=== PATIENT | female | born 1935 | race Caucasian/White ===

== ENCOUNTER → 2018-03-19 | Outpatient (CLI) | payer MEDICARE, OTHER ==
[~2018-03-19] MED LIST: AC325T PO; ACET-77 PO; ACHD5005 PO; ACID1TAB PO; ASPI-586 PO; ASPI81TA16 PO; BYSTOLIC; CA C1TAB26 PO; CEPH500C PO; CHOL100011 PO; CHOL4PAC PO; CITA20TA4 PO; CITA20TA9 PO; CITALOPRAM; CTLP20T PO; DOCU100C37 PO; Ibuprofen PO; LACT1TAB10 PO; LISI-552 PO; LISI10TA PO; LISI40TA PO; LISINOPRIL; LNZ600T PO; MGX400T PO; NEBI5TAB8 PO; NFNEB10T PO; NIAC1TBM5 PO; OMEG1CAP51 PO; OMG1KC PO; ONDN4T PO; PANT40TA3 PO; POLY17PO23 PO; SENN1TAB76 PO; SIMCOR; SIMV20TA PO; SIMV20TA3 PO; SUCR1TAB PO; TRAM50TA2 PO; [UNRECOGNIZED DRUG - CODE]; [UNRECOGNIZED DRUG - CODE]
== END ==
LOC: WOUNDCARE 08:09
PROVIDERS: ATTEND Nurse Practitioner
DX: L97.512 Non-pressure chronic ulcer of other part of right foot with fat layer exposed (principal); L03.115 Cellulitis of right lower limb
CPT/HCPCS: 11042; 87070; 87075; 87101; 87205; 99213

== ENCOUNTER → 2018-03-19 | Outpatient (CLI) | payer MEDICARE, OTHER ==
--- NOTE | 2018-03-19 15:30 | Diagnostic Imaging Report ---
EXAMINATION: Right foot, three views. COMPARISON: None. HISTORY: 82-year-old female, evaluation for osteomyelitis of the fourth toe. History of ulcer. FINDINGS: The bones are demineralized. There is uncovering of the lateral sesamoid with hallux valgus deformity. The first proximal phalanx is laterally subluxed at the first metatarsophalangeal joint. Lateral view evaluation is limited given overlap of multiple bones. There is absence of portions of the proximal aspect of the fourth middle phalanx without definite acute appearing aggressive bone destruction radiographically. There is no definite periosteal reaction. There is no identified radiopaque foreign body. There is a dorsal soft tissue marker at the level of the fourth proximal interphalangeal joint. There is a calcaneal heel spur. There is no ankle joint effusion. IMPRESSION: 1. Absence of portions of the proximal aspect of the fourth middle phalanx of uncertain exact chronicity. There is no overtly obvious aggressive bone destruction radiographically. This is a change since comparison foot radiographs of February 2015. Dedicated MRI right foot would be recommended for further evaluation of potential osteomyelitis. 2. Bone demineralization. 3. Hallux valgus deformity. 4. No identified radiopaque foreign body. Dictated by: Dictated on workstation # [id number]
== END ==
LOC: RAD 10:13
PROVIDERS: ATTEND Nurse Practitioner
DX: M81.0 Age-related osteoporosis without current pathological fracture (principal); M20.11 Hallux valgus (acquired), right foot; L97.512 Non-pressure chronic ulcer of other part of right foot with fat layer exposed
CPT/HCPCS: 73630

== ENCOUNTER → 2018-03-25 | Outpatient (CLI) | payer MEDICARE, OTHER ==
--- NOTE | 2018-03-25 13:50 | Diagnostic Imaging Report ---
PROCEDURE: MRI right lower extremity without contrast. TECHNIQUE: Multiplanar, multisequence non contrast-enhanced MRI of the right lower extremity was accomplished. INDICATION: Fourth toe redness and swelling. COMPARISON: Radiographs of 03/19/2018. FINDINGS: There is abnormal circumferential soft tissue thickening of the proximal and mid aspect of the fourth toe. This has heterogeneous increased T2 signal within the thickened soft tissues and T1 isointensity to muscle. There are erosive changes of the fourth proximal phalanx head and near-complete erosion of the fourth middle phalanx. The distal phalanx has a normal appearance. In the first metatarsal head, there are chronic periarticular erosions present along the medial aspect which can be seen with gout. The remainder of the visualized osseous structures in the forefoot are unremarkable. Hallux valgus deformity is present with crossover deformity of the great toe with the second toe. Mild fatty atrophy of the intrinsic musculature of the foot. IMPRESSION: 1. Abnormal circumferential soft tissue thickening of the fourth toe with underlying erosive changes of the middle and proximal phalanges. Imaging features are most suggestive of ooyijekp-mi-rdqedom inflammatory process such as gout. Correlation with serum uric acid levels and physical examination is advised. If the patient has a skin wound present, osteomyelitis could be present but this would be an atypical appearance for "routine" osteomyelitis. Lastly, giant cell tumor of the tendon sheath could potentially have this appearance. Dictated by: Dictated on workstation # [id number]
== END ==
LOC: RAD 11:41
PROVIDERS: ATTEND Nurse Practitioner
DX: L97.512 Non-pressure chronic ulcer of other part of right foot with fat layer exposed (principal); L03.115 Cellulitis of right lower limb

== ENCOUNTER → 2018-03-26 | Outpatient (CLI) | payer MEDICARE, OTHER | LOC: LAB 09:11 | PROVIDERS: ATTEND Nurse Practitioner | DX: L97.512 Non-pressure chronic ulcer of other part of right foot with fat layer exposed (principal); M1A.0711 Idiopathic chronic gout, right ankle and foot, with tophus (tophi); L03.115 Cellulitis of right lower limb | CPT/HCPCS: 36415; 84550 ==

== ENCOUNTER → 2018-03-26 | Outpatient (CLI) | payer MEDICARE, OTHER | LOC: WOUNDCARE 08:25 | PROVIDERS: ATTEND Nurse Practitioner | DX: M1A.0711 Idiopathic chronic gout, right ankle and foot, with tophus (tophi) (principal); L03.115 Cellulitis of right lower limb; L97.512 Non-pressure chronic ulcer of other part of right foot with fat layer exposed | CPT/HCPCS: 99212 ==

== ENCOUNTER 2018-04-02 09:35 | Emergency (ER) | payer MEDICARE, OTHER ==
[~2018-04-02] VITALS: Ht 162.6 cm; Wt 51.7 kg
--- NOTE | 2018-04-02 10:41 | ED General ---
General Chief Complaint: General Problems/Pain Stated Complaint: ELEVATED BP Nursing Triage Note: TO ROOM FROM WOUND CARE. WOUND CARE CONCERN BECAUSE B/P ELEVATED. PATIENT REPORTS THAT HAS BEEN TAKEN OFF B/P MEDS. PATIENT HAS NO C/O PAIN OR ANY PROBLEMS Nursing Sepsis Screen: No Definite Risk Source of Information: Patient Exam Limitations: No Limitations History of Present Illness Date Seen by Provider: Apr 02, 2018 Time Seen by Provider: 10:20 Initial Comments This 82-year-old woman presents to the emergency room as referred by wound care. She was found to have an unacceptably high blood pressure in the wound care clinic and was sent here by Anirudh Braswell APRN. On our assessment her blood pressure is 162/87. Patient denies any symptoms related to hypertension such as headache, blurry vision, chest pain, etc. She reports changes to her blood pressure management and recent cessation of antihypertensive medications. Allergies and Home Medications Allergies Coded Allergies: No Known Drug Allergies (Verified , 07/28/16) Home Medications Acetaminophen 500 Mg Tablet, 1,000 MG PO TID Prescribed by: ROB JIMENEZ on 08/01/162045 Aspirin 81 Mg Tablet.dr, 81 MG PO DAILY, (Reported) Aspirin 81 Mg Tablet.dr, 81 MG PO DAILY, (Reported) Ca Cmb No.1/Vit D3/B-6/Fa/B12 1 Each Tablet, 1,000 UNITS PO DAILY, (Reported) Citalopram Hydrobromide 20 Mg Tablet, 20 MG PO HS, (Reported) Docosahexanoic Acid/Epa 1 Cap Capsule, 1,000 MG PO BID, (Reported) Docusate Sodium 100 Mg Capsule, 100 MG PO BID Prescribed by: ROB JIMENEZ on 08/01/162045 Lisinopril 20 Mg Tablet, 20 MG PO DAILY@0900 Prescribed by: ROB JIMENEZ on 08/01/162045 Nebivolol HCl 5 Mg Tablet, 5 MG PO DAILY, (Reported) [place] 3 Polyunsat Fatty Acids 1,000 Mg Cap, 1,000 MG PO DAILY, (Reported) Pantoprazole Sodium 40 Mg Tablet.dr, 40 MG PO DAILY@0700 Prescribed by: ROB JIMENEZ on 08/01/162045 Simvastatin 20 Mg Tablet, 20 MG PO HS, (Reported) Sucralfate 1 Gm Tablet, 1 GM PO ACHS Prescribed by: ROB JIMENEZ on 08/01/162045 Tramadol HCl 50 Mg Tablet, 50 MG PO TID PRN for PAIN Prescribed by: JUSTINE TOMAS on 07/07/16 1226 Patient Home Medication List Home Medication List Reviewed: Yes Review of Systems Constitutional: no symptoms reported EENTM: no symptoms reported Respiratory: no symptoms reported Cardiovascular: see HPI Gastrointestinal: no symptoms reported Genitourinary: no symptoms reported Musculoskeletal: no symptoms reported Skin: no symptoms reported Psychiatric/Neurological: No Symptoms Reported Hematologic/Lymphatic: No Symptoms Reported Past Bogptlj-Hbwaaz-Whmdxr Hx Past Med/Social Hx: Reviewed and Corrections made Patient Social History Alcohol Use: Denies Use Recreational Drug Use: No Smoking Status: Never a Smoker Recent Foreign Travel: No Contact w/Someone Who Travel: No Recent Infectious Disease Expo: No Recent Hopitalizations: No Immunizations Up To Date Tetanus Booster (TDap): Unknown PED Vaccines UTD: No Date of Pneumonia Vaccine: Jul 22, 2017 Date of Influenza Vaccine: Jul 22, 2017 Seasonal Allergies Seasonal Allergies: No Past Medical History Surgeries: No Respiratory: No Cardiac: Yes (SEES DR. MOTTA UNSURE WHY) Hypertension Neurological: Yes Dementia Reproductive Disorders: No Female Reproductive Disorders: Denies Sexually Transmitted Disease: No HIV/AIDS: No Genitourinary: Yes UTI-Chronic Gastrointestinal: No Musculoskeletal: Yes Fractures, Gout Endocrine: Yes Hyperthyroidism HEENT: Yes Cataract Loss of Vision: Denies Hearing Impairment: Hard of Hearing Cancer: No Psychosocial: No Integumentary: No Recent Skin Changes Blood Disorders: No Adverse Reaction/Blood Tranf: No Family Medical History Dementia G8 SISTER Diabetes mellitus 19 FATHER No Pertinent Family Hx, Diabetes, Psychiatric Problems Physical Exam Vital Signs Vital Signs - First Documented 04/02/18 10:47 Pulse 68 Resp 18 B/P (MAP) 162/87 Pulse Ox 93 O2 Delivery Room Air Capillary Refill : Less Than 3 Seconds General Appearance: No Apparent Distress, WD/WN HEENT: PERRL/EOMI, Normal ENT Inspection Neck: Normal Inspection Respiratory: Lungs Clear, Normal Breath Sounds, No Accessory Muscle Use, No Respiratory Distress Cardiovascular: Regular Rate, Rhythm, No Edema, No Murmur Neurologic/Psychiatric: Alert, Oriented x3, No Motor/Sensory Deficits, Normal Mood/Affect, laboratory inspector II-XII Norm as Tested Skin: Normal Color, Warm/Dry Progress/Results/Core Measures Suspected Sepsis Recent Fever Within 48 Hours: No Infection Criteria Present: None New/Unexplained Altered Menta: No Sepsis Screen: No Definite Risk SIRS Temperature: Pulse: Respiratory Rate: Blood Pressure / Mean: Results/Orders Vital Signs/I&O Capillary Refill : Less Than 3 Seconds Progress Note : Progress Note Patient has asymptomatic non-critical hypertension and was referred back to her primary care provider for repeat blood pressure check and medication management. Departure Impression Primary Impression: Hypertension Qualified Codes: I10 - Essential (primary) hypertension Disposition: HOME, SELF-CARE Condition: Improved Departure-Patient Inst. Decision time for Depature: 10:30 Referrals: HERNESTO CATALAN MD (PCP/Family) Primary Care Physician Add. Discharge Instructions: Follow-up with your primary care provider soon as possible for a repeat blood pressure check. Please call today for an appointment. Return to emergency room if you are developing symptoms such as headache, changes in vision, chest pain, etc. that may be related to high blood pressure. If you're not able to secure an appointment within the next few days, please stop in the clinic for a blood pressure check. All discharge instructions reviewed with patient and/or family. Voiced understanding. Copy Copies To 1: EVAN YEBOAH JOSHUA T MD Apr 02, 2018 10:41
[2018-04-02 10:47] VITALS: BP 162/87
== END 2018-04-02 10:46 | disposition home or self-care (01) ==
LOC: EDUNIT# 09:35 → ER 09:38
DX: I10 Essential (primary) hypertension (principal); F03.90 Unspecified dementia, unspecified severity, without behavioral disturbance, psychotic disturbance, mood disturbance, and anxiety; M06.9 Rheumatoid arthritis, unspecified; E05.90 Thyrotoxicosis, unspecified without thyrotoxic crisis or storm; Z87.81 Personal history of (healed) traumatic fracture; Z79.82 Long term (current) use of aspirin
CPT/HCPCS: 99281

== ENCOUNTER → 2018-04-02 | Outpatient (CLI) | payer MEDICARE, OTHER | LOC: WOUNDCARE 08:19 | PROVIDERS: ATTEND Nurse Practitioner | DX: L97.512 Non-pressure chronic ulcer of other part of right foot with fat layer exposed (principal); M1A.0711 Idiopathic chronic gout, right ankle and foot, with tophus (tophi) | CPT/HCPCS: 99212 ==

== ENCOUNTER 2018-04-18 07:16 | Emergency (ER) | payer MEDICARE, OTHER ==
[~2018-04-18] VITALS: Ht 160 cm; Wt 54.4 kg
[2018-04-18] MEDS ORDERED: TETANUS,DIPTH,PERTUSS P/F (BOOSTRIX) 0.5 ML VIAL IM STA (07:30)
--- NOTE | 2018-04-18 07:38 | ED Fall/Injury ---
General Chief Complaint: Trauma-Non Activation Stated Complaint: FELL,HEAD INJ Source: patient Exam Limitations: no limitations History of Present Illness Date Seen by Provider: Apr 18, 2018 Time Seen by Provider: 07:19 Initial Comments Here with report of fall and head injury this morning. Apparently was walking with her walker when she lost her balance and went forward. She is able to get herself righted and then fell backwards against the door frame. She hit her head on the door frame and has a bump on the back of her head on the left side as well as abrasion. No loss of consciousness. She did not go all the way to the floor. States that she is not sick currently does not feel weaker than normal but she was 82. She reports that is the reason for her imbalance. Denies nausea or vomiting. Denies vision problems. Occurred: this morning Severity: mild Injuries/Pain Location: head Context: lost balance Loss of Consciousness: no loss of consciousness Modifying Factors: Improves With Rest Associated Symptoms (Fall): No Abdominal Pain, No Chest Pain, No Confusion, No Headache, No Muscle Spasms, No Nausea/Vomiting, No Vision Changes Allergies and Home Medications Allergies Coded Allergies: No Known Drug Allergies (Verified , 07/28/16) Home Medications Acetaminophen 500 Mg Tablet, 1,000 MG PO TID Prescribed by: ROB JIMENEZ on 08/01/162045 Aspirin 81 Mg Tablet.dr, 81 MG PO DAILY, (Reported) Aspirin 81 Mg Tablet.dr, 81 MG PO DAILY, (Reported) Ca Cmb No.1/Vit D3/B-6/Fa/B12 1 Each Tablet, 1,000 UNITS PO DAILY, (Reported) Citalopram Hydrobromide 20 Mg Tablet, 20 MG PO HS, (Reported) Docosahexanoic Acid/Epa 1 Cap Capsule, 1,000 MG PO BID, (Reported) Docusate Sodium 100 Mg Capsule, 100 MG PO BID Prescribed by: ROB JIMENEZ on 08/01/162045 Lisinopril 20 Mg Tablet, 20 MG PO DAILY@0900 Prescribed by: ROB JIMENEZ on 08/01/162045 Nebivolol HCl 5 Mg Tablet, 5 MG PO DAILY, (Reported) [place] 3 Polyunsat Fatty Acids 1,000 Mg Cap, 1,000 MG PO DAILY, (Reported) Pantoprazole Sodium 40 Mg Tablet.dr, 40 MG PO DAILY@0700 Prescribed by: ROB JIMENEZ on 08/01/162045 Simvastatin 20 Mg Tablet, 20 MG PO HS, (Reported) Sucralfate 1 Gm Tablet, 1 GM PO ACHS Prescribed by: ROB JIMENEZ on 08/01/162045 Tramadol HCl 50 Mg Tablet, 50 MG PO TID PRN for PAIN Prescribed by: JUSTINE TOMAS on 07/07/16 1226 Patient Home Medication List Home Medication List Reviewed: Yes Review of Systems Constitutional: see HPI; No chills, No fever Eyes: No Symptoms Reported Ears, Nose, Mouth, Throat: no symptoms reported Respiratory: no symptoms reported Cardiovascular: No chest pain, No syncope Gastrointestinal: No nausea, No vomiting Genitourinary: no symptoms reported Musculoskeletal: No back pain, No joint pain, No neck pain Skin: see HPI, change in color, lesions Psychiatric/Neurological: No Symptoms Reported Past Ldynhnd-Qinmxw-Wxtuqa Hx Past Med/Social Hx: Reviewed and Corrections made Patient Social History Alcohol Use: Denies Use Recreational Drug Use: No Smoking Status: Never a Smoker Recent Foreign Travel: No Contact w/Someone Who Travel: No Recent Hopitalizations: No Immunizations Up To Date Tetanus Booster (TDap): Unknown PED Vaccines UTD: No Date of Pneumonia Vaccine: Jul 22, 2017 Date of Influenza Vaccine: Jul 22, 2017 Seasonal Allergies Seasonal Allergies: No Past Medical History Surgeries: No Respiratory: No Cardiac: Yes (SEES DR. MOTTA UNSURE WHY) Hypertension Neurological: Yes Dementia Reproductive Disorders: No Female Reproductive Disorders: Denies Sexually Transmitted Disease: No HIV/AIDS: No Genitourinary: Yes UTI-Chronic Gastrointestinal: No Musculoskeletal: Yes Fractures, Gout Endocrine: Yes Hyperthyroidism HEENT: Yes Cataract Loss of Vision: Denies Hearing Impairment: Hard of Hearing Cancer: No Psychosocial: No Integumentary: No Recent Skin Changes Blood Disorders: No Adverse Reaction/Blood Tranf: No Family Medical History Reviewed Nursing Family Hx Dementia G8 SISTER Diabetes mellitus 19 FATHER No Pertinent Family Hx, Diabetes, Psychiatric Problems Physical Exam Vital Signs Vital Signs - First Documented 04/18/18 07:16 Temp 97.4 Pulse 77 Resp 16 B/P (MAP) 160/67 (98) Pulse Ox 97 O2 Delivery Room Air Capillary Refill : General Appearance: WD/WN, no apparent distress HEENT: PERRL/EOMI, pharynx normal Neck: full range of motion, supple Cardiovascular: regular rate, rhythm, no murmur Respiratory: lungs clear, normal breath sounds Peripheral Pulses: 2+ Dorsalis Pedis (R), 2+ Left Dors-Pedis (L), 2+ Radial Pulses (R), 2+ Radial Pulses (L) Gastrointestinal: non tender, soft Back: normal inspection, no CVA tenderness, no vertebral tenderness Extremities: non-tender, normal inspection Neurologic/Psychiatric: alert, oriented x 3 Skin: warm/dry, other (abrasion overlying 3 x 3 cm scalp hematoma left posterior scalp. No significant laceration.) Elda Coma Score Best Eye Response: (4) Open Spontaneously Best Verbal Response: (5) Oriented Best Motor Response: (6) Obeys Commands Progress/Results/Core Measures Results/Orders My Orders Orders - KRISS SAGASTUME MD Ct Head/Cervical Spine Wo (04/18/18 07:30) Dipht,Pertuss(Acell),Tet Adult (Boostrix (04/18/18 07:30) Vital Signs/I&O 04/18/18 07:16 Temp 97.4 Pulse 77 Resp 16 B/P (MAP) 160/67 (98) Pulse Ox 97 O2 Delivery Room Air Progress Progress Note : Progress Note Seen and evaluated. CT head and neck ordered. Wound cleaned and covered with antibiotic per nursing. Monitor patient. Tetanus updated. 0820: No acute findings. Discharged home with return precautions. Patient verbalize understanding instructions and agreement with plan. Diagnostic Imaging Diagonstic Imaging: CT Plain Films/CT/US/NM/MRI: c-spine, head Comments NAME: SUDARSHAN BARBOSA [facility] REC#: [id number] PT STATUS: REG ER : 1935 PHYSICIAN: KRISS SAGASTUME MD ADMIT DATE: 04/18/18/ER Draft Date of Exam:04/18/18 CT HEAD/CERVICAL SPINE WO PROCEDURE: CT head and CT cervical spine without contrast. TECHNIQUE: Multiple contiguous axial images were obtained through the brain and cervical spine without the use of intravenous contrast. Sagittal and coronal reformations through the cervical spine were then performed. INDICATION: Fall striking the head. Study correlated with brain MRI performed in [address] 06/13/2012. No prior cervical imaging CT head: There is focal soft tissue irregularities posterior left laterally with the underlying calvarium appearing normal. No fracture deformity. No hemo-sinus. There is cerebral cortical atrophy and periventricular white matter small vessel sequelae but no evidence for edema or hemorrhage. No mass or mass effect. Aside from the soft tissue swelling, no other acute abnormality identified. CT cervical spine: There is grade 1 anterolisthesis C3 on C4, C4 on C5 and retrolisthesis C6 on C7; these are all about 2-3 mm and are accompanied by degenerative changes to the discs, endplates, uncovertebral joints and facets. Cervical statures are within normal limits and there was no acute or suspicious endplate irregularity or fracture. There is vascular calcifications of the carotids. There is no paravertebral mass, hemorrhage or fluid collection. IMPRESSION: CT head: Soft tissue swelling in the left scalp posteriorly but no underlying fracture or intracranial hemorrhage. There are chronic senescent intracranial changes of atrophy and white matter disease but no hemorrhage or other abnormality. CT cervical spine: Degenerative changes throughout the cervical spine are believed to account for slight grade 1 multilevel degenerative listhesis. No fracture or dislocation. Dictated on workstation # [id number] Dict: 04/18/18 0802 Trans: 04/18/18 0816 SRINIVASAN [id number] Interpreted by: COLT GUILLORY Electronically signed by: Departure Impression Primary Impression: Head injury, acute, without loss of consciousness Qualified Codes: S09.90XA - Unspecified injury of head, initial encounter Additional Impression: Abrasion Disposition: 01 HOME, SELF-CARE Condition: Stable Departure-Patient Inst. Decision time for Depature: 08:25 Referrals: HERNESTO CATALAN MD (PCP/Family) Primary Care Physician Patient Instructions: Minor Head Injury (DC), Skin Abrasions (DC) Add. Discharge Instructions: All discharge instructions reviewed with patient and/or family. Voiced understanding. Follow-up with your doctor this week for recheck. Return for worsening, fever, vomiting, weakness, breathing problems or other concerns as needed. You may use antibiotic ointment over area of abrasion on the back of the head once or twice daily for the next several days and then as needed. KRISS SAGASTUME MD Apr 18, 2018 07:38
--- NOTE | 2018-04-18 08:16 | Diagnostic Imaging Report ---
PROCEDURE: CT head and CT cervical spine without contrast. TECHNIQUE: Multiple contiguous axial images were obtained through the brain and cervical spine without the use of intravenous contrast. Sagittal and coronal reformations through the cervical spine were then performed. INDICATION: Fall striking the head. Study correlated with brain MRI performed in [address] 06/13/2012. No prior cervical imaging CT head: There is focal soft tissue irregularities posterior left laterally with the underlying calvarium appearing normal. No fracture deformity. No hemo-sinus. There is cerebral cortical atrophy and periventricular white matter small vessel sequelae but no evidence for edema or hemorrhage. No mass or mass effect. Aside from the soft tissue swelling, no other acute abnormality identified. CT cervical spine: There is grade 1 anterolisthesis C3 on C4, C4 on C5 and retrolisthesis C6 on C7; these are all about 2-3 mm and are accompanied by degenerative changes to the discs, endplates, uncovertebral joints and facets. Cervical statures are within normal limits and there was no acute or suspicious endplate irregularity or fracture. There is vascular calcifications of the carotids. There is no paravertebral mass, hemorrhage or fluid collection. IMPRESSION: CT head: Soft tissue swelling in the left scalp posteriorly but no underlying fracture or intracranial hemorrhage. There are chronic senescent intracranial changes of atrophy and white matter disease but no hemorrhage or other abnormality. CT cervical spine: Degenerative changes throughout the cervical spine are believed to account for slight grade 1 multilevel degenerative listhesis. No fracture or dislocation. Dictated by: Dictated on workstation # [id number]
[2018-04-18 08:40] VITALS: BP 190/86
== END 2018-04-18 08:40 | disposition home or self-care (01) ==
LOC: EDUNIT# 07:16 → ER 07:18
DX: S09.90XA Unspecified injury of head, initial encounter (principal); S00.01XA Abrasion of scalp, initial encounter; I10 Essential (primary) hypertension; F03.90 Unspecified dementia, unspecified severity, without behavioral disturbance, psychotic disturbance, mood disturbance, and anxiety; M10.9 Gout, unspecified; E05.90 Thyrotoxicosis, unspecified without thyrotoxic crisis or storm; R40.2142 Coma scale, eyes open, spontaneous, at arrival to emergency department; R40.2252 Coma scale, best verbal response, oriented, at arrival to emergency department; R40.2362 Coma scale, best motor response, obeys commands, at arrival to emergency department; Z23 Encounter for immunization; Z79.82 Long term (current) use of aspirin; Z99.89 Dependence on other enabling machines and devices; W01.198A Fall on same level from slipping, tripping and stumbling with subsequent striking against other object, initial encounter
CPT/HCPCS: 70450; 72125; 90471; 90715; 99284

== ENCOUNTER 2018-05-30 18:14 | Emergency (ER) | payer MEDICARE, OTHER ==
[~2018-05-30] VITALS: Ht 160 cm; Wt 54.4 kg
--- OUTSIDE RECORDS SUMMARY | 2018-05-30 18:48 | XMS REPORT | Clinical Summary ---
Author Author [facility] Organization [facility] Address Unknown Phone Unavailable Care Team Providers Care Orchestra Director Name Role Phone Jose M Miranda MD Unavailable Unavailable Source Comments Some departments are not documenting in the electronic medical record. If you do not see the information that you expected, contact Release of Information in the Health Information Management department at [phone] for further assistance in locating additional records.[facility] Allergies No Known Allergies Current Medications Prescription Sig. Disp. Refills Start End Date Status Date acetaminophen (TYLENOL) Take 325 mg by mouth Active 325 mg tablet twice daily. IBUPROFEN PO Take by mouth daily. Active aspirin EC 81 mg tablet Take 81 mg by mouth Active daily. Coenzyme Q10 (CO Q-10) 10 Take by mouth daily. Active mg cap magnesium oxide 400 mg Take by mouth daily. Active cap nebivolol (BYSTOLIC) 5 mg Take 5 mg by mouth daily. Active tablet lisinopril (PRINIVIL, Take 40 mg by mouth Active ZESTRIL) 40 mg tablet daily. citalopram (CELEXA) 20 mg Take 20 mg by mouth Active tablet daily. simvastatin (ZOCOR) 20 mg Take 20 mg by mouth at Active tablet bedtime daily. 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 Family History Medical History Relation Name Comments Diabetes Father Hypertension Father Hypertension Mother Relation Name Status Comments Father Mother Social History Tobacco Use Types Packs/Day Years Used Date Never Smoker Smokeless Tobacco: Never Used Alcohol Use Drinks/Week oz/Week Comments No 0 Standard 0.0 drinks or equivalent Sex Assigned at Date Recorded Not on file Last Filed Vital Signs Vital Sign Reading Time Taken Blood Pressure 125/68 03/30/2016 2:13 PM CDT Pulse 61 03/30/2016 2:13 PM CDT Temperature - - Respiratory Rate - - Oxygen Saturation - - Inhaled Oxygen - - Concentration Weight 57.2 kg (126 lb) 03/30/2016 2:13 PM CDT Height 162.6 cm (5' 4") 03/30/2016 2:13 PM CDT Body Mass Index 21.63 03/30/2016 2:13 PM CDT Plan of Treatment Health Maintenance Due Date Last Done Comments PHYSICAL (COMPREHENSIVE) 1941 EXAM PERTUSSIS VACCINE 1945 TETANUS VACCINE 1951 SHINGLES RECOMBINANT 1984 VACCINE (1 of 2) OSTEOPOROSIS SCREENING 1999 PNEUMONIA (PCV13/PPSV23) 1999 VACCINES (1 of 2 - PCV13) INFLUENZA VACCINE 07/22/2018 Results Not on filefrom Last 3 Months
--- OUTSIDE RECORDS SUMMARY | 2018-05-30 18:48 | XMS REPORT ---
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 38395138 Problem Psychosis, unspecified psychosis type F29 Active 57998282 Problem 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 Active 79368962 Problem Unspecified dementia without behavioral disturbance F03.90 Active 63018536 Problem Hallucinations R44.3 Active 7901022 ALLERGIES No Known Allergies ENCOUNTERS Encounter Location Date Diagnosis [place] [id number] [place] [address] 50403- 6707 Jun, [place] [address] 49700- 4233 May, Hallucinations R44.3 ; Hypertension I10 and Toe pain, right M79.674 [place] [id number] [place] [address] 73620- 8413 Apr, Hallucinations R44.3 ; 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 and Toe pain, right M79.674 [place] [address] 01389- 7259 Mar, [place] [address] 54561- 7722 Mar, Hallucinations R44.3 [facility] [place] [address] [address] 14 Mar, 2018 [facility] [place] [id number] [place] [address] 51272- 0793 13 Mar, 2018 Delusional disorder F22 and Psychosis, unspecified psychosis type F29 [facility] [place] [id number] [place] [address] 41962- 4334 Mar, [facility] [place] [id number] [place] [address] 93732- 1144 Mar, [facility] [place] [id number] [place] [address] 11944- 4979 February, Local infection of the skin and subcutaneous tissue, unspecified L08.9 and Other injury of unspecified body region, initial encounter T14.8XXA [facility] [place] [id number] [place] [address] 62500- 2087 February, [facility] [place] [id number] [place] [address] 83272- 1131 February, [facility] [place] [id number] [place] [address] 18096- 0361 Jan, Hallucinations R44.3 [facility] [place] [id number] [place] [address] 14680- 4292 19 Dec, 2017 Psychosis, unspecified psychosis type F29 [facility] [place] [address] [address] 9794 15 Dec, 2017 [facility] [place] [id number] [place] [address] 06272- 4493 Dec, [facility] [place] [id number] [place] [address] 47242- 0599 Nov, Unspecified dementia without behavioral disturbance F03.90 and 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 [facility] [place] [id number] [place] [address] 78755- 3444 Oct, [facility] [place] [id number] [place] [address] 95494- 5572 Oct, [place] [id number] [place] [address] 97868- 4748 Oct, [place] [id number] [place] [address] 86453- 2016 Oct, Dementia, unspecified, without behavioral disturbance F03.90 [place] [id number] [place] [address] 76342- 2214 Sep, Medicare annual wellness visit, initial Z00.00 and Encounter for immunization Z23 [place] [address] 45887- 9492 Aug, 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 and Hallucinations R44.3 [place] [address] 63456- 6656 Aug, [place] [id number] [place] [address] 81944- 3717 Jul, Encounter for immunization Z23 [place] [id number] [place] [address] 95809- 4650 Jun, Hallucinations R44.3 [place] [id number] [place] [address] 01739- 0653 Jun, Hallucinations R44.3 [place] [id number] [place] [address] 10209- 0483 May, Arthralgia of left knee M25.562 ; Age-related nuclear cataract of both eyes H25.13 and Hallucinations R44.3 [place] [id number] [place] [address] 05951- 2364 May, [place] [id number] [place] [address] 12257- 5474 May, [place] [id number] [place] [address] 17320- 7368 Mar, Hyperlipidemia E78.5 and Hypertension I10 [facility] [place] [id number] [place] [address] 40247- 6760 16 Mar, 2017 Hyperlipidemia E78.5 and Hypertension I10 [facility] [place] [id number] [place] [address] 66215- 3742 Mar, [facility] [place] [id number] [place] [address] 46169- 7528 Nov, Hypertension I10 ; 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 ; 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 and 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 [facility] [place] [address] 18604- 0561 14 Aug, 2016 [facility] [place] [id number] [place] [address] 74604- 8978 Aug, [facility] [place] [address] 40550- 5740 Aug, Hypertension I10 and 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 [facility] [place] [id number] [place] [address] 73987- 7562 Jul, [facility] [place] [id number] [place] [address] 42647- 9837 26 Jun, 2016 [facility] [place] [id number] [place] [address] 42482- 3430 23 Jun, 2016 [facility] [place] [id number] [place] [address] 18411- 1612 23 Jun, 2016 [facility] [place] [id number] [place] [address] 60919- 4017 20 Jun, 2016 [facility] [place] [id number] [place] [address] 46230- 8972 16 Jun, 2016 [facility] [id number] [place] [address] 88244 -6338 13 May, 2016 Urinary frequency R35.0 and Acute cystitis without hematuria N30.00 [place] [id number] [place] [address] 42366- 1734 Jan, [place] [id number] [place] [address] 24455- 6501 Jan, [facility] [place] [id number] [place] [address] 97681- 9814 Dec, Hyperlipidemia E78.5 [place] [address] 58795- 1026 Dec, 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 ; Hyperlipidemia E78.5 and Hypertension I10 [place] [id number] [place] [address] 81496- 2796 Nov, [place] [id number] [place] [address] 44267- 4837 Aug, 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 ; Senile cataracts of both eyes H25.9 and Constipation, unspecified constipation type K59.00 [place] [id number] [place] [address] 92180- 3987 Jun, Unspecified psychosis 298.9 and 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 [place] [id number] [place] [address] 87432- 0194 Jun, 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 [place] [id number] [place] [address] 84543- 3585 May, Dementia 294.20 [place] [id number] [place] [address] 53443- 8553 May, Establishing care with new doctor, encounter for V65.8 ; Ataxia 781.3 ; Horizontal nystagmus 379.56 ; Hypertension 401.9 ; Hyperlipidemia 272.4 and History of TIA (transient ischemic attack) V12.54 [place] [id number] [place] [address] 42041- 7514 May, [place] [address] 28153- 7132 May, IMMUNIZATIONS No Known Immunizations SOCIAL HISTORY Never Assessed REASON FOR VISIT [facility]----[facility] PLAN OF CARE Activity Details Follow Up 3 Months Reason:hallucinations VITAL SIGNS Height 64 in 2018-02-18 Weight 114 lbs 2018-02-18 Temperature 98.1 degrees Fahrenheit 2018-02-18 Heart Rate 70 bpm 2018-02-18 Respiratory Rate 20 2018-02-18 BMI 19.57 kg/m2 2018-02-18 Blood pressure systolic 124 mmHg 2018-02-18 Blood pressure diastolic 62 mmHg 2018-02-18 MEDICATIONS Medication Instructions Dosage Frequency Start Date End Date Duration Status Fish Oil 1000 MG Orally Twice a day 1 capsule 12h Active Aspirin Low Dose 81 MG Orally Once a day 1 tablet 24h Active Lexapro 10 mg Orally Once a day 1/2 tablet 24h Dec, Active Vitamin D 1000 UNIT Orally Once a day 1 tablet 24h Active RESULTS No Results PROCEDURES Procedure Date Ordered Result Body Site [facility] VISIT ESTABLISHED PATIENT February 18, 2018 INSTRUCTIONS MEDICATIONS ADMINISTERED No Known Medications MEDICAL (GENERAL) HISTORY Type Description Date Medical History coronary artery disease Medical History Carotid stenosis Medical History hypertension Medical History hyperlipidemia Medical History mitral valve regurgitation Medical History vitamin D deficiency Medical History nystagmus Medical History chest pain syndrome/palpitations Medical History ataxia/unsteady gait Medical History TIAs Medical History stress test 02/2012 EF 81%; 05/2014 EF 78% Medical History echo 02/2012 EF 60% mild MR,TR, AV stenosis; 05/2014 EF 60% aortic regurgitatio, MR, TR Medical History carotid duplex 01/2012 <40% Bilat; 05/2014 <40% bilat Medical History cataracts Surgical History left cataract surgery 11/2017 Hospitalization History falls Hospitalization History left hip pain, age-indeterminate pubic rami fracture-- [facility] 07/07/16
--- OUTSIDE RECORDS SUMMARY | 2018-05-30 18:48 | XMS REPORT ---
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 90898246 Problem Psychosis, unspecified psychosis type F29 Active 20409592 Problem 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 Active 87768956 Problem Unspecified dementia without behavioral disturbance F03.90 Active 20909501 Problem Hallucinations R44.3 Active 1713906 ALLERGIES No Information ENCOUNTERS Encounter Location Date Diagnosis [place] [id number] [place] [address] 67798- 8953 May, [place] [id number] [place] [address] 07824- 3200 Apr, Hallucinations R44.3 ; 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 and Toe pain, right M79.674 [facility] [id number] [place] [address] 67841- 5396 Mar, [facility] [address] 51899- 2055 Mar, Hallucinations R44.3 [facility] [id number] [place] [address] 45974- 1293 Mar, [facility] [address] 84603- 7634 Mar, Delusional disorder F22 and Psychosis, unspecified psychosis type F29 [facility] [id number] [place] [address] 97258- 5192 Mar, [facility] [id number] [place] [address] 08802- 5970 Mar, [facility] [id number] [place] [address] 92381- 3955 February, Local infection of the skin and subcutaneous tissue, unspecified L08.9 and Other injury of unspecified body region, initial encounter T14.8XXA [facility] [id number] [place] [address] 68287- 8359 February, [facility] [id number] [place] [address] 52532- 6885 February, [facility] [id number] [place] [address] 40193- 4598 Jan, Hallucinations R44.3 [facility] [id number] [place] [address] 39051- 3453 Dec, Psychosis, unspecified psychosis type F29 [facility] [id number] [place] [address] 24096- 5734 Dec, [facility] [id number] [place] [address] 09508- 4042 Dec, [facility] [id number] [place] [address] 03287- 7696 Nov, Unspecified dementia without behavioral disturbance F03.90 and 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 [facility] [id number] [place] [address] 13971- 4805 Oct, [facility] [id number] [place] [address] 63987- 2893 Oct, [facility] [id number] [place] [address] 71418- 3922 Oct, [facility] [address] [place] [address] 18996- 1936 Oct, Dementia, unspecified, without behavioral disturbance F03.90 [place] [id number] [place] [address] 15932- 0151 Sep, Medicare annual wellness visit, initial Z00.00 and Encounter for immunization Z23 [place] [id number] [place] [address] 06096- 0470 Aug, 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 and Hallucinations R44.3 [place] [id number] [place] [address] 83293- 4942 Aug, [place] [id number] [place] [address] 74666- 1799 Jul, Encounter for immunization Z23 [place] [id number] [place] [address] 68913- 0795 Jun, Hallucinations R44.3 [place] [id number] [place] [address] 35354- 4464 Jun, Hallucinations R44.3 [place] [id number] [place] [address] 65638- 3130 May, Arthralgia of left knee M25.562 ; Age-related nuclear cataract of both eyes H25.13 and Hallucinations R44.3 [place] [id number] [place] [address] 06937- 7078 May, [place] [id number] [place] [address] 36734- 7771 May, [place] [id number] [place] [address] 01862- 6477 Mar, Hyperlipidemia E78.5 and Hypertension I10 [place] [id number] [place] [address] 53755- 2805 Mar, Hyperlipidemia E78.5 and Hypertension I10 [facility] [id number] [place] [address] 31953- 7184 Mar, [facility] [id number] [place] [address] 39759- 1877 15 Nov, 2016 Hypertension I10 ; 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 ; 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 and 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 [facility] [id number] [place] [address] 68888- 8527 14 Aug, 2016 [facility] [id number] [place] [address] 76392- 4564 Aug, [facility] [id number] [place] [address] 71749- 8565 Aug, Hypertension I10 and 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 [facility] [id number] [place] [address] 90966- 5182 14 Jul, 2016 [facility] [id number] [place] [address] 60674- 9799 26 Jun, 2016 [facility] [id number] [place] [address] 91105- 0782 23 Jun, 2016 [facility] [id number] [place] [address] 95526- 8067 23 Jun, 2016 [facility] [id number] [place] [address] 96732- 0024 20 Jun, 2016 [facility] [id number] [place] [address] 57424- 2428 16 Jun, 2016 [facility] [id number] [place] [address] 11264 -6690 13 May, 2016 Urinary frequency R35.0 and Acute cystitis without hematuria N30.00 [facility] [id number] [place] [address] 62773- 2357 Jan, [facility] [id number] [place] [address] 97651- 6483 Jan, [place] [id number] [place] [address] 88757- 7582 Dec, Hyperlipidemia E78.[address] 06734- 0768 Dec, 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 ; Hyperlipidemia E78.5 and Hypertension I10 [address] 64962- 6139 Nov, [place] [id number] [place] [address] 47058- 7040 Aug, 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 ; Senile cataracts of both eyes H25.9 and Constipation, unspecified constipation type K59.[address] 17099- 4888 Jun, Unspecified psychosis 298.9 and 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 19829- 2457 Jun, 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 80409- 6546 May, Dementia 294.20 [place] [id number] [place] [address] 41693- 8954 May, Establishing care with new doctor, encounter for V65.8 ; Ataxia 781.3 ; Horizontal nystagmus 379.56 ; Hypertension 401.9 ; Hyperlipidemia 272.4 and History of TIA (transient ischemic attack) V12.54 [place] [id number] [place] [address] 45752- 1445 May, [address] 21362- 7891 May, IMMUNIZATIONS No Known Immunizations SOCIAL HISTORY Never Assessed REASON FOR VISIT Medication side effects PLAN OF CARE VITAL SIGNS MEDICATIONS Unknown Medications RESULTS No Results PROCEDURES No Known procedures INSTRUCTIONS MEDICATIONS ADMINISTERED No Known Medications MEDICAL [...] left hip pain, age-indeterminate pubic rami fracture-- [facility] 07/07/16
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
--- OUTSIDE RECORDS SUMMARY | 2018-05-30 18:49 | XMS REPORT ---
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
--- OUTSIDE RECORDS SUMMARY | 2018-05-30 18:49 | XMS REPORT ---
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
--- OUTSIDE RECORDS SUMMARY | 2018-05-30 18:49 | XMS REPORT ---
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 79074324 Problem Psychosis, unspecified psychosis type F29 Active 37466640 Problem 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 Active 99318086 Problem Unspecified dementia without behavioral disturbance F03.90 Active 87629070 Problem Hallucinations R44.3 Active 1968370 ALLERGIES No Information ENCOUNTERS Encounter Location Date Diagnosis [place] [id number] [place] [address] 00161- 6079 May, [place] [id number] [place] [address] 99237- 4785 Apr, Hallucinations R44.3 ; 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 and Toe pain, right M79.674 [facility] [id number] [place] [address] 42978- 5718 Mar, [facility] [address] 71413- 5602 Mar, Hallucinations R44.3 [facility] [id number] [place] [address] 95471- 6145 Mar, [facility] [address] 45237- 5389 Mar, Delusional disorder F22 and Psychosis, unspecified psychosis type F29 [facility] [id number] [place] [address] 44443- 5465 Mar, [facility] [id number] [place] [address] 12665- 5525 Mar, [facility] [id number] [place] [address] 41989- 7073 February, Local infection of the skin and subcutaneous tissue, unspecified L08.9 and Other injury of unspecified body region, initial encounter T14.8XXA [facility] [id number] [place] [address] 38760- 9633 February, [facility] [id number] [place] [address] 40016- 7537 February, [facility] [id number] [place] [address] 26644- 0975 Jan, Hallucinations R44.3 [facility] [id number] [place] [address] 46236- 6225 Dec, Psychosis, unspecified psychosis type F29 [facility] [id number] [place] [address] 86549- 7421 Dec, [facility] [id number] [place] [address] 21987- 1584 Dec, 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 [id number] [place] [address] 72354- 9245 Oct, [facility] [id number] [place] [address] 78331- 9408 Oct, [facility] [id number] [place] [address] 42536- 8818 Oct, [facility] [address] [place] [address] 26396- 2041 Oct, Dementia, unspecified, without behavioral disturbance F03.90 [place] [id number] [place] [address] 69031- 5776 Sep, Medicare annual wellness visit, initial Z00.00 and Encounter for immunization Z23 [place] [id number] [place] [address] 35699- 0359 Aug, 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 and Hallucinations R44.3 [place] [id number] [place] [address] 85431- 8775 Aug, [place] [id number] [place] [address] 82577- 6334 Jul, Encounter for immunization Z23 [place] [id number] [place] [address] 01658- 1563 Jun, Hallucinations R44.3 [place] [id number] [place] [address] 79292- 8353 Jun, Hallucinations R44.3 [place] [id number] [place] [address] 05268- 5969 May, Arthralgia of left knee M25.562 ; Age-related nuclear cataract of both eyes H25.13 and Hallucinations R44.3 [place] [id number] [place] [address] 61023- 3011 May, [place] [id number] [place] [address] 50076- 4649 May, [place] [id number] [place] [address] 45151- 0283 Mar, Hyperlipidemia E78.5 and Hypertension I10 [place] [id number] [place] [address] 42133- 9874 Mar, Hyperlipidemia E78.5 and Hypertension I10 [facility] [id number] [place] [address] 29329- 0571 Mar, [facility] [id number] [place] [address] 43176- 8825 15 Nov, 2016 Hypertension I10 ; 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 ; 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 and 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 [facility] [id number] [place] [address] 54942- 9024 14 Aug, 2016 [facility] [id number] [place] [address] 31713- 2194 Aug, [facility] [id number] [place] [address] 39316- 5903 Aug, Hypertension I10 and 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 [facility] [id number] [place] [address] 60372- 6662 14 Jul, 2016 [facility] [id number] [place] [address] 74866- 9862 26 Jun, 2016 [facility] [id number] [place] [address] 32374- 4665 23 Jun, 2016 [facility] [id number] [place] [address] 73333- 3288 23 Jun, 2016 [facility] [id number] [place] [address] 47309- 4863 20 Jun, 2016 [facility] [id number] [place] [address] 58930- 9615 16 Jun, 2016 [facility] [id number] [place] [address] 61931 -6878 13 May, 2016 Urinary frequency R35.0 and Acute cystitis without hematuria N30.00 [facility] [id number] [place] [address] 85509- 2611 Jan, [facility] [id number] [place] [address] 45257- 5086 Jan, [place] [id number] [place] [address] 83316- 3370 Dec, Hyperlipidemia E78.[address] 09287- 6268 Dec, 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 ; Hyperlipidemia E78.5 and Hypertension I10 [address] 66403- 7169 Nov, [place] [id number] [place] [address] 37601- 0338 Aug, 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 ; Senile cataracts of both eyes H25.9 and Constipation, unspecified constipation type K59.[address] 68747- 8547 Jun, Unspecified psychosis 298.9 and 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 17326- 1065 Jun, 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 89329- 0493 May, Dementia 294.20 [place] [id number] [place] [address] 90947- 7859 May, Establishing care with new doctor, encounter for V65.8 ; Ataxia 781.3 ; Horizontal nystagmus 379.56 ; Hypertension 401.9 ; Hyperlipidemia 272.4 and History of TIA (transient ischemic attack) V12.54 [place] [id number] [place] [address] 43671- 4072 May, [address] 61309- 4084 May, IMMUNIZATIONS No Known Immunizations SOCIAL HISTORY Never Assessed REASON FOR VISIT PLAN OF CARE VITAL SIGNS MEDICATIONS Medication Instructions Dosage Frequency Start Date End Date Duration Status Lexapro 10 mg Orally Once a day 1/2 tablet 24h Dec, Active RESULTS No Results PROCEDURES No Known procedures [...] left hip pain, age-indeterminate pubic rami fracture-- [facility] 07/07/16
--- OUTSIDE RECORDS SUMMARY | 2018-05-30 18:49 | XMS REPORT ---
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 41267609 Problem Psychosis, unspecified psychosis type F29 Active 82861833 Problem 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 Active 53842309 Problem Unspecified dementia without behavioral disturbance F03.90 Active 41949978 Problem Hallucinations R44.3 Active 8151165 ALLERGIES No Information ENCOUNTERS Encounter Location Date Diagnosis [place] [id number] [place] [address] 29006- 3079 May, [place] [address] 92051- 6848 Apr, Hallucinations R44.3 ; 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 and Toe pain, right M79.674 [facility] [id number] [place] [address] 42491- 1428 Mar, [facility] [address] 17841- 3169 Mar, Hallucinations R44.3 [place] [id number] [place] [address] 15177- 6824 Mar, [facility] [address] 98249- 9243 Mar, Delusional disorder F22 and Psychosis, unspecified psychosis type F29 [facility] [id number] [place] [address] 89283- 9478 Mar, [facility] [id number] [place] [address] 40877- 1134 Mar, [facility] [id number] [place] [address] 71429- 9497 February, Local infection of the skin and subcutaneous tissue, unspecified L08.9 and Other injury of unspecified body region, initial encounter T14.8XXA [facility] [id number] [place] [address] 50954- 8544 February, [facility] [id number] [place] [address] 51970- 4718 February, [facility] [id number] [place] [address] 61756- 1541 Jan, Hallucinations R44.3 [facility] [id number] [place] [address] 76319- 4349 Dec, Psychosis, unspecified psychosis type F29 [facility] [id number] [place] [address] 21110- 9069 Dec, [facility] [id number] [place] [address] 19879- 9171 Dec, [facility] [id number] [place] [address] 47010- 0902 Nov, Unspecified dementia without behavioral disturbance F03.90 and 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 [facility] [id number] [place] [address] 15564- 0137 Oct, [facility] [id number] [place] [address] 24932- 8708 Oct, [facility] [id number] [place] [address] 99386- 3679 Oct, [facility] [id number] [place] [address] 54448- 2509 Oct, Dementia, unspecified, without behavioral disturbance F03.90 [place] [id number] [place] [address] 63826- 5380 Sep, Medicare annual wellness visit, initial Z00.00 and Encounter for immunization Z23 [place] [id number] [place] [address] 74776- 6091 Aug, 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 and Hallucinations R44.3 [place] [id number] [place] [address] 57733- 0635 Aug, [place] [id number] [place] [address] 46327- 6014 Jul, Encounter for immunization Z23 [place] [id number] [place] [address] 85402- 1050 Jun, Hallucinations R44.3 [place] [id number] [place] [address] 21181- 3945 Jun, Hallucinations R44.3 [place] [id number] [place] [address] 27373- 3521 May, Arthralgia of left knee M25.562 ; Age-related nuclear cataract of both eyes H25.13 and Hallucinations R44.3 [place] [id number] [place] [address] 31985- 4520 May, [place] [id number] [place] [address] 82098- 0920 May, [place] [id number] [place] [address] 79303- 5333 Mar, Hyperlipidemia E78.5 and Hypertension I10 [place] [id number] [place] [address] 76680- 1030 Mar, Hyperlipidemia E78.5 and Hypertension I10 [facility] [id number] [place] [address] 78746- 9668 Mar, [facility] [id number] [place] [address] 86437- 8706 15 Nov, 2016 Hypertension I10 ; 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 ; 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 and 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 [facility] [id number] [place] [address] 88583- 2296 14 Aug, 2016 [facility] [id number] [place] [address] 41872- 3306 Aug, [facility] [id number] [place] [address] 52200- 0553 Aug, Hypertension I10 and 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 [facility] [id number] [place] [address] 41187- 5443 14 Jul, 2016 [facility] [id number] [place] [address] 04000- 6624 26 Jun, 2016 [facility] [id number] [place] [address] 33728- 1456 23 Jun, 2016 [facility] [id number] [place] [address] 17078- 6666 23 Jun, 2016 [facility] [id number] [place] [address] 26526- 0454 20 Jun, 2016 [facility] [id number] [place] [address] 18909- 6246 16 Jun, 2016 [facility] [id number] [place] [address] 38038 -4354 13 May, 2016 Urinary frequency R35.0 and Acute cystitis without hematuria N30.00 [facility] [id number] [place] [address] 29802- 8624 Jan, [facility] [id number] [place] [address] 37196- 4578 Jan, [place] [id number] [place] [address] 58272- 9238 Dec, Hyperlipidemia E78.[address] 92043- 5601 Dec, 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 ; Hyperlipidemia E78.5 and Hypertension I10 [address] 66591- 3625 Nov, [place] [id number] [place] [address] 08541- 6675 Aug, 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 ; Senile cataracts of both eyes H25.9 and Constipation, unspecified constipation type K59.[address] 50817- 3260 Jun, Unspecified psychosis 298.9 and 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 96506- 8476 Jun, 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 24767- 9130 May, Dementia 294.20 [place] [id number] [place] [address] 26906- 3143 May, Establishing care with new doctor, encounter for V65.8 ; Ataxia 781.3 ; Horizontal nystagmus 379.56 ; Hypertension 401.9 ; Hyperlipidemia 272.4 and History of TIA (transient ischemic attack) V12.54 [place] [id number] [place] [address] 26553- 2196 May, [address] 78906- 1320 May, IMMUNIZATIONS No Known Immunizations SOCIAL HISTORY Never Assessed REASON FOR VISIT Neuro Psyche results PLAN OF CARE VITAL SIGNS MEDICATIONS Medication Instructions Dosage Frequency Start Date End Date Duration Status Lexapro 10 mg Orally Once a day 1 tablet 24h Dec, 30 day(s) Active RESULTS No Results PROCEDURES No Known [...] hip pain, age-indeterminate pubic rami fracture-- [facility] 07/07/16
--- OUTSIDE RECORDS SUMMARY | 2018-05-30 18:49 | XMS REPORT ---
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 95462817 Problem Hypertension 401.9 Active 01446868 Problem Hypertension I10 Active 02028550 Problem Unspecified psychosis 298.9 Active 09878445 ALLERGIES Unknown Allergies SOCIAL HISTORY No smoking Hx information available PLAN OF CARE VITAL SIGNS MEDICATIONS Medication Instructions Dosage Frequency Start Date End Date Duration Status Aspirin Low Dose 81 MG Orally Once a day 1 tablet 24h Active Fish Oil 1000 MG Orally Twice a day 1 capsule 12h Active Tramadol HCl 50 mg Orally 3 times a day 1 tablet as needed 8h Active Simvastatin 20 mg Orally (Home Delivery) Once a day 1 tablet in the evening 24h 90 days Active Bystolic 5 MG Orally (Home Delivery) Once a day 1 tablet 24h 90 days Active Celexa 20 mg Orally (Home Delivery) Once a day 1 tablet 24h 90 days Active Lisinopril 40 MG Orally Once a day 1 tablet 24h 90 Active RESULTS No Results PROCEDURES No Known procedures IMMUNIZATIONS No Known Immunizations
--- OUTSIDE RECORDS SUMMARY | 2018-05-30 18:49 | XMS REPORT ---
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 97284200 Problem Psychosis, unspecified psychosis type F29 Active 37172876 Problem 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 Active 17324078 Problem Unspecified dementia without behavioral disturbance F03.90 Active 88468334 Problem Hallucinations R44.3 Active 4246730 ALLERGIES No Information ENCOUNTERS Encounter Location Date Diagnosis [place] [id number] [place] [address] 96180- 3210 May, [facility] [id number] [place] [address] 36807- 5888 Apr, Hallucinations R44.3 ; 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 and Toe pain, right M79.674 [facility] [id number] [place] [address] 22600- 9295 Mar, [facility] [address] 84878- 8599 Mar, Hallucinations R44.3 [facility] [id number] [place] [address] 17959- 3753 Mar, [facility] [address] 77571- 9512 Mar, Delusional disorder F22 and Psychosis, unspecified psychosis type F29 [facility] [address] [address]- 8573 Mar, [facility] [id number] [place] [address] 40872- 8573 Mar, [facility] [id number] [place] [address] 18604- 2925 February, Local infection of the skin and subcutaneous tissue, unspecified L08.9 and Other injury of unspecified body region, initial encounter T14.8XXA [facility] [id number] [place] [address] 73119- 2208 February, [facility] [id number] [place] [address] 93687- 6466 February, [facility] [id number] [place] [address] 22548- 1057 Jan, Hallucinations R44.3 [facility] [id number] [place] [address] 11591- 5239 Dec, Psychosis, unspecified psychosis type F29 [facility] [id number] [place] [address] 18586- 0859 Dec, [facility] [id number] [place] [address] 70754- 8664 Dec, [facility] [id number] [place] [address] 92432- 3914 Nov, Unspecified dementia without behavioral disturbance F03.90 and 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 [facility] [id number] [place] [address] 37505- 9230 Oct, [facility] [address] [address]- 7654 Oct, [facility] [id number] [place] [address] 20386- 5351 Oct, [facility] [address] [place] [address] 47540- 0065 Oct, Dementia, unspecified, without behavioral disturbance F03.90 [place] [id number] [place] [address] 63937- 7980 Sep, Medicare annual wellness visit, initial Z00.00 and Encounter for immunization Z23 [place] [id number] [place] [address] 70513- 3561 Aug, 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 and Hallucinations R44.3 [place] [id number] [place] [address] 96681- 2436 Aug, [place] [id number] [place] [address] 03777- 2864 Jul, Encounter for immunization Z23 [place] [id number] [place] [address] 33738- 2146 Jun, Hallucinations R44.3 [place] [id number] [place] [address] 65822- 9251 Jun, Hallucinations R44.3 [place] [id number] [place] [address] 04032- 6219 May, Arthralgia of left knee M25.562 ; Age-related nuclear cataract of both eyes H25.13 and Hallucinations R44.3 [place] [id number] [place] [address] 43996- 6593 May, [place] [id number] [place] [address] 17227- 7977 May, [place] [id number] [place] [address] 69657- 3726 Mar, Hyperlipidemia E78.5 and Hypertension I10 [place] [id number] [place] [address] 95172- 9146 Mar, Hyperlipidemia E78.5 and Hypertension I10 [place] [id number] [place] [address] 08585- 9166 Mar, [facility] [id number] [place] [address] 74328- 2049 Nov, Hypertension I10 ; 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 ; 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 and 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 [facility] [id number] [place] [address] 52421- 0428 14 Aug, 2016 [facility] [id number] [place] [address] 05385- 4400 Aug, [facility] [id number] [place] [address] 53377- 9918 Aug, Hypertension I10 and 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 [facility] [id number] [place] [address] 77280- 7886 Jul, [facility] [id number] [place] [address] 82177- 1872 26 Jun, 2016 [facility] [id number] [place] [address] 45534- 2864 23 Jun, 2016 [facility] [id number] [place] [address] 77926- 7213 23 Jun, 2016 [facility] [id number] [place] [address] 27549- 8148 20 Jun, 2016 [facility] [id number] [place] [address] 91164- 4234 16 Jun, 2016 [facility] [id number] [place] [address] 56780 -5462 13 May, 2016 Urinary frequency R35.0 and Acute cystitis without hematuria N30.00 [facility] [id number] [place] [address] 32492- 8820 Jan, [facility] [id number] [place] [address] 06328- 3856 Jan, [place] [id number] [place] [address] 79776- 6339 Dec, Hyperlipidemia E78.[address] 43109- 9932 Dec, 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 ; Hyperlipidemia E78.5 and Hypertension I10 [address] 62901- 8388 Nov, [address] 02660- 8613 Aug, 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 ; Senile cataracts of both eyes H25.9 and Constipation, unspecified constipation type K59.[address] 45657- 9770 Jun, Unspecified psychosis 298.9 and 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 60763- 1620 Jun, 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 [place] [id number] [place] [address] 50218- 5774 May, Dementia 294.20 [place] [id number] [place] [address] 34308- 7617 May, Establishing care with new doctor, encounter for V65.8 ; Ataxia 781.3 ; Horizontal nystagmus 379.56 ; Hypertension 401.9 ; Hyperlipidemia 272.4 and History of TIA (transient ischemic attack) V12.54 [place] [id number] [place] [address] 04114- 5205 May, [address] 92113- 0546 May, IMMUNIZATIONS No Known Immunizations SOCIAL HISTORY Never Assessed REASON FOR VISIT Requests return call PLAN OF CARE VITAL SIGNS MEDICATIONS Unknown [...] left hip pain, age-indeterminate pubic rami fracture-- [facility] 07/07/16
--- OUTSIDE RECORDS SUMMARY | 2018-05-30 18:50 | XMS REPORT ---
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
--- OUTSIDE RECORDS SUMMARY | 2018-05-30 18:50 | XMS REPORT ---
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
--- OUTSIDE RECORDS SUMMARY | 2018-05-30 18:50 | XMS REPORT ---
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 68824422 Problem Psychosis, unspecified psychosis type F29 Active 53675936 Problem 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 Active 15095950 Problem Unspecified dementia without behavioral disturbance F03.90 Active 68962913 Problem Hallucinations R44.3 Active 6527910 ALLERGIES No Information ENCOUNTERS Encounter Location Date Diagnosis [facility] [id number] [place] [address] 04372- 5699 Apr, [facility] [id number] [place] [address] 25862- 7755 Mar, Hallucinations R44.3 [facility] [id number] [place] [address] 95978- 6032 14 Mar, 2018 [facility] [id number] [place] [address] 96623- 3988 Mar, Delusional disorder F22 and Psychosis, unspecified psychosis type F29 [facility] [id number] [place] [address] 93706- 7100 Mar, [facility] [address] 60613- 4928 Mar, [facility] [address], [place] [address] February, Local infection of the skin and subcutaneous tissue, unspecified L08.9 and Other injury of unspecified body region, initial encounter T14.8XXA [facility] [address], [place] [address] February, [facility] [id number] [place] [address] 48036- 5301 February, [facility] [address], [place] [address] 96[address] Jan, Hallucinations R44.3 [facility] [id number] [place] [address] 28154- 0636 Dec, Psychosis, unspecified psychosis type F29 [facility] [address], [place] [address] 7608 Dec, [facility] [address], [place] [address] 9[address] Dec, [facility] [id number] [address] Nov, Unspecified dementia without behavioral disturbance F03.90 and 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 [facility] [address], [place] [address] 38[address] Oct, [facility] [address] [place] [address] 08[address] Oct, [facility] [address], [place] [address] 7930 Oct, [facility] [address], [place] [address] 5839 Oct, Dementia, unspecified, without behavioral disturbance F03.90 [facility] [address], [place] [address] Sep, Medicare annual wellness visit, initial Z00.00 and Encounter for immunization Z23 [facility] [id number] [place] [address] 06463- 2075 Aug, 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 and Hallucinations R44.3 [facility] [id number] [place] [address] 63269- 5609 Aug, [facility] [address] 93994- 6529 Jul, Encounter for immunization Z23 [facility] [id number] [place] [address] 87446- 6288 Jun, Hallucinations R44.3 [facility] [id number] [place] [address] 93849- 7317 05 Jun, 2017 Hallucinations R44.3 [facility] [id number] [place] [address] 31703- 3496 May, Arthralgia of left knee M25.562 ; Age-related nuclear cataract of both eyes H25.13 and Hallucinations R44.3 [facility] [id number] [place] [address] 01430- 3623 May, [facility] [id number] [place] [address] 64669- 7026 May, [facility] [id number] [place] [address] 41900- 8060 Mar, Hyperlipidemia E78.5 and Hypertension I10 [facility] [id number] [place] [address] 00182- 9384 Mar, Hyperlipidemia E78.5 and Hypertension I10 [facility] [id number] [place] [address] 25334- 5132 Mar, [facility] [id number] [place] [address] 11249- 2522 15 Nov, 2016 Hypertension I10 ; 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 ; 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 and 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 [facility] [id number] [place] [address] 22222- 6339 14 Aug, 2016 [facility] [id number] [place] [address] 70811- 8209 08 Aug, 2016 [facility] [id number] [place] [address] 96838- 6722 07 Aug, 2016 Hypertension I10 and 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 [facility] [id number] [place] [address] 97042- 6441 14 Jul, 2016 [facility] [id number] [place] [address] 45326- 9282 26 Jun, 2016 [facility] [id number] [place] [address] 29099- 7922 23 Jun, 2016 [facility] [id number] [place] [address] 65589- 5443 23 Jun, 2016 [facility] [id number] [place] [address] 42057- 8128 20 Jun, 2016 [facility] [id number] [place] [address] 52341- 8001 16 Jun, 2016 [facility]ALK [facility] [id number] [place] [address] 70418 -9256 13 May, 2016 Urinary frequency R35.0 and Acute cystitis without hematuria N30.00 [facility] [id number] [place] [address] 46161- 0344 Jan, [facility] [id number] [place] [address] 97852- 4161 Jan, [facility] [id number] [place] [address] 49644- 0229 Dec, Hyperlipidemia E78.5 [facility] [id number] [place] [address] 90505- 6754 Dec, 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 ; Hyperlipidemia E78.5 and Hypertension I10 [id number] [place] [address] 02236- 6785 Nov, [address] 31816- 4368 Aug, 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 ; Senile cataracts of both eyes H25.9 and Constipation, unspecified constipation type K59.[address] 39644- 3944 Jun, Unspecified psychosis 298.9 and 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 30549- 3762 Jun, 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 38865- 4180 May, Dementia 294.[address] 86058- 3421 May, Establishing care with new doctor, encounter for V65.8 ; Ataxia 781.3 ; Horizontal nystagmus 379.56 ; Hypertension 401.9 ; Hyperlipidemia 272.4 and History of TIA (transient ischemic attack) V12.54 [id number] [place] [address] 18107- 8571 May, [id number] [place] [address] 36195- 0227 May, IMMUNIZATIONS No Known Immunizations SOCIAL HISTORY Never Assessed REASON FOR VISIT medication PLAN OF CARE VITAL SIGNS MEDICATIONS Unknown [...] left hip pain, age-indeterminate pubic rami fracture-- [facility] 07/07/16
--- OUTSIDE RECORDS SUMMARY | 2018-05-30 18:50 | XMS REPORT ---
Author Author TRISHA SERRANO Organization [employer] Address Unknown Phone Unavailable Care Team Providers Care Field Artillery Operations Specialist Name Role Phone TRISHA SERRANO CP Unavailable Allergies, Adverse Reactions, Alerts Substance Reaction Event Type N.K.D.A. 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 Medications Medication Code System Code Instructions Start Date End Date Status Dosage Colace [facility] [address]-69 100 MG Orally (Home Delivery) Once a day may repeat if needed 1 capsule as needed for constipation Fish Oil [facility] [address]-25 1000 MG Orally Twice a day 1 capsule Celexa [facility] [address]-91 20 mg Orally (Home Delivery) Once a day 1 tablet Carafate [facility] [address]-75 1 GM Orally before meals and bedtime Aug 04, 2016 1 tablet on an empty stomach Aspirin Low Dose [facility] [address]-91 81 MG Orally Once a day 1 tablet Bystolic [facility] [address]-18 5 MG Orally (Home Delivery) Once a day 1 tablet Simvastatin [facility] [address]-31 20 mg Orally (Home Delivery) Once a day 1 tablet in the evening Protonix [facility] [address]-73 40 mg Orally Once a day Aug 04, 2016 1 tablet Procedures Procedure Coding System Code Date Office Visit, Est Pt., Level 3 CPT-4 76799 Aug 28, 2016 [facility] VISIT ESTABLISHED PATIENT CPT-4 G0467 Aug 28, 2016 Vital Signs Date/Time: Aug 28, 2016 Cardiac Monitoring Heart Rate 56 bpm Weight 117.5 lbs Height 64 in BMI 20.17 Index Blood Pressure Diastolic 68 mmHg Blood Pressure Systolic 129 mmHg Results No Known Results Summary Purpose [employer] Submission
--- OUTSIDE RECORDS SUMMARY | 2018-05-30 18:50 | XMS REPORT ---
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 84607694 Problem 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 Active 46912640 Problem 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 Active 133741213 Problem Hallucinations R44.3 Active 2131569 Problem Psychosis, unspecified psychosis type F29 Active 11063510 ALLERGIES No Known Allergies ENCOUNTERS Encounter Location Date Diagnosis [id number] [place] [address] 54859- 6047 Jan, Hallucinations R44.3 [facility] [id number] [place] [address] 68635- 0020 Dec, Psychosis, unspecified psychosis type F29 [facility] [id number] [place] [address] 39072- 9050 15 Dec, 2017 [facility] [id number] [place] [address] 28585- 0483 Dec, [facility] [id number] [place] [address] 28999- 4367 Nov, Unspecified dementia without behavioral disturbance F03.90 and 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 [facility] [id number] [place] [address] 74898- 0387 Oct, [facility] [id number] [place] [address] 41729- 2786 Oct, [id number] [place] [address] 87741- 3812 Oct, [id number] [place] [address] 83186- 5883 Oct, Dementia, unspecified, without behavioral disturbance F03.90 [address] [facility] [id number] [place] [address] 77867- 0307 Sep, Medicare annual wellness visit, initial Z00.00 and Encounter for immunization Z23 [address] [address] 43989- 4366 Aug, 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 and Hallucinations R44.3 [address] 42083- 0711 Aug, [address] [place] [id number] [place] [address] 95839- 4765 Jul, Encounter for immunization Z23 [address] 67977- 8419 Jun, Hallucinations R44.3 [address] 71732- 3851 Jun, Hallucinations R44.3 [address] [facility] [id number] [place] [address] 27013- 2484 May, Arthralgia of left knee M25.562 ; Age-related nuclear cataract of both eyes H25.13 and Hallucinations R44.3 [id number] [place] [address] 71043- 1457 May, [id number] [place] [address] 28131- 6752 May, [address] 52542- 1936 Mar, Hyperlipidemia E78.5 and Hypertension I10 [facility] [id number] [place] [address] 30734- 4709 Mar, Hyperlipidemia E78.5 and Hypertension I10 [facility] [id number] [place] [address] 94433- 3788 Mar, [facility] [address] 88348- 6463 Nov, Hypertension I10 ; 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 ; 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 and 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 [facility] [address] 20910- 6200 14 Aug, 2016 [facility] [id number] [place] [address] 75307- 1399 Aug, [facility] [address] 63494- 9287 Aug, Hypertension I10 and 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 [facility] [id number] [place] [address] 32101- 7446 Jul, [facility] [id number] [place] [address] 88010- 3590 26 Jun, 2016 [facility] [id number] [place] [address] 92914- 1341 23 Jun, 2016 [facility] [id number] [place] [address] 11535- 7749 23 Jun, 2016 [facility] [id number] [place] [address] 27772- 8941 20 Jun, 2016 [facility] [id number] [place] [address] 33356- 9375 16 Jun, 2016 [facility] [id number] [place] [address] 28071 -9611 13 May, 2016 Urinary frequency R35.0 and Acute cystitis without hematuria N30.00 [address] [id number] [place] [address] 05828- 7955 Jan, [address] [id number] [place] [address] 67736- 3874 Jan, [address] [id number] [place] [address] 74360- 8698 Dec, Hyperlipidemia E78.5 [address] [address] 26544- 2558 Dec, 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 ; Hyperlipidemia E78.5 and Hypertension I10 [address] [address] 05901- 3286 Nov, [place] [id number] [place] [address] 13833- 2045 Aug, 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 ; Senile cataracts of both eyes H25.9 and Constipation, unspecified constipation type K59.00 [place] [id number] [place] [address] 65911- 8650 Jun, Unspecified psychosis 298.9 and 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 [place] [id number] [place] [address] 54900- 1599 Jun, 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 [place] [id number] [place] [address] 41313- 9362 May, Dementia 294.20 [place] [id number] [place] [address] 39052- 8001 May, Establishing care with new doctor, encounter for V65.8 ; Ataxia 781.3 ; Horizontal nystagmus 379.56 ; Hypertension 401.9 ; Hyperlipidemia 272.4 and History of TIA (transient ischemic attack) V12.54 [place] [id number] [place] [address] 70688- 2900 May, [place] [address] 60839- 3219 May, IMMUNIZATIONS No Known Immunizations SOCIAL HISTORY Never Assessed REASON FOR VISIT general check-up, PT has no concerns- Jovana DYE, pt is being rude and hateful to her daughter, states it has to do with her "ghost issue". Daughter does not want her mother to know that she is has told you this as she is already mad at her. Butch PLAN OF CARE Activity Details Follow Up prn Reason: VITAL SIGNS Height 64 in 2017-07-02 Weight 115.6 lbs 2017-07-02 Temperature 98.1 degrees Fahrenheit 2017-07-02 Heart Rate 84 bpm 2017-07-02 Respiratory Rate 18 2017-07-02 BMI 19.84 kg/m2 2017-07-02 Blood pressure systolic 124 mmHg 2017-07-02 Blood pressure diastolic 72 mmHg 2017-07-02 MEDICATIONS Medication Instructions Dosage Frequency Start Date End Date Duration Status Aspirin Low Dose 81 MG Orally Once a day 1 tablet 24h Active Fish Oil 1000 MG Orally Twice a day 1 capsule 12h Active RESULTS No Results PROCEDURES Procedure Date Ordered Result Body Site [facility] VISIT ESTABLISHED PATIENT Jul 02, 2017 INSTRUCTIONS MEDICATIONS ADMINISTERED No Known Medications [...] left hip pain, age-indeterminate pubic rami fracture-- [facility] 07/07/16
--- OUTSIDE RECORDS SUMMARY | 2018-05-30 18:50 | XMS REPORT ---
Author Author ZAKI BELLAMY [facility] [employer] Address Unknown Phone Unavailable Care Team Providers Care Abstract Checker Name Role Phone ZAKI BELLAMY CP Unavailable Allergies No Known Allergies Problems Problem Type Condition ICD-9 Code Onset Dates Condition Status Problem Hyperlipidemia 272.4 Active Problem Hypertension 401.9 Active Medications No Known Medications Results No Known Results Summary Purpose [employer]ClinicalWorks Submission
--- OUTSIDE RECORDS SUMMARY | 2018-05-30 18:50 | XMS REPORT ---
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 47331131 Problem 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 Active 93984070 Problem 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 Active 282450133 Problem Hallucinations R44.3 Active 5252089 Problem Psychosis, unspecified psychosis type F29 Active 85586350 ALLERGIES No Known Allergies ENCOUNTERS Encounter Location Date Diagnosis [place] [id number] [place] [address] 64761- 9336 Apr, [place] [id number] [place] [address] 14279- 6531 February, Local infection of the skin and subcutaneous tissue, unspecified L08.9 and Other injury of unspecified body region, initial encounter T14.8XXA [facility] [address] [place] [address] 72411- 0250 February, [facility] [id number] [place] [address] 00252- 1640 February, [facility] [id number] [place] [address] 50570- 3317 Jan, Hallucinations R44.3 [facility] [id number] [place] [address] 73533- 0334 Dec, Psychosis, unspecified psychosis type F29 [facility] [address] [address] 3036 15 Dec, 2017 [facility] [id number] [place] [address] 28389- 3507 Dec, [facility] [id number] [place] [address] 54509- 8700 Nov, Unspecified dementia without behavioral disturbance F03.90 and 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 [facility] [id number] [place] [address] 15453- 1060 Oct, [facility] [id number] [place] [address] 68579- 5163 Oct, [facility] [id number] [place] [address] 89377- 5904 Oct, [facility] [id number] [place] [address] 70912- 9610 Oct, Dementia, unspecified, without behavioral disturbance F03.90 [place] [id number] [place] [address] 98551- 1293 Sep, Medicare annual wellness visit, initial Z00.00 and Encounter for immunization Z23 [place] [id number] [place] [address] 14302- 7363 Aug, 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 and Hallucinations R44.3 [facility] [address] [address]- 0741 Aug, [facility] [id number] [place] [address] 04115- 7195 Jul, Encounter for immunization Z23 [facility] [id number] [place] [address] 32270- 4839 Jun, Hallucinations R44.3 [facility] [id number] [place] [address] 56466- 3835 Jun, Hallucinations R44.3 [facility] [id number] [place] [address] 75810- 2312 May, Arthralgia of left knee M25.562 ; Age-related nuclear cataract of both eyes H25.13 and Hallucinations R44.3 [facility] [id number] [place] [address] 44434- 3321 May, [facility] [address] 62230- 4895 May, [facility] [id number] [place] [address] 04976- 7019 Mar, Hyperlipidemia E78.5 and Hypertension I10 [place] [id number] [place] [address] 96090- 4458 Mar, Hyperlipidemia E78.5 and Hypertension I10 [place] [address] 77488- 6974 Mar, [facility] [id number] [place] [address] 49665- 8907 Nov, Hypertension I10 ; 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 ; 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 and 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 [place] [id number] [place] [address] 40763- 7017 14 Aug, 2016 [facility] [id number] [place] [address] 12724- 8447 Aug, [facility] [id number] [place] [address] 89022- 4727 Aug, Hypertension I10 and 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 [place] [address] 68737- 2843 Jul, [facility] [id number] [place] [address] 45038- 7886 Jun, [facility] [address] [place] [address]- 6876 Jun, [facility] [id number] [place] [address] 60096- 2540 Jun, [facility] [id number] [place] [address] 85051- 9439 20 Jun, 2016 [facility] [id number] [place] [address] 36312- 3138 16 Jun, 2016 [facility] WALK IN [facility] [id number] [place] [address] 12346 -0323 May, Urinary frequency R35.0 and Acute cystitis without hematuria N30.00 [facility] [id number] [place] [address] 55489- 6452 Jan, [facility] [id number] [place] [address] 87750- 0070 Jan, [facility] [id number] [place] [address] 67365- 8736 Dec, Hyperlipidemia E78.5 [facility] [id number] [place] [address] 39047- 0556 Dec, 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 ; Hyperlipidemia E78.5 and Hypertension I10 [facility] [id number] [place] [address] 66665- 4036 Nov, [facility] [id number] [place] [address] 49261- 1166 Aug, 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 ; Senile cataracts of both eyes H25.9 and Constipation, unspecified constipation type K59.00 [facility] [id number] [place] [address] 56766- 0193 Jun, Unspecified psychosis 298.9 and 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 [facility] [id number] [place] [address] 17386- 6851 Jun, 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 [facility] [id number] [address]- 5278 May, Dementia 294.20 [place] [address] [facility] [id number] [address]- 7515 May, Establishing care with new doctor, encounter for V65.8 ; Ataxia 781.3 ; Horizontal nystagmus 379.56 ; Hypertension 401.9 ; Hyperlipidemia 272.4 and History of TIA (transient ischemic attack) V12.54 [place] [address] [facility] [id number] [address]- 1501 May, [place] [address] [facility] [id number] [address]- 8358 May, IMMUNIZATIONS Vaccine Route Administration Date Status PCV 13 IM Intramuscular Sep 26, 2017 Administered SOCIAL HISTORY Never Assessed REASON FOR VISIT medicare physical, PT [facility] Activity Details Follow Up annually for preventive care, sooner for chronic health maintenance , prn Reason: VITAL SIGNS Height 64 in 2017-09-26 Weight 114.6 lbs 2017-09-26 Temperature 98.0 degrees Fahrenheit 2017-09-26 Heart Rate 76 bpm 2017-09-26 Respiratory Rate 18 2017-09-26 BMI 19.67 kg/m2 2017-09-26 Blood pressure systolic 120 mmHg 2017-09-26 Blood pressure diastolic 76 mmHg 2017-09-26 MEDICATIONS Medication Instructions Dosage Frequency Start Date End Date Duration Status Fish Oil 1000 MG Orally Twice a day 1 capsule 12h Active Aspirin Low Dose 81 MG Orally Once a day 1 tablet 24h Active Celexa 20 MG Orally Once a day 1 tablet 24h 90 days Not-Taking RESULTS No Results PROCEDURES Procedure Date Ordered Result Body Site ANNUAL KASSIENES VST; PERSNL PPS INIT Sep 26, 2017 FALL RISK ASSESSMENT DOCD Sep 26, 2017 PCV 13 Sep 26, 2017 PT TOBACCO SCREEN RCVD TLK Sep 26, 2017 SINGLE IMMUNIZATION ADMIN Sep 26, 2017 INSTRUCTIONS MEDICATIONS ADMINISTERED No Known Medications [...] left hip pain, age-indeterminate pubic rami fracture-- [facility] 07/07/16
--- OUTSIDE RECORDS SUMMARY | 2018-05-30 18:50 | XMS REPORT ---
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 80126692 Problem 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 Active 86691079 Problem 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 Active 283165949 Problem Hallucinations R44.3 Active 9512187 Problem Psychosis, unspecified psychosis type F29 Active 71025280 ALLERGIES No Known Allergies ENCOUNTERS Encounter Location Date Diagnosis [place] [id number] [place] [address] 88041- 6193 Apr, [place] [id number] [place] [address] 48027- 6298 February, Local infection of the skin and subcutaneous tissue, unspecified L08.9 and Other injury of unspecified body region, initial encounter T14.8XXA [facility] [address] [place] [address] 63466- 5156 February, [facility] [id number] [place] [address] 10755- 4133 February, [facility] [id number] [place] [address] 24867- 0466 Jan, Hallucinations R44.3 [facility] [id number] [place] [address] 97672- 7099 Dec, Psychosis, unspecified psychosis type F29 [facility] [address], [place] [address]- 1632 15 Dec, 2017 [facility] [id number] [place] [address] 49531- 5504 Dec, [facility] [id number] [place] [address] 26407- 7899 Nov, Unspecified dementia without behavioral disturbance F03.90 and 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 [facility] [id number] [place] [address] 87800- 1801 Oct, [facility] [id number] [place] [address] 34005- 1941 Oct, [facility] [id number] [place] [address] 18694- 1864 Oct, [facility] [id number] [place] [address] 02293- 7447 Oct, Dementia, unspecified, without behavioral disturbance F03.90 [place] [id number] [place] [address] 43214- 5832 Sep, Medicare annual wellness visit, initial Z00.00 and Encounter for immunization Z23 [place] [id number] [place] [address] 71945- 5396 Aug, 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 and Hallucinations R44.3 [facility] [address], [place] [address]- 2443 Aug, [facility] [id number] [place] [address] 02184- 6316 Jul, Encounter for immunization Z23 [facility] [id number] [place] [address] 88735- 1387 Jun, Hallucinations R44.3 [facility] [id number] [place] [address] 52969- 7515 Jun, Hallucinations R44.3 [facility] [id number] [place] [address] 29576- 1615 May, Arthralgia of left knee M25.562 ; Age-related nuclear cataract of both eyes H25.13 and Hallucinations R44.3 [facility] [id number] [place] [address] 47310- 3287 May, [facility] [address] 37487- 2005 May, [facility] [id number] [place] [address] 14563- 1000 Mar, Hyperlipidemia E78.5 and Hypertension I10 [place] [id number] [place] [address] 16601- 0888 Mar, Hyperlipidemia E78.5 and Hypertension I10 [place] [address] 41743- 6881 Mar, [facility] [id number] [place] [address] 69058- 9552 Nov, Hypertension I10 ; 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 ; 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 and 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 [place] [id number] [place] [address] 17273- 8786 14 Aug, 2016 [facility] [id number] [place] [address] 28162- 9731 Aug, [facility] [id number] [place] [address] 64184- 6035 Aug, Hypertension I10 and 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 [place] [address] 71326- 3975 Jul, [facility] [id number] [place] [address] 18028- 4902 Jun, [facility] [address] [place] [address]- 2340 Jun, [facility] [id number] [place] [address] 36170- 9349 Jun, [facility] [id number] [place] [address] 93791- 0290 20 Jun, 2016 [facility] [id number] [place] [address] 91003- 7868 16 Jun, 2016 [facility] WALK IN [facility] [id number] [place] [address] 97839 -1361 May, Urinary frequency R35.0 and Acute cystitis without hematuria N30.00 [facility] [id number] [place] [address] 68823- 5782 Jan, [facility] [id number] [place] [address] 26581- 5638 Jan, [facility] [id number] [place] [address] 74973- 7091 Dec, Hyperlipidemia E78.5 [facility] [id number] [place] [address] 98083- 4723 Dec, 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 ; Hyperlipidemia E78.5 and Hypertension I10 [facility] [id number] [place] [address] 37366- 7489 Nov, [facility] [id number] [place] [address] 53338- 7481 Aug, 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 ; Senile cataracts of both eyes H25.9 and Constipation, unspecified constipation type K59.00 [facility] [id number] [place] [address] 86044- 7988 Jun, Unspecified psychosis 298.9 and 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 [facility] [id number] [place] [address] 12169- 5728 Jun, 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 [facility] [id number] [address]- 9527 May, Dementia 294.20 [place] [address] [facility] [id number] [address]- 5803 May, Establishing care with new doctor, encounter for V65.8 ; Ataxia 781.3 ; Horizontal nystagmus 379.56 ; Hypertension 401.9 ; Hyperlipidemia 272.4 and History of TIA (transient ischemic attack) V12.54 [place] [address] [place] [id number] [address]- 7064 May, [place] [address] [facility] [id number], [place] [address]- 2007 May, IMMUNIZATIONS No Known Immunizations SOCIAL HISTORY Never Assessed REASON FOR VISIT Hallucination f/u--H Jaden [facility] PLAN OF CARE Activity Details Follow Up 6 Months Reason:hallucinations VITAL SIGNS Height 64 in 2017-09-17 Weight 115.3 lbs 2017-09-17 Temperature 97.7 degrees Fahrenheit 2017-09-17 Heart Rate 66 bpm 2017-09-17 Respiratory Rate 18 2017-09-17 BMI 19.79 kg/m2 2017-09-17 Blood pressure systolic 132 mmHg 2017-09-17 Blood pressure diastolic 86 mmHg 2017-09-17 MEDICATIONS Medication Instructions Dosage Frequency Start Date End Date Duration Status Fish Oil 1000 MG Orally Twice a day 1 capsule 12h Active Celexa 20 MG Orally Once a day 1 tablet 24h 90 days Not-Taking Aspirin Low Dose 81 MG Orally Once a day 1 tablet 24h Active RESULTS No Results PROCEDURES Procedure Date Ordered Result Body Site [facility] VISIT ESTABLISHED PATIENT Sep 17, 2017 INSTRUCTIONS MEDICATIONS ADMINISTERED No Known Medications [...]
--- OUTSIDE RECORDS SUMMARY | 2018-05-30 18:50 | XMS REPORT ---
Author Author TRISHA SERRANO [facility] e[employer] Address Unknown Phone Unavailable Care Team Providers Care Plant Operator Helper Name Role Phone TRISHA SERRANO CP Unavailable Allergies, Adverse Reactions, Alerts Substance Reaction Event Type N.K.D.A. 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 Medications Medication Code System Code Instructions Start Date End Date Status Dosage Simvastatin [facility] [address]-37 20 MG Orally Once a day 1 tablet in the evening Bystolic [facility] [address]-34 5 MG Orally Once a day 1 tablet Coenzyme Q10 [facility] [address]-62 10 MG Orally Once a day 1 capsule with a meal Magnesium Oxide [facility] [address]-68 400 MG Orally Once a day not defined Celexa [facility] [address]-22 20 MG Orally Once a day 1 tablet Fish Oil [facility] [address]-16 1000 MG Orally Twice a day 1 capsule Tylenol [facility] [address]-07 325 MG Orally 2 times a day 1 tablet as needed Lisinopril [facility] [address]-56 40 MG Orally Once a day 1 tablet Ibuprofen [facility] [address]-71 200 MG Orally Once a day 1 tablet as needed Advil [facility] [address]-41 200 MG Orally every 6 hrs 1 tablet as needed Aspirin Low Dose [facility] [address]-77 81 MG Orally Once a day 1 tablet Procedures Procedure Coding System Code Date ETIENNE LAURA* CPT-4 96997 Jun 23, 2015 Vital Signs Date/Time: Jun 23, 2015 Temperature 97.8 F Weight 117 lbs Height 64 in BMI 20.08 Index Blood Pressure Diastolic 74 mmHg Blood Pressure Systolic 130 mmHg Cardiac Monitoring Heart Rate 64 bpm Results No Known Results Summary Purpose eClinicalWorks Submission
--- OUTSIDE RECORDS SUMMARY | 2018-05-30 18:51 | XMS REPORT ---
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
--- OUTSIDE RECORDS SUMMARY | 2018-05-30 18:51 | XMS REPORT ---
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 12863886 Problem 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 Active 67266018 Problem 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 Active 809668090 Problem Hallucinations R44.3 Active 6501130 Problem Psychosis, unspecified psychosis type F29 Active 36053626 ALLERGIES No Information ENCOUNTERS Encounter Location Date Diagnosis [facility] [address] [address] Apr, [facility] [id number] [place] [address] 06833- 6211 Mar, [facility] [id number] [place] [address] 94336- 4481 Mar, [facility] [id number] [place] [address] 05986- 1789 Mar, [facility] [address] [address]- [address] February, Local infection of the skin and subcutaneous tissue, unspecified L08.9 and Other injury of unspecified body region, initial encounter T14.8XXA [facility] [address] 40[address]- 2331 February, [facility] [id number] [place] [address] 28934- 2568 February, [facility] [id number] [place] [address] 40258- 1599 Jan, Hallucinations R44.3 [facility] [id number] [place] [address] 40070- 7739 Dec, Psychosis, unspecified psychosis type F29 [facility] [id number] [place] [address] 72283- 2194 Dec, [facility] [id number] [place] [address] 00873- 6573 Dec, [facility] [id number] [place] [address] 16111- 4304 Nov, Unspecified dementia without behavioral disturbance F03.90 and 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 [facility] [id number] [place] [address] 84182- 5344 Oct, [facility] [id number] [place] [address] 05302- 4307 Oct, [facility] [id number] [place] [address] 46880- 4411 Oct, [facility] [id number] [place] [address] 45771- 1440 Oct, Dementia, unspecified, without behavioral disturbance F03.90 [facility] [id number] [place] [address] 20403- 9577 Sep, Medicare annual wellness visit, initial Z00.00 and Encounter for immunization Z23 [facility] [id number] [place] [address] 02860- 4003 Aug, 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 and Hallucinations R44.3 [facility] [id number] [place] [address] 59626- 3837 Aug, [place] [address] 28[address]- 6020 12 Jul, 2017 Encounter for immunization Z23 [place] [address] 49766- 8795 11 Jun, 2017 Hallucinations R44.3 [place] [address] 41511- 9943 05 Jun, 2017 Hallucinations R44.3 [place] [address] 92932- 0571 30 May, 2017 Arthralgia of left knee M25.562 ; Age-related nuclear cataract of both eyes H25.13 and Hallucinations R44.3 [place] [address] 72558- 5088 24 May, [address] 36550- 4918 May, [address] 74925- 0346 Mar, Hyperlipidemia E78.5 and Hypertension I10 [address] 59992- 2277 Mar, Hyperlipidemia E78.5 and Hypertension I10 [place] [address] 67639- 7955 Mar, [address] 50039- 5383 15 Nov, 2016 Hypertension I10 ; 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 ; 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 and 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 42423- 8617 Aug, [place] [address] 92226- 1571 08 Aug, 2016 [place] [address] 63817- 9072 07 Aug, 2016 Hypertension I10 and 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 [facility] [id number] [place] [address] 93902- 4874 14 Jul, 2016 [facility] [id number] [place] [address] 73387- 2325 26 Jun, 2016 [facility] [id number] [place] [address] 41800- 5324 23 Jun, 2016 [facility] [address] 55832- 7143 23 Jun, 2016 [facility] [id number] [place] [address] 59383- 6446 20 Jun, 2016 [facility] [id number] [place] [address] 86956- 3768 16 Jun, 2016 [facility] [address] 83100 -8535 13 May, 2016 Urinary frequency R35.0 and Acute cystitis without hematuria N30.00 [facility] [id number] [place] [address] 18075- 9755 Jan, [facility] [id number] [place] [address] 49254- 1671 Jan, [facility] [id number] [place] [address] 66212- 4822 Dec, Hyperlipidemia E78.5 [facility] [id number] [place] [address] 16926- 2644 Dec, 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 ; Hyperlipidemia E78.5 and Hypertension I10 [facility] [address] 52765- 0008 Nov, [facility] [id number] [place] [address] 49108- 7673 Aug, 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 ; Senile cataracts of both eyes H25.9 and Constipation, unspecified constipation type K59.00 [place] [address] [id number] [address] Jun, Unspecified psychosis 298.9 and 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 [place] [address] [place] [address] 29788- 1483 Jun, 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 [place] [address] [place] [address] 68343- 1440 May, Dementia 294.20 [place] [id number] [place] [address] 61022- 0311 May, Establishing care with new doctor, encounter for V65.8 ; Ataxia 781.3 ; Horizontal nystagmus 379.56 ; Hypertension 401.9 ; Hyperlipidemia 272.4 and History of TIA (transient ischemic attack) V12.54 [address] [place] [address] 74287- 8139 May, [place] [address] [place] [address] 19754- 8761 May, IMMUNIZATIONS No Known Immunizations SOCIAL HISTORY Never Assessed REASON FOR VISIT Referral PLAN OF CARE VITAL SIGNS MEDICATIONS Unknown [...] left hip pain, age-indeterminate pubic rami fracture-- [facility] 07/07/16
--- OUTSIDE RECORDS SUMMARY | 2018-05-30 18:51 | XMS REPORT ---
Author Author ADALI Thayer 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 20467387 Problem Psychosis, unspecified psychosis type F29 Active 86782879 Problem 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 Active 14749148 Problem Unspecified dementia without behavioral disturbance F03.90 Active 71531547 Problem Hallucinations R44.3 Active 9099547 ALLERGIES No Information ENCOUNTERS Encounter Location Date Diagnosis [facility] [address] [place] [address] Apr, [facility] [address] [place] [address] 0358 Mar, [facility] [id number] [place] [address] 78087- 6001 13 Mar, 2018 Delusional disorder F22 and Psychosis, unspecified psychosis type F29 [facility] [address] [place] [address] 42210- 0933 Mar, [facility] [id number] [place] [address] 34572- 7713 Mar, [facility] [address] [place] [address] 26973- 4462 February, Local infection of the skin and subcutaneous tissue, unspecified L08.9 and Other injury of unspecified body region, initial encounter T14.8XXA [place] [id number] [place] [address] 04744- 2602 February, [facility] [id number] [place] [address] 00485- 2429 February, [place] [id number] [place] [address] 62888- 5697 Jan, Hallucinations R44.3 [place] [id number] [place] [address] 25464- 1905 Dec, Psychosis, unspecified psychosis type F29 [place] [id number] [place] [address] 15139- 0983 Dec, [place] [id number] [place] [address] 59648- 1737 Dec, [place] [id number] [place] [address] 92090- 1564 Nov, Unspecified dementia without behavioral disturbance F03.90 and 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 [place] [id number] [place] [address] 73953- 8965 Oct, [place] [id number] [place] [address] 40750- 0972 Oct, [place] [id number] [place] [address] 97451- 4404 Oct, [place] [id number] [place] [address] 76143- 9200 Oct, Dementia, unspecified, without behavioral disturbance F03.90 [place] [id number] [place] [address] 65782- 4178 06 Sep, 2017 Medicare annual wellness visit, initial Z00.00 and Encounter for immunization Z23 [place] [id number] [place] [address] 81466- 5395 Aug, 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 and Hallucinations R44.3 [place] [id number] [place] [address] 85857- 8310 Aug, [facility] [address] 27183- 4800 Jul, Encounter for immunization Z23 [place] [address] 32998- 7040 11 Jun, 2017 Hallucinations R44.3 [place] [address] 88374- 0068 05 Jun, 2017 Hallucinations R44.3 [place] [address] 57471- 7237 May, Arthralgia of left knee M25.562 ; Age-related nuclear cataract of both eyes H25.13 and Hallucinations R44.3 [place] [address] 79270- 7112 May, [place] [address] 24341- 9328 May, [place] [address] 15455- 7567 Mar, Hyperlipidemia E78.5 and Hypertension I10 [place] [id number] [place] [address] 06965- 6066 Mar, Hyperlipidemia E78.5 and Hypertension I10 [place] [id number] [place] [address] 98838- 7141 Mar, [place] [address] 13543- 7591 Nov, Hypertension I10 ; 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 ; 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 and 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 [place] [address] 88328- 8430 Aug, [facility] [id number] [place] [address] 58270- 5075 08 Aug, 2016 [facility] [id number] [place] [address] 93124- 1218 07 Aug, 2016 Hypertension I10 and 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 [facility] [id number] [place] [address] 50961- 4775 14 Jul, 2016 [facility] [id number] [place] [address] 64826- 2186 26 Jun, 2016 [facility] [id number] [place] [address] 13719- 4063 23 Jun, 2016 [facility] [id number] [place] [address] 43609- 6242 23 Jun, 2016 [facility] [id number] [place] [address] 00438- 7896 20 Jun, 2016 [facility] [id number] [place] [address] 02357- 0899 16 Jun, 2016 [facility] [id number] [place] [address] 36593 -1600 May, Urinary frequency R35.0 and Acute cystitis without hematuria N30.00 [facility] [id number] [place] [address] 38192- 3615 Jan, [facility] [id number] [place] [address] 85359- 3855 Jan, [facility] [id number] [place] [address] 42275- 0694 Dec, Hyperlipidemia E78.5 [facility] [id number] [place] [address] 98671- 5227 Dec, 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 ; Hyperlipidemia E78.5 and Hypertension I10 [facility] [id number] [place] [address] 13038- 8434 Nov, [address] [place] [address] 75372- 7698 Aug, 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 ; Senile cataracts of both eyes H25.9 and Constipation, unspecified constipation type K59.00 [place] [id number] [place] [address] 04545- 7140 Jun, Unspecified psychosis 298.9 and 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 06179- 5466 Jun, 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 64218- 6868 May, Dementia 294.20 [place] [id number] [place] [address] 30774- 3420 May, Establishing care with new doctor, encounter for V65.8 ; Ataxia 781.3 ; Horizontal nystagmus 379.56 ; Hypertension 401.9 ; Hyperlipidemia 272.4 and History of TIA (transient ischemic attack) V12.54 [place] [id number] [place] [address] 42981- 4079 May, [place] [id number] [place] [address] 94467- 8263 May, IMMUNIZATIONS No Known Immunizations SOCIAL HISTORY Never Assessed REASON FOR VISIT Neuropsych Testing PLAN OF CARE Activity Details Follow Up Next available Reason: VITAL SIGNS MEDICATIONS Medication Instructions Dosage Frequency Start Date End Date Duration Status Celexa 20 MG Orally Once a day 1 tablet 24h 90 days Unknown Fish Oil 1000 MG Orally Twice a day 1 capsule 12h Unknown Aspirin Low Dose 81 MG Orally Once a day 1 tablet 24h Unknown RESULTS No Results PROCEDURES Procedure Date Ordered Result Body Site [facility] VISIT ESTABLISHED PATIENT Nov 01, 2017 NEUROPSYCH TST BY PSYCH/PHYS Nov 01, 2017 INSTRUCTIONS MEDICATIONS ADMINISTERED No Known Medications [...] left hip pain, age-indeterminate pubic rami fracture-- [facility] 07/07/16
--- OUTSIDE RECORDS SUMMARY | 2018-05-30 18:51 | XMS REPORT ---
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
--- OUTSIDE RECORDS SUMMARY | 2018-05-30 18:51 | XMS REPORT ---
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
--- OUTSIDE RECORDS SUMMARY | 2018-05-30 18:51 | XMS REPORT ---
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
--- OUTSIDE RECORDS SUMMARY | 2018-05-30 18:51 | XMS REPORT ---
Author Author TRISHA SERRANO Organization [employer] Address Unknown Phone Unavailable Care Team Providers Care Crop [place] Hand Name Role Phone TRISHA SERRANO CP Unavailable Allergies No Known Allergies Problems Problem Type Condition Code Onset Dates Condition Status Problem Hyperlipidemia 272.4 Active Assessment Dementia 294.20 Active Problem Hypertension 401.9 Active Medications No Known Medications Results No Known Results Summary Purpose [employer] Submission
--- OUTSIDE RECORDS SUMMARY | 2018-05-30 18:51 | XMS REPORT ---
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 76169219 Problem 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 Active 85287933 Problem 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 Active 233517554 Problem Hallucinations R44.3 Active 1669051 Problem Psychosis, unspecified psychosis type F29 Active 86878032 ALLERGIES No Information ENCOUNTERS Encounter Location Date Diagnosis [place] [id number] [address] Jan, [facility] [address] [place] [id number] [place] [address] 15258- 0346 Dec, Psychosis, unspecified psychosis type F29 [facility] [id number] [place] [address] 11384- 1714 Dec, [facility] [id number] [place] [address] 34663- 1330 13 Dec, 2017 [facility] [address] [address]- [address] Nov, Unspecified dementia without behavioral disturbance F03.90 and 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 [facility] [address] [address] Oct, [facility] [address] [id number] [place] [address] 17994- 8871 Oct, [facility] [address] [address] Oct, [facility] [address] 7[address]- 1670 Oct, Dementia, unspecified, without behavioral disturbance F03.90 [place] [address] [address]- 7468 Sep, Medicare annual wellness visit, initial Z00.00 and Encounter for immunization Z23 [place] [address] 20[address]- 3205 Aug, 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 and Hallucinations R44.3 [place] [address] [address]- 44[address] Aug, [place] [address] 34[address]- 3648 Jul, Encounter for immunization Z23 [place] [address] 96[address]- 2406 Jun, Hallucinations R44.3 [place] [address] 52931- 6179 Jun, Hallucinations R44.3 [place] [address] 7[address]- 6600 May, Arthralgia of left knee M25.562 ; Age-related nuclear cataract of both eyes H25.13 and Hallucinations R44.3 [place] [address] [address]- 64[address] May, [place] [address] [address]- 6859 May, [place] [address] [address]16- 4504 Mar, Hyperlipidemia E78.5 and Hypertension I10 [facility] [address] [id number] [place] [address] 73108- 0237 Mar, Hyperlipidemia E78.5 and Hypertension I10 [facility] [id number] [place] [address] 77980- 8081 Mar, [facility] [id number] [place] [address] 44743- 7110 15 Nov, 2016 Hypertension I10 ; 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 ; 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 and 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 [facility] [id number] [place] [address] 89689- 7951 14 Aug, 2016 [facility] [id number] [place] [address] 18723- 4819 08 Aug, 2016 [facility] [id number] [place] [address] 91358- 4003 Aug, Hypertension I10 and 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 [facility] [id number] [place] [address] 23999- 1903 14 Jul, 2016 [facility] [id number] [place] [address] 86533- 4983 26 Jun, 2016 [facility] [id number] [place] [address] 39007- 8118 23 Jun, 2016 [facility] [id number] [place] [address] 31876- 0089 23 Jun, 2016 [facility] [id number] [place] [address] 09623- 5870 20 Jun, 2016 [facility] [id number] [place] [address] 91983- 9892 16 Jun, 2016 [facility] [address] [place] [address] 77900 -9135 13 May, 2016 Urinary frequency R35.0 and Acute cystitis without hematuria N30.00 [place] [address] [address] Jan, [place] [address] [place] [place] [id number] [place] [address] 61861- 5296 Jan, [place] [address] [place] [id number] [place] [address] 98498- 2829 Dec, Hyperlipidemia E78.5 [place] [address] [id number] [place] [address] 32155- 5829 Dec, 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 ; Hyperlipidemia E78.5 and Hypertension I10 [place] [id number] [place] [address] 10187- 5514 Nov, [place] [address] [place] [id number] [place] [address] 23689- 1045 Aug, 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 ; Senile cataracts of both eyes H25.9 and Constipation, unspecified constipation type K59.00 [place] [address] [id number] [place] [address] 50597- 6656 Jun, Unspecified psychosis 298.9 and 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 [place] [id number] [place] [address] 26203- 6321 Jun, 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 [place] [address] [place] [id number] [place] [address] 92840- 0826 May, Dementia 294.20 [place] [address] [id number] [place] [address] 32084- 4626 May, Establishing care with new doctor, encounter for V65.8 ; Ataxia 781.3 ; Horizontal nystagmus 379.56 ; Hypertension 401.9 ; Hyperlipidemia 272.4 and History of TIA (transient ischemic attack) V12.54 [place] [address] [place] [id number] [place] [address] 64782- 4461 May, [place] [address] [place] [id number] [place] [address] 43464- 5505 May, IMMUNIZATIONS No Known Immunizations SOCIAL HISTORY [...] left hip pain, age-indeterminate pubic rami fracture-- [facility] 07/07/16
--- OUTSIDE RECORDS SUMMARY | 2018-05-30 18:51 | XMS REPORT ---
Author Author MONIQUE FERNANDEZ [facility] eClinicalWorks Address Unknown Phone Unavailable Care Team Providers Care Econometrician Name Role Phone MONIQUE FERNANDEZ CP Unavailable Allergies, Adverse Reactions, Alerts Substance Reaction Event Type N.K.D.A. 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 Medications Medication Code System Code Instructions Start Date End Date Status Dosage Colace [facility] [address]-01 100 MG Orally (Home Delivery) Once a day may repeat if needed 1 capsule as needed for constipation Lisinopril [facility] [address]-98 40 MG Orally Once a day 1 tablet Aspirin Low Dose [facility] [address]-26 81 MG Orally Once a day 1 tablet Tylenol [facility] [address]-88 325 MG Orally 2 times a day 1 tablet as needed Bystolic [facility] [address]-77 5 MG Orally (Home Delivery) Once a day 1 tablet Celexa [facility] [address]-00 20 mg Orally (Home Delivery) Once a day 1 tablet Fish Oil [facility] [address]-47 1000 MG Orally Twice a day 1 capsule Advil [facility] [address]-70 200 MG Orally every 6 hrs 1 tablet as needed Bactrim DS [facility] [address]-42 800-160 MG Orally Twice a day Jun 03, 2016 Jun 08, 2016 1 tablet Simvastatin [facility] [address]-18 20 mg Orally (Home Delivery) Once a day 1 tablet in the evening Procedures Procedure Coding System Code Date LAB [facility] CPT-4 NOBLL Jun 03, 2016 [facility] VISIT ESTABLISHED PATIENT CPT-4 G0467 Jun 03, 2016 URINALYSIS, AUTO, W/O SCOPE CPT-4 57247 Jun 03, 2016 Office Visit, Est Pt., Level 3 CPT-4 44535 Jun 03, 2016 Vital Signs Date/Time: Jun 03, 2016 Cardiac Monitoring Heart Rate 58 bpm Weight 122.0 lbs Height 64 in BMI 20.94 Index Blood Pressure Diastolic 70 mmHg Blood Pressure Systolic 104 mmHg Results No Known Results Summary Purpose eClinicalWorks Submission
--- OUTSIDE RECORDS SUMMARY | 2018-05-30 18:51 | XMS REPORT ---
Author Author TRISHA SERRANO [facility] eClinicalWorks Address Unknown Phone Unavailable Care Team Providers Care Farm Laborer Name Role Phone TRISHA SERRANO CP Unavailable Allergies, Adverse Reactions, Alerts Substance Reaction Event Type N.K.D.A. Info Not Available Non Drug Allergy Problems Problem Type Condition ICD-9 Code Onset Dates Condition Status Assessment History of TIA (transient ischemic attack) V12.54 Active Problem Hyperlipidemia 272.4 Active Assessment Establishing care with new doctor, encounter for V65.8 Active Problem Hypertension 401.9 Active Assessment Hypertension 401.9 Active Assessment Hyperlipidemia 272.4 Active Assessment Ataxia 781.3 Active Assessment Horizontal nystagmus 379.56 Active Medications Medication Code System Code Instructions Start Date End Date Status Dosage Fish Oil [facility] [address]-86 1000 MG Orally Twice a day 1 capsule Bystolic [facility] [address]-72 5 MG Orally Once a day 1 tablet Coenzyme Q10 [facility] [address]-95 10 MG Orally Once a day 1 capsule with a meal Tylenol [facility] [address]-00 325 MG Orally 2 times a day 1 tablet as needed Celexa [facility] [address]-84 20 MG Orally Once a day 1 tablet Simvastatin [facility] [address]-63 20 MG Orally Once a day 1 tablet in the evening Aspirin Low Dose [facility] [address]-77 81 MG Orally Once a day 1 tablet Lisinopril [facility] [address]-55 40 MG Orally Once a day 1 tablet Ibuprofen [facility] [address]-52 200 MG Orally Once a day 1 tablet as needed Magnesium Oxide [facility] [address]-38 400 MG Orally Once a day not defined Advil [facility] [address]-82 200 MG Orally every 6 hrs 1 tablet as needed Procedures Procedure Coding System Code Date Office Visit, New Pt., Level 3 CPT-4 01159 Jun 03, 2015 [facility] VISIT NEW PATIENT CPT-4 G0466 Jun 03, 2015 Vital Signs Date/Time: Jun 03, 2015 Temperature 98.1 F Weight 115.5 lbs Height 64 in BMI 19.82 Index Blood Pressure Diastolic 74 mmHg Blood Pressure Systolic 132 mmHg Cardiac Monitoring Heart Rate 68 bpm Results No Known Results Summary Purpose eClinicalWorks Submission
--- OUTSIDE RECORDS SUMMARY | 2018-05-30 18:51 | XMS REPORT ---
Author Author TRISHA SERRANO Organization eClinicalWorks Address Unknown Phone Unavailable Care Team Providers Care Road Sign Installer Name Role Phone TRISHA SERRANO CP Unavailable [...]
--- OUTSIDE RECORDS SUMMARY | 2018-05-30 18:52 | XMS REPORT ---
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 37376586 Problem Hallucinations R44.3 Active 6380907 Problem Psychosis, unspecified psychosis type F29 Active 18156729 Problem Hypertension I10 Active 15408772 Problem Hyperlipidemia E78.5 Active 96292628 Problem 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 Active 91458819 Problem 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 Active 160215226 ALLERGIES No Known Allergies SOCIAL HISTORY Never Assessed PLAN OF CARE Activity Details Follow Up 3 Months Reason:BP VITAL SIGNS Height 64 in 2016-12-06 Weight 122.5 lbs 2016-12-06 Temperature 97.7 degrees Fahrenheit 2016-12-06 Heart Rate 58 bpm 2016-12-06 Respiratory Rate 18 2016-12-06 BMI 21.02 kg/m2 2016-12-06 Blood pressure systolic 100 mmHg 2016-12-06 Blood pressure diastolic 68 mmHg 2016-12-06 MEDICATIONS Medication Instructions Dosage Frequency Start Date End Date Duration Status Protonix 40 mg Orally Once a day 1 tablet 24h 30 Active Aspirin Low Dose 81 MG Orally Once a day 1 tablet 24h Active Fish Oil 1000 MG Orally Twice a day 1 capsule 12h Active Celexa 20 mg Orally (Home Delivery) Once a day 1 tablet 24h 90 Active Simvastatin 20 mg Orally (Home Delivery) Once a day 1 tablet in the evening 24h 90 Active RESULTS No Results PROCEDURES Procedure Date Ordered Result Body Site [facility] VISIT ESTABLISHED PATIENT Dec 06, 2016 IMMUNIZATIONS No Known Immunizations MEDICAL (GENERAL) HISTORY Type Description Date Medical [...] Bilat; 05/2014 <40% bilat Medical History cataracts Hospitalization History falls Hospitalization History left hip pain, age-indeterminate pubic rami fracture-- [facility] 07/07/16
--- OUTSIDE RECORDS SUMMARY | 2018-05-30 18:52 | XMS REPORT ---
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 96704138 Problem 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 Active 52766547 Problem 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 Active 744322262 Problem Hallucinations R44.3 Active 6198572 Problem Psychosis, unspecified psychosis type F29 Active 84991147 ALLERGIES No Information ENCOUNTERS Encounter Location Date Diagnosis [place] [address] [address] Jan, [facility] [address] [place] [place] [id number] [place] [address] 93564- 6235 Dec, Psychosis, unspecified psychosis type F29 [facility] [address] [id number] [place] [address] 63629- 2637 15 Dec, 2017 [facility] [address] [place] [id number] [place] [address] 30333- 9290 13 Dec, 2017 [facility] [address] 35[address]- 9370 Nov, Unspecified dementia without behavioral disturbance F03.90 and 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 [facility] [address] 80291- 8563 Oct, [facility] [address] [place] [id number] [place] [address] 47076- 4201 Oct, [place] [address] 60[address]- 4898 Oct, [facility] [address] [address]- 4807 Oct, Dementia, unspecified, without behavioral disturbance F03.90 [place] [address] [address]26- 5611 Sep, Encounter for immunization Z23 and Medicare annual wellness visit, initial Z00.00 [place] [address] 54[address]- 5384 Aug, 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 and Hallucinations R44.3 [place] [address] 53355- 4031 Aug, [place] [address] 78688- 1480 Jul, Encounter for immunization Z23 [place] [address] 15207- 7794 Jun, Hallucinations R44.3 [place] [address] 47917- 6791 Jun, Hallucinations R44.3 [place] [address] 867[address]- 0023 May, Arthralgia of left knee M25.562 ; Age-related nuclear cataract of both eyes H25.13 and Hallucinations R44.3 [place] [address] 099[address]- 2331 May, [place] [address] 92563- 3843 May, [place] [address] 43660- 2598 Mar, Hyperlipidemia E78.5 and Hypertension I10 [facility] [address] [place] [id number] [place] [address] 18117- 6609 Mar, Hyperlipidemia E78.5 and Hypertension I10 [facility] [address] [place] [place] [id number] [place] [address] 90426- 5260 Mar, [facility] [address] [place] [id number] [place] [address] 14031- 5149 15 Nov, 2016 Hypertension I10 ; 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 ; 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 and 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 [facility] [address] [place] [place] [id number] [place] [address] 66353- 9124 14 Aug, 2016 [facility] [address] [place] [id number] [place] [address] 30831- 3855 08 Aug, 2016 [facility] [address] [place] [id number] [place] [address] 31614- 4964 Aug, Hypertension I10 and 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 [facility] [address] [place] [place] [id number] [place] [address] 12508- 8177 14 Jul, 2016 [facility] [address] [id number] [place] [address] 55867- 1631 26 Jun, 2016 [facility] [address] [id number] [place] [address] 63509- 1814 23 Jun, 2016 [facility] [address] [id number] [place] [address] 38711- 6936 23 Jun, 2016 [facility] [id number] [place] [address] 37221- 8067 20 Jun, 2016 [facility] [id number] [place] [address] 53921- 9551 16 Jun, 2016 [facility] [address] [place] [address] 86290 -4113 13 May, 2016 Urinary frequency R35.0 and Acute cystitis without hematuria N30.00 [place] [address] [address] 7[address] Jan, [place] [address] [place] [id number] [place] [address] 91142- 0160 Jan, [place] [address] [place] [id number] [place] [address] 48667- 3704 Dec, Hyperlipidemia E78.5 [place] [address] [place] [place] [id number] [place] [address] 89061- 2569 Dec, 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 ; Hyperlipidemia E78.5 and Hypertension I10 [place] [id number] [place] [address] 26237- 7279 Nov, [place] [address] [place] [id number] [place] [address] 33255- 7785 Aug, 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 ; Senile cataracts of both eyes H25.9 and Constipation, unspecified constipation type K59.00 [place] [address] [place] [id number] [place] [address] 29512- 5945 Jun, Unspecified psychosis 298.9 and 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 [place] [id number] [place] [address] 13396- 3874 Jun, 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 [place] [address] [place] [id number] [place] [address] 89034- 6531 May, Dementia 294.20 [place] [address] [place] [id number] [place] [address] 83143- 9131 May, Establishing care with new doctor, encounter for V65.8 ; Ataxia 781.3 ; Horizontal nystagmus 379.56 ; Hypertension 401.9 ; Hyperlipidemia 272.4 and History of TIA (transient ischemic attack) V12.54 [place] [address] [place] [id number] [place] [address] 73352- 9905 May, [place] [address] [place] [id number] [place] [address] 09287- 8329 May, IMMUNIZATIONS No Known Immunizations SOCIAL HISTORY [...] left hip pain, age-indeterminate pubic rami fracture-- [facility] 07/07/16
--- OUTSIDE RECORDS SUMMARY | 2018-05-30 18:52 | XMS REPORT ---
Author Author TRISHA SERRANO [facility] eClinicalWorks Address Unknown Phone Unavailable Care Team Providers Care Music Therapy Specialist Name Role Phone TRISHA SERRANO CP Unavailable Allergies, Adverse Reactions, Alerts Substance Reaction Event Type N.K.D.A. 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 Problem Hypertension 401.9 Active Problem Unspecified psychosis 298.9 Active Assessment Senile cataracts of both eyes H25.9 Active Assessment Constipation, unspecified constipation type K59.00 Active Problem Hyperlipidemia 272.4 Active Assessment 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 Active Medications Medication Code System Code Instructions Start Date End Date Status Dosage Aspirin Low Dose [facility] [address]-52 81 MG Orally Once a day 1 tablet Fish Oil [facility] [address]-25 1000 MG Orally Twice a day 1 capsule Coenzyme Q10 [facility] [address]-63 10 MG Orally Once a day 1 capsule with a meal Magnesium Oxide [facility] [address]-66 400 MG Orally Once a day not defined Colace [facility] [address]-84 100 MG Orally Once a day may repeat if needed Sep 01, 2015 1 capsule as needed Simvastatin [facility] [address]-32 20 MG Orally Once a day 1 tablet in the evening Celexa [facility] [address]-24 20 MG Orally Once a day 1 tablet Lisinopril [facility] [address]-50 40 MG Orally Once a day 1 tablet Tylenol [facility] [address]-29 325 MG Orally 2 times a day 1 tablet as needed Advil [facility] [address]-77 200 MG Orally every 6 hrs 1 tablet as needed Bystolic [facility] [address]-50 5 MG Orally Once a day 1 tablet Procedures Procedure Coding System Code Date Office Visit, Est Pt., Level 3 CPT-4 16372 Sep 01, 2015 [facility] VISIT ESTABLISHED PATIENT CPT-4 G0467 Sep 01, 2015 Vital Signs Date/Time: Sep 01, 2015 Temperature 98.0 F Weight 118 lbs Height 64 in BMI 20.25 Index Blood Pressure Diastolic 70 mmHg Blood Pressure Systolic 128 mmHg Cardiac Monitoring Heart Rate 68 bpm Results No Known Results Summary Purpose eClinicalWorks Submission
--- OUTSIDE RECORDS SUMMARY | 2018-05-30 18:52 | XMS REPORT ---
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 Medications Medication Code System Code Instructions Start Date End Date Status Dosage Colace [facility] [address]-67 100 MG Orally (Home Delivery) Once a day may repeat if needed 1 capsule as needed for constipation Simvastatin [facility] [address]-18 20 mg Orally (Home Delivery) Once a day 1 tablet in the evening Celexa [facility] [address]-56 20 mg Orally (Home Delivery) Once a day 1 tablet Bystolic [facility] [address]-56 5 MG Orally (Home Delivery) Once a day 1 tablet Results No Known Results Summary Purpose eClinicalWorks Submission
[2018-05-30] MEDS ORDERED: FLUT9.9S NSEACH (19:26)
--- NOTE | 2018-05-30 19:27 | ED General ---
General Chief Complaint: General Problems/Pain Stated Complaint: HEAD, NECK, NOSE, AND L SHOULDER PAIN Nursing Triage Note: TO ROOM PER W/C ACCOMPIED BY DAUGHTER IN LAW. PATIENT REPORTS THAT SHE WOKE UP THIS AM WITH HER NOSE HURTING. SPREADING ACROSS FACE Nursing Sepsis Screen: No Definite Risk Source of Information: Patient, Family Exam Limitations: No Limitations History of Present Illness Date Seen by Provider: May 30, 2018 Time Seen by Provider: 18:38 Initial Comments This 82-year-old woman presents to the emergency room accompanied by her apvkwjrf-cd-tbd with complaints of nasal pain spreading across her cheeks and forehead and around the left eye. She states earlier in the day it radiated down her left neck and into her left elbow. Symptoms have been improving. They started after she woke around 10:00. She also has had some sneezing and nasal irritation. She states emesis 2 today. She took some Tylenol at home and has been improving since then. I have seen this patient multiple times in the ER and on each occasion she claims that there are ghosts living in her home and the ghosts follow her wherever she goes. She blames the ghosts for her symptoms and states they shot "sneezing powder" up her nose that caused the symptoms. Patient's family is fairly accepting of these claims and does not attempt to argue with the patient when she talks about the ghosts. She has been seeing and living with ghosts for years. Patient denies any injury to the face. Allergies and Home Medications Allergies Coded Allergies: No Known Drug Allergies (Verified , 07/28/16) Home Medications Acetaminophen 500 Mg Tablet, 1,000 MG PO TID Prescribed by: ROB JIMENEZ on 08/01/162045 Aspirin 81 Mg Tablet.dr, 81 MG PO DAILY, (Reported) Aspirin 81 Mg Tablet.dr, 81 MG PO DAILY, (Reported) Ca Cmb No.1/Vit D3/B-6/Fa/B12 1 Each Tablet, 1,000 UNITS PO DAILY, (Reported) Citalopram Hydrobromide 20 Mg Tablet, 20 MG PO HS, (Reported) Docosahexanoic Acid/Epa 1 Cap Capsule, 1,000 MG PO BID, (Reported) Docusate Sodium 100 Mg Capsule, 100 MG PO BID Prescribed by: ROB JIMENEZ on 08/01/162045 Fluticasone Propionate 9.9 Ml [place].susp, 2 SPRAY NSEACH DAILY 2 SPRAYS PER NOSTRIL DAILY X 2 DAYS THEN 1 SPRAY DAILY Prescribed by: HARMAN BENEDICT on 05/30/181925 Lisinopril 20 Mg Tablet, 20 MG PO DAILY@0900 Prescribed by: ROB JIMENEZ on 08/01/162045 Nebivolol HCl 5 Mg Tablet, 5 MG PO DAILY, (Reported) [place] 3 Polyunsat Fatty Acids 1,000 Mg Cap, 1,000 MG PO DAILY, (Reported) Pantoprazole Sodium 40 Mg Tablet.dr, 40 MG PO DAILY@0700 Prescribed by: ROB JIMENEZ on 08/01/162045 Simvastatin 20 Mg Tablet, 20 MG PO HS, (Reported) Sucralfate 1 Gm Tablet, 1 GM PO ACHS Prescribed by: ROB JIMENEZ on 08/01/162045 Tramadol HCl 50 Mg Tablet, 50 MG PO TID PRN for PAIN Prescribed by: JUSTINE TOMAS on 07/07/16 1226 Patient Home Medication List Home Medication List Reviewed: Yes Review of Systems Constitutional: no symptoms reported EENTM: see HPI Respiratory: no symptoms reported Cardiovascular: no symptoms reported Gastrointestinal: see HPI Genitourinary: no symptoms reported : No Musculoskeletal: no symptoms reported Skin: no symptoms reported Psychiatric/Neurological: See HPI Hematologic/Lymphatic: No Symptoms Reported Immunological/Allergic: no symptoms reported Past Fhrduxp-Ppbokz-Bnkohk Hx Past Med/Social Hx: Reviewed Nursing Past Med/Soc Hx Patient Social History Alcohol Use: Denies Use Recreational Drug Use: No Smoking Status: Never a Smoker Recent Foreign Travel: No Contact w/Someone Who Travel: No Recent Infectious Disease Expo: No Recent Hopitalizations: No Immunizations Up To Date Tetanus Booster (TDap): Unknown PED Vaccines UTD: No Date of Pneumonia Vaccine: Jul 22, 2017 Date of Influenza Vaccine: Jul 22, 2017 Seasonal Allergies Seasonal Allergies: No Past Medical History Surgeries: No Respiratory: No Cardiac: Yes (SEES DR. MOTTA UNSURE WHY) Hypertension Neurological: Yes Dementia : No Reproductive Disorders: No Female Reproductive Disorders: Denies Sexually Transmitted Disease: No HIV/AIDS: No Genitourinary: Yes UTI-Chronic Gastrointestinal: No Musculoskeletal: Yes Fractures, Gout Endocrine: Yes Hyperthyroidism HEENT: Yes Cataract Loss of Vision: Denies Hearing Impairment: Hard of Hearing Cancer: No Psychosocial: No Integumentary: No Recent Skin Changes Blood Disorders: No Adverse Reaction/Blood Tranf: No Family Medical History Reviewed Nursing Family Hx Dementia G8 SISTER Diabetes mellitus 19 FATHER No Pertinent Family Hx, Diabetes, Psychiatric Problems Physical Exam Vital Signs Vital Signs - First Documented 05/30/18 18:17 Temp 96.8 Pulse 76 Resp 18 B/P (MAP) 186/68 (107) Pulse Ox 98 O2 Delivery Room Air Capillary Refill : Less Than 3 Seconds Height, Weight, BMI Height: 5'3.00" Weight: 120lbs. 0.0oz. [id number]; 20.1 BMI Method:Stated General Appearance: No Apparent Distress, WD/WN HEENT: PERRL/EOMI, TMs Normal (left TM obscured by cerumen), Normal ENT Inspection, Other (. Oropharynx somewhat dry. Mild tenderness around the maxilla bilaterally and left orbit. 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 Norm as Tested, Other (hallucinations of ghosts) Skin: Normal Color, Warm/Dry Progress/Results/Core Measures Suspected Sepsis Recent Fever Within 48 Hours: No Infection Criteria Present: None New/Unexplained Altered Menta: No Sepsis Screen: No Definite Risk SIRS Temperature:96.8 Pulse: 76 Respiratory Rate: 18 Blood Pressure 186 /68 Mean: 107 Results/Orders Vital Signs/I&O 05/30/18 05/30/18 18:17 19:33 Temp 96.8 96.8 Pulse 76 76 Resp 18 18 B/P (MAP) 186/68 (107) 186/68 (107) Pulse Ox 98 98 O2 Delivery Room Air Room Air Capillary Refill : Less Than 3 Seconds Blood Pressure Mean: 107 Progress Note : Progress Note There are no significant exam findings except for some mild intranasal irritation. Patient drank a full glass of water without any nausea or vomiting. We will trial some nasal steroid spray. She is to follow-up with her doctor next week if this does not improve her symptoms. Departure Impression Primary Impression: Facial pain Additional Impressions: Sneezing Nausea and vomiting Qualified Codes: R11.2 - Nausea with vomiting, unspecified Disposition: 01 HOME, SELF-CARE Condition: Stable Departure-Patient Inst. Decision time for Depature: 19:23 Referrals: HERNESTO CATALAN MD (PCP/Family) Primary Care Physician Patient Instructions: Seasonal Allergies in Adults, Sinusitis in Adults Add. Discharge Instructions: Drink plenty of clear liquids. Use Flonase as prescribed. Follow-up with your primary care provider on Sunday if not improving. Return to the ER if symptoms are worsening especially if you develop fevers over 100. You may take Tylenol (acetaminophen) up to 650 mg every 6 hours as needed for pain. All discharge instructions reviewed with patient and/or family. Voiced understanding. Scripts Fluticasone Propionate (Flonase Allergy Relief) 9.9 Ml [place].susp 2 SPRAY NSEACH DAILY, #1 EACH 2 SPRAYS PER NOSTRIL DAILY X 2 DAYS THEN 1 SPRAY DAILY Prov: HARMAN LUCAS MD 05/30/18 Copy Copies To 1: HERNESTO CATALAN MD, JOSHUA T MD May 30, 2018 19:27
[2018-05-30 19:33] VITALS: BP 186/68
== END 2018-05-30 19:31 | disposition home or self-care (01) ==
LOC: EDUNIT# 18:14 → ER 18:15
DX: R51 Headache (principal); R06.7 Sneezing; R11.2 Nausea with vomiting, unspecified; I10 Essential (primary) hypertension; F03.90 Unspecified dementia, unspecified severity, without behavioral disturbance, psychotic disturbance, mood disturbance, and anxiety; M10.9 Gout, unspecified; E05.90 Thyrotoxicosis, unspecified without thyrotoxic crisis or storm; Z87.440 Personal history of urinary (tract) infections; Z79.82 Long term (current) use of aspirin; Z79.51 Long term (current) use of inhaled steroids
CPT/HCPCS: 99281

== ENCOUNTER 2018-10-02 08:06 | Observation (INO) | payer MEDICARE, OTHER ==
[~2018-10-02] VITALS: Ht 162.6 cm; Wt 51.0 kg
[~2018-10-02 08:06] MED LIST changes: +FLUT9.9S NSEACH
[2018-10-02 08:42] LABS: BASOPHILS % (AUTO) 0 % (0-10); EOSINOPHILS # (AUTO) 0.1 10^3/uL (0.0-0.3); EOSINOPHILS % (AUTO) 1 % (0-10); HEMATOCRIT 33 % (35-52); HEMOGLOBIN 10.9 G/DL (11.5-16.0); LYMPHOCYTES # (AUTO) 1.7 X 10^3 (1.0-4.0); LYMPHOCYTES % (AUTO) 19 % (12-44); MEAN CORPUSCULAR HEMOGLOBIN 30 PG (25-34); MEAN CORPUSCULAR HGB CONC 33 G/DL (32-36); MEAN CORPUSCULAR VOLUME 90 FL (80-99); MEAN PLATELET VOLUME 9.3 FL (7.4-10.4); MONOCYTES # (AUTO) 0.8 X 10^3 (0.0-1.0); MONOCYTES % (AUTO) 9 % (0-12); NEUTROPHILS # (AUTO) 6.3 X 10^3 (1.8-7.8); NEUTROPHILS % (AUTO) 71 % (42-75); PLATELET COUNT 180 10^3/uL (130-400); RED BLOOD COUNT 3.67 10^6/uL (4.35-5.85); RED CELL DISTRIBUTION WIDTH 15.2 % (10.0-14.5); WHITE BLOOD COUNT 8.9 10^3/uL (4.3-11.0)
--- NOTE | 2018-10-02 08:55 | ED Fall/Injury ---
General Chief Complaint: Trauma-Non Activation Stated Complaint: FALL Source: patient Exam Limitations: no limitations History of Present Illness Date Seen by Provider: Oct 02, 2018 Time Seen by Provider: 08:25 Initial Comments Here with fall this morning. Apparently tripped related to her left foot pain which she has a bunion that seems to be somewhat inflamed. Landed on her right side and hit her head and complains of right rib pain lower margin and right upper quadrant abdominal pain. Denies loss of consciousness. No bleeding or lacerations. Denies other injury. Complains of right-sided head pain but denies neck pain. Occurred: this morning (approximately one hour ago) Severity: mild, moderate Injuries/Pain Location: head, chest, abdomen Context: tripped Loss of Consciousness: no loss of consciousness Modifying Factors: Worse With Movement; Improves With Rest Associated Symptoms (Fall): Abdominal Pain, Chest Pain; No Confusion; Headache ; No Muscle Spasms, No Nausea/Vomiting, No Neck Pain, No Shortness of Air Allergies and Home Medications Allergies Coded Allergies: No Known Drug Allergies (Verified , 07/28/16) Home Medications Acetaminophen 500 Mg Tablet, 1,000 MG PO TID Prescribed by: ROB JIMENEZ on 08/01/162045 Aspirin 81 Mg Tablet.dr, 81 MG PO DAILY, (Reported) Aspirin 81 Mg Tablet.dr, 81 MG PO DAILY, (Reported) Ca Cmb No.1/Vit D3/B-6/Fa/B12 1 Each Tablet, 1,000 UNITS PO DAILY, (Reported) Citalopram Hydrobromide 20 Mg Tablet, 20 MG PO HS, (Reported) Docosahexanoic Acid/Epa 1 Cap Capsule, 1,000 MG PO BID, (Reported) Docusate Sodium 100 Mg Capsule, 100 MG PO BID Prescribed by: ROB JIMENEZ on 08/01/162045 Fluticasone Propionate 9.9 Ml [place].susp, 2 SPRAY NSEACH DAILY 2 SPRAYS PER NOSTRIL DAILY X 2 DAYS THEN 1 SPRAY DAILY Prescribed by: HARMAN BENEDICT on 05/30/181925 Lisinopril 20 Mg Tablet, 20 MG PO DAILY@0900 Prescribed by: ROB JIMENEZ on 08/01/162045 Nebivolol HCl 5 Mg Tablet, 5 MG PO DAILY, (Reported) [place] 3 Polyunsat Fatty Acids 1,000 Mg Cap, 1,000 MG PO DAILY, (Reported) Pantoprazole Sodium 40 Mg Tablet.dr, 40 MG PO DAILY@0700 Prescribed by: ROB JIMENEZ on 08/01/162045 Simvastatin 20 Mg Tablet, 20 MG PO HS, (Reported) Sucralfate 1 Gm Tablet, 1 GM PO ACHS Prescribed by: ROB JIMENEZ on 08/01/162045 Tramadol HCl 50 Mg Tablet, 50 MG PO TID PRN for PAIN Prescribed by: JUSTINE TOMAS on 07/07/16 1226 Patient Home Medication List Home Medication List Reviewed: Yes Review of Systems Review of Systems Constitutional: see HPI; No chills, No fever Ears, Nose, Mouth, Throat: no symptoms reported Respiratory: no symptoms reported Cardiovascular: see HPI, chest pain (right low ribs); No edema Gastrointestinal: abdominal pain (RUQ); No nausea, No vomiting Genitourinary: no symptoms reported Musculoskeletal: joint pain (left foot great toe at the MTP), joint swelling ( left foot great toe at the MTP) Skin: change in color (redness of the left foot); No lesions Psychiatric/Neurological: No Symptoms Reported All Other Systems Reviewed Negative Unless Noted: Yes Past Eqthhaq-Lrqgjj-Hzchvh Hx Past Med/Social Hx: Reviewed Nursing Past Med/Soc Hx Patient Social History Alcohol Use: Denies Use Recreational Drug Use: No Smoking Status: Never a Smoker Recent Hopitalizations: No Immunizations Up To Date Tetanus Booster (TDap): Unknown PED Vaccines UTD: No Date of Pneumonia Vaccine: Jul 22, 2017 Date of Influenza Vaccine: Jul 22, 2017 Seasonal Allergies Seasonal Allergies: No Past Medical History Surgeries: No Respiratory: No Cardiac: Yes (SEES DR. MOTTA UNSURE WHY) Hypertension Neurological: Yes Dementia Reproductive Disorders: No Female Reproductive Disorders: Denies Sexually Transmitted Disease: No HIV/AIDS: No Genitourinary: Yes UTI-Chronic Gastrointestinal: No Musculoskeletal: Yes Fractures, Gout Endocrine: Yes Hyperthyroidism HEENT: Yes Cataract Loss of Vision: Denies Hearing Impairment: Hard of Hearing Cancer: No Psychosocial: No Integumentary: No Recent Skin Changes Blood Disorders: No Adverse Reaction/Blood Tranf: No Family Medical History Reviewed Nursing Family Hx Dementia G8 SISTER Diabetes mellitus 19 FATHER No Pertinent Family Hx, Diabetes, Psychiatric Problems Physical Exam Vital Signs Vital Signs - First Documented 10/02/18 08:23 Temp 97.9 Pulse 78 Resp 18 B/P (MAP) 171/83 (112) Pulse Ox 99 Capillary Refill : Height, Weight, BMI Height: 5'3.00" Weight: 120lbs. 0.0oz. 54.052443nr; 20.1 BMI Method:Stated General Appearance: WD/WN, no apparent distress HEENT: PERRL/EOMI, pharynx normal Neck: full range of motion, supple Cardiovascular: regular rate, rhythm, no murmur Respiratory: lungs clear, normal breath sounds, other (chest pain to right low lateral rib margin without bruising or deformity) Gastrointestinal: soft; No guarding, No rebound; tenderness (right upper quadrant and lateral aspect) Back: normal inspection, no CVA tenderness, no vertebral tenderness Extremities: normal range of motion, other (tenderness and swelling to the left foot at the MTP on the great toe where bunion is noted. Mild redness noted at that area.) Neurologic/Psychiatric: alert, normal mood/affect Skin: warm/dry, other (erythema noted to the foot as described above) Golden Coma Score Best Eye Response: (4) Open Spontaneously Best Verbal Response: (5) Oriented Best Motor Response: (6) Obeys Commands Progress/Results/Core Measures Results/Orders Lab Results Laboratory Tests Test 10/02/18 08:38 Range/Units White Blood Count 8.9 4.3-11.0 10^3/uL Red Blood Count 3.67 L 4.35-5.85 10^6/uL Hemoglobin 10.9 L 11.5-16.0 G/DL Hematocrit 33 L 35-52 % Mean Corpuscular Volume 90 80-99 FL Mean Corpuscular Hemoglobin 30 25-34 PG Mean Corpuscular Hemoglobin Concent 33 32-36 G/DL Red Cell Distribution Width 15.2 H 10.0-14.5 % Platelet Count 180 130-400 10^3/uL Mean Platelet Volume 9.3 7.4-10.4 FL Neutrophils (%) (Auto) 71 42-75 % Lymphocytes (%) (Auto) 19 12-44 % Monocytes (%) (Auto) 9 0-12 % Eosinophils (%) (Auto) 1 0-10 % Basophils (%) (Auto) 0 0-10 % Neutrophils # (Auto) 6.3 1.8-7.8 X 10^3 Lymphocytes # (Auto) 1.7 1.0-4.0 X 10^3 Monocytes # (Auto) 0.8 0.0-1.0 X 10^3 Eosinophils # (Auto) 0.1 0.0-0.3 10^3/uL Basophils # (Auto) 0.0 0.0-0.1 10^3/uL Sodium Level 139 135-145 MMOL/L Potassium Level 4.0 3.6-5.0 MMOL/L Chloride Level 103 98-107 MMOL/L Carbon Dioxide Level 25 21-32 MMOL/L Anion Gap 11 5-14 MMOL/L Blood Urea Nitrogen 25 H 7-18 MG/DL Creatinine 1.07 0.60-1.30 MG/DL Estimat Glomerular Filtration Rate 49 BUN/Creatinine Ratio 23 Glucose Level 107 H 70-105 MG/DL Calcium Level 9.2 8.5-10.1 MG/DL Corrected Calcium 9.6 8.5-10.1 MG/DL Total Bilirubin 0.8 0.1-1.0 MG/DL Aspartate Amino Transf (AST/SGOT) 26 5-34 U/L Alanine Aminotransferase (ALT/SGPT) 26 0-55 U/L Alkaline Phosphatase 58 40-136 U/L Total Protein 6.6 6.4-8.2 GM/DL Albumin 3.5 3.2-4.5 GM/DL My Orders Orders - KRISS SAGASTUME MD Cbc With Automated Diff (10/02/18 08:21) Comprehensive Metabolic Panel (10/02/18 08:21) Foot, Left, 3 Views (10/02/18 08:21) Saline Lock/Iv-Start (10/02/18 08:21) Ct Head/Cervical Spine Wo (10/02/18 08:21) Ct Chest/Abdomen/Pelvis W (10/02/18 09:13) Iohexol Injection (Omnipaque 350 Mg/Ml 1 (10/02/18 09:30) Contrast Received (Contrast Received) (10/02/18 09:30) Ns (Ivpb) (Sodium Chloride 0.9% Ivpb Bag (10/02/18 09:30) Medications Given in ED Current Medications Medications Dose Ordered Sig/Kayla Route Start Time Stop Time Status Last Admin Dose Admin Iohexol 75 ml ONCE ONCE IV 10/02/18 09:30 10/02/18 09:31 DC 10/02/18 09:17 75 ML Sodium Chloride 100 ml ONCE ONCE IV 10/02/18 09:30 10/02/18 09:31 DC 10/02/18 09:17 80 ML Vital Signs/I&O 10/02/18 08:23 Temp 97.9 Pulse 78 Resp 18 B/P (MAP) 171/83 (112) Pulse Ox 99 Progress Progress Note : Progress Note Seen and evaluated. IV, labs, CT head and neck ordered. X-ray left foot ordered. Anticipate CT chest and abdomen but pending creatinine studies. 1103 : I discussed the case with Dr. Rodriguez after findings of third through seventh rib fractures noted. Patient comfortable but given her age and multiple rib fractures, observation admission is indicated. Dr. Rodriguez agrees and accepts patient for admission. Requests consult with medicine service. I did discuss the case with Dr. Anne at 1106 who accepts patient for consult. Patient and family agree with plan. 1120: I discussed the case with the patient, patient's son and daughter who all agree for admission. Diagnostic Imaging Diagonstic Imaging: Xray Plain Films/CT/US/NM/MRI: other Comments NAME: SUDARSHAN BARBOSA [facility] REC#: [id number] PT STATUS: REG ER : 1935 PHYSICIAN: KRISS SAGASTUME MD ADMIT DATE: 10/02/18/ER Signed Date of Exam: 10/02/18 FOOT, LEFT, 3 VIEWS INDICATION: Status post fall with left foot pain AP, oblique, and lateral views of the left foot are obtained at 1018 AM. There is osteopenia. There is an acute oblique fracture of the distal aspect of fifth metatarsal with mild displacement. There is no other acute finding. There is advanced degenerative change of the first MTP joint with prominent hallux valgus deformity. IMPRESSION: Acute fracture of fifth metatarsal as described above. Degenerative change of first MTP joint with prominent hallux valgus deformity. Underlying osteopenia. Dictated by: Dictated on workstation # [id number] Dict: 10/02/18 1037 Trans: 10/02/18 1041 Interpreted by: ZAKI ZULETA MD Electronically signed by: ZAKI ZULETA MD 10/02/18 1041 Diagonstic Imaging: CT Plain Films/CT/US/NM/MRI: chest, abdomen, pelvis Comments [facility]. [place], [place] NAME: SUDARSHAN BARBOSA [facility] REC#: [id number] PT STATUS: REG ER : 1935 PHYSICIAN: KRISS SAGASTUME MD ADMIT DATE: 10/02/18/ER Draft Date of Exam:10/02/18 CT CHEST/ABDOMEN/PELVIS W PROCEDURE: CT chest, abdomen, and pelvis with contrast. TECHNIQUE: Multiple contiguous axial images were obtained through the chest, abdomen, and pelvis after the administration of intravenous contrast. INDICATION: Fall. Left lower chest pain. Right upper quadrant abdominal pain. COMPARISON: 02/21/2012. FINDINGS: CT chest: The heart is normal in size. There is no pericardial effusion. No mediastinal adenopathy is seen. There is mild calcific atherosclerosis. A moderate-sized hiatal hernia is present, which has a fluid level. There is dependent atelectasis in the lungs bilaterally. There is no pleural effusion or pneumothorax. There are nodular groundglass opacities in the left upper lobe, with an irregular 8 mm nodular opacity. There are nondisplaced fractures of the right lateral third through seventh ribs. CT abdomen/pelvis: The liver demonstrates mild fatty infiltration along the falciform ligament but is otherwise unremarkable. The spleen demonstrates small hypodensities which are thought to be due to perfusion artifact, as well as a calcified granuloma. The pancreas is normal. The adrenal glands are normal. The kidneys demonstrate mild cortical thinning but are otherwise unremarkable with no laceration or hydronephrosis seen. The ureters appear normal. There is calcific atherosclerosis of the aorta without aneurysm or dissection. The bowel loops are nondistended, without obstruction seen. Calcific stones are seen dependently in the gallbladder. There is fatty infiltration of the sigmoid colon wall, which is nonspecific. No free fluid or free air is seen in the abdomen. There is diffuse osteopenia. There is deformity of the bilateral pubis and sacrum from remote trauma. No acute fracture is seen. IMPRESSION: 1. Nondisplaced fractures of the right lateral third through seventh ribs, which appear acute. Please correlate with point tenderness. 2. Nodular opacities in the left upper lobe, may represent atypical infection or aspiration. Recommend followup in 6-8 weeks to demonstrate improvement. 3. No acute abdominopelvic abnormality is seen. 4. Cholelithiasis. Dictated on workstation # [id number] Dict: 10/02/18 0936 Trans: 10/02/18 0954 [facility] [phone] Interpreted by: ARTUR VILLANUEVA MD Electronically signed by: Diagonstic Imaging: CT Plain Films/CT/US/NM/MRI: c-spine, head Comments [facility]. [place], [place] NAME: SUDARSHAN BARBOSA [facility] REC#: [id number] PT STATUS: REG ER : 1935 PHYSICIAN: KRISS SAGASTUME MD ADMIT DATE: 10/02/18/ER Draft Date of Exam:10/02/18 CT HEAD/CERVICAL SPINE WO PROCEDURE: CT head and CT cervical spine without contrast. TECHNIQUE: Multiple contiguous axial images were obtained through the brain and cervical spine without the use of intravenous contrast. Sagittal and coronal reformations through the cervical spine were then performed. INDICATION: Fall, injury to left side of the head. COMPARISON: 04/18/2018. FINDINGS: CT head: The ventricles and cortical sulci are mildly prominent, consistent with generalized parenchymal volume loss. There are focal areas of hypoattenuation in the periventricular and subcortical white matter, consistent with chronic microvascular disease. No acute intracranial hemorrhage is seen. There is no CT evidence of acute territorial ischemia. There is no midline shift or mass effect. The calvarium is intact. CT cervical spine: There is grade 1 anterolisthesis at C3-C4, C4-C5. There is mild reversal of the cervical lordosis at C5. Moderate degenerative changes are seen at C5-C6 and C6-C7. There is facet arthropathy bilaterally, left greater than right. Findings appear similar to March 2018. Vertebral body heights are preserved. No acute fracture is seen. There is calcific atherosclerosis. Prevertebral soft tissues are unremarkable. IMPRESSION: 1. No acute intracranial hemorrhage or CT evidence of acute territorial ischemia. No calvarium fracture seen. 2. Degenerative changes in the cervical spine appear similar to March 2018. No acute fracture is seen. Dictated on workstation # [id number] Dict: 10/02/18929 Trans: 10/02/18941 [facility] [phone] Interpreted by: ARTUR VILLANUEVA MD Electronically signed by: Departure Communication (Admissions) Time/Spoke to Admitting Phy: 11:03 Time/Spoke to Consulting Phy: 11:06 Impression Primary Impression: Multiple fractures of ribs, right side, initial encounter for closed fracture Additional Impressions: Minor head injury with loss of consciousness Qualified Codes: S06.9X9A - Unspecified intracranial injury with loss of consciousness of unspecified duration, initial encounter Nondisplaced fracture of fifth left metatarsal bone Qualified Codes: S92.355A - Nondisplaced fracture of fifth metatarsal bone, left foot, initial encounter for closed fracture Disposition: ADMITTED INPATIENT Condition: Stable Admissions Decision to Admit Reason: Admit from ER (Trauma) Decision to Admit/Date: Oct 02, 2018 Time/Decision to Admit Time: 11:03 Departure-Patient Inst. Referrals: HERNESTO CATALAN MD (PCP/Family) Primary Care Physician KRISS SAGASTUME MD Oct 02, 2018 08:55
[2018-10-02 09:02] LABS: ALBUMIN 3.5 GM/DL (3.2-4.5); BILIRUBIN,TOTAL 0.8 MG/DL (0.1-1.0); CALCIUM 9.2 MG/DL (8.5-10.1); CREATININE SERUM 1.07 MG/DL (0.60-1.30); TOTAL PROTEIN 6.6 GM/DL (6.4-8.2)
[2018-10-02] MEDS ORDERED: IOHEXOL 350 MG/ML 100 ML (OMNIPAQUE 350) VIAL IV ONE (09:30)
[2018-10-02] MEDS ORDERED: NS 100 ML (IVPB) BAG IV ONE (09:30)
[2018-10-02] MEDS ORDERED: RECEIVED CONTRAST (Hold Metformin) IV SCH (09:30)
--- NOTE | 2018-10-02 09:43 | Diagnostic Imaging Report ---
PROCEDURE: CT head and CT cervical spine without contrast. TECHNIQUE: Multiple contiguous axial images were obtained through the brain and cervical spine without the use of intravenous contrast. Sagittal and coronal reformations through the cervical spine were then performed. INDICATION: Fall, injury to left side of the head. COMPARISON: 04/18/2018. FINDINGS: CT head: The ventricles and cortical sulci are mildly prominent, consistent with generalized parenchymal volume loss. There are focal areas of hypoattenuation in the periventricular and subcortical white matter, consistent with chronic microvascular disease. No acute intracranial hemorrhage is seen. There is no CT evidence of acute territorial ischemia. There is no midline shift or mass effect. The calvarium is intact. CT cervical spine: There is grade 1 anterolisthesis at C3-C4, C4-C5. There is mild reversal of the cervical lordosis at C5. Moderate degenerative changes are seen at C5-C6 and C6-C7. There is facet arthropathy bilaterally, left greater than right. Findings appear similar to March 2018. Vertebral body heights are preserved. No acute fracture is seen. There is calcific atherosclerosis. Prevertebral soft tissues are unremarkable. IMPRESSION: 1. No acute intracranial hemorrhage or CT evidence of acute territorial ischemia. No calvarium fracture seen. 2. Degenerative changes in the cervical spine appear similar to March 2018. No acute fracture is seen. Dictated by: Dictated on workstation # [id number]
--- NOTE | 2018-10-02 09:55 | Diagnostic Imaging Report ---
PROCEDURE: CT chest, abdomen, and pelvis with contrast. TECHNIQUE: Multiple contiguous axial images were obtained through the chest, abdomen, and pelvis after the administration of intravenous contrast. INDICATION: Fall. Left lower chest pain. Right upper quadrant abdominal pain. COMPARISON: 02/21/2012. FINDINGS: CT chest: The heart is normal in size. There is no pericardial effusion. No mediastinal adenopathy is seen. There is mild calcific atherosclerosis. A moderate-sized hiatal hernia is present, which has a fluid level. There is dependent atelectasis in the lungs bilaterally. There is no pleural effusion or pneumothorax. There are nodular groundglass opacities in the left upper lobe, with an irregular 8 mm nodular opacity. There are nondisplaced fractures of the right lateral third through seventh ribs. CT abdomen/pelvis: The liver demonstrates mild fatty infiltration along the falciform ligament but is otherwise unremarkable. The spleen demonstrates small hypodensities which are thought to be due to perfusion artifact, as well as a calcified granuloma. The pancreas is normal. The adrenal glands are normal. The kidneys demonstrate mild cortical thinning but are otherwise unremarkable with no laceration or hydronephrosis seen. The ureters appear normal. There is calcific atherosclerosis of the aorta without aneurysm or dissection. The bowel loops are nondistended, without obstruction seen. Calcific stones are seen dependently in the gallbladder. There is fatty infiltration of the sigmoid colon wall, which is nonspecific. No free fluid or free air is seen in the abdomen. There is diffuse osteopenia. There is deformity of the bilateral pubis and sacrum from remote trauma. No acute fracture is seen. IMPRESSION: 1. Nondisplaced fractures of the right lateral third through seventh ribs, which appear acute. Please correlate with point tenderness. 2. Nodular opacities in the left upper lobe, may represent atypical infection or aspiration. Recommend followup in 6-8 weeks to demonstrate improvement. 3. No acute abdominopelvic abnormality is seen. 4. Cholelithiasis. Dictated by: Dictated on workstation # [id number]
--- NOTE | 2018-10-02 10:40 | Diagnostic Imaging Report ---
INDICATION: Status post fall with left foot pain AP, oblique, and lateral views of the left foot are obtained at 1018 AM. There is osteopenia. There is an acute oblique fracture of the distal aspect of fifth metatarsal with mild displacement. There is no other acute finding. There is advanced degenerative change of the first MTP joint with prominent hallux valgus deformity. IMPRESSION: Acute fracture of fifth metatarsal as described above. Degenerative change of first MTP joint with prominent hallux valgus deformity. Underlying osteopenia. Dictated by: Dictated on workstation # [id number]
[2018-10-02 11:55] LABS: BILIRUBIN,URINE NEGATIVE (NEGATIVE); CLARITY,URINE CLEAR; COLOR,URINE YELLOW; GLUCOSE, URINE (UA) NEGATIVE (NEGATIVE); KETONES,URINE NEGATIVE (NEGATIVE); LEUKOCYTE ESTERASE ,URINE NEGATIVE (NEGATIVE); NITRITE,URINE NEGATIVE (NEGATIVE); PH,URINE 8 (5-9); PROTEIN,URINE 1+ (NEGATIVE); UROBILINOGEN,URINE NORMAL (NORMAL)
[2018-10-02 12:04] VITALS: BP 177/75
[2018-10-02 12:10] LABS: BACTERIA,URINE NEGATIVE /HPF; RBC,URINE RARE /HPF; SQUAMOUS EPITHELIAL CELL,UR RARE /HPF; WBC,URINE RARE /HPF
[2018-10-02] MEDS ORDERED: FLU QUADRIvalent (5+ YOA) 2018-2019 (AFLURIA) 0.5 ML IM ONE (13:00)
[2018-10-02 13:36] VITALS: BP 171/83
[2018-10-02] MEDS ORDERED: QUET50TA49 PO (13:43)
[2018-10-02] MEDS ORDERED: ESCI10TA PO (13:43)
[2018-10-02] MEDS ORDERED: OMG1KC PO (13:43)
[2018-10-02] MEDS ORDERED: RT-ALBUTEROL/IPRATROPIUM 3 ML (DUONEB) VIAL INH PRN (14:00)
--- NOTE | 2018-10-02 15:56 | HISTORY AND PHYSICAL ---
DATE OF SERVICE: 10/02/2018 ATTENDING PRIMARY CARE PHYSICIAN: [facility]. HISTORY: The patient is an 82-year-old female, who lives at home with her son and [id number]. She states that she does ambulate with a walker at home and does majority of home activities independently. She reports that she has had some issues with loss of balance and falling. Today, she did fall on her right side on to some form of concrete slab. Afterwards that she did have pain in the right lateral and anterior rib cage as well as mild shortness of breath secondary to the pain. She denies any loss of consciousness. There are no open wounds or any lacerations. She does not report any neck pain, loss of consciousness as well as no headache or visual changes. Her [place] coma scale is 15. An x-ray of the left foot was performed due to foot pain, which did show a fracture of the fifth metatarsal bone, mildly displaced. CT scan of the chest, abdomen and pelvis showed nondisplaced fractures of right lateral third through seventh ribs. No other abnormalities detected. There was cholelithiasis found as an incidental finding. Upon examination today, she appears well and her [place] coma scale is 15. She does have pain in the right lateral and anterior rib; however, this is tolerable with pain medication. She does not have any distracting injuries. PAST MEDICAL HISTORY: Hypercholesterolemia, hypertension, chronic urinary tract infection, hyperthryroid, gastroesophageal reflux disease. PAST SURGICAL HISTORY: None. ALLERGIES: No known drug allergies. MEDICATIONS: 1. Aspirin 81 mg daily. 2. Citalopram 20 mg daily. 3. Lisinopril 20 mg daily. 4. Nebivolol 5 mg daily. 5. Protonix 40 mg daily. 6. Carafate 1 gram q.i.d. 7. Simvastatin 20 mg daily. 8. Tramadol 50 mg t.i.d. p.r.n. SOCIAL HISTORY: Negative smoke, negative alcohol. FAMILY HISTORY: Noncontributory. REVIEW OF SYSTEMS: This is a well-nourished female in no acute distress. She is not experiencing any shortness of breath or difficulty breathing. No chest pain, palpitations, or diaphoresis. No nausea or vomiting. No diarrhea or constipation. No red blood per rectum. No dark tarry stools. No fever or chills. No recent inadvertent weight loss. All other review of systems are negative. PHYSICAL EXAMINATION: VITAL SIGNS: Temperature 99.5, blood pressure 177/75, pulse 78, respirations 20, pulse ox 99% on room air. CHEST: A few scattered rales and rhonchi bilaterally. There is right rib pain upon gentle palpation. No flail segment or subcutaneous air. There is no crepitance as well. HEART: Regular. No murmurs. EXTREMITIES: No lower extremity edema. Negative Homans sign. HEENT: No scleral icterus. NECK: No cervical lymphadenopathy. ABDOMEN: Soft, nontender and nondistended. NEUROLOGIC: Alert and oriented x3. No focal deficits. LABORATORY DATA: WBC 8.9, hemoglobin 10.9, hematocrit 33, platelets 180. BUN 25 and creatinine 1.07. ASSESSMENT AND PLAN: An 82-year-old female involved in a fall with nondisplaced right rib fractures three through seven. We will admit her for observation. We will proceed with atelectasis and pneumonia prophylaxis with early ambulation, sitting upright, deep breathing exercises as well as incentive spirometer as much as possible. She also needs adequate pain control when necessary. Once ambulating well and has adequate pain control and no respiratory issues, we will discharge her home. Job ID: [id number] DocumentID: [id number] Dictated Date: 10/02/2018 15:19:08 Lay Up Operator Date: 10/02/2018 15:55:20 Dictated By: LARA BARRIOS MD [facility]
[2018-10-02] MEDS: ACETAMINOPHEN 325 MG TABLET PO PRN (16:31)
[2018-10-02] MEDS: NS IV 1000 ML 1,000 ML IV SCH (16:40)
[2018-10-02 16:50] VITALS: BP 165/70
[2018-10-02 20:00] VITALS: BP 136/63
[2018-10-02] MEDS: RT-ALBUTEROL/IPRATROPIUM 3 ML (DUONEB) VIAL INH SCH (20:03)
[2018-10-03] VITALS: BP 131/71
[2018-10-03 04:00] VITALS: BP 138/76
[2018-10-03 04:53] LABS: BASOPHILS % (AUTO) 0 % (0-10); EOSINOPHILS % (AUTO) 0 % (0-10); HEMATOCRIT 32 % (35-52); HEMOGLOBIN 10.8 G/DL (11.5-16.0); LYMPHOCYTES # (AUTO) 1.4 X 10^3 (1.0-4.0); LYMPHOCYTES % (AUTO) 16 % (12-44); MEAN CORPUSCULAR HEMOGLOBIN 30 PG (25-34); MEAN CORPUSCULAR HGB CONC 34 G/DL (32-36); MEAN CORPUSCULAR VOLUME 89 FL (80-99); MEAN PLATELET VOLUME 9.4 FL (7.4-10.4); MONOCYTES # (AUTO) 0.9 X 10^3 (0.0-1.0); MONOCYTES % (AUTO) 11 % (0-12); NEUTROPHILS # (AUTO) 6.1 X 10^3 (1.8-7.8); NEUTROPHILS % (AUTO) 73 % (42-75); PLATELET COUNT 184 10^3/uL (130-400); RED BLOOD COUNT 3.56 10^6/uL (4.35-5.85); WHITE BLOOD COUNT 8.4 10^3/uL (4.3-11.0)
[2018-10-03 05:20] LABS: ALBUMIN 3.4 GM/DL (3.2-4.5); BILIRUBIN,TOTAL 0.9 MG/DL (0.1-1.0); CREATININE SERUM 0.97 MG/DL (0.60-1.30); POTASSIUM 3.9 MMOL/L (3.6-5.0); TOTAL PROTEIN 6.4 GM/DL (6.4-8.2)
[2018-10-03] MEDS: RT-ALBUTEROL/IPRATROPIUM 3 ML (DUONEB) VIAL INH SCH ×2 (07:00→21:40)
--- NOTE | 2018-10-03 07:31 | Diagnostic Imaging Report ---
INDICATION: Rib fracture followup. FINDINGS: There are nondisplaced fractures of the right fifth, sixth and seventh ribs. There is no effusion or pneumothorax. Heart size and pulmonary vascularity are normal. IMPRESSION: Nondisplaced right rib fractures. No acute abnormality seen. Dictated by: Dictated on workstation # [id number]
[2018-10-03 08:00] VITALS: BP 169/82
[2018-10-03] MEDS: ACETAMINOPHEN 325 MG TABLET PO PRN ×2 (09:27→20:17)
[2018-10-03] MEDS: NS IV 1000 ML 1,000 ML IV SCH (09:27)
[2018-10-03 12:00] VITALS: BP 132/62
--- NOTE | 2018-10-03 13:48 | Physical Therapy Evaluation ---
PT Evaluation-General Medical Diagnosis Admission Date Oct 02, 2018 at 11:35 Medical Diagnosis: right 3-7 rib fracture/left 5th metatarsal fracture Onset Date: Oct 02, 2018 Therapy Diagnosis Therapy Diagnosis: debility Height/Weight Height (Feet): 5 Height (Inches): 4.00 Weight (Pounds): 112 Weight (Ounces): 6.0 Precautions Precautions/Isolations: Fall Prevention, Standard Precautions Weight Bear Status Right Lower Extremity: Right Weight Bearing/Tolerated Left Lower Extremity: Left Weight Bearing/Tolerated Referral Physician: Omid Reason for Referral: Evaluation/Treatment Medical History Pertinent Medical History: Arthritis, Dementia, HTN Additional Medical History lives with son/patient report she sees ghosts at home and here and they are all male and want to do things to her. Nursing airport ramp supervisor notified. Current History ED secondary to tripping and falling at home landing on right side Reviewed History: Yes Social History Home: Single Level Current Living Status: Children Prior/Core FIM Prior Level of Function Therapy Code Descriptions/Definitions Functional [place] Measure: 0=Not Assessed/NA 4=Minimal Assistance 1=Total Assistance 5=Supervision or Setup 2=Maximal Assistance 6=Modified [place] 3=Moderate Assistance 7=Complete [place] Therapy Quality Codes: 6 Independent with activity with or without an assistive device 5 Patient requires set up or clean up by helper. Patient completes activity by themselves 4 Supervision or touching assist (CGA). [place] provide cues , steadying assist 3 The helper provides less than half the effort to complete the activity 2 The helper provides more than half the effort to complete the activity 1 Dependent. The helper does all the effort to complete an activity 7 Patient refused to complete or attempt activity 9 The patient did not perform the activity before the current illness or injury 88 Not attempted due to Medical conditions or safety concerns Functional Abilities and Goals: Independent: Patient completed the activities by him/herself, with or without an assistive device, with no assistance from a helper. Needed Some Help: Patient needed partial assistance from another person to complete activities. Dependent: A helper completed the activities for the patient. Unknown: Not Applicable: Bed Mobility: 5 Transfers (B,C,W/C) (FIM): 5 Gait: 5 Indoor Mobility (Ambulation): Needed Some Help Stairs: Needed Some Help Prior Devices Use: Walker Prior Device Use: FWW PT Evaluation-Current Subjective Patient agrees to PT. Patient informs this PT about the ghosts in her room. Nursing airport ramp supervisor notified. Pain Numeric Pain Scale: 0-No Pain Location: No Pain Reported Objective Patient Orientation: Confused Problem Solving: Poor Attachments: IV ROM/Strength ROM Lower Extremities bilateral LE WFL Strength Lower Extremities 3+/5 grossly bilaterally Integumentary/Posture Integumentary refer to nursing notes Bowel Incontinence: No Bladder Incontinence: No Posture WFL Neuromuscular (Tone, Coordination, Reflexes) diminished coordination due to age and dementia Sensory Vision: Functional Hearing: Functional Sensation Right Lower Extremit: Impaired Sensation Left Lower Extremity: Impaired Transfers Therapy Code Descriptions/Definitions Functional [place] Measure: 0=Not Assessed/NA 4=Minimal Assistance 1=Total Assistance 5=Supervision or Setup 2=Maximal Assistance 6=Modified [place] 3=Moderate Assistance 7=Complete [place] Transfers (B, C, W/C) (FIM): 5 Scootin Rollin Supine to/from Sit: 5 Sit to/from Stand: 5 Gait Mode of Locomotion: Walk Anticipated Mode of Locomotion: Walk Gait (FIM): 5 Distance (FIM): 3=150 ft Distance: 250' Gait Level of Assist: 5 Gait Assistive Device: FWW Comments/Gait Description extended UE's with FWW use requiring skilled verbal instruction for body placement in FWW/steady gait sequence with minimal to no toe off bilaterally and WBOS Balance Sitting Static: Normal Sitting Dynamic: Normal Standing Static: Normal Standing Dynamic: Normal Assessment/Needs 82 y.o. female, will be seen short term by skilled PT to address functional strength and mobility to ensure safe return to home or care facility at maximum LOF. Rehab Potential: Fair PT Contract Attorney Goals Penitentiary Goals PT Contract Attorney Goals Time Frame: Oct 12, 2018 Transfers (B,C,W/C) (FIM): 6 Gait (FIM): 5 Gait distance (FIM): 3=150 ft Distance: 250' Gait Level of Assist: 5 Gait Assistive Device: FWW PT Plan Problem List Problem List: Safety Treatment/Plan Treatment Plan: Continue Plan of Care Treatment Plan: Education, Functional Activity Rom[place], Functional Strength, Gait , Safety, Therapeutic Exercise, Transfers Treatment Duration: Oct 12, 2018 Frequency: 6 times per week Estimated Hrs Per Day: .25 hour per day Patient and/or Family Agrees t: Yes Safety Risks/Education Patient Education: Issued Written HEP, Safety Issues Teaching Methods: Demonstration Response to Teaching: Verbalize Understanding, Return Demonstration, Reinforcement Needed Discharge Recommendations Therapy D/C Recommendations: Prison Placement Time/GCodes Time In: 1301 Time Out: 1316 Total Billed Treatment Time: 15 Total Billed Treatment 1 visit EVModC 15 min G Codes Necessary: Yes PT/OT Therapy GCodes Therapy Functional Limitation: Physical Therapy Test(s)/Tool used to determine: Level of Assistance Scale Functional Limitation-Current Charge Code: MOBCUR Modifier: CJ Functional Limitation-Goal Charge Code: MOBGOAL Modifier: DEVIN OLIVER PT Oct 03, 2018 13:47
--- NOTE | 2018-10-03 14:23 | Progress Note (SOAP) ---
Subjective Date Seen by a Provider: Oct 03, 2018 Time Seen by a Provider: 14:00 Subjective/Events-last exam Patient seen with Dr. Rodriguez. Family at bedside. Patient reports doing ok but still has right side rib pain. Ambulating with PT. Tolerating diet. No SOB or difficulty breathing. RN reports patient is confused at times. Objective Exam Vital Signs Date Time Temp Pulse Resp B/P (MAP) Pulse Ox O2 Delivery O2 Flow Rate FiO2 10/03/18 12:00 99.3 75 18 132/62 (85) 98 Room Air 10/03/18 08:00 97.5 68 20 169/82 (111) 99 Room Air 10/03/18 08:00 94 Room Air 10/03/18 07:00 95 Room Air 10/03/18 04:00 97.4 74 20 138/76 (96) 97 Room Air 10/03/18 00:00 97.2 69 18 131/71 (91) 96 Room Air 10/02/18 20:04 94 Room Air 10/02/18 20:00 98.1 87 18 136/63 (87) 94 Room Air 10/02/18 20:00 94 Room Air 10/02/18 16:50 99.1 72 18 165/70 (101) 94 Room Air I & O 10/03/18 07:00 Intake Total 260 ml Output Total 401 ml Balance -141 ml Capillary Refill : Less Than 3 Seconds General Appearance: No Apparent Distress, WD/WN Neck: Full Range of Motion, Normal Inspection, Non Tender, Supple Respiratory: Lungs Clear, Normal Breath Sounds, No Accessory Muscle Use, No Respiratory Distress, Other (Pain with palpation over right ribs.) Cardiovascular: Regular Rate, Rhythm, No Edema Gastrointestinal: normal bowel sounds, non tender, soft Extremity: Normal Capillary Refill, Normal Inspection, Normal Range of Motion Neurologic/Psychiatric: Alert, Normal Mood/Affect Skin: Normal Color, Warm/Dry Results Lab Laboratory Tests 10/03/18 04:22: White Blood Count 8.4, Red Blood Count 3.56L, Hemoglobin 10.8L, Hematocrit 32L, Mean Corpuscular Volume 89, Mean Corpuscular Hemoglobin 30, Mean Corpuscular Hemoglobin Concent 34, Red Cell Distribution Width 15.0H, Platelet Count 184, Mean Platelet Volume 9.4, Neutrophils (%) (Auto) 73, Lymphocytes (%) (Auto) 16, Monocytes (%) (Auto) 11, Eosinophils (%) (Auto) 0, Basophils (%) (Auto) 0, Neutrophils # (Auto) 6.1, Lymphocytes # (Auto) 1.4, Monocytes # (Auto) 0.9, Eosinophils # (Auto) 0.0, Basophils # (Auto) 0.0, Sodium Level 139, Potassium Level 3.9, Chloride Level 104, Carbon Dioxide Level 23, Anion Gap 12, Blood Urea Nitrogen 23H, Creatinine 0.97, Estimat Glomerular Filtration Rate 55, BUN/ Creatinine Ratio 24, Glucose Level 110H, Calcium Level 9.0, Corrected Calcium 9.5, Total Bilirubin 0.9, Aspartate Amino Transf (AST/SGOT) 22, Alanine Aminotransferase (ALT/SGPT) 23, Alkaline Phosphatase 61, Total Protein 6.4, Albumin 3.4 Assessment/Plan Assessment/Plan Assess & Plan/Chief Complaint An 82-year-old female involved in a fall with nondisplaced right rib fractures three through seven. Continue with pain meds as needed. Ambulating and deep breathing exercises as well as IS. Atelectasis and pneumonia prophylaxis. Regular diet. 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
[2018-10-03 16:00] VITALS: BP 153/67
--- NOTE | 2018-10-03 19:57 | Consultation (CHS) ---
HPI History of Present Illness: 82 yo admitted after fall in which she suffered rib fractures. Patient laying in bed this AM. States that her pain is well controlled. Denies any shortness of breath, fevers or chills. Source: patient Exam Limitations: no limitations Date seen by provider: Oct 03, 2018 Time Seen by Provider: 10:05 Attending Physician Juan Rodriguez MD PCP Hugo Marie MD Consult Date of Admission Oct 02, 2018 at 11:35 Home Medications Home Medications Reviewed patient Home Medication Reconciliation performed by pharmacy medication reconciliations hospital technician and/or nursing. Patients Allergies have been reviewed. Allergies Coded Allergies: No Known Drug Allergies (Verified , 07/28/16) [id number] Hx Patient Social History Living Status: Lives with son and daughter in law Alcohol Use: Denies Use Recreational Drug Use: No Smoking Status: Never a Smoker Recent Foreign Travel: No Contact w/other who traveled: No Recent Hopitalizations: No Recent Infectious Disease Expo: No Physical Abuse Screen: No Sexual Abuse: No Immunizations Up To Date Tetanus Booster (TDap): Unknown Date of Pneumonia Vaccine: Jul 22, 2017 Date of Influenza Vaccine: Jul 22, 2017 Past Medical History PMHx: HTN HLD PSurgHx: none Family Medical History Significant Family History: No Pertinent Family Hx, Diabetes, Psychiatric Problems Family History: Dementia G8 SISTER Diabetes mellitus 19 FATHER Review of Systems (CHC) Constitutional: no symptoms reported; No chills, No fever EENTM: no symptoms reported Respiratory: no symptoms reported; No cough, No dyspnea on exertion, No short of breath; other (chest pain) Cardiovascular: no symptoms reported; No chest pain, No edema, No palpitations Gastrointestinal: no symptoms reported; No abdominal pain, No nausea, No vomiting Genitourinary: no symptoms reported; No dysuria, No frequency, No hematuria Musculoskeletal: other (chest wall pain) Skin: no symptoms reported Psychiatric/Neurological: Weakness Reviewed Test Results Reviewed Test Results Lab Laboratory Tests Test 10/03/18 04:22 Range/Units White Blood Count 8.4 4.3-11.0 10^3/uL Red Blood Count 3.56 L 4.35-5.85 10^6/uL Hemoglobin 10.8 L 11.5-16.0 G/DL Hematocrit 32 L 35-52 % Mean Corpuscular Volume 89 80-99 FL Mean Corpuscular Hemoglobin 30 25-34 PG Mean Corpuscular Hemoglobin Concent 34 32-36 G/DL Red Cell Distribution Width 15.0 H 10.0-14.5 % Platelet Count 184 130-400 10^3/uL Mean Platelet Volume 9.4 7.4-10.4 FL Neutrophils (%) (Auto) 73 42-75 % Lymphocytes (%) (Auto) 16 12-44 % Monocytes (%) (Auto) 11 0-12 % Eosinophils (%) (Auto) 0 0-10 % Basophils (%) (Auto) 0 0-10 % Neutrophils # (Auto) 6.1 1.8-7.8 X 10^3 Lymphocytes # (Auto) 1.4 1.0-4.0 X 10^3 Monocytes # (Auto) 0.9 0.0-1.0 X 10^3 Eosinophils # (Auto) 0.0 0.0-0.3 10^3/uL Basophils # (Auto) 0.0 0.0-0.1 10^3/uL Sodium Level 139 135-145 MMOL/L Potassium Level 3.9 3.6-5.0 MMOL/L Chloride Level 104 98-107 MMOL/L Carbon Dioxide Level 23 21-32 MMOL/L Anion Gap 12 5-14 MMOL/L Blood Urea Nitrogen 23 H 7-18 MG/DL Creatinine 0.97 0.60-1.30 MG/DL Estimat Glomerular Filtration Rate 55 BUN/Creatinine Ratio 24 Glucose Level 110 H 70-105 MG/DL Calcium Level 9.0 8.5-10.1 MG/DL Corrected Calcium 9.5 8.5-10.1 MG/DL Total Bilirubin 0.9 0.1-1.0 MG/DL Aspartate Amino Transf (AST/SGOT) 22 5-34 U/L Alanine Aminotransferase (ALT/SGPT) 23 0-55 U/L Alkaline Phosphatase 61 40-136 U/L Total Protein 6.4 6.4-8.2 GM/DL Albumin 3.4 3.2-4.5 GM/DL Physical Exam-(CHC) Physical Exam Vital Signs VS - Last 72 Hours, by Label 10/02/18 10/02/18 10/02/18 10/02/18 08:23 11:55 12:04 13:36 Temp 97.9 99.5 Pulse 78 73 69 78 Resp 18 20 20 B/P (MAP) 171/83 (112) 189/81 (117) 177/75 (109) Pulse Ox 99 97 97 99 O2 Delivery Room Air 10/02/18 10/02/18 10/02/18 10/02/18 14:08 16:50 20:00 20:00 Temp 99.1 98.1 Pulse 72 87 Resp 18 18 B/P (MAP) 165/70 (101) 136/63 (87) Pulse Ox 94 94 94 O2 Delivery Room Air Room Air Room Air Room Air 10/02/18 10/03/18 10/03/18 10/03/18 20:04 00:00 04:00 07:00 Temp 97.2 97.4 Pulse 69 74 Resp 18 20 B/P (MAP) 131/71 (91) 138/76 (96) Pulse Ox 94 96 97 95 O2 Delivery Room Air Room Air Room Air Room Air 10/03/18 10/03/18 10/03/18 10/03/18 08:00 08:00 12:00 16:00 Temp 97.5 99.3 98.9 Pulse 68 75 72 Resp 20 18 17 B/P (MAP) 169/82 (111) 132/62 (85) 153/67 (95) Pulse Ox 94 99 98 99 O2 Delivery Room Air Room Air Room Air Room Air Capillary Refill : Less Than 3 Seconds General Appearance: WD/WN, no apparent distress, thin HEENT: PERRL/EOMI Neck: non-tender, full range of motion, supple Respiratory: chest non-tender, lungs clear, normal breath sounds Cardiovascular: normal peripheral pulses, regular rate, rhythm, no murmur Gastrointestinal: normal bowel sounds, non tender, soft Extremities: normal range of motion, non-tender, no pedal edema, no calf tenderness, normal capillary refill Neurologic/Psychiatric: node js developer II-XII nml as tested, no motor/sensory deficits, alert, normal mood/affect, oriented x 3 Skin: normal color, warm/dry Lymphatic: no adenopathy Assessment/Plan Assessment/Plan Admission Status: Observation (1) Multiple fractures of ribs, right side, initial encounter forclosed fracture Status: Acute Assessment & Plan: -10/03- Started PO pain medication, OOB and ambulation, Checking Vit D, Needs DEXA scan as outpatient (2) Nondisplaced fracture of fifth left metatarsal bone Status: Acute Qualifiers: Qualified Codes: S92.355A - Nondisplaced fracture of fifth metatarsal bone, left foot, initial encounter for closed fracture (3) Debility Status: Acute Assessment & Plan: - PT/OT ordered (4) Advanced age Status: Acute Clinical Quality Measures DVT/VTE Risk/Contraindication: Risk Factor Score Per Nursin RFS Level Per Nursing on Admit: 4+=Very High Copy Copies To 1: ABISAI CHANEL MD Oct 03, 2018 19:57
[2018-10-03 20:10] VITALS: BP 150/70
[2018-10-04] VITALS: BP 140/67
[2018-10-04] MEDS: ACETAMINOPHEN 325 MG TABLET PO PRN (04:14)
[2018-10-04] MEDS: NS IV 1000 ML 1,000 ML IV SCH (05:29)
[2018-10-04 06:13] VITALS: BP 140/66
[2018-10-04] MEDS: RT-ALBUTEROL/IPRATROPIUM 3 ML (DUONEB) VIAL INH SCH (07:08)
[2018-10-04 07:26] LABS: BASOPHILS % (AUTO) 0 % (0-10); EOSINOPHILS % (AUTO) 0 % (0-10); HEMATOCRIT 31 % (35-52); HEMOGLOBIN 10.3 G/DL (11.5-16.0); LYMPHOCYTES # (AUTO) 1.4 X 10^3 (1.0-4.0); LYMPHOCYTES % (AUTO) 17 % (12-44); MEAN CORPUSCULAR HEMOGLOBIN 30 PG (25-34); MEAN CORPUSCULAR HGB CONC 33 G/DL (32-36); MEAN CORPUSCULAR VOLUME 89 FL (80-99); MEAN PLATELET VOLUME 9.4 FL (7.4-10.4); MONOCYTES # (AUTO) 0.9 X 10^3 (0.0-1.0); MONOCYTES % (AUTO) 11 % (0-12); NEUTROPHILS # (AUTO) 5.8 X 10^3 (1.8-7.8); NEUTROPHILS % (AUTO) 72 % (42-75); PLATELET COUNT 178 10^3/uL (130-400); RED BLOOD COUNT 3.48 10^6/uL (4.35-5.85); RED CELL DISTRIBUTION WIDTH 15.1 % (10.0-14.5); WHITE BLOOD COUNT 8.1 10^3/uL (4.3-11.0)
[2018-10-04 07:52] LABS: CALCIUM 8.4 MG/DL (8.5-10.1); CREATININE SERUM 0.93 MG/DL (0.60-1.30); POTASSIUM 3.5 MMOL/L (3.6-5.0)
[2018-10-04 08:36] VITALS: BP 169/70
--- NOTE | 2018-10-04 10:53 | Progress Note (SOAP) ---
Subjective Date Seen by a Provider: Oct 04, 2018 Time Seen by a Provider: 10:00 Subjective/Events-last exam doing well. ambulating well. pain controlled with PO pain meds. still having mild difficulty with deep inspiration and IS. tolerating reg diet. Objective Exam Vital Signs Date Time Temp Pulse Resp B/P (MAP) Pulse Ox O2 Delivery O2 Flow Rate FiO2 10/04/18 08:36 97.8 79 18 169/70 (103) 98 Room Air 10/04/18 08:00 Room Air 10/04/18 07:08 95 Room Air 10/04/18 06:13 140/66 (90) 10/04/18 04:00 98.9 73 16 97 Room Air 10/04/18 00:00 98.4 81 18 140/67 (91) 94 Room Air 10/03/18 21:40 96 Room Air 10/03/18 20:10 98.9 78 18 150/70 (96) 97 Room Air 10/03/18 20:00 Room Air 10/03/18 16:00 98.9 72 17 153/67 (95) 99 Room Air 10/03/18 12:00 99.3 75 18 132/62 (85) 98 Room Air I & O 10/04/18 06:59 Intake Total 2110 ml Balance 2110 ml Capillary Refill : Less Than 3 SecondsLess Than 3 Seconds General Appearance: No Apparent Distress HEENT: PERRL/EOMI Neck: Full Range of Motion Respiratory: Decreased Breath Sounds Cardiovascular: Regular Rate, Rhythm Gastrointestinal: normal bowel sounds, non tender, soft Extremity: Normal Capillary Refill Neurologic/Psychiatric: Alert, Oriented x3 Skin: Normal Color Lymphatic: No Adenopathy Results Lab Laboratory Tests 10/04/18 06:34: White Blood Count 8.1, Red Blood Count 3.48L, Hemoglobin 10.3L, Hematocrit 31L, Mean Corpuscular Volume 89, Mean Corpuscular Hemoglobin 30, Mean Corpuscular Hemoglobin Concent 33, Red Cell Distribution Width 15.1H, Platelet Count 178, Mean Platelet Volume 9.4, Neutrophils (%) (Auto) 72, Lymphocytes (%) (Auto) 17, Monocytes (%) (Auto) 11, Eosinophils (%) (Auto) 0, Basophils (%) (Auto) 0, Neutrophils # (Auto) 5.8, Lymphocytes # (Auto) 1.4, Monocytes # (Auto) 0.9, Eosinophils # (Auto) 0.0, Basophils # (Auto) 0.0, Sodium Level 139, Potassium Level 3.5L, Chloride Level 107, Carbon Dioxide Level 22, Anion Gap 10, Blood Urea Nitrogen 16, Creatinine 0.93, Estimat Glomerular Filtration Rate 58, BUN/ Creatinine Ratio 17, Glucose Level 100, Calcium Level 8.4L Assessment/Plan Assessment/Plan Assess & Plan/Chief Complaint same level fall with right non-displaced rib fx 3-7. increase ambulation and IS. home when logistically able. Clinical Quality Measures DVT/VTE Risk/Contraindication: Risk Factor Score Per Nursin RFS Level Per Nursing on Admit: 4+=Very High LARA BARRIOS MD Oct 04, 2018 10:53
--- NOTE | 2018-10-04 10:55 | Physical Therapy Daily Note ---
PT Daily Note-Current Subjective Patient agrees to PT. No c/o. Pain Numeric Pain Scale: 0-No Pain Location: No Pain Reported Mental Status Patient Orientation: Confused Attachments: IV Transfers Therapy Code Descriptions/Definitions Functional Floyd Measure: 0=Not Assessed/NA 4=Minimal Assistance 1=Total Assistance 5=Supervision or Setup 2=Maximal Assistance 6=Modified Floyd 3=Moderate Assistance 7=Complete Floyd Therapy Quality Codes: 6 Independent with activity with or without an assistive device 5 Patient requires set up or clean up by helper. Patient completes activity by themselves 4 Supervision or touching assist (CGA). [place] provide cues , steadying assist 3 The helper provides less than half the effort to complete the activity 2 The helper provides more than half the effort to complete the activity 1 Dependent. The helper does all the effort to complete an activity 7 Patient refused to complete or attempt activity 9 The patient did not perform the activity before the current illness or injury 88 Not attempted due to Medical conditions or safety concerns Transfers (B, C, W/C) (FIM): 5 Scootin Rollin Supine to/from Sit: 5 Sit to/from Stand: 5 Bed to/from Chair: 5 Weight Bearing Right Lower Extremity: Right Weight Bearing/Tolerated Left Lower Extremity: Left Weight Bearing/Tolerated Gait Training Gait (FIM): 5 Distance (FIM): 3=150 ft Distance: 250' Gait Level of Assist: 5 Gait Assistive Device: FWW instruction for body placement in FWW/noted extended UE's with use Assessment Patient tolerated treatment well and is up in recliner with chair alarm activated. 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 Time Frame: Oct 12, 2018 Transfers (B,C,W/C) (FIM): 6 Gait (FIM): 5 Gait distance (FIM): 3=150 ft Distance: 250' Gait Level of Assist: 5 Gait Assistive Device: FWW PT Plan Treatment/Plan Treatment Plan: Continue Plan of Care Treatment Plan: Education, Functional Activity Romario, Functional Strength, Gait , Safety, Therapeutic Exercise, Transfers Treatment Duration: Oct 12, 2018 Frequency: 6 times per week Estimated Hrs Per Day: .25 hour per day Patient and/or Family Agrees t: Yes Time/GCodes Time In: 1005 Time Out: 1015 Total Billed Treatment Time: 10 Total Billed Treatment 1 visit GT 10 min PT/OT Therapy GCodes Therapy Functional Limitation: Physical Therapy Test(s)/Tool used to determine: Level of Assistance Scale Functional Limitation-Current Charge Code: MOBCUR Modifier: VIRIDIANA Functional Limitation-Goal Charge Code: MOBGOPHOEBE Modifier: CI Functional Limitation-D/C Charge Codes: MOBDC Modifier: DEVIN CUBA PT Oct 04, 2018 10:55
[2018-10-04 12:00] VITALS: BP 150/75
[2018-10-04] MEDS ORDERED: ACET-1783 PO (14:43)
--- NOTE | 2018-10-04 14:45 | Discharge Inst-Surgical ---
D/C Lap Instructions-DENIS Follow Up Appt in 2 weeks Activity as tolerated, ambulate as much as possible. Incentive Spirometry use every 2 hours while awake Regular Diet Symptoms to Report: Fever over 101 degree F, Nausea/Vomiting Infection Signs and Symptoms to report: Increased redness, Foul odor of wound, Increased drainage Bathing instructions: May shower Operative Area Clean/Dry; Keep incision clean/dry If any problems/questions: Contact your physician or go to Emergency Room LARA BARRIOS MD Oct 04, 2018 14:45
[2018-10-04 16:00] VITALS: BP 145/68
--- NOTE | 2018-10-04 16:03 | Progress Note (SOAP) ---
Subjective Subjective/Events-last exam Patient sitting up in chair. States that pain is well controlled. Walking with PT well. Patient stable to d/c when ok with primary Review of Systems Date Seen by Provider: Oct 04, 2018 Time Seen by Provider: 10:15 Pulmonary: No Dyspnea, No Cough Cardiovascular: Other (chest wall pain) Gastrointestinal: No: Nausea, Vomiting Musculoskeletal: No: neck pain, back pain Neurological: Weakness Objective Exam Last Set of Vital Signs Vital Signs Date Time Temp Pulse Resp B/P (MAP) Pulse Ox O2 Delivery O2 Flow Rate FiO2 10/04/18 12:00 99.1 76 20 150/75 (100) 98 Room Air Capillary Refill : Less Than 3 SecondsLess Than 3 Seconds I&O Intake and Output 10/04/18 00:00 Intake Total 960 ml Output Total 1 ml Balance 959 ml Intake Oral 960 ml Output Urine Total 1 ml # Voids 8 General: Alert, Cooperative Lungs: Clear to Auscultation, Normal Air Movement Heart: Regular Rate, No Murmurs, Other (chest wall pain) Abdomen: Normal Bowel Sounds, Soft, No Tenderness, No Masses Extremities: No Edema, No Tenderness/Swelling Results/Procedures Lab Laboratory Tests 10/04/18 06:34: White Blood Count 8.1, Red Blood Count 3.48L, Hemoglobin 10.3L, Hematocrit 31L, Mean Corpuscular Volume 89, Mean Corpuscular Hemoglobin 30, Mean Corpuscular Hemoglobin Concent 33, Red Cell Distribution Width 15.1H, Platelet Count 178, Mean Platelet Volume 9.4, Neutrophils (%) (Auto) 72, Lymphocytes (%) (Auto) 17, Monocytes (%) (Auto) 11, Eosinophils (%) (Auto) 0, Basophils (%) (Auto) 0, Neutrophils # (Auto) 5.8, Lymphocytes # (Auto) 1.4, Monocytes # (Auto) 0.9, Eosinophils # (Auto) 0.0, Basophils # (Auto) 0.0, Sodium Level 139, Potassium Level 3.5L, Chloride Level 107, Carbon Dioxide Level 22, Anion Gap 10, Blood Urea Nitrogen 16, Creatinine 0.93, Estimat Glomerular Filtration Rate 58, BUN/ Creatinine Ratio 17, Glucose Level 100, Calcium Level 8.4L Assessment/Plan Assessment/Plan (1) Multiple fractures of ribs, right side, initial encounter forclosed fracture Status: Acute Assessment & Plan: -10/03- Started PO pain medication, OOB and ambulation, Checking Vit D, Needs DEXA scan as outpatient 10/04- Ok to discharge when ok with primary (2) Nondisplaced fracture of fifth left metatarsal bone Status: Acute Qualifiers: Qualified Codes: S92.355A - Nondisplaced fracture of fifth metatarsal bone, left foot, initial encounter for closed fracture (3) Debility Status: Acute Assessment & Plan: - PT/OT ordered (4) Advanced age Status: Acute Clinical Quality Measures DVT/VTE Risk/Contraindication: Risk Factor Score Per Nursin RFS Level Per Nursing on Admit: 4+=Very High ABISAI WHARTON MD Oct 04, 2018 16:03
[2018-10-04 17:00] VITALS: BP 145/68
[2018-10-04] MEDS ORDERED: QUEtiapine 25 MG (SEROquel) TAB IMMEDIATE RELEASE PO SCH (21:00)
[2018-10-04] MEDS ORDERED: QUETIAPINE FUMARATE 50 MG PO SCH (21:00)
[2018-10-05] MEDS ORDERED: NON-FORMULARY MEDICATION 1 EA EA (Escitalopram Oxalate (Lexapro) 10 MG) PO SCH (09:00)
== END 2018-10-04 14:45 | disposition home or self-care (01) ==
LOC: ER 08:06 → EDUNIT# 08:06 → UNDOADMOB 11:35 → 4TH 11:35
PROVIDERS: ADMIT Surgery; ATTEND Surgery
DX: S22.41XA Multiple fractures of ribs, right side, initial encounter for closed fracture (principal); S06.9X9A Unspecified intracranial injury with loss of consciousness of unspecified duration, initial encounter; S92.355A Nondisplaced fracture of fifth metatarsal bone, left foot, initial encounter for closed fracture; I10 Essential (primary) hypertension; E78.5 Hyperlipidemia, unspecified; M21.612 Bunion of left foot; E03.9 Hypothyroidism, unspecified; R54 Age-related physical debility; W18.09XA Striking against other object with subsequent fall, initial encounter; Y92.019 Unspecified place in single-family (private) house as the place of occurrence of the external cause; Z79.82 Long term (current) use of aspirin; Z79.899 Other long term (current) drug therapy
CPT/HCPCS: 36415; 70450; 71045; 71260; 72125; 73630; 74177; 80048; 80053; 81000; 82652; 85025; 94640; 94664; 94760

== ENCOUNTER 2018-10-21 07:07 | Inpatient (IN) | payer MEDICARE, OTHER, MEDICAID ==
[~2018-10-21] VITALS: Ht 162.6 cm; Wt 51.5 kg
[~2018-10-21 07:07] MED LIST changes: +ACET-1783 PO; +ESCI10TA PO; +QUET50TA49 PO
--- OUTSIDE RECORDS SUMMARY | 2018-10-21 07:12 | XMS REPORT | Clinical Summary ---
Author Author [facility] Organization [facility] Address Unknown Phone Unavailable Care Team Providers Care Hand Compositor Name Role Phone Jose M Miranda MD Unavailable Unavailable Source Comments Some departments are not documenting in the electronic medical record. If you do not see the information that you expected, contact Release of Information in the Health Information Management department at [phone] for further assistance in locating additional records.[facility] Allergies No Known Allergies Medications End Date Status Medication Sig Dispensed Refills Start Date Active acetaminophen (TYLENOL) Take 325 mg 0 325 mg tablet by mouth twice daily. Active IBUPROFEN PO Take by 0 mouth daily. Active aspirin EC 81 mg tablet Take 81 mg by 0 mouth daily. Active Coenzyme Q10 (CO Q-10) 10 Take by 0 mg cap mouth daily. Active magnesium oxide 400 mg Take by 0 cap mouth daily. Active nebivolol (BYSTOLIC) 5 mg Take 5 mg by 0 tablet mouth daily. Active lisinopril (PRINIVIL, Take 40 mg by 0 ZESTRIL) 40 mg tablet mouth daily. Active citalopram (CELEXA) 20 mg Take 20 mg by 0 tablet mouth daily. Active simvastatin (ZOCOR) 20 mg Take 20 mg by 0 tablet mouth at bedtime daily. 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 Last Filed Vital Signs Time Taken Vital Sign Reading 03/30/2016 2:13 PM CDT Blood Pressure 125/68 03/30/2016 2:13 PM CDT Pulse 61 - Temperature - - Respiratory Rate - - Oxygen Saturation - - Inhaled Oxygen - Concentration 03/30/2016 2:13 PM CDT Weight 57.2 kg (126 lb) 03/30/2016 2:13 PM CDT Height 162.6 cm (5' 4") 03/30/2016 2:13 PM CDT Body Mass Index 21.63 Plan of Treatment Health Maintenance Due Date Last Done Comments PHYSICAL (COMPREHENSIVE) 1941 EXAM DTAP/TDAP VACCINES (1 - 1952 Tdap) SHINGLES RECOMBINANT 1984 VACCINE (1 of 2) OSTEOPOROSIS 1999 SCREENING/MONITORING PNEUMONIA (PCV13/PPSV23) 1999 VACCINES (1 of 2 - PCV13) INFLUENZA VACCINE 05/22/2018 Results Not on filefrom Last 3 Months Insurance Payer Benefit Subscriber ID Type Phone Address Plan / Group MEDICARE MEDICARE xxxxxxxxxx Medicare PART A AND B Advance Directives Patient has advance care planning documents on file. For more information, please contact: [facility] [address] [place] [address]
--- OUTSIDE RECORDS SUMMARY | 2018-10-21 07:13 | XMS REPORT ---
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 90959940 Problem Psychosis, unspecified psychosis type F29 Active 04590052 Problem 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 Active 98755519 Problem Unspecified dementia without behavioral disturbance F03.90 Active 03080555 Problem Hallucinations R44.3 Active 7724613 ALLERGIES No Known Allergies ENCOUNTERS Encounter Location Date Diagnosis [facility] [address] [address] Jun, [facility] [id number] [place] [address] Jun, Unspecified injury of left ankle, initial encounter S99.912A and Unspecified injury of left foot, initial encounter S99.922A [facility] [id number] [place] [address] Jun, Hallucinations R44.3 [facility] [address] [address] May, [facility] [address] [address] May, Hallucinations R44.3 ; Hypertension I10 and Toe pain, right M79.674 [facility] [id number] [place] [address] Apr, Hallucinations R44.3 ; 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 and Toe pain, right M79.674 [facility] [id number] [place] [address]274- [address]206 Mar, [facility] [id number] [place] [address]86- 130[address] Mar, Hallucinations R44.3 [facility] [id number] [place] [address] Mar, [facility] [id number] [place] [address] Mar, Delusional disorder F22 and Psychosis, unspecified psychosis type F29 [facility] [id number] [place] [address] 6[address]07- 235[address] Mar, [facility] [id number] [place] [address] 8[address]26- [address] Mar, [facility] [id number] [place] [address] February, Local infection of the skin and subcutaneous tissue, unspecified L08.9 and Other injury of unspecified body region, initial encounter T14.8XXA [facility] [id number] [place] [address] February, [facility] [id number] [place] [address] 60647- [address] February, [facility] [id number] [place] [address] Jan, Hallucinations R44.3 [facility] [id number] [place] [address] 11542- [address] Dec, Psychosis, unspecified psychosis type F29 [facility] [id number] [place] [address]60- [address] 15 Dec, 2017 [facility] [address] [address] Dec, [facility] [id number] [place] [address]10[address] Nov, Unspecified dementia without behavioral disturbance F03.90 and 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 [facility] [id number] [place] [address] 6[address]87- [address]7 Oct, [facility] [id number] [place] [address] 7[address]- [address] Oct, [facility] [id number] [place] [address] 22842- 8923 Oct, [facility] [id number] [place] [address] 16427- 8127 Oct, Dementia, unspecified, without behavioral disturbance F03.90 [facility] [address], [place] [address] Sep, Medicare annual wellness visit, initial Z00.00 and Encounter for immunization Z23 [place] [id number] [place] [address] Aug, 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 and Hallucinations R44.3 [place] [id number] [place] [address] 8[address]- [address] Aug, [facility] [id number] [place] [address] 64[address]- 29[address] Jul, Encounter for immunization Z23 [facility] [id number] [place] [address]- [address] Jun, Hallucinations R44.3 [facility] [id number] [place] [address] 38124- 7303 Jun, Hallucinations R44.3 [facility] [id number] [place] [address] 4[address]- 8[address] May, Arthralgia of left knee M25.562 ; Age-related nuclear cataract of both eyes H25.13 and Hallucinations R44.3 [facility] [address] [address] May, [facility] [address] [address] May, [facility] [address] [address] Mar, Hyperlipidemia E78.5 and Hypertension I10 [place] [address] [address] Mar, Hyperlipidemia E78.5 and Hypertension I10 [place] [address] [address] Mar, [facility] [address] [address] Nov, Hypertension I10 ; 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 ; 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 and 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 [place] [address] [address] Aug, [place] [address] [address] Aug, [facility] [address] [address] Aug, Hypertension I10 and 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 [facility] [id number] [place] [address] 77547- 76[address] Jul, [facility] [address] [address] Jun, [facility] [address] [address] Jun, [facility] [address] [address]- [address] Jun, [facility] [id number] [place] [address] 9[address]- 29[address] Jun, [facility] [id number] [place] [address] 36551- 6[address] 16 Jun, 2016 [facility] [id number] [place] [address] May, Urinary frequency R35.0 and Acute cystitis without hematuria N30.00 [facility] [id number] [place] [address] 16131- [address] Jan, [facility] [id number] [place] [address] 34582- 9317 Jan, [facility] [id number] [place] [address] 39582- 1565 Dec, Hyperlipidemia E78.5 [place] [id number] [place] [address]- [address] Dec, 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 ; Hyperlipidemia E78.5 and Hypertension I10 [facility] [id number] [place] [address] 08140- [address] Nov, [facility] [id number] [place] [address] 8[address]96- [address] Aug, 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 ; Senile cataracts of both eyes H25.9 and Constipation, unspecified constipation type K59.00 [facility] [id number] [place] [address] 8[address]15- [address] Jun, Unspecified psychosis 298.9 and 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 [facility] [id number] [place] [address] 6[address]10- [address]341 Jun, 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 [facility] [id number] [place] [address] 17230- 8850 May, Dementia 294.20 [facility] [address] [place] [address] May, 2015 Establishing care with new doctor, encounter for V65.8 ; Ataxia 781.3 ; Horizontal nystagmus 379.56 ; Hypertension 401.9 ; Hyperlipidemia 272.4 and History of TIA (transient ischemic attack) V12.54 [facility] [address] [facility] [id number] [address] May, [facility] [address] [facility] [id number] [address] May, IMMUNIZATIONS No Known Immunizations SOCIAL HISTORY Never Assessed REASON FOR VISIT left foot pain since sunday am. was using her walker et fell inside the house. desire PLAN OF CARE Activity Details Follow Up pending xray results Reason:left ankle injury VITAL SIGNS Height 64 in 2018-07-02 Weight 116.2 lbs 2018-07-02 Temperature 98.7 degrees Fahrenheit 2018-07-02 Heart Rate 90 bpm 2018-07-02 Respiratory Rate 20 2018-07-02 BMI 19.94 kg/m2 2018-07-02 Blood pressure systolic 126 mmHg 2018-07-02 Blood pressure diastolic 78 mmHg 2018-07-02 MEDICATIONS Medication Instructions Dosage Frequency Start Date End Date Duration Status Baby Aspirin 81 MG Orally Once a day 24h Active Lexapro 10 mg Orally Once a day 1 tablet 24h Mar, 90 days Active Vitamin D 1000 UNIT Orally Once a day 1 tablet 24h Active Fish Oil 1000 MG Orally Twice a day 1 capsule 12h Active Seroquel XR 50 mg Orally Once a day 1 tablet at bedtime 24h May, 30 days Active RESULTS Name Result Date Reference Range Xray : Ankle, Left, 3 views (IN HOUSE) 2018-07-02 Xray : Foot, Left 3 views (IN HOUSE) 2018-07-02 PROCEDURES Procedure Date Ordered Result Body Site X-RAY EXAM OF ANKLE Jul 02, 2018 X-RAY EXAM OF FOOT Jul 02, 2018 [facility] VISIT ESTABLISHED PATIENT Jul 02, 2018 INSTRUCTIONS MEDICATIONS ADMINISTERED No Known Medications [...] left hip pain, age-indeterminate pubic rami fracture-- [facility] 07/07/16
--- OUTSIDE RECORDS SUMMARY | 2018-10-21 07:13 | XMS REPORT ---
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 [id number] [place] [address] 84529 -3698 Jun, Unspecified injury of left ankle, initial encounter S99.912A and Unspecified injury of left foot, initial encounter S99.922A [facility] [address] 39729- 8777 Jun, Hallucinations R44.3 [facility] [id number] [place] [address] 68105- 2396 May, [facility] [address] 05915- 7510 May, Hallucinations R44.3 ; Hypertension I10 and Toe pain, right M79.674 [facility] [address] 50813- 8274 Apr, Hallucinations R44.3 ; 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 and Toe pain, right M79.674 [facility] [address] 52171- 7347 Mar, [facility] [id number] [place] [address] 80807- 7325 Mar, Hallucinations R44.3 [place] [address] 82516- 4473 Mar, [place] [id number] [place] [address] 96959- 7073 Mar, Delusional disorder F22 and Psychosis, unspecified psychosis type F29 [facility] [id number] [place] [address] 76572- 7225 Mar, [facility] [id number] [place] [address] 42108- 5879 Mar, [facility] [id number] [place] [address] 98707- 6698 February, Local infection of the skin and subcutaneous tissue, unspecified L08.9 and Other injury of unspecified body region, initial encounter T14.8XXA [facility] [id number] [place] [address] 49536- 7701 February, [facility] [id number] [place] [address] 41249- 6414 February, [facility] [id number] [place] [address] 94663- 1392 Jan, Hallucinations R44.3 [facility] [id number] [place] [address] 56333- 4687 Dec, Psychosis, unspecified psychosis type F29 [facility] [address] [address] 3320 15 Dec, 2017 [facility] [id number] [place] [address] 82328- 9580 Dec, [facility] [id number] [place] [address] 83931- 7132 Nov, Unspecified dementia without behavioral disturbance F03.90 and 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 [facility] [id number] [place] [address] 36104- 7787 Oct, [facility] [id number] [place] [address] 29752- 5899 Oct, [facility] [id number] [place] [address] 25052- 7722 Oct, [facility] [id number] [place] [address] 69496- 9938 Oct, Dementia, unspecified, without behavioral disturbance F03.90 [facility] [id number] [place] [address] 57497- 7683 Sep, Medicare annual wellness visit, initial Z00.00 and Encounter for immunization Z23 [facility] [id number] [place] [address] 98547- 2969 Aug, 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 and Hallucinations R44.3 [facility] [id number] [place] [address] 86475- 5728 Aug, [facility] [id number] [place] [address] 67987- 8414 Jul, Encounter for immunization Z23 [facility] [id number] [place] [address] 03749- 0322 Jun, Hallucinations R44.3 [facility] [id number] [place] [address] 98340- 4087 05 Jun, 2017 Hallucinations R44.3 [facility] [id number] [place] [address] 97553- 1014 May, Arthralgia of left knee M25.562 ; Age-related nuclear cataract of both eyes H25.13 and Hallucinations R44.3 [facility] [id number] [place] [address] 55921- 0075 May, [facility] [address] 16431- 9115 May, [facility] [id number] [place] [address] 04826- 9631 Mar, Hyperlipidemia E78.5 and Hypertension I10 [place] [id number] [place] [address] 25198- 9274 Mar, Hyperlipidemia E78.5 and Hypertension I10 [place] [address] 90249- 4010 Mar, [facility] [id number] [place] [address] 58934- 2953 Nov, Hypertension I10 ; 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 ; 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 and 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 [place] [id number] [place] [address] 33092- 1477 14 Aug, 2016 [facility] [id number] [place] [address] 17288- 6184 Aug, [facility] [id number] [place] [address] 65087- 0008 Aug, Hypertension I10 and 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 [place] [address] 14354- 3046 Jul, [place] [id number] [place] [address] 65634- 0974 Jun, [facility] [address] 65499- 9924 Jun, [facility] [address] [place] [address] 29053- 0846 Jun, [facility] [id number] [place] [address] 61612- 5948 Jun, [facility] [id number] [place] [address] 59401- 7152 16 Jun, [address] [facility] [id number] [place] [address] 94017 -8461 May, Urinary frequency R35.0 and Acute cystitis without hematuria N30.00 [facility] [id number] [place] [address] 47206- 7408 Jan, [facility] [id number] [place] [address] 49659- 1675 Jan, [facility] [id number] [place] [address] 17605- 0845 Dec, Hyperlipidemia E78.5 [facility] [id number] [place] [address] 10609- 9771 Dec, 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 ; Hyperlipidemia E78.5 and Hypertension I10 [facility] [id number] [place] [address] 29284- 4671 Nov, [facility] [id number] [place] [address] 51396- 2246 Aug, 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 ; Senile cataracts of both eyes H25.9 and Constipation, unspecified constipation type K59.00 [facility] [id number] [place] [address] 41678- 5303 Jun, Unspecified psychosis 298.9 and 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 [facility] [id number] [place] [address] 54990- 3608 02 Jun, 2015 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 [facility] [id number] [address]- 6545 May, Dementia 294.20 [facility] [id number] [address]- 2249 May, Establishing care with new doctor, encounter for V65.8 ; Ataxia 781.3 ; Horizontal nystagmus 379.56 ; Hypertension 401.9 ; Hyperlipidemia 272.4 and History of TIA (transient ischemic attack) V12.54 [place] [id number] [address]- 7180 May, [place] [address] [facility] [id number] [address]- 0135 May, IMMUNIZATIONS No Known Immunizations SOCIAL HISTORY Never Assessed REASON FOR VISIT Requests Provider to return call PLAN OF CARE VITAL SIGNS [...] left hip pain, age-indeterminate pubic rami fracture-- [facility] 07/07/16
--- OUTSIDE RECORDS SUMMARY | 2018-10-21 07:13 | XMS REPORT ---
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 57905523 Problem Psychosis, unspecified psychosis type F29 Active 46250691 Problem 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 Active 72583190 Problem Unspecified dementia without behavioral disturbance F03.90 Active 51634120 Problem Hallucinations R44.3 Active 4423294 ALLERGIES No Known Allergies ENCOUNTERS Encounter Location Date Diagnosis [facility] [id number] [place] [address] 31098- 7924 Jun, [facility] [id number] [place] [address] 49364 -0670 Jun, Unspecified injury of left ankle, initial encounter S99.912A and Unspecified injury of left foot, initial encounter S99.922A [facility] [address], [place] [address]- 8323 Jun, Hallucinations R44.3 [facility] [id number] [place] [address] 48141- 1068 May, [facility] [id number] [place] [address] 15423- 1380 May, Hallucinations R44.3 ; Hypertension I10 and Toe pain, right M79.674 [facility] [id number] [place] [address] 93054- 1320 Apr, Hallucinations R44.3 ; 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 and Toe pain, right M79.674 [facility] [id number] [place] [address] 06934- 3863 Mar, [facility] [address] 16701- 5589 Mar, Hallucinations R44.3 [facility] [id number] [place] [address] 28056- 5326 Mar, [facility] [id number] [place] [address] 22292- 6514 Mar, Delusional disorder F22 and Psychosis, unspecified psychosis type F29 [facility] [id number] [place] [address] 12894- 4441 Mar, [facility] [id number] [place] [address] 75447- 6887 Mar, [facility] [id number] [place] [address] 25151- 1747 February, Local infection of the skin and subcutaneous tissue, unspecified L08.9 and Other injury of unspecified body region, initial encounter T14.8XXA [facility] [id number] [place] [address] 16630- 7351 February, [facility] [id number] [place] [address] 32857- 4954 February, [facility] [id number] [place] [address] 24748- 1394 Jan, Hallucinations R44.3 [facility] [id number] [place] [address] 64987- 7148 Dec, Psychosis, unspecified psychosis type F29 [facility] [id number] [place] [address] 94731- 3420 15 Dec, 2017 [facility] [address], [place] [address]- 3835 Dec, [facility] [address] 2406 Nov, Unspecified dementia without behavioral disturbance F03.90 and 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 [facility] [id number] [place] [address] 32870- 2520 Oct, [facility] [address], [place] [address]- 3583 Oct, [facility] [address] [place] [address] 71217- 6764 Oct, [facility] [id number] [place] [address] 53050- 5012 Oct, Dementia, unspecified, without behavioral disturbance F03.90 [facility] [address], [place] [address]- 9813 Sep, Medicare annual wellness visit, initial Z00.00 and Encounter for immunization Z23 [place] [address] [place] [address] 85530- 7500 Aug, 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 and Hallucinations R44.3 [place] [address], [place] [address]- 2319 Aug, [facility] [id number] [place] [address] 70643- 2328 Jul, Encounter for immunization Z23 [facility] [address] [place] [address] 52508- 1408 Jun, Hallucinations R44.3 [facility] [id number] [place] [address] 11247- 2148 Jun, Hallucinations R44.3 [facility] [id number] [place] [address] 49264- 9187 May, Arthralgia of left knee M25.562 ; Age-related nuclear cataract of both eyes H25.13 and Hallucinations R44.3 [facility] [address] 49501- 5493 May, [facility] [id number] [place] [address] 58861- 0080 May, [facility] [address] 54435- 9352 Mar, Hyperlipidemia E78.5 and Hypertension I10 [place] [address] 00148- 1421 Mar, Hyperlipidemia E78.5 and Hypertension I10 [place] [id number] [place] [address] 81320- 0378 Mar, [facility] [address] 51518- 9452 Nov, Hypertension I10 ; 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 ; 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 and 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 [facility] [id number] [place] [address] 81196- 5055 Aug, [facility] [id number] [place] [address] 84960- 7807 Aug, [facility] [address] 12243- 0853 Aug, Hypertension I10 and 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 [facility] [id number] [place] [address] 53855- 3469 Jul, [facility] [address] 41586- 7723 Jun, [facility] [id number] [place] [address] 10572- 8430 Jun, [facility] [address] 37995- 2006 Jun, [facility] [address] [place] [address] 76585- 1799 Jun, [facility] [id number] [place] [address] 54288- 5374 16 Jun, 2016 [facility] [id number] [place] [address] 33240 -6391 May, Urinary frequency R35.0 and Acute cystitis without hematuria N30.00 [facility] [id number] [place] [address] 79905- 9438 Jan, [facility] [id number] [place] [address] 80053- 9923 Jan, [facility] [id number] [place] [address] 13119- 2180 Dec, Hyperlipidemia E78.5 [place] [id number] [place] [address] 12798- 5497 Dec, 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 ; Hyperlipidemia E78.5 and Hypertension I10 [facility] [id number] [place] [address] 75523- 2451 Nov, [facility] [address] [place] [address] 89786- 1703 Aug, 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 ; Senile cataracts of both eyes H25.9 and Constipation, unspecified constipation type K59.00 [facility] [address] [place] [address] 96480- 9887 Jun, Unspecified psychosis 298.9 and 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 [place] [id number] [place] [address] 70058- 3240 Jun, 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 [facility] [id number] [place] [address] 50675- 6167 May, Dementia 294.20 [facility] [address] [address]- 9076 13 May, 2015 Establishing care with new doctor, encounter for V65.8 ; Ataxia 781.3 ; Horizontal nystagmus 379.56 ; Hypertension 401.9 ; Hyperlipidemia 272.4 and History of TIA (transient ischemic attack) V12.54 [facility] [address] [facility] [id number] [address]- [address] May, [place] [address] [facility] [id number] [address]- 9422 May, IMMUNIZATIONS No Known Immunizations SOCIAL HISTORY Never Assessed REASON FOR VISIT f/u after starting new medications--ABoYenny PLAN OF CARE Activity Details Follow Up 3 Months Reason:hallucinations VITAL SIGNS Height 64 in 2018-06-25 Weight 118.2 lbs 2018-06-25 Temperature 97.6 degrees Fahrenheit 2018-06-25 Heart Rate 100 bpm 2018-06-25 Respiratory Rate 18 2018-06-25 BMI 20.29 kg/m2 2018-06-25 Blood pressure systolic 140 mmHg 2018-06-25 Blood pressure diastolic 80 mmHg 2018-06-25 MEDICATIONS Medication Instructions Dosage Frequency Start Date End Date Duration Status Seroquel XR 50 mg Orally Once a day 1 tablet at bedtime 24h May, 30 days Active Lexapro 10 mg Orally Once a day 1 tablet 24h Mar, 90 days Active Vitamin D 1000 UNIT Orally Once a day 1 tablet 24h Active Baby Aspirin 81 MG Orally Once a day 24h Active Fish Oil 1000 MG Orally Twice a day 1 capsule 12h Active RESULTS No Results PROCEDURES Procedure Date Ordered Result Body Site [facility] VISIT ESTABLISHED PATIENT Jun 25, 2018 INSTRUCTIONS MEDICATIONS ADMINISTERED No Known Medications [...] left hip pain, age-indeterminate pubic rami fracture-- [facility] 07/07/16
--- OUTSIDE RECORDS SUMMARY | 2018-10-21 07:13 | XMS REPORT ---
Author Author TRISHA SERRANO Organization 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 [id number] [place] [address] 45553- 1596 Sep, [facility] [id number] [place] [address] 31498- 0871 Sep, [facility] [id number] [place] [address] 07216- 5605 Jun, [facility] [id number] [place] [address] 80490 -6044 Jun, Unspecified injury of left ankle, initial encounter S99.912A and Unspecified injury of left foot, initial encounter S99.922A [facility] [id number] [place] [address] 14021- 8665 04 Jun, [address] [facility] [address] 98154- 8134 May, [facility] [id number] [place] [address] 58007- 2128 May, Hallucinations R44.3 ; Hypertension I10 and Toe pain, right M79.674 [facility] [id number] [place] [address] 25617- 6860 Apr, Hallucinations R44.3 ; 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 and Toe pain, right M79.674 [facility] [id number] [place] [address] 98592- 9923 Mar, [facility] [id number] [place] [address] 84985- 7158 Mar, Hallucinations R44.3 [facility] [id number] [place] [address] 18516- 8724 Mar, [facility] [id number] [place] [address] 61590- 3729 Mar, Delusional disorder F22 and Psychosis, unspecified psychosis type F29 [facility] [id number] [place] [address] 12110- 2405 Mar, [facility] [id number] [place] [address] 91319- 1499 Mar, [facility] [id number] [place] [address] 16936- 4963 February, Local infection of the skin and subcutaneous tissue, unspecified L08.9 and Other injury of unspecified body region, initial encounter T14.8XXA [facility] [id number] [place] [address] 68180- 3148 February, [facility] [id number] [place] [address] 99362- 5169 February, [facility] [id number] [place] [address] 37198- 6027 Jan, Hallucinations R44.3 [facility] [address] [address]- 4992 Dec, Psychosis, unspecified psychosis type F29 [facility] [id number] [place] [address] 74438- 2936 15 Dec, 2017 [facility] [id number] [place] [address] 61456- 1947 Dec, 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 [id number] [place] [address] 48237- 1877 Oct, [facility] [id number] [place] [address] 27348- 4885 Oct, [facility] [id number] [place] [address] 51283- 6038 Oct, [facility] [id number] [place] [address] 94579- 2087 Oct, Dementia, unspecified, without behavioral disturbance F03.90 [facility] [address] [place] [address] 8534 Sep, Medicare annual wellness visit, initial Z00.00 and Encounter for immunization Z23 [facility] [id number] [place] [address] 47406- 1598 Aug, 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 [facility] [id number] [place] [address] 31975- 4754 Aug, [facility] [id number] [place] [address] 53283- 8743 Jul, Encounter for immunization Z23 [facility] [id number] [place] [address] 35881- 4109 Jun, Hallucinations R44.3 [place] [id number] [place] [address] 14352- 6674 05 Jun, [address] [facility] [id number] [place] [address] 63472- 5634 May, Arthralgia of left knee M25.562 ; Age-related nuclear cataract of both eyes H25.13 and Hallucinations R44.3 [place] [id number] [place] [address] 05592- 8795 May, [place] [id number] [place] [address] 94448- 5979 May, [place] [id number] [place] [address] 57931- 5210 Mar, Hyperlipidemia E78.5 and Hypertension I10 [id number] [place] [address] 74451- 4293 Mar, Hyperlipidemia E78.5 and Hypertension I10 [place] [id number] [place] [address] 18343- 1778 Mar, [place] [id number] [place] [address] 72862- 4653 Nov, Hypertension I10 ; 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 ; 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 and 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 [place] [id number] [place] [address] 77565- 2974 14 Aug, 2016 [place] [id number] [place] [address] 80516- 4454 Aug, [place] [id number] [place] [address] 80025- 4523 Aug, Hypertension I10 and 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 [place] [id number] [place] [address] 46813- 2967 Jul, [place] [id number] [place] [address] 47006- 3371 Jun, [facility] [id number] [place] [address] 01009- 4948 Jun, [facility] [id number] [place] [address] 81025- 2634 Jun, [facility] [id number] [place] [address] 63177- 1088 Jun, [facility] [id number] [place] [address] 11279- 5596 16 Jun, 2016 [facility] [id number] [place] [address] 42731 -4552 May, Urinary frequency R35.0 and Acute cystitis without hematuria N30.00 [facility] [id number] [place] [address] 66496- 3450 Jan, [facility] [id number] [place] [address] 89410- 2096 Jan, [facility] [id number] [place] [address] 64077- 9543 Dec, Hyperlipidemia E78.5 [place] [id number] [place] [address] 76891- 3791 Dec, 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 ; Hyperlipidemia E78.[address] [facility] [id number] [place] [address] 04373- 1723 Nov, [facility] [id number] [place] [address] 95748- 3939 Aug, 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 ; Senile cataracts of both eyes H25.9 and Constipation, unspecified constipation type K59.00 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 [address] [facility] [id number] [address]- 1237 May, [address] 294[address]20 [facility] [id number] [address]- 9989 May, Establishing care with new doctor, encounter for V65.8 ; Ataxia 781.3 ; Horizontal nystagmus 379.56 ; Hypertension 401.9 ; Hyperlipidemia 272.4 and History of TIA (transient ischemic attack) V12.54 [place] [address] [facility] [id number], [place] [address]- 6348 May, [place] [address] [facility] [id number], [place] [address]- 3482 May, IMMUNIZATIONS No Known Immunizations SOCIAL HISTORY Never Assessed REASON FOR VISIT Order Request PLAN OF CARE VITAL SIGNS MEDICATIONS Unknown [...] left hip pain, age-indeterminate pubic rami fracture-- [facility] 07/07/16
--- OUTSIDE RECORDS SUMMARY | 2018-10-21 07:14 | XMS REPORT ---
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 58820807 Problem Psychosis, unspecified psychosis type F29 Active 07521745 Problem 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 Active 69705941 Problem Unspecified dementia without behavioral disturbance F03.90 Active 48494866 Problem Hallucinations R44.3 Active 6556968 ALLERGIES No Information ENCOUNTERS Encounter Location Date Diagnosis [place] [address] 25480- 6926 Jun, [place] [address] 42376- 8669 May, [place] [address] 71917- 1925 May, Hallucinations R44.3 ; Hypertension I10 and Toe pain, right M79.674 [place] [address] 50287- 4811 Apr, Hallucinations R44.3 ; 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 and Toe pain, right M79.674 [place] [id number] [place] [address] 04059- 4231 Mar, [place] [address] [address]- 9364 19 Mar, 2018 Hallucinations R44.3 [facility] [place] [id number] [place] [address] 65272- 1173 14 Mar, 2018 [facility] [place] [id number] [place] [address] 01077- 3193 13 Mar, 2018 Delusional disorder F22 and Psychosis, unspecified psychosis type F29 [facility] [place] [id number] [place] [address] 47339- 2058 Mar, [facility] [place] [id number] [place] [address] 96419- 2917 Mar, [facility] [place] [id number] [place] [address] 66333- 5222 February, Local infection of the skin and subcutaneous tissue, unspecified L08.9 and Other injury of unspecified body region, initial encounter T14.8XXA [facility] [place] [id number] [address]- 1364 February, [facility] [place] [id number] [place] [address] 68041- 9399 February, [facility] [place] [id number] [place] [address] 28838- 8968 Jan, Hallucinations R44.3 [facility] [place] [id number] [place] [address] 39313- 3113 Dec, Psychosis, unspecified psychosis type F29 [facility] [place] [address] [address]- 2285 15 Dec, 2017 [facility] [place] [id number] [place] [address] 05513- 2860 Dec, [facility] [place] [address] [address]- 7657 Nov, Unspecified dementia without behavioral disturbance F03.90 and 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 [facility] [place] [id number] [place] [address] 87576- 2281 Oct, [facility] [place] [address] 29756- 8648 Oct, [facility] [place] [id number] [place] [address] 90465- 4373 Oct, [facility] [place] [address] 56592- 6186 Oct, Dementia, unspecified, without behavioral disturbance F03.90 [place] [id number] [place] [address] 55268- 7614 Sep, Encounter for immunization Z23 and Medicare annual wellness visit, initial Z00.00 [place] [id number] [place] [address] 59890- 2143 Aug, 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 and Hallucinations R44.3 [place] [id number] [place] [address] 53113- 8896 Aug, [place] [id number] [place] [address] 25316- 3301 Jul, Encounter for immunization Z23 [place] [id number] [place] [address] 46173- 4988 Jun, Hallucinations R44.3 [place] [id number] [place] [address] 67673- 0367 05 Jun, 2017 Hallucinations R44.3 [place] [id number] [place] [address] 78775- 3224 30 May, 2017 Arthralgia of left knee M25.562 ; Age-related nuclear cataract of both eyes H25.13 and Hallucinations R44.3 [facility] [place] [id number] [place] [address] 94809- 8692 May, [place] [id number] [place] [address] 27055- 1302 May, [facility] [place] [id number] [place] [address] 80713- 2540 Mar, Hyperlipidemia E78.5 and Hypertension I10 [facility] [place] [id number] [place] [address] 31727- 6824 Mar, Hyperlipidemia E78.5 and Hypertension I10 [facility] [place] [id number] [place] [address] 00051- 9461 Mar, [facility] [place] [id number] [place] [address] 25481- 1884 Nov, Hypertension I10 ; 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 ; 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 and 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 [facility] [place] [id number] [place] [address] 91537- 7719 Aug, [facility] [place] [id number] [place] [address] 71543- 7953 Aug, [facility] [place] [id number] [place] [address] 32127- 3420 Aug, Hypertension I10 and 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 [facility] [place] [id number] [place] [address] 00216- 1690 Jul, [facility] [place] [id number] [place] [address] 14293- 3270 26 Jun, 2016 [facility] [place] [id number] [place] [address] 37585- 6991 23 Jun, 2016 [facility] [place] [id number] [place] [address] 76079- 3110 23 Jun, 2016 [facility] [place] [id number] [place] [address] 46585- 9555 20 Jun, 2015 [facility] [place] [id number] [place] [address] 82702- 0616 16 Jun, 2016 [facility] [id number] [place] [address] 25094 -4589 May, Urinary frequency R35.0 and Acute cystitis without hematuria N30.00 [place] [address] 45175- 7558 Jan, [facility] [place] [address] 42773- 8006 Jan, [place] [address] 25099- 9929 Dec, Hyperlipidemia E78.5 [place] [address] 95041- 0870 Dec, 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 ; Hyperlipidemia E78.5 and Hypertension I10 [place] [address] 10614- 2592 Nov, [place] [address] 08582- 6225 Aug, 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 ; Senile cataracts of both eyes H25.9 and Constipation, unspecified constipation type K59.00 [place] [address] 48770- 0801 Jun, Unspecified psychosis 298.9 and 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 [place] [address] 91938- 5172 Jun, 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 [place] [address] 05530- 6087 May, Dementia 294.20 [place] [address] 82150- 0580 May, Establishing care with new doctor, encounter for V65.8 ; Ataxia 781.3 ; Horizontal nystagmus 379.56 ; Hypertension 401.9 ; Hyperlipidemia 272.4 and History of TIA (transient ischemic attack) V12.54 [place] [address] 29054- 3261 May, [facility] [place] [address] [facility] [id number] [place] [address]- 3307 May, IMMUNIZATIONS No Known Immunizations SOCIAL HISTORY Never Assessed REASON FOR VISIT Requests return call from Provider PLAN OF CARE VITAL SIGNS MEDICATIONS Unknown [...] hip pain, age-indeterminate pubic rami fracture-- [facility] 07/07/16
--- OUTSIDE RECORDS SUMMARY | 2018-10-21 07:14 | XMS REPORT ---
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 Active 21991544 Problem Psychosis, unspecified psychosis type F29 Active 55878867 Problem 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 Active 00612792 Problem Unspecified dementia without behavioral disturbance F03.90 Active 18976761 Problem Hallucinations R44.3 Active 6251036 ALLERGIES No Information ENCOUNTERS Encounter Location Date Diagnosis [facility] [id number] [place] [address] 66266- 6628 Jun, [facility] [id number] [place] [address] 47646 -7278 Jun, Unspecified injury of left ankle, initial encounter S99.912A and Unspecified injury of left foot, initial encounter S99.922A [facility] [id number] [place] [address] 55600- 6315 Jun, Hallucinations R44.3 [facility] [id number] [place] [address] 35917- 2890 May, [facility] [id number] [place] [address] 88598- 4606 May, Hallucinations R44.3 ; Hypertension I10 and Toe pain, right M79.674 [facility] [id number] [place] [address] 61837- 7065 Apr, Hallucinations R44.3 ; 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 and Toe pain, right M79.674 [facility] [id number] [place] [address] 69188- 9036 Mar, [facility] [id number] [place] [address] 44035- 5638 Mar, Hallucinations R44.3 [facility] [id number] [place] [address] 59543- 8874 Mar, [facility] [id number] [place] [address] 86426- 7273 Mar, Delusional disorder F22 and Psychosis, unspecified psychosis type F29 [facility] [id number] [place] [address] 66385- 8441 Mar, [facility] [id number] [place] [address] 88244- 1711 Mar, [facility] [id number] [place] [address] 73165- 2637 February, Local infection of the skin and subcutaneous tissue, unspecified L08.9 and Other injury of unspecified body region, initial encounter T14.8XXA [facility] [id number] [place] [address] 42566- 8503 February, [facility] [id number] [place] [address] 34466- 2476 February, [facility] [id number] [place] [address] 18788- 8169 Jan, Hallucinations R44.3 [facility] [id number] [place] [address] 93342- 1472 Dec, Psychosis, unspecified psychosis type F29 [facility] [id number] [place] [address] 45355- 8819 15 Dec, 2017 [facility] [address] [address] 9271 Dec, [facility] [id number] [place] [address] 40968- 1749 Nov, Unspecified dementia without behavioral disturbance F03.90 and 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 [facility] [id number] [place] [address] 00013- 9843 Oct, [facility] [id number] [place] [address] 29506- 1665 Oct, [facility] [id number] [place] [address] 54919- 7995 Oct, [facility] [id number] [place] [address] 12241- 7760 Oct, Dementia, unspecified, without behavioral disturbance F03.90 [facility] [address] [address] 2502 Sep, Medicare annual wellness visit, initial Z00.00 and Encounter for immunization Z23 [place] [id number] [place] [address] 06229- 9273 Aug, 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 and Hallucinations R44.3 [place] [facility] [id number] [place] [address] 53922- 0008 Aug, [facility] [id number] [place] [address] 91507- 0367 Jul, Encounter for immunization Z23 [facility] [id number] [place] [address] 15661- 7312 Jun, Hallucinations R44.3 [facility] [id number] [place] [address] 95598- 7673 Jun, Hallucinations R44.3 [facility] [id number] [place] [address] 31719- 3956 May, Arthralgia of left knee M25.562 ; Age-related nuclear cataract of both eyes H25.13 and Hallucinations R44.3 [facility] [address] 78116- 3147 May, [facility] [address] 72745- 6749 May, [facility] [address] 78193- 6897 Mar, Hyperlipidemia E78.5 and Hypertension I10 [place] [address] 25687- 6415 Mar, Hyperlipidemia E78.5 and Hypertension I10 [facility] [address] 06545- 1428 Mar, [facility] [address] 43062- 9221 Nov, Hypertension I10 ; 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 ; 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 and 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 [facility] [address] 57035- 1899 Aug, [facility] [id number] [place] [address] 26660- 9769 Aug, [facility] [address] 79557- 0678 Aug, Hypertension I10 and 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 [facility] [id number] [place] [address] 33782- 2866 Jul, [facility] [address] 98836- 8799 Jun, [facility] [address] 01519- 6822 Jun, [facility] [address] 49532- 0795 Jun, [facility] [address], [place] [address]- 4933 Jun, [facility] [id number] [place] [address] 74112- 0226 16 Jun, 2016 [facility] [id number] [place] [address] 49454 -7653 May, Urinary frequency R35.0 and Acute cystitis without hematuria N30.00 [facility] [id number] [place] [address] 97579- 2557 Jan, [facility] [id number] [place] [address] 26898- 7654 Jan, [facility] [id number] [place] [address] 07421- 0967 Dec, Hyperlipidemia E78.5 [place] [id number] [place] [address] 14254- 0784 Dec, 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 ; Hyperlipidemia E78.5 and Hypertension I10 [facility] [id number] [place] [address] 38533- 1499 Nov, [facility] [id number] [place] [address] 38826- 6952 Aug, 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 ; Senile cataracts of both eyes H25.9 and Constipation, unspecified constipation type K59.00 [facility] [id number] [place] [address] 41399- 3268 Jun, Unspecified psychosis 298.9 and 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 [facility] [id number] [place] [address] 51152- 9723 Jun, 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 [facility] [id number] [place] [address] 06754- 5109 May, Dementia 294.20 [facility] [address] [place] [address]- 7781 May, Establishing care with new doctor, encounter for V65.8 ; Ataxia 781.3 ; Horizontal nystagmus 379.56 ; Hypertension 401.9 ; Hyperlipidemia 272.4 and History of TIA (transient ischemic attack) V12.54 [facility] [address] [facility] [id number] [address] 5331 May, [facility] [address] [facility] [id number], [place] [address]- 6180 May, IMMUNIZATIONS No Known Immunizations SOCIAL HISTORY [...] pain, age-indeterminate pubic rami fracture-- [facility] 07/07/16
--- OUTSIDE RECORDS SUMMARY | 2018-10-21 07:14 | XMS REPORT ---
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 18196195 Problem Psychosis, unspecified psychosis type F29 Active 68833357 Problem 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 Active 93770905 Problem Unspecified dementia without behavioral disturbance F03.90 Active 18139264 Problem Hallucinations R44.3 Active 7285786 ALLERGIES No Known Allergies ENCOUNTERS Encounter Location Date Diagnosis [facility] [id number] [place] [address] 62524- 9968 Jun, [facility] [id number] [place] [address] 57680 -2230 Jun, Unspecified injury of left ankle, initial encounter S99.912A and Unspecified injury of left foot, initial encounter S99.922A [facility] [address], [place] [address]- 0937 Jun, Hallucinations R44.3 [facility] [id number] [place] [address] 10124- 2527 May, [facility] [id number] [place] [address] 32077- 7925 May, Hallucinations R44.3 ; Hypertension I10 and Toe pain, right M79.674 [facility] [id number] [place] [address] 15876- 7283 Apr, Hallucinations R44.3 ; 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 and Toe pain, right M79.674 [facility] [id number] [place] [address] 18105- 3592 Mar, [facility] [address] 50989- 8053 Mar, Hallucinations R44.3 [facility] [id number] [place] [address] 02458- 6522 Mar, [facility] [id number] [place] [address] 74214- 0692 Mar, Delusional disorder F22 and Psychosis, unspecified psychosis type F29 [facility] [id number] [place] [address] 69280- 6688 Mar, [facility] [id number] [place] [address] 39072- 8273 Mar, [facility] [id number] [place] [address] 03600- 0965 February, Local infection of the skin and subcutaneous tissue, unspecified L08.9 and Other injury of unspecified body region, initial encounter T14.8XXA [facility] [id number] [place] [address] 20936- 0551 February, [facility] [id number] [place] [address] 81291- 3834 February, [facility] [id number] [place] [address] 62562- 0067 Jan, Hallucinations R44.3 [facility] [id number] [place] [address] 34941- 1389 Dec, Psychosis, unspecified psychosis type F29 [facility] [id number] [place] [address] 74138- 1937 15 Dec, 2017 [facility] [address], [place] [address]- 2046 Dec, [facility] [address] 2866 Nov, Unspecified dementia without behavioral disturbance F03.90 and 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 [facility] [id number] [place] [address] 85178- 1358 Oct, [facility] [address], [place] [address]- 2324 Oct, [facility] [id number] [place] [address] 88655- 4048 Oct, [facility] [id number] [place] [address] 57562- 8638 Oct, Dementia, unspecified, without behavioral disturbance F03.90 [facility] [address], [place] [address]- 3692 Sep, Medicare annual wellness visit, initial Z00.00 and Encounter for immunization Z23 [place] [id number] [place] [address] 44626- 8001 Aug, 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 and Hallucinations R44.3 [place] [address], [place] [address]- 3335 Aug, [facility] [id number] [place] [address] 22871- 8097 Jul, Encounter for immunization Z23 [facility] [id number] [place] [address] 30169- 1319 Jun, Hallucinations R44.3 [facility] [id number] [place] [address] 46062- 4429 Jun, Hallucinations R44.3 [facility] [id number] [place] [address] 41718- 4184 May, Arthralgia of left knee M25.562 ; Age-related nuclear cataract of both eyes H25.13 and Hallucinations R44.3 [facility] [address] 84837- 3719 May, [facility] [id number] [place] [address] 95667- 7432 May, [facility] [address] 94413- 3631 Mar, Hyperlipidemia E78.5 and Hypertension I10 [place] [address] 61666- 6472 Mar, Hyperlipidemia E78.5 and Hypertension I10 [place] [id number] [place] [address] 24424- 1996 Mar, [facility] [address] 29101- 7479 Nov, Hypertension I10 ; 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 ; 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 and 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 [facility] [id number] [place] [address] 16333- 8317 Aug, [facility] [id number] [place] [address] 49165- 5160 Aug, [facility] [address] 19250- 3035 Aug, Hypertension I10 and 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 [facility] [id number] [place] [address] 00614- 3023 Jul, [facility] [address] 19025- 0675 Jun, [facility] [id number] [place] [address] 94093- 3887 Jun, [facility] [address] 76468- 1225 Jun, [facility] [id number] [place] [address] 24617- 9586 Jun, [facility] [id number] [place] [address] 54355- 3754 16 Jun, 2016 [facility] [id number] [place] [address] 66760 -8746 May, Urinary frequency R35.0 and Acute cystitis without hematuria N30.00 [facility] [id number] [place] [address] 70283- 1397 Jan, [facility] [id number] [place] [address] 06980- 4079 Jan, [facility] [id number] [place] [address] 08120- 1421 Dec, Hyperlipidemia E78.5 [place] [id number] [place] [address] 75422- 6835 Dec, 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 ; Hyperlipidemia E78.5 and Hypertension I10 [facility] [id number] [place] [address] 33032- 3529 Nov, [facility] [id number] [place] [address] 94368- 7253 Aug, 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 ; Senile cataracts of both eyes H25.9 and Constipation, unspecified constipation type K59.00 [facility] [id number] [place] [address] 85013- 9988 Jun, Unspecified psychosis 298.9 and 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 [place] [id number] [place] [address] 47331- 1304 Jun, 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 [facility] [id number] [place] [address] 66729- 9801 May, Dementia 294.20 [facility] [id number] [place] [address]- 7552 13 May, 2015 Establishing care with new doctor, encounter for V65.8 ; Ataxia 781.3 ; Horizontal nystagmus 379.56 ; Hypertension 401.9 ; Hyperlipidemia 272.4 and History of TIA (transient ischemic attack) V12.54 [facility] [address] [facility] [id number] [place] [address]- 8504 May, [facility] [address] [facility] [id number] [address]- 9630 May, IMMUNIZATIONS No Known Immunizations SOCIAL HISTORY Never Assessed REASON FOR VISIT Med f/u, PT reports no concerns today -French DYE PLAN OF CARE Activity Details Follow Up 4 Weeks Reason:hallucinations VITAL SIGNS Height 64 in 2018-05-29 Weight 116.2 lbs 2018-05-29 Temperature 97.9 degrees Fahrenheit 2018-05-29 Heart Rate 83 bpm 2018-05-29 Respiratory Rate 18 2018-05-29 Oximetry 97 % 2018-05-29 BMI 19.94 kg/m2 2018-05-29 Blood pressure systolic 120 mmHg 2018-05-29 Blood pressure diastolic 62 mmHg 2018-05-29 MEDICATIONS Medication Instructions Dosage Frequency Start Date End Date Duration Status Vitamin D 1000 UNIT Orally Once a day 1 tablet 24h Active Seroquel XR 50 mg Orally Once a day 1 tablet at bedtime 24h May, 30 days Active Baby Aspirin 81 MG Orally Once a day 24h Active Fish Oil 1000 MG Orally Twice a day 1 capsule 12h Active Lexapro 10 mg Orally Once a day 1 tablet 24h Mar, 90 days Active RESULTS No Results PROCEDURES Procedure Date Ordered Result Body Site [facility] VISIT ESTABLISHED PATIENT May 29, 2018 INSTRUCTIONS MEDICATIONS ADMINISTERED No Known Medications [...] left hip pain, age-indeterminate pubic rami fracture-- [facility] 07/07/16
--- OUTSIDE RECORDS SUMMARY | 2018-10-21 07:14 | XMS REPORT ---
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 79149180 Problem Psychosis, unspecified psychosis type F29 Active 22020747 Problem 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 Active 39831284 Problem Unspecified dementia without behavioral disturbance F03.90 Active 05763167 Problem Hallucinations R44.3 Active 5387674 ALLERGIES No Information ENCOUNTERS Encounter Location Date Diagnosis [facility] [id number] [place] [address] 89388- 3502 Jun, [facility] [id number] [place] [address] 74651 -6568 Jun, Unspecified injury of left ankle, initial encounter S99.912A and Unspecified injury of left foot, initial encounter S99.922A [facility] [id number] [place] [address] 03588- 3633 Jun, Hallucinations R44.3 [facility] [id number] [place] [address] 19876- 0789 May, [facility] [id number] [place] [address] 53417- 1003 May, Hallucinations R44.3 ; Hypertension I10 and Toe pain, right M79.674 [facility] [id number] [place] [address] 99351- 7549 Apr, Hallucinations R44.3 ; 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 and Toe pain, right M79.674 [facility] [id number] [place] [address] 11027- 4494 Mar, [facility] [id number] [place] [address] 12762- 8034 Mar, Hallucinations R44.3 [facility] [id number] [place] [address] 09820- 0334 Mar, [facility] [id number] [place] [address] 19661- 2442 Mar, Delusional disorder F22 and Psychosis, unspecified psychosis type F29 [facility] [id number] [place] [address] 02162- 9420 Mar, [facility] [id number] [place] [address] 62759- 2636 Mar, [facility] [id number] [place] [address] 90733- 8703 February, Local infection of the skin and subcutaneous tissue, unspecified L08.9 and Other injury of unspecified body region, initial encounter T14.8XXA [facility] [id number] [place] [address] 69298- 7576 February, [facility] [id number] [place] [address] 33794- 4629 February, [facility] [id number] [place] [address] 32698- 2148 Jan, Hallucinations R44.3 [facility] [id number] [place] [address] 34293- 9789 Dec, Psychosis, unspecified psychosis type F29 [facility] [id number] [place] [address] 34344- 7217 15 Dec, 2017 [facility] [address] [address] 9107 Dec, [facility] [id number] [place] [address] 81464- 5669 Nov, Unspecified dementia without behavioral disturbance F03.90 and 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 [facility] [id number] [place] [address] 89053- 8296 Oct, [facility] [id number] [place] [address] 07804- 6648 Oct, [facility] [id number] [place] [address] 37311- 3090 Oct, [facility] [id number] [place] [address] 78779- 9293 Oct, Dementia, unspecified, without behavioral disturbance F03.90 [facility] [address] [address] 3[address] Sep, Medicare annual wellness visit, initial Z00.00 and Encounter for immunization Z23 [facility] [id number] [place] [address] 25740- 3512 Aug, 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 and Hallucinations R44.3 [facility] [id number] [place] [address] 38076- 1614 Aug, [facility] [id number] [place] [address] 53826- 1710 Jul, Encounter for immunization Z23 [facility] [id number] [place] [address] 51222- 1517 Jun, Hallucinations R44.3 [facility] [id number] [place] [address] 09294- 2785 Jun, Hallucinations R44.3 [facility] [id number] [place] [address] 07081- 5905 May, Arthralgia of left knee M25.562 ; Age-related nuclear cataract of both eyes H25.13 and Hallucinations R44.3 [facility] [address] 73322- 0985 May, [facility] [address] 31697- 7580 May, [facility] [address] 49987- 0300 Mar, Hyperlipidemia E78.5 and Hypertension I10 [facility] [address] 41035- 0816 Mar, Hyperlipidemia E78.5 and Hypertension I10 [facility] [address] 69183- 7826 Mar, [facility] [address] 51633- 4052 Nov, Hypertension I10 ; 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 ; 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 and 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 [facility] [address] 65984- 7430 Aug, [facility] [id number] [place] [address] 90960- 1990 Aug, [facility] [address] 20149- 5126 Aug, Hypertension I10 and 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 [facility] [id number] [place] [address] 18399- 7706 Jul, [facility] [address] 87711- 7142 Jun, [facility] [address] 85166- 1901 Jun, [facility] [address] 54273- 6590 Jun, [facility] [address] [address]- 2997 Jun, [facility] [id number] [place] [address] 90518- 0274 16 Jun, 2016 [facility] [id number] [place] [address] 60363 -9903 May, Urinary frequency R35.0 and Acute cystitis without hematuria N30.00 [facility] [id number] [place] [address] 00801- 8974 Jan, [facility] [id number] [place] [address] 94334- 9319 Jan, [facility] [id number] [place] [address] 14265- 4689 Dec, Hyperlipidemia E78.5 [facility] [id number] [place] [address] 39097- 1436 Dec, 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 ; Hyperlipidemia E78.5 and Hypertension I10 [facility] [id number] [place] [address] 81560- 7105 Nov, [facility] [id number] [place] [address] 01830- 0518 Aug, 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 ; Senile cataracts of both eyes H25.9 and Constipation, unspecified constipation type K59.00 [facility] [address] [place] [address] 85617- 3704 Jun, Unspecified psychosis 298.9 and 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 [facility] [id number] [place] [address] 62352- 5329 Jun, 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 [facility] [id number] [place] [address] 24092- 0049 May, Dementia 294.20 [facility] [address] [place] [address]- 3179 May, Establishing care with new doctor, encounter for V65.8 ; Ataxia 781.3 ; Horizontal nystagmus 379.56 ; Hypertension 401.9 ; Hyperlipidemia 272.4 and History of TIA (transient ischemic attack) V12.54 [facility] [address] [facility] [place] [id number] [address]10 May, [facility] [address] [facility] [place] [id number] [address]- 3540 May, IMMUNIZATIONS No Known Immunizations SOCIAL HISTORY Never Assessed REASON FOR VISIT Urgent nurse call PLAN OF CARE VITAL SIGNS MEDICATIONS [...] left hip pain, age-indeterminate pubic rami fracture-- [facility] 07/07/16
--- OUTSIDE RECORDS SUMMARY | 2018-10-21 07:14 | XMS REPORT ---
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 Active 29657923 Problem Psychosis, unspecified psychosis type F29 Active 62342453 Problem 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 Active 92360371 Problem Unspecified dementia without behavioral disturbance F03.90 Active 82603665 Problem Hallucinations R44.3 Active 9508147 ALLERGIES No Known Allergies ENCOUNTERS Encounter Location Date Diagnosis [facility] [id number] [place] [address] 98791- 0924 Jun, Hallucinations R44.3 [facility] [facility] [id number] [place] [address] 15145- 9492 May, [place] [address] 62965- 7439 May, Hallucinations R44.3 ; Hypertension I10 and Toe pain, right M79.674 [place] [address] 42078- 3866 Apr, Hallucinations R44.3 ; 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 and Toe pain, right M79.674 [place] [id number] [place] [address] 12539- 2246 Mar, [facility] [address] [address]- 7690 Mar, Hallucinations R44.3 [facility] [id number] [address]- 0215 Mar, [facility] [address] [address]- 2221 Mar, Delusional disorder F22 and Psychosis, unspecified psychosis type F29 [facility] [address] [address]- 9660 Mar, [facility] [id number] [place] [address] 51656- 9513 Mar, [facility] [id number] [place] [address] 27995- 5642 February, Local infection of the skin and subcutaneous tissue, unspecified L08.9 and Other injury of unspecified body region, initial encounter T14.8XXA [facility] [address] [address]- 5899 February, [facility] [id number] [place] [address] 61524- 0336 February, [facility] [address] [address]- 5011 Jan, Hallucinations R44.3 [facility] [address] [address]- 3322 Dec, Psychosis, unspecified psychosis type F29 [facility] [address] [address]- 2525 Dec, [facility] [id number] [address]- 5274 Dec, [facility] [address] [address]- 3320 Nov, Unspecified dementia without behavioral disturbance F03.90 and 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 [facility] [address] [place] [address] 47965- 2882 Oct, [facility] [id number] [place] [address] 93168- 8107 Oct, [facility] [id number] [place] [address] 46784- 2463 Oct, [facility] [address] 55329- 6530 Oct, Dementia, unspecified, without behavioral disturbance F03.90 [place] [id number] [place] [address] 63212- 4694 06 Sep, 2017 Medicare annual wellness visit, initial Z00.00 and Encounter for immunization Z23 [place] [facility] [id number] [place] [address] 97371- 3086 Aug, 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 and Hallucinations R44.3 [place] [place] [id number] [place] [address] 22098- 2259 Aug, [place] [place] [id number] [place] [address] 97338- 0999 Jul, Encounter for immunization Z23 [facility] [id number] [place] [address] 77582- 5555 Jun, Hallucinations R44.3 [facility] [id number] [place] [address] 75480- 0009 Jun, Hallucinations R44.3 [place] [facility] [id number] [place] [address] 69545- 7201 May, Arthralgia of left knee M25.562 ; Age-related nuclear cataract of both eyes H25.13 and Hallucinations R44.3 [facility] [id number] [place] [address] 25661- 9589 May, [place] [id number] [place] [address] 83097- 4325 May, [facility] [id number] [place] [address] 68832- 0349 Mar, Hyperlipidemia E78.5 and Hypertension I10 [facility] [id number] [place] [address] 18693- 4539 16 Mar, 2017 Hyperlipidemia E78.5 and Hypertension I10 [facility] [id number] [place] [address] 13196- 7952 Mar, [facility] [id number] [place] [address] 26910- 9673 15 Nov, 2016 Hypertension I10 ; 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 ; 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 and 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 [facility] [id number] [place] [address] 00513- 5837 14 Aug, 2016 [facility] [id number] [place] [address] 94185- 3877 08 Aug, 2016 [facility] [id number] [place] [address] 95046- 5520 07 Aug, 2016 Hypertension I10 and 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 [facility] [id number] [place] [address] 60214- 7516 14 Jul, 2016 [facility] [id number] [place] [address] 07226- 1642 26 Jun, 2016 [facility] [id number] [place] [address] 20978- 2588 23 Jun, 2015 [facility] [id number] [place] [address] 41597- 0271 23 Jun, 2016 [facility] [id number] [place] [address] 32352- 2183 20 Jun, 2015 [facility] [id number] [place] [address] 36828- 0843 16 Jun, 2016 [facility] [address] [address] -7039 May, Urinary frequency R35.0 and Acute cystitis without hematuria N30.00 [place] [address] 85409- 3555 Jan, [place] [address] 84750- 7269 Jan, [place] [address] 00124- 5403 Dec, Hyperlipidemia E78.[address] 85074- 3198 Dec, 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 ; Hyperlipidemia E78.5 and Hypertension I10 [address] 08368- 6175 Nov, [address] 45558- 1089 Aug, 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 ; Senile cataracts of both eyes H25.9 and Constipation, unspecified constipation type K59.[address] 76784- 6261 Jun, Unspecified psychosis 298.9 and 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 64836- 2081 Jun, 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 [place] [address] 63239- 5456 May, Dementia 294.[address] 73299- 1469 May, Establishing care with new doctor, encounter for V65.8 ; Ataxia 781.3 ; Horizontal nystagmus 379.56 ; Hypertension 401.9 ; Hyperlipidemia 272.4 and History of TIA (transient ischemic attack) V12.[address] 68134- 6706 May, [facility] [address] [facility] [id number] [address]- 0604 May, IMMUNIZATIONS No Known Immunizations SOCIAL HISTORY Never Assessed REASON FOR VISIT foot pain Pt states here for f/u, when asked about feet states she has had one toe with gout, but that is getting better MARNIE Lay PLAN OF CARE Activity Details Follow Up 4 Weeks Reason:med check VITAL SIGNS Height 64 in 2018-04-22 Weight 115 lbs 2018-04-22 Temperature 98.3 degrees Fahrenheit 2018-04-22 Heart Rate 72 bpm 2018-04-22 Respiratory Rate 18 2018-04-22 BMI 19.74 kg/m2 2018-04-22 Blood pressure systolic 122 mmHg 2018-04-22 Blood pressure diastolic 64 mmHg 2018-04-22 MEDICATIONS Medication Instructions Dosage Frequency Start Date End Date Duration Status Fish Oil 1000 MG Orally Twice a day 1 capsule 12h Active Lexapro 10 mg Orally Once a day 1 tablet 24h Mar, 90 days Active Vitamin D 1000 UNIT Orally Once a day 1 tablet 24h Active Mupirocin 2 % Externally 2 times a day 1 application to affected area 12h Active RESULTS No Results PROCEDURES Procedure Date Ordered Result Body Site [facility] VISIT ESTABLISHED PATIENT April 22, 2018 INSTRUCTIONS MEDICATIONS ADMINISTERED No Known Medications [...] left hip pain, age-indeterminate pubic rami fracture-- [facility] 07/07/16
--- OUTSIDE RECORDS SUMMARY | 2018-10-21 07:15 | XMS REPORT ---
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 61517425 Problem Psychosis, unspecified psychosis type F29 Active 86689703 Problem 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 Active 10390584 Problem Unspecified dementia without behavioral disturbance F03.90 Active 13558621 Problem Hallucinations R44.3 Active 7272226 ALLERGIES No Information ENCOUNTERS Encounter Location Date Diagnosis [place] [address] [address]- 95[address] Jun, [place] [address] 01459- 4202 May, [place] [address] 18947- 4843 May, Hallucinations R44.3 ; Hypertension I10 and Toe pain, right M79.674 [place] [address] 29943- 7862 Apr, Hallucinations R44.3 ; 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 and Toe pain, right M79.674 [place] [address] [place] [id number] [place] [address] 65942- 2325 Mar, [place] [address], [place] [address] 19 Mar, 2018 Hallucinations R44.3 [facility] [address] [place] [id number] [place] [address] 48098- 8631 14 Mar, 2018 [facility] [address] [place] [address] [id number] [place] [address] 89886- 8311 13 Mar, 2018 Delusional disorder F22 and Psychosis, unspecified psychosis type F29 [facility] [address] [place] [id number] [place] [address] 54647- 5245 Mar, [facility] [address] [place] [id number] [place] [address] 07140- 7150 Mar, [facility] [address] [place] [id number] [place] [address] 85410- 7821 February, Local infection of the skin and subcutaneous tissue, unspecified L08.9 and Other injury of unspecified body region, initial encounter T14.8XXA [facility] [address] [place] [id number] [address] February, [facility] [address] [place] [id number] [place] [address] 00607- 4320 February, [facility] [address] [place] [address] [id number] [place] [address] 01614- 5915 Jan, Hallucinations R44.3 [facility] [address] [place] [address] 59011- 0237 Dec, Psychosis, unspecified psychosis type F29 [facility] [address], [place] [address] 5739 15 Dec, 2017 [facility] [address] [place] [id number] [place] [address] 94636- 9756 Dec, [facility] [address], [place] [address] 4668 Nov, Unspecified dementia without behavioral disturbance F03.90 and 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 [facility] [address] [place] [id number] [place] [address] 53246- 1622 Oct, [facility] [address] 56498- 6959 Oct, [facility] [address] [place] [id number] [place] [address] 14589- 4627 Oct, [facility] [address] 48245- 8212 Oct, Dementia, unspecified, without behavioral disturbance F03.90 [place] [address] [place] [id number] [place] [address] 80740- 1931 Sep, Encounter for immunization Z23 and Medicare annual wellness visit, initial Z00.00 [place] [address] [place] [id number] [place] [address] 70183- 3947 Aug, 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 and Hallucinations R44.3 [place] [address] [place] [id number] [place] [address] 34268- 5560 Aug, [place] [address] [place] [id number] [place] [address] 92559- 1141 Jul, Encounter for immunization Z23 [place] [address] [place] [id number] [place] [address] 97330- 0949 Jun, Hallucinations R44.3 [place] [address] [place] [id number] [place] [address] 78985- 0440 05 Jun, 2017 Hallucinations R44.3 [place] [address] [place] [id number] [place] [address] 43580- 5131 30 May, 2017 Arthralgia of left knee M25.562 ; Age-related nuclear cataract of both eyes H25.13 and Hallucinations R44.3 [facility] [address] [place] [id number] [place] [address] 68196- 6707 May, [place] [address] [place] [id number] [place] [address] 04732- 8171 May, [facility] [address] [place] [id number] [place] [address] 60659- 3777 Mar, Hyperlipidemia E78.5 and Hypertension I10 [facility] [address] [place] [id number] [place] [address] 46825- 0233 Mar, Hyperlipidemia E78.5 and Hypertension I10 [facility] [address] [place] [id number] [place] [address] 86043- 5043 Mar, [facility] [address] [place] [id number] [place] [address] 51716- 7518 Nov, Hypertension I10 ; 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 ; 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 and 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 [facility] [address] [place] [id number] [place] [address] 86445- 4787 Aug, [facility] [address] [place] [id number] [place] [address] 87364- 2188 Aug, [facility] [address] [place] [id number] [place] [address] 86259- 3161 Aug, Hypertension I10 and 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 [facility] [address] [place] [id number] [place] [address] 31009- 0934 Jul, [facility] [address] [place] [id number] [place] [address] 57182- 0322 26 Jun, 2016 [facility] [address] [place] [id number] [place] [address] 17037- 9231 23 Jun, 2016 [facility] [address] [place] [id number] [place] [address] 54671- 1667 23 Jun, 2016 [facility] [address] [place] [id number] [place] [address] 61856- 5694 20 Jun, 2015 [facility] [address] [place] [id number] [place] [address] 19456- 1447 16 Jun, 2016 [facility] [address] [place] [id number] [place] [address] 45899 -3762 May, Urinary frequency R35.0 and Acute cystitis without hematuria N30.00 [place] [address] 74812- 0517 Jan, [facility] [address] 15582- 6331 Jan, [place] [address] 01152- 4529 Dec, Hyperlipidemia E78.5 [place] [address] 71942- 1524 Dec, 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 ; Hyperlipidemia E78.5 and Hypertension I10 [place] [address] 37990- 3535 Nov, [place] [address] 99673- 0426 Aug, 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 ; Senile cataracts of both eyes H25.9 and Constipation, unspecified constipation type K59.00 [place] [address] 60977- 0738 Jun, Unspecified psychosis 298.9 and 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 [place] [address] 72038- 0710 Jun, 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 [place] [address] 00431- 6754 May, Dementia 294.20 [place] [address] 72674- 1739 May, Establishing care with new doctor, encounter for V65.8 ; Ataxia 781.3 ; Horizontal nystagmus 379.56 ; Hypertension 401.9 ; Hyperlipidemia 272.4 and History of TIA (transient ischemic attack) V12.54 [place] [address] 70647- 2617 May, [facility] [address] [facility] [id number] [place] [address]- 4564 May, IMMUNIZATIONS No Known Immunizations SOCIAL HISTORY [...] left hip pain, age-indeterminate pubic rami fracture-- [facility] 07/07/16
--- OUTSIDE RECORDS SUMMARY | 2018-10-21 07:15 | XMS REPORT ---
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 64290083 Problem Psychosis, unspecified psychosis type F29 Active 07441204 Problem 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 Active 12743555 Problem Unspecified dementia without behavioral disturbance F03.90 Active 42411566 Problem Hallucinations R44.3 Active 6087426 ALLERGIES No Known Allergies ENCOUNTERS Encounter Location Date Diagnosis [place] [address] [place] [id number] [place] [address] 39254- 3234 Jun, [place] [address] [place] [id number] [place] [address] 13952- 4755 May, [place] [address] 96119- 7874 May, Hallucinations R44.3 ; Hypertension I10 and Toe pain, right M79.674 [place] [address] 41864- 3717 Apr, Hallucinations R44.3 ; 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 and Toe pain, right M79.674 [place] [address] [place] [id number] [place] [address] 33536- 2003 Mar, [place] [address] [address]- 4905 19 Mar, 2018 Hallucinations R44.3 [facility] [address] [place] [id number] [place] [address] 28698- 9247 14 Mar, 2018 [facility] [address] [place] [id number] [place] [address] 47635- 3762 Mar, Delusional disorder F22 and Psychosis, unspecified psychosis type F29 [facility] [address] [place] [id number] [place] [address] 37253- 2836 Mar, [facility] [address] [place] [id number] [place] [address] 58078- 0752 Mar, [facility] [address] [place] [id number] [place] [address] 21130- 8571 February, Local infection of the skin and subcutaneous tissue, unspecified L08.9 and Other injury of unspecified body region, initial encounter T14.8XXA [facility] [address] [place] [id number] [address]- 2306 February, [facility] [address] [place] [id number] [place] [address] 83004- 9892 February, [facility] [address] [place] [address] 42401- 6140 Jan, Hallucinations R44.3 [facility] [address] [place] [address] 06127- 3151 Dec, Psychosis, unspecified psychosis type F29 [facility] [address] [address]- 0200 15 Dec, 2017 [facility] [address] [place] [id number] [place] [address] 51294- 3963 Dec, [facility] [address] [address]- 6508 Nov, Unspecified dementia without behavioral disturbance F03.90 and 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 [place] [address] [place] [id number] [place] [address] 60824- 3729 Oct, [facility] [address] 46732- 4981 Oct, [facility] [address] [place] [id number] [place] [address] 09503- 4110 Oct, [facility] [address] 14339- 8325 Oct, Dementia, unspecified, without behavioral disturbance F03.90 [place] [address] [place] [id number] [place] [address] 54438- 2964 Sep, Encounter for immunization Z23 and Medicare annual wellness visit, initial Z00.00 [place] [address] [place] [id number] [place] [address] 00785- 2645 Aug, 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 and Hallucinations R44.3 [place] [address] [place] [id number] [place] [address] 10448- 5485 Aug, [place] [address] [place] [id number] [place] [address] 19604- 8914 Jul, Encounter for immunization Z23 [place] [address] [place] [id number] [place] [address] 48621- 7787 Jun, Hallucinations R44.3 [place] [address] 68514- 3522 05 Jun, 2017 Hallucinations R44.3 [place] [address] [place] [id number] [place] [address] 83238- 2257 30 May, 2017 Arthralgia of left knee M25.562 ; Age-related nuclear cataract of both eyes H25.13 and Hallucinations R44.3 [place] [address] [place] [id number] [place] [address] 35493- 0418 May, [place] [address] [place] [id number] [place] [address] 05544- 5538 May, [facility] [address] [place] [id number] [place] [address] 12323- 8635 19 Mar, 2017 Hyperlipidemia E78.5 and Hypertension I10 [facility] [address] [place] [id number] [place] [address] 40040- 2090 Mar, Hyperlipidemia E78.5 and Hypertension I10 [facility] [address] [place] [id number] [place] [address] 74298- 6427 Mar, [facility] [address] [place] [id number] [place] [address] 88094- 7563 15 Nov, 2016 Hypertension I10 ; 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 ; 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 and 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 [facility] [address] [place] [id number] [place] [address] 16514- 4413 14 Aug, 2016 [facility] [address] 59675- 2258 08 Aug, 2016 [facility] [address] [place] [id number] [place] [address] 45642- 1692 07 Aug, 2016 Hypertension I10 and 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 [facility] [address] [place] [id number] [place] [address] 97550- 4275 14 Jul, 2016 [facility] [address] [place] [id number] [place] [address] 13188- 3268 26 Jun, 2016 [facility] [address] [place] [id number] [place] [address] 45454- 8014 23 Jun, 2016 [facility] [address] [place] [id number] [place] [address] 74293- 3193 23 Jun, 2016 [facility] [address] [place] [id number] [place] [address] 40536- 2929 20 Jun, 2015 [facility] [address] [place] [id number] [place] [address] 20660- 1556 16 Jun, 2016 [facility] [address] [place] [id number] [place] [address] 88024 -4870 May, Urinary frequency R35.0 and Acute cystitis without hematuria N30.00 [place] [address] [place] [id number] [place] [address] 62117- 8094 Jan, [facility] [address] [place] [id number] [place] [address] 42241- 3393 Jan, [place] [address] 58614- 2056 Dec, Hyperlipidemia E78.5 [place] [address] 56246- 2387 Dec, 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 ; Hyperlipidemia E78.5 and Hypertension I10 [place] [address] 15090- 4046 Nov, [place] [address] 51614- 1814 Aug, 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 ; Senile cataracts of both eyes H25.9 and Constipation, unspecified constipation type K59.00 [place] [address] 06684- 4889 Jun, Unspecified psychosis 298.9 and 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 [place] [address] [place] [id number] [place] [address] 43109- 0322 Jun, 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 [place] [address] [place] [id number] [place] [address] 48321- 8328 May, Dementia 294.20 [place] [address] [place] [id number] [place] [address] 66975- 4823 May, Establishing care with new doctor, encounter for V65.8 ; Ataxia 781.3 ; Horizontal nystagmus 379.56 ; Hypertension 401.9 ; Hyperlipidemia 272.4 and History of TIA (transient ischemic attack) V12.54 [place] [address] 24505- 4746 May, [facility] [address] [facility] [id number] [place] [address]- 2877 May, IMMUNIZATIONS No Known Immunizations SOCIAL HISTORY Never Assessed REASON FOR VISIT BP issues being too low-Jovana D[employer] PLAN OF CARE Activity Details Follow Up 4 Weeks Reason:psychosis VITAL SIGNS Height 64 in 2018-04-03 Weight 114.3 lbs 2018-04-03 Temperature 97.8 degrees Fahrenheit 2018-04-03 Heart Rate 68 bpm 2018-04-03 Respiratory Rate 18 2018-04-03 BMI 19.62 kg/m2 2018-04-03 Blood pressure systolic 128 mmHg 2018-04-03 Blood pressure diastolic 78 mmHg 2018-04-03 MEDICATIONS Medication Instructions Dosage Frequency Start Date End Date Duration Status Bactrim DS 800-160 MG Orally Twice a day 1 tablet 12h Active Aricept 10 mg Orally Once a day 1 tablet at bedtime 24h Mar, 30 day(s) Active Fish Oil 1000 MG Orally Twice a day 1 capsule 12h Active Mupirocin 2 % Externally 2 times a day 1 application to affected area 12h Active Vitamin D 1000 UNIT Orally Once a day 1 tablet 24h Active RESULTS No Results PROCEDURES Procedure Date Ordered Result Body Site [facility] VISIT ESTABLISHED PATIENT April 03, 2018 INSTRUCTIONS MEDICATIONS ADMINISTERED No Known Medications [...]
--- OUTSIDE RECORDS SUMMARY | 2018-10-21 07:15 | XMS REPORT ---
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 Active 13940408 Problem Psychosis, unspecified psychosis type F29 Active 47089739 Problem 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 Active 02646156 Problem Unspecified dementia without behavioral disturbance F03.90 Active 32356329 Problem Hallucinations R44.3 Active 2018436 ALLERGIES No Information ENCOUNTERS Encounter Location Date Diagnosis [place] [address] [address]- [address]97 Jun, [place] [address] 03461- 6064 May, [place] [address] 95546- 4033 May, Hallucinations R44.3 ; Hypertension I10 and Toe pain, right M79.674 [place] [address] 26147- 7306 Apr, Hallucinations R44.3 ; 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 and Toe pain, right M79.674 [place] [address] [place] [id number] [place] [address] 32505- 1649 Mar, [place] [address], [place] [address] 19 Mar, 2018 Hallucinations R44.3 [facility] [address] [place] [id number] [place] [address] 09516- 8845 14 Mar, 2018 [facility] [address] [place] [id number] [place] [address] 45015- 0968 13 Mar, 2018 Delusional disorder F22 and Psychosis, unspecified psychosis type F29 [facility] [address] [place] [id number] [place] [address] 73868- 4661 Mar, [facility] [address] [place] [id number] [place] [address] 12782- 3394 Mar, [facility] [address] [place] [id number] [place] [address] 85158- 7312 February, Local infection of the skin and subcutaneous tissue, unspecified L08.9 and Other injury of unspecified body region, initial encounter T14.8XXA [facility] [address] [place] [id number] [address] February, [facility] [address] [place] [id number] [place] [address] 69673- 7996 February, [facility] [address] [place] [id number] [place] [address] 73298- 8453 Jan, Hallucinations R44.3 [facility] [id number] [place] [address] 51366- 9278 Dec, Psychosis, unspecified psychosis type F29 [facility] [address], [place] [address] 0961 15 Dec, 2017 [facility] [address] [place] [id number] [place] [address] 53082- 6930 Dec, [facility] [address], [place] [address] 6145 Nov, Unspecified dementia without behavioral disturbance F03.90 and 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 [facility] [address] [place] [id number] [place] [address] 81484- 9321 Oct, [facility] [address] 60420- 2907 Oct, [facility] [address] [place] [id number] [place] [address] 62570- 7196 Oct, [facility] [address] 57473- 1776 Oct, Dementia, unspecified, without behavioral disturbance F03.90 [place] [address] [place] [id number] [place] [address] 94318- 6542 Sep, Encounter for immunization Z23 and Medicare annual wellness visit, initial Z00.00 [place] [address] [place] [id number] [place] [address] 37253- 5265 Aug, 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 and Hallucinations R44.3 [place] [address] [place] [id number] [place] [address] 94715- 4485 Aug, [place] [address] [place] [id number] [place] [address] 51311- 3906 Jul, Encounter for immunization Z23 [place] [address] [place] [id number] [place] [address] 00688- 3540 Jun, Hallucinations R44.3 [place] [address] [place] [id number] [place] [address] 39816- 2544 05 Jun, 2017 Hallucinations R44.3 [place] [address] [place] [id number] [place] [address] 44143- 2854 30 May, 2017 Arthralgia of left knee M25.562 ; Age-related nuclear cataract of both eyes H25.13 and Hallucinations R44.3 [facility] [address] [place] [id number] [place] [address] 73533- 4936 May, [place] [address] [place] [id number] [place] [address] 92498- 2870 May, [facility] [address] [place] [id number] [place] [address] 30130- 0508 Mar, Hyperlipidemia E78.5 and Hypertension I10 [facility] [address] [place] [id number] [place] [address] 12121- 5015 Mar, Hyperlipidemia E78.5 and Hypertension I10 [facility] [address] [place] [id number] [place] [address] 92748- 9947 Mar, [facility] [address] [place] [id number] [place] [address] 52281- 8633 Nov, Hypertension I10 ; 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 ; 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 and 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 [facility] [address] [place] [id number] [place] [address] 81715- 1414 Aug, [facility] [address] [place] [id number] [place] [address] 18712- 8731 Aug, [facility] [address] [place] [id number] [place] [address] 33979- 7717 Aug, Hypertension I10 and 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 [facility] [address] [place] [id number] [place] [address] 05504- 1250 Jul, [facility] [address] [place] [id number] [place] [address] 23567- 9016 26 Jun, 2016 [facility] [address] [place] [id number] [place] [address] 14959- 0417 23 Jun, 2016 [facility] [address] [place] [id number] [place] [address] 91313- 5031 23 Jun, 2016 [facility] [address] [place] [id number] [place] [address] 55106- 5989 20 Jun, 2015 [facility] [address] [place] [id number] [place] [address] 25506- 6847 16 Jun, 2016 [facility] [address] [place] [id number] [place] [address] 52411 -1671 May, Urinary frequency R35.0 and Acute cystitis without hematuria N30.00 [place] [address] 44054- 8323 Jan, [facility] [address] 41115- 5836 Jan, [place] [address] 52307- 9872 Dec, Hyperlipidemia E78.5 [place] [address] 46350- 9213 Dec, 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 ; Hyperlipidemia E78.5 and Hypertension I10 [place] [address] 77868- 5081 Nov, [place] [address] 40143- 1949 Aug, 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 ; Senile cataracts of both eyes H25.9 and Constipation, unspecified constipation type K59.00 [place] [address] 75279- 2952 Jun, Unspecified psychosis 298.9 and 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 [place] [address] 56256- 0895 Jun, 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 [place] [address] 99809- 3781 May, Dementia 294.20 [place] [address] 25631- 8079 May, Establishing care with new doctor, encounter for V65.8 ; Ataxia 781.3 ; Horizontal nystagmus 379.56 ; Hypertension 401.9 ; Hyperlipidemia 272.4 and History of TIA (transient ischemic attack) V12.54 [place] [address] 93986- 3853 May, [facility] [address] [facility] [id number] [place] [address]- 0949 May, IMMUNIZATIONS No Known Immunizations SOCIAL HISTORY [...] left hip pain, age-indeterminate pubic rami fracture-- [facility] 07/07/16
--- OUTSIDE RECORDS SUMMARY | 2018-10-21 07:15 | XMS REPORT ---
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 99624354 Problem Psychosis, unspecified psychosis type F29 Active 80384819 Problem 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 Active 02298675 Problem Unspecified dementia without behavioral disturbance F03.90 Active 79178559 Problem Hallucinations R44.3 Active 3595928 ALLERGIES No Information ENCOUNTERS Encounter Location Date Diagnosis [place] [address] 01443- 4222 Jun, [place] [address] 46634- 8826 May, [place] [address] 27949- 5101 May, Hallucinations R44.3 ; Hypertension I10 and Toe pain, right M79.674 [place] [address] 17305- 2121 Apr, Hallucinations R44.3 ; 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 and Toe pain, right M79.674 [place] [address] [place] [id number] [place] [address] 37112- 5868 Mar, [place] [address], [place] [address]- 9108 19 Mar, 2018 Hallucinations R44.3 [facility] [address] [place] [id number] [place] [address] 20629- 2163 14 Mar, 2018 [facility] [address] [place] [id number] [place] [address] 45196- 5159 13 Mar, 2018 Delusional disorder F22 and Psychosis, unspecified psychosis type F29 [facility] [address] [place] [id number] [place] [address] 78440- 7705 Mar, [facility] [address] [place] [id number] [place] [address] 63712- 0561 Mar, [facility] [address] [place] [id number] [place] [address] 91750- 9488 February, Local infection of the skin and subcutaneous tissue, unspecified L08.9 and Other injury of unspecified body region, initial encounter T14.8XXA [facility] [address] [place] [id number] [address]- 7750 February, [facility] [address] [place] [id number] [place] [address] 22462- 1152 February, [facility] [address] [place] [id number] [place] [address] 75184- 3848 Jan, Hallucinations R44.3 [facility] [id number] [place] [address] 60669- 7593 Dec, Psychosis, unspecified psychosis type F29 [facility] [address], [place] [address]- 1290 15 Dec, 2017 [facility] [address] [place] [id number] [place] [address] 71895- 2904 Dec, [facility] [address], [place] [address]- 2198 Nov, Unspecified dementia without behavioral disturbance F03.90 and 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 [facility] [address] [place] [id number] [place] [address] 37929- 8686 Oct, [facility] [address] 93892- 5776 Oct, [facility] [address] [place] [id number] [place] [address] 26449- 6822 Oct, [facility] [address] 77133- 4936 Oct, Dementia, unspecified, without behavioral disturbance F03.90 [place] [address] [place] [id number] [place] [address] 60659- 3040 Sep, Encounter for immunization Z23 and Medicare annual wellness visit, initial Z00.00 [place] [address] [place] [id number] [place] [address] 70428- 0189 Aug, 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 and Hallucinations R44.3 [place] [address] [place] [id number] [place] [address] 85114- 1930 Aug, [place] [address] [place] [id number] [place] [address] 36964- 7942 Jul, Encounter for immunization Z23 [place] [address] [place] [id number] [place] [address] 60424- 7853 Jun, Hallucinations R44.3 [place] [address] [place] [id number] [place] [address] 23866- 4802 05 Jun, 2017 Hallucinations R44.3 [place] [address] [place] [id number] [place] [address] 28894- 2558 30 May, 2017 Arthralgia of left knee M25.562 ; Age-related nuclear cataract of both eyes H25.13 and Hallucinations R44.3 [facility] [address] [place] [id number] [place] [address] 01688- 8277 May, [place] [address] [place] [id number] [place] [address] 57191- 7563 May, [facility] [address] [place] [id number] [place] [address] 13694- 2808 Mar, Hyperlipidemia E78.5 and Hypertension I10 [facility] [address] [place] [id number] [place] [address] 40268- 1413 Mar, Hyperlipidemia E78.5 and Hypertension I10 [facility] [address] [place] [id number] [place] [address] 23705- 3222 Mar, [facility] [address] [place] [id number] [place] [address] 31570- 7781 Nov, Hypertension I10 ; 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 ; 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 and 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 [facility] [address] [place] [id number] [place] [address] 64640- 7594 Aug, [facility] [address] [place] [id number] [place] [address] 30098- 3132 Aug, [facility] [address] [place] [id number] [place] [address] 45505- 2885 Aug, Hypertension I10 and 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 [facility] [address] [place] [id number] [place] [address] 86623- 8731 Jul, [facility] [address] [place] [id number] [place] [address] 27718- 2997 26 Jun, 2016 [facility] [address] [place] [id number] [place] [address] 81025- 4869 23 Jun, 2016 [facility] [address] [place] [id number] [place] [address] 67677- 1104 23 Jun, 2016 [facility] [address] [place] [id number] [place] [address] 83282- 1400 20 Jun, 2015 [facility] [address] [place] [id number] [place] [address] 17405- 8162 16 Jun, 2016 [facility] [address] [place] [id number] [place] [address] 47193 -9650 May, Urinary frequency R35.0 and Acute cystitis without hematuria N30.00 [place] [address] 22045- 6689 Jan, [facility] [address] 00259- 8893 Jan, [place] [address] 47807- 7983 Dec, Hyperlipidemia E78.5 [place] [address] 48957- 0122 Dec, 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 ; Hyperlipidemia E78.5 and Hypertension I10 [place] [address] 31542- 3168 Nov, [place] [address] 85187- 4327 Aug, 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 ; Senile cataracts of both eyes H25.9 and Constipation, unspecified constipation type K59.00 [place] [address] 21869- 4645 Jun, Unspecified psychosis 298.9 and 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 [id number] [place] [address]- 7740 May, IMMUNIZATIONS No Known Immunizations SOCIAL HISTORY Never Assessed REASON FOR VISIT Medication Side Effects PLAN OF CARE VITAL SIGNS MEDICATIONS Medication Instructions Dosage Frequency Start Date End Date Duration Status Lexapro 10 mg Orally Once a day 1 tablet 24h Mar, 90 days Active RESULTS No Results PROCEDURES No Known [...] left hip pain, age-indeterminate pubic rami fracture-- [facility] 07/07/16
--- OUTSIDE RECORDS SUMMARY | 2018-10-21 07:16 | XMS REPORT ---
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 79026484 Problem Psychosis, unspecified psychosis type F29 Active 63736642 Problem 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 Active 98806252 Problem Unspecified dementia without behavioral disturbance F03.90 Active 15062355 Problem Hallucinations R44.3 Active 7406385 ALLERGIES No Information ENCOUNTERS Encounter Location Date Diagnosis [place] [address] [address]- [address]69 Jun, [place] [address] 92910- 6478 May, [place] [address] 92457- 0478 May, Hallucinations R44.3 ; Hypertension I10 and Toe pain, right M79.674 [place] [address] 72681- 6375 Apr, Hallucinations R44.3 ; 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 and Toe pain, right M79.674 [place] [address] [place] [id number] [place] [address] 09970- 9976 Mar, [place] [address] [address] 7665 19 Mar, 2018 Hallucinations R44.3 [facility] [address] [place] [id number] [place] [address] 40449- 3754 14 Mar, 2018 [facility] [address] [place] [id number] [place] [address] 97285- 2445 13 Mar, 2018 Delusional disorder F22 and Psychosis, unspecified psychosis type F29 [facility] [address] [place] [id number] [place] [address] 49555- 8268 Mar, [facility] [address] [place] [id number] [place] [address] 38077- 4872 Mar, [facility] [address] [place] [id number] [place] [address] 48079- 4179 February, Local infection of the skin and subcutaneous tissue, unspecified L08.9 and Other injury of unspecified body region, initial encounter T14.8XXA [facility] [address] [place] [id number] [address] 74[address] February, [facility] [address] [place] [id number] [place] [address] 27467- 2106 February, [facility] [address] [place] [id number] [place] [address] 09692- 5140 Jan, Hallucinations R44.3 [facility] [id number] [place] [address] 42832- 2913 Dec, Psychosis, unspecified psychosis type F29 [facility] [address] [address] 4198 15 Dec, 2017 [facility] [address] [place] [id number] [place] [address] 20319- 2064 Dec, [facility] [address] [address] 7009 Nov, Unspecified dementia without behavioral disturbance F03.90 and 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 [place] [address] [place] [id number] [place] [address] 66460- 0273 Oct, [place] [address] 37366- 4228 Oct, [facility] [address] [place] [id number] [place] [address] 43101- 1191 Oct, [place] [address] 36875- 8833 Oct, Dementia, unspecified, without behavioral disturbance F03.90 [place] [address] [place] [id number] [place] [address] 99826- 1216 Sep, Medicare annual wellness visit, initial Z00.00 and Encounter for immunization Z23 [place] [address] [place] [id number] [place] [address] 33564- 0260 Aug, 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 and Hallucinations R44.3 [place] [address] [place] [id number] [place] [address] 07800- 5235 Aug, [place] [address] [place] [id number] [place] [address] 22841- 0446 Jul, Encounter for immunization Z23 [place] [address] [place] [id number] [place] [address] 73172- 4096 Jun, Hallucinations R44.3 [place] [address] [place] [id number] [place] [address] 99666- 3520 05 Jun, 2017 Hallucinations R44.3 [place] [address] [place] [id number] [place] [address] 77125- 2099 May, Arthralgia of left knee M25.562 ; Age-related nuclear cataract of both eyes H25.13 and Hallucinations R44.3 [place] [address] [place] [id number] [place] [address] 73245- 1781 May, [place] [address] [place] [id number] [place] [address] 39531- 4722 May, [facility] [address] [place] [id number] [place] [address] 78441- 2702 Mar, Hyperlipidemia E78.5 and Hypertension I10 [facility] [address] [place] [id number] [place] [address] 99714- 2486 Mar, Hyperlipidemia E78.5 and Hypertension I10 [facility] [address] [place] [id number] [place] [address] 33473- 4533 Mar, [facility] [address] [place] [id number] [place] [address] 48319- 0599 Nov, Hypertension I10 ; 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 ; 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 and 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 [facility] [address] [place] [id number] [place] [address] 78210- 9714 Aug, [facility] [address] [place] [id number] [place] [address] 85345- 3745 Aug, [facility] [address] [place] [id number] [place] [address] 35546- 4800 Aug, Hypertension I10 and 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 [facility] [address] [place] [id number] [place] [address] 37242- 4266 Jul, [facility] [address] [place] [id number] [place] [address] 95252- 9596 26 Jun, 2016 [facility] [address] [place] [id number] [place] [address] 22137- 1204 23 Jun, 2016 [facility] [address] [place] [id number] [place] [address] 37251- 9092 23 Jun, 2016 [facility] [address] [place] [id number] [place] [address] 02410- 2811 20 Jun, 2015 [facility] [address] [place] [id number] [place] [address] 34143- 1306 16 Jun, 2016 [facility] [address] [place] [id number] [place] [address] 25783 -8936 May, Urinary frequency R35.0 and Acute cystitis without hematuria N30.00 [place] [address] 97085- 7127 Jan, [facility] [address] 41378- 3950 Jan, [place] [address] 56870- 9689 Dec, Hyperlipidemia E78.5 [place] [address] 42648- 5333 Dec, 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 ; Hyperlipidemia E78.5 and Hypertension I10 [place] [address] 91477- 7952 Nov, [place] [address] 49317- 4500 Aug, 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 ; Senile cataracts of both eyes H25.9 and Constipation, unspecified constipation type K59.00 [place] [address] 73360- 9149 Jun, Unspecified psychosis 298.9 and 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 [place] [address] 27829- 3018 Jun, 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 [place] [address] 32182- 8533 May, Dementia 294.20 [place] [address] 85333- 9202 May, Establishing care with new doctor, encounter for V65.8 ; Ataxia 781.3 ; Horizontal nystagmus 379.56 ; Hypertension 401.9 ; Hyperlipidemia 272.4 and History of TIA (transient ischemic attack) V12.54 [place] [address] 31519- 9223 May, [facility] [address] [facility] [id number] [address]- 0584 May, IMMUNIZATIONS No Known Immunizations SOCIAL HISTORY Never Assessed REASON FOR VISIT Hospice question PLAN OF CARE VITAL SIGNS MEDICATIONS Unknown [...] left hip pain, age-indeterminate pubic rami fracture-- [facility] 07/07/16
--- OUTSIDE RECORDS SUMMARY | 2018-10-21 07:16 | XMS REPORT ---
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 Active 06142971 Problem Psychosis, unspecified psychosis type F29 Active 51594681 Problem 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 Active 18864083 Problem Unspecified dementia without behavioral disturbance F03.90 Active 57986917 Problem Hallucinations R44.3 Active 1428750 ALLERGIES No Information ENCOUNTERS Encounter Location Date Diagnosis [place] [address] [place] [id number] [place] [address] 09063- 7936 Jun, [place] [address] [place] [address] 87068- 5827 May, [facility] [address] [place] [id number] [place] [address] 65364- 1273 May, Hallucinations R44.3 ; Hypertension I10 and Toe pain, right M79.674 [facility] [address] [place] [id number] [place] [address] 90567- 1715 Apr, Hallucinations R44.3 ; 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 and Toe pain, right M79.674 [facility] [address] [place] [id number] [address]- 1648 Mar, [facility] [address] [place] [id number] [address]- 3099 19 Mar, 2018 Hallucinations R44.3 [facility] [address] [place] [id number] [place] [address] 28731- 2557 14 Mar, 2018 [facility] [address] [place] [id number] [place] [address] 31031- 4613 Mar, Delusional disorder F22 and Psychosis, unspecified psychosis type F29 [facility] [address] [place] [id number] [place] [address] 37187- 2926 Mar, [facility] [address] [place] [id number] [place] [address] 98089- 9268 Mar, [facility] [address] [place] [id number] [place] [address] 54889- 8818 February, Local infection of the skin and subcutaneous tissue, unspecified L08.9 and Other injury of unspecified body region, initial encounter T14.8XXA [facility] [address] [place] [address] 06989- 9161 February, [facility] [address] [place] [address] 53955- 3661 February, [facility] [address] [place] [id number] [place] [address] 16556- 8470 Jan, Hallucinations R44.3 [facility] [address] [place] [address] 73463- 3002 Dec, Psychosis, unspecified psychosis type F29 [facility] [address], [place] [address]- 9709 15 Dec, 2017 [facility] [address] [place] [id number] [place] [address] 10796- 5571 Dec, [facility] [address] [place] [address] 67056- 6171 Nov, Unspecified dementia without behavioral disturbance F03.90 and 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00 and Encounter for immunization Z23 [place] [address] [place] [id number] [place] [address] 18889- 5418 Aug, 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 and Hallucinations R44.3 [place] [address] 50165- 5760 Aug, [place] [address] [place] [id number] [place] [address] 82546- 0156 Jul, Encounter for immunization Z23 [place] [address] [place] [id number] [place] [address] 25592- 8170 Jun, Hallucinations R44.3 [place] [address] [place] [id number] [place] [address] 95247- 1216 Jun, Hallucinations R44.3 [place] [address] [place] [id number] [place] [address] 13035- 7963 May, Arthralgia of left knee M25.562 ; Age-related nuclear cataract of both eyes H25.13 and Hallucinations R44.3 [place] [address] [place] [id number] [place] [address] 08189- 3523 May, [place] [address] [place] [id number] [place] [address] 02250- 4473 May, [place] [address] [place] [id number] [place] [address] 24765- 4272 19 Mar, 2017 Hyperlipidemia E78.5 and Hypertension I10 [facility] [address] [place] [id number] [place] [address] 02006- 6656 16 Mar, 2017 Hyperlipidemia E78.5 and Hypertension I10 [facility] [address] [place] [id number] [place] [address] 70241- 3432 Mar, [facility] [address] [place] [id number] [place] [address] 76591- 9468 15 Nov, 2016 Hypertension I10 ; 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 ; 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 and 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 [facility] [address] [place] [id number] [place] [address] 77971- 8359 14 Aug, 2016 [facility] [address] [place] [id number] [place] [address] 03815- 5084 08 Aug, 2016 [facility] [address] [place] [id number] [place] [address] 00476- 6657 Aug, Hypertension I10 and 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 [facility] [address] [place] [id number] [place] [address] 83094- 6108 14 Jul, 2016 [facility] [address] [place] [id number] [place] [address] 40422- 9595 26 Jun, 2016 [facility] [address] [place] [id number] [place] [address] 67510- 4160 23 Jun, 2016 [facility] [address] [place] [id number] [place] [address] 19530- 8596 23 Jun, 2016 [facility] [address] [place] [id number] [place] [address] 33396- 6105 20 Jun, 2016 [facility] [address] [place] [address] 85372- 8206 16 Jun, 2016 [facility] [address] [place] [id number] [place] [address] 68998 -6164 May, Urinary frequency R35.0 and Acute cystitis without hematuria N30.00 [place] [address] [place] [id number] [place] [address] 30309- 3174 Jan, [facility] [address] [place] [id number] [place] [address] 20398- 2735 Jan, [place] [address] 84170- 8749 Dec, Hyperlipidemia E78.5 [place] [address] 46141- 7586 Dec, 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 ; Hyperlipidemia E78.5 and Hypertension I10 [place] [address] [place] [id number] [place] [address] 19452- 1743 Nov, [place] [address] [place] [id number] [place] [address] 04041- 4333 Aug, 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 ; Senile cataracts of both eyes H25.9 and Constipation, unspecified constipation type K59.00 [place] [address] [place] [id number] [place] [address] 40024- 1560 Jun, Unspecified psychosis 298.9 and 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 [place] [address] [place] [id number] [place] [address] 17371- 6029 Jun, 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 [place] [address] [place] [id number] [place] [address] 40921- 2354 May, Dementia 294.20 [place] [address] [place] [id number] [place] [address] 12343- 6391 May, Establishing care with new doctor, encounter for V65.8 ; Ataxia 781.3 ; Horizontal nystagmus 379.56 ; Hypertension 401.9 ; Hyperlipidemia 272.4 and History of TIA (transient ischemic attack) V12.54 [place] [address] [place] [id number] [place] [address] 73249- 1295 May, [facility] [address] [facility] [id number] [place] [address]- 0292 May, IMMUNIZATIONS No Known Immunizations SOCIAL HISTORY Never Assessed REASON FOR VISIT phone call PLAN OF CARE VITAL SIGNS MEDICATIONS [...] left hip pain, age-indeterminate pubic rami fracture-- [facility] 07/07/16
--- OUTSIDE RECORDS SUMMARY | 2018-10-21 07:16 | XMS REPORT ---
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 98559086 Problem Psychosis, unspecified psychosis type F29 Active 32176548 Problem 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 Active 27192386 Problem Unspecified dementia without behavioral disturbance F03.90 Active 58748478 Problem Hallucinations R44.3 Active 8605404 ALLERGIES No Known Allergies ENCOUNTERS Encounter Location Date Diagnosis [place] [id number] [place] [address] 76091- 0075 Jun, [place] [id number] [place] [address] 11033- 4287 May, [facility] [id number] [place] [address] 76347- 6547 May, Hallucinations R44.3 ; Hypertension I10 and Toe pain, right M79.674 [facility] [id number] [place] [address] 12987- 1969 Apr, Hallucinations R44.3 ; 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 and Toe pain, right M79.674 [facility] [id number] [address] 4740 Mar, [facility] [id number] [address] 4195 19 Mar, 2018 Hallucinations R44.3 [facility] [id number] [address]- 4734 14 Mar, 2018 [facility] [id number] [address] 7723 Mar, Delusional disorder F22 and Psychosis, unspecified psychosis type F29 [facility] [id number] [address] 3009 Mar, [facility] [id number] [address]- 6676 Mar, [facility] [id number] [place] [address] 72040- 1417 February, Local infection of the skin and subcutaneous tissue, unspecified L08.9 and Other injury of unspecified body region, initial encounter T14.8XXA [facility] [id number] [address] 8144 February, [facility] [id number] [address]- 2246 February, [facility] [id number] [address]- 1475 Jan, Hallucinations R44.3 [facility] [id number] [address]- 2264 Dec, Psychosis, unspecified psychosis type F29 [facility] [id number] [address]- 5785 15 Dec, 2017 [facility] [id number] [address]- 7305 Dec, [facility] [address] [address] 2232 Nov, Unspecified dementia without behavioral disturbance F03.90 and 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 [facility] [id number] [place] [address] 31045- 6601 Oct, [facility] [id number] [place] [address] 46039- 0432 Oct, [facility] [id number] [place] [address] 55477- 5308 Oct, [facility] [address] 35183- 2779 Oct, Dementia, unspecified, without behavioral disturbance F03.90 [facility] [id number] [place] [address] 49107- 2799 Sep, Encounter for immunization Z23 and Medicare annual wellness visit, initial Z00.00 [place] [id number] [place] [address] 32765- 2499 Aug, 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 and Hallucinations R44.3 [place] [address] 29875- 2995 Aug, [facility] [id number] [place] [address] 91964- 1154 Jul, Encounter for immunization Z23 [facility] [id number] [place] [address] 17461- 7937 Jun, Hallucinations R44.3 [place] [id number] [place] [address] 64918- 5989 Jun, Hallucinations R44.3 [facility] [id number] [place] [address] 56076- 6605 May, Arthralgia of left knee M25.562 ; Age-related nuclear cataract of both eyes H25.13 and Hallucinations R44.3 [facility] [id number] [place] [address] 71524- 6005 May, [facility] [id number] [place] [address] 53172- 9606 May, [place] [address] [address]- 9611 19 Mar, 2017 Hyperlipidemia E78.5 and Hypertension I10 [facility] [id number] [place] [address] 16709- 6551 16 Mar, 2017 Hyperlipidemia E78.5 and Hypertension I10 [facility] [id number] [place] [address] 75523- 3111 Mar, [facility] [id number] [place] [address] 52072- 7825 15 Nov, 2016 Hypertension I10 ; 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 ; 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 and 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 [facility] [id number] [place] [address] 79937- 7706 14 Aug, 2016 [facility] [id number] [place] [address] 44127- 7537 08 Aug, 2016 [facility] [id number] [place] [address] 57683- 9099 Aug, Hypertension I10 and 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 [facility] [id number] [place] [address] 85077- 9620 14 Jul, 2016 [facility] [id number] [place] [address] 30177- 4302 26 Jun, 2016 [facility] [id number] [place] [address] 42447- 6597 23 Jun, 2016 [facility] [id number] [place] [address] 52208- 9890 23 Jun, 2016 [facility] [id number] [place] [address] 11496- 5507 20 Jun, 2016 [facility] [address] [place] [address] 36845- 9463 16 Jun, 2016 [facility] [id number] [place] [address] 19524 -8431 May, Urinary frequency R35.0 and Acute cystitis without hematuria N30.00 [place] [id number] [place] [address] 26720- 4226 Jan, [facility] [id number] [place] [address] 66852- 6909 Jan, [place] [address] 03054- 6422 Dec, Hyperlipidemia E78.5 [place] [address] 63765- 6446 Dec, 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 ; Hyperlipidemia E78.5 and Hypertension I10 [place] [id number] [place] [address] 76794- 0678 Nov, [place] [id number] [place] [address] 57649- 1017 Aug, 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 ; Senile cataracts of both eyes H25.9 and Constipation, unspecified constipation type K59.00 [place] [id number] [place] [address] 13301- 7335 Jun, Unspecified psychosis 298.9 and 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 [place] [id number] [place] [address] 22889- 2733 Jun, 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 [place] [id number] [place] [address] 11547- 5434 May, Dementia 294.20 [place] [id number] [place] [address] 87145- 4277 May, Establishing care with new doctor, encounter for V65.8 ; Ataxia 781.3 ; Horizontal nystagmus 379.56 ; Hypertension 401.9 ; Hyperlipidemia 272.4 and History of TIA (transient ischemic attack) V12.54 [place] [id number] [place] [address] 03951- 7322 May, [facility] [address] [facility] [id number] [address]- 6991 May, IMMUNIZATIONS No Known Immunizations SOCIAL HISTORY Never Assessed REASON FOR VISIT foot infection, right 4th toe swollen and draining x 6 months----Kyle, 6 weeks ago she dropped walker on wound and has been increasingly painful, was seen at [facility] urgent care yesterday was given a pill and a cream and was told to f /u with PCP, filled meds at [facility] Activity Details Follow Up 1 Week Reason:w/ PCP VITAL SIGNS Height 64 in 2018-03-12 Weight 113 lbs 2018-03-12 Temperature 97.6 degrees Fahrenheit 2018-03-12 Heart Rate 80 bpm 2018-03-12 Respiratory Rate 20 2018-03-12 BMI 19.39 kg/m2 2018-03-12 Blood pressure systolic 128 mmHg 2018-03-12 Blood pressure diastolic 88 mmHg 2018-03-12 MEDICATIONS Medication Instructions Dosage Frequency Start Date End Date Duration Status Lexapro 10 mg Orally Once a day 1/2 tablet 24h Dec, Not- Taking Indomethacin 50 mg Orally Three times a day 1 capsule with food or milk 8h Active Bactrim DS 800-160 MG Orally Twice a day 1 tablet 12h Active Fish Oil 1000 MG Orally Twice a day 1 capsule 12h Active Vitamin D 1000 UNIT Orally Once a day 1 tablet 24h Active Mupirocin 2 % Externally 2 times a day 1 application to affected area 12h Active RESULTS Name Result Date Reference Range Xray : Foot, Right 3 views (IN HOUSE) 2018-03-12 PROCEDURES Procedure Date Ordered Result Body Site X-RAY EXAM OF FOOT March 12, 2018 [facility] VISIT ESTABLISHED PATIENT March 12, 2018 INSTRUCTIONS MEDICATIONS ADMINISTERED No Known Medications [...]
--- OUTSIDE RECORDS SUMMARY | 2018-10-21 07:16 | XMS REPORT ---
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 89457290 Problem Psychosis, unspecified psychosis type F29 Active 05311626 Problem 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 Active 10275398 Problem Unspecified dementia without behavioral disturbance F03.90 Active 51075685 Problem Hallucinations R44.3 Active 1277036 ALLERGIES No Information ENCOUNTERS Encounter Location Date Diagnosis [place] [address] 77730- 1150 Jun, [place] [address] 66655- 3445 May, [place] [address] 68489- 6748 May, Hallucinations R44.3 ; Hypertension I10 and Toe pain, right M79.674 [place] [address] 90281- 6801 Apr, Hallucinations R44.3 ; 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 and Toe pain, right M79.674 [place] [address] [place] [id number] [place] [address] 96909- 9884 Mar, [place] [address] [address]- 3723 19 Mar, 2018 Hallucinations R44.3 [facility] [id number] [place] [address] 24530- 3025 14 Mar, 2018 [facility] [id number] [place] [address] 83067- 5923 13 Mar, 2018 Delusional disorder F22 and Psychosis, unspecified psychosis type F29 [facility] [id number] [place] [address] 90322- 9017 Mar, [facility] [id number] [place] [address] 50656- 8709 Mar, [facility] [id number] [place] [address] 97776- 7022 February, Local infection of the skin and subcutaneous tissue, unspecified L08.9 and Other injury of unspecified body region, initial encounter T14.8XXA [facility] [id number] [address]- 7677 February, [facility] [id number] [place] [address] 22684- 8507 February, [facility] [id number] [place] [address] 64522- 5675 Jan, Hallucinations R44.3 [facility] [address] [place] [address] 43666- 2257 Dec, Psychosis, unspecified psychosis type F29 [facility] [address] [address]- 4589 15 Dec, 2017 [facility] [id number] [place] [address] 76996- 5626 Dec, [facility] [address] [address]- 3233 Nov, Unspecified dementia without behavioral disturbance F03.90 and 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 [facility] [address] [id number] [place] [address] 50807- 3701 Oct, [facility] [address] 78512- 4429 Oct, [facility] [address] [id number] [place] [address] 45626- 6534 Oct, [facility] [address] 70654- 3173 Oct, Dementia, unspecified, without behavioral disturbance F03.90 [place] [id number] [place] [address] 52175- 1086 Sep, Encounter for immunization Z23 and Medicare annual wellness visit, initial Z00.00 [place] [id number] [place] [address] 93825- 0439 Aug, 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 and Hallucinations R44.3 [place] [id number] [place] [address] 21508- 5908 Aug, [place] [id number] [place] [address] 56659- 3062 Jul, Encounter for immunization Z23 [place] [id number] [place] [address] 25836- 6047 Jun, Hallucinations R44.3 [place] [id number] [place] [address] 68115- 6952 05 Jun, 2017 Hallucinations R44.3 [place] [id number] [place] [address] 51564- 1857 30 May, 2017 Arthralgia of left knee M25.562 ; Age-related nuclear cataract of both eyes H25.13 and Hallucinations R44.3 [facility] [id number] [place] [address] 61254- 2818 May, [place] [id number] [place] [address] 09504- 2144 May, [facility] [id number] [place] [address] 50691- 1977 Mar, Hyperlipidemia E78.5 and Hypertension I10 [facility] [id number] [place] [address] 40754- 0122 Mar, Hyperlipidemia E78.5 and Hypertension I10 [facility] [id number] [place] [address] 51310- 4898 Mar, [facility] [id number] [place] [address] 66008- 1642 Nov, Hypertension I10 ; 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 ; 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 and 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 [facility] [address] [place] [id number] [place] [address] 06853- 2844 Aug, [facility] [id number] [place] [address] 64424- 9506 Aug, [facility] [address] [id number] [place] [address] 83553- 2754 Aug, Hypertension I10 and 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 [facility] [id number] [place] [address] 05154- 8783 Jul, [facility] [id number] [place] [address] 48846- 7752 26 Jun, 2016 [facility] [id number] [place] [address] 27911- 5510 23 Jun, 2016 [facility] [id number] [place] [address] 29111- 3739 23 Jun, 2016 [facility] [id number] [place] [address] 76985- 8044 20 Jun, 2015 [facility] [id number] [place] [address] 03426- 7568 16 Jun, 2016 [facility] [id number] [place] [address] 77778 -2223 May, Urinary frequency R35.0 and Acute cystitis without hematuria N30.00 [place] [address] 45936- 4829 Jan, [facility] [address] 44770- 1607 Jan, [place] [address] 18379- 2067 Dec, Hyperlipidemia E78.5 [place] [address] 45812- 8004 Dec, 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 ; Hyperlipidemia E78.5 and Hypertension I10 [place] [address] 53709- 8174 Nov, [place] [address] 30544- 2522 Aug, 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 ; Senile cataracts of both eyes H25.9 and Constipation, unspecified constipation type K59.00 [place] [address] 25587- 8918 Jun, Unspecified psychosis 298.9 and 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 [place] [address] 50432- 4168 Jun, 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 [place] [address] 72512- 9638 May, Dementia 294.20 [place] [address] 25891- 4478 May, Establishing care with new doctor, encounter for V65.8 ; Ataxia 781.3 ; Horizontal nystagmus 379.56 ; Hypertension 401.9 ; Hyperlipidemia 272.4 and History of TIA (transient ischemic attack) V12.54 [place] [address] 28366- 1022 May, [facility] [address] [facility] [id number] [place] [address]- 4155 May, IMMUNIZATIONS No Known Immunizations SOCIAL HISTORY Never Assessed REASON FOR VISIT Home Health Order Request PLAN OF CARE VITAL SIGNS [...] pain, age-indeterminate pubic rami fracture-- [facility] 07/07/16
[2018-10-21] MEDS ORDERED: NS IV 1000 ML 1,000 ML IV STA (07:20)
[2018-10-21] MEDS ORDERED: ONDANSETRON 4 MG/2 ML (SDV) Z0FRAN IVP ONE (07:30)
[2018-10-21 07:37] LABS: BILIRUBIN,URINE NEGATIVE (NEGATIVE); CLARITY,URINE CLEAR; COLOR,URINE YELLOW; GLUCOSE, URINE (UA) NEGATIVE (NEGATIVE); KETONES,URINE NEGATIVE (NEGATIVE); LEUKOCYTE ESTERASE ,URINE NEGATIVE (NEGATIVE); NITRITE,URINE NEGATIVE (NEGATIVE); PH,URINE 8 (5-9); PROTEIN,URINE 1+ (NEGATIVE); UROBILINOGEN,URINE NORMAL (NORMAL)
[2018-10-21 07:42] LABS: BASOPHILS % (AUTO) 0 % (0-10); EOSINOPHILS % (AUTO) 0 % (0-10); HEMATOCRIT 36 % (35-52); HEMOGLOBIN 11.8 G/DL (11.5-16.0); LYMPHOCYTES # (AUTO) 1.8 X 10^3 (1.0-4.0); LYMPHOCYTES % (AUTO) 14 % (12-44); MEAN CORPUSCULAR HEMOGLOBIN 30 PG (25-34); MEAN CORPUSCULAR HGB CONC 33 G/DL (32-36); MEAN CORPUSCULAR VOLUME 90 FL (80-99); MEAN PLATELET VOLUME 9.3 FL (7.4-10.4); MONOCYTES # (AUTO) 0.6 X 10^3 (0.0-1.0); MONOCYTES % (AUTO) 5 % (0-12); NEUTROPHILS # (AUTO) 10.5 X 10^3 (1.8-7.8); NEUTROPHILS % (AUTO) 81 % (42-75); PLATELET COUNT 226 10^3/uL (130-400); RED BLOOD COUNT 3.96 10^6/uL (4.35-5.85); RED CELL DISTRIBUTION WIDTH 15.1 % (10.0-14.5); WHITE BLOOD COUNT 12.9 10^3/uL (4.3-11.0)
[2018-10-21 07:44] LABS: BACTERIA,URINE NEGATIVE /HPF; RBC,URINE 0-2 /HPF
[2018-10-21 07:55] LABS: ALANINE AMINOTRANSFERASE 24 U/L (0-55); ALKALINE PHOSPHATASE 107 U/L (40-136); BILIRUBIN,TOTAL 0.8 MG/DL (0.1-1.0); BUN/CREATININE RATIO 28; CALCIUM 9.5 MG/DL (8.5-10.1); CARBON DIOXIDE 20 MMOL/L (21-32); CHLORIDE 101 MMOL/L (98-107); CREATININE SERUM 1.04 MG/DL (0.60-1.30); GFR ESTIMATED 51; GLUCOSE 158 MG/DL (70-105); POTASSIUM 3.2 MMOL/L (3.6-5.0); SODIUM 140 MMOL/L (135-145); TOTAL PROTEIN 7.3 GM/DL (6.4-8.2)
--- NOTE | 2018-10-21 07:57 | ED GI ---
General Chief Complaint: Abdominal/GI Problems Stated Complaint: V/D Source of Information: Patient, EMS Exam Limitations: Physical Impairments History of Present Illness Date Seen by Provider: Oct 21, 2018 Time Seen by Provider: 07:07 Initial Comments Here with report of nausea, vomiting and diarrhea. Onset sometime this morning. EMS was activated for the persistent vomiting. Patient is elderly and lives with her disabled son who has hearing impairment. She was seen in the hospital a couple weeks ago for multiple rib fractures. Patient reports vomiting. EMS did establish IV and gave Zofran 4 mg IV which helped a little bit but still nauseated currently. Denies significant pain at this point. Timing/Duration: 12 Hours Severity/Quality: Moderate, Cramping Location: Generalized Abdomen Radiation: No Radiation Activities at Onset: None Modifying Factors: Worsens With Eating; Improves With Vomiting Associated Symptoms: No Back Pain, No Chest Pain, No Fever/Chills; Nausea/ Vomiting; No Shortness of Air; Weakness Allergies and Home Medications Allergies Coded Allergies: No Known Drug Allergies (Verified , 07/28/16) Home Medications Acetaminophen 650 Mg Tablet.er, 650 MG PO Q8H Prescribed by: LARA BARRIOS on 10/04/18 1443 Aspirin 81 Mg Tablet.dr, 81 MG PO DAILY, (Reported) Escitalopram Oxalate 10 Mg Tablet, 10 MG PO DAILY, (Reported) [place] 3 Polyunsat Fatty Acids 1,000 Mg Cap, 1,000 MG PO DAILY, (Reported) Quetiapine Fumarate 50 Mg Tab.er.24h, 50 MG PO HS, (Reported) Patient Home Medication List Home Medication List Reviewed: Yes Review of Systems Review of Systems Constitutional: see HPI; No chills, No fever EENTM: No Symptoms Reported Respiratory: Denies Cough, Denies Shortness of Air Cardiovascular: No Symptoms Reported Gastrointestinal: See HPI, Abdominal Pain, Diarrhea, Nausea, Vomiting Genitourinary: No Symptoms Reported Musculoskeletal: No back pain; muscle weakness Skin: no symptoms reported Psychiatric/Neurological: Denies Headache; Weakness All Other Systems Reviewed Negative Unless Noted: Yes Past Sgaszhs-Itjiyv-Aqnypz Hx Past Med/Social Hx: Reviewed Nursing Past Med/Soc Hx Patient Social History Alcohol Use: Denies Use Recreational Drug Use: No Smoking Status: Never a Smoker Recent Hopitalizations: No Physical Abuse: No Sexual Abuse: No Mistreated: No Fear: No Immunizations Up To Date Tetanus Booster (TDap): Unknown PED Vaccines UTD: No Date of Pneumonia Vaccine: Jul 22, 2017 Date of Influenza Vaccine: Jul 22, 2017 Seasonal Allergies Seasonal Allergies: No Past Medical History Surgeries: No Respiratory: No Currently Using CPAP: No Currently Using BIPAP: No Cardiac: Yes (SEES DR. MOTTA UNSURE WHY) Hypertension Neurological: Yes Dementia Reproductive Disorders: No Female Reproductive Disorders: Denies Sexually Transmitted Disease: No HIV/AIDS: No Genitourinary: Yes UTI-Chronic Gastrointestinal: No Musculoskeletal: Yes Fractures, Gout Endocrine: Yes Hyperthyroidism HEENT: Yes Cataract Loss of Vision: Denies Hearing Impairment: Hard of Hearing Cancer: No Psychosocial: No Integumentary: No Recent Skin Changes Blood Disorders: No Adverse Reaction/Blood Tranf: No Family Medical History Reviewed Nursing Family Hx Dementia G8 SISTER Diabetes mellitus 19 FATHER No Pertinent Family Hx, Diabetes, Psychiatric Problems Physical Exam Vital Signs Vital Signs - First Documented 10/21/18 07:38 Temp 99.8 Pulse 89 Resp 16 B/P (MAP) 198/71 (113) Pulse Ox 100 Capillary Refill : Height/Weight/BMI Height: 5'4.00" Weight: 112lbs. 6.0oz. [id number]; 20.1 BMI Method:Stated General Appearance: WD/WN, no apparent distress Neck: full range of motion, supple Respiratory: lungs clear, normal breath sounds Cardiovascular: regular rate, rhythm, no murmur Gastrointestinal: normal bowel sounds, non tender, soft Extremities: non-tender, normal inspection Back: normal inspection, no CVA tenderness, no vertebral tenderness Neurologic/Psychiatric: alert, oriented x 3 Skin: normal color, warm/dry Focused Exam Lactate Level 10/21/18 12:48: Lactic Acid Level 2.62*H Lactic Acid Level Laboratory Tests Test 10/21/18 12:48 Lactic Acid Level 2.62 MMOL/L (0.50-2.00) *H Progress/Results/Core Measures Results/Orders Lab Results Laboratory Tests Test 10/21/18 07:28 10/21/18 12:48 Range/Units White Blood Count 12.9 H 4.3-11.0 10^3/uL Red Blood Count 3.96 L 4.35-5.85 10^6/uL Hemoglobin 11.8 11.5-16.0 G/DL Hematocrit 36 35-52 % Mean Corpuscular Volume 90 80-99 FL Mean Corpuscular Hemoglobin 30 25-34 PG Mean Corpuscular Hemoglobin Concent 33 32-36 G/DL Red Cell Distribution Width 15.1 H 10.0-14.5 % Platelet Count 226 130-400 10^3/uL Mean Platelet Volume 9.3 7.4-10.4 FL Neutrophils (%) (Auto) 81 H 42-75 % Lymphocytes (%) (Auto) 14 12-44 % Monocytes (%) (Auto) 5 0-12 % Eosinophils (%) (Auto) 0 0-10 % Basophils (%) (Auto) 0 0-10 % Neutrophils # (Auto) 10.5 H 1.8-7.8 X 10^3 Lymphocytes # (Auto) 1.8 1.0-4.0 X 10^3 Monocytes # (Auto) 0.6 0.0-1.0 X 10^3 Eosinophils # (Auto) 0.0 0.0-0.3 10^3/uL Basophils # (Auto) 0.0 0.0-0.1 10^3/uL Urine Color YELLOW Urine Clarity CLEAR Urine pH 8 5-9 Urine Specific [place] 1.015 L 1.016-1.022 Urine Protein 1+ H NEGATIVE Urine Glucose (UA) NEGATIVE NEGATIVE Urine Ketones NEGATIVE NEGATIVE Urine Nitrite NEGATIVE NEGATIVE Urine Bilirubin NEGATIVE NEGATIVE Urine Urobilinogen NORMAL NORMAL MG/DL Urine Leukocyte Esterase NEGATIVE NEGATIVE Urine RBC (Auto) NEGATIVE NEGATIVE Urine RBC 0-2 /HPF Urine WBC NONE /HPF Urine Crystals NONE /LPF Urine Bacteria NEGATIVE /HPF Urine Casts NONE /LPF Urine Mucus NEGATIVE /LPF Urine Culture Indicated NO Sodium Level 140 135-145 MMOL/L Potassium Level 3.2 L 3.6-5.0 MMOL/L Chloride Level 101 98-107 MMOL/L Carbon Dioxide Level 20 L 21-32 MMOL/L Anion Gap 19 H 5-14 MMOL/L Blood Urea Nitrogen 29 H 7-18 MG/DL Creatinine 1.04 0.60-1.30 MG/DL Estimat Glomerular Filtration Rate 51 BUN/Creatinine Ratio 28 Glucose Level 158 H 70-105 MG/DL Calcium Level 9.5 8.5-10.1 MG/DL Corrected Calcium 9.5 8.5-10.1 MG/DL Total Bilirubin 0.8 0.1-1.0 MG/DL Aspartate Amino Transf (AST/SGOT) 25 5-34 U/L Alanine Aminotransferase (ALT/SGPT) 24 0-55 U/L Alkaline Phosphatase 107 40-136 U/L Troponin I < 0.30 <0.30 NG/ML C-Reactive Protein High Sensitivity 0.35 0.00-0.50 MG/DL Total Protein 7.3 6.4-8.2 GM/DL Albumin 4.0 3.2-4.5 GM/DL Lactic Acid Level 2.62 *H 0.50-2.00 MMOL/L Micro Results Microbiology 10/21/18 Influenza Types A,B Antigen (SOSA) - Final, Complete My Orders Orders - KRISS SAGASTUME MD Cbc With Automated Diff (10/21/18 07:20) Comprehensive Metabolic Panel (10/21/18 07:20) Hs C Reactive Protein (10/21/18 07:20) Ua Culture If Indicated (10/21/18 07:20) Ondansetron Injection (Zofran Injectio (10/21/18 07:30) Ns Iv 1000 Ml (Sodium Chloride 0.9%) (10/21/18 07:20) Saline Lock/Iv-Start (10/21/18 07:20) Chest 1 View, Ap/Pa Only (10/21/18 07:20) Fecal Occult Bedside (10/21/18 07:20) Ekg Tracing (10/21/18 07:20) Troponin I (10/21/18 07:20) Ct Head Wo (10/21/18 09:22) Dysphagia Screening Tool (10/21/18 09:54) Lactic Acid Analyzer (10/21/18 12:42) Blood Culture (10/21/18 12:42) Influenza A And B Antigens (10/21/18 12:42) Acetaminophen Tablet (Tylenol Tablet) (10/21/18 13:45) Zosyn 4.5gm Iv X 1 (10/21/18 14:15) Medications Given in ED Current Medications Medications Dose Ordered Sig/Kayla Route Start Time Stop Time Status Last Admin Dose Admin Acetaminophen 1,000 mg ONCE ONCE PO 10/21/18 13:45 10/21/18 13:46 DC 10/21/18 13:49 1,000 MG Ondansetron HCl 4 mg ONCE ONCE IVP 10/21/18 07:30 10/21/18 07:33 DC 10/21/18 07:38 4 MG Vital Signs/I&O 10/21/18 07:38 Temp 99.8 Pulse 89 Resp 16 B/P (MAP) 198/71 (113) Pulse Ox 100 Progress Progress Note : Progress Note Seen and evaluated. IV by EMS. Repeat Zofran 4 mg IV, normal saline 1 L bolus , labs, UA and EKG ordered. Hemoccult stool ordered. This was faintly positive. Monitor patient. 0930: On nursing talking with patient's daughter. Daughter reports that the patient had increasing weakness overnight and we are not sure what that's about. We will get CT of the head due to patient's mental status declined. 0945: Son arrives and states that patient was doing okay yesterday. He noted a 3 a.m. that the patient wasn't acting right but she went back to sleep. At around 630 this morning, patient was definitely still not acting right son stated that she did not look right. Ultimately EMS was called and patient was transported to the emergency department. Due to additional story, we will get NIH and dysphagia screen. Patient is well outside of window for TPA as her last known well time was last night prior to 10 p.m. She is still having diarrhea currently. Labs, x-ray and EKG otherwise had no significant findings. She is not better with fluids. Monitor patient. 1355: Patient does have elevated lactic acid. Normal saline 1 L bolus is been initiated. I have spoke at length with the patient's family including her daughter who is in [place]. We have tried to come up with options for care for her. Lactic acid is noted to be elevated now and this changes or concern. Due to the altered mental status overnight that may have been from the Seroquel, we' re concerned about aspiration as a possible cause of the pneumonia as well as other intra-abdominal pathology. We will initiate her on Zosyn 4.5 g IV and admit her for further care including fluids and antibiotics. All this was discussed with the patient and family who agree. Social work has been consulted on her as she will likely need placement afterwards due to her decline in function and persistent and increasing weakness. Initial ECG Impression Date: Oct 21, 2018 Initial ECG Impression Time: 07:55 Initial ECG Rate: 83 Initial ECG Rhythm: Normal Sinus Comment Sinus rhythm with artifact. PVC noted. Normal axis. No evidence of ST elevation OK. T-wave abnormality in the lateral leads. Overall unchanged from 28 Feb 2015. Interpreted by me. Diagnostic Imaging Diagonstic Imaging: Xray Plain Films/CT/US/NM/MRI: chest Comments NAME: SUDARSHAN BARBOSA [facility] REC#: [id number] PT STATUS: REG ER : 1935 PHYSICIAN: KRISS SAGASTUME MD ADMIT DATE: 10/21/18/ER Draft Date of Exam:10/21/18 CHEST 1 VIEW, AP/PA ONLY INDICATION: Not provided COMPARISON: 10/03/2018 FINDINGS: Single frontal view of the chest demonstrates normal heart size and pulmonary vascularity. The lungs are well aerated and clear. No large pleural effusion or pneumothorax is seen. The visualized osseous structures show no acute abnormalities. Note is made of aortic atherosclerosis. IMPRESSION: 1. No acute cardiopulmonary process. Dictated on workstation # [id number] Dict: 10/21/18 0758 Trans: 10/21/18 0802 [facility] [id number] Interpreted by: HERLINDA LOPEZ MD Electronically signed by: Diagonstic Imaging: CT Plain Films/CT/US/NM/MRI: head Comments [facility]. [place], [place] NAME: SUDARSHAN BARBOSA [facility] REC#: [id number] PT STATUS: REG ER : 1935 PHYSICIAN: KRISS SAGASTUME MD ADMIT DATE: 10/21/18/ER Draft Date of Exam:10/21/18 CT HEAD WO PROCEDURE: CT head without contrast. TECHNIQUE: Multiple contiguous axial images were obtained through the brain without the use of intravenous contrast. DATE: October 21, 2018. COMPARISON: CT head and cervical spine October 02, 2018. MRI brain March 01, 2015. INDICATION: 82-year-old female, confusion and altered mental status. FINDINGS: There are motion limitations of the exam. The visualized portions of the paranasal sinuses, mastoid air cells and middle ears appear well aerated. There are areas of low attenuation in the periventricular and subcortical white matter which are nonspecific but most likely reflect mild/moderate changes of chronic small vessel ischemic disease. The ventricles and cerebral spinal fluid spaces are of normal size and configuration for the patient's age. There is no mass effect or midline shift. There is no acute intracranial hemorrhage. There is no abnormal extra-axial fluid collection. IMPRESSION: 1. No identified acute intracranial abnormality. 2. Mild to moderate changes of chronic small vessel ischemic disease. Dictated on workstation # [id number] Dict: 10/21/18 0946 Trans: 10/21/18 0951 [facility] [id number] Interpreted by: YAYA OLMSTEAD MD Electronically signed by: Departure Communication (Admissions) Time/Spoke to Admitting Phy: 13:55 Impression Primary Impression: Fever, unknown origin Additional Impressions: Dehydration Lactic acidosis Disposition: ADMITTED INPATIENT Condition: Stable Admissions Decision to Admit Reason: Admit from ER (General) Decision to Admit/Date: Oct 21, 2018 Time/Decision to Admit Time: 13:55 Departure-Patient Inst. Referrals: HERNESTO CATALAN MD (PCP/Family) Primary Care Physician KRISS SAGASTUME MD Oct 21, 2018 07:57
--- NOTE | 2018-10-21 08:03 | Diagnostic Imaging Report ---
INDICATION: Not provided COMPARISON: 10/03/2018 FINDINGS: Single frontal view of the chest demonstrates normal heart size and pulmonary vascularity. The lungs are well aerated and clear. No large pleural effusion or pneumothorax is seen. The visualized osseous structures show no acute abnormalities. Note is made of aortic atherosclerosis. IMPRESSION: 1. No acute cardiopulmonary process. Dictated by: Dictated on workstation # [id number]
--- NOTE | 2018-10-21 09:51 | Diagnostic Imaging Report ---
PROCEDURE: CT head without contrast. TECHNIQUE: Multiple contiguous axial images were obtained through the brain without the use of intravenous contrast. DATE: October 21, 2018. COMPARISON: CT head and cervical spine October 02, 2018. MRI brain March 01, 2015. INDICATION: 82-year-old female, confusion and altered mental status. FINDINGS: There are motion limitations of the exam. The visualized portions of the paranasal sinuses, mastoid air cells and middle ears appear well aerated. There are areas of low attenuation in the periventricular and subcortical white matter which are nonspecific but most likely reflect mild/moderate changes of chronic small vessel ischemic disease. The ventricles and cerebral spinal fluid spaces are of normal size and configuration for the patient's age. There is no mass effect or midline shift. There is no acute intracranial hemorrhage. There is no abnormal extra-axial fluid collection. IMPRESSION: 1. No identified acute intracranial abnormality. 2. Mild to moderate changes of chronic small vessel ischemic disease. Dictated by: Dictated on workstation # [id number]
--- NOTE | 2018-10-21 13:40 | NUR ---
Lennie from social work here talking to pt and family at this time.
[2018-10-21] MEDS ORDERED: ACETAMINOPHEN 500 MG TAB (TYLENOL) PO ONE (13:45)
[2018-10-21] MEDS ORDERED: PIPERACILLIN SODIUM/TAZOBACTAM 4.5 GM in NS (IVPB) 100 ML IV ONE (14:15)
[2018-10-21 15:30] VITALS: BP 135/63
--- NOTE | 2018-10-21 15:30 | NUR ---
SUDARSHAN BARBOSA admitted to room 409-1, with an admitting diagnosis of INFECTION AND FEVER OF UNKNOWN ORIGIN, LACTIC ACIDOSIS, on 10/21/18 from ED via , accompanied by STAFF. SUDARSHAN BARBOSA introduced to surroundings, call light, bed controls, phone, TV, temperature control, lights, meal times, smoking policy, visitor policy, side rail policy, bathrooms and showers. Patient Rights given to patient in the handbook. SUDARSHAN BARBOSA verbalizes understanding that [facility] is not responsible for the loss or damage to any personal effects or valuables that are kept in the patients posession during their hospitalization. SUDARSHAN BARBOSA verbalizes understanding of Interdisciplinary Patient Education. Patient and/or family were informed about the Rapid Response Team and its purpose.
[2018-10-21] MEDS ORDERED: ACET-2840 PO (15:52)
--- NOTE | 2018-10-21 16:27 | NUR ---
CM/SS. Responded to consult in ER and then patient was admitted. Familiar with patient and family from previous admissions. Patient was just here approx 2 weeks ago for fall with fractured ribs. She was OBS stay and did not meet criteria for IP. She has Medicare, a supplement, and Medicaid with a spend down of approx $5800 which prevented her from entering a community alf at that time. Spoke at length with patient's daughter/POA Emani Ramirez in [place]. Will monitor patient progress and see what is needed post acute care. Emani is aware to explore options including in-home assistance, assisted living, or alf for jail permanent placement. Patient resides at home with her son Asif Castillo and has for many years. He is deaf but functions within normal limits otherwise. Followup Sunday.
[2018-10-21] MEDS ORDERED: ACETAMINOPHEN 500 MG TAB (TYLENOL) PO PRN (16:30)
[2018-10-21] MEDS ORDERED: ONDANSETRON 4 MG/2 ML (SDV) Z0FRAN IVP PRN (16:30)
[2018-10-21] MEDS: NS IV 1000 ML 1,000 ML IV SCH (16:31)
[2018-10-21] MEDS ORDERED: FLU QUADRIvalent (5+ YOA) 2018-2019 (AFLURIA) 0.5 ML IM ONE (17:15)
--- NOTE | 2018-10-21 17:20 | NUR ---
Discussed pt case with daughter and DPTALHA Joaquin. She, and the pt, are unsure if the pt has had the flu shot this year, staff have been asked to hold until we know for sure. Emani also requested that we not tell the pt that she has dementia d/t hx of severe depression, stating "if she finds out she will give up". Will pass request along to staff and Dr. Parnell. Pt has been A&Ox4 since admission, forgetful at times. Uses call light appropriately. Will continue to monitor pt condition.
[2018-10-21 20:00] VITALS: BP 131/61
[2018-10-21] MEDS: PIPERACILLIN/TAZO 4.5 GM/NS 100 ML IV SCH ×2 (20:45)
[2018-10-22] VITALS: BP 118/64
[2018-10-22] MEDS: NS IV 1000 ML 1,000 ML IV SCH ×2 (01:21→09:36)
[2018-10-22] MEDS: PIPERACILLIN/TAZO 4.5 GM/NS 100 ML IV SCH ×6 (03:48→20:37)
[2018-10-22 04:00] VITALS: BP 139/69
[2018-10-22 05:24] LABS: BASOPHILS % (AUTO) 0 % (0-10); EOSINOPHILS % (AUTO) 1 % (0-10); HEMATOCRIT 29 % (35-52); HEMOGLOBIN 9.4 G/DL (11.5-16.0); LYMPHOCYTES % (AUTO) 28 % (12-44); MEAN CORPUSCULAR HEMOGLOBIN 30 PG (25-34); MEAN CORPUSCULAR HGB CONC 32 G/DL (32-36); MEAN CORPUSCULAR VOLUME 92 FL (80-99); MEAN PLATELET VOLUME 9.2 FL (7.4-10.4); MONOCYTES # (AUTO) 0.7 X 10^3 (0.0-1.0); MONOCYTES % (AUTO) 9 % (0-12); NEUTROPHILS # (AUTO) 4.5 X 10^3 (1.8-7.8); NEUTROPHILS % (AUTO) 62 % (42-75); PLATELET COUNT 134 10^3/uL (130-400); RED BLOOD COUNT 3.18 10^6/uL (4.35-5.85); RED CELL DISTRIBUTION WIDTH 15.3 % (10.0-14.5); WHITE BLOOD COUNT 7.2 10^3/uL (4.3-11.0)
[2018-10-22 05:49] LABS: ALBUMIN 2.9 GM/DL (3.2-4.5); BILIRUBIN,TOTAL 0.5 MG/DL (0.1-1.0); CALCIUM 7.8 MG/DL (8.5-10.1); CREATININE SERUM 1.24 MG/DL (0.60-1.30); POTASSIUM 3.4 MMOL/L (3.6-5.0); TOTAL PROTEIN 5.3 GM/DL (6.4-8.2)
[2018-10-22 08:45] VITALS: BP 153/70
[2018-10-22 11:35] VITALS: BP 157/70
--- NOTE | 2018-10-22 12:17 | History & Physical-Hospitalist ---
History of Present Illness HPI/Chief Complaint CC: Weakness with fever and elevated lactic acid HPI: This is an 83-year-old white female clinic patient of [facility] resides at home with her son who presented to the ER with altered mental status and fatigue and significant drowsiness likely due to just starting Seroquel the night before.. Patient was found to have elevated lactic acid with fever and leukocytosis she was placed on empiric antibiotics IV fluids and monitor closely for supportive care. Patient is very frail and likely needs intermediate placement. Patient at this current time feels much better she is eating and drinking and has no pain reported. I have restarted all of her home medication and will be replacing potassium with IV fluids. Checked meds and labs. Source: patient, RN/MD Exam Limitations: no limitations Date Seen 10/22/18 Time Seen by a Provider: 10:00 Attending Physician Fariha Parnell DO PCP Hugo Marie MD Referring Physician Date of Admission Oct 21, 2018 at 14:08 Home Medications & Allergies Home Medications Reviewed patient Home Medication Reconciliation performed by pharmacy medication reconciliations durability technician and/or nursing. Patients Allergies have been reviewed. Allergies Allergies Coded Allergies quetiapine (Verified Adverse Reaction, Unknown, 10/21/18) confusion Past Erdadsc-Awjacy-Uzvxym Hx Past Med/Social Hx: Reviewed Nursing Past Med/Soc Hx, Reviewed and Corrections made Patient Social History Marrital Status: single Employed/Student: retired Alcohol Use: Denies Use Number of Drinks Today: AA Recreational Drug Use: No Smoking Status: Never a Smoker Physical Abuse Screen: No Sexual Abuse: No Recent Foreign Travel: No Contact w/other who traveled: No Recent Hopitalizations: No Recent Infectious Disease Expo: No Immunizations Up To Date Tetanus Booster (TDap): Unknown Pediatric: No Date of Pneumonia Vaccine: Jul 22, 2017 Date of Influenza Vaccine: Jul 22, 2017 Seasonal Allergies Seasonal Allergies: No Past Medical History Currently Using CPAP: No Currently Using BIPAP: No Cardiac: Hypertension Neurological: Dementia Reproductive: No Sexually Transmitted Disease: No HIV/AIDS: No Female Reproductive Disorders: Denies Genitourinary: UTI-Chronic Musculoskeletal: Fractures, Gout Endocrine: Hyperthyroidism HEENT: Cataract Loss of Vision: Denies Hearing Impairment: Hard of Hearing Skin/Integumentary: Recent Skin Changes History of Blood Disorders: No Adverse Reaction to Blood [place]it[place]: No Family History Reviewed Nursing Family Hx Dementia G8 SISTER Diabetes mellitus 19 FATHER No Pertinent Family Hx, Diabetes, Psychiatric Problems Review of Systems Constitutional: see HPI, malaise, weakness, weight loss EENTM: no symptoms reported Respiratory: no symptoms reported Cardiovascular: no symptoms reported Gastrointestinal: no symptoms reported Genitourinary: no symptoms reported Musculoskeletal: no symptoms reported Skin: no symptoms reported Psychiatric/Neurological: No Symptoms Reported Physical Exam Physical Exam Vital Signs Vital Signs - First Documented 10/21/18 07:38 Temp 99.8 Pulse 89 Resp 16 B/P (MAP) 198/71 (113) Pulse Ox 100 Capillary Refill : Less Than 3 Seconds Height, Weight, BMI Height: 5'4.00" Weight: 113lbs. 8.0oz. 51.930386ae; 19.5 BMI Method:Stated General Appearance: No Apparent Distress, WD/WN, Chronically ill, Thin Eyes: Bilateral Eye Normal Inspection, Bilateral Eye PERRL HEENT: PERRL/EOMI, Normal ENT Inspection, Pharynx Normal Neck: Full Range of Motion, Normal Inspection, Non Tender, Supple, Carotid Bruit Respiratory: Chest Non Tender, Lungs Clear, Normal Breath Sounds, No Accessory Muscle Use, No Respiratory Distress Cardiovascular: Regular Rate, Rhythm, No Edema, No Gallop, No JVD, No Murmur, Normal Peripheral Pulses Gastrointestinal: Normal Bowel Sounds, No Organomegaly, No Pulsatile Mass, Non Tender, Soft Back: Normal Inspection, No CVA Tenderness, No Vertebral Tenderness Extremity: Normal Capillary Refill, Normal Inspection, Normal Range of Motion, Non Tender, No Calf Tenderness, No Pedal Edema Neurologic/Psychiatric: Alert, Oriented x3 (Subtle poor recall), No Motor/ Sensory Deficits, Normal Mood/Affect Skin: Normal Color, Warm/Dry Lymphatic: No Adenopathy Results Results/Procedures Labs Laboratory Tests 10/21/18 07:28 10/22/18 04:55 Patient resulted labs reviewed. Assessment/Plan Admission Diagnosis Assessment: Altered mental status likely due to Seroquel Fever with elevated lactic acid and leukocytosis Dementia Weight loss Frail status Advanced age Depression Plan: Restart all home meds except for cervical Maintain IV fluids Replace potassium and IV fluids Monitor closely May need intermediate placement Admission Status: Inpatient Order (span 2 midnights) Reason for Inpatient Admission: Patient will require IVF and close monitoring for source of infection and will require 3 days Diagnosis/Problems Diagnosis/Problems (1) Fever, unknown origin Status: Acute (2) Lactic acidosis Status: Acute (3) Dehydration Status: Acute (4) Advanced age Status: Acute (5) Debility Status: Acute (6) Hypertension Status: Chronic (7) Hyperlipidemia Status: Chronic (8) Anemia Status: Chronic Qualifiers: Anemia type: unspecified type Qualified Codes: D64.9 - Anemia, unspecified (9) Depression Status: Chronic Qualifiers: Depression Type: unspecified Qualified Codes: F32.9 - Major depressive disorder, single episode, unspecified (10) Hypokalemia Status: Acute (11) Leukocytosis Status: Acute Qualifiers: Leukocytosis type: leukemoid reaction Qualified Codes: D72.823 - Leukemoid reaction (12) Altered mental status Status: Acute Qualifiers: Altered mental status type: stupor Qualified Codes: R40.1 - Stupor (13) Side effect of medication Status: Acute Clinical Quality Measures DVT/VTE Risk/Contraindication: Risk Factor Score Per Nursin RFS Level Per Nursing on Admit: 3=High FARIHA PARNELL DO Oct 22, 2018 12:17
[2018-10-22] MEDS ORDERED: CALCIUM CARBONATE 500 MG (TUMS) TAB.CHEW PO PRN (13:45)
[2018-10-22] MEDS ORDERED: HYDROcodone/APAP 5 MG/325 MG (LORTAB) TAB PO PRN (13:45)
[2018-10-22] MEDS ORDERED: diphenhydrAMINE 25 MG TAB (BENADRYL) PO PRN (13:45)
[2018-10-22] MEDS ORDERED: DOCUSATE SODIUM 100 MG (COLACE) CAP PO PRN (13:45)
[2018-10-22] MEDS ORDERED: ALPRAZolam 0.25 MG (XANAX) TAB PO PRN (13:45)
[2018-10-22] MEDS ORDERED: FLU QUADRIvalent (5+ YOA) 2018-2019 (AFLURIA) 0.5 ML IM ONE (14:23)
[2018-10-22] MEDS: NS W/KCL 20 MEQ/L 1,000 ML IV SCH (14:28)
[2018-10-22 15:49] VITALS: BP 152/71
[2018-10-22 20:00] VITALS: BP 156/72
[2018-10-22] MEDS ORDERED: QUETIAPINE FUMARATE 50 MG PO SCH (21:00)
[2018-10-23] VITALS (7 sets, daily range): BP systolic 130–167; BP diastolic 60–76
[2018-10-23] MEDS: PIPERACILLIN/TAZO 4.5 GM/NS 100 ML IV SCH ×6 (03:56→20:33)
[2018-10-23] MEDS: NS W/KCL 20 MEQ/L 1,000 ML IV SCH (03:59)
[2018-10-23 05:53] LABS: BASOPHILS % (AUTO) 0 % (0-10); EOSINOPHILS # (AUTO) 0.1 10^3/uL (0.0-0.3); EOSINOPHILS % (AUTO) 2 % (0-10); HEMATOCRIT 29 % (35-52); HEMOGLOBIN 9.1 G/DL (11.5-16.0); LYMPHOCYTES # (AUTO) 2.2 X 10^3 (1.0-4.0); LYMPHOCYTES % (AUTO) 36 % (12-44); MEAN CORPUSCULAR HEMOGLOBIN 29 PG (25-34); MEAN CORPUSCULAR HGB CONC 32 G/DL (32-36); MEAN CORPUSCULAR VOLUME 93 FL (80-99); MONOCYTES # (AUTO) 0.7 X 10^3 (0.0-1.0); MONOCYTES % (AUTO) 11 % (0-12); NEUTROPHILS # (AUTO) 3.2 X 10^3 (1.8-7.8); NEUTROPHILS % (AUTO) 51 % (42-75); PLATELET COUNT 159 10^3/uL (130-400); RED BLOOD COUNT 3.09 10^6/uL (4.35-5.85); RED CELL DISTRIBUTION WIDTH 15.9 % (10.0-14.5); WHITE BLOOD COUNT 6.2 10^3/uL (4.3-11.0)
[2018-10-23 06:14] LABS: ALBUMIN 2.9 GM/DL (3.2-4.5); BILIRUBIN,TOTAL 0.4 MG/DL (0.1-1.0); CALCIUM 7.9 MG/DL (8.5-10.1); CREATININE SERUM 1.03 MG/DL (0.60-1.30); POTASSIUM 3.7 MMOL/L (3.6-5.0); TOTAL PROTEIN 5.1 GM/DL (6.4-8.2)
--- NOTE | 2018-10-23 09:03 | Progress Note-Hospitalist ---
Subjective HPI/CC On Admission Date Seen by Provider: Oct 23, 2018 Time Seen by Provider: 08:30 CC: Weakness with fever and elevated lactic acid HPI: This is an 83-year-old white female clinic patient [facility] resides at home with her son who presented to the ER with altered mental status and fatigue and significant drowsiness likely due to just starting Seroquel the night before.. Patient was found to have elevated lactic acid with fever and leukocytosis she was placed on empiric antibiotics IV fluids and monitor closely for supportive care. Patient is very frail and likely needs chcf placement. Patient at this current time feels much better she is eating and drinking and has no pain reported. I have restarted all of her home medication and will be replacing potassium with IV fluids. Checked meds and labs. Subjective/Events-last exam Patient doing much better Will order physical therapy and occupational therapy May need chcf or inpatient rehabilitation Low-grade fever noted Maintained on Zosyn We'll check chest x-ray since during altered mental status episode that could have had a small aspiration pneumonia the lungs are clear today Bowels are moving No other concerns Review of Systems General: Fatigue Focused Exam Lactate Level 10/21/18 12:48: Lactic Acid Level 2.62*H 10/21/18 14:55: Lactic Acid Level 1.87 Objective Exam Vital Signs Vital Signs Date Time Temp Pulse Resp B/P (MAP) Pulse Ox O2 Delivery O2 Flow Rate FiO2 10/23/18 08:33 99.5 71 20 141/66 (91) 97 Room Air Capillary Refill : Less Than 3 Seconds General Appearance: No Apparent Distress, WD/WN, Chronically ill, Thin Respiratory: Chest Non Tender, Lungs Clear, Normal Breath Sounds, No Accessory Muscle Use, No Respiratory Distress Cardiovascular: Regular Rate, Rhythm, No Edema, No Gallop, No JVD, No Murmur, Normal Peripheral Pulses Neurologic/Psychiatric: Alert, Oriented x3, No Motor/Sensory Deficits, Normal Mood/Affect Skin: Normal Color, Warm/Dry Results/Procedures Lab Laboratory Tests 10/23/18 05:19 Patient resulted labs reviewed. Assessment/Plan Assessment and Plan Assess & Plan/Chief Complaint Assessment: Altered mental status likely due to Seroquel Fever with elevated lactic acid and leukocytosis rechecking CXR today Dementia Weight loss Frail status Advanced age Depression Plan: NHP tomorrow Likely not IRF candidate Check CXR Frail status Diagnosis/Problems Diagnosis/Problems (1) Fever, unknown origin Status: Acute (2) Lactic acidosis Status: Resolved Resolution Date/Time: 10/23/18 @ 11:13 (3) Dehydration Status: Resolved Resolution Date/Time: 10/23/18 @ 11:13 (4) Advanced age Status: Acute (5) Debility Status: Acute (6) Hypertension Status: Chronic Qualifiers: Hypertension type: essential hypertension Qualified Codes: I10 - Essential (primary) hypertension (7) Hyperlipidemia Status: Chronic (8) Anemia Status: Chronic Qualifiers: Anemia type: unspecified type Qualified Codes: D64.9 - Anemia, unspecified (9) Depression Status: Chronic Qualifiers: Depression Type: unspecified Qualified Codes: F32.9 - Major depressive disorder, single episode, unspecified (10) Hypokalemia Status: Acute (11) Leukocytosis Status: Acute Qualifiers: Leukocytosis type: leukemoid reaction Qualified Codes: D72.823 - Leukemoid reaction (12) Altered mental status Status: Acute Qualifiers: Altered mental status type: stupor Qualified Codes: R40.1 - Stupor (13) Side effect of medication Status: Acute Clinical Quality Measures DVT/VTE Risk/Contraindication: Risk Factor Score Per Nursin RFS Level Per Nursing on Admit: 3=High SATINDER MARRUFO DO Oct 23, 2018 09:03
--- NOTE | 2018-10-23 09:33 | Diagnostic Imaging Report ---
Clinical indication: Patient with fever. Exam: Chest x-ray PA and lateral views. Comparisons: Chest x-ray dated 10/21/2018. Findings: Lungs/pleura: There is interval increased opacity in the right cardiophrenic angle region which obscures the right hemidiaphragm, concerning for atelectasis. There is no other concern for interval lung infiltrate. There is no pneumothorax. There is no pleural effusion. Mediastinum: Unremarkable. Pulmonary vasculature: Unremarkable. Heart: Unremarkable. Bones/extrathoracic soft tissue: There are small degenerative spurs involving the thoracic spine. Impression: There is interval right basilar consolidation suspected to represent atelectasis, but superimposed infiltrate cannot be completely excluded. Follow up chest x-ray in 2 - 4 weeks is suggested to evaluate for interval resolution of this finding. Dictated by: Dictated on workstation # [id number]
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
[2018-10-23] MEDS: ASPIRIN 81 MG CHEW (CHILDREN'S ASA) PO SCH (10:57)
--- NOTE | 2018-10-23 11:36 | Physical Therapy Evaluation ---
PT Evaluation-General Medical Diagnosis Admission Date Oct 21, 2018 at 14:08 Medical Diagnosis: weakness Onset Date: Oct 21, 2018 Therapy Diagnosis Therapy Diagnosis: impaired mobility, strength, endurance, balance Height/Weight Height (Feet): 5 Height (Inches): 4.00 Weight (Pounds): 113 Weight (Ounces): 8.0 Precautions Precautions/Isolations: Fall Prevention, Standard Precautions Referral Physician: Fariha Parnell DO Reason for Referral: Evaluation/Treatment Medical History Pertinent Medical History: Arthritis, Dementia, HTN Additional Medical History Past Medical History Currently Using CPAP: No Currently Using BIPAP: No Cardiac: Hypertension Neurological: Dementia Reproductive: No Sexually Transmitted Disease: No HIV/AIDS: No Female Reproductive Disorders: Denies Genitourinary: UTI-Chronic Musculoskeletal: Fractures, Gout Endocrine: Hyperthyroidism HEENT: Cataract Loss of Vision: Denies Hearing Impairment: Hard of Hearing Skin/Integumentary: Recent Skin Changes History of Blood Disorders: No Adverse Reaction to Blood Avitia: No Reviewed History: Yes Social History Home: Single Level Entry Into Home: Stairs Without Railing PT Steps Into Home: 1 Patient states her son lives with her. Prior/Core FIM Prior Level of Function Therapy Code Descriptions/Definitions Functional [place] Measure: 0=Not Assessed/NA 4=Minimal Assistance 1=Total Assistance 5=Supervision or Setup 2=Maximal Assistance 6=Modified [place] 3=Moderate Assistance 7=Complete [place] Therapy Quality Codes: 6 Independent with activity with or without an assistive device 5 Patient requires set up or clean up by helper. Patient completes activity by themselves 4 Supervision or touching assist (CGA). Mobile provide cues , steadying assist 3 The helper provides less than half the effort to complete the activity 2 The helper provides more than half the effort to complete the activity 1 Dependent. The helper does all the effort to complete an activity 7 Patient refused to complete or attempt activity 9 The patient did not perform the activity before the current illness or injury 88 Not attempted due to Medical conditions or safety concerns Functional Abilities and Goals: Independent: Patient completed the activities by him/herself, with or without an assistive device, with no assistance from a helper. Needed Some Help: Patient needed partial assistance from another person to complete activities. Dependent: A helper completed the activities for the patient. Unknown: Not Applicable: Bed Mobility: 6 Transfers (B,C,W/C) (FIM): 6 Gait: 6 Stairs: 6 Patient seems to be a poor historian but states that she was using a rolling walker previously. PT Evaluation-Current Subjective Patient in recliner pre tx, agrees to PT, has pain in right side (ribs) 03/31. Pt/Family Goals to be independent at home Objective Patient Orientation: Person, Confused Attachments: IV ROM/Strength ROM Lower Extremities WNL Strength Lower Extremities 4/5 gross bilateral lower extremities Sensory Vision: Functional Hearing: Functional Sensation Right Lower Extremit: Intact Sensation Left Lower Extremity: Intact Transfers Therapy Code Descriptions/Definitions Functional [place] Measure: 0=Not Assessed/NA 4=Minimal Assistance 1=Total Assistance 5=Supervision or Setup 2=Maximal Assistance 6=Modified [place] 3=Moderate Assistance 7=Complete [place] Transfers (B, C, W/C) (FIM): 4 Sit to/from Stand: 4 bed t/f WC(FIM only if WC use): 4 CGA for sit to stand, may need min assist with transfers to help guide the walker, cues for safety Gait Mode of Locomotion: Walk Anticipated Mode of Locomotion: Walk Gait (FIM): 4 Distance: 200' Gait Level of Assist: 4 Gait Persons Needed: 1 Gait Assistive Device: FWW Comments/Gait Description Patient ambulates with walker too far forward, needs not only cues for this but min assist to help steady walker, uncoordinated steps and impaired balance, pigeon toed Balance Sitting Static: Normal Sitting Dynamic: Normal Standing Static: Poor Standing Dynamic: Poor Treatment seated exercises x15 (AP, LAQ) Assessment/Needs Patient has impaired mobility, strength, endurance, balance. She seems to be confused and is a fall risk. Patient in recliner post tx, has nurse call, phone , tray, chair alarm on. Rehab Potential: Fair PT Short Term Goals Short Term Goals Time Frame: Oct 30, 2018 Transfers (B,C,W/C) (FIM): 5 Gait (FIM): 5 Gait Distance Comment: 250' Gait Level of Assist: 5 Gait Assistive Device: FWW PT Plan Problem List Problem List: Activity Tolerance, Functional Strength, Safety, Balance, Gait, Transfer, Bed Mobility Treatment/Plan Treatment Plan: Continue Plan of Care Treatment Plan: Bed Mobility, Education, Functional Activity Romario, Functional Strength, Gait, Safety, Therapeutic Exercise, Transfers Treatment Duration: Oct 30, 2018 Frequency: 6 times per week Estimated Hrs Per Day: .25 hour per day (15-30') Patient and/or Family Agrees t: Yes Safety Risks/Education Patient Education: Gait Training, Transfer Techniques, Correct Positioning, Safety Issues Teaching Recipient: Patient Teaching Methods: Demonstration, Discussion Response to Teaching: Reinforcement Needed Discharge Recommendations Plan Patient will perform bed mobility and transfer training, balance and endurance training, functional strengthening, stair training, gait training, and education , to improve functional mobility and independence at home. Therapy D/C Recommendations: Home w/ Family Support, [facility]pc (TCU/NH) Time/GCodes Time In: 1110 Time Out: 1124 Total Billed Treatment Time: 14 Total Billed Treatment 1 visit EVM 14' OLIVIA MATHIS PT Oct 23, 2018 11:36
--- NOTE | 2018-10-23 13:42 | NUR ---
Pt is Baptism. Label Operator provided prayer and Communion.
--- NOTE | 2018-10-23 14:02 | Occupational Therapy Eval ---
OT Evaluation-General/PLF Medical Diagnosis Admission Date Oct 21, 2018 at 14:08 Medical Diagnosis: weakness Onset Date: Oct 21, 2018 Therapy Diagnosis Therapy Diagnosis: decr self care, weakness, decr funct mob, decr act alice Height/Weight Height (Feet): 5 Height (Inches): 4.00 Weight (Pounds): 113 Weight (Ounces): 8.0 Precautions Precautions/Isolations: Fall Prevention, Standard Precautions Safety Interventions: Bed Exit Alarm, Reorient-Attempt Referral Physician: Fariha Parnell DO Referral Reason: Evaluation/Treatment Medical History Pertinent Medical History: Arthritis, Dementia, HTN Additional Medical History Hospitalized 10-02-18 with multiple rib fx. Chronic UTI. Gout. Hyperthyroidism. Hard of hearing. Recent skin changes Current History Admitted with nausea/vomiting/diarrhea. AMS, fatigue. Dehydration. Depression. Reviewed History: Yes Social History Home: Single Level Current Living Status: Children Entry Into Home: Stairs Without Railing Steps Into Home: 1 Lives with 62 year old son who works during the day ADL-Prior Level of Function Therapy Code Descriptions/Definitions Functional [place] Measure: 0=Not Assessed/NA 4=Minimal Assistance 1=Total Assistance 5=Supervision or Setup 2=Maximal Assistance 6=Modified [place] 3=Moderate Assistance 7=Complete [place] Therapy Quality Codes: 6 Independent with activity with or without an assistive device 5 Patient requires set up or clean up by helper. Patient completes activity by themselves 4 Supervision or touching assist (CGA). Hardesty provide cues , steadying assist 3 The helper provides less than half the effort to complete the activity 2 The helper provides more than half the effort to complete the activity 1 Dependent. The helper does all the effort to complete an activity 7 Patient refused to complete or attempt activity 9 The patient did not perform the activity before the current illness or injury 88 Not attempted due to Medical conditions or safety concerns Functional Abilities and Goals: Independent: Patient completed the activities by him/herself, with or without an assistive device, with no assistance from a helper. Needed Some Help: Patient needed partial assistance from another person to complete activities. Dependent: A helper completed the activities for the patient. Unknown: Not Applicable: ADL PLOF Comments Pt reported that she was able to manage all of her basic self care needs except that her son helped her with bathing. She hasn't driven for at least 10 years. 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 When she was discharged from hospital in September, she walked with SBA, FWW Self Care: Needed Some Help OT Current Status Subjective Pt seen in room, up in recliner, eating. Pain reported 0/10 Appearance Alert, cooperative. Reported date as 10-25-18. Believed that she was here because she fell and broke 5 ribs. Current Hearing Aids: No Hand Dominance: Right Upper Extremity ROM Grossly WFL bilat. Arthritic changes in hands Upper Extremity Strength Grossly 4/5 bilat ADL-Treatment ADL-Current Pt walked 200' with min assist, FWW with PT earlier. Nursing reported that she is able to do toilet transfer with SBA "She pops right up" and manages clothing and hygiene. Pt was feeding herself without help. Chair alarm for safety Therapy Code Descriptions/Definitions Functional [place] Measure: 0=Not Assessed/NA 4=Minimal Assistance 1=Total Assistance 5=Supervision or Setup 2=Maximal Assistance 6=Modified [place] 3=Moderate Assistance 7=Complete [place] Therapy Quality Codes: 6 Independent with activity with or without an assistive device 5 Patient requires set up or clean up by helper. Patient completes activity by themselves 4 Supervision or touching assist (CGA). Hardesty provide cues , steadying assist 3 The helper provides less than half the effort to complete the activity 2 The helper provides more than half the effort to complete the activity 1 Dependent. The helper does all the effort to complete an activity 7 Patient refused to complete or attempt activity 9 The patient did not perform the activity before the current illness or injury 88 Not attempted due to Medical conditions or safety concerns Education OT Patient Education: Purpose of tx/functional activities, Rehab process Teaching Recipient: Patient Teaching Methods: Discussion Response to Teaching: Verbalize Understanding OT Film Recordist Goals Group Home Goals Time Frame: Oct 30, 2018 Eating (FIM): 6 Grooming(FIM): 6 Bathing(FIM): 5 Upper Body Dressing(FIM): 5 Lower Body Dressing(FIM): 5 Toileting(FIM): 5 Toilet/Commode Transfer(FIM): 5 Shower Transfer(FIM): 5 Additional Goals: 1-Demonstrate ADL Tasks, 2-Verbalize Understanding, 3- ImproveStrength/Romario 1=Demonstrate adherence to instructed precautions during ADL tasks. 2=Patient will verbalize/demonstrate understanding of assistive devices/ modifications for ADL. 3=Patient will improve strength/tolerance for activity to enable patient to perform ADL's. OT Education/Plan Problem List/Assessment Assessment: Decreased Activ Tolerance, Decreased Safety Aware, Decreased UE Strength, Dependent Transfers, Impaired Self-Care Skills Pt would benefit from skilled OT to increase her independence in basic self care Discharge Recommendations Plan/Recommendations: Continue POC Treatment Plan/Plan of Care Treatment,Training & Education: Yes Patient would benefit from OT for education, treatment and training to promote independence in ADL's, mobility, safety and/or upper extremity function for ADL' s. Plan of Care: ADL Retraining, Functional Mobility, UE Funct Exercise/Act, UE Neuromus Re-Ed/Coord Treatment Duration: Oct 30, 2018 Frequency: 5 times per week Estimated Hrs Per Day: .25 hour per day Agreement: Yes Rehab Potential: Fair Time/GCodes Start Time: 13:38 Stop Time: 13:50 Total Time Billed (hr/min): 12 Billed Treatment Time visit, 12 minutes evaluation moderate intensity RUBY REDDING OT Oct 23, 2018 14:02
--- NOTE | 2018-10-23 14:12 | NUR ---
IRF Evaluation: Order received to evaluate patient for the ARU. According to chart, SW is actively working in conjunction with both patient and daughter to establish SNF placement; therefore, the patient will not be further evaluated for the ARU. Thank you for this referral.
[2018-10-24 00:41] VITALS: BP 158/80
[2018-10-24 04:43] VITALS: BP 162/74
[2018-10-24] MEDS: PIPERACILLIN/TAZO 4.5 GM/NS 100 ML IV SCH ×4 (05:03→12:21)
[2018-10-24 05:04] LABS: BASOPHILS % (AUTO) 0 % (0-10); EOSINOPHILS # (AUTO) 0.3 10^3/uL (0.0-0.3); EOSINOPHILS % (AUTO) 4 % (0-10); HEMATOCRIT 29 % (35-52); HEMOGLOBIN 9.4 G/DL (11.5-16.0); LYMPHOCYTES # (AUTO) 2.6 X 10^3 (1.0-4.0); LYMPHOCYTES % (AUTO) 38 % (12-44); MEAN CORPUSCULAR HEMOGLOBIN 29 PG (25-34); MEAN CORPUSCULAR HGB CONC 32 G/DL (32-36); MEAN CORPUSCULAR VOLUME 91 FL (80-99); MONOCYTES # (AUTO) 0.8 X 10^3 (0.0-1.0); MONOCYTES % (AUTO) 12 % (0-12); NEUTROPHILS # (AUTO) 3.3 X 10^3 (1.8-7.8); NEUTROPHILS % (AUTO) 47 % (42-75); PLATELET COUNT 160 10^3/uL (130-400); RED CELL DISTRIBUTION WIDTH 15.5 % (10.0-14.5); WHITE BLOOD COUNT 6.9 10^3/uL (4.3-11.0)
[2018-10-24 05:28] LABS: BILIRUBIN,TOTAL 0.5 MG/DL (0.1-1.0); CALCIUM 8.3 MG/DL (8.5-10.1); CREATININE SERUM 0.93 MG/DL (0.60-1.30); POTASSIUM 3.7 MMOL/L (3.6-5.0); TOTAL PROTEIN 5.4 GM/DL (6.4-8.2)
[2018-10-24 08:00] VITALS: BP 125/58
[2018-10-24] MEDS: ASPIRIN 81 MG CHEW (CHILDREN'S ASA) PO SCH (09:00)
[2018-10-24] MEDS ORDERED: AMOX-355 PO (09:42)
--- NOTE | 2018-10-24 09:45 | Discharge Inst-Skilled Nursing ---
Discharge Inst-Skilled NF Patient Instructions Patient Problems: Aspiration pneumonia Side effect from Seroquel Dementia Goal: Return to independent living Consult/Follow Up/Orders Follow Up Appt.: [facility] rounds Skilled NF Admit to: [facility] Certification (SNF) I certify that SNF services are required to be given on an inpatient basis because of the above named patient's need for nursing home care on a continuing basis for the conditions(s) for which he/she was receiving inpatient hospital services prior to his/her transfer to the SNF. Shelter Facility Order: Nursing Services, Habilitation Training Specialist-Evaluate & Treat, Physical Therapy-Evaluate & Treat, Speech Language-Evaluate & Treat Discharge Diet: No Restrictions Daily Activity as Tolerated: Yes New & Resume Previous Orders Fariha Parnell Oct 24, 2018 09:45 FARIHA PARNELL DO Oct 24, 2018 09:45
--- NOTE | 2018-10-24 09:47 | Discharge Summary-Hospitalist ---
Diagnosis/Chief Complaint Date of Admission Oct 21, 2018 at 14:08 Date of Discharge Discharge Date: Oct 24, 2018 Admission Diagnosis Assessment: Altered mental status likely due to Seroquel Fever with elevated lactic acid and leukocytosis Dementia Weight loss Frail status Advanced age Depression Plan: Restart all home meds except for cervical Maintain IV fluids Replace potassium and IV fluids Monitor closely May need mcfp placement Discharge Diagnosis (1) Aspiration pneumonia Status: Acute (2) Fever, unknown origin Status: Resolved (3) Lactic acidosis Status: Resolved (4) Dehydration Status: Resolved (5) Advanced age Status: Acute (6) Debility Status: Acute (7) Hypertension Status: Chronic (8) Hyperlipidemia Status: Chronic (9) Anemia Status: Chronic (10) Depression Status: Chronic (11) Hypokalemia Status: Acute (12) Leukocytosis Status: Acute (13) Altered mental status Status: Acute (14) Side effect of medication Status: Acute Discharge Summary Discharge Physical Exam Allergies: Coded Allergies: quetiapine (Verified Adverse Reaction, Unknown, 10/21/18) confusion Vitals & I&Os Vital Signs Date Time Temp Pulse Resp B/P (MAP) Pulse Ox O2 Delivery O2 Flow Rate FiO2 10/24/18 08:00 98.3 63 16 125/58 (80) 97 Room Air General Appearance: No Apparent Distress, WD/WN, Chronically ill Respiratory: Chest Non Tender, Lungs Clear, Normal Breath Sounds, No Accessory Muscle Use, No Respiratory Distress Cardiovascular: Regular Rate, Rhythm, No Edema, No Gallop, No JVD, No Murmur, Normal Peripheral Pulses Neurologic/Psychiatric: Alert, Oriented x3, No Motor/Sensory Deficits, Normal Mood/Affect, Disoriented (subtle) Hospital Course Hospital course: Patient had an uneventful hospital course she was admitted after and altered mental status episode likely due to Seroquel initiation the day before for the first time. Patient was found to have leukocytosis and elevated lactic acid so she was placed on aspiration pneumonia treatment and monitor closely and given IV fluids and supportive care. Repeat chest x-ray confirmed aspiration pneumonia and she will continue oral antibiotics for 4 more days and be placed in a mcfp likely permanent placement. Labs (last 24 hrs) Laboratory Tests 10/24/18 04:45: White Blood Count 6.9, Red Blood Count 3.20L, Hemoglobin 9.4L, Hematocrit 29L, Mean Corpuscular Volume 91, Mean Corpuscular Hemoglobin 29, Mean Corpuscular Hemoglobin Concent 32, Red Cell Distribution Width 15.5H, Platelet Count 160, Mean Platelet Volume 9.0, Neutrophils (%) (Auto) 47, Lymphocytes (%) (Auto) 38, Monocytes (%) (Auto) 12, Eosinophils (%) (Auto) 4, Basophils (%) (Auto) 0, Neutrophils # (Auto) 3.3, Lymphocytes # (Auto) 2.6, Monocytes # (Auto) 0.8, Eosinophils # (Auto) 0.3, Basophils # (Auto) 0.0, Sodium Level 141, Potassium Level 3.7, Chloride Level 109H, Carbon Dioxide Level 24, Anion Gap 8, Blood Urea Nitrogen 9, Creatinine 0.93, Estimat Glomerular Filtration Rate 57, BUN/ Creatinine Ratio 10, Glucose Level 85, Calcium Level 8.3L, Corrected Calcium 9.1 , Total Bilirubin 0.5, Aspartate Amino Transf (AST/SGOT) 18, Alanine Aminotransferase (ALT/SGPT) 18, Alkaline Phosphatase 67, Total Protein 5.4L, Albumin 3.0L Microbiology 10/21/18 Blood Culture - Preliminary, Resulted No growth 10/21/18 Influenza Types A,B Antigen (SOSA) - Final, Complete Patient resulted labs reviewed. Pending Labs Laboratory Tests 10/24/18 04:45: White Blood Count 6.9, Red Blood Count 3.20, Hemoglobin 9.4, Hematocrit 29, Mean Corpuscular Volume 91, Mean Corpuscular Hemoglobin 29, Mean Corpuscular Hemoglobin Concent 32, Red Cell Distribution Width 15.5, Platelet Count 160, Mean Platelet Volume 9.0, Neutrophils (%) (Auto) 47, Lymphocytes (%) (Auto) 38, Monocytes (%) (Auto) 12, Eosinophils (%) (Auto) 4, Basophils (%) (Auto) 0, Neutrophils # (Auto) 3.3, Lymphocytes # (Auto) 2.6, Monocytes # (Auto) 0.8, Eosinophils # (Auto) 0.3, Basophils # (Auto) 0.0, Sodium Level 141, Potassium Level 3.7, Chloride Level 109, Carbon Dioxide Level 24, Anion Gap 8, Blood Urea Nitrogen 9, Creatinine 0.93, Estimat Glomerular Filtration Rate 57, BUN/ Creatinine Ratio 10, Glucose Level 85, Calcium Level 8.3, Corrected Calcium 9.1 , Total Bilirubin 0.5, Aspartate Amino Transf (AST/SGOT) 18, Alanine Aminotransferase (ALT/SGPT) 18, Alkaline Phosphatase 67, Total Protein 5.4, Albumin 3.0 Discussion & Recommendations Discharge Planning: <30 minutes discharge planning Discharge Home Medications: Active Scripts Active Augmentin 500-125 Tablet (Amoxicillin/Potassium Clav) 1 Each Tablet 1 Each PO BID Reported Tylenol 8 Hour (Acetaminophen) 650 Mg Tablet.er 650 Mg PO BID Lexapro (Escitalopram Oxalate) 10 Mg Tablet 10 Mg PO DAILY Fish Oil 1,000 mg Capsule ([place] 3 Polyunsat Fatty Acids) 1,000 Mg Cap 1,000 Mg PO DAILY Aspir 81 (Aspirin) 81 Mg Tablet.dr 81 Mg PO DAILY Instructions to patient/family Please see electronic discharge instructions given to patient. Clinical Quality Measures DVT/VTE Risk/Contraindication: Risk Factor Score Per Nursin RFS Level Per Nursing on Admit: 3=High Problem Qualifiers (1) Aspiration pneumonia: Aspiration pneumonia type: unspecified Laterality: right Lung location: lower lobe of lung Qualified Codes: J69.0 - Pneumonitis due to inhalation of food and vomit (2) Hypertension: Hypertension type: essential hypertension Qualified Codes: I10 - Essential ( primary) hypertension (3) Anemia: Anemia type: unspecified type Qualified Codes: D64.9 - Anemia, unspecified (4) Depression: Depression Type: unspecified Qualified Codes: F32.9 - Major depressive disorder, single episode, unspecified (5) Leukocytosis: Leukocytosis type: leukemoid reaction Qualified Codes: D72.823 - Leukemoid reaction (6) Altered mental status: Altered mental status type: stupor Qualified Codes: R40.1 - [place] SATINDER MARRUFO DO Oct 24, 2018 09:47
--- NOTE | 2018-10-24 10:09 | Physical Therapy Daily Note ---
PT Daily Note-Current Subjective Patient agrees to PT. Pain Numeric Pain Scale: 0-No Pain Location: No Pain Reported Mental Status Patient Orientation: Person, Time Transfers Therapy Code Descriptions/Definitions Functional [place] Measure: 0=Not Assessed/NA 4=Minimal Assistance 1=Total Assistance 5=Supervision or Setup 2=Maximal Assistance 6=Modified [place] 3=Moderate Assistance 7=Complete [place] Therapy Quality Codes: 6 Independent with activity with or without an assistive device 5 Patient requires set up or clean up by helper. Patient completes activity by themselves 4 Supervision or touching assist (CGA). [place] provide cues , steadying assist 3 The helper provides less than half the effort to complete the activity 2 The helper provides more than half the effort to complete the activity 1 Dependent. The helper does all the effort to complete an activity 7 Patient refused to complete or attempt activity 9 The patient did not perform the activity before the current illness or injury 88 Not attempted due to Medical conditions or safety concerns Transfers (B, C, W/C) (FIM): 5 Scootin Sit to/from Stand: 5 Gait Training Gait (FIM): 5 Distance (FIM): 3=150 ft Distance: 800' Gait Level of Assist: 5 Gait Assistive Device: FWW WBOS, shuffle gait sequence with extended UE's with FWW use Assessment skilled cues for body placement in FWW due to extended UE's. Patient tolerated treatment well and remains up in recliner with chair alarm activated. PT Short Term Goals Short Term Goals Time Frame: Oct 30, 2018 Gait (FIM): 5 Gait Distance Comment: 250' Gait Level of Assist: 5 Gait Assistive Device: FWW PT Plan Treatment/Plan Treatment Plan: Continue Plan of Care Treatment Plan: Bed Mobility, Education, Functional Activity [place], Functional Strength, Gait, Safety, Therapeutic Exercise, Transfers Treatment Duration: Oct 30, 2018 Frequency: 6 times per week Estimated Hrs Per Day: .25 hour per day (15-30') Patient and/or Family Agrees t: Yes Time/GCodes Time In: 955 Time Out: 1005 Total Billed Treatment Time: 10 Total Billed Treatment 1 visit GT 10 min DEVIN FINCH PT Oct 24, 2018 10:09
--- NOTE | 2018-10-24 10:57 | NUR ---
CM/SS. Patient discharged to new Medicare skilled placement with [facility], transport scheduled for 1430. NH understands to bring wheelchair for patient, no O2 is needed. CARE Assessment completed with patient, processed with [facility]. Faxed orders and CARE to SNF, continuum of care packet prepared to accompany patient. Patient and her daughter/POA Emani both aware of all arrangements. Unit RN updated.
--- NOTE | 2018-10-24 12:06 | NUR ---
provided prayer and Communion.
[2018-10-24 12:40] VITALS: BP 161/70
[2018-10-24 14:32] VITALS: BP 125/58
--- NOTE | 2018-10-24 15:05 | NUR ---
Called Report to DAWSON Magdaleno at [facility].
== END 2018-10-24 14:30 | DRG 178 ==
LOC: EDUNIT# 07:07 → ER 07:08 → 4TH 14:08
PROVIDERS: ADMIT Internal Medicine; ATTEND Internal Medicine
DX: J69.0 Pneumonitis due to inhalation of food and vomit (principal); E87.2 Acidosis; E86.0 Dehydration; R54 Age-related physical debility; R63.4 Abnormal weight loss; R11.2 Nausea with vomiting, unspecified; R19.7 Diarrhea, unspecified; R40.1 Stupor; T43.595A Adverse effect of other antipsychotics and neuroleptics, initial encounter; I49.3 Ventricular premature depolarization; I10 Essential (primary) hypertension; F03.90 Unspecified dementia, unspecified severity, without behavioral disturbance, psychotic disturbance, mood disturbance, and anxiety; M10.9 Gout, unspecified; E05.90 Thyrotoxicosis, unspecified without thyrotoxic crisis or storm; E87.6 Hypokalemia; F32.9 Major depressive disorder, single episode, unspecified; D64.9 Anemia, unspecified
CPT/HCPCS: 36415; 70450; 71045; 71046; 80053; 81000; 83605; 84484; 85025; 86141; 87040; 87804; 90471; 90686; 93005; 96361; 96365; 96375

== ENCOUNTER 2018-12-02 16:14 | Emergency (ER) | payer MEDICARE, OTHER, MEDICAID ==
[~2018-12-02] VITALS: Ht 162.6 cm; Wt 53.1 kg
[~2018-12-02 16:14] MED LIST changes: +ACET-2840 PO; +AMOX-355 PO
[2018-12-02 17:11] LABS: BASOPHILS % (AUTO) 0 % (0-10); EOSINOPHILS % (AUTO) 0 % (0-10); HEMATOCRIT 35 % (35-52); HEMOGLOBIN 11.5 G/DL (11.5-16.0); LYMPHOCYTES % (AUTO) 19 % (12-44); MEAN CORPUSCULAR HEMOGLOBIN 30 PG (25-34); MEAN CORPUSCULAR HGB CONC 33 G/DL (32-36); MEAN CORPUSCULAR VOLUME 90 FL (80-99); MONOCYTES # (AUTO) 1.1 X 10^3 (0.0-1.0); MONOCYTES % (AUTO) 10 % (0-12); NEUTROPHILS # (AUTO) 7.5 X 10^3 (1.8-7.8); NEUTROPHILS % (AUTO) 70 % (42-75); PLATELET COUNT 208 10^3/uL (130-400); RED CELL DISTRIBUTION WIDTH 15.1 % (10.0-14.5); WHITE BLOOD COUNT 10.6 10^3/uL (4.3-11.0)
--- NOTE | 2018-12-02 17:12 | ED Back Pain ---
General Chief Complaint: Back Problems Stated Complaint: BACK PAIN,INJ IN SHOWER Nursing Triage Note: PT REPORTS FALLING BACKWARDS INTO THE TOWEL RACK. PT DENIES HITTING HEAD OR LOC. PT REPORTS LEFT HIP PAIN FROM HER SKIN BURNING. Nursing Sepsis Screen: No Definite Risk Source of Information: Patient Exam Limitations: No Limitations History of Present Illness Date Seen by Provider: Dec 02, 2018 Time Seen by Provider: 17:08 Initial Comments To ER with left thoracic back and left flank pain. This began while at [facility], she was in the bathroom when she fell backwards into the ground bar/stability handle in the bathroom. She has been able to walk but she complains of some left hip pain. She's had a cough but this has been present since even before the fall/injury. She did not hit her head and denies any neck pain. She denies any anticoagulant use. Denies any shortness of breath. He states that the last time she was here she had rib fractures on the right from a fall but does not have any right-sided pain today.. Location: Lumbar Spine, Paraspinous Muscles Timing/Duration: 1-3 Hours Severity: Moderate Pain/Injury Location: Back Method of Injury: Direct Blow, Fall Modifying Factors: Worse With Movement Allergies and Home Medications Allergies Coded Allergies: quetiapine (Verified Adverse Reaction, Unknown, 12/02/18) confusion Home Medications Acetaminophen 650 Mg Tablet.er, 650 MG PO BID, (Reported) Amoxicillin/Potassium Clav 1 Each Tablet, 1 EACH PO BID Prescribed by: SATINDER MARRUFO on 10/24/18 0942 Aspirin 81 Mg Tablet.dr, 81 MG PO DAILY, (Reported) Escitalopram Oxalate 10 Mg Tablet, 10 MG PO DAILY, (Reported) Hydrocodone/Acetaminophen 1 Each Tablet, 1 EACH PO Q6H PRN for PAIN-MODERATE Prescribed by: PEMA FARIAS on 12/02/18 7557 [place] 3 Polyunsat Fatty Acids 1,000 Mg Cap, 1,000 MG PO DAILY, (Reported) Patient Home Medication List Home Medication List Reviewed: Yes Review of Systems Constitutional: see HPI EENTM: see HPI Respiratory: no symptoms reported Cardiovascular: no symptoms reported Genitourinary: no symptoms reported Musculoskeletal: see HPI, back pain Skin: no symptoms reported Psychiatric/Neurological: No Symptoms Reported Past Sxvpyyn-Agfkms-Oanjvx Hx Patient Social History Alcohol Use: Denies Use Recreational Drug Use: No Smoking Status: Never a Smoker Recent Foreign Travel: No Contact w/Someone Who Travel: No Recent Infectious Disease Expo: No Recent Hopitalizations: No Immunizations Up To Date Tetanus Booster (TDap): Unknown PED Vaccines UTD: No Date of Pneumonia Vaccine: Jul 22, 2017 Date of Influenza Vaccine: Jul 22, 2017 Seasonal Allergies Seasonal Allergies: No Past Medical History Surgeries: No Respiratory: No Currently Using CPAP: No Currently Using BIPAP: No Cardiac: Yes (SEES DR. MOTTA UNSURE WHY) Hypertension Neurological: Yes Dementia Reproductive Disorders: No Female Reproductive Disorders: Denies Sexually Transmitted Disease: No HIV/AIDS: No Genitourinary: Yes UTI-Chronic Gastrointestinal: No Musculoskeletal: Yes Fractures, Gout Endocrine: Yes Hyperthyroidism HEENT: Yes Cataract Loss of Vision: Denies Hearing Impairment: Hard of Hearing Cancer: No Psychosocial: No Integumentary: No Recent Skin Changes Blood Disorders: No Adverse Reaction/Blood Tranf: No Family Medical History Dementia G8 SISTER Diabetes mellitus 19 FATHER No Pertinent Family Hx, Diabetes, Psychiatric Problems Physical Exam Vital Signs Vital Signs - First Documented 12/02/18 16:20 Temp 97.0 Pulse 80 Resp 16 B/P (MAP) 201/94 (129) Pulse Ox 95 Capillary Refill : Less Than 3 Seconds Height, Weight, BMI Height: 5'4.00" Weight: 117lbs. 8.0oz. 53.658966mc; 19.5 BMI Method:Stated General Appearance: No Apparent Distress, WD/WN, Other (alert and oriented GCS 15) Neck: Full Range of Motion, Normal Inspection Respiratory: No Accessory Muscle Use, No Respiratory Distress, Other (left posterior and lateral chest wall is tender to palpation. ) Gastrointestinal: Normal Bowel Sounds, Non Tender, Soft Back: Other (there is ecchymosis and tenderness to palpation over approximately T10 to L2 left paraspinous region.) Extremity: Normal Capillary Refill, Normal Inspection Neurologic/Psychiatric: Alert, Oriented x3, No Motor/Sensory Deficits Skin: Normal Color, Warm/Dry Progress/Results/Core Measures Results/Orders Lab Results Laboratory Tests Test 12/02/18 16:50 12/02/18 17:35 Range/Units White Blood Count 10.6 4.3-11.0 10^3/uL Red Blood Count 3.85 L 4.35-5.85 10^6/uL Hemoglobin 11.5 11.5-16.0 G/DL Hematocrit 35 35-52 % Mean Corpuscular Volume 90 80-99 FL Mean Corpuscular Hemoglobin 30 25-34 PG Mean Corpuscular Hemoglobin Concent 33 32-36 G/DL Red Cell Distribution Width 15.1 H 10.0-14.5 % Platelet Count 208 130-400 10^3/uL Mean Platelet Volume 9.0 7.4-10.4 FL Neutrophils (%) (Auto) 70 42-75 % Lymphocytes (%) (Auto) 19 12-44 % Monocytes (%) (Auto) 10 0-12 % Eosinophils (%) (Auto) 0 0-10 % Basophils (%) (Auto) 0 0-10 % Neutrophils # (Auto) 7.5 1.8-7.8 X 10^3 Lymphocytes # (Auto) 2.0 1.0-4.0 X 10^3 Monocytes # (Auto) 1.1 H 0.0-1.0 X 10^3 Eosinophils # (Auto) 0.0 0.0-0.3 10^3/uL Basophils # (Auto) 0.0 0.0-0.1 10^3/uL Sodium Level 138 135-145 MMOL/L Potassium Level 3.8 3.6-5.0 MMOL/L Chloride Level 101 98-107 MMOL/L Carbon Dioxide Level 23 21-32 MMOL/L Anion Gap 14 5-14 MMOL/L Blood Urea Nitrogen 18 7-18 MG/DL Creatinine 0.95 0.60-1.30 MG/DL Estimat Glomerular Filtration Rate 56 BUN/Creatinine Ratio 19 Glucose Level 121 H 70-105 MG/DL Calcium Level 9.4 8.5-10.1 MG/DL Urine Color YELLOW Urine Clarity SLIGHTLY CLOUDY Urine pH 6.5 5-9 Urine Specific [place] 1.015 L 1.016-1.022 Urine Protein 3+ H NEGATIVE Urine Glucose (UA) NEGATIVE NEGATIVE Urine Ketones NEGATIVE NEGATIVE Urine Nitrite NEGATIVE NEGATIVE Urine Bilirubin NEGATIVE NEGATIVE Urine Urobilinogen NORMAL NORMAL MG/DL Urine Leukocyte Esterase 1+ H NEGATIVE Urine RBC (Auto) 2+ H NEGATIVE Urine RBC 0-2 /HPF Urine WBC 2-5 /HPF Urine Squamous Epithelial Cells NONE /HPF Urine Crystals NONE /LPF Urine Bacteria NEGATIVE /HPF Urine Casts NONE /LPF Urine Mucus NEGATIVE /LPF Urine Culture Indicated NO My Orders Orders - PEMA FARIAS APRN Cbc With Automated Diff (12/02/18 16:54) Basic Metabolic Panel (12/02/18 16:54) Chest Pa/Lat (2 View) (12/02/18 16:54) Ct Abdomen/Pelvis Wo (12/02/18 16:54) Ct Thoracic/Lumbar Spine Wo (12/02/18 17:08) Hydrocodone/Apap 5/325 Tablet (Lortab 5 (12/02/18 17:15) Ua Culture If Indicated (12/02/18 17:12) Vital Signs/I&O 12/02/18 16:20 Temp 97.0 Pulse 80 Resp 16 B/P (MAP) 201/94 (129) Pulse Ox 95 Blood Pressure Mean: 129 Diagnostic Imaging Diagonstic Imaging: Xray Plain Films/CT/US/NM/MRI: chest Comments NAME: SUDARSHAN BARBOSA [facility] REC#: [id number] PT STATUS: REG ER : 1935 PHYSICIAN: PEMA FARIAS APRN ADMIT DATE: 12/02/18/ER Draft Date of Exam:12/02/18 CHEST PA/LAT (2 VIEW) EXAMINATION: CHEST (PA AND LATERAL) CLINICAL INDICATION: 83-year-old female, fall. Chest pain. COMPARISON: October 23, 2018. FINDINGS: Heart size and mediastinal contours are unremarkable. There is no identified pneumothorax. There is no pleural effusion. There is no identified focal airspace consolidation. There are right-sided rib deformities which appear unchanged since comparison exam. There is an area of calcific attenuation overlying the right lateral chest which was also seen previously. This is not specific. IMPRESSION: 1. No identified interval acute cardiopulmonary abnormality. 2. Redemonstrated right-sided rib fractures. Dictated on workstation # [id number] Dict: 12/02/181721 Trans: 12/02/181725 [facility] [id number] Interpreted by: YAYA OLMSTEAD MD Electronically signed by: Departure Communication (Admissions) [id number]-discussed the case with Dr. Jack, agrees with plan to discharge home with pain control, deep breathing instructions and follow-up. Impression Primary Impression: Left rib fracture Qualified Codes: S22.32XA - Fracture of one rib, left side, initial encounter for closed fracture Additional Impressions: L1/L2 Transverse process fracture Bronchitis Disposition: 01 HOME, SELF-CARE Condition: Stable Departure-Patient Inst. Decision time for Depature: 17:36 Referrals: HERNESTO CATALAN MD (PCP/Family) Primary Care Physician Patient Instructions: RIB FRACTURE Add. Discharge Instructions: 1. Return to ER for any concerns 2. Follow-up with your doctor next week 3. Pain medication as directed. However beware that the pain medication is constipating so increase her water intake and take a stool softener such as Colace if you did not already. You'll need to take a deep breath several times every hour to help reduce the likelihood of development of pneumonia. All discharge instructions reviewed with patient and/or family. Voiced understanding. Scripts Cefuroxime Axetil (Cefuroxime) 250 Mg Tablet 250 MG PO BID, #10 TAB Prov: PEMA FARIAS APRN 12/02/18 Hydrocodone/Acetaminophen (Clear 5-325 Tablet) 1 Each Tablet 1 EACH PO Q6H PRN for PAIN-MODERATE MDD 10, #20 TAB Prov: PEMA FARIAS APRN 12/02/18 Images Torso/Trunk 1 - Ecchymosis, Tenderness PEMA FARIAS APRN Dec 02, 2018 17:12
[2018-12-02] MEDS ORDERED: HYDROcodone/APAP 5 MG/325 MG (LORTAB) TAB PO ONE (17:15)
--- NOTE | 2018-12-02 17:27 | Diagnostic Imaging Report ---
EXAMINATION: CHEST (PA AND LATERAL) CLINICAL INDICATION: 83-year-old female, fall. Chest pain. COMPARISON: October 23, 2018. FINDINGS: Heart size and mediastinal contours are unremarkable. There is no identified pneumothorax. There is no pleural effusion. There is no identified focal airspace consolidation. There are right-sided rib deformities which appear unchanged since comparison exam. There is an area of calcific attenuation overlying the right lateral chest which was also seen previously. This is not specific. IMPRESSION: 1. No identified interval acute cardiopulmonary abnormality. 2. Redemonstrated right-sided rib fractures. Dictated by: Dictated on workstation # [id number]
[2018-12-02 17:29] LABS: CALCIUM 9.4 MG/DL (8.5-10.1); CREATININE SERUM 0.95 MG/DL (0.60-1.30); POTASSIUM 3.8 MMOL/L (3.6-5.0)
[2018-12-02] MEDS ORDERED: HYDR-4226 PO (17:37)
[2018-12-02 17:48] LABS: BILIRUBIN,URINE NEGATIVE (NEGATIVE); CLARITY,URINE SLIGHTLY CLOUDY; COLOR,URINE YELLOW; GLUCOSE, URINE (UA) NEGATIVE (NEGATIVE); KETONES,URINE NEGATIVE (NEGATIVE); LEUKOCYTE ESTERASE ,URINE 1+ (NEGATIVE); NITRITE,URINE NEGATIVE (NEGATIVE); PH,URINE 6.5 (5-9); PROTEIN,URINE 3+ (NEGATIVE); UROBILINOGEN,URINE NORMAL (NORMAL)
--- NOTE | 2018-12-02 17:48 | NUR ---
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
--- NOTE | 2018-12-02 17:59 | Diagnostic Imaging Report ---
PROCEDURE: CT abdomen and pelvis without contrast. TECHNIQUE: Multiple contiguous axial images were obtained through the abdomen and pelvis without the use of intravenous contrast. INDICATION: Status post fall in shower one day earlier. Now with left-sided abdominal pain. CORRELATION STUDY: 10/02/2018 FINDINGS: Evaluation limited given lack of contrast. LOWER THORAX: Heart size borderline with trace pericardial effusion. Small hiatal hernia. No significant basilar infiltrate or pneumothorax. Trace left pleural effusion. LIVER: Unremarkable on unenhanced imaging. GALLBLADDER: Multiple small gallstones. No bile duct dilatation. SPLEEN: Unremarkable. Calcified granuloma. No significant perisplenic fluid collection. PANCREAS: Unremarkable. ADRENAL GLANDS: Unremarkable. KIDNEYS: Slight asymmetric areas of thinning anteriorly of the right kidney. No hydronephrosis or obstruction. ABDOMINAL AORTA: Moderate aortic wall calcification, nonaneurysmal. GASTROINTESTINAL TRACT: Stomach relatively decompressed and does contain some fluid. Small bowel without obstruction. Colon with mild/moderate severity fecal retention. No obstruction or inflammation. No abdominal ascites or free air. URINARY BLADDER: Unremarkable. REPRODUCTIVE: Uterus and adnexa appearing unremarkable. OSSEOUS STRUCTURES: Nondisplaced left posterior lateral 11th rib fracture. Suspect for nondisplaced 10th rib fracture. Additionally, relatively nondisplaced but slightly comminuted fractures about the left L1, L2 transverse processes. Old healed bilateral pubic rami fractures are also present. OTHER: None. IMPRESSION: 1. Nondisplaced left posterior lateral 11th and perhaps 10th rib fractures. Trace left pleural effusion. 2. Comminuted but relatively nondisplaced left L1 and L2 transverse process fractures. Dictated by: Dictated on workstation # [id number]
[2018-12-02 18:02] LABS: BACTERIA,URINE NEGATIVE /HPF; RBC,URINE 0-2 /HPF
--- NOTE | 2018-12-02 18:15 | Diagnostic Imaging Report ---
EXAM: CT thoracic and lumbar spine without contrast. DATE: December 02, 2018. INDICATION: 83-year-old female, thoracic and lumbar spine pain. COMPARISON: CT chest, abdomen and pelvis October 02, 2018. TECHNIQUE: Axial CT images at the level of the thoracic and lumbar spine were obtained. Coronal and sagittal reformats were obtained and provided. FINDINGS: There are limitations of the exam as acquisitions were not separately obtained for both the thoracic and lumbar spine. The combined [id number] of imaging does limit spatial resolution, especially on coronal and sagittal reformats. There is a mild thoracolumbar levocurvature. The anterior to posterior alignment of the thoracic and lumbar spine is unremarkable. There is no identified pars interarticularis defect. There are multilevel mild to moderate disc degenerative changes of the thoracic and lumbar spine. CT is limited for assessment of disc pathology as well as additional non-bony causes of foraminal and spinal stenosis. There is chondrocalcinosis present. There is a very mildly displaced fracture of the left L1 transverse process best illustrated on axial image 134. There is also a very mildly displaced left L2 transverse process fracture. There is no identified fracture specifically at the level of the thoracic spine. There are bilateral sacroiliac degenerative changes. The visualized portions of the lungs are clear. There are atherosclerotic calcifications. IMPRESSION: 1. Very mildly displaced fractures of the left L1 and L2 transverse processes. 2. No identified acute fracture specifically at the level of the thoracic spine. 3. Multilevel mild to moderate disc degenerative changes of the thoracic and lumbar spine. CT is limited for assessment of disc pathology as well as additional non-bony causes of foraminal and spinal stenosis. Dictated by: Dictated on workstation # [id number]
[2018-12-02] MEDS ORDERED: CEFU250T80 PO (18:27)
--- NOTE | 2018-12-02 18:30 | NUR ---
Pt now requesting hydrocodone.
[2018-12-02 18:35] VITALS: BP 192/91
== END 2018-12-02 18:35 | disposition home or self-care (01) ==
LOC: EDUNIT# 16:14 → ER 16:16
DX: S22.32XA Fracture of one rib, left side, initial encounter for closed fracture (principal); S32.018A Other fracture of first lumbar vertebra, initial encounter for closed fracture; R07.9 Chest pain, unspecified; J40 Bronchitis, not specified as acute or chronic; I10 Essential (primary) hypertension; F03.90 Unspecified dementia, unspecified severity, without behavioral disturbance, psychotic disturbance, mood disturbance, and anxiety; M10.9 Gout, unspecified; E05.90 Thyrotoxicosis, unspecified without thyrotoxic crisis or storm; Z87.440 Personal history of urinary (tract) infections; Z88.8 Allergy status to other drugs, medicaments and biological substances; Z79.82 Long term (current) use of aspirin; W18.30XA Fall on same level, unspecified, initial encounter; Y92.002 Bathroom of unspecified non-institutional (private) residence as the place of occurrence of the external cause
CPT/HCPCS: 36415; 71046; 72128; 72131; 74176; 80048; 81000; 85025

== ENCOUNTER → 2019-06-24 | Outpatient (CLI) | payer MEDICARE, OTHER, MEDICAID ==
[~2019-06-24] MED LIST changes: +CEFU250T80 PO; +HYDR-4226 PO; +QUET50TA4 PO; -QUET50TA49 PO
--- NOTE | 2019-06-24 12:43 | Diagnostic Imaging Report ---
INDICATION: Back pain. COMPARISON: CT dated 12/02/2018. FINDINGS: Frontal and lateral views of the lumbar spine were obtained. Alignment and vertebral heights are maintained. There is no fracture or destructive process. Mild multilevel degenerative disease is noted in the lumbar spine. Limited views of the abdomen demonstrate nonobstructive bowel gas pattern. IMPRESSION: 1. No acute fracture or dislocation of the lumbar spine. 2. Mild multilevel degenerative changes. Dictated by: Dictated on workstation # [id number]
--- NOTE | 2019-06-24 13:34 | Diagnostic Imaging Report ---
INDICATION: Back pain. COMPARISON: CT dated 12/02/2018. FINDINGS: Frontal and lateral views of the thoracic spine were obtained. Visualization of the upper thoracic spine is limited on the lateral projection. Alignment and vertebral heights are maintained. There is no fracture or destructive process. There are no large paraspinal masses. Mild degenerative disease is noted in the thoracic spine. Limited views of the lungs are clear. IMPRESSION: 1. No acute fracture or dislocation of the thoracic spine. 2. Mild multilevel degenerative changes. Dictated by: Dictated on workstation # [id number]
== END ==
LOC: RAD 11:28
PROVIDERS: ATTEND Nurse Practitioner Family
DX: M47.816 Spondylosis without myelopathy or radiculopathy, lumbar region (principal); M47.814 Spondylosis without myelopathy or radiculopathy, thoracic region
CPT/HCPCS: 72072; 72100

== ENCOUNTER → 2019-09-23 | Outpatient (CLI) | payer MEDICARE, OTHER, MEDICAID ==
--- NOTE | 2019-09-23 15:58 | Diagnostic Imaging Report ---
INDICATION: 83-year-old postmenopausal female. COMPARISON: None FINDINGS: AP Spine L1-L4: [BMD (g/cm2): 0.832] [T-Score: -3.1] [Z-Score: -0.7] [BMD Previous: N/A] [BMD % Change: N/A] LT Hip Neck: [BMD (g/cm2): 0.770] [T-Score: -1.9] [Z-Score: 0.8] LT Hip Total: [BMD (g/cm2):0.821] [T-Score:-1.5] [Z-Score: 1.1] [BMD Previous: N/A] [BMD % Change: N/A] RT Hip Neck: [BMD (g/cm2):0.819] [T-Score:-1.6] [Z-Score:1.1] RT Hip Total: [BMD (g/cm2):0.786] [T-score:-1.8] [Z-Score:0.9] [BMD Previous:N/A] [BMD % Change:N/A] *Indicates significant change from prior examination based on 95% confidence level. World Health Organization criteria for BMD interpretation classify patients as Normal (T-score at or above -1.0), Osteopenic (T-score between -1.0 and -2.5) or Osteoporotic (T-score at or below -2.5). LIMITATIONS AND MODIFICATION: None. IMPRESSION: 1. Osteoporosis. 2. Baseline examination. 3. See below National Osteoporosis Foundation guidelines on when to potentially initiate pharmacologic therapy. Based on the National Osteoporosis Foundation Guidelines, pharmacologic treatment should be initiated in any of the following, unless clinical conditions suggest otherwise: * Any patient with prior fragility fracture of the hip or vertebrae. A spine fracture indicates 5X risk for subsequent spine fracture and 2X risk for subsequent hip fracture. * Osteoporosis (T-score <-2.5). * Postmenopausal women and men age 50 and older with low bone mass/osteopenia (T-score between -1.0 and -2.5) by DXA and 10-year major osteoporotic fracture greater than 20% or a 10-year probability of hip fracture greater than 3%. These fracture risks are supplied above in the FRAX score, if applicable. * Clinician judgement and/or patient preferences may indicate treatment for people with 10-year fracture probabilities above or below these levels. Dictated by: Dictated on workstation # [id number]
== END ==
LOC: RAD 13:19
PROVIDERS: ATTEND Internal Medicine
DX: M81.0 Age-related osteoporosis without current pathological fracture (principal)
CPT/HCPCS: 77080

== ENCOUNTER → 2019-10-30 | Outpatient (CLI) | payer MEDICARE, OTHER, MEDICAID ==
[~2019-10-30] MED LIST changes: +TRM50T PO
--- NOTE | 2019-10-30 13:22 | Diagnostic Imaging Report ---
INDICATION: Tremors and altered mental status. TECHNIQUE: Multiple contiguous axial images were obtained through the brain without the use of intravenous contrast. Auto Exposure Controls were utilized during the CT exam to meet ALARA standards for radiation dose reduction. COMPARISON: Comparison made with 10/21/2018. FINDINGS: Diffuse atrophic changes are again noted. There are patchy low-density changes in the deep white matter compatible with chronic ischemic change. 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 There is no definite acute appearing abnormality. Ventricles are normal in size and position. Calvarial windows appear unremarkable. Visualized portions of orbits and sinuses are normal. IMPRESSION: Chronic findings as above with no acute abnormality. Dictated by: Dictated on workstation # [id number]
== END ==
LOC: RAD 11:26
PROVIDERS: ATTEND Internal Medicine
DX: I63.81 Other cerebral infarction due to occlusion or stenosis of small artery (principal); G31.89 Other specified degenerative diseases of nervous system; F29 Unspecified psychosis not due to a substance or known physiological condition; M81.0 Age-related osteoporosis without current pathological fracture; R25.1 Tremor, unspecified; R41.82 Altered mental status, unspecified
CPT/HCPCS: 70450

== ENCOUNTER 2020-08-15 23:04 | Emergency (ER) | payer MEDICARE, OTHER, MEDICAID ==
[~2020-08-15] VITALS: Ht 160 cm; Wt 50.0 kg
[~2020-08-15 23:04] MED LIST changes: -ACET-77 PO; +ACET-78 PO; -PANT40TA3 PO; +PANT40TA52 PO; +SIMV20TA26 PO; -SIMV20TA3 PO
[2020-08-15] MEDS ORDERED: NS IV 500 ML 500 ML IV ONE (23:19)
[2020-08-15 23:26] LABS: BASOPHILS % (AUTO) 0 % (0-10); EOSINOPHILS # (AUTO) 0.2 10^3/uL (0.0-0.3); EOSINOPHILS % (AUTO) 2 % (0-10); HEMATOCRIT 37 % (35-52); HEMOGLOBIN 12.1 g/dL (11.5-16.0); LYMPHOCYTES # (AUTO) 4.2 10^3/uL (1.0-4.0); LYMPHOCYTES % (AUTO) 48 % (12-44); MEAN CORPUSCULAR HEMOGLOBIN 29 pg (25-34); MEAN CORPUSCULAR HGB CONC 32 g/dL (32-36); MEAN CORPUSCULAR VOLUME 90 fL (80-99); MEAN PLATELET VOLUME 8.8 fL (9.0-12.2); MONOCYTES % (AUTO) 11 % (0-12); NEUTROPHILS # (AUTO) 3.4 10^3/uL (1.8-7.8); NEUTROPHILS % (AUTO) 39 % (42-75); PLATELET COUNT 186 10^3/uL (130-400); WHITE BLOOD COUNT 8.8 10^3/uL (4.3-11.0)
[2020-08-15 23:29] LABS: BILIRUBIN,URINE NEGATIVE (NEGATIVE); CLARITY,URINE SL CLOUDY; COLOR,URINE YELLOW; GLUCOSE, URINE (UA) NEGATIVE (NEGATIVE); KETONES,URINE NEGATIVE (NEGATIVE); LEUKOCYTE ESTERASE ,URINE TRACE (NEGATIVE); NITRITE,URINE NEGATIVE (NEGATIVE); PROTEIN,URINE NEGATIVE (NEGATIVE)
--- NOTE | 2020-08-15 23:38 | NUR ---
PT IN CT AT THIS TIME.
[2020-08-15 23:39] LABS: FIBRIN DEGRADATION PRODUCTS 0.57 UG/ML (0.00-0.49); PROTHROMBIN TIME PATIENT 13.7 SEC (12.2-14.7)
[2020-08-15 23:41] LABS: ALBUMIN 3.5 GM/DL (3.2-4.5); CHLORIDE 105 MMOL/L (98-107); POTASSIUM 3.8 MMOL/L (3.6-5.0); SODIUM 139 MMOL/L (135-145)
[2020-08-15 23:43] LABS: CALCIUM 8.8 MG/DL (8.5-10.1)
[2020-08-15 23:44] LABS: GLUCOSE 102 MG/DL (70-105); TOTAL PROTEIN 6.5 GM/DL (6.4-8.2)
[2020-08-15 23:45] LABS: BILIRUBIN,TOTAL 0.5 MG/DL (0.1-1.0); CARBON DIOXIDE 23 MMOL/L (21-32)
[2020-08-15 23:47] LABS: ALKALINE PHOSPHATASE 49 U/L (40-136); CREATININE SERUM 1.11 MG/DL (0.60-1.30); GFR ESTIMATED 47
[2020-08-15 23:47] LABS: BACTERIA,URINE NEGATIVE /HPF; RBC,URINE 0-2 /HPF
[2020-08-15 23:48] LABS: BUN/CREATININE RATIO 25
--- NOTE | 2020-08-15 23:49 | ED Neurological Problem ---
General Chief Complaint: Neurological Problems Stated Complaint: UPPER BODY/FACIAL NUMBNESS Nursing Triage Note: PT TO ED W/ C/O UPPER LIP ET BILAT HAND NUMBNESS ONSET TODAY. 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 PT AWAKE, A/OX3 AT THIS TIME, ANSWERS ALL QUESTIONS APPROPRIATELY AT THIS TIME. NO OTHER C/O VOICED. Nursing Sepsis Screen: No Definite Risk Source: patient Exam Limitations: no limitations History of Present Illness Date Seen by Provider: Aug 15, 2020 Time Seen by Provider: 23:15 Initial Comments Here with caregiver reports that the patient had reported numbness to her face and left hand today but also has had some increased confusion over the past day or 2. Noted to have blood pressure elevation that is not typical for her. Blood pressure has been 150s to 170s. She is not on antihypertensive medicines and usually does not have high blood pressure. Patient lives at home with caregivers and ambulates via walker. She was able to ambulate to the room under her own power using the walker without steadiness difficulties. Patient denies chest pain, breathing problems, nausea, vomiting or diarrhea. Caregiver reports that she has not been eating well but that is not a new issue. Did have urine checked a week ago that was negative and she is currently being treated with doxycycline for an eye infection. Timing/Duration: 24 hours, waxing and waning Severity: mild Associated Symptoms: No fever/chills, No nausea/vomiting; paresthesia; No seizures, No trouble walking, No weakness Allergies and Home Medications Allergies Coded Allergies: quetiapine (Verified Adverse Reaction, Unknown, 12/02/18) confusion Home Medications Acetaminophen 650 Mg Tablet.er, 650 MG PO BID, (Reported) Amoxicillin/Potassium Clav 1 Each Tablet, 1 EACH PO BID Prescribed by: SATINDER MARRUFO on 10/24/18 0942 Aspirin 81 Mg Tablet.dr, 81 MG PO DAILY, (Reported) Cefuroxime Axetil 250 Mg Tablet, 250 MG PO BID Prescribed by: PEMA FARIAS on 12/02/18 182 Escitalopram Oxalate 10 Mg Tablet, 10 MG PO DAILY, (Reported) Hydrocodone/Acetaminophen 1 Each Tablet, 1 EACH PO Q6H PRN for PAIN-MODERATE Prescribed by: PEMA FARIAS on 12/02/18 1737 [place] 3 Polyunsat Fatty Acids 1,000 Mg Cap, 1,000 MG PO DAILY, (Reported) Patient Home Medication List Home Medication List Reviewed: Yes Review of Systems Review of Systems Constitutional: see HPI; No chills, No fever Eyes: See HPI, Decreased Acuity (chronic); Denies Pain Ears, Nose, Mouth, Throat: no symptoms reported Respiratory: no symptoms reported Cardiovascular: No chest pain, No edema Gastrointestinal: No abdominal pain, No nausea, No vomiting Genitourinary: no symptoms reported (seen 01 home it more theoretical that was) Skin: no symptoms reported Psychiatric/Neurological: See HPI, Numbness, Tingling All Other Systems Reviewed Negative Unless Noted: Yes Past Bgyqvmp-Qeuric-Slznds Hx Past Med/Social Hx: Reviewed Nursing Past Med/Soc Hx (doing well) Patient Social History Alcohol Use: Denies Use Recreational Drug Use: No Smoking Status: Never a Smoker Recent Foreign Travel: No Contact w/Someone Who Travel: No Recent Infectious Disease Expo: No Recent Hopitalizations: No Physical Abuse: No Sexual Abuse: No Mistreated: No Fear: No Immunizations Up To Date Tetanus Booster (TDap): Unknown PED Vaccines UTD: No Date of Pneumonia Vaccine: Jul 22, 2017 Date of Influenza Vaccine: Jul 22, 2017 Seasonal Allergies Seasonal Allergies: No Past Medical History Surgeries: No Respiratory: No Currently Using CPAP: No Currently Using BIPAP: No Cardiac: Yes (SEES DR. MOTTA UNSURE WHY) Hypertension Neurological: Yes Dementia Reproductive Disorders: No Female Reproductive Disorders: Denies Sexually Transmitted Disease: No HIV/AIDS: No Genitourinary: Yes UTI-Chronic Gastrointestinal: No Musculoskeletal: Yes Fractures, Gout Endocrine: Yes Hyperthyroidism HEENT: Yes Cataract Loss of Vision: Denies Hearing Impairment: Hard of Hearing Cancer: No Psychosocial: No Integumentary: No Recent Skin Changes Blood Disorders: No Adverse Reaction/Blood Tranf: No Family Medical History Reviewed Nursing Family Hx Dementia G8 SISTER Diabetes mellitus 19 FATHER No Pertinent Family Hx, Diabetes, Psychiatric Problems Physical Exam Vital Signs Vital Signs - First Documented 08/15/20 23:08 Temp 35.8 Pulse 83 Resp 16 B/P (MAP) 192/81 (118) Pulse Ox 98 O2 Delivery Room Air Capillary Refill : Less Than 3 Seconds Height, Weight, BMI Height: 5'4.00" Weight: 117lbs. 8.0oz. 53.024121he; 19.00 BMI Method:Stated General Appearance: WD/WN, no apparent distress, thin HEENT: PERRL/EOMI, pharynx normal Neck: full range of motion, supple Respiratory: lungs clear, normal breath sounds Cardiovascular: regular rate, rhythm, no murmur Gastrointestinal: non tender, soft Extremities: non-tender, normal inspection Neurologic/Psychiatric: alert, oriented x 3 Crainal Nerves: normal speech Coordination/Gait: normal finger to nose, normal gait Motor/Sensory: no motor deficit, other (tingling reported to the left hand and upper lip but otherwise sensation intact and equal throughout the rest of the body) Skin: normal color, warm/dry Progress/Results/Core Measures Results/Orders Lab Results Laboratory Tests Test 08/15/20 23:16 08/15/20 23:23 Range/Units White Blood Count 8.8 4.3-11.0 10^3/uL Red Blood Count 4.17 3.80-5.11 10^6/uL Hemoglobin 12.1 11.5-16.0 g/dL Hematocrit 37 35-52 % Mean Corpuscular Volume 90 80-99 fL Mean Corpuscular Hemoglobin 29 25-34 pg Mean Corpuscular Hemoglobin Concent 32 32-36 g/dL Red Cell Distribution Width 14.4 10.0-14.5 % Platelet Count 186 130-400 10^3/uL Mean Platelet Volume 8.8 L 9.0-12.2 fL Immature Granulocyte % (Auto) 0 % Neutrophils (%) (Auto) 39 L 42-75 % Lymphocytes (%) (Auto) 48 H 12-44 % Monocytes (%) (Auto) 11 0-12 % Eosinophils (%) (Auto) 2 0-10 % Basophils (%) (Auto) 0 0-10 % Neutrophils # (Auto) 3.4 1.8-7.8 10^3/uL Lymphocytes # (Auto) 4.2 H 1.0-4.0 10^3/uL Monocytes # (Auto) 1.0 0.0-1.0 10^3/uL Eosinophils # (Auto) 0.2 0.0-0.3 10^3/uL Basophils # (Auto) 0.0 0.0-0.1 10^3/uL Immature Granulocyte # (Auto) 0.0 0.0-0.1 10^3/uL Neutrophils % (Manual) 39 % Lymphocytes % (Manual) 41 % Monocytes % (Manual) 12 % Atypical Lymphocytes 8 % Blood Morphology Comment NORMAL Prothrombin Time 13.7 12.2-14.7 SEC INR Comment 1.0 0.8-1.4 Activated Partial Thromboplast Time 27 24-35 SEC D-Dimer 0.57 H 0.00-0.49 UG/ML Sodium Level 139 135-145 MMOL/L Potassium Level 3.8 3.6-5.0 MMOL/L Chloride Level 105 98-107 MMOL/L Carbon Dioxide Level 23 21-32 MMOL/L Anion Gap 11 5-14 MMOL/L Blood Urea Nitrogen 28 H 7-18 MG/DL Creatinine 1.11 0.60-1.30 MG/DL Estimat Glomerular Filtration Rate 47 BUN/Creatinine Ratio 25 Glucose Level 102 70-105 MG/DL Calcium Level 8.8 8.5-10.1 MG/DL Corrected Calcium 9.2 8.5-10.1 MG/DL Total Bilirubin 0.5 0.1-1.0 MG/DL Aspartate Amino Transf (AST/SGOT) 24 5-34 U/L Alanine Aminotransferase (ALT/SGPT) 31 0-55 U/L Alkaline Phosphatase 49 40-136 U/L Troponin I < 0.028 <0.028 NG/ML Total Protein 6.5 6.4-8.2 GM/DL Albumin 3.5 3.2-4.5 GM/DL Urine Color YELLOW Urine Clarity SL CLOUDY Urine pH 6.0 5-9 Urine Specific [place] 1.025 H 1.016-1.022 Urine Protein NEGATIVE NEGATIVE Urine Glucose (UA) NEGATIVE NEGATIVE Urine Ketones NEGATIVE NEGATIVE Urine Nitrite NEGATIVE NEGATIVE Urine Bilirubin NEGATIVE NEGATIVE Urine Urobilinogen 0.2 < = 1.0 MG/DL Urine Leukocyte Esterase TRACE H NEGATIVE Urine RBC (Auto) TRACE-I NEGATIVE Urine RBC 0-2 /HPF Urine WBC 2-5 /HPF Urine Squamous Epithelial Cells 2-5 /HPF Urine Crystals NONE /LPF Urine Bacteria NEGATIVE /HPF Urine Casts NONE /LPF Urine Mucus NEGATIVE /LPF Urine Culture Indicated NO My Orders Orders - KRISS SAGASTUME MD Cbc With Automated Diff (08/15/20 23:19) Protime With Inr (08/15/20 23:19) Partial Thromboplastin Time (08/15/20 23:19) Comprehensive Metabolic Panel (08/15/20 23:19) Fibrin Degradation Products (08/15/20 23:19) Troponin I (08/15/20 23:19) Ua Culture If Indicated (08/15/20 23:) Chest 1 View, Ap/Pa Only (08/15/20 23:19) Ekg Tracing (08/15/20 23:19) Nothing By Mouth (08/16/20 Breakfast) Accucheck Stat ONCE (08/15/20 23:19) Ed Iv/Invasive Line Start (08/15/20 23:19) Vital Signs Stroke Patient Q15M (08/15/20 23:19) Ct Head Wo-R/O Stroke (08/15/20 23:19) O2 (08/15/20 23:19) Intake & Output 06,14,22 (08/15/20 23:19) Monitor-Rhythm Ecg Trace Only (08/15/20 23:19) Dysphagia Screening Tool (08/15/20 23:) Lipid Panel (08/16/20 06:00) Ns Iv 500 Ml (Sodium Chloride 0.9%) (08/15/20 23:19) Straight Cath For Spec.-Adult (08/15/20 23:19) Manual Differential (08/15/20 23:16) Medications Given in ED Current Medications Medications Dose Ordered Sig/Kayla Route Start Time Stop Time Status Last Admin Dose Admin Sodium Chloride 500 ml @ 0 mls/hr Q0M ONCE IV 08/15/20 23:19 08/15/20 23:23 DC 08/15/20 23:27 0 MLS/HR Vital Signs/I&O 08/15/20 23:08 Temp 35.8 Pulse 83 Resp 16 B/P (MAP) 192/81 (118) Pulse Ox 98 O2 Delivery Room Air Blood Pressure Mean: 118 Progress Progress Note : Progress Note Seen and evaluated. IV, labs, EKG and chest x-ray ordered. CT head ordered. We did straight catheter UA to rule out urinary tract infection as cause. Normal saline 500 mL bolus. Monitor patient. Initial ECG Impression Date: Aug 15, 2020 Initial ECG Impression Time: 23:50 Initial ECG Rate: 74 Initial ECG Rhythm: Normal Sinus Initial ECG Comparisson: Unchanged Comment Sinus rhythm with leftward axis. No evidence of ST elevation MA. Interpreted by me. Diagnostic Imaging Diagonstic Imaging: CT Plain Films/CT/US/NM/MRI: head Comments No acute findings in the head/brain Reviewed: Reviewed [place] Study, Reviewed by Me Diagonstic Imaging: Xray Plain Films/CT/US/NM/MRI: chest Comments No acute findings Departure Impression Primary Impression: Confusion Disposition: 01 HOME, SELF-CARE Condition: Stable Departure-Patient Inst. Decision time for Depature: 00:54 Referrals: DEEPA BRYAN DO (PCP/Family) Primary Care Physician Patient Instructions: Paresthesia (DC), Delirium (Confusion) (DC) Add. Discharge Instructions: All discharge instructions reviewed with patient and/or family. Voiced understanding. Continue home medications as previously prescribed. Follow-up with your Dr. in a few days for recheck. Monitor and record blood pressure twice daily for the next several days and discuss this with the doctor. Call in the morning for appointment. Return for worse pain, weakness, vision or balance problems, fever or other concerns as needed. Copy Copies To 1: DEEPA BRYAN TIMOTHY D MD Aug 15, 2020 23:49
[2020-08-15 23:50] LABS: ALANINE AMINOTRANSFERASE 31 U/L (0-55)
--- NOTE | 2020-08-16 00:31 | NUR ---
PT RESTING QUIETLY, NO C/O OR CONCERNS VOICED. 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
[2020-08-16 00:52] LABS: ATYPICAL LYMPHOCYTES 8 %; LYMPHOCYTES % (MANUAL) 41 %; MONOCYTES % (MANUAL) 12 %; NEUTROPHILS % (MANUAL) 39 %; RBC MORPH NORMAL
[2020-08-16 01:04] VITALS: BP 177/88
--- NOTE | 2020-08-16 01:04 | NUR ---
PT DISCHARGED TO HOME W/ INSTR. PT TO F/U W/ PCP ET RETURN IF SYMPTOMS CHANGE OR GET WORSE. UNDERSTANDING VOICED.
--- NOTE | 2020-08-16 06:41 | Diagnostic Imaging Report ---
EXAMINATION: CT head without contrast. TECHNIQUE: Multiple contiguous axial images were obtained through the brain without the use of intravenous contrast. All CT scans use one or more of the following dose optimizing techniques: automated exposure control, MA and/or KvP adjustment based on a patient size and exam type, or iterative reconstruction. HISTORY: Neuro deficit COMPARISON: CT head 10/30/2019 FINDINGS: Mild diffuse cerebral volume loss with proportional enlargement of the ventricles and sulci. Moderate hypodensities throughout the supratentorial white matter posterior hemispheres. Chronic bilateral basal ganglia lacunar infarcts. No acute intracranial hemorrhage or abnormal extra-axial fluid collections are present. Calcification of the intracranial ICAs. No hyperdense vessel. The calvarium is intact. The mastoid air cells are clear. The visualized paranasal sinuses are clear. Surgical changes from bilateral cataract repair. IMPRESSION: 1. No acute intracranial abnormality. 2. Chronic senescent changes. 3. Agree with preliminary interpretation. Dictated by: Dictated on workstation # [id number]
--- NOTE | 2020-08-16 07:13 | Diagnostic Imaging Report ---
INDICATION: Altered mental status and confusion. Portable AP image of the chest is obtained. Since 12/02/2018, heart size and pulmonary vascularity remain within normal limits. There is no evidence of pneumothorax or consolidation. Multiple old right rib fractures are present. IMPRESSION: No acute abnormality is detected. Dictated by: Dictated on workstation # [id number]
== END 2020-08-16 01:04 | disposition home or self-care (01) ==
LOC: EDUNIT# 23:04 → ER 23:06
DX: R41.0 Disorientation, unspecified (principal); Z83.3 Family history of diabetes mellitus; Z88.8 Allergy status to other drugs, medicaments and biological substances; Z79.82 Long term (current) use of aspirin
CPT/HCPCS: 36415; 51701; 70450; 71045; 80053; 81000; 84484; 85007; 85027; 85379; 85610; 85730; 93005; 93041

== ENCOUNTER → 2021-01-05 | Outpatient (CLI) | payer MEDICARE, OTHER, MEDICAID ==
[~2021-01-05] MED LIST changes: -ACET-1783 PO; +ACET-2870 PO; -LISI-552 PO; +LISI20TA26 PO; +LISI40TA9 PO
--- NOTE | 2021-01-05 16:11 | Diagnostic Imaging Report ---
PROCEDURE: CT head without contrast. TECHNIQUE: Multiple contiguous axial images were obtained through the brain without the use of intravenous contrast. Auto Exposure Controls were utilized during the CT exam to meet ALARA standards for radiation dose reduction. INDICATION: Visual hallucinations. COMPARISON: 08/15/2020. FINDINGS: Some old ischemic changes in the left basal ganglia as well as chronic periventricular white matter small vessel disease, atherosclerotic calcifications and mild cerebral cortical atrophy, all identical in appearance to the prior. No focal or generalized cerebral edema. No hemorrhage and no evidence for an elevation due to the intracranial pressures. There is no mass or mass effect. Orbits, sinuses and calvarium appear nonacute. IMPRESSION: Stable chronic findings. Dictated by: Dictated on workstation # [id number]
== END ==
LOC: RAD 10:15
PROVIDERS: ATTEND Internal Medicine
DX: F29 Unspecified psychosis not due to a substance or known physiological condition (principal); G31.9 Degenerative disease of nervous system, unspecified; R90.82 White matter disease, unspecified
CPT/HCPCS: 70450

== ENCOUNTER 2021-01-26 10:52 | Emergency (ER) | payer MEDICARE, OTHER, MEDICAID ==
[~2021-01-26] VITALS: Ht 160 cm; Wt 52.0 kg
[2021-01-26] MEDS ORDERED: TETANUS,DIPTH,PERTUSS P/F (BOOSTRIX) 0.5 ML VIAL IM ONE (12:30)
[2021-01-26] MEDS ORDERED: ACETAMINOPHEN 325 MG TABLET PO ONE (12:30)
--- NOTE | 2021-01-26 12:50 | Diagnostic Imaging Report ---
EXAMINATION: CT head without contrast. TECHNIQUE: Multiple contiguous axial images were obtained through the brain without the use of intravenous contrast. All CT scans use one or more of the following dose optimizing techniques: automated exposure control, MA and/or KvP adjustment based on a patient size and exam type, or iterative reconstruction. HISTORY: Fall. COMPARISON: 01/05/2021. FINDINGS: The [place]-white matter differentiation is normal. No mass effect or midline shift. There is age related cerebral atrophy with ex vacuo dilation of the ventricles. Periventricular white matter hypoattenuation is in keeping with chronic small vessel ischemic changes. Basilar cisterns are patent. There are no intra- or extra-axial fluid collections. There is no intracranial hemorrhage. The orbits are normal. Paranasal sinuses are normal. Mastoid air cells are clear. No soft tissue abnormality is seen. No osseous lesions or fractures are seen. IMPRESSION: 1. No acute intracranial abnormality. Dictated by: Dictated on workstation # [id number]
--- NOTE | 2021-01-26 13:05 | ED Fall/Injury ---
General Chief Complaint: Trauma-Non Activation Stated Complaint: FELL Nursing Triage Note: SEE TRIAGE History of Present Illness Date Seen by Provider: Jan 26, 2021 Time Seen by Provider: 11:50 Initial Comments 85-year-old female reports she was stooping over to feed her dog when she lost her balance and fell backwards landing on her buttocks and incurring a laceration to her scalp. She was home with her son denies loss of consciousness, fall unwitnessed. Her home health arrived shortly after and brought her here. Mild soreness on tailbone. She was able to ambulate without difficulty. She denies any other areas of concern. Location Injury Occurred: HOME Occurred: just prior to arrival Severity: mild Injuries/Pain Location: head (Scalp laceration) Context: lost balance Loss of Consciousness: no loss of consciousness (Fall was not witnessed) Associated Symptoms (Fall): Denies Symptoms; No Abdominal Pain, No Chest Pain, No Headache, No Lightheadedness, No Muscle Spasms, No Nausea/Vomiting, No Neck Pain, No Shortness of Air, No Slurred Speech, No Trouble Walking, No Vision Changes Allergies and Home Medications Allergies Coded Allergies: quetiapine (Verified Adverse Reaction, Unknown, 12/02/18) confusion Patient Home Medication List Home Medication List Reviewed: Yes Review of Systems Review of Systems Constitutional: no symptoms reported, see HPI Eyes: No Symptoms Reported, See HPI Ears, Nose, Mouth, Throat: no symptoms reported, see HPI Respiratory: no symptoms reported, see HPI Cardiovascular: no symptoms reported, see HPI Gastrointestinal: no symptoms reported, see HPI Genitourinary: no symptoms reported, see HPI : No Musculoskeletal: no symptoms reported, see HPI Skin: see HPI, other (3 cm laceration to scalp, occipital) All Other Systems Reviewed Negative Unless Noted: Yes Past Gxlqyri-Irddby-Bcsfsv Hx Past Med/Social Hx: Reviewed Nursing Past Med/Soc Hx Patient Social History Alcohol Use: Denies Use Smoking Status: Never a Smoker Recent Infectious Disease Expo: No Recent Hopitalizations: No Immunizations Up To Date Tetanus Booster (TDap): Unknown PED Vaccines UTD: No Date of Pneumonia Vaccine: Jul 22, 2017 Date of Influenza Vaccine: Jul 22, 2017 Seasonal Allergies Seasonal Allergies: No Past Medical History Surgeries: No Respiratory: No Currently Using CPAP: No Currently Using BIPAP: No Cardiac: Yes (SEES DR. MOTTA UNSURE WHY) Hypertension Neurological: Yes Dementia Reproductive Disorders: No Female Reproductive Disorders: Denies Sexually Transmitted Disease: No HIV/AIDS: No Genitourinary: Yes UTI-Chronic Gastrointestinal: No Musculoskeletal: Yes Fractures, Gout Endocrine: Yes Hyperthyroidism HEENT: Yes Cataract Loss of Vision: Denies Hearing Impairment: Hard of Hearing Cancer: No Psychosocial: No Integumentary: No Recent Skin Changes Blood Disorders: No Adverse Reaction/Blood Tranf: No Family Medical History Dementia G8 SISTER Diabetes mellitus 19 FATHER No Pertinent Family Hx, Diabetes, Psychiatric Problems Physical Exam Vital Signs Vital Signs - First Documented 01/26/21 11:15 Temp 36.5 Pulse 70 Resp 18 B/P (MAP) 219/90 (133) Pulse Ox 97 Capillary Refill : Less Than 3 Seconds Height, Weight, BMI Height: 5'4.00" Weight: 117lbs. 8.0oz. 53.380467ie; 20.00 BMI Method:Stated General Appearance: WD/WN, no apparent distress HEENT: PERRL/EOMI, normal ENT inspection, TMs normal, pharynx normal Neck: non-tender, full range of motion, supple Cardiovascular: normal peripheral pulses, regular rate, rhythm, no edema Respiratory: chest non-tender, lungs clear, normal breath sounds Gastrointestinal: normal bowel sounds, non tender, soft Back: normal inspection, no CVA tenderness, no vertebral tenderness Extremities: normal range of motion, non-tender, normal inspection, no pedal edema, no calf tenderness, normal capillary refill, pelvis stable Neurologic/Psychiatric: no motor/sensory deficits, alert, normal mood/affect, oriented x 3 Skin: normal color, warm/dry No active bleeding from laceration to occipital region of scalp. 3 cm in length. [place] Coma Score Best Eye Response: (4) Open Spontaneously Best Verbal Response: (5) Oriented Best Motor Response: (6) Obeys Commands [place] Total: 15 Procedures/Interventions Wound Location: Scalp Wound Length (cm): 3 Wound's Depth, Shape: superficial Wound Explored: clean Irrigated w/ Saline (ccs): 500 Staple Repair: Stapler Skin Precise Number of Sutures: 5 Sterile Dressing Applied?: No Progress Wound well approximated, patient tolerated procedure well. Progress/Results/Core Measures Results/Orders My Orders Orders - DARRYL LOJA Ct Head Wo (01/26/21 12:22) Acetaminophen Tablet/Caplet (Tylenol T (01/26/21 12:30) Dipht,Pertuss(Acell),Tet Adult (Boostrix (01/26/21 12:30) Medications Given in ED Current Medications Medications Dose Ordered Sig/Kayla Route Start Time Stop Time Status Last Admin Dose Admin Acetaminophen 650 mg ONCE ONCE PO 01/26/21 12:30 01/26/21 12:31 DC 01/26/21 12:44 650 MG Vital Signs/I&O 01/26/21 11:15 Temp 36.5 Pulse 70 Resp 18 B/P (MAP) 219/90 (133) Pulse Ox 97 Blood Pressure Mean: 133 Diagnostic Imaging Diagonstic Imaging: CT Plain Films/CT/US/NM/MRI: head Comments NAME: SUD[facility]SHAN [facility] REC#: [id number] PT STATUS: REG ER : 1935 PHYSICIAN: DARRYL LOJA ADMIT DATE: 01/26/21/ER Draft Date of Exam:01/26/21 CT HEAD WO EXAMINATION: CT head without contrast. TECHNIQUE: Multiple contiguous axial images were obtained through the brain without the use of intravenous contrast. All CT scans use one or more of the following dose optimizing techniques: automated exposure control, MA and/or KvP adjustment based on a patient size and exam type, or iterative reconstruction. HISTORY: Fall. COMPARISON: 01/05/2021. FINDINGS: The mad[place]-white matter differentiation is normal. No mass effect or midline shift. There is age related cerebral atrophy with ex vacuo dilation of the ventricles. Periventricular white matter hypoattenuation is in keeping with chronic small vessel ischemic changes. Basilar cisterns are patent. There are no intra- or extra-axial fluid collections. There is no intracranial hemorrhage. The orbits are normal. Paranasal sinuses are normal. Mastoid air cells are clear. No soft tissue abnormality is seen. No osseous lesions or fractures are seen. IMPRESSION: 1. No acute intracranial abnormality. Dictated on workstation # [id number] Dict: 01/26/21 1245 Trans: 01/26/21 1249 [id number] Interpreted by: SERJIO DAVIS MD Electronically signed by: Reviewed: Reviewed by Me Departure Impression Primary Impression: Fall Qualified Codes: W19.XXXA - Unspecified fall, initial encounter Additional Impression: Laceration of scalp Qualified Codes: S01.01XA - Laceration without foreign body of scalp, initial encounter Disposition: 01 HOME, SELF-CARE Condition: Improved Departure-Patient Inst. Decision time for Depature: 13:05 Referrals: DEEPA BRYAN DO (PCP/Family) Primary Care Physician Patient Instructions: Laceration Repair With Aileen (DC), Preventing Falls Add. Discharge Instructions: Use assistance when needing to perform tasks that require bending over or stooping. You may alternate between Tylenol 650 mg and ibuprofen 600 mg every 4 hours for headache or pain. Progress activity as tolerated. You may shower as normal, clean the area where the aileen are with peroxide af ter bathing. Do not apply any ointments or other products to the staple area. Watch for signs of infection: Redness, swelling, discolored drainage, foul smell. Report these immediately to your primary care provider or return to the emergency department Return to the emergency department in 7 to 10 days or your primary care provider to have the aileen removed. Return to the emergency department for new, urgent healthcare needs. All discharge instructions reviewed with patient and/or family. Voiced unders tanding. DARRYL LOJA Jan 26, 2021 13:05
[2021-01-26] MEDS ORDERED: CITA10TA7 (13:09)
[2021-01-26] MEDS ORDERED: PLTR10OP (13:09)
[2021-01-26 13:22] VITALS: BP 168/88
== END 2021-01-26 13:22 | disposition home or self-care (01) ==
LOC: EDUNIT# 10:52 → ER 10:54
DX: S01.01XA Laceration without foreign body of scalp, initial encounter (principal); I10 Essential (primary) hypertension; R40.2410 Glasgow coma scale score 13-15, unspecified time; Z88.8 Allergy status to other drugs, medicaments and biological substances; Z83.3 Family history of diabetes mellitus; W01.0XXA Fall on same level from slipping, tripping and stumbling without subsequent striking against object, initial encounter
CPT/HCPCS: 12002; 70450

== ENCOUNTER 2021-01-30 12:15 | Emergency (ER) | payer MEDICARE, OTHER, MEDICAID ==
[~2021-01-30] VITALS: Ht 154 cm; Wt 76.2 kg
[~2021-01-30 12:15] MED LIST changes: +CITA10TA7; +PLTR10OP
--- NOTE | 2021-01-30 13:12 | ED General ---
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 pt had n/v starting today. pt reports she fell Sunday and hit her head. Pt reports she was seen in ED and has chris placed for the lac on the back of her head. Nursing Sepsis Screen: No Definite Risk Source of Information: Patient Exam Limitations: No Limitations History of Present Illness Date Seen by Provider: Jan 30, 2021 Time Seen by Provider: 12:42 Initial Comments Here with report of fall few days ago and hit her head. States that she fell on her couch. She was seen here that day and did have CT of her head. This morning she woke up with severe headache and high blood pressure. Does not normally have high blood pressure or at least is not treated for it. Had nausea and vomiting on the way here to the emergency department to be seen. Overall doing better now but does still complain of headache. Blood pressure noted to be 200 systolic which is not normal for her per her patient care nursing assistant and family. They state her blood pressures normally in the 130s systolic. Also complains of pain to low buttocks area after the fall. That has not been x-rayed. Timing/Duration: 4-5 Days Severity: Moderate Associated Systoms: No Chest Pain, No Cough, No Fever/Chills; Headaches, Nausea/Vomiting; No Shortness of Air, No Weakness Allergies and Home Medications Allergies Coded Allergies: quetiapine (Verified Adverse Reaction, Unknown, 12/02/18) confusion Home Medications Amlodipine Besylate 5 Mg Tablet, 5 MG PO DAILY Prescribed by: KRISS SAGASTUME on 01/30/21 1506 Patient Home Medication List Home Medication List Reviewed: Yes Review of Systems Review of Systems Constitutional: see HPI; No chills, No fever Respiratory: no symptoms reported Cardiovascular: No chest pain, No edema Gastrointestinal: No abdominal pain; nausea, vomiting Genitourinary: no symptoms reported Musculoskeletal: see HPI, back pain; No muscle weakness, No neck pain Skin: no symptoms reported Psychiatric/Neurological: Headache, Other (Does see a ghost but this is not new and appears unchanged) All Other Systems Reviewed Negative Unless Noted: Yes Past Oiousxn-Naggdc-Vsxkah Hx Past Med/Social Hx: Reviewed Nursing Past Med/Soc Hx Patient Social History Alcohol Use: Denies Use Smoking Status: Never a Smoker Recent Infectious Disease Expo: No Recent Hopitalizations: No Immunizations Up To Date Tetanus Booster (TDap): Unknown PED Vaccines UTD: No Date of Pneumonia Vaccine: Jul 22, 2017 Date of Influenza Vaccine: Jul 22, 2017 Seasonal Allergies Seasonal Allergies: No Past Medical History Surgeries: No Respiratory: No Currently Using CPAP: No Currently Using BIPAP: No Cardiac: Yes (SEES DR. MOTTA UNSURE WHY) Hypertension Neurological: Yes Dementia Reproductive Disorders: No Female Reproductive Disorders: Denies Sexually Transmitted Disease: No HIV/AIDS: No Genitourinary: Yes UTI-Chronic Gastrointestinal: No Musculoskeletal: Yes Fractures, Gout Endocrine: Yes Hyperthyroidism HEENT: Yes Cataract Loss of Vision: Denies Hearing Impairment: Hard of Hearing Cancer: No Psychosocial: No Integumentary: No Recent Skin Changes Blood Disorders: No Adverse Reaction/Blood Tranf: No Family Medical History Reviewed Nursing Family Hx Dementia G8 SISTER Diabetes mellitus 19 FATHER No Pertinent Family Hx, Diabetes, Psychiatric Problems Physical Exam Vital Signs Vital Signs - First Documented 01/30/21 12:45 Temp 36.6 Pulse 108 Resp 20 B/P (MAP) 149/77 (101) Pulse Ox 99 Capillary Refill : Less Than 3 Seconds Height, Weight, BMI Height: 5'4.00" Weight: 117lbs. 8.0oz. 53.222675oi; 32.00 BMI Method:Stated General Appearance: No Apparent Distress, WD/WN HEENT: PERRL/EOMI, TMs Normal, Pharynx Normal Neck: Full Range of Motion, Normal Inspection, Non Tender Respiratory: Lungs Clear, Normal Breath Sounds Cardiovascular: Regular Rate, Rhythm, No Murmur Gastrointestinal: Non Tender, Soft Back: Normal Inspection, No CVA Tenderness, No Vertebral Tenderness, Other (Tender sacrum coccyx area) Extremity: Normal Range of Motion, Non Tender Neurologic/Psychiatric: Alert, Normal Mood/Affect Skin: Normal Color, Warm/Dry Progress/Results/Core Measures Suspected Sepsis Recent Fever Within 48 Hours: No Infection Criteria Present: None New/Unexplained Altered Menta: No Sepsis Screen: No Definite Risk SIRS Temperature: Pulse: 108 Respiratory Rate: 20 Laboratory Tests 01/30/21 13:12: White Blood Count 8.4 Blood Pressure 149 /77 Mean: 101 Laboratory Tests 01/30/21 13:12: Creatinine 1.00, Platelet Count 157, Total Bilirubin 0.6 Results/Orders Lab Results Laboratory Tests Test 01/30/21 13:12 Range/Units White Blood Count 8.4 4.3-11.0 10^3/uL Red Blood Count 4.37 3.80-5.11 10^6/uL Hemoglobin 12.5 11.5-16.0 g/dL Hematocrit 40 35-52 % Mean Corpuscular Volume 92 80-99 fL Mean Corpuscular Hemoglobin 29 25-34 pg Mean Corpuscular Hemoglobin Concent 31 L 32-36 g/dL Red Cell Distribution Width 13.8 10.0-14.5 % Platelet Count 157 130-400 10^3/uL Mean Platelet Volume 8.7 L 9.0-12.2 fL Immature Granulocyte % (Auto) 0 % Neutrophils (%) (Auto) 74 42-75 % Lymphocytes (%) (Auto) 19 12-44 % Monocytes (%) (Auto) 6 0-12 % Eosinophils (%) (Auto) 1 0-10 % Basophils (%) (Auto) 0 0-10 % Neutrophils # (Auto) 6.2 1.8-7.8 10^3/uL Lymphocytes # (Auto) 1.6 1.0-4.0 10^3/uL Monocytes # (Auto) 0.5 0.0-1.0 10^3/uL Eosinophils # (Auto) 0.1 0.0-0.3 10^3/uL Basophils # (Auto) 0.0 0.0-0.1 10^3/uL Immature Granulocyte # (Auto) 0.0 0.0-0.1 10^3/uL Sodium Level 136 135-145 MMOL/L Potassium Level 4.2 3.6-5.0 MMOL/L Chloride Level 101 98-107 MMOL/L Carbon Dioxide Level 22 21-32 MMOL/L Anion Gap 13 5-14 MMOL/L Blood Urea Nitrogen 25 H 7-18 MG/DL Creatinine 1.00 0.60-1.30 MG/DL Estimat Glomerular Filtration Rate 53 BUN/Creatinine Ratio 25 Glucose Level 158 H 70-105 MG/DL Calcium Level 9.0 8.5-10.1 MG/DL Corrected Calcium 9.2 8.5-10.1 MG/DL Total Bilirubin 0.6 0.1-1.0 MG/DL Aspartate Amino Transf (AST/SGOT) 24 5-34 U/L Alanine Aminotransferase (ALT/SGPT) 27 0-55 U/L Alkaline Phosphatase 57 40-136 U/L Troponin I < 0.028 <0.028 NG/ML Total Protein 6.8 6.4-8.2 GM/DL Albumin 3.7 3.2-4.5 GM/DL My Orders Orders - KRISS SAGASTUME MD Cbc With Automated Diff (01/30/21 12:50) Comprehensive Metabolic Panel (01/30/21 12:50) Troponin I (01/30/21 12:50) Ct Head Wo (01/30/21 12:50) Ed Iv/Invasive Line Start (01/30/21 12:50) Ekg Tracing (01/30/21 12:57) Pelvis (01/30/21 13:35) Sacrum And Coccyx (01/30/21 13:35) Amlodipine Tablet (Norvasc Tablet) (01/30/21 15:00) Medications Given in ED Current Medications Medications Dose Ordered Sig/Kayla Route Start Time Stop Time Status Last Admin Dose Admin Amlodipine Besylate 5 mg ONCE ONCE PO 01/30/21 15:00 01/30/21 15:01 DC 01/30/21 14:57 5 MG Vital Signs/I&O 01/30/21 12:45 Temp 36.6 Pulse 108 Resp 20 B/P (MAP) 149/77 (101) Pulse Ox 99 Capillary Refill : Less Than 3 Seconds Blood Pressure Mean: 101 Progress Note : Progress Note Seen and evaluated. CT head, EKG and labs ordered. Added pelvic and sacral coccyx x-rays. Monitor patient. 1500: Labs reviewed no acute findings. CT and x-rays reviewed and no acute findings. Amlodipine 5 mg p.o. has been given. I did discuss the case with the patient's daughter. We will continue amlodipine 5 daily and have her follow-up with her doctor. I did write a 30-day prescription and I will send a copy of the chart to Dr. Holliday. Discharged home with return precautions. Patient's daughter and patient's acquisition consultant verbalized understanding of instructions and agreement with plan. ECG Initial ECG Impression Date: Jan 30, 2021 Initial ECG Impression Time: 13:08 Initial ECG Rate: 73 Initial ECG Rhythm: Normal Sinus Comment Sinus rhythm with artifact. Left axis deviation. No evidence of ST elevation NV. Similar to 08/15/2020. Interpreted by me. Diagnostic Imaging Diagonstic Imaging: CT Plain Films/CT/US/NM/MRI: head [facility] [place] [place] NAME: [facility]AN [facility] REC#: [id number] PT STATUS: REG ER : 1935 PHYSICIAN: KRISS SAGASTUME MD ADMIT DATE: 01/30/21/ER Signed Date of Exam:01/30/21 CT HEAD WO PROCEDURE: CT head without contrast. TECHNIQUE: Multiple contiguous axial images were obtained through the brain without the use of intravenous contrast. Auto Exposure Controls were utilized during the CT exam to meet ALARA standards for radiation dose reduction. INDICATION: Fall with headache and hypertension FINDINGS: There is prominence of the ventricles and sulci. There is no hydrocephalus or cerebral edema. There is no midline shift or mass-effect. There is no intracranial mass, hemorrhage, or extra-axial fluid collection. There is some diffuse decreased attenuation of the periventricular white matter which is nonspecific. The visualized paranasal sinuses and mastoid air cells are clear. There are no regional areas of decreased attenuation appreciated to suggest an acute CVA. IMPRESSION: 1. No acute intracranial process. 2. Age-appropriate atrophy. 3. Decreased attenuation of the periventricular white matter which is nonspecific, however, likely reflects senescent change and/or chronic small vessel ischemic disease. Dictated by: Dictated on workstation # [id number] Dict: 01/30/21 1333 Trans: 01/30/21 1355 [facility] [id number] Interpreted by: REMBERTO UPTON MD Electronically signed by: REMBERTO UPTON MD 01/30/21 1354 Diagonstic Imaging: Xray Plain Films/CT/US/NM/MRI: pelvis Comments [facility] [place] [place] NAME: SUDARSHAN [facility]RA[facility] REC#: [id number] PT STATUS: REG ER : 1935 PHYSICIAN: KRISS SAGASTUME MD ADMIT DATE: 01/30/21/ER Draft Date of Exam:01/30/21 PELVIS INDICATION: Fall with pain. FINDINGS: There are chronic-appearing fracture deformities of the obturator rings bilaterally. Proximal femurs are intact. No acute fracture or dislocation. IMPRESSION: No acute fracture or dislocation. Old fracture deformities of the obturator rings bilaterally. Dictated on workstation # [id number] Dict: 01/30/21 1403 Trans: 01/30/21 [facility] [id number] Interpreted by: REMBERTO UPTON MD Electronically signed by: Diagonsvishal Imaging: Xray Plain Films/CT/US/NM/MRI: other Comments [facility] [place] [place] NAME: SUDARSHAN [facility] REC#: [id number] PT STATUS: REG ER : 1935 PHYSICIAN: KRISS SAGASTUME MD ADMIT DATE: 01/30/21/ER Draft Date of Exam:01/30/21 SACRUM AND COCCYX EXAM: SACRUM AND COCCYX INDICATION: Fall. COMPARISON: CT abdomen pelvis without contrast 12/02/2018. FINDINGS: Chronic fracture deformities of the superior and inferior pubic rami appear similar to the prior CT allowing for differences in technique. No acute fractures are identified. The sacrum is obscured by overlying tissues in the AP radiograph. No fractures identified on the lateral. IMPRESSION: No acute radiographic findings in the sacrum or coccyx. Dictated on workstation # [id number] Dict: 01/30/21 1403 Trans: 01/30/21 143[facility] [id number] Interpreted by: GUS BARGER MD Electronically signed by: Departure Impression Primary Impression: Headache due to injury of head and neck Additional Impressions: Uncontrolled hypertension Sacral back pain Disposition: 01 HOME, SELF-CARE Condition: Improved Departure-Patient Inst. Decision time for Depature: 15:03 Referrals: DEEPA HOLLIDAY DO (PCP/Family) Primary Care Physician Patient Instructions: Headache, Adult, High Blood Pressure (DC), Coccyx Injury (DC) Add. Discharge Instructions: All discharge instructions reviewed with patient and/or family. Voiced understanding. Take medications as directed. You may take Tylenol/acetaminophen 650 mg every 6 hours as needed for pain. Drink plenty of fluids. Follow-up with your doctor in a few days for recheck. Return for worse pain, weakness, vomiting, chest pain, breathing problems or other concerns as needed. Scripts Amlodipine Besylate (Amlodipine Besylate) 5 Mg Tablet 5 MG PO DAILY for 30 Days, #30 TAB 0 Refills Prov: KRISS SAGASTUME MD 01/30/21 Copy Copies To 1: DEEPA HOLLIDAY TIMOTHY D MD Jan 30, 2021 13:11
[2021-01-30 13:19] LABS: BASOPHILS % (AUTO) 0 % (0-10); EOSINOPHILS # (AUTO) 0.1 10^3/uL (0.0-0.3); EOSINOPHILS % (AUTO) 1 % (0-10); HEMATOCRIT 40 % (35-52); HEMOGLOBIN 12.5 g/dL (11.5-16.0); LYMPHOCYTES # (AUTO) 1.6 10^3/uL (1.0-4.0); LYMPHOCYTES % (AUTO) 19 % (12-44); MEAN CORPUSCULAR HEMOGLOBIN 29 pg (25-34); MEAN CORPUSCULAR HGB CONC 31 g/dL (32-36); MEAN CORPUSCULAR VOLUME 92 fL (80-99); MEAN PLATELET VOLUME 8.7 fL (9.0-12.2); MONOCYTES # (AUTO) 0.5 10^3/uL (0.0-1.0); MONOCYTES % (AUTO) 6 % (0-12); NEUTROPHILS # (AUTO) 6.2 10^3/uL (1.8-7.8); NEUTROPHILS % (AUTO) 74 % (42-75); PLATELET COUNT 157 10^3/uL (130-400); WHITE BLOOD COUNT 8.4 10^3/uL (4.3-11.0)
[2021-01-30 13:39] LABS: ALBUMIN 3.7 GM/DL (3.2-4.5)
[2021-01-30 13:40] LABS: CHLORIDE 101 MMOL/L (98-107); POTASSIUM 4.2 MMOL/L (3.6-5.0); SODIUM 136 MMOL/L (135-145)
--- NOTE | 2021-01-30 13:40 | Diagnostic Imaging Report ---
PROCEDURE: CT head without contrast. TECHNIQUE: Multiple contiguous axial images were obtained through the brain without the use of intravenous contrast. Auto Exposure Controls were utilized during the CT exam to meet ALARA standards for radiation dose reduction. INDICATION: Fall with headache and hypertension FINDINGS: There is prominence of the ventricles and sulci. There is no hydrocephalus or cerebral edema. There is no midline shift or mass-effect. There is no intracranial mass, hemorrhage, or extra-axial fluid collection. There is some diffuse decreased attenuation of the periventricular white matter which is nonspecific. The visualized paranasal sinuses and mastoid air cells are clear. There are no regional areas of decreased attenuation appreciated to suggest an acute CVA. IMPRESSION: 1. No acute intracranial process. 2. Age-appropriate atrophy. 3. Decreased attenuation of the periventricular white matter which is nonspecific, however, likely reflects senescent change and/or chronic small vessel ischemic disease. Dictated by: Dictated on workstation # [id number]
[2021-01-30 13:42] LABS: GLUCOSE 158 MG/DL (70-105); TOTAL PROTEIN 6.8 GM/DL (6.4-8.2)
[2021-01-30 13:43] LABS: CARBON DIOXIDE 22 MMOL/L (21-32)
[2021-01-30 13:44] LABS: BILIRUBIN,TOTAL 0.6 MG/DL (0.1-1.0)
[2021-01-30 13:46] LABS: ALKALINE PHOSPHATASE 57 U/L (40-136); GFR ESTIMATED 53
[2021-01-30 13:47] LABS: BUN/CREATININE RATIO 25
[2021-01-30 13:49] LABS: ALANINE AMINOTRANSFERASE 27 U/L (0-55)
--- NOTE | 2021-01-30 14:31 | Diagnostic Imaging Report ---
INDICATION: Fall with pain. FINDINGS: There are chronic-appearing fracture deformities of the obturator rings bilaterally. Proximal femurs are intact. No acute fracture or dislocation. IMPRESSION: No acute fracture or dislocation. Old fracture deformities of the obturator rings bilaterally. Dictated by: Dictated on workstation # [id number]
--- NOTE | 2021-01-30 14:33 | Diagnostic Imaging Report ---
EXAM: SACRUM AND COCCYX INDICATION: Fall. COMPARISON: CT abdomen pelvis without contrast 12/02/2018. FINDINGS: Chronic fracture deformities of the superior and inferior pubic rami appear similar to the prior CT allowing for differences in technique. No acute fractures are identified. The sacrum is obscured by overlying tissues in the AP radiograph. No fractures identified on the lateral. IMPRESSION: No acute radiographic findings in the sacrum or coccyx. Dictated by: Dictated on workstation # [id number]
[2021-01-30] MEDS ORDERED: amLODIPine 5 MG (NORVASC) TAB PO ONE (15:00)
[2021-01-30] MEDS ORDERED: AMLO-250 PO (15:06)
[2021-01-30 15:13] VITALS: BP 158/91
== END 2021-01-30 15:13 | disposition home or self-care (01) ==
LOC: EDUNIT# 12:15 → ER 12:19
DX: R51.9 Headache, unspecified (principal); I10 Essential (primary) hypertension; M53.3 Sacrococcygeal disorders, not elsewhere classified; Z88.8 Allergy status to other drugs, medicaments and biological substances; Z83.3 Family history of diabetes mellitus
CPT/HCPCS: 36415; 70450; 72170; 72220; 80053; 84484; 85025; 93005

== ENCOUNTER → 2021-03-15 | Outpatient (CLI) | payer MEDICARE, OTHER, MEDICAID ==
[~2021-03-15] MED LIST changes: +AMLO-250 PO
--- NOTE | 2021-03-15 11:35 | Diagnostic Imaging Report ---
INDICATION: PAIN IN THORACIC SPINE. TECHNIQUE: AP, Lateral and Swimmers imaging of the thoracic spine CORRELATION STUDY: 06/24/2019 FINDINGS: Unchanged mild accentuated thoracic kyphosis is noted. The thoracic vertebral body heights overall appear to be stable without adverse interval change. No new compression deformity. Multilevel degenerative changes of the disc space narrowing and plate osteophyte formation. Also minimal leftward curvature of the lower thoracic spine. IMPRESSION: Mild multilevel degenerative changes of the thoracic spine. Thoracic vertebral body heights overall appear unchanged. No acute appearing compression deformity. Dictated by: Dictated on workstation # [id number]
== END ==
LOC: RAD 10:40
PROVIDERS: ATTEND Internal Medicine
DX: M47.814 Spondylosis without myelopathy or radiculopathy, thoracic region (principal)
CPT/HCPCS: 72072

== ENCOUNTER → 2021-05-19 | Outpatient (CLI) | payer MEDICARE, OTHER, MEDICAID ==
--- NOTE | 2021-05-19 13:11 | Diagnostic Imaging Report ---
INDICATION: Basal cell carcinoma with thoracic pain. AP and lateral views of the thoracic spine are obtained. Comparison is made to study of 03/15/2021. Thoracic vertebral body heights are maintained. There is mild lower thoracic disc space narrowing and endplate spurring however no acute fracture or subluxations identified. There is no evidence of paraspinous hematoma. IMPRESSION: Stable mild thoracic spondylosis without acute abnormality detected. Dictated by: Dictated on workstation # [id number]
--- NOTE | 2021-05-19 13:12 | Diagnostic Imaging Report ---
Indication: Basal cell carcinoma and low back pain AP, oblique and lateral views of the lumbar spine are obtained with comparison made to study of 06/24/2019. Lumbar spinal curvature and alignment are stable and unremarkable. There is unchanged narrowing of the T11-T12 disc space with slight anterior wedging of T12 vertebral body. No acute fracture or malalignment is identified. IMPRESSION: Degenerative findings most pronounced in the lower thoracic region without evidence of acute lumbar spinal abnormality. Dictated by: Dictated on workstation # [id number]
== END ==
LOC: RAD 11:34
PROVIDERS: ATTEND Internal Medicine
DX: C44.310 Basal cell carcinoma of skin of unspecified parts of face (principal); M47.814 Spondylosis without myelopathy or radiculopathy, thoracic region
CPT/HCPCS: 72072; 72110

== ENCOUNTER → 2021-05-30 | Outpatient (CLI) | payer MEDICARE, OTHER, MEDICAID ==
--- NOTE | 2021-05-30 10:49 | Diagnostic Imaging Report ---
CLINICAL INDICATION: Patient has mid to lower spine pain. EXAM: MRI of the thoracic spine performed without IV contrast. Sequences include sagittal T2, sagittal T1, sagittal T2 fat-sat, and axial T2. COMPARISON: CT scan of the thoracic spine and lumbar spine without contrast dated 12/02/2018. X-ray of the thoracic spine dated 03/15/2021. FINDINGS: There is high T2/low T1 signal hypertrophic bony changes involving the medial aspect of the right T9 rib which may represent an acute or subacute fracture. Axial T2 sequence shows that there may be some callous or periosteal reaction in the region. This is best seen on the axial T2 sequence series 6, image 30. There is stable bony thickening involving the medial aspect of the right T10 rib with no abnormal signal consistent with old healed fracture changes seen on comparison CT scan. There are no other areas of abnormal bony marrow edema. There is a chronic anterior wedge fracture deformity involving the T1 vertebra. There is mild compression deformity with Schmorl's nodes involving the T9 and T12 vertebra. There is no retropulsed component. There are degenerative spurs involving the thoracic spine. There is facet arthropathy. There is minimal encroachment upon the central canal at the T11-T12 level due to facet arthropathy. Thoracic spine shows no significant central canal narrowing. There is at least moderate bilateral T10-T11 neural foramen narrowing from facet arthropathy. There is mcrr-[id number]-[id number] bilateral T9-T10 neural foramen narrowing. Thoracic spinal cord shows no abnormal signal and normal cord caliber. IMPRESSION: 1: There is concern for a subacute fracture involving the medial aspect of the right T9 rib. 2: There is no other acute fracture or dislocation seen. 3: There are mild chronic compression deformities involving the T9 and T12 vertebra and chronic anterior wedge compression deformity of the T1 vertebra. 4: There is multilevel thoracic spine degenerative disease with no significant central canal narrowing. There is moderate bilateral neural foramen narrowing at the T10-T11 level and [id number]-kr-[id number] bilateral neural foramen narrowing at the T9-T10 level due to facet arthropathy. Dictated by: Dictated on workstation # [id number]
== END ==
LOC: RAD 09:20
PROVIDERS: ATTEND Internal Medicine
DX: M47.814 Spondylosis without myelopathy or radiculopathy, thoracic region (principal); M43.8X4 Other specified deforming dorsopathies, thoracic region; M48.04 Spinal stenosis, thoracic region
CPT/HCPCS: 72146

== ENCOUNTER 2021-10-06 17:56 | Emergency (ER) | payer MEDICARE, OTHER, MEDICAID ==
[~2021-10-06] VITALS: Ht 165.1 cm; Wt 48.5 kg
[~2021-10-06 17:56] MED LIST changes: -CITA10TA7; +CITA10TA9
--- NOTE | 2021-10-06 18:33 | ED Fall/Injury ---
General Chief Complaint: Trauma-Non Activation Stated Complaint: FALL/HEAD INJURY Source: patient, caregiver Exam Limitations: other (baseline dementia) (AMRIK HAYES STUDENT) History of Present Illness Date Seen by Provider: Oct 06, 2021 Time Seen by Provider: 18:15 Initial Comments This is an 85 YO female presenting to the ED with caregiver s/p unwitnessed fall just [employer]. History somewhat limited by pt's baseline dementia, but she says that she tripped over her dog's bed and fell forward, hitting her head. She notes a bump on her forehead, but denies any other injury or loss of consciousness. Pt was able to ambulate immediately afterwards. Caregiver does not think pt is taking a blood thinner and prior records do not list a blood thinner in pt's medication list. Occurred: just prior to arrival Injuries/Pain Location: head Loss of Consciousness: no loss of consciousness Associated Symptoms (Fall): No Abdominal Pain, No Chest Pain (AMRIK HAYES) Allergies and Home Medications Allergies Coded Allergies: quetiapine (Verified Adverse Reaction, Unknown, 12/02/18) confusion Patient Home Medication List Home Medication List Reviewed: Yes (AMRIK HAYES) Home Medication List Reviewed: Yes (BASSAM MARTINEZ MD) Amlodipine Besylate (Amlodipine Besylate) 5 Mg Tablet, 5 MG PO DAILY Prescribed by: KRISS SAGASTUME on 01/30/21 1506 Citalopram Hydrobromide (Citalopram HBr) 10 Mg Tablet, (Reported) Entered as Reported by: BIA GARCIA on 01/26/21 1309 Polymyxin B Sulf/Trimethoprim (Polymyxin B-Tmp Eye Drops) 10 Ml Drops, (Reported) Entered as Reported by: BIA GARCIA on 01/26/21 1309 Review of Systems Review of Systems Constitutional: No chills, No fever Eyes: Denies Blurred Vision, Denies Decreased Acuity; Other (pt has baseline horizontal nystagmus that daughter says over the phone is normal for her) Ears, Nose, Mouth, Throat: denies epistaxis, denies mouth pain Respiratory: No cough, No short of breath Cardiovascular: No chest pain, No palpitations Gastrointestinal: No abdominal pain, No nausea, No vomiting Genitourinary: no symptoms reported Musculoskeletal: No back pain, No neck pain Skin: no symptoms reported Psychiatric/Neurological: No Symptoms Reported; Denies Headache, Denies Numbness (AMRIK HAYES MED STUDENT) All Other Systems Reviewed Negative Unless Noted: Yes (Negative excepted noted.) (AMRIK HAYES MED STUDENT) Past Jyogkuh-Jgrgbr-Cvdyfk Hx Immunizations Up To Date Tetanus Booster (TDap): Unknown PED Vaccines UTD: No (AMRIK HAYES STUDENT) Seasonal Allergies Seasonal Allergies: No (AMRIK HAYES STUDENT) Past Medical History Surgeries: No Respiratory: No Currently Using CPAP: No Currently Using BIPAP: No Cardiac: Yes (SEES DR. MOTTA UNSURE WHY) Hypertension Neurological: Yes Dementia Reproductive Disorders: No Female Reproductive Disorders: Denies Sexually Transmitted Disease: No HIV/AIDS: No Genitourinary: Yes UTI-Chronic Gastrointestinal: No Musculoskeletal: Yes Fractures, Gout Endocrine: Yes Hyperthyroidism HEENT: Yes Cataract Loss of Vision: Denies Hearing Impairment: Hard of Hearing Cancer: No Psychosocial: No Integumentary: No Recent Skin Changes Blood Disorders: No Adverse Reaction/Blood Tranf: No (AMRIK HAYES STUDENT) Family Medical History Dementia G8 SISTER Diabetes mellitus 19 FATHER No Pertinent Family Hx, Diabetes, Psychiatric Problems (AMRIK HAYES STUDENT) Physical Exam Vital Signs Vital Signs - First Documented 10/06/21 10/06/21 18:10 19:32 Temp 36.5 Pulse 83 Resp 20 B/P (MAP) 173/75 (107) Pulse Ox 98 O2 Delivery Room Air (BASSAM MARTINEZ MD) Vital Signs Capillary Refill : (AMRIK HAYES MED STUDENT) Height, Weight, BMI Height: 5'4.00" Weight: 117lbs. 8.0oz. 53.903417dc; 32.00 BMI Method:Stated General Appearance: WD/WN, no apparent distress HEENT: PERRL/EOMI, normal ENT inspection, TMs normal, pharynx normal; No scleral icterus (R), No scleral icterus (L); other (horizontal nystagmus with H test; hematoma to left medial forehead with overlying abrasion and dried blood, but no active bleeding; negative raccoon eyes and Rogers's sign; no hemotympanum or nasoseptal hematoma) Neck: non-tender, supple, normal inspection Cardiovascular: regular rate, rhythm, no edema, no murmur Respiratory: chest non-tender, lungs clear, normal breath sounds, no respiratory distress, no accessory muscle use Peripheral Pulses: 2+ Radial Pulses (R), 2+ Radial Pulses (L) Gastrointestinal: non tender, soft; No distended, No guarding, No rebound; other (no ecchymosis, abrasions, or lacerations) Back: no CVA tenderness, no vertebral tenderness Extremities: non-tender, normal inspection, no pedal edema, no calf tenderness, normal capillary refill, pelvis stable Neurologic/Psychiatric: no motor/sensory deficits, alert, normal mood/affect, other (baseline dementia per caregiver; know month, but not day of the week or president) Skin: normal color, warm/dry (AMRIK HAYES MED STUDENT) Progress/Results/Core Measures Results/Orders My Orders Orders - BASSAM MARTINEZ MD Ct Head/Cervical Spine Wo (10/06/21 18:29) (BASSAM MARTINEZ MD) Vital Signs/I&O 10/06/21 10/06/21 18:10 19:32 Temp 36.5 36.5 Pulse 83 83 Resp 20 20 B/P (MAP) 173/75 (107) 173/75 (107) Pulse Ox 98 98 O2 Delivery Room Air (BASSAM MARTINEZ MD) Progress Progress Note : Time: 19:53 Progress Note 85-year-old female presents to the emergency department today with a chief complaint of head injury. Caregiver reports the patient had a mechanical trip and fall over her dog bed. No loss of consciousness is reported. She suffered a large hematoma to the left frontal scalp. She denies any complaints of pain or injury anywhere else. She reportedly is not on a blood thinner. Denies pain in her upper extremities, chest abdomen pelvis, lower extremities. No recent illness. Physical exam is remarkable for a large left frontal forehead hematoma with abrasion centrally. She is neurologically intact. She does have a history of dementia therefore history is not super reliable from the patient herself. She also has a small hematoma noted to the ring finger on her right hand at the proximal phalanx and overlying the MCP. Good range of motion of all the fingers that hand is also neurovascularly intact. She has pre-existing nystagmus worse to the right with both eyes. She also has a a "lazy" eye on the right with medial gaze preference, this too seems to be pre-existing. Patient denies any double vision today that is new. CT head and cervical spine without contrast are unremarkable for any acute intracranial abnormality or cervical spine fracture. Patient remains awake alert oriented with no specific concerns. Wound is cleansed to the forehead a l ittle Neosporin and a bandage is placed. Recommend close observation for change in neurologic status. Return precautions given. Caregiver at the bedside verbalized understanding, all questions are sought and answered. (BASSAM MARTINEZ MD) Diagnostic Imaging Diagonstic Imaging: CT Comments [facility]. [place], [place] NAME: SUDARSHAN ARAUJO [facility] REC#: [id number] PT STATUS: REG ER : 1935 PHYSICIAN: BASSAM MARTINEZ MD ADMIT DATE: 10/06/21/ER Signed Date of Exam:10/06/21 CT HEAD/CERVICAL SPINE WO PROCEDURE: CT head and CT cervical spine without contrast. TECHNIQUE: Multiple contiguous axial images were obtained through the brain and cervical spine without the use of intravenous contrast. Sagittal and coronal reformations through the cervical spine were then performed. Auto Exposure Controls were utilized during the CT exam to meet ALARA standards for radiation dose reduction. INDICATION: Fall. Head and neck pain. Scalp hematoma. COMPARISON: 01/30/2021. FINDINGS: CT head: No large acute territorial ischemia, mass, or hemorrhage. No midline shift or mass effect. Decreased attenuation is seen in the periventricular and subcortical white matter. The ventricles and cortical sulci are prominent. The basilar cisterns are patent and unremarkable. The calvarium is intact. Hematoma is seen overlying the forehead left of midline. The visualized paranasal sinuses are clear. CT cervical spine: No acute fracture or dislocation is seen in the cervical spine. Chronic height loss is seen in the superior endplate of T1. Generalized osteopenia is noted. No focal osseous lesions. Vertebral body heights are well-maintained. The craniocervical junction is well-maintained. Mild degenerative changes are seen in the cervical spine with disc osteophyte complexes and uncovertebral arthropathy. Soft tissues of the neck are unremarkable. IMPRESSION: 1. No hemorrhage or focal intra-axial mass. No CT evidence of large acute territorial ischemia. 2. No acute fracture or dislocation in the cervical spine. 3. Scalp hematoma overlying the forehead left of midline. No associated calvarial fracture. Dictated by: Dictated on workstation # [id number] Dict: 10/06/211929 Trans: 10/06/211937 CVB [id number] Interpreted by: CYNDY ADLER DO Electronically signed by: CYNDY ADLER DO 10/06/211937 (BASSAM MARTINEZ MD) Departure Impression Primary Impression: Closed head injury Qualified Codes: S09.90XA - Unspecified injury of head, initial encounter Additional Impressions: Forehead contusion Qualified Codes: S00.83XA - Contusion of other part of head, initial encounter Contusion of right hand Qualified Codes: S60.221A - Contusion of right hand, initial encounter Disposition: 01 HOME, SELF-CARE Condition: Stable Departure-Patient Inst. Decision time for Depature: 19:57 (BASSAM MARTINEZ MD) Referrals: DEEPA BRYAN DO (PCP/Family) Primary Care Physician Patient Instructions: Concussion, Adult (DC), Contusion (DC) Add. Discharge Instructions: Ice pack to the right hand and forehead for swelling and bruising. Monitor her for symptoms of change in mental status to include worsening confusion, severe headache and vomiting. Please bring her back to the emergency department if any of these things occur. Follow-up with your primary care physician. Verification and Attestation of Medical Student E/M Service A medical student performed and documented this service in my presence. I reviewed and verified all information documented by the medical student and made modifications to such information, when appropriate. I personally performed the physical exam and medical decision making. Bassam Martinez, Oct 06, 2021,19:59 (BASSAM MARTINEZ MD) AMRIK HAYES MED STUDENT Oct 06, 2021 18:33 BASSAM MARTINEZ MD Oct 06, 2021 19:44
--- NOTE | 2021-10-06 19:35 | Diagnostic Imaging Report ---
PROCEDURE: CT head and CT cervical spine without contrast. TECHNIQUE: Multiple contiguous axial images were obtained through the brain and cervical spine without the use of intravenous contrast. Sagittal and coronal reformations through the cervical spine were then performed. Auto Exposure Controls were utilized during the CT exam to meet ALARA standards for radiation dose reduction. INDICATION: Fall. Head and neck pain. Scalp hematoma. COMPARISON: 01/30/2021. FINDINGS: CT head: No large acute territorial ischemia, mass, or hemorrhage. No midline shift or mass effect. Decreased attenuation is seen in the periventricular and subcortical white matter. The ventricles and cortical sulci are prominent. The basilar cisterns are patent and unremarkable. The calvarium is intact. Hematoma is seen overlying the forehead left of midline. The visualized paranasal sinuses are clear. CT cervical spine: No acute fracture or dislocation is seen in the cervical spine. Chronic height loss is seen in the superior endplate of T1. Generalized osteopenia is noted. No focal osseous lesions. Vertebral body heights are well-maintained. The craniocervical junction is well-maintained. Mild degenerative changes are seen in the cervical spine with disc osteophyte complexes and uncovertebral arthropathy. Soft tissues of the neck are unremarkable. IMPRESSION: 1. No hemorrhage or focal intra-axial mass. No CT evidence of large acute territorial ischemia. 2. No acute fracture or dislocation in the cervical spine. 3. Scalp hematoma overlying the forehead left of midline. No associated calvarial fracture. Dictated by: Dictated on workstation # [id number]
[2021-10-06 20:17] VITALS: BP 198/93
== END 2021-10-06 20:19 | disposition home or self-care (01) ==
LOC: EDUNIT# 17:56 → ER 18:00
DX: S00.83XA Contusion of other part of head, initial encounter (principal); S60.221A Contusion of right hand, initial encounter; S09.90XA Unspecified injury of head, initial encounter; I10 Essential (primary) hypertension; F03.90 Unspecified dementia, unspecified severity, without behavioral disturbance, psychotic disturbance, mood disturbance, and anxiety; W01.198A Fall on same level from slipping, tripping and stumbling with subsequent striking against other object, initial encounter
CPT/HCPCS: 70450; 72125

== ENCOUNTER 2021-12-31 10:22 | Emergency (ER) | payer MEDICARE, OTHER, MEDICAID ==
[~2021-12-31] VITALS: Ht 162.5 cm; Wt 49.8 kg
[2021-12-31 10:49] LABS: BASOPHILS % (AUTO) 0 % (0-10); EOSINOPHILS % (AUTO) 0 % (0-10); HEMATOCRIT 37 % (35-52); HEMOGLOBIN 12.2 g/dL (11.5-16.0); LYMPHOCYTES # (AUTO) 3.1 10^3/uL (1.0-4.0); LYMPHOCYTES % (AUTO) 40 % (12-44); MEAN CORPUSCULAR HEMOGLOBIN 30 pg (25-34); MEAN CORPUSCULAR HGB CONC 33 g/dL (32-36); MEAN CORPUSCULAR VOLUME 89 fL (80-99); MEAN PLATELET VOLUME 9.5 fL (9.0-12.2); MONOCYTES % (AUTO) 12 % (0-12); NEUTROPHILS # (AUTO) 3.6 10^3/uL (1.8-7.8); NEUTROPHILS % (AUTO) 47 % (42-75); PLATELET COUNT 125 10^3/uL (130-400); WHITE BLOOD COUNT 7.7 10^3/uL (4.3-11.0)
--- NOTE | 2021-12-31 10:57 | ED Fall/Injury ---
General Chief Complaint: Trauma-Non Activation Stated Complaint: FELL Nursing Triage Note: PT TO RM 7 BY WHEELCHAIR WITH COMPLAINT OF MULTIPLE FALLS. STATES SHE FELL LAST NIGHT AND HIT HEAD. WAS STARTED ON MEDICINE FOR SHINGLES 3 DAYS AGO. Source: patient, family, old records Exam Limitations: no limitations History of Present Illness Date Seen by Provider: Dec 31, 2021 Time Seen by Provider: 10:31 Initial Comments This 86-year-old woman presents to the emergency room by private vehicle accompanied by family with concerns about a fall last night in which she struck her head on the living room floor (hard surface). She had no loss of consciousness. She does have a contusion or hematoma on the right occiput. She also has shingles encompassing the left neck, shoulder, and chest for which she has been on treatment for 3 or 4 days. She denies any pain at this time. She does feel a bit weak and has not been up to walk yet today. She is alert and conversational but a little bit of a confused historian. She was able to transition from wheelchair to bed with a little bit of assistance. Allergies and Home Medications Allergies Coded Allergies: quetiapine (Verified Adverse Reaction, Unknown, 12/02/18) confusion Patient Home Medication List Home Medication List Reviewed: Yes Amlodipine Besylate (Amlodipine Besylate) 5 Mg Tablet, 5 MG PO DAILY Prescribed by: KRISS SAGASTUME on 01/30/21 1506 Citalopram Hydrobromide (Citalopram HBr) 10 Mg Tablet, (Reported) Entered as Reported by: BIA GARCIA on 01/26/21 1309 Polymyxin B Sulf/Trimethoprim (Polymyxin B-Tmp Eye Drops) 10 Ml Drops, (Reported) Entered as Reported by: BIA GARCIA on 01/26/21 1309 Review of Systems Review of Systems Constitutional: no symptoms reported Eyes: No Symptoms Reported Ears, Nose, Mouth, Throat: no symptoms reported Respiratory: no symptoms reported Cardiovascular: no symptoms reported Gastrointestinal: no symptoms reported Genitourinary: no symptoms reported : No Musculoskeletal: see HPI Skin: see HPI Psychiatric/Neurological: See HPI Past Dtsdigr-Pdibci-Uyohdu Hx Patient Social History Tobacco Use?: No Use of E-Cig and/or Vaping dev: No Substance use?: No Alcohol Use?: No Pt feels they are or have been: No Immunizations Up To Date Tetanus Booster (TDap): Unknown PED Vaccines UTD: No First/Initial COVID19 Vaccinat: YES Second COVID19 Vaccination Theo: YES Third COVID19 Vaccination Date: YES Seasonal Allergies Seasonal Allergies: No Past Medical History Surgeries: No Respiratory: No Currently Using CPAP: No Currently Using BIPAP: No Cardiac: Yes (SEES DR. MOTTA UNSURE WHY) Hypertension Neurological: Yes Dementia Reproductive Disorders: No Female Reproductive Disorders: Denies Sexually Transmitted Disease: No HIV/AIDS: No Genitourinary: Yes UTI-Chronic Gastrointestinal: No Musculoskeletal: Yes Fractures, Gout Endocrine: Yes Hyperthyroidism HEENT: Yes Cataract Loss of Vision: Denies Hearing Impairment: Hard of Hearing Cancer: No Psychosocial: No Integumentary: No Recent Skin Changes Blood Disorders: No Adverse Reaction/Blood Tranf: No Family Medical History Dementia G8 SISTER Diabetes mellitus 19 FATHER No Pertinent Family Hx, Diabetes, Psychiatric Problems Physical Exam Vital Signs Vital Signs - First Documented 12/31/21 10:28 Temp 36.4 Pulse 84 Resp 16 B/P (MAP) 177/87 (117) Pulse Ox 96 O2 Delivery Room Air Capillary Refill : Less Than 3 Seconds Height, Weight, BMI Height: 5'4.00" Weight: 117lbs. 8.0oz. [id number]; 18.00 BMI Method:Stated General Appearance: WD/WN, no apparent distress, thin HEENT: PERRL/EOMI, normal ENT inspection, other (Mucous membranes moist) Neck: non-tender, normal inspection Cardiovascular: regular rate, rhythm, no edema, no murmur Respiratory: lungs clear, normal breath sounds, no respiratory distress Gastrointestinal: normal bowel sounds, non tender, soft Extremities: non-tender, normal inspection, no pedal edema, other (No pain with range of motion, rotation of the hips, or palpation of the hips) Neurologic/Psychiatric: eap counselor II-XII nml as tested, no motor/sensory deficits, alert, normal mood/affect, other (Confused historian) Skin: normal color, warm/dry, ecchymosis, other (Swelling and contusion on the right posterior occipitoparietal scalp) Elda Coma Score Best Eye Response: (4) Open Spontaneously Best Verbal Response: (5) Oriented Best Motor Response: (6) Obeys Commands Elda Total: 15 Progress/Results/Core Measures Results/Orders Lab Results Laboratory Tests Test 12/31/21 10:46 12/31/21 12:12 Range/Units White Blood Count 7.7 4.3-11.0 10^3/uL Red Blood Count 4.14 3.80-5.11 10^6/uL Hemoglobin 12.2 11.5-16.0 g/dL Hematocrit 37 35-52 % Mean Corpuscular Volume 89 80-99 fL Mean Corpuscular Hemoglobin 30 25-34 pg Mean Corpuscular Hemoglobin Concent 33 32-36 g/dL Red Cell Distribution Width 14.0 10.0-14.5 % Platelet Count 125 L 130-400 10^3/uL Mean Platelet Volume 9.5 9.0-12.2 fL Immature Granulocyte % (Auto) 0 % Neutrophils (%) (Auto) 47 42-75 % Lymphocytes (%) (Auto) 40 12-44 % Monocytes (%) (Auto) 12 0-12 % Eosinophils (%) (Auto) 0 0-10 % Basophils (%) (Auto) 0 0-10 % Neutrophils # (Auto) 3.6 1.8-7.8 10^3/uL Lymphocytes # (Auto) 3.1 1.0-4.0 10^3/uL Monocytes # (Auto) 1.0 0.0-1.0 10^3/uL Eosinophils # (Auto) 0.0 0.0-0.3 10^3/uL Basophils # (Auto) 0.0 0.0-0.1 10^3/uL Immature Granulocyte # (Auto) 0.0 0.0-0.1 10^3/uL Sodium Level 138 135-145 MMOL/L Potassium Level 4.0 3.6-5.0 MMOL/L Chloride Level 104 98-107 MMOL/L Carbon Dioxide Level 22 21-32 MMOL/L Anion Gap 12 5-14 MMOL/L Blood Urea Nitrogen 27 H 7-18 MG/DL Creatinine 1.04 0.60-1.30 MG/DL Estimat Glomerular Filtration Rate 52 BUN/Creatinine Ratio 26 Glucose Level 94 70-105 MG/DL Calcium Level 9.6 8.5-10.1 MG/DL Corrected Calcium 9.8 8.5-10.1 MG/DL Magnesium Level 1.5 L 1.6-2.4 MG/DL Total Bilirubin 0.7 0.1-1.0 MG/DL Aspartate Amino Transf (AST/SGOT) 34 5-34 U/L Alanine Aminotransferase (ALT/SGPT) 24 0-55 U/L Alkaline Phosphatase 51 40-136 U/L Total Protein 6.8 6.4-8.2 GM/DL Albumin 3.7 3.2-4.5 GM/DL Urine Color YELLOW Urine Clarity SL CLOUDY Urine pH 7.0 5-9 Urine Specific Rhodell 1.015 L 1.016-1.022 Urine Protein NEGATIVE NEGATIVE Urine Glucose (UA) NEGATIVE NEGATIVE Urine Ketones NEGATIVE NEGATIVE Urine Nitrite NEGATIVE NEGATIVE Urine Bilirubin NEGATIVE NEGATIVE Urine Urobilinogen 0.2 < = 1.0 MG/DL Urine Leukocyte Esterase NEGATIVE NEGATIVE Urine RBC (Auto) TRACE-I H NEGATIVE Urine RBC RARE /HPF Urine WBC 0-2 /HPF Urine Squamous Epithelial Cells NONE /HPF Urine Crystals NONE /LPF Urine Bacteria NEGATIVE /HPF Urine Casts NONE /LPF Urine Mucus NEGATIVE /LPF Urine Culture Indicated NO My Orders Orders - HARMAN LUCAS MD Ct Head/Cervical Spine Wo (12/31/21 10:38) Cbc With Automated Diff (12/31/21 10:38) Comprehensive Metabolic Panel (12/31/21 10:38) Magnesium (12/31/21 10:38) Ua Culture If Indicated (12/31/21 10:38) Ed Iv/Invasive Line Start (12/31/21 10:38) Vital Signs/I&O 12/31/21 10:28 Temp 36.4 Pulse 84 Resp 16 B/P (MAP) 177/87 (117) Pulse Ox 96 O2 Delivery Room Air Blood Pressure Mean: 117 Progress Progress Note #1: Time: 11:00 Progress Note Patient seen and examined. Labs and CT pending. Disposition will be determined after labs and CT are reviewed. Progress Note #2: Time: 13:05 Progress Note Work-up was relatively unremarkable. CT demonstrated no evidence of serious injury. Patient demonstrated ability to ambulate with minimal assistance. Both patient and her son feel comfortable returning home at this point. Her son is often at home with her and they have college students who are helpers in the home as well. She was encouraged to use her walker or assistance from other individuals at all times. She currently has medication for her shingles which she was encouraged to complete. Her son inquired about treatment for tremors. I prefer that she discuss medication options with her primary care provider during a visit and a medication review. I did recommend physical therapy for strength and balance training. They were given the contact information for the therapy department and a flyer. Diagnostic Imaging Diagonstic Imaging: CT Plain Films/CT/US/NM/MRI: c-spine, head Comments CT head and cervical spine viewed by me and report reviewed. See report below: NAME: SUDARSHAN ARAUJO [facility] REC#: [id number] PT STATUS: REG ER : 1935 PHYSICIAN: HARMAN LUCAS MD ADMIT DATE: 12/31/21/ER Draft Date of Exam:12/31/21 CT HEAD/CERVICAL SPINE WO PROCEDURE: CT head and CT cervical spine without contrast. TECHNIQUE: Multiple contiguous axial images were obtained through the brain and cervical spine without the use of intravenous contrast. Sagittal and coronal reformations through the cervical spine were then performed. Auto Exposure Controls were utilized during the CT exam to meet ALARA standards for radiation dose reduction. INDICATION: Fall. CORRELATION is made with prior CT from 10/06/2021. CT HEAD: The ventricles and sulci are consistent with the patient's age. There is periventricular low-attenuation consistent with chronic microvascular ischemia. 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 No sulcal effacement or midline shift is identified. No acute intra-axial or extra-axial hemorrhage is detected. Cisterns are patent. The visualized paranasal sinuses are clear. IMPRESSION: 1. Stable chronic changes. No acute intracranial process is detected. CT CERVICAL SPINE: Curvature of the cervical spine is normal. There is minimal anterolisthesis of C3 on C4 and C4 on C5 with minimal retrolisthesis of C5 on C6. There is multilevel degenerative disc disease with variable disc space narrowing and marginal spurring. No fractures are seen. The prevertebral tissues are within normal limits. Odontoid appears intact. IMPRESSION: 1. Cervical spondylosis and listheses. No acute bony abnormality is detected. Dictated on workstation # [id number] Dict: 12/31/21 1136 Trans: 12/31/21 1146 [facility] [id number] Interpreted by: LYNNE CARBAJAL MD Departure Impression Primary Impression: Fall on same level Qualified Codes: W18.30XA - Fall on same level, unspecified, initial encounter Additional Impressions: Generalized weakness Scalp contusion Qualified Codes: S00.03XA - Contusion of scalp, initial encounter Shingles rash Qualified Codes: B02.9 - Zoster without complications Tremor Disposition: 01 HOME, SELF-CARE Condition: Stable Departure-Patient Inst. Referrals: DEEPA BRYAN DO (PCP/Family) Primary Care Physician Patient Instructions: Preventing Falls in Older Adults, Shingles Add. Discharge Instructions: Always walk with your walker, preferably with assistance. Drink plenty of clear liquids to stay well-hydrated. Follow-up with your primary care provider soon as possible. Discuss strategy for improving strength and balance, possibly through physical therapy. You can call the [facility] at [phone] to schedule an evaluation. Try to eat a well-balanced diet with nutritional supplements such as Ensure. Finish your medicine for your shingles rash. Call with questions or concerns. Return to the ER if you have worsening symptoms. All discharge instructions reviewed with patient and/or family. Voiced understanding. Copy Copies To 1: DEEPA BRYAN JOSHUA T MD Dec 31, 2021 10:57
[2021-12-31 11:00] LABS: ALBUMIN 3.7 GM/DL (3.2-4.5)
[2021-12-31 11:01] LABS: CALCIUM 9.6 MG/DL (8.5-10.1)
[2021-12-31 11:02] LABS: TOTAL PROTEIN 6.8 GM/DL (6.4-8.2)
[2021-12-31 11:04] LABS: BILIRUBIN,TOTAL 0.7 MG/DL (0.1-1.0)
[2021-12-31 11:06] LABS: CREATININE SERUM 1.04 MG/DL (0.60-1.30)
[2021-12-31 11:08] LABS: MAGNESIUM 1.5 MG/DL (1.6-2.4)
--- NOTE | 2021-12-31 11:48 | Diagnostic Imaging Report ---
PROCEDURE: CT head and CT cervical spine without contrast. TECHNIQUE: Multiple contiguous axial images were obtained through the brain and cervical spine without the use of intravenous contrast. Sagittal and coronal reformations through the cervical spine were then performed. Auto Exposure Controls were utilized during the CT exam to meet ALARA standards for radiation dose reduction. INDICATION: Fall. CORRELATION is made with prior CT from 10/06/2021. CT HEAD: The ventricles and sulci are consistent with the patient's age. There is periventricular low-attenuation consistent with chronic microvascular ischemia. 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 No sulcal effacement or midline shift is identified. No acute intra-axial or extra-axial hemorrhage is detected. Cisterns are patent. The visualized paranasal sinuses are clear. IMPRESSION: 1. Stable chronic changes. No acute intracranial process is detected. CT CERVICAL SPINE: Curvature of the cervical spine is normal. There is minimal anterolisthesis of C3 on C4 and C4 on C5 with minimal retrolisthesis of C5 on C6. There is multilevel degenerative disc disease with variable disc space narrowing and marginal spurring. No fractures are seen. The prevertebral tissues are within normal limits. Odontoid appears intact. IMPRESSION: 1. Cervical spondylosis and listheses. No acute bony abnormality is detected. Dictated by: Dictated on workstation # [id number]
[2021-12-31 12:15] LABS: BILIRUBIN,URINE NEGATIVE (NEGATIVE); CLARITY,URINE SL CLOUDY; COLOR,URINE YELLOW; GLUCOSE, URINE (UA) NEGATIVE (NEGATIVE); KETONES,URINE NEGATIVE (NEGATIVE); LEUKOCYTE ESTERASE ,URINE NEGATIVE (NEGATIVE); NITRITE,URINE NEGATIVE (NEGATIVE); PROTEIN,URINE NEGATIVE (NEGATIVE)
[2021-12-31 12:22] LABS: BACTERIA,URINE NEGATIVE /HPF; RBC,URINE RARE /HPF; WBC,URINE 0-2 /HPF
[2021-12-31 13:26] VITALS: BP 167/84
== END 2021-12-31 13:26 | disposition home or self-care (01) ==
LOC: EDUNIT# 10:22 → ER 10:24
DX: S00.03XA Contusion of scalp, initial encounter (principal); R53.1 Weakness; B02.9 Zoster without complications; R25.1 Tremor, unspecified; R40.2410 Glasgow coma scale score 13-15, unspecified time; W18.30XA Fall on same level, unspecified, initial encounter
CPT/HCPCS: 36415; 70450; 72125; 80053; 81000; 83735; 85025

== ENCOUNTER 2022-02-21 08:51 | Emergency (ER) | payer MEDICARE, OTHER, MEDICAID ==
[~2022-02-21] VITALS: Ht 160 cm; Wt 49.8 kg
--- NOTE | 2022-02-21 09:03 | ED Trauma-Multisystem ---
General Stated Complaint: FALL, L SHOULDER FX Source of Information: EMS Exam Limitations: Physical Impairments History of Present Illness Date Seen by Provider: February 21, 2022 Time Seen by Provider: 08:55 Initial Comments Patient is an 86-year-old female who presents to the emergency department by ambulance today after being found by her son in the bathroom. Patient had an unwitnessed fall in the bathroom. Unknown loss of consciousness. Past medical history includes dementia as well as hypertension. Per review of the medical record she is not on any blood thinners. No recent illnesses are known. Her son is deaf and uses his phone to assist. He states that he thought she had been in the bathroom too long, went in to find her and she had fallen. EMS reported left-sided temporal injury with hematoma. No vomiting. Also obvious deformity of the left shoulder. Patient is normally ambulatory with a walker at home. Daughter is DPOA and lives in [facility] [phone]. At the time of arrival Sonja is a full code. Review of systems unobtainable secondary to her head injured state/dementia Occurred: This Morning Pain/Injury Location: Face, Head, Upper Extremity (left shoulder) Loss of Consciousness: Unsure Allergies and Home Medications Allergies Coded Allergies: quetiapine (Verified Adverse Reaction, Unknown, 12/02/18) confusion Patient Home Medication List Home Medication List Reviewed: Yes Amlodipine Besylate (Amlodipine Besylate) 5 Mg Tablet, 5 MG PO DAILY Prescribed by: KRISS SAGASTUME on 01/30/21 1506 Citalopram Hydrobromide (Citalopram HBr) 10 Mg Tablet, (Reported) Entered as Reported by: BIA GARCIA on 01/26/21 1309 Polymyxin B Sulf/Trimethoprim (Polymyxin B-Tmp Eye Drops) 10 Ml Drops, (Reported) Entered as Reported by: BIA GARCIA on 01/26/21 1309 Review of Systems Review of Systems Constitutional: see HPI Unable to assess patient's review of systems secondary to clinical status, nonverbal/dementia Past Euqeflg-Redpgn-Lomocp Hx Immunizations Up To Date Tetanus Booster (TDap): Unknown PED Vaccines UTD: No First/Initial COVID19 Vaccinat: YES Second COVID19 Vaccination Theo: YES Third COVID19 Vaccination Date: YES Seasonal Allergies Seasonal Allergies: No Past Medical History Surgeries: No Respiratory: No Currently Using CPAP: No Currently Using BIPAP: No Cardiac: Yes (SEES DR. MOTTA UNSURE WHY) Hypertension Neurological: Yes Dementia Reproductive Disorders: No Female Reproductive Disorders: Denies Sexually Transmitted Disease: No HIV/AIDS: No Genitourinary: Yes UTI-Chronic Gastrointestinal: No Musculoskeletal: Yes Fractures, Gout Endocrine: Yes Hyperthyroidism HEENT: Yes Cataract Loss of Vision: Denies Hearing Impairment: Hard of Hearing Cancer: No Psychosocial: No Integumentary: No Recent Skin Changes Blood Disorders: No Adverse Reaction/Blood Tranf: No Family Medical History Dementia G8 SISTER Diabetes mellitus 19 FATHER No Pertinent Family Hx, Diabetes, Psychiatric Problems Physical Exam Vital Signs Vital Signs - First Documented 02/21/22 02/21/22 09:02 13:10 Temp 35.7 Pulse 72 Resp 21 B/P (MAP) 216/101 (139) Pulse Ox 97 O2 Delivery Room Air O2 Flow Rate 2.00 Height, Weight, BMI Height: 5'4.00" Weight: 117lbs. 8.0oz. 53.134529sb; 18.00 BMI Method:Stated General Appearance: Chronically ill, Thin Head: Contusions (left bahai), Lacerations (left eyebrow; ecchymoses left bahai), Other (TM on left dusky blue - unable to visualise right TM); No Rogers's Sign Eyes: Bilateral Eye Normal Inspection, Bilateral Eye PERRL (2-3mm) Ears, Nose, Throat: No Evidence of ENT Injury, No Dental Injury, Hemotympanum (? left (right obscured)) Neck: Normal Inspection, Non Tender Cardiovascular: Regular Rate, Rhythm, Normal Peripheral Pulses Respiratory: Lungs Clear, Normal Breath Sounds, No Accessory Muscle Use, No Res piratory Distress Gastrointestinal: Soft, Tenderness (mild diffuse - non distended. normal BS) Genital/Rectal: Normal Genital Exam Extremity: Normal Capillary Refill, No Pedal Edema, Swelling (left upper arm - with slight hematoma. resists ROM due to pain (and obvious deformity)) Neurologic/Psychiatric: Alert, No Motor/Sensory Deficits, Depressed Affect, Disoriented ((normal - dementia)) Skin: Warm/Dry, Other (1.5cm laceration to left lateral eyebrow; no active bleeding. surrounding hematoma; small puncture wound left lateral anterior shoulder.) [place] Coma Score Best Eye Response ([place]): (4) Open Spontaneously Best Verbal Response ([place]): (4) Confused Conversation Best Motor Response ([place]): (6) Obeys Commands Procedures/Interventions Wound Location: Eye Other Wound Location left eye brow Wound Length (cm): 1.5 Wound's Depth, Shape: superficial, linear Wound Explored: clean Irrigated w/ Saline (ccs): 50 Betadine Prep?: No Anesthesia: 1% Lidocaine Volume Anesthetic (ccs): 2 Suture: Ethlion Suture Size: 5-0 Number of Sutures: 3 Layer Closure?: 1 Sterile Dressing Applied?: No Progress/Results/Core Measures Results/Orders Lab Results Laboratory Tests Test 02/21/22 09:10 Range/Units White Blood Count 9.4 4.3-11.0 10^3/uL Red Blood Count 4.20 3.80-5.11 10^6/uL Hemoglobin 12.4 11.5-16.0 g/dL Hematocrit 38 35-52 % Mean Corpuscular Volume 89 80-99 fL Mean Corpuscular Hemoglobin 30 25-34 pg Mean Corpuscular Hemoglobin Concent 33 32-36 g/dL Red Cell Distribution Width 14.2 10.0-14.5 % Platelet Count 187 130-400 10^3/uL Mean Platelet Volume 9.3 9.0-12.2 fL Immature Granulocyte % (Auto) 0 % Neutrophils (%) (Auto) 54 42-75 % Lymphocytes (%) (Auto) 37 12-44 % Monocytes (%) (Auto) 7 0-12 % Eosinophils (%) (Auto) 1 0-10 % Basophils (%) (Auto) 0 0-10 % Neutrophils # (Auto) 5.1 1.8-7.8 10^3/uL Lymphocytes # (Auto) 3.5 1.0-4.0 10^3/uL Monocytes # (Auto) 0.7 0.0-1.0 10^3/uL Eosinophils # (Auto) 0.1 0.0-0.3 10^3/uL Basophils # (Auto) 0.0 0.0-0.1 10^3/uL Immature Granulocyte # (Auto) 0.0 0.0-0.1 10^3/uL Prothrombin Time 13.3 12.2-14.7 SEC INR Comment 1.0 0.8-1.4 Activated Partial Thromboplast Time 24 24-35 SEC Urine Color YELLOW Urine Clarity CLEAR Urine pH 7.0 5-9 Urine Specific [place] 1.015 L 1.016-1.022 Urine Protein NEGATIVE NEGATIVE Urine Glucose (UA) NEGATIVE NEGATIVE Urine Ketones NEGATIVE NEGATIVE Urine Nitrite NEGATIVE NEGATIVE Urine Bilirubin NEGATIVE NEGATIVE Urine Urobilinogen 0.2 < = 1.0 MG/DL Urine Leukocyte Esterase NEGATIVE NEGATIVE Urine RBC (Auto) NEGATIVE NEGATIVE Urine RBC NONE /HPF Urine WBC 0-2 /HPF Urine Squamous Epithelial Cells RARE /HPF Urine Crystals NONE /LPF Urine Bacteria TRACE /HPF Urine Casts NONE /LPF Urine Mucus NEGATIVE /LPF Urine Culture Indicated NO Sodium Level 140 135-145 MMOL/L Potassium Level 3.9 3.6-5.0 MMOL/L Chloride Level 102 98-107 MMOL/L Carbon Dioxide Level 24 21-32 MMOL/L Anion Gap 14 5-14 MMOL/L Blood Urea Nitrogen 21 H 7-18 MG/DL Creatinine 0.91 0.60-1.30 MG/DL Estimat Glomerular Filtration Rate 61 BUN/Creatinine Ratio 23 Glucose Level 115 H 70-105 MG/DL Calcium Level 9.6 8.5-10.1 MG/DL Corrected Calcium 9.8 8.5-10.1 MG/DL Total Bilirubin 0.7 0.1-1.0 MG/DL Aspartate Amino Transf (AST/SGOT) 29 5-34 U/L Alanine Aminotransferase (ALT/SGPT) 21 0-55 U/L Alkaline Phosphatase 50 40-136 U/L Total Protein 7.0 6.4-8.2 GM/DL Albumin 3.7 3.2-4.5 GM/DL My Orders Orders - BASSAM MARTINEZ MD Ed Iv/Invasive Line Start (02/21/22 08:59) Cbc With Automated Diff (02/21/22 08:59) Comprehensive Metabolic Panel (02/21/22 08:59) Catheter(Urinary) Insert & Ass 03,15 (02/21/22 08:59) Ekg Tracing (02/21/22 08:59) Ct Head/Cervical Spine Wo (02/21/22 08:59) Chest 1 View, Ap/Pa Only (02/21/22 08:59) Shoulder, Left, 2 Views (02/21/22 08:59) Type And Screen (02/21/22 08:59) Protime With Inr (02/21/22 08:59) Partial Thromboplastin Time (02/21/22 08:59) Ua Culture If Indicated (02/21/22 08:59) Cefazolin 2 Gm Iv Premixed (Ancef 2 Gm P (02/21/22 10:00) Fentanyl Inj (Sublimaze Injection) (02/21/22 10:30) Fentanyl Inj (Sublimaze Injection) (02/21/22 10:21) Ns (Ivpb) (Sodium C... W/Nicardipine Iv (02/21/22 11:15) Fentanyl Inj (Sublimaze Injection) (02/21/22 11:45) Medications Given in ED Vital Signs/I&O 02/21/22 02/21/22 02/21/22 02/21/22 09:02 11:40 12:22 13:10 Temp 35.7 36.0 Pulse 72 81 Resp 21 13 B/P (MAP) 216/101 (139) 196/107 142/76 156/97 Pulse Ox 97 97 O2 Delivery Room Air Nasal Cannula O2 Flow Rate 2.00 Progress Progress Note #1: Time: 11:19 Progress Note Discussed with at 1109. Accepted by Dr. Raza Hawthorne. Patient remains quite hypertensive with a diastolic of 111. We will start Cardene drip. Images have been clouded to [facility]. Progress Note #2: Time: 12:42 Progress Note Awaiting Flight to . Will open her eyes to command, will squeeze my hand. Not verbal now - will only shake her head yes and no. VSS. BP 160 systolic on 2.5 of Cardene. She has been given fentanyl for pain. LUE held in position of comfort. GCS was about 14 initially - now down to 11. He eyes are half closed. she will open them to command. Not saying anything now. (I suspect would make sounds if I were to manipulate her left arm). 3 superficial interrupted sutures to left eyebrow with 5-0 ethilon. Long discussion with Emani on the phone regarding her mother's age, injuries and potential for complete recovery. We talked about DNR status and Emani is agreeable to DNR status. She will also communicate this to two other nurses. Initial ECG Impression Date: February 21, 2022 Initial ECG Impression Time: 10:00 Initial ECG Rate: 69 Initial ECG Rhythm: Normal Sinus Initial ECG Intervals ME interval 212 QRS [address]-T wave changes across the precordium, no overt ST segment elevation or depression is noted Diagnostic Imaging Diagonstic Imaging: CT Comments [facility] [place], [place] NAME: SONJA ARAUJO REC#: [id number] PT STATUS: REG ER : 1935 PHYSICIAN: BASSAM MARTINEZ MD ADMIT DATE: 02/21/22/ER Draft Date of Exam:02/21/22 CT HEAD/CERVICAL SPINE WO Indication: Trauma with head and neck pain. TECHNIQUE: Multiple contiguous axial images were obtained through the brain and cervical spine without the use of intravenous contrast. Sagittal and coronal reformations through the cervical spine were then performed. Auto Exposure Controls were utilized during the CT exam to meet ALARA standards for radiation dose reduction. Comparison made with 12/31/2021 There is an acute subdural hematoma over the right frontotemporal convexity, with maximal diameter about 1 cm. There is localized mass effect with mild midline shift. There is about 5 mm of [id number]-px-hqvf midline shift. There are underlying atrophic changes with chronic ischemic changes in the deep white matter. There is no ventricular dilatation. Calvarial windows show no definite fracture. There is high density fluid compatible with blood in the sphenoid sinuses as well as a small amount of air in the cavernous sinuses, raising the possibility of basilar skull fracture. CT cervical spine findings: There is no evidence of cervical spine fracture. There is no subluxation or malalignment. There is diffuse facet degenerative change. There is diffuse disc space narrowing at all levels. IMPRESSION: CT brain demonstrates an acute subdural hematoma along the right frontotemporal convexity, with maximal diameter at 1 cm. This is about 5 mm of vjzqr-kr-tcby midline shift. There is underlying atrophy and chronic change in the deep white matter. There is high density fluid compatible with blood in the sphenoid sinuses as well as some blood in the left maxillary sinus. There is a small amount of intracranial air in the region of the cavernous sinuses. This does raise the possibility of an occult basilar skull fracture. CT cervical spine shows degenerative findings but no acute fracture or subluxation. Dictated on workstation # [id number] Dict: 02/21/22 0938 Trans: 02/21/22 0948 [facility] [id number] Interpreted by: ZAKI ZULETA MD Electronically signed by: Diagonstic Imaging: Xray Comments [facility] [place], [place] NAME: JUANITO ARAUJOSAINT ELIZABETH FORT THOMAS REC#: [id number] PT STATUS: REG ER : 1935 PHYSICIAN: BASSAM MARTINEZ MD ADMIT DATE: 02/21/22/ER Draft Date of Exam:02/21/22 SHOULDER, LEFT, 2 VIEWS HISTORY: Trauma, left humerus injury. TECHNIQUE: Two views of the left shoulder. COMPARISON: None. FINDINGS: Bones appear osteopenic. There is an oblique mildly comminuted fracture of the proximal left humerus diaphysis with lateral displacement and marked medial angulation. There is about 2 cm of overriding. The glenohumeral alignment appears normal. IMPRESSION: Displaced, angulated fracture of the proximal left humerus diaphysis. Dictated on workstation # [id number] Dict: 02/21/22 1005 Trans: 02/21/22 1008 [id number] Interpreted by: ARTUR VILLANUEVA MD Electronically signed by: Pradeepnstic Imaging: Xray Plain Films/CT/US/NM/MRI: chest Comments [facility] [place] [place] NAME: JUANITO ARAUJOSAINT ELIZABETH FORT THOMAS REC#: [id number] PT STATUS: REG ER : 1935 PHYSICIAN: BASSAM MARTINEZ MD ADMIT DATE: 02/21/22/ER Draft Date of Exam:02/21/22 CHEST 1 VIEW, AP/PA ONLY HISTORY: Trauma, fall, chest injury. TECHNIQUE: Frontal view of the chest. COMPARISON: 08/15/2020. FINDINGS: Lung volumes are normal. No consolidation is seen. There is no pleural effusion or pneumothorax. The cardiac silhouette is normal in size. Bones appear osteopenic. There are old right rib deformities. No definite acute fracture is seen. IMPRESSION: 1. No acute pulmonary abnormality. 2. Left humerus fracture is described separately. Dictated on workstation # [id number] Dict: 02/21/22 1003 Trans: 02/21/22 1007 [id number] Interpreted by: ARTUR VILLANUEVA MD Electronically signed by: Critical Care Note Critical Care Start Time: 08:55 Stop Time: 12:00 Total Time (minutes) 1 hour critical care time in the evaluation and management of this 86-year-old with head injury and open fracture to the left shoulder. Time includes initial evaluation and management, management of hypertension with Cardene drip, review and interpretation of labs, x-rays, CTs. Discussion with radiologist, discussion with transferring hospital. Review and interpretation of old records. Multiple discussions with family members. Departure Impression Primary Impression: Subdural hematoma Additional Impressions: Open fracture of left humerus Qualified Codes: S42.292B - Other displaced fracture of upper end of left humerus, initial encounter for open fracture Hypertensive disorder Qualified Codes: I10 - Essential (primary) hypertension Laceration of left eyebrow Qualified Codes: S01.112A - Laceration without foreign body of left eyelid and periocular area, initial encounter Disposition: XF SHT-TRM HOSP Condition: Critical Transfer Transfer Reason: Exceeds level of care Time Spoke to Accepting Phy: 11:09 Transfer Progress Notes Discussed with Transfer Center - accepted per Dr Raza Hawthorne Transfer Facility: [facility] Method of Transfer: Air Departure-Patient Inst. Referrals: DEEPA BRYAN DO (PCP/Family) Primary Care Physician BASSAM MARTINEZ MD February 21, 2022 09:03
[2022-02-21 09:22] LABS: BASOPHILS % (AUTO) 0 % (0-10); EOSINOPHILS # (AUTO) 0.1 10^3/uL (0.0-0.3); EOSINOPHILS % (AUTO) 1 % (0-10); HEMATOCRIT 38 % (35-52); HEMOGLOBIN 12.4 g/dL (11.5-16.0); LYMPHOCYTES # (AUTO) 3.5 10^3/uL (1.0-4.0); LYMPHOCYTES % (AUTO) 37 % (12-44); MEAN CORPUSCULAR HEMOGLOBIN 30 pg (25-34); MEAN CORPUSCULAR HGB CONC 33 g/dL (32-36); MEAN CORPUSCULAR VOLUME 89 fL (80-99); MEAN PLATELET VOLUME 9.3 fL (9.0-12.2); MONOCYTES # (AUTO) 0.7 10^3/uL (0.0-1.0); MONOCYTES % (AUTO) 7 % (0-12); NEUTROPHILS # (AUTO) 5.1 10^3/uL (1.8-7.8); NEUTROPHILS % (AUTO) 54 % (42-75); PLATELET COUNT 187 10^3/uL (130-400); WHITE BLOOD COUNT 9.4 10^3/uL (4.3-11.0)
[2022-02-21 09:24] LABS: BILIRUBIN,URINE NEGATIVE (NEGATIVE); CLARITY,URINE CLEAR; COLOR,URINE YELLOW; GLUCOSE, URINE (UA) NEGATIVE (NEGATIVE); KETONES,URINE NEGATIVE (NEGATIVE); LEUKOCYTE ESTERASE ,URINE NEGATIVE (NEGATIVE); NITRITE,URINE NEGATIVE (NEGATIVE); PROTEIN,URINE NEGATIVE (NEGATIVE)
[2022-02-21 09:38] LABS: BACTERIA,URINE TRACE /HPF; SQUAMOUS EPITHELIAL CELL,UR RARE /HPF; WBC,URINE 0-2 /HPF
[2022-02-21 09:43] LABS: PROTHROMBIN TIME PATIENT 13.3 SEC (12.2-14.7)
--- NOTE | 2022-02-21 09:48 | Diagnostic Imaging Report ---
Indication: Trauma with head and neck pain. TECHNIQUE: Multiple contiguous axial images were obtained through the brain and cervical spine without the use of intravenous contrast. Sagittal and coronal reformations through the cervical spine were then performed. Auto Exposure Controls were utilized during the CT exam to meet ALARA standards for radiation dose reduction. Comparison made with 12/31/2021 There is an acute subdural hematoma over the right frontotemporal convexity, with maximal diameter about 1 cm. There is localized mass effect with mild midline shift. There is about 5 mm of shqfb-ye-ffzu midline shift. There are underlying atrophic changes with chronic ischemic changes in the deep white matter. There is no ventricular dilatation. Calvarial windows show no definite fracture. There is high density fluid compatible with blood in the sphenoid sinuses as well as a small amount of air in the cavernous sinuses, raising the possibility of basilar skull fracture. CT cervical spine findings: There is no evidence of cervical spine fracture. There is no subluxation or malalignment. There is diffuse facet degenerative change. There is diffuse disc space narrowing at all levels. IMPRESSION: CT brain demonstrates an acute subdural hematoma along the right frontotemporal convexity, with maximal diameter at 1 cm. This is about 5 mm of devjh-oo-nfbz midline shift. There is underlying atrophy and chronic change in the deep white matter. There is high density fluid compatible with blood in the sphenoid sinuses as well as some blood in the left maxillary sinus. There is a small amount of intracranial air in the region of the cavernous sinuses. This does raise the possibility of an occult basilar skull fracture. CT cervical spine shows degenerative findings but no acute fracture or subluxation. Dictated by: Dictated on workstation # [id number]
[2022-02-21 09:49] LABS: ALBUMIN 3.7 GM/DL (3.2-4.5); BILIRUBIN,TOTAL 0.7 MG/DL (0.1-1.0); CALCIUM 9.6 MG/DL (8.5-10.1); CREATININE SERUM 0.91 MG/DL (0.60-1.30); POTASSIUM 3.9 MMOL/L (3.6-5.0)
[2022-02-21] MEDS ORDERED: ceFAZolin 2 GM IV Premixed 50 ML IV ONE (10:00)
--- NOTE | 2022-02-21 10:08 | Diagnostic Imaging Report ---
HISTORY: Trauma, fall, chest injury. TECHNIQUE: Frontal view of the chest. COMPARISON: 08/15/2020. FINDINGS: Lung volumes are normal. No consolidation is seen. There is no pleural effusion or pneumothorax. The cardiac silhouette is normal in size. Bones appear osteopenic. There are old right rib deformities. No definite acute fracture is seen. IMPRESSION: 1. No acute pulmonary abnormality. 2. Left humerus fracture is described separately. Dictated by: Dictated on workstation # [id number]
--- NOTE | 2022-02-21 10:08 | Diagnostic Imaging Report ---
HISTORY: Trauma, left humerus injury. TECHNIQUE: Two views of the left shoulder. COMPARISON: None. FINDINGS: Bones appear osteopenic. There is an oblique mildly comminuted fracture of the proximal left humerus diaphysis with lateral displacement and marked medial angulation. There is about 2 cm of overriding. The glenohumeral alignment appears normal. IMPRESSION: Displaced, angulated fracture of the proximal left humerus diaphysis. Dictated by: Dictated on workstation # [id number]
[2022-02-21] MEDS ORDERED: fentaNYL INJ 100 MCG/2 ML AMP ONE (10:21)
[2022-02-21] MEDS ORDERED: fentaNYL INJ 100 MCG/2 ML AMP IVP ONE ×2 (10:30→11:45)
[2022-02-21] MEDS ORDERED: niCARdipine IV 50 MG in NS (IVPB) 230 ML IV SCH (11:15)
[2022-02-21 13:10] VITALS: BP 156/97
== END 2022-02-21 13:15 | disposition short-term general hospital (02) ==
LOC: EDUNIT# 08:51 → ER 08:52
DX: S42.292B Other displaced fracture of upper end of left humerus, initial encounter for open fracture (principal); S01.112A Laceration without foreign body of left eyelid and periocular area, initial encounter; I10 Essential (primary) hypertension; F03.90 Unspecified dementia, unspecified severity, without behavioral disturbance, psychotic disturbance, mood disturbance, and anxiety; H91.90 Unspecified hearing loss, unspecified ear; W18.2XXA Fall in (into) shower or empty bathtub, initial encounter; Y92.002 Bathroom of unspecified non-institutional (private) residence as the place of occurrence of the external cause
CPT/HCPCS: 36415; 51702; 70450; 71045; 72125; 73030; 80053; 81000; 85025; 85610; 85730; 86850; 86900; 86901; 93005

== ENCOUNTER 2022-03-11 23:56 | Emergency (ER) | payer MEDICARE, OTHER, MEDICAID ==
[~2022-03-11] VITALS: Ht 162 cm; Wt 56.6 kg
[2022-03-12] VITALS: BP 148/68
--- NOTE | 2022-03-12 00:24 | ED GI ---
General Chief Complaint: Abdominal/GI Problems Stated Complaint: PULLED PEG TUBE OUT Nursing Triage Note: Arrives per EMS after pulling PEG tube out @ [facility]. Pt lifted to stretcher and attached to NIBP and SpO2 monitors. Pt remains in immobilizer due to previous fx of LUE. Source of Information: Intermediate Records Exam Limitations: Physical Impairments History of Present Illness Date Seen by Provider: March 12, 2022 Time Seen by Provider: 00:20 Initial Comments Patient is an 86-year-old female who presents from a local half-way chief complaint of PEG tube being dislodged this evening as well as her Jernigan becoming dislodged. Patient has history of recent fall with left shoulder fracture and subdural hematoma. She is poorly communicative as a result of the head bleed. She is unable to provide HPI, past medical family or social history. Timing/Duration: 1-3 Hours Allergies and Home Medications Allergies Coded Allergies: quetiapine (Verified Adverse Reaction, Unknown, 12/02/18) confusion Patient Home Medication List Home Medication List Reviewed: Yes Amlodipine Besylate (Amlodipine Besylate) 5 Mg Tablet, 5 MG PO DAILY Prescribed by: KRISS SAGASTUME on 01/30/21 1506 Citalopram Hydrobromide (Citalopram HBr) 10 Mg Tablet, (Reported) Entered as Reported by: BIA GARCIA on 01/26/21 1309 Polymyxin B Sulf/Trimethoprim (Polymyxin B-Tmp Eye Drops) 10 Ml Drops, (Reported) Entered as Reported by: BIA GARCIA on 01/26/21 1309 Review of Systems Review of Systems Constitutional: see HPI Other Comments Unable to get review of systems secondary to patient's physical impairments due to prior subdural hemorrhage Past Zsipeac-Zqmnha-Vfkftf Hx Patient Social History Tobacco Use?: No Substance use?: No Alcohol Use?: No Immunizations Up To Date Tetanus Booster (TDap): Unknown PED Vaccines UTD: No First/Initial COVID19 Vaccinat: YES Second COVID19 Vaccination Theo: YES Third COVID19 Vaccination Date: YES Seasonal Allergies Seasonal Allergies: No Past Medical History Surgeries: No Respiratory: No Currently Using CPAP: No Currently Using BIPAP: No Cardiac: Yes (SEES DR. MOTTA UNSURE WHY) Hypertension Neurological: Yes Dementia Reproductive Disorders: No Female Reproductive Disorders: Denies Sexually Transmitted Disease: No HIV/AIDS: No Genitourinary: Yes UTI-Chronic Gastrointestinal: No Musculoskeletal: Yes Fractures, Gout Endocrine: Yes Hyperthyroidism HEENT: Yes Cataract Loss of Vision: Denies Hearing Impairment: Hard of Hearing Cancer: No Psychosocial: No Integumentary: No Recent Skin Changes Blood Disorders: No Adverse Reaction/Blood Tranf: No Family Medical History Dementia G8 SISTER Diabetes mellitus 19 FATHER No Pertinent Family Hx, Diabetes, Psychiatric Problems Physical Exam Vital Signs Vital Signs - First Documented 03/12/22 00:00 Temp 36.9 Pulse 96 Resp 20 B/P (MAP) 148/68 (94) O2 Delivery Room Air Capillary Refill : Less Than 3 Seconds Height/Weight/BMI Height: 5'4.00" Weight: 117lbs. 8.0oz. 53.039026pk; 21.00 BMI Method:Stated General Appearance: cachetic, thin Respiratory: no respiratory distress, no accessory muscle use Cardiovascular: regular rate, rhythm Gastrointestinal: soft, other (Obvious stoma left upper quadrant of abdomen where PEG tube had been no surrounding erythema no drainage noted) Extremities: other (Left shoulder immobilized) Neurologic/Psychiatric: alert, disoriented x 3, other (No acute distress) Skin: warm/dry, pallor Procedures/Interventions Suture Size: 5-0 Progress/Results/Core Measures Results/Orders My Orders Orders - BASSAM MARTINEZ MD Peg Tube Check (03/12/22 00:46) Vital Signs/I&O 03/12/22 00:00 Temp 36.9 Pulse 96 Resp 20 B/P (MAP) 148/68 (94) O2 Delivery Room Air Blood Pressure Mean: 94 Progress Progress Note : Time: 01:05 Progress Note 20 Gambian PEG tube placed back into the stoma. KUB pending with Gastrografin in order to confirm placement. Diagnostic Imaging Diagonstic Imaging: Xray Comments KUB interpreted by me: Gastrograffin in the stomach. PEG appears appropriately placed Departure Impression Primary Impression: PEG (percutaneous endoscopic gastrostomy) adjustment/replacement/removal Disposition: 01 HOME, SELF-CARE Condition: Improved Departure-Patient Inst. Decision time for Depature: 01:06 Referrals: DEEPA BRYAN DO (PCP/Family) Primary Care Physician Add. Discharge Instructions: Resume prior half-way orders. Return to the emergency department for any new, concerning or emergent complaints. BASSAM MARTINEZ MD March 12, 2022 00:24
--- NOTE | 2022-03-12 07:24 | Diagnostic Imaging Report ---
Exam: Abdominal radiograph with contrast. Date: March 12, 2022. Indication: 86-year-old female, evaluation of PEG tube positioning. PEG tube was pulled out. Comparison: None. Findings: There is administration of contrast through the PEG tube with contrast extension into the stomach. There is no abnormal extravasation of contrast. There is a high attenuation object projecting over the right upper quadrant which may be external to the patient although correlation is needed. There are no abnormally distended gas-filled segments of bowel. There is no identified free intraperitoneal air on supine assessment. Impression: 1. The PEG tube is in the stomach. Dictated by: Dictated on workstation # [id number]
== END 2022-03-12 02:55 | disposition home or self-care (01) ==
LOC: EDUNIT# 23:56 → ER 23:58
DX: K94.23 Gastrostomy malfunction (principal)
CPT/HCPCS: 49465

== ENCOUNTER 2022-03-12 16:21 | Inpatient (IN) | payer MEDICARE, OTHER, MEDICAID ==
[2022-03-12] VITALS (9 sets, daily range): BP systolic 89–115; BP diastolic 45–62
[~2022-03-12] VITALS: Ht 162.5 cm; Wt 47.7 kg
[2022-03-12] MEDS ORDERED: ONDANSETRON 4 MG/2 ML (SDV) Z0FRAN IVP ONE (16:45)
[2022-03-12 17:01] LABS: BASOPHILS % (AUTO) 0 % (0-10); EOSINOPHILS % (AUTO) 0 % (0-10); HEMATOCRIT 32 % (35-52); HEMOGLOBIN 10.6 g/dL (11.5-16.0); LYMPHOCYTES # (AUTO) 0.7 10^3/uL (1.0-4.0); LYMPHOCYTES % (AUTO) 4 % (12-44); MEAN CORPUSCULAR HEMOGLOBIN 30 pg (25-34); MEAN CORPUSCULAR HGB CONC 33 g/dL (32-36); MEAN CORPUSCULAR VOLUME 91 fL (80-99); MEAN PLATELET VOLUME 9.2 fL (9.0-12.2); MONOCYTES % (AUTO) 6 % (0-12); NEUTROPHILS # (AUTO) 14.8 10^3/uL (1.8-7.8); NEUTROPHILS % (AUTO) 89 % (42-75); PLATELET COUNT 353 10^3/uL (130-400); WHITE BLOOD COUNT 16.6 10^3/uL (4.3-11.0)
[2022-03-12 17:17] LABS: ALBUMIN 3.6 GM/DL (3.2-4.5); POTASSIUM 4.6 MMOL/L (3.6-5.0)
[2022-03-12 17:18] LABS: CALCIUM 9.9 MG/DL (8.5-10.1)
[2022-03-12 17:20] LABS: PROTHROMBIN TIME PATIENT 13.2 SEC (12.2-14.7)
[2022-03-12 17:22] LABS: BAND NEUTROPHILS 0 %; BASOPHILS % (MANUAL) 0 %; EOSINOPHILS % (MANUAL) 0 %; LYMPHOCYTES % (MANUAL) 4 %; MONOCYTES % (MANUAL) 4 %; NEUTROPHILS % (MANUAL) 92 %; RBC MORPH NORMAL
[2022-03-12 17:23] LABS: CREATININE SERUM 1.06 MG/DL (0.60-1.30)
--- NOTE | 2022-03-12 17:24 | Diagnostic Imaging Report ---
EXAMINATION: Chest 1 view. HISTORY: Hypoxia. COMPARISON: 02/21/2022. FINDINGS: Heart size and pulmonary vasculature are normal. The lungs are clear without consolidation, pleural effusion or pneumothorax. Minimal left basilar atelectasis. The osseous structures are intact. Chronic right rib deformities. IMPRESSION: No acute radiographic abnormality in the chest. Dictated by: Dictated on workstation # [id number]
[2022-03-12 18:22] LABS: BILIRUBIN,URINE NEGATIVE (NEGATIVE); CLARITY,URINE CLOUDY; COLOR,URINE YELLOW; GLUCOSE, URINE (UA) NEGATIVE (NEGATIVE); KETONES,URINE NEGATIVE (NEGATIVE); LEUKOCYTE ESTERASE ,URINE 3+ (NEGATIVE); NITRITE,URINE NEGATIVE (NEGATIVE); PROTEIN,URINE 2+ (NEGATIVE)
[2022-03-12] MEDS ORDERED: CEFEPIME INJECTION 1,000 MG in NS (IVPB) 50 ML IV ONE (18:30)
[2022-03-12] MEDS ORDERED: NS IV 1000 ML 1,000 ML IV SCH (18:30)
[2022-03-12] MEDS ORDERED: APAP 325 MG/10.15 ML LIQ (TYLENOL) UDC PO ONE (18:30)
--- NOTE | 2022-03-12 18:38 | ED General ---
General Chief Complaint: General Problems/Pain Stated Complaint: VOMITING Nursing Triage Note: ARRIVES VIA EMS TO ROOM 5 AT THIS TIME. ALERT AND ORIENTED TO VOICE. HX OF DEMENTIA. [facility] REPORT[facility] TO HAVE VOMITED AFTER BEING FED EVERY HOUR USUAL THROUGH HER FEEING TUBE. THIS SAME PATIENT HAD A RECENT ED ADMISSION FOR PULLING OUT HER MUSE CATHETER ADN HER GASTRIC TUBE. Source of Information: Patient, EMS, Old Records Exam Limitations: Other (Chronic verbal deficits) History of Present Illness Date Seen by Provider: March 12, 2022 Time Seen by Provider: 16:23 Initial Comments This 86-year-old resident of [facility] presents to the emergency room via EMS with primary complaint of vomiting. She does have some significant dysphagia and also has a PEG tube and usually has indwelling Muse catheter. She was seen in this ER last night after removing her own PEG tube and Muse catheter. PEG tube was replaced by Muse catheter was left out at fdc request. On arrival she is found to be febrile. PEG tube was tested yesterday with fluoroscopy and x-ray. There were no concerns about placement or functionality at that time. The fdc has reportedly been providing frequent feeds today and patient began vomiting. She is febrile on arrival and has coarse breath sounds. During my assessment she is hypoxic with oxygen saturations of 88%. Patient has dementia and minimally communicates as a result. She is able to answer some questions and denies pain or nausea at this time. Patient is also in a shoulder immobilizer from a recent humerus fracture on the left. Allergies and Home Medications Allergies Coded Allergies: melatonin (Verified Allergy, Unknown, 03/12/22) quetiapine (Verified Adverse Reaction, Unknown, 12/02/18) confusion Patient Home Medication List Home Medication List Reviewed: Yes Amlodipine Besylate (Amlodipine Besylate) 5 Mg Tablet, 5 MG PO DAILY Prescribed by: KRISS SAGASTUME on 01/30/21 1506 Citalopram Hydrobromide (Citalopram HBr) 10 Mg Tablet, (Reported) Entered as Reported by: BIA GARCIA on 01/26/21 1309 Polymyxin B Sulf/Trimethoprim (Polymyxin B-Tmp Eye Drops) 10 Ml Drops, (Reported) Entered as Reported by: BIA GARCIA on 01/26/21 1309 Review of Systems Review of Systems Constitutional: see HPI EENTM: see HPI Respiratory: no symptoms reported Cardiovascular: no symptoms reported Gastrointestinal: see HPI Genitourinary: see HPI : No Musculoskeletal: no symptoms reported Skin: no symptoms reported Psychiatric/Neurological: See HPI Hematologic/Lymphatic: No Symptoms Reported Immunological/Allergic: no symptoms reported Past Gqarmos-Erqmkd-Cdrlkl Hx Patient Social History Smoking Status: Unknown if Ever Smoked Substance use?: No Alcohol Use?: No Immunizations Up To Date Tetanus Booster (TDap): Unknown PED Vaccines UTD: No First/Initial COVID19 Vaccinat: YES Second COVID19 Vaccination Theo: YES Third COVID19 Vaccination Date: YES Seasonal Allergies Seasonal Allergies: No Past Medical History Surgeries: Yes Abdominal (PEG tube) Respiratory: No Currently Using CPAP: No Currently Using BIPAP: No Cardiac: Yes (SEES DR. MOTTA UNSURE WHY) Hypertension Neurological: Yes Dementia Reproductive Disorders: No Female Reproductive Disorders: Denies Sexually Transmitted Disease: No HIV/AIDS: No Genitourinary: Yes UTI-Chronic Gastrointestinal: No Musculoskeletal: Yes Fractures, Gout Endocrine: Yes Hyperthyroidism HEENT: Yes Cataract Loss of Vision: Denies Hearing Impairment: Hard of Hearing Cancer: No Psychosocial: No Integumentary: No Recent Skin Changes Blood Disorders: No Adverse Reaction/Blood Tranf: No Family Medical History Dementia G8 SISTER Diabetes mellitus 19 FATHER No Pertinent Family Hx, Diabetes, Psychiatric Problems Physical Exam-Suspected Sepsis Physical Exam Vital Signs Vital Signs - First Documented 03/12/22 03/12/22 16:28 20:48 Temp 38.4 Pulse 104 Resp 18 B/P (MAP) 176/86 (116) Pulse Ox 96 O2 Delivery Nasal Cannula O2 Flow Rate 15.00 Capillary Refill : Less Than 3 Seconds Blood Pressure Mean: 116 Height, Weight, BMI Height: 5'4.00" Weight: 117lbs. 8.0oz. [id number]; 21.00 BMI Method:Stated General Appearance: WD/WN, Mild Distress (Appears uncomfortable, coarse respirations) HEENT: PERRL/EOMI, Normal ENT Inspection Neck: Normal Inspection Respiratory: No Accessory Muscle Use, No Respiratory Distress, Rhonci, Wheezing Cardiovascular: Regular Rate, Rhythm, No Edema, No Murmur Gastrointestinal: Normal Bowel Sounds, Non Tender, Soft, Other (PEG tube in place with some feed within the tube and some feed leaking around the ostomy site. No inflammatory changes and no tenderness.) Extremity: Normal Inspection, No Pedal Edema Neurologic/Psychiatric: Alert, Other (Significant cognitive and speech deficits from dementia) Skin: normal color, warm/dry Focused Exam Lactate Level 03/12/22 16:45: Lactic Acid Level 1.19 Lactic Acid Level Procedures/Interventions Suture Size: 5-0 Progress/Results/Core Measures Suspected Sepsis SIRS Temperature: Pulse: 104 Respiratory Rate: 18 Laboratory Tests 03/12/22 16:45: White Blood Count 16.6H Blood Pressure 176 /86 Mean: 116 03/12/22 16:45: Lactic Acid Level 1.19 Laboratory Tests 03/12/22 16:45: Creatinine 1.06, INR Comment 1.0, Platelet Count 353, Total Bilirubin 1.0 Results/Orders Lab Results Laboratory Tests Test 03/12/22 16:29 03/12/22 16:45 03/12/22 18:16 Range/Units Influenza Type A (RT-PCR) Not Detected Not Detecte Influenza Type B (RT-PCR) Not Detected Not Detecte SARS-CoV-2 RNA (RT-PCR) Not Detected Not Detecte White Blood Count 16.6 H 4.3-11.0 10^3/uL Red Blood Count 3.49 L 3.80-5.11 10^6/uL Hemoglobin 10.6 L 11.5-16.0 g/dL Hematocrit 32 L 35-52 % Mean Corpuscular Volume 91 80-99 fL Mean Corpuscular Hemoglobin 30 25-34 pg Mean Corpuscular Hemoglobin Concent 33 32-36 g/dL Red Cell Distribution Width 14.7 H 10.0-14.5 % Platelet Count 353 130-400 10^3/uL Mean Platelet Volume 9.2 9.0-12.2 fL Immature Granulocyte % (Auto) 1 % Neutrophils (%) (Auto) 89 H 42-75 % Lymphocytes (%) (Auto) 4 L 12-44 % Monocytes (%) (Auto) 6 0-12 % Eosinophils (%) (Auto) 0 0-10 % Basophils (%) (Auto) 0 0-10 % Neutrophils # (Auto) 14.8 H 1.8-7.8 10^3/uL Lymphocytes # (Auto) 0.7 L 1.0-4.0 10^3/uL Monocytes # (Auto) 1.0 0.0-1.0 10^3/uL Eosinophils # (Auto) 0.0 0.0-0.3 10^3/uL Basophils # (Auto) 0.0 0.0-0.1 10^3/uL Immature Granulocyte # (Auto) 0.1 0.0-0.1 10^3/uL Neutrophils % (Manual) 92 % Lymphocytes % (Manual) 4 % Monocytes % (Manual) 4 % Eosinophils % (Manual) 0 % Basophils % (Manual) 0 % Band Neutrophils 0 % Blood Morphology Comment NORMAL Prothrombin Time 13.2 12.2-14.7 SEC INR Comment 1.0 0.8-1.4 Activated Partial Thromboplast Time 27 24-35 SEC Sodium Level 135 135-145 MMOL/L Potassium Level 4.6 3.6-5.0 MMOL/L Chloride Level 97 L 98-107 MMOL/L Carbon Dioxide Level 22 21-32 MMOL/L Anion Gap 16 H 5-14 MMOL/L Blood Urea Nitrogen 47 H 7-18 MG/DL Creatinine 1.06 0.60-1.30 MG/DL Estimat Glomerular Filtration Rate 51 BUN/Creatinine Ratio 44 Glucose Level 142 H 70-105 MG/DL Lactic Acid Level 1.19 0.50-2.00 MMOL/L Calcium Level 9.9 8.5-10.1 MG/DL Corrected Calcium 10.2 H 8.5-10.1 MG/DL Total Bilirubin 1.0 0.1-1.0 MG/DL Aspartate Amino Transf (AST/SGOT) 28 5-34 U/L Alanine Aminotransferase (ALT/SGPT) 37 0-55 U/L Alkaline Phosphatase 112 40-136 U/L C-Reactive Protein High Sensitivity 2.94 H 0.00-0.50 MG/DL Total Protein 7.0 6.4-8.2 GM/DL Albumin 3.6 3.2-4.5 GM/DL Lipase 19 8-78 U/L Procalcitonin 0.33 H <0.10 NG/ML Urine Color YELLOW Urine Clarity CLOUDY Urine pH 7.0 5-9 Urine Specific [place] 1.020 1.016-1.022 Urine Protein 2+ H NEGATIVE Urine Glucose (UA) NEGATIVE NEGATIVE Urine Ketones NEGATIVE NEGATIVE Urine Nitrite NEGATIVE NEGATIVE Urine Bilirubin NEGATIVE NEGATIVE Urine Urobilinogen 0.2 < = 1.0 MG/DL Urine Leukocyte Esterase 3+ H NEGATIVE Urine RBC (Auto) 2+ H NEGATIVE Urine RBC 10-25 H /HPF Urine WBC TNTC H /HPF Urine Crystals NONE /LPF Urine Bacteria LARGE H /HPF Urine Casts NONE /LPF Urine Mucus NEGATIVE /LPF Urine Culture Indicated CULTURE PENDING My Orders Orders - HARMAN LUCAS MD Covid 19 Inhouse Test (03/12/22 16:34) Influenza A And B By Pcr (03/12/22 16:34) Cbc With Automated Diff (03/12/22 16:34) Comprehensive Metabolic Panel (03/12/22 16:34) Blood Culture (03/12/22 16:34) Sputum Culture (03/12/22 16:34) Urinalysis (03/12/22 16:34) Urine Culture (03/12/22 16:34) Protime With Inr (03/12/22 16:34) Partial Thromboplastin Time (03/12/22 16:34) Chest 1 View, Ap/Pa Only (03/12/22 16:34) Ed Iv/Invasive Line Start (03/12/22 16:34) Ed Iv/Invasive Line Start (03/12/22 16:34) Vital Signs Adult Sepsis Patie Q15M (03/12/22 16:34) O2 (03/12/22 16:34) Remove Rings In Anticipation O (03/12/22 16:34) Lactic Acid Analyzer (03/12/22 16:34) Hs C Reactive Protein (03/12/22 16:34) Lipase (03/12/22 16:34) Procalcitonin (Pct) (03/12/22 16:34) Ondansetron Injection (Zofran Injectio (03/12/22 16:45) Manual Differential (03/12/22 16:45) Code/Resuscitation (03/12/22 19:12) Medications Given in ED Current Medications Medications Dose Ordered Sig/Kayla Route Start Time Stop Time Status Last Admin Dose Admin Acetaminophen 850 mg ONCE ONCE PO 03/12/22 18:30 03/12/22 18:31 DC 03/12/22 19:35 850 MG Cefepime HCl 1000 mg/Sodium Chloride 50 ml @ 100 mls/hr ONCE ONCE IV 03/12/22 18:30 03/12/22 18:59 DC 03/12/22 19:33 100 MLS/HR Ondansetron HCl 4 mg ONCE ONCE IVP 03/12/22 16:45 03/12/22 16:47 DC 03/12/22 17:17 4 MG Vital Signs/I&O 03/12/22 03/12/22 03/12/22 16:28 17:55 20:48 Temp 38.4 37.4 37.5 Pulse 104 108 Resp 18 21 B/P (MAP) 176/86 (116) 105/53 (70) Pulse Ox 96 90 O2 Delivery Nasal Cannula Nasal Cannula O2 Flow Rate 15.00 Capillary Refill : Less Than 3 Seconds Blood Pressure Mean: 116 Progress Note #1: Time: 18:50 Progress Note Patient was seen and examined upon arrival. Respiratory therapy staff attended to her breathing and was able to improve her secretions and saturation. Chest x-ray was unremarkable. She was found to have elevated WBC. Source of infection seems to be urinary tract infection based on urinalysis. Dr. Maldonado evaluated the patient as well and found her to have a similar subjective status to last night. Cefepime was ordered for initial antibiotic therapy after blood cultures and lactic acid were obtained. A liter of IV fluids is infusing. Progress Note #2: Time: 19:25 Progress Note I had a long conversation with the patient's daughter about her declining status since having recent falls and being transferred to at the beginning of the month. We discussed her CODE STATUS as it is presently full code for the fdc but had been DNR at [facility]. I reviewed risks and benefits of resuscitation scenarios such as CPR and intubation. I expressed concern about potential for significant harm during these events without much benefit for long-term quality of life. Daughter appreciated this conversation and these concerns. She shares the concerns and would like to have her admitted with a DO NOT RESUSCITATE status. Patient has some significant behavioral problems and is currently requiring a sitter to maintain safety. She will likely need some help with establishing services when patient is discharged. Diagnostic Imaging Diagonstic Imaging: Xray Plain Films/CT/US/NM/MRI: chest Comments Chest x-ray viewed by me and report reviewed. See report below: NAME: SUDARSHAN ARAUJO Tiffany [facility] REC#: [id number] PT STATUS: REG ER : 1935 PHYSICIAN: HARMAN LUCAS MD ADMIT DATE: 03/12/22/ER Signed Date of Exam:03/12/22 CHEST 1 VIEW, AP/PA ONLY EXAMINATION: Chest 1 view. HISTORY: Hypoxia. COMPARISON: 02/21/2022. FINDINGS: Heart size and pulmonary vasculature are normal. The lungs are clear without consolidation, pleural effusion or pneumothorax. Minimal left basilar atelectasis. The osseous structures are intact. Chronic right rib deformities. IMPRESSION: No acute radiographic abnormality in the chest. Dictated by: Dictated on workstation # [id number] Dict: 03/12/22 172 Trans: 03/12/221731 [facility] [id number] Interpreted by: ADALI PEREZ DO Electronically signed by: ADALI PEREZ DO 03/12/221731 Departure Communication (Admissions) Time/Spoke to Admitting Phy: 18:53 Dr. Hoang Impression Primary Impression: Sepsis Qualified Codes: A41.9 - Sepsis, unspecified organism Additional Impressions: Urinary tract infection Qualified Codes: N39.0 - Urinary tract infection, site not specified Aspiration into airway Qualified Codes: T17.908A - Unspecified foreign body in respiratory tract, part unspecified causing other injury, initial encounter Vomiting Qualified Codes: R11.10 - Vomiting, unspecified Disposition: 09 ADMITTED INPATIENT Condition: Improved Admissions Decision to Admit Reason: Admit from ER (General) Decision to Admit/Date: March 12, 2022 Time/Decision to Admit Time: 18:53 Departure-Patient Inst. Referrals: DEEPA BRYAN DO (PCP/Family) Primary Care Physician HARMAN LUCAS MD March 12, 2022 18:38
[2022-03-12 18:50] LABS: BACTERIA,URINE LARGE /HPF; WBC,URINE TNTC /HPF
[2022-03-12] MEDS ORDERED: ONDANSETRON 4 MG/2 ML (SDV) Z0FRAN IV PRN (21:00)
[2022-03-12] MEDS: FAMOTIDINE 20MG/2ML IV (PEPCID) IV SCH (21:13)
[2022-03-12] MEDS: LACTATED RINGERS 1,000 ML IV SCH (21:13)
[2022-03-12] MEDS ORDERED: RT-ALBUTEROL/IPRATROPIUM 3 ML (DUONEB) VIAL INH PRN (22:15)
[2022-03-13] VITALS (12 sets, daily range): BP systolic 101–133; BP diastolic 51–91
[2022-03-13] MEDS ORDERED: DIATRIZOATE MEGLUM/SODIUM 37% 120 ML (GASTROGRAFIN) NG ONE
[2022-03-13] MEDS: RT-ALBUTEROL/IPRATROPIUM 3 ML (DUONEB) VIAL INH SCH ×6 (01:59→22:07)
[2022-03-13] MEDS: CEFEPIME 1,000 MG/NS 50 ML IVPB IV SCH ×6 (03:46→20:10)
[2022-03-13] MEDS: LACTATED RINGERS 1,000 ML IV SCH ×3 (03:47→18:01)
[2022-03-13 05:03] LABS: BASOPHILS % (AUTO) 0 % (0-10); EOSINOPHILS % (AUTO) 0 % (0-10); HEMATOCRIT 27 % (35-52); HEMOGLOBIN 8.8 g/dL (11.5-16.0); LYMPHOCYTES # (AUTO) 1.3 10^3/uL (1.0-4.0); LYMPHOCYTES % (AUTO) 7 % (12-44); MEAN CORPUSCULAR HEMOGLOBIN 31 pg (25-34); MEAN CORPUSCULAR HGB CONC 33 g/dL (32-36); MEAN CORPUSCULAR VOLUME 93 fL (80-99); MEAN PLATELET VOLUME 9.4 fL (9.0-12.2); MONOCYTES # (AUTO) 1.1 10^3/uL (0.0-1.0); MONOCYTES % (AUTO) 6 % (0-12); NEUTROPHILS # (AUTO) 15.2 10^3/uL (1.8-7.8); NEUTROPHILS % (AUTO) 86 % (42-75); PLATELET COUNT 289 10^3/uL (130-400); WHITE BLOOD COUNT 17.7 10^3/uL (4.3-11.0)
[2022-03-13 05:17] LABS: CALCIUM 8.9 MG/DL (8.5-10.1); CREATININE SERUM 1.04 MG/DL (0.60-1.30)
--- NOTE | 2022-03-13 06:53 | Diagnostic Imaging Report ---
INDICATION: PEG tube placement. FINDINGS: Small amount of contrast was injected via patient's PEG tube. This all appears to be kinked contained within the stomach and proximal small bowel. Bowel gas pattern is otherwise nonspecific. Lung bases are clear. No free air. IMPRESSION: The PEG tube appears to be in satisfactory position. Dictated by: Dictated on workstation # [id number]
--- NOTE | 2022-03-13 06:55 | Diagnostic Imaging Report ---
INDICATION: Sepsis and vomiting. Comparison is made with prior examination of 03/12/2022. FINDINGS: The heart size is stable. There are patchy bibasilar infiltrates, right greater than left. There is no pleural effusion or pneumothorax. The mediastinum is unremarkable. IMPRESSION: Increasing bibasilar infiltrates, right greater than left, suspect for pneumonia. No other acute cardiopulmonary abnormality. Dictated by: Dictated on workstation # [id number]
[2022-03-13] MEDS ORDERED: HALOPERIDOL 5 MG/ML (HALDOL) VIAL IM ONE (14:00)
[2022-03-13] MEDS ORDERED: LORazepam INJ 2 MG/ML (ATIVAN) VIAL IVP ONE (17:45)
[2022-03-13] MEDS ORDERED: CATHETER FLUSH 10 ML SYR IVP PRN (18:00)
--- NOTE | 2022-03-13 19:05 | History & Physical-Hospitalist ---
History of Present Illness HPI/Chief Complaint Sonja Crawford is an 86 year old female with PMH HTN, dementia, dysphagia s/p PEG placement, chronic indwelling fisher catheter, who presented with vomiting. She lives at [facility]. The day before she had pulled out her PEG and fisher. She had it replaced in the ER. Upon arrival this visit, she was found to be febrile. She is a poor historian and is unable to provide any meaningful history. Upon my exam, she reports pain in her left arm. She denies shortness of breath. She denies chest pain. She is only oriented to self. There is no family at the bedside. Source: patient, RN/MD Exam Limitations: clinical condition Date Seen 03/13/22 Time Seen by a Provider: 10:00 Attending Physician Trey Holliday DO PCP Admitting Physician: Caron Hoang MD Attending Physician: Caron Hoang MD Referring Physician Date of Admission March 12, 2022 at 19:21 Home Medications & Allergies Home Medications Reviewed patient Home Medication Reconciliation performed by pharmacy medication reconciliations energy conservation technician and/or nursing. Patients Allergies have been reviewed. Allergies Allergies Coded Allergies melatonin (Verified Allergy, Unknown, 03/12/22) quetiapine (Verified Adverse Reaction, Unknown, 12/02/18) confusion Past Gxbzgzx-Gepmug-Dxvwlt Hx Patient Social History Smoking Status: Unknown if Ever Smoked Substance use?: No Alcohol Use?: No Pt feels they are or have been: Unable to obtain Immunizations Up To Date Date of Influenza Vaccine: Jul 22, 2017 First/Initial COVID19 Vaccinat: YES Second COVID19 Vaccination Theo: YES Tetanus Booster (TDap): Less Than 5 Years Hepatitis A: No Hepatitis B: No PED Vaccines UTD: No Date of Pneumonia Vaccine: Jul 22, 2017 Seasonal Allergies Seasonal Allergies: No Current Status status: No Advance Directives: Unable to obtain Communicates: Does Not Communicate Primary Language: Serbian Preferred Spoken Language: Serbian Past Medical History Surgeries: Abdominal (PEG tube) Currently Using CPAP: No Currently Using BIPAP: No Hypertension Dementia Sexually Transmitted Disease: No HIV/AIDS: No UTI-Chronic Fractures, Gout Hyperthyroidism Cataract Loss of Vision: Denies Hearing Impairment: Hard of Hearing Recent Skin Changes Blood Disorders: No Adverse Reaction/Blood Tranf: No PMHx: HTN HLD PSurgHx: none Family Medical History Dementia G8 SISTER Diabetes mellitus 19 FATHER No Pertinent Family Hx, Diabetes, Psychiatric Problems Review of Systems Constitutional: see HPI Physical Exam Physical Exam Vital Signs Vital Signs - First Documented 03/12/22 03/12/22 16:28 21:51 Temp 38.4 Pulse 104 Resp 18 B/P (MAP) 176/86 (116) Pulse Ox 96 O2 Delivery Nasal Cannula FiO2 70 Capillary Refill : Less Than 3 Seconds Height, Weight, BMI Height: 5'4.00" Weight: 117lbs. 8.0oz. 53.568274kk; 18.06 BMI Method:Stated General Appearance: Chronically ill, Thin HEENT: PERRL/EOMI, Pharynx Normal Neck: Normal Inspection, Supple Respiratory: No Respiratory Distress, Decreased Breath Sounds Cardiovascular: Regular Rate, Rhythm, No Murmur Gastrointestinal: Normal Bowel Sounds, Non Tender, Soft Extremity: No Pedal Edema, Other (left arm immobilized) Neurologic/Psychiatric: Alert, Disoriented Skin: Normal Color, Warm/Dry Results Results/Procedures Labs Laboratory Tests 03/12/22 16:45 03/13/22 04:45 Patient resulted labs reviewed. Imaging: Reviewed Imaging Report Assessment/Plan Admission Diagnosis Sepsis due to pneumonia Admission Status: Inpatient Order (span 2 midnights) Reason for Inpatient Admission: IV antibiotics and fluids Assessment and Plan Sepsis due to pneumonia Acute respiratory failure with hypoxia UTI SIRS+ with fever and leukocytosis CXR with bibasilar infiltrates concerning for pneumonia Started on Cefepime IV fluids UA concerning for UTI Urine culture pending Supplemental oxygen as needed Dysphagia PEG dependence Meds per tube Dietary consulted Plan to resume tube feeds tomorrow Dementia High risk for delirium Ativan as needed for agitation Humerus fracture Previous diagnosis, not acute this admission Immobilize left arm Debility PT/OT DVT prophylaxis: Lovenox Diagnosis/Problems Diagnosis/Problems (1) Sepsis Status: Acute Qualifiers: Sepsis type: sepsis due to unspecified organism Sepsis acute organ dysfunction status: without acute organ dysfunction Qualified Codes: A41.9 - Sepsis, unspecified organism (2) PNA (pneumonia) Status: Acute (3) Acute respiratory failure with hypoxia Status: Acute (4) Urinary tract infection Status: Acute Qualifiers: Urinary tract infection type: site unspecified Hematuria presence: without hematuria Qualified Codes: N39.0 - Urinary tract infection, site not specified (5) PEG (percutaneous endoscopic gastrostomy) status Status: Chronic (6) Dysphagia Status: Chronic (7) Severe protein-calorie malnutrition Status: Chronic (8) Dementia Status: Chronic EZ SCRUGGS MD March 13, 2022 19:05
[2022-03-13] MEDS: FAMOTIDINE 20MG/2ML IV (PEPCID) IV SCH (20:10)
[2022-03-13] MEDS: APAP 325 MG/10.15 ML LIQ (TYLENOL) UDC PEG PRN (20:10)
[2022-03-13] MEDS: ENOXAPARIN INJECTION 30 MG/0.3 ML SYR SC SCH (22:26)
[2022-03-14] VITALS (8 sets, daily range): BP systolic 109–170; BP diastolic 58–89
[2022-03-14] MEDS: RT-ALBUTEROL/IPRATROPIUM 3 ML (DUONEB) VIAL INH SCH ×6 (02:06→22:04)
[2022-03-14] MEDS: LACTATED RINGERS 1,000 ML IV SCH ×3 (02:10→22:58)
[2022-03-14] MEDS: CEFEPIME 1,000 MG/NS 50 ML IVPB IV SCH ×4 (04:41→11:13)
[2022-03-14 06:19] LABS: BASOPHILS % (AUTO) 0 % (0-10); EOSINOPHILS % (AUTO) 0 % (0-10); HEMATOCRIT 24 % (35-52); HEMOGLOBIN 7.7 g/dL (11.5-16.0); LYMPHOCYTES # (AUTO) 0.9 10^3/uL (1.0-4.0); LYMPHOCYTES % (AUTO) 7 % (12-44); MEAN CORPUSCULAR HEMOGLOBIN 30 pg (25-34); MEAN CORPUSCULAR HGB CONC 32 g/dL (32-36); MEAN CORPUSCULAR VOLUME 94 fL (80-99); MEAN PLATELET VOLUME 9.9 fL (9.0-12.2); MONOCYTES # (AUTO) 0.8 10^3/uL (0.0-1.0); MONOCYTES % (AUTO) 6 % (0-12); NEUTROPHILS # (AUTO) 10.4 10^3/uL (1.8-7.8); NEUTROPHILS % (AUTO) 86 % (42-75); PLATELET COUNT 193 10^3/uL (130-400); WHITE BLOOD COUNT 12.1 10^3/uL (4.3-11.0)
[2022-03-14 06:33] LABS: POTASSIUM 4.3 MMOL/L (3.6-5.0)
[2022-03-14 06:34] LABS: CALCIUM 8.8 MG/DL (8.5-10.1)
[2022-03-14 06:38] LABS: CREATININE SERUM 0.75 MG/DL (0.60-1.30)
[2022-03-14] MEDS ORDERED: AMLO-250 PO (08:51)
[2022-03-14] MEDS ORDERED: OXYC5SOL19 GT (08:51)
[2022-03-14] MEDS ORDERED: ALEN70TA80 PO (08:51)
[2022-03-14] MEDS ORDERED: AC160U10 PO (08:51)
[2022-03-14] MEDS ORDERED: POLY17PO6 PO (08:51)
[2022-03-14] MEDS ORDERED: POLY10DR OU (08:51)
[2022-03-14] MEDS ORDERED: DOXA1TAB2 PO (08:51)
[2022-03-14] MEDS ORDERED: SENN1TAB67 PO (08:51)
[2022-03-14] MEDS ORDERED: CHOL500050 PO (08:51)
[2022-03-14] MEDS ORDERED: ASPI-999 PO (08:51)
[2022-03-14] MEDS ORDERED: CARB15DR OU (08:51)
[2022-03-14] MEDS ORDERED: QUET25TA PO (08:51)
[2022-03-14] MEDS ORDERED: OMEG-109 PO (08:51)
[2022-03-14] MEDS ORDERED: QUET25TA35 PO (08:51)
[2022-03-14] MEDS ORDERED: MULT-1136 PO (08:51)
--- NOTE | 2022-03-14 09:43 | Physical Therapy Evaluation ---
PT Evaluation-General Medical Diagnosis Admission Date March 12, 2022 at 19:21 Medical Diagnosis: sepsis,vomiting,UTI Onset Date: March 12, 2022 Therapy Diagnosis Therapy Diagnosis: debility Height/Weight Height (Feet): 5 Height (Inches): 4.00 Weight (Pounds): 117 Weight (Ounces): 8.0 Precautions Precautions/Isolations: Fall Prevention, Standard Precautions Referral Physician: Michelle Reason for Referral: Evaluation/Treatment Medical History Pertinent Medical History: Arthritis, Dementia, HTN Additional Medical History left humeral fracture with immobilizer Current History EMS from [place] due to vomiting (per report patient pulled out PEG and fisher) Reviewed History: Yes Social History Home: [facility] Prior Prior Level of Function SCALE: Activities may be completed with or without assistive devices. 7-Mhvqyyxphx-hwpudlz completes the activity by him/herself with no assistance from a helper. 5-Set-up or Clean-up Assistance-helper sets up or cleans up; patient completes activity. [place] assists only prior to or following the activity. 4-Supervision or Touching Assistance-helper provides verbal cues and/or touching/steadying and/or contact guard assistance as patient completes activity. Assistance may be provided throughout the activity or intermittently. 3-Partial/Moderate Assistance-helper does LESS THAN HALF the effort. [place] lifts, holds or supports trunk or limbs, but provides less than half the effort. 2-Substantial/Maximal Assistance-helper does MORE THAN HALF the effort. [place] lifts or holds trunk or limbs and provides more than half the effort. 9-Pbgvyzmeh-ytcrgg does ALL the effort. Patient does none of the effort to complete the activity. Or, the assistance of 2 or more helpers is required for the patient to complete the activity. If activity was not attempted, code reason: 7-Patient Refused. 9-Not Applicable-not attempted and the patient did not perform the activity before the current illness, exacerbation or injury. 10-Not Attempted due to Environmental Limitations-(lack of equipment, weather restraints, etc.). 88-Not Attempted due to Medical Conditions or Safety Concerns. Bed Mobility: 1 Transfers (B,C,W/C): 1 Gait: 9 Stairs: 9 Wheelchair Mobility: 9 Indoor Mobility (Ambulation): Not [place] Stairs: Not [place] nonambulatory PLOF per correction report PT Evaluation-Current Subjective Due to patient advanced dementia, this PT contacted NH on patient PLOF. Per NH staff, patient is dependent with all bed mobility and transfers and is non ambulatory. Objective Patient Orientation: Confused Attachments: Fisher Catheter, IV ROM/Strength ROM Lower Extremities bilateral LE WFL Strength Lower Extremities NT due to patient inability to follow direction Integumentary/Posture Bowel Incontinence: Yes Bladder Incontinence: Fisher Cath Posture kyphotic Neuromuscular (Tone, Coordination, Reflexes) diminished coordination Sensory Vision: Unable to Assess Hearing: Unable to Assess Transfers Roll Left to Right (QC): 1 Sit to Lying (QC): 1 Lying to Sitting/Side of Bed(Q: 1 sat EOB to attempt to place immobilizer for left humeral fracture however, patient became agitated. Returned patient to bed with live sitter present. Gait Does the Patient Walk?: No and Walking Goal NOT indicated Balance Sitting Static: Poor Sitting Dynamic: Poor Assessment/Needs Due to patient advanced dementia and non ambulatory PLOF, No skilled PT indicated at this time. Rehab Potential: Guarded PT Plan Treatment/Plan Treatment Plan: Discontinue PT Treatment Duration: March 14, 2022 Frequency: 1 time per week Estimated Hrs Per Day: .25 hour per day Time/GCodes Time In: 830 Time Out: 844 Total Billed Treatment Time: 14 Total Billed Treatment 1 visit EVMod 14 min DEVIN FINCH PT March 14, 2022 09:43
--- NOTE | 2022-03-14 10:52 | Occupational Therapy Eval ---
OT Evaluation-General/PLF Medical Diagnosis Admission Date March 12, 2022 at 19:21 Medical Diagnosis: sepsis,vomiting,UTI Onset Date: March 12, 2022 Therapy Diagnosis Therapy Diagnosis: decreased ADL status Height/Weight Height (Feet): 5 Height (Inches): 4.00 Weight (Pounds): 117 Weight (Ounces): 8.0 Precautions Precautions/Isolations: Fall Prevention, Standard Precautions Referral Physician: Michelle Referral Reason: Evaluation/Treatment Medical History Pertinent Medical History: Arthritis, Dementia, HTN Additional Medical History HTN, dementia, dysphagia s/p PEG, chronic indwelling catheter, hyperthyroidism, GOUT Current History ED due to vomiting, per report pt had pulled out PEG and catheter. Pt found to be febrile. Social History Home: Assisted ADL-Prior Level of Function SCALE: Activities may be completed with or without assistive devices. 5-[id number]-[id number] completes the activity by him/herself with no assistance from a helper. 5-Set-up or Clean-up Assistance-helper sets up or cleans up; patient completes activity. [place] assists only prior to or following the activity. 4-Supervision or Touching Assistance-helper provides verbal cues and/or touching/steadying and/or contact guard assistance as patient completes activity. Assistance may be provided throughout the activity or intermittently. 3-Partial/Moderate Assistance-helper does LESS THAN HALF the effort. [place] lifts, holds or supports trunk or limbs, but provides less than half the effort. 2-Substantial/Maximal Assistance-helper does MORE THAN HALF the effort. [place] lifts or holds trunk or limbs and provides more than half the effort. 9-Yylwaftxx-xxzrtj does ALL the effort. Patient does none of the effort to complete the activity. Or, the assistance of 2 or more helpers is required for the patient to complete the activity. If activity was not attempted, code reason: 7-Patient Refused. 9-Not Applicable-not attempted and the patient did not perform the activity be fore the current illness, exacerbation or injury. 10-Not Attempted due to Environmental Limitations-(lack of equipment, weather restraints, etc.). 88-Not Attempted due to Medical Conditions or Safety Concerns. ADL PLOF Comments PT talked with NH, per report pt is nonambulatory at PLOF and is dependent with all bed mobility and transfers. Pt would require assistance with all ADLs. Self Care: Needed Some Help Functional Cognition: Independent OT Current Status Subjective Pt in bed, communicated minimally throughout tx. Pt guarding LUE due to humerus fx (per nursing report) Mental Status/Objective Patient Orientation: Confused Attachments: Jernigan Catheter, IV Current Upper Extremity ROM RUE WFL, LUE not tested due to reports of humerus fx. Upper Extremity Strength unable to assess due to confusion and difficulty following directions. ADL-Treatment Eating (QC): 9 (Pt currently NPO and had PEG tube prior to admission) Shower/Bathe Self (QC): 1 Upper Body Dressing (QC): 1 Lower Body Dressing (QC): 1 On/Off Footwear (QC): 1 Toileting Hygiene (QC): 1 Other Treatments Pt in bed, communicated minimally with OT during evaluation. Pt had live sitter present throughout tx. Pt able to move RUE WFL, LUE not tested due to humerus fracture. Pt had difficulty following instruction, and would require total assistance with ADLs at time of evaluation. RUE ROM performed, all planes. Post tx, pt in bed, live sitter present, all needs met. 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 2=Patient will verbalize/demonstrate understanding of assistive devices/modifications for ADL. 3=Patient will improve strength/tolerance for activity to enable patient to perform ADL's. OT Education/Plan Problem List/Assessment Assessment: No Skilled OT Needs ID'd No skilled OT services indicated at this time, as pt is dependent with all ADLs and at [facility]. D/C from OT. Discharge Recommendations Plan/Recommendations: Discharge/Goals Met Treatment Plan/Plan of Care Patient would benefit from OT for education, treatment and training to promote independence in ADL's, mobility, safety and/or upper extremity function for ADL's. Plan of Care: ADL Retraining, UE Funct Exercise/Act Treatment Duration: March 14, 2022 Frequency: 1 time per week (eval only) Rehab Potential: Guarded Time/GCodes Start Time: 09:42 Stop Time: 09:50 Total Time Billed (hr/min): 8 Billed Treatment Time 1, MEG QUILES OT March 14, 2022 10:52
[2022-03-14] MEDS ORDERED: morphine INJ 4 MG/ML 1 ML (VIAL/SYRINGE) IVP PRN (11:00)
[2022-03-14] MEDS: morphine INJ 4 MG/ML 1 ML (VIAL/SYRINGE) IVP PRN ×3 (14:07→21:11)
--- NOTE | 2022-03-14 17:40 | Progress Note - Hospitalist ---
Subjective HPI/CC On Admission Date Seen by Provider: March 14, 2022 Time Seen by Provider: 10:30 Sonja Crawford is an 86 year old female with PMH HTN, dementia, dysphagia s/p PEG placement, chronic indwelling fisher catheter, who presented with vomiting. She lives at [facility]. The day before she had pulled out her PEG and fisher. She had it replaced in the ER. Upon arrival this visit, she was found to be febrile. She is a poor historian and is unable to provide any meaningful history. Upon my exam, she reports pain in her left arm. She denies shortness of breath. She denies chest pain. She is only oriented to self. There is no family at the bedside. Subjective/Events-last exam She is oriented to self. She denies pain. She denies shortness of breath. She is unable to provide much information. She appears uncomfortable and agitated. She has family present at the bedside and her daughter was updated via phone. Focused Exam Lactate Level 03/12/22 16:45: Lactic Acid Level 1.19 Objective Exam Vital Signs Vital Signs Date Time Temp Pulse Resp B/P (MAP) Pulse Ox O2 Delivery O2 Flow Rate FiO2 03/14/22 16:20 37.5 108 22 132/58 (82) 94 Vapotherm 60.00 30.00 03/14/22 14:39 60 Capillary Refill : Less Than 3 Seconds General Appearance: Chronically ill, Moderate Distress (uncomfortable appearing), Thin Respiratory: No Respiratory Distress, Decreased Breath Sounds Cardiovascular: Regular Rate, Rhythm, No Murmur Gastrointestinal: Normal Bowel Sounds, Soft Extremity: Normal Inspection, No Pedal Edema Neurologic/Psychiatric: Alert, Disoriented Skin: Warm/Dry, Pallor Results/Procedures Lab Laboratory Tests 03/14/22 05:37 Patient resulted labs reviewed. Imaging: Reviewed Imaging Report Assessment/Plan Assessment and Plan Assess & Plan/Chief Complaint Sepsis due to pneumonia Possible aspiration pneumonia Acute respiratory failure with hypoxia UTI Poor prognosis SIRS+ with fever and leukocytosis CXR with bibasilar infiltrates concerning for pneumonia Transition to Zosyn IV fluids UA concerning for UTI Urine culture with pansensitive E coli Requiring Vapotherm Consulted palliative care Discussed possibility of hospice care on discharge, family considering Dysphagia PEG dependence Severe protein calorie malnutrition Meds per tube Dietary consulted Plan to resume tube feeds tomorrow Dementia High risk for delirium Ativan as needed for agitation Recent fall Recent subdural hematoma Recent humerus fracture Debility PT/OT signed off due to inability to participate DVT prophylaxis: Lovenox Diagnosis/Problems Diagnosis/Problems (1) Sepsis Status: Acute Qualifiers: Sepsis type: sepsis due to unspecified organism Sepsis acute organ dysfunction status: without acute organ dysfunction Qualified Codes: A41.9 - Sepsis, unspecified organism (2) PNA (pneumonia) Status: Acute (3) Acute respiratory failure with hypoxia Status: Acute (4) Urinary tract infection Status: Acute Qualifiers: Urinary tract infection type: site unspecified Hematuria presence: without hematuria Qualified Codes: N39.0 - Urinary tract infection, site not specified (5) PEG (percutaneous endoscopic gastrostomy) status Status: Chronic (6) Dysphagia Status: Chronic (7) Severe protein-calorie malnutrition Status: Chronic (8) Dementia Status: Chronic (9) Poor prognosis Status: Acute EZ SCRUGGS MD March 14, 2022 17:40
[2022-03-14] MEDS ORDERED: PIPERACILLIN SODIUM/TAZOBACTAM 4.5 GM in NS (IVPB) 100 ML IV ONE (18:00)
[2022-03-14] MEDS: FAMOTIDINE 20MG/2ML IV (PEPCID) IV SCH (20:59)
[2022-03-14] MEDS: ENOXAPARIN INJECTION 30 MG/0.3 ML SYR SC SCH (20:59)
[2022-03-15] VITALS (7 sets, daily range): BP systolic 114–157; BP diastolic 56–81
[2022-03-15] MEDS: PIPERACILLIN SODIUM/TAZOBACTAM 4.5 GM in NS (IVPB) 100 ML IV SCH ×3 (01:24→16:12)
[2022-03-15] MEDS: LACTATED RINGERS 1,000 ML IV SCH ×2 (01:25→17:01)
[2022-03-15] MEDS: RT-ALBUTEROL/IPRATROPIUM 3 ML (DUONEB) VIAL INH SCH ×6 (02:12→21:57)
--- NOTE | 2022-03-15 05:35 | Progress Note - Hospitalist ---
Subjective HPI/CC On Admission Date Seen by Provider: March 15, 2022 Time Seen by Provider: 09:00 Sonja Crawford is an 86 year old female with PMH HTN, dementia, dysphagia s/p PEG placement, chronic indwelling fisher catheter, who presented with vomiting. She lives at [facility]. The day before she had pulled out her PEG and fisher. She had it replaced in the ER. Upon arrival this visit, she was found to be febrile. She is a poor historian and is unable to provide any meaningful history. Upon my exam, she reports pain in her left arm. She denies shortness of breath. She denies chest pain. She is only oriented to self. There is no family at the bedside. Subjective/Events-last exam Pt appears to be very debilitated Had an end of life conversation yesterday per Dr. Martinez with the family Hemoglobin was 7.1 Transferring to 4th floor Pt required Vapotherm and a one on one sitter Review of Systems Neurological: Confusion Focused Exam Lactate Level Objective Exam Vital Signs Vital Signs Date Time Temp Pulse Resp B/P (MAP) Pulse Ox O2 Delivery O2 Flow Rate FiO2 03/16/22 06:15 37.2 03/16/22 03:45 105 28 128/58 (81) 95 Vapotherm 40.00 20.00 03/16/22 02:30 50 Capillary Refill : Less Than 3 Seconds General Appearance: No Apparent Distress, WD/WN, Chronically ill Respiratory: No Accessory Muscle Use, No Respiratory Distress, Decreased Breath Sounds, Other (On Vapotherm) Cardiovascular: Regular Rate, Rhythm Neurologic/Psychiatric: Disoriented Results/Procedures Lab Laboratory Tests 03/16/22 05:35 Patient resulted labs reviewed. Imaging: Reviewed Imaging Report Assessment/Plan Assessment and Plan Assess & Plan/Chief Complaint Assessment: Sepsis Pneumonia Acute respiratory failure maintain on Vapotherm UTI Severe dementia Severe poor prognosis PEG tube in place Plan: Antibiotics Vapotherm DNR Moved to fourth floor SATINDER MARRUFO DO March 15, 2022 05:35
[2022-03-15 06:03] LABS: BASOPHILS % (AUTO) 0 % (0-10); EOSINOPHILS # (AUTO) 0.1 10^3/uL (0.0-0.3); EOSINOPHILS % (AUTO) 1 % (0-10); HEMATOCRIT 22 % (35-52); HEMOGLOBIN 7.1 g/dL (11.5-16.0); LYMPHOCYTES # (AUTO) 1.2 10^3/uL (1.0-4.0); LYMPHOCYTES % (AUTO) 12 % (12-44); MEAN CORPUSCULAR HEMOGLOBIN 31 pg (25-34); MEAN CORPUSCULAR HGB CONC 32 g/dL (32-36); MEAN CORPUSCULAR VOLUME 94 fL (80-99); MEAN PLATELET VOLUME 9.7 fL (9.0-12.2); MONOCYTES # (AUTO) 0.8 10^3/uL (0.0-1.0); MONOCYTES % (AUTO) 7 % (0-12); NEUTROPHILS # (AUTO) 8.3 10^3/uL (1.8-7.8); NEUTROPHILS % (AUTO) 80 % (42-75); PLATELET COUNT 189 10^3/uL (130-400); WHITE BLOOD COUNT 10.3 10^3/uL (4.3-11.0)
[2022-03-15 06:17] LABS: ALBUMIN 2.5 GM/DL (3.2-4.5); POTASSIUM 3.8 MMOL/L (3.6-5.0)
[2022-03-15 06:18] LABS: CALCIUM 8.5 MG/DL (8.5-10.1)
[2022-03-15 06:19] LABS: TOTAL PROTEIN 5.1 GM/DL (6.4-8.2)
[2022-03-15 06:21] LABS: BILIRUBIN,TOTAL 0.7 MG/DL (0.1-1.0)
[2022-03-15 06:23] LABS: CREATININE SERUM 0.83 MG/DL (0.60-1.30)
--- NOTE | 2022-03-15 10:00 | Physical Therapy Progress Note ---
Therapy Progress Note Orders received for PT evaluation. Patient evaluated and demonstrates PLOF on 03-14-22. Discussed with Nurse, Abi, and Dr. Parnell. Both in agreement and no further PT is needed at this time. SERJIO ZUÑIGA PT March 15, 2022 10:00
[2022-03-15] MEDS: FAMOTIDINE 20MG/2ML IV (PEPCID) IV SCH (19:33)
[2022-03-15] MEDS: ENOXAPARIN INJECTION 30 MG/0.3 ML SYR SC SCH (22:12)
[2022-03-16] MEDS: PIPERACILLIN SODIUM/TAZOBACTAM 4.5 GM in NS (IVPB) 100 ML IV SCH ×3 (00:12→15:50)
[2022-03-16] MEDS: RT-ALBUTEROL/IPRATROPIUM 3 ML (DUONEB) VIAL INH SCH ×6 (02:30→22:53)
[2022-03-16 03:45] VITALS: BP 128/58
[2022-03-16] MEDS: LACTATED RINGERS 1,000 ML IV SCH ×2 (05:09→14:16)
[2022-03-16] MEDS: APAP 325 MG/10.15 ML LIQ (TYLENOL) UDC PEG PRN (05:47)
[2022-03-16 05:52] LABS: BASOPHILS % (AUTO) 0 % (0-10); EOSINOPHILS # (AUTO) 0.1 10^3/uL (0.0-0.3); EOSINOPHILS % (AUTO) 2 % (0-10); HEMATOCRIT 24 % (35-52); HEMOGLOBIN 7.6 g/dL (11.5-16.0); LYMPHOCYTES # (AUTO) 1.1 10^3/uL (1.0-4.0); LYMPHOCYTES % (AUTO) 16 % (12-44); MEAN CORPUSCULAR HEMOGLOBIN 30 pg (25-34); MEAN CORPUSCULAR HGB CONC 31 g/dL (32-36); MEAN CORPUSCULAR VOLUME 96 fL (80-99); MEAN PLATELET VOLUME 9.8 fL (9.0-12.2); MONOCYTES # (AUTO) 0.7 10^3/uL (0.0-1.0); MONOCYTES % (AUTO) 11 % (0-12); NEUTROPHILS # (AUTO) 4.8 10^3/uL (1.8-7.8); NEUTROPHILS % (AUTO) 71 % (42-75); PLATELET COUNT 220 10^3/uL (130-400); WHITE BLOOD COUNT 6.8 10^3/uL (4.3-11.0)
[2022-03-16 06:05] LABS: ALBUMIN 2.6 GM/DL (3.2-4.5); POTASSIUM 3.9 MMOL/L (3.6-5.0)
[2022-03-16 06:06] LABS: CALCIUM 8.7 MG/DL (8.5-10.1)
[2022-03-16 06:07] LABS: TOTAL PROTEIN 5.4 GM/DL (6.4-8.2)
[2022-03-16 06:09] LABS: BILIRUBIN,TOTAL 0.6 MG/DL (0.1-1.0)
[2022-03-16 06:11] LABS: CREATININE SERUM 0.79 MG/DL (0.60-1.30)
--- NOTE | 2022-03-16 06:31 | Progress Note - Hospitalist ---
Subjective HPI/CC On Admission Date Seen by Provider: March 16, 2022 Time Seen by Provider: 11:00 Sonja Crawford is an 86 year old female with PMH HTN, dementia, dysphagia s/p PEG placement, chronic indwelling fisher catheter, who presented with vomiting. She lives at [facility]. The day before she had pulled out her PEG and fisher. She had it replaced in the ER. Upon arrival this visit, she was found to be febrile. She is a poor historian and is unable to provide any meaningful history. Upon my exam, she reports pain in her left arm. She denies shortness of breath. She denies chest pain. She is only oriented to self. There is no family at the bedside. Subjective/Events-last exam Pt is about the same PEG tube feeding maintained Antibiotics maintained Pt needs to [facility] hospice at [facility] Review of Systems Neurological: Confusion Objective Exam Vital Signs Vital Signs Date Time Temp Pulse Resp B/P (MAP) Pulse Ox O2 Delivery O2 Flow Rate FiO2 03/17/22 02:59 96 Nasal Cannula 4.00 03/17/22 00:00 37.3 105 20 153/81 (105) 03/16/22 08:00 40 Capillary Refill : Less Than 3 Seconds General Appearance: No Apparent Distress, WD/WN, Chronically ill, Thin Respiratory: Lungs Clear Cardiovascular: Regular Rate, Rhythm Neurologic/Psychiatric: Alert, Disoriented Results/Procedures Lab Laboratory Tests 03/16/22 05:35 Patient resulted labs reviewed. Imaging: Reviewed Imaging Report Assessment/Plan Assessment and Plan Assess & Plan/Chief Complaint Assessment: Sepsis Pneumonia Acute respiratory failure maintain on Vapotherm UTI Severe dementia Severe poor prognosis PEG tube in place Plan: Antibiotics Vapotherm DNR Moved to fourth floor 03/16/2022: Supportive care Move to [facility] tomorrow? Needs hospice but daughter wants skilled SATINDER MARRUFO DO March 16, 2022 06:31
[2022-03-16 07:10] VITALS: BP 136/62
[2022-03-16 11:47] VITALS: BP 136/62
[2022-03-16 15:16] VITALS: BP 164/72
[2022-03-16 19:06] VITALS: BP 170/77
[2022-03-16] MEDS: FAMOTIDINE 20MG/2ML IV (PEPCID) IV SCH (20:26)
[2022-03-16] MEDS: morphine INJ 4 MG/ML 1 ML (VIAL/SYRINGE) IVP PRN (21:58)
[2022-03-16] MEDS: ENOXAPARIN INJECTION 30 MG/0.3 ML SYR SC SCH (21:58)
[2022-03-17] VITALS: BP 153/81
[2022-03-17] MEDS: PIPERACILLIN SODIUM/TAZOBACTAM 4.5 GM in NS (IVPB) 100 ML IV SCH ×2 (00:07→08:11)
[2022-03-17] MEDS: LACTATED RINGERS 1,000 ML IV SCH ×2 (00:08→08:11)
[2022-03-17] MEDS: RT-ALBUTEROL/IPRATROPIUM 3 ML (DUONEB) VIAL INH SCH ×3 (02:56→10:56)
[2022-03-17 07:38] LABS: BASOPHILS % (AUTO) 0 % (0-10); EOSINOPHILS # (AUTO) 0.2 10^3/uL (0.0-0.3); EOSINOPHILS % (AUTO) 3 % (0-10); HEMATOCRIT 24 % (35-52); HEMOGLOBIN 7.5 g/dL (11.5-16.0); LYMPHOCYTES # (AUTO) 1.3 10^3/uL (1.0-4.0); LYMPHOCYTES % (AUTO) 19 % (12-44); MEAN CORPUSCULAR HEMOGLOBIN 30 pg (25-34); MEAN CORPUSCULAR HGB CONC 32 g/dL (32-36); MEAN CORPUSCULAR VOLUME 94 fL (80-99); MEAN PLATELET VOLUME 9.4 fL (9.0-12.2); MONOCYTES # (AUTO) 0.8 10^3/uL (0.0-1.0); MONOCYTES % (AUTO) 12 % (0-12); NEUTROPHILS # (AUTO) 4.4 10^3/uL (1.8-7.8); NEUTROPHILS % (AUTO) 65 % (42-75); PLATELET COUNT 209 10^3/uL (130-400); WHITE BLOOD COUNT 6.8 10^3/uL (4.3-11.0)
[2022-03-17 07:52] LABS: ALBUMIN 2.4 GM/DL (3.2-4.5); POTASSIUM 3.7 MMOL/L (3.6-5.0)
[2022-03-17 07:54] LABS: CALCIUM 8.4 MG/DL (8.5-10.1)
[2022-03-17 07:55] LABS: TOTAL PROTEIN 5.1 GM/DL (6.4-8.2)
[2022-03-17 07:57] LABS: BILIRUBIN,TOTAL 0.5 MG/DL (0.1-1.0)
[2022-03-17 07:59] LABS: CREATININE SERUM 0.77 MG/DL (0.60-1.30)
[2022-03-17 08:20] VITALS: BP 140/74
[2022-03-17] MEDS ORDERED: OXYC5SOL19 GT (11:13)
[2022-03-17] MEDS ORDERED: AMLO-250 PO (11:13)
[2022-03-17] MEDS ORDERED: DOXA1TAB2 PO (11:13)
[2022-03-17] MEDS ORDERED: ASPI-999 PO (11:13)
--- NOTE | 2022-03-17 11:15 | Discharge Summary ---
Discharge Summary Hospital Course Was the Problem List Reviewed?: Yes Problems/Dx: (1) Sepsis Status: Acute Qualifiers: Qualified Codes: A41.9 - Sepsis, unspecified organism (2) PNA (pneumonia) Status: Acute (3) Acute respiratory failure with hypoxia Status: Acute (4) Urinary tract infection Status: Acute Qualifiers: Qualified Codes: N39.0 - Urinary tract infection, site not specified (5) PEG (percutaneous endoscopic gastrostomy) status Status: Chronic (6) Dysphagia Status: Chronic (7) Severe protein-calorie malnutrition Status: Chronic (8) Dementia Status: Chronic (9) Poor prognosis Status: Acute Hospital Course Date of Admission: March 12, 2022 at 19:21 Admission Diagnosis : Family Physician/Provider: Trey Holliday DO Date of Discharge: 03/17/22 Discharge Diagnosis: Status post UTI, dementia, PEG tube Hospital Course: Pt had a lengthy hospital course after she was admitted for nausea, vomiting, and UTI. Pt was found to have a PEG tube placed and maintained. She had profound dementia. Acquired one on one sitter and anti psychotics. Pt completed antibiotics and was deemed stable for senior living discharge. Overall poor prognosis remains. Labs and Pending Lab Test: Laboratory Tests 03/17/22 07:29: White Blood Count 6.8, Red Blood Count 2.53L, Hemoglobin 7.5L, Hematocrit 24L, Mean Corpuscular Volume 94, Mean Corpuscular Hemoglobin 30, Mean Corpuscular Hemoglobin Concent 32, Red Cell Distribution Width 15.0H, Platelet Count 209, Mean Platelet Volume 9.4, Immature Granulocyte % (Auto) 1, Neutrophils (%) (Auto) 65, Lymphocytes (%) (Auto) 19, Monocytes (%) (Auto) 12, Eosinophils (%) (Auto) 3, Basophils (%) (Auto) 0, Neutrophils # (Auto) 4.4, Lymphocytes # (Auto) 1.3, Monocytes # (Auto) 0.8, Eosinophils # (Auto) 0.2, Basophils # (Auto) 0.0, Immature Granulocyte # (Auto) 0.1, Sodium Level 139, Potassium Level 3.7, Chloride Level 104, Carbon Dioxide Level 26, Anion Gap 9, Blood Urea Nitrogen 16, Creatinine 0.77, Estimat Glomerular Filtration Rate 75, BUN/Creatinine Ratio 21, Glucose Level 132H, Calcium Level 8.4L, Corrected Calcium 9.7, Total Bilirubin 0.5, Aspartate Amino Transf (AST/SGOT) 17, Alanine Aminotransferase (ALT/SGPT) 18, Alkaline Phosphatase 69, Total Protein 5.1L, Albumin 2.4L Microbiology 03/12/22 Urine Culture - Final, Complete Escherichia coli 03/12/22 Blood Culture - Preliminary, Resulted No growth Home Meds Active Doxazosin Mesylate 1 Mg Tablet 1 Mg PO DAILY Aspirin 81 Mg Tab.chew 81 Mg PO DAILY Amlodipine Besylate 5 Mg Tablet 5 Mg PO DAILY HOLD IF SBP <100 OR PULSE LESS 60 Oxycodone HCl 5 Mg/5 Ml Solution 5 Ml GT Q4H PRN Reported Acetaminophen 325 Mg/10.15 Ml Soln 10.15 Ml PO Q6H PRN Vitamin D3 (Cholecalciferol (Vitamin D3)) 125 Mcg (5000 Unit) Capsule 125 Mcg PO DAILY Multivitamin 1 Each Tablet 1 Each PO DAILY Polytrim Eye Drops (Polymyxin B Sulf/Trimethoprim) 10,000 Unit-1 Mg/Ml Drops 1 Drop OU TID Senna Plus Tablet (Sennosides/Docusate Sodium) 8.6 Mg-50 Mg Tablet 1 Each PO BID Refresh Tears (Carboxymethylcellulose Sodium) 0.5 % Drops 1 Drop OU DAILY Quetiapine Fumarate 25 Mg Tablet 25 Mg PO HS Seroquel (Quetiapine Fumarate) 25 Mg Tablet 12.5 Mg PO Q6H PRN TAKES OF A 25MG Miralax (Polyethylene Glycol 3350) 17 Gram Powd.pack 17 Gm PO HS Fish Oil 1,200 mg Softgel ([place]-3 Fatty Acids/Fish Oil) 360 Mg-1,200 Mg Capsule 1 Each PO DAILY Alendronate Sodium 70 Mg Tablet 70 Mg PO SUN Assessment/Pt Instructions shelter rounds Discharge Planning: <30 minutes discharge planning Discharge Instructions Discharge Diet: Tube Feeding Activity as Tolerated: Yes Discharge Physical Examination Vital Signs Vital Signs Date Time Temp Pulse Resp B/P (MAP) Pulse Ox O2 Delivery O2 Flow Rate FiO2 03/17/22 10:56 92 Nasal Cannula 1.00 03/17/22 08:20 37.0 90 20 140/74 (96) 03/16/22 08:00 40 General Appearance: No Apparent Distress, WD/WN, Chronically ill Allergies: Coded Allergies: melatonin (Verified Allergy, Unknown, 03/12/22) quetiapine (Verified Adverse Reaction, Unknown, 2/11/19) confusion Discharge Summary Date of Admission March 12, 2022 at 19:21 Date of Discharge Discharge Date: March 17, 2022 Admission Diagnosis Sepsis due to pneumonia Comfort Measures/ End of Life Care: Pallative Care Discharge Diagnosis Assessment: Sepsis Pneumonia Acute respiratory failure maintain on Vapotherm UTI Severe dementia Severe poor prognosis PEG tube in place Plan: Antibiotics Vapotherm DNR Moved to fourth floor 03/16/2022: Supportive care Move to [facility] tomorrow? Needs hospice but daughter wants skilled (1) Sepsis Status: Acute Qualifiers: Qualified Codes: A41.9 - Sepsis, unspecified organism (2) PNA (pneumonia) Status: Acute (3) Acute respiratory failure with hypoxia Status: Acute (4) Urinary tract infection Status: Acute Qualifiers: Qualified Codes: N39.0 - Urinary tract infection, site not specified (5) PEG (percutaneous endoscopic gastrostomy) status Status: Chronic (6) Dysphagia Status: Chronic (7) Severe protein-calorie malnutrition Status: Chronic (8) Dementia Status: Chronic (9) Poor prognosis Status: Acute SATINDER MARRUFO DO March 17, 2022 11:15
--- NOTE | 2022-03-17 11:15 | Discharge Inst-Skilled Nursing ---
Discharge Inst-Skilled NF Reconcile Patient Problems Problems Reviewed?: Yes Chief Complaint Sonja Crawford is an 86 year old female with PMH HTN, dementia, dysphagia s/p PEG placement, chronic indwelling fisher catheter, who presented with vomiting. She lives at [facility]. The day before she had pulled out her PEG and fisher. She had it replaced in the ER. Upon arrival this visit, she was found to be febrile. She is a poor historian and is unable to provide any meaningful history. Upon my exam, she reports pain in her left arm. She denies shortness of breath. She denies chest pain. She is only oriented to self. There is no family at the bedside. Patient Instructions Patient Problems: [place] UTI Consult/Follow Up/Orders Follow Up Appt.: pcp nh rounds Skilled NF Admit to: [facility] Certification (SNF) I certify that SNF services are required to be given on an inpatient basis because of the above named patient's need for detention care on a continuing basis for the conditions(s) for which he/she was receiving inpatient hospital services prior to his/her transfer to the SNF. Correction Facility Order: Nursing Services, Planner Chief-Evaluate & Treat, Physical Therapy-Evaluate & Treat, Speech Language-Evaluate & Treat Oxygen Delivery Method: Nasal Cannula Resuscitation Status: Do Not Resuscitate Type of Care: Pallative Care New & Resume Previous Orders Continued Medications: Acetaminophen (Acetaminophen) 325 Mg/10.15 Ml Soln 10.15 ML PO Q6H PRN for PAIN-MILD (1-4), EA Alendronate Sodium (Alendronate Sodium) 70 Mg Tablet 70 MG PO FRI, TAB Amlodipine Besylate (Amlodipine Besylate) 5 Mg Tablet 5 MG PO DAILY, #30 TAB (This prescription has been renewed) HOLD IF SBP <100 OR PULSE LESS 60 Aspirin (Aspirin) 81 Mg Tab.chew 81 MG PO DAILY, #30 TAB (This prescription has been renewed) Carboxymethylcellulose Sodium (Refresh Tears) 0.5 % Drops 1 DROP OU DAILY, DROPS Cholecalciferol (Vitamin D3) (Vitamin D3) 125 Mcg (5000 Unit) Capsule 125 MCG PO DAILY, CAP Doxazosin Mesylate (Doxazosin Mesylate) 1 Mg Tablet 1 MG PO DAILY, #30 TAB (This prescription has been renewed) Multivitamin (Multivitamin) 1 Each Tablet 1 EACH PO DAILY, TAB Oxycodone HCl (Oxycodone HCl) 5 Mg/5 Ml Solution 5 ML GT Q4H PRN for PAIN-SEVERE (8-10), #60 ML (This prescription has been renewed) Polyethylene Glycol 3350 (Miralax) 17 Gram Powd.pack 17 GM PO HS, EACH Polymyxin B Sulf/Trimethoprim (Polytrim Eye Drops) 10,000 Unit-1 Mg/Ml Drops 1 DROP OU TID, DROPS Sennosides/Docusate Sodium (Senna Plus Tablet) 8.6 Mg-50 Mg Tablet 1 EACH PO BID, TAB Discontinued Medications: Glendo-3 Fatty Acids/Fish Oil (Fish Oil 1,200 mg Softgel) 360 Mg-1,200 Mg Capsule 1 EACH PO DAILY, CAP Quetiapine Fumarate (Seroquel) 25 Mg Tablet 12.5 MG PO Q6H PRN for ANTIPSYCHOTIC DEPRESSION, TAB TAKES OF A 25MG Quetiapine Fumarate (Quetiapine Fumarate) 25 Mg Tablet 25 MG PO HS, TAB Fariha Parnell March 17, 2022 11:14 FARIHA PARNELL DO March 17, 2022 11:15
[2022-03-17 11:31] VITALS: BP 134/62
[2022-03-17 15:02] VITALS: BP 185/84
[2022-03-17 15:50] VITALS: BP 185/84
== END 2022-03-17 15:52 | DRG 871 ==
LOC: EDUNIT# 16:21 → ER 16:23 → CSD 19:21 → 4TH 03-15 11:53
PROVIDERS: ADMIT Family Medicine; ATTEND Internal Medicine
PROC: 5A0935A Assistance with Respiratory Ventilation, Less than 24 Consecutive Hours, High Flow/Velocity Cannula (ICD-10-PCS; principal; 2022-03-16)
DX: A41.9 Sepsis, unspecified organism (principal); J18.9 Pneumonia, unspecified organism; J96.01 Acute respiratory failure with hypoxia; E43 Unspecified severe protein-calorie malnutrition; N39.0 Urinary tract infection, site not specified; Z68.1 Body mass index [BMI] 19.9 or less, adult; Z93.1 Gastrostomy status; R13.10 Dysphagia, unspecified; F03.90 Unspecified dementia, unspecified severity, without behavioral disturbance, psychotic disturbance, mood disturbance, and anxiety; Z51.5 Encounter for palliative care; Z66 Do not resuscitate; I10 Essential (primary) hypertension; M10.9 Gout, unspecified; E05.90 Thyrotoxicosis, unspecified without thyrotoxic crisis or storm; R53.81 Other malaise; Z20.822 Contact with and (suspected) exposure to COVID-19
CPT/HCPCS: 36415; 49465; 71045; 80048; 80053; 81000; 82607; 82728; 82746; 83540; 83550; 83605; 83690; 84145; 85007; 85025; 85027; 85610; 85730; 86141; 87040; 87077; 87088; 87186; 87636; 94640; 94760

== ENCOUNTER → 2022-04-03 | Outpatient (CLI) | payer MEDICARE, OTHER, MEDICAID ==
[~2022-04-03] MED LIST changes: +AC160U10 PO; +ALEN70TA80 PO; +ASPI-999 PO; +CARB15DR OU; +CHOL500050 PO; +DOXA1TAB2 PO; +MULT-1136 PO; +OMEG-109 PO; +OXYC5SOL19 GT; +POLY10DR OU; +POLY17PO6 PO; +QUET25TA PO; +QUET25TA35 PO; +SENN1TAB67 PO
--- NOTE | 2022-04-03 11:05 | Diagnostic Imaging Report ---
INDICATION: Dysphagia. TECHNIQUE: The procedure was performed in conjunction with Speech Pathology. Video fluoroscopy was performed during the swallowing of barium in multiple consistencies. A total of 1.3 minutes of fluoroscopic time was utilized. FINDINGS: The patient ingested thin barium as well as nectar and honey consistencies. The patient also ingested applesauce consistency. There was deep laryngeal penetration during the swallowing of thin barium as well as the nectar and honey consistencies. Honey consistency penetration was seen during the second swallow and was felt to most likely arise from residue within the valleculae. Applesauce consistency was without evidence of penetration or aspiration. IMPRESSION: Abnormal video swallow demonstrating penetration during the swallowing of thin, nectar, and honey thickened consistencies. Penetration was noted to the level of the cords. No definite aspiration was visualized. Dictated by: Dictated on workstation # [id number]
== END ==
LOC: RAD 09:24
PROVIDERS: ATTEND Internal Medicine
DX: R13.12 Dysphagia, oropharyngeal phase (principal)
CPT/HCPCS: 74230

== ENCOUNTER 2022-05-11 13:08 | Emergency (ER) | payer MEDICARE, OTHER, MEDICAID ==
[~2022-05-11] VITALS: Ht 162 cm; Wt 56.6 kg
--- NOTE | 2022-05-11 13:18 | ED Fall/Injury ---
General Stated Complaint: FALL Source: patient Exam Limitations: no limitations History of Present Illness Date Seen by Provider: May 11, 2022 Time Seen by Provider: 13:14 Initial Comments Patient is a 86-year-old female who presents ED for fall. Patient is a resident at [facility]. Patient is evaluated for a unwitnessed fall. Patient states she was attempting to get out of her bed. Patient has bruising above her left eye and left upper arm. Patient has no current complaints but did complain of shoulder pain and head pain to staff. Patient was not placed in c-collar. She has no cervical midline tenderness. She has a superficial skin abrasion to the left periorbit and abrasion to left lateral elbow. According to EMS and staff at [facility] she is at her current mentation. Patient does not appear to be on a blood thinner. Patient is able to ambulate with assistance of but needs assistance to get out of bed. Patient does have a feeding tube. No fever, cough, vomiting, diarrhea, visual changes. Chronic weakness Allergies and Home Medications Allergies Coded Allergies: melatonin (Verified Allergy, Unknown, 03/12/22) quetiapine (Verified Adverse Reaction, Unknown, 12/02/18) confusion Patient Home Medication List Home Medication List Reviewed: Yes Acetaminophen (Acetaminophen) 325 Mg/10.15 Ml Soln, 10.15 ML PO Q6H PRN for PAIN-MILD (1-4), (Reported) Entered as Reported by: JANAK RAHMAN on 03/14/22850 Alendronate Sodium (Alendronate Sodium) 70 Mg Tablet, 70 MG PO SUN, (Reported) Entered as Reported by: JANAK RAHMAN on 03/14/22850 Amlodipine Besylate (Amlodipine Besylate) 5 Mg Tablet, 5 MG PO DAILY Prescribed by: SATINDER MARRUFO on 03/17/22 111 Aspirin (Aspirin) 81 Mg Tab.chew, 81 MG PO DAILY Prescribed by: SATINDER MARRUFO on 03/17/22 111 Carboxymethylcellulose Sodium (Refresh Tears) 0.5 % Drops, 1 DROP OU DAILY, (Reported) Entered as Reported by: JANAK RAHMAN on 03/14/22 08 Cholecalciferol (Vitamin D3) (Vitamin D3) 125 Mcg (5000 Unit) Capsule, 125 MCG PO DAILY, (Reported) Entered as Reported by: JANAK RAHMAN on 03/14/22850 Doxazosin Mesylate (Doxazosin Mesylate) 1 Mg Tablet, 1 MG PO DAILY Prescribed by: SATINDER MARRUFO on 03/17/22 111 Multivitamin (Multivitamin) 1 Each Tablet, 1 EACH PO DAILY, (Reported) Entered as Reported by: JANAK RAHMAN on 03/14/22850 Oxycodone HCl (Oxycodone HCl) 5 Mg/5 Ml Solution, 5 ML GT Q4H PRN for PAIN- SEVERE (8-10) Prescribed by: SATINDER MARRUFO on 03/17/22 111 Polyethylene Glycol 3350 (Miralax) 17 Gram Powd.pack, 17 GM PO HS, (Reported) Entered as Reported by: JANAK RAHMAN on 03/14/22850 Polymyxin B Sulf/Trimethoprim (Polytrim Eye Drops) 10,000 Unit-1 Mg/Ml Drops, 1 DROP OU TID, (Reported) Entered as Reported by: JANAK RAHMAN on 03/14/22850 Sennosides/Docusate Sodium (Senna Plus Tablet) 8.6 Mg-50 Mg Tablet, 1 EACH PO BID, (Reported) Entered as Reported by: JANAK RAHMAN on 03/14/22850 Review of Systems Review of Systems Constitutional: No chills, No diaphoresis Eyes: Denies Blurred Vision, Denies Drainage, Denies Decreased Acuity Ears, Nose, Mouth, Throat: denies ear pain, denies ear discharge Respiratory: No cough, No dyspnea on exertion Cardiovascular: No chest pain Gastrointestinal: No abdominal pain, No diarrhea, No nausea, No vomiting Musculoskeletal: No back pain; joint pain, muscle pain Skin: change in color All Other Systems Reviewed Negative Unless Noted: Yes Past Iiyoojv-Iuqvex-Excgxp Hx Immunizations Up To Date Tetanus Booster (TDap): Unknown PED Vaccines UTD: No First/Initial COVID19 Vaccinat: YES Second COVID19 Vaccination Theo: YES Third COVID19 Vaccination Date: YES Seasonal Allergies Seasonal Allergies: No Past Medical History Surgeries: Yes Abdominal Respiratory: No Currently Using CPAP: No Currently Using BIPAP: No Cardiac: Yes (SEES DR. MOTTA UNSURE WHY) Hypertension Neurological: Yes Dementia Reproductive Disorders: No Female Reproductive Disorders: Denies Sexually Transmitted Disease: No HIV/AIDS: No Genitourinary: Yes UTI-Chronic Gastrointestinal: No Musculoskeletal: Yes Fractures, Gout Endocrine: Yes Hyperthyroidism HEENT: Yes Cataract Loss of Vision: Denies Hearing Impairment: Hard of Hearing Cancer: No Psychosocial: No Integumentary: No Recent Skin Changes Blood Disorders: No Adverse Reaction/Blood Tranf: No Family Medical History Dementia G8 SISTER Diabetes mellitus 19 FATHER No Pertinent Family Hx, Diabetes, Psychiatric Problems Physical Exam Vital Signs Vital Signs - First Documented Capillary Refill : Height, Weight, BMI Height: 5'4.00" Weight: 117lbs. 8.0oz. 53.383966az; 18.06 BMI Method:Stated General Appearance: WD/WN, no apparent distress HEENT: PERRL/EOMI, normal ENT inspection, TMs normal, pharynx normal, other (Swelling and skin abrasion to the left upper lateral periorbit.) Neck: non-tender, full range of motion, supple Cardiovascular: regular rate, rhythm, no edema, no gallop Respiratory: chest non-tender, lungs clear, normal breath sounds, no respiratory distress, no accessory muscle use Gastrointestinal: normal bowel sounds, non tender, soft, no organomegaly Back: normal inspection, no CVA tenderness, no vertebral tenderness Extremities: normal range of motion, other (Abrasion to left lateral elbow. No arm tenderness. Decreased range of motion of the upper extremities. Medical Review Coordinator strength 5 out of 5. No bruising, swelling or tenderness to the lower extremity.) Skin: ecchymosis (Left lateral periorbit.) Austin Coma Score Best Eye Response: (4) Open Spontaneously Best Verbal Response: (4) Confused Conversation Best Motor Response: (6) Obeys Commands Elda Total: 14 Procedures/Interventions Suture Size: 5-0 Progress/Results/Core Measures Results/Orders My Orders Orders - JOSEMANUEL VALERIO Ct Head/Face/Cervical Wo (05/11/22 13:13) Shoulder, Left, 3 Views (05/11/22 13:13) Elbow, Left, 3 Views (05/11/22 13:13) Vital Signs/I&O 05/11/22 05/11/22 13:08 13:08 Temp 36.7 36.7 Pulse 78 78 Resp 14 14 B/P (MAP) 135/93 (107) 135/93 (107) Pulse Ox 100 100 O2 Delivery Room Air Room Air Departure Communication (PCP) Unwitnessed fall out of bed. Was found on the floor. She has a contusion with a small skin abrasion to the left periorbit. No sutures needed. XR movements intact. Patient baseline mentation is confusion. She was able to respond to some mild pain to the left arm. She has a small skin tear to her left lateral elbow. She has no significant pain on palpation. History of left humerus fracture currently being managed on conservatively. She did have a subtle lucency through the proximal ulna cannot rule out fracture. Patient would not tolerate splint or sling. Recommend sling for comfort and to follow-up with orthopedic in 7 to 10 days for reevaluation. This will also be treated conservatively if fracture. CT scan of the head, face and cervical neck was unremarkable. She has no other current baseline. Was able to respond to some questions. According to staff she is at her current normal mentation. Has been eating fine at home. No cough, fever, increased confusion, diarrhea, vomiting. Patient will be discharged back to the [facility]. Impression Primary Impression: Facial injury Additional Impression: Arm pain Disposition: 01 HOME, SELF-CARE Condition: Stable Departure-Patient Inst. Decision time for Depature: 14:28 Referrals: GREER RAI MD, WILLIAM J DO (PCP/Family) Primary Care Physician Patient Instructions: Contusion (DC), Shoulder Pain ED Add. Discharge Instructions: Subacute fracture of the left humerus. Possible lucency to the left proximal ulna cannot rule out a subtle fracture. Orthopedic outpatient follow-up in 7 to 10 days for reevaluation. JOSEMANUEL VALERIO May 11, 2022 13:18
--- NOTE | 2022-05-11 14:14 | Diagnostic Imaging Report ---
Indication: Left shoulder pain AP, oblique, and transscapular views of the left shoulder are obtained and compared to 02/21/2022. Compared to the prior study, there is some ongoing healing of the patient's proximal humeral fracture. There is moderate displacement of fracture fragments noted on the lateral view. Some callus formation is compatible with ongoing healing, the alignment is improved compared to 02/21/2022 however. Impression: A subacute fracture of left proximal humerus with signs of ongoing healing, there is improved alignment compared to 02/21/2022 with some residual mild displacement. Dictated by: Dictated on workstation # [id number]
--- NOTE | 2022-05-11 14:15 | Diagnostic Imaging Report ---
INDICATION: 86-year-old female, status post fall, nonverbal but with abrasion and pain. TECHNIQUE: 3 views of the left elbow CORRELATION STUDY: None FINDINGS: Suboptimal positioning. Very questionable lucency along the most medial aspect of the proximal ulna which a subtle nondisplaced fracture is not excluded. Radial head unremarkable. Overall alignment grossly anatomic. No abnormal joint effusion. IMPRESSION: 1. Suspect nondisplaced fracture at the medial aspect proximal ulna. Remainder of the osseous structures otherwise intact and normal alignment. Dictated by: Dictated on workstation # [id number]
--- NOTE | 2022-05-11 14:18 | Diagnostic Imaging Report ---
INDICATION: Fall with injury to head, neck and facial pain. TECHNIQUE: Multiple contiguous axial images were obtained through the head, neck, and facial bones without the use of intravenous contrast. Sagittal and coronal reformations through the cervical spine and facial bones were also performed. Auto Exposure Controls were utilized during the CT exam to meet ALARA standards for radiation dose reduction. COMPARISON is made with 02/21/2022 CTA HEAD FINDINGS: There are diffuse atrophic changes and chronic ischemic changes in the deep white matter. There is no acute intracranial hemorrhage or subdural or epidural collection. 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 There is no acute appearing intracranial finding. Calvarial windows were unremarkable. CT MAXILLOFACIAL FINDINGS: There is retention cyst or polyp in the right frontal sinus. Remaining sinuses are well-aerated. There is no acute fracture of the facial bones. Orbital contents are unremarkable. CT CERVICAL SPINE FINDINGS: No fracture or acute bony abnormality is seen. There are diffuse degenerative changes throughout the facet joints. There is slight anterolisthesis of C4 on C5 and slight retrolisthesis of C5 on C6. IMPRESSION: CT brain shows extensive chronic changes as above with no acute intracranial abnormality or calvarial fracture. CT maxillofacial demonstrates no facial fracture. There is incidental retention cyst or polyp in the right frontal sinus. CT cervical spine shows degenerative findings as described above with no acute abnormality. Dictated by: Dictated on workstation # [id number]
[2022-05-11 15:29] VITALS: BP 120/57
== END 2022-05-11 15:29 | disposition home or self-care (01) ==
LOC: EDUNIT# 13:08 → ER 13:10
DX: S51.012A Laceration without foreign body of left elbow, initial encounter (principal); S05.12XA Contusion of eyeball and orbital tissues, left eye, initial encounter; W06.XXXA Fall from bed, initial encounter
CPT/HCPCS: 70450; 70486; 72125; 73030; 73080

== ENCOUNTER → 2022-05-26 | Outpatient (CLI) | payer MEDICARE, OTHER, MEDICAID ==
--- NOTE | 2022-05-26 10:38 | Diagnostic Imaging Report ---
INDICATION: Elbow pain COMPARISON: 05/11/2022 TECHNIQUE: 3 radiographs of the left elbow dated 05/26/2022 FINDINGS: No acute fracture or dislocation. No destructive osseous process. No elbow joint effusion. Small olecranon enthesophytes. No suspicious radiopaque foreign body. No healing fracture. IMPRESSION: No acute osseous abnormality. No healing fracture identified. In particular, previously suspected medial proximal ulnar fracture is not definitively demonstrated. Dictated by: Dictated on workstation # [id number]
== END ==
LOC: ORTHO 08:23
PROVIDERS: ATTEND Orthopaedic Surgery
DX: M25.522 Pain in left elbow (principal)
CPT/HCPCS: 73080

== ENCOUNTER → 2022-05-26 | Outpatient (CLI) | payer MEDICARE, OTHER, MEDICAID ==
--- NOTE | 2022-05-26 13:26 | Diagnostic Imaging Report ---
INDICATION: Dysphagia. TECHNIQUE: The study was performed in conjunction with Speech Pathology. Video fluoroscopy was performed during the swallowing of barium at multiple consistencies. Patient ingested nectar, applesauce, banana, cracker, as well as thin liquid consistencies. A total of 4.2 minutes of fluoroscopic time was utilized. FINDINGS: No laryngeal penetration or aspiration was observed. There is normal epiglottic tilt and laryngeal elevation. There is moderate vallecular residue present; however, this did clear with a second swallow. IMPRESSION: Moderate residue, as described. No penetration or aspiration was observed. Dictated by: Dictated on workstation # [id number]
== END ==
LOC: RAD 10:12
PROVIDERS: ATTEND Nurse Practitioner Gerontology
DX: R13.19 Other dysphagia (principal)
CPT/HCPCS: 74230

== ENCOUNTER → 2022-05-30 | Outpatient (CLI) | payer MEDICARE, OTHER, MEDICAID | LOC: ORTHO 09:30 | PROVIDERS: ATTEND Orthopaedic Surgery | DX: M25.512 Pain in left shoulder (principal) | CPT/HCPCS: 20610; G0463 ==

== ENCOUNTER 2022-08-22 02:37 | Inpatient (IN) | payer MEDICARE, OTHER, MEDICAID ==
[2022-08-22] VITALS (10 sets, daily range): BP systolic 126–175; BP diastolic 63–93
[~2022-08-22] VITALS: Ht 157 cm; Wt 46.0 kg
[~2022-08-22 02:37] MED LIST changes: -PLTR10OP; +POLY10DR31
--- NOTE | 2022-08-22 03:01 | ED GI ---
General Chief Complaint: Abdominal/GI Problems Stated Complaint: VOMITING BLACK LIQUID Source of Information: EMS History of Present Illness Date Seen by Provider: Aug 22, 2022 Time Seen by Provider: 02:50 Initial Comments 86-year-old female presents wanting nursing facility via EMS. Nursing staff say she has had brown vomit and brown residuals in her feeding tube for last couple of days. She had x-rays which were reportedly negative. She is also had labs which were reportedly normal. The patient is nonverbal so unable to obtain a history from her. She is not on any blood thinning medications per her records reviewed Allergies and Home Medications Allergies Coded Allergies: melatonin (Verified Allergy, Unknown, 03/12/22) quetiapine (Verified Adverse Reaction, Unknown, 12/02/18) confusion Patient Home Medication List Home Medication List Reviewed: Yes Acetaminophen (Acetaminophen) 325 Mg/10.15 Ml Soln, 10.15 ML PO Q6H PRN for PAIN-MILD (1-4), (Reported) Entered as Reported by: JANAK RAHMAN on 03/14/22 0851 Alendronate Sodium (Alendronate Sodium) 70 Mg Tablet, 70 MG PO SUN, (Reported) Entered as Reported by: JANAK RAHMAN on 03/14/22 0851 Amlodipine Besylate (Amlodipine Besylate) 5 Mg Tablet, 5 MG PO DAILY Prescribed by: SATINDER MARRUFO on 03/17/22 111 Aspirin (Aspirin) 81 Mg Tab.chew, 81 MG PO DAILY Prescribed by: SATINDER MARRUFO on 03/17/22 111 Carboxymethylcellulose Sodium (Refresh Tears) 0.5 % Drops, 1 DROP OU DAILY, (Reported) Entered as Reported by: JANAK RAHMAN on 03/14/22 08 Cholecalciferol (Vitamin D3) (Vitamin D3) 125 Mcg (5000 Unit) Capsule, 125 MCG PO DAILY, (Reported) Entered as Reported by: JANAK RAHMAN on 03/14/22 0851 Doxazosin Mesylate (Doxazosin Mesylate) 1 Mg Tablet, 1 MG PO DAILY Prescribed by: SATINDER MARRUFO on 03/17/22 111 Multivitamin (Multivitamin) 1 Each Tablet, 1 EACH PO DAILY, (Reported) Entered as Reported by: JANAK RAHMAN on 03/14/22 0851 Oxycodone HCl (Oxycodone HCl) 5 Mg/5 Ml Solution, 5 ML GT Q4H PRN for PAIN- SEVERE (8-10) Prescribed by: SATINDER MARRUFO on 03/17/22 1114 Polyethylene Glycol 3350 (Miralax) 17 Gram Powd.pack, 17 GM PO HS, (Reported) Entered as Reported by: JANAK RAHMAN on 03/14/22 0851 Polymyxin B Sulf/Trimethoprim (Polytrim Eye Drops) 10,000 Unit-1 Mg/Ml Drops, 1 DROP OU TID, (Reported) Entered as Reported by: JANAK RAHMAN on 03/14/22 0851 Sennosides/Docusate Sodium (Senna Plus Tablet) 8.6 Mg-50 Mg Tablet, 1 EACH PO BID, (Reported) Entered as Reported by: JANAK RAHMAN on 03/14/22 0851 Review of Systems Review of Systems Constitutional: other (Unable to obtain review of systems as patient is nonverbal) Past Fsimdmu-Vrgejg-Tftalv Hx Patient Social History Tobacco Use?: No Use of E-Cig and/or Vaping dev: No Substance use?: No Alcohol Use?: No Immunizations Up To Date Tetanus Booster (TDap): Unknown PED Vaccines UTD: No First/Initial COVID19 Vaccinat: YES Second COVID19 Vaccination Theo: YES Third COVID19 Vaccination Date: YES Seasonal Allergies Seasonal Allergies: No Past Medical History Surgery/Hospitalization HX: DEMENTIA, A-FIB,CAD, HTN, HYPOTHYROIDISM, HYPERLIPIDEMIA Surgeries: Yes Abdominal Respiratory: No Currently Using CPAP: No Currently Using BIPAP: No Cardiac: Yes (SEES DR. MOTTA UNSURE WHY) Hypertension Neurological: Yes Dementia Reproductive Disorders: No Female Reproductive Disorders: Denies Sexually Transmitted Disease: No HIV/AIDS: No Genitourinary: Yes UTI-Chronic Gastrointestinal: No Musculoskeletal: Yes Fractures, Gout Endocrine: Yes Hyperthyroidism HEENT: Yes Cataract Loss of Vision: Denies Hearing Impairment: Hard of Hearing Cancer: No Psychosocial: No Integumentary: No Recent Skin Changes Blood Disorders: No Adverse Reaction/Blood Tranf: No Family Medical History Reviewed Nursing Family Hx Dementia G8 SISTER Diabetes mellitus 19 FATHER No Pertinent Family Hx, Diabetes, Psychiatric Problems Physical Exam Vital Signs Vital Signs - First Documented 08/22/22 08/22/22 02:44 04:52 Temp 36.7 Pulse 103 Resp 20 B/P (MAP) 120/86 (97) Pulse Ox 77 O2 Delivery Room Air O2 Flow Rate 5.00 Capillary Refill : Height/Weight/BMI Height: 5'4.00" Weight: 117lbs. 8.0oz. 53.295261zg; 21.00 BMI Method:Stated General Appearance: no apparent distress HEENT: PERRL/EOMI, normal ENT inspection, pharynx normal Neck: non-tender, supple, normal inspection Respiratory: chest non-tender, lungs clear, normal breath sounds, no respiratory distress Cardiovascular: regular rate, rhythm, systolic murmur (3/6 holosystolic murmur best at left sternal border) Gastrointestinal: normal bowel sounds, soft, no organomegaly, other (Feeding tube in mid abdomen with clear and black drainage. Patient appears to have diffuse tenderness with voluntary guarding about her abdomen.) Extremities: normal range of motion, non-tender, normal inspection, no calf tenderness Neurologic/Psychiatric: other (Patient is nonverbal. She is alert) Skin: normal color, warm/dry Lymphatic: no adenopathy Procedures/Interventions Suture Size: 5-0 Progress/Results/Core Measures Results/Orders Lab Results Laboratory Tests Test 08/22/22 02:54 08/22/22 03:10 08/22/22 04:09 08/22/22 04:33 Range/Units Blood Gas Puncture Site LR Blood Gas Patient Temperature 36.7 Arterial Blood pH 7.44 H 7.37-7.43 Arterial Blood Partial Pressure CO2 44 35-45 MMHG Arterial Blood Partial Pressure O2 50 L 79-93 MMHG Arterial Blood HCO3 30 H 23-27 MMOL/L Arterial Blood Total CO2 31.0 21.0-31.0 MMOL/L Arterial Blood Oxygen Saturation 85 L 94-100 % Arterial Blood Base Excess 5.5 H -2.5-2.5 MMOL/L Glen Test YES-POS Blood Gas Ventilator Setting NO Blood Gas Inspired Oxygen 6L White Blood Count 20.9 H 4.3-11.0 10^3/uL Red Blood Count 3.72 L 3.80-5.11 10^6/uL Hemoglobin 10.9 L 11.5-16.0 g/dL Hematocrit 34 L 35-52 % Mean Corpuscular Volume 90 80-99 fL Mean Corpuscular Hemoglobin 29 25-34 pg Mean Corpuscular Hemoglobin Concent 32 32-36 g/dL Red Cell Distribution Width 18.5 H 10.0-14.5 % Platelet Count 242 130-400 10^3/uL Mean Platelet Volume 9.9 9.0-12.2 fL Immature Granulocyte % (Auto) 1 % Neutrophils (%) (Auto) 86 H 42-75 % Lymphocytes (%) (Auto) 8 L 12-44 % Monocytes (%) (Auto) 6 0-12 % Eosinophils (%) (Auto) 0 0-10 % Basophils (%) (Auto) 0 0-10 % Neutrophils # (Auto) 18.0 H 1.8-7.8 10^3/uL Lymphocytes # (Auto) 1.6 1.0-4.0 10^3/uL Monocytes # (Auto) 1.2 H 0.0-1.0 10^3/uL Eosinophils # (Auto) 0.0 0.0-0.3 10^3/uL Basophils # (Auto) 0.0 0.0-0.1 10^3/uL Immature Granulocyte # (Auto) 0.1 0.0-0.1 10^3/uL Neutrophils % (Manual) 84 % Lymphocytes % (Manual) 9 % Monocytes % (Manual) 7 % Blood Morphology Comment NORMAL Prothrombin Time 12.7 12.2-14.7 SEC INR Comment 0.9 0.8-1.4 Sodium Level 139 135-145 MMOL/L Potassium Level 4.2 3.6-5.0 MMOL/L Chloride Level 100 98-107 MMOL/L Carbon Dioxide Level 24 21-32 MMOL/L Anion Gap 15 H 5-14 MMOL/L Blood Urea Nitrogen 62 H 7-18 MG/DL Creatinine 1.78 H 0.60-1.30 MG/DL Estimat Glomerular Filtration Rate 27 BUN/Creatinine Ratio 35 Glucose Level 118 H 70-105 MG/DL Calcium Level 14.2 *H 8.5-10.1 MG/DL Corrected Calcium 14.6 H 8.5-10.1 MG/DL Total Bilirubin 0.6 0.1-1.0 MG/DL Aspartate Amino Transf (AST/SGOT) 41 H 5-34 U/L Alanine Aminotransferase (ALT/SGPT) 174 H 0-55 U/L Alkaline Phosphatase 329 H 40-136 U/L Total Protein 7.1 6.4-8.2 GM/DL Albumin 3.5 3.2-4.5 GM/DL D-Dimer 2.41 H 0.00-0.49 UG/ML Procalcitonin 0.94 H <0.10 NG/ML Influenza Type A (RT-PCR) Not Detected Not Detecte Influenza Type B (RT-PCR) Not Detected Not Detecte SARS-CoV-2 RNA (RT-PCR) Not Detected Not Detecte Urine Color YELLOW Urine Clarity TURBID Urine pH 5.0 5-9 Urine Specific Hayes >=1.030 1.016-1.022 Urine Protein TRACE H NEGATIVE Urine Glucose (UA) NEGATIVE NEGATIVE Urine Ketones NEGATIVE NEGATIVE Urine Nitrite NEGATIVE NEGATIVE Urine Bilirubin NEGATIVE NEGATIVE Urine Urobilinogen 0.2 < = 1.0 MG/DL Urine Leukocyte Esterase 2+ H NEGATIVE Urine RBC (Auto) TRACE-I H NEGATIVE Urine RBC 10-25 H /HPF Urine WBC >100 H /HPF Urine Squamous Epithelial Cells 2-5 /HPF Urine Crystals PRESENT H /LPF Urine Calcium Oxalate Crystals RARE H /LPF Urine Bacteria FEW H /HPF Urine Casts NONE /LPF Urine Mucus SMALL H /LPF Urine Other /HPF Urine Culture Indicated YES My Orders Orders - ALON RILEY DO Comprehensive Metabolic Panel (08/22/22 02:51) Abo Rh Type (08/22/22 02:51) Cbc With Automated Diff (08/22/22 02:51) Arterial Blood Gas (08/22/22 02:52) Chest 1 View, Ap/Pa Only (08/22/22 02:52) Protime With Inr (08/22/22 03:01) Ct Abdomen/Pelvis Wo (08/22/22 03:01) Manual Differential (08/22/22 03:10) Covid 19 Inhouse Test (08/22/22 04:00) Influenza A And B By Pcr (08/22/22 04:00) Ua Culture If Indicated (08/22/22 04:03) Fibrin Degradation Products (08/22/22 04:06) Procalcitonin (Pct) (08/22/22 04:06) Vancomycin Injection (Vancomycin Injecti (08/22/22 04:15) Ns Iv 500 Ml (Sodium Chloride 0.9%) (08/22/22 04:15) Jernigan Cath (08/22/22 04:13) Lidocaine 2% (Urojet) (Xylocaine Urojet) (08/22/22 04:15) Ed Admission (Communication) (08/22/22 04:39) Urine Culture (08/22/22 04:33) Medications Given in ED Current Medications Medications Dose Ordered Sig/Kayla Route Start Time Stop Time Status Last Admin Dose Admin Lidocaine HCl 10 ml ONCE ONCE TOP 08/22/22 04:15 08/22/22 04:17 DC 08/22/22 04:25 10 ML Vancomycin HCl 1000 mg/Sodium Chloride 250 ml @ 250 mls/hr ONCE ONCE IV 08/22/22 04:15 08/22/22 05:14 08/22/22 04:25 250 MLS/HR Vital Signs/I&O 08/22/22 08/22/22 02:44 04:52 Temp 36.7 Pulse 103 97 Resp 20 20 B/P (MAP) 120/86 (97) 145/84 Pulse Ox 77 96 O2 Delivery Room Air OxyMask O2 Flow Rate 5.00 Departure Communication (Admissions) Patient's hypoxia improved with a simple mask. Chest x-ray improved tree-in-bud infiltrates in the bases bilaterally. Started on Zosyn, vancomycin especially in light of her significant leukocytosis. Her abdomen is tender on exam, she is nonverbal so I would not do a CT scan which is negative for any acute intra- abdominal pathology. She does have some black fluid in her feeding tube when aspirating. It does appear to be mixed with clear stomach contents. Unsure of the significance at this time. Related to Dr. Marrufo and otherwise stable condition. Impression Primary Impression: Hypoxia Additional Impression: Leukocytosis Qualified Codes: D72.829 - Elevated white blood cell count, unspecified Disposition: ADMITTED INPATIENT Condition: Stable Admissions Decision to Admit Reason: Admit from ER (General) Departure-Patient Inst. Referrals: DEEPA BRYAN DO (PCP/Family) Primary Care Physician ALON RILEY DO Aug 22, 2022 03:01
[2022-08-22 03:02] LABS: ABG BASE EXCESS 5.5 MMOL/L (-2.5-2.5); ABG OXYGEN SATURATION 85 % (94-100); ABG PCO2 44 MMHG (35-45); ABG PH 7.44 (7.37-7.43); ABG PO2 50 MMHG (79-93)
[2022-08-22 03:04] LABS: ALLENS TEST YES-POS; VENTILATOR NO
[2022-08-22 03:05] LABS: PATIENT TEMP 36.7
[2022-08-22 03:06] LABS: INSPIRED O2 6L
[2022-08-22 03:23] LABS: BASOPHILS % (AUTO) 0 % (0-10); EOSINOPHILS % (AUTO) 0 % (0-10); HEMATOCRIT 34 % (35-52); HEMOGLOBIN 10.9 g/dL (11.5-16.0); LYMPHOCYTES # (AUTO) 1.6 10^3/uL (1.0-4.0); LYMPHOCYTES % (AUTO) 8 % (12-44); MEAN CORPUSCULAR HEMOGLOBIN 29 pg (25-34); MEAN CORPUSCULAR HGB CONC 32 g/dL (32-36); MEAN CORPUSCULAR VOLUME 90 fL (80-99); MEAN PLATELET VOLUME 9.9 fL (9.0-12.2); MONOCYTES # (AUTO) 1.2 10^3/uL (0.0-1.0); MONOCYTES % (AUTO) 6 % (0-12); NEUTROPHILS % (AUTO) 86 % (42-75); PLATELET COUNT 242 10^3/uL (130-400); WHITE BLOOD COUNT 20.9 10^3/uL (4.3-11.0)
[2022-08-22 03:34] LABS: ALBUMIN 3.5 GM/DL (3.2-4.5); POTASSIUM 4.2 MMOL/L (3.6-5.0)
[2022-08-22 03:36] LABS: TOTAL PROTEIN 7.1 GM/DL (6.4-8.2)
[2022-08-22 03:38] LABS: BILIRUBIN,TOTAL 0.6 MG/DL (0.1-1.0)
[2022-08-22 03:40] LABS: CREATININE SERUM 1.78 MG/DL (0.60-1.30)
[2022-08-22 03:53] LABS: INR 0.9 (0.8-1.4); PROTHROMBIN TIME PATIENT 12.7 SEC (12.2-14.7)
[2022-08-22 04:08] LABS: CALCIUM 14.2 MG/DL (8.5-10.1)
[2022-08-22 04:10] LABS: LYMPHOCYTES % (MANUAL) 9 %; MONOCYTES % (MANUAL) 7 %; NEUTROPHILS % (MANUAL) 84 %; RBC MORPH NORMAL
[2022-08-22] MEDS ORDERED: VANCOMYCIN INJECTION 1,000 MG in NS (IVPB) 250 ML IV ONE (04:15)
[2022-08-22] MEDS ORDERED: LIDOCAINE UROJET 2% GEL 10 ML PKG TOP ONE (04:15)
[2022-08-22] MEDS: NS IV 500 ML 500 ML IV SCH ×3 (04:25→06:58)
[2022-08-22 04:47] LABS: BILIRUBIN,URINE NEGATIVE (NEGATIVE); CLARITY,URINE TURBID; COLOR,URINE YELLOW; GLUCOSE, URINE (UA) NEGATIVE (NEGATIVE); KETONES,URINE NEGATIVE (NEGATIVE); LEUKOCYTE ESTERASE ,URINE 2+ (NEGATIVE); NITRITE,URINE NEGATIVE (NEGATIVE); PROTEIN,URINE TRACE (NEGATIVE)
[2022-08-22 04:59] LABS: BACTERIA,URINE FEW /HPF; WBC,URINE >100 /HPF
[2022-08-22 05:00] LABS: CALCIUM OXALATE CRYSTALS,UR RARE /LPF
[2022-08-22] MEDS ORDERED: MELATONIN 3 MG TABLET PO PRN (05:30)
[2022-08-22] MEDS ORDERED: ZIPRASIDONE 20 MG INJ (GEODON) VIAL IM PRN (05:30)
[2022-08-22] MEDS ORDERED: ANTACID SUSP 30 ML UDC (MYLANTA) PO PRN (05:30)
[2022-08-22] MEDS ORDERED: LACTULOSE SYRUP 10GM/15ML (ENULOSE) 30ML UDC PO PRN (05:30)
[2022-08-22] MEDS ORDERED: MILK OF MAGNESIA 400 MG/5 ML 30 ML UDC PO PRN (05:30)
[2022-08-22] MEDS ORDERED: BISACODYL 10 MG SUPP (DULCOLAX) PR PRN (05:30)
[2022-08-22] MEDS ORDERED: PHARMACY TO DOSE IV SCH (05:30)
[2022-08-22] MEDS ORDERED: ONDANSETRON 4 MG (ZOFRAN) ORAL DISSOLVE TAB PO PRN (05:30)
[2022-08-22] MEDS ORDERED: diphenhydrAMINE 50 MG/ML INJ (BENADRYL) IVP PRN (05:30)
[2022-08-22] MEDS ORDERED: CALCIUM CARBONATE 500 MG (TUMS) TAB.CHEW PO PRN (05:30)
[2022-08-22] MEDS ORDERED: HYDROmorphone 2 MG/ML VIAL (DILAUDID) IV PRN (05:30)
[2022-08-22] MEDS ORDERED: LORazepam 0.5 MG (ATIVAN) TABLET PO PRN (05:30)
[2022-08-22] MEDS ORDERED: diphenhydrAMINE 25 MG TAB (BENADRYL) PO PRN (05:30)
[2022-08-22] MEDS ORDERED: ONDANSETRON 4 MG/2 ML (SDV) Z0FRAN IV PRN (05:30)
[2022-08-22] MEDS ORDERED: WATER (STERILE) FOR INJ 10 ML BTL INJ SCH (05:30)
[2022-08-22] MEDS: NS IV 1000 ML 1,000 ML IV SCH ×3 (05:49→21:52)
--- NOTE | 2022-08-22 05:57 | Diagnostic Imaging Report ---
INDICATION: hypoxia. TECHNIQUE: Single view chest 3:53 AM. CORRELATION STUDY: 03/13/2022 FINDINGS: Given patient rotation, heart size, mediastinum and vasculature overall within normal limits. Lung miles hyperinflated but overall clear. Old healed right posterior lateral rib fracture deformity. Apparent interval removal of internal fixation hardware of the left humerus. There is incompletely healed, perhaps ununited fracture of the proximal left humerus. IMPRESSION: 1. Negative for acute cardiopulmonary abnormality. Dictated by: Dictated on workstation # [id number]
--- NOTE | 2022-08-22 06:03 | Diagnostic Imaging Report ---
PROCEDURE: CT abdomen and pelvis without contrast. TECHNIQUE: Multiple contiguous axial images were obtained through the abdomen and pelvis without the use of intravenous contrast. Auto Exposure Controls were utilized during the CT exam to meet ALARA standards for radiation dose reduction. INDICATION: 86-year-old female, diffuse abdominal pain, vomiting black liquid. CORRELATION STUDY: CT abdomen and pelvis 12/02/2018 FINDINGS: LOWER THORAX: Mild tree-in-bud nodularity suggested at the lung bases. Subpleural nodule right middle lobe approximately 4 mm, previously 3 mm. LIVER: Unremarkable at unenhanced assessment. GALLBLADDER: Small gallstones, otherwise unremarkable. No overt bile duct dilatation. SPLEEN: Calcified granuloma, otherwise unremarkable. PANCREAS: Mildly atrophic. ADRENAL GLANDS: Unremarkable. KIDNEYS: Normal configuration. No calcification or obstruction. ABDOMINAL AORTA: Moderate wall calcification, nonaneurysmal. GASTROINTESTINAL TRACT: Gastric feeding tube has been placed since prior. No small bowel obstruction. Moderate stool in the proximal colon. Colonic diverticulosis. No abdominal ascites and/or free air. URINARY BLADDER: Unremarkable. REPRODUCTIVE: Uterus and adnexa unremarkable. OSSEOUS STRUCTURES: Mild anterior wedging T12. Old pubic rami fractures. Chronic bilateral rib fractures. Chronic left transverse process fractures at L1-L2. OTHER: None. IMPRESSION: 1. Very mild tree-in-bud nodularity lung bases suspect for atypical type infection. Very small area of right middle lobe pulmonary nodule. 2. Interval placement of a gastric feeding tube. No gastrointestinal tract obstruction. Initial report was provided by [facility]. Dictated by: Dictated on workstation # [id number]
[2022-08-22] MEDS ORDERED: RT-ALBUTEROL SULF 2.5 MG/3 ML PRE-MIX VIAL INH PRN (07:00)
--- NOTE | 2022-08-22 07:25 | Consultation - Surgery ---
HANSA MCKEON 08/22/22 0725: History of Present Illness History of Present Illness Patient Consulted On(cornelia/time) 08/22/22 07:18 Date Seen by Provider: Aug 22, 2022 Time Seen by Provider: 08:20 History of Present Illness Consult requested per Dr. Marrufo. Patient is a 86 year old female with past medical history (according to patient charts) of dysphagia, cognitive communication deficit, history of cerebral infarct, A-fib, hypothyroidism, vascular dementia presented from nursing facility via EMS yesterday 08-21-2022. Nursing staff say she has had brown vomit (coffee ground emesis) and brown residuals in her feeding tube for last couple of days. She had x-rays which were reportedly negative per the long term. She also had labs which were reportedly normal per long term. The patient is nonverbal and thus unable to obtain a history from her. She is not on any blood thinning medications per her records reviewed. As of this morning 08-22-2022 patient is laying in bed awake. Unable to answer any questions. She moans in response to questioning. Was able to squeeze my hand upon command, but was unable to follow any other commands. She did appear to be in mild distress. Nothing in her PEG tube at this time. Will be started on vancomycin and zosyn. Patient is currently on breathing mask (4 liters). Allergies and Home Medications Allergies Coded Allergies: melatonin (Verified Allergy, Unknown, 03/12/22) quetiapine (Verified Adverse Reaction, Unknown, 12/02/18) confusion Patient Home Medication List Home Medication List Reviewed: Yes Acetaminophen (Acetaminophen) 500 Mg Tablet, 1,000 MG PO TID, (Reported) Entered as Reported by: JANAK RAHMAN on 08/22/22938 Last Action: Reviewed Acetaminophen (Acetaminophen) 325 Mg/10.15 Ml Soln, 20.3 ML PO Q6H PRN for PAIN- MILD (1-4), (Reported) Entered as Reported by: JANAK RAHMAN on 08/22/22938 Last Action: Reviewed Alendronate Sodium (Alendronate Sodium) 70 Mg Tablet, 70 MG PO FRI, (Reported) Entered as Reported by: JANAK RAHMAN on 03/14/22 0851 Last Action: Reviewed Allopurinol (Allopurinol) 100 Mg Tablet, 100 MG PO DAILY, (Reported) Entered as Reported by: JANAK RAHMAN on 08/22/22938 Last Action: Reviewed Amlodipine Besylate (Amlodipine Besylate) 5 Mg Tablet, 5 MG PO DAILY, (Reported) Entered as Reported by: JANAK RAMHAN on 08/22/22938 Last Action: Reviewed Ascorbic Acid (Vitamin C) 1,000 Mg Tablet, 1,000 MG PO DAILY, (Reported) Entered as Reported by: JANAK RAHMAN on 08/22/22938 Last Action: Reviewed Aspirin (Aspirin) 81 Mg Tab.chew, 81 MG PO HS, (Reported) Entered as Reported by: JANAK RAHMAN on 08/22/22938 Last Action: Reviewed Carboxymethylcellulose Sodium (Refresh Tears) 0.5 % Drops, 1 DROP OU QID, (Reported) Entered as Reported by: JANAK RAHMAN on 08/22/22938 Last Action: Reviewed Cholecalciferol (Vitamin D3) (Vitamin D3) 125 Mcg (5000 Unit) Capsule, 125 MCG PO DAILY, (Reported) Entered as Reported by: JANAK RAHMAN on 03/14/22850 Last Action: Reviewed Diclofenac Sodium (Diclofenac Sodium) 1 % Gel..gram., 2 GM TOP QID PRN for PAIN- BREAKTHROUGH, (Reported) Entered as Reported by: JANAK RAHMAN on 08/22/22938 Last Action: Reviewed Doxazosin Mesylate (Doxazosin Mesylate) 1 Mg Tablet, 1 MG PO DAILY, (Reported) Entered as Reported by: JANAK RAHMAN on 08/22/22938 Last Action: Reviewed Eyelid Cleanser Combination #5 (Ocusoft Lid Scrub) 1 Each Med..pad, 1 EACH TP DAILY, (Reported) Entered as Reported by: JANAK RAHMAN on 08/22/22938 Last Action: Reviewed Lactulose (Lactulose) 10 Gram/15 Ml Solution, 10 GM PO BID, (Reported) Entered as Reported by: JANAK RAHMAN on 08/22/22938 Last Action: Reviewed Multivitamin (Multivitamin) 1 Each Tablet, 1 EACH PO DAILY, (Reported) Entered as Reported by: JANAK RAHMAN on 03/14/22850 Last Action: Reviewed Polyethylene Glycol 3350 (Miralax) 17 Gram Powd.pack, 17 GM PO HS, (Reported) Entered as Reported by: JANAK RAHMAN on 03/14/22850 Last Action: Reviewed Polymyxin B Sulf/Trimethoprim (Polytrim Eye Drops) 10,000 Unit-1 Mg/Ml Drops, 1 DROP OU TID, (Reported) Entered as Reported by: JANAK RAHMAN on 03/14/22850 Last Action: Reviewed Quetiapine Fumarate (Quetiapine Fumarate) 25 Mg Tablet, 12.5 MG PO HS, (Reported) Entered as Reported by: JANAK RAHMAN on 08/22/22938 Last Action: Reviewed Sennosides/Docusate Sodium (Senna Plus Tablet) 8.6 Mg-50 Mg Tablet, 1 EACH PO Q12H, (Reported) Entered as Reported by: JANAK RAHMAN on 03/14/22850 Last Action: Reviewed Sulfamethoxazole/Trimethoprim (Bactrim Ds Tablet) 1 Each Tablet, 1 EACH PO BID, (Reported) Entered as Reported by: JANAK RAHMAN on 08/22/22938 Last Action: Reviewed Discontinued Medications Acetaminophen (Acetaminophen) 325 Mg/10.15 Ml Soln, 10.15 ML PO Q6H PRN for PAIN-MILD (1-4), (Reported) Discontinued Reason: Prescription changed Entered as Reported by: JANAK RAHMAN on 03/14/22850 Amlodipine Besylate (Amlodipine Besylate) 5 Mg Tablet, 5 MG PO DAILY Discontinued Reason: Duplicate Order Prescribed by: SATINDER MARRUFO on 03/17/221112 Last Action: Discontinued Aspirin (Aspirin) 81 Mg Tab.chew, 81 MG PO DAILY Discontinued Reason: Duplicate Order Prescribed by: SATINDER MARRUFO on 03/17/221112 Last Action: Discontinued Carboxymethylcellulose Sodium (Refresh Tears) 0.5 % Drops, 1 DROP OU DAILY, (Reported) Discontinued Reason: Duplicate Order Entered as Reported by: JANAK RAHMAN on 03/14/22850 Last Action: Discontinued Doxazosin Mesylate (Doxazosin Mesylate) 1 Mg Tablet, 1 MG PO DAILY Discontinued Reason: No Longer Taking Prescribed by: SATINDER MARRUFO on 03/17/221112 Last Action: Discontinued Oxycodone HCl (Oxycodone HCl) 5 Mg/5 Ml Solution, 5 ML GT Q4H PRN for PAIN- SEVERE (8-10) Discontinued Reason: No Longer Taking Prescribed by: SATINDER MARRUFO on 03/17/22 1114 Last Action: Discontinued Past Bxphqpo-Aajrsf-Dkmdrg Hx Patient Social History Smoking Status: Never a Smoker Recent Hopitalizations: No Alcohol Use?: No Have you traveled recently?: No Immunizations Up To Date Tetanus Booster (TDap): Unknown PED Vaccines UTD: No Date of Pneumonia Vaccine: Jul 22, 2017 Date of Influenza Vaccine: Jul 22, 2017 Seasonal Allergies Seasonal Allergies: No Surgeries History of Surgeries: Yes Surgeries: Abdominal Respiratory History of Respiratory Disorde: No Cardiovascular History of Cardiac Disorders: Yes (SEES DR. MOTTA UNSURE WHY) Cardiac Disorders: Atrial Fibrillation, Hypertension Neurological History of Neurological Disord: Yes Neurological Disorders: Dementia (Vascular), TIA Reproductive System Hx Reproductive Disorders: No Sexually Transmitted Disease: No HIV/AIDS: No Female Reproductive Disorders: Denies Genitourinary History of Genitourinary Disor: Yes Genitourinary Disorders: UTI-Chronic Gastrointestinal History of Gastrointestinal Di: No Musculoskeletal History of Musculoskeletal Dis: Yes Musculoskeletal Disorders: Fractures, Gout Endocrine History of Endocrine Disorders: Yes Endocrine Disorders: Hypothyroidsim HEENT History of HEENT Disorders: Yes HEENT Disorders: Cataract Loss of Vision: Denies Hearing Impairment: Hard of Hearing Cancer History of Cancer: No Psychosocial History of Psychiatric Problem: No Behavioral Health Disorders: Depression Integumentary History of Skin or Integumenta: No Skin/Integumentary Disorders: Recent Skin Changes Blood Transfusions History of Blood Disorders: No Adverse Reaction to a Blood Tr: No Family Medical History Significant Family History: No Pertinent Family Hx, Diabetes, Psychiatric Problems Family Medial History: Dementia G8 SISTER Diabetes mellitus 19 FATHER Review of Systems-General ROS-Unable to Obtain: Unable to obtain at this time due to patient being non verbal Physical Exam-General Problems Physical Exam Vital Signs Vital Signs - First Documented 08/22/22 08/22/22 02:44 04:52 Temp 36.7 Pulse 103 Resp 20 B/P (MAP) 120/86 (97) Pulse Ox 77 O2 Delivery Room Air O2 Flow Rate 5.00 Capillary Refill : Less Than 3 Seconds General Appearance: moderate distress, cachetic, thin Eyes: Bilateral Eye Conjunctivae Pale, Bilateral Eye Lid Inflammation, Bilateral Eye Other (Extra occular movment not fully intact, reduced horizontal movement) HEENT: No scleral icterus (R), No scleral icterus (L), No pale conjunctivae (R), No pale conjunctivae (L) Neck: non-tender, supple Respiratory: chest non-tender, lungs clear, respiratory distress (Mild) Cardiovascular: regular rate, rhythm, no murmur, systolic murmur (3/6 holosystolic murmur) Peripheral Pulses: 2+ Radial Pulses (R), 2+ Radial Pulses (L) Gastrointestinal: normal bowel sounds, soft, other (Patient did appear tender to palpation of abdomen, PEG tube dry and clean) Rectal: deferred Back: no CVA tenderness; No vertebral tenderness Extremities: non-tender, no pedal edema Neurologic/Psychiatric: motor weakness, depressed affect, disoriented x 3, other (Non verbal, moans in response to questioning ) Skin: normal color, warm/dry Lymphatic: No no adenopathy Data Review Labs Laboratory Tests 08/22/22 02:54: Blood Gas Puncture Site LR, Blood Gas Patient Temperature 36.7, Arterial Blood pH 7.44H, Arterial Blood Partial Pressure CO2 44, Arterial Blood Partial Pressure O2 50L, Arterial Blood HCO3 30H, Arterial Blood Total CO2 31.0, Arterial Blood Oxygen Saturation 85L, Arterial Blood Base Excess 5.5H, [place] Test YES-POS, Blood Gas Ventilator Setting NO, Blood Gas Inspired Oxygen 6L 08/22/22 03:10: White Blood Count 20.9H, Red Blood Count 3.72L, Hemoglobin 10.9L, Hematocrit 34L , Mean Corpuscular Volume 90, Mean Corpuscular Hemoglobin 29, Mean Corpuscular Hemoglobin Concent 32, Red Cell Distribution Width 18.5H, Platelet Count 242, Mean Platelet Volume 9.9, Immature Granulocyte % (Auto) 1, Neutrophils (%) (Auto) 86H, Lymphocytes (%) (Auto) 8L, Monocytes (%) (Auto) 6, Eosinophils (%) (Auto) 0, Basophils (%) (Auto) 0, Neutrophils # (Auto) 18.0H, Lymphocytes # (Auto) 1.6, Monocytes # (Auto) 1.2H, Eosinophils # (Auto) 0.0, Basophils # (Auto ) 0.0, Immature Granulocyte # (Auto) 0.1, Neutrophils % (Manual) 84, Lymphocytes % (Manual) 9, Monocytes % (Manual) 7, Blood Morphology Comment NORMAL, Prothrombin Time 12.7, INR Comment 0.9, Sodium Level 139, Potassium Level 4.2, Chloride Level 100, Carbon Dioxide Level 24, Anion Gap 15H, Blood Urea Nitrogen 62H, Creatinine 1.78H, Estimat Glomerular Filtration Rate 27, BUN/Creatinine Ratio 35, Glucose Level 118H, Calcium Level 14.2*H, Corrected Calcium 14.6H, Total Bilirubin 0.6, Aspartate Amino Transf (AST/SGOT) 41H, Alanine Aminotransferase (ALT/SGPT) 174H, Alkaline Phosphatase 329H, Total Protein 7.1, Albumin 3.5 08/22/22 04:09: D-Dimer 2.41H, Procalcitonin 0.94H, Influenza Type A (RT-PCR) Not Detected, Influenza Type B (RT-PCR) Not Detected, SARS-CoV-2 RNA (RT-PCR) Not Detected 08/22/22 04:33: Urine Color YELLOW, Urine Clarity TURBID, Urine pH 5.0, Urine Specific [place] >=1.030, Urine Protein TRACEH, Urine Glucose (UA) NEGATIVE, Urine Ketones NEGATIVE, Urine Nitrite NEGATIVE, Urine Bilirubin NEGATIVE, Urine Urobilinogen 0.2, Urine Leukocyte Esterase 2+H, Urine RBC (Auto) TRACE-IH, Urine RBC 10-25H, Urine WBC >100H, Urine Squamous Epithelial Cells 2-5, Urine Crystals PRESENTH, Urine Calcium Oxalate Crystals RAREH, Urine Bacteria FEWH, Urine Casts NONE, Urine Mucus SMALLH, Urine Other , Urine Culture Indicated YES Radiology Date of Exam:08/22/22 CT ABDOMEN/PELVIS WO PROCEDURE: CT abdomen and pelvis without contrast. TECHNIQUE: Multiple contiguous axial images were obtained through the abdomen and pelvis without the use of intravenous contrast. Auto Exposure Controls were utilized during the CT exam to meet ALARA standards for radiation dose reduction. INDICATION: 86-year-old female, diffuse abdominal pain, vomiting black liquid. CORRELATION STUDY: CT abdomen and pelvis 12/02/2018 FINDINGS: LOWER THORAX: Mild tree-in-bud nodularity suggested at the lung bases. Subpleural nodule right middle lobe approximately 4 mm, previously 3 mm. LIVER: Unremarkable at unenhanced assessment. GALLBLADDER: Small gallstones, otherwise unremarkable. No overt bile duct dilatation. SPLEEN: Calcified granuloma, otherwise unremarkable. PANCREAS: Mildly atrophic. ADRENAL GLANDS: Unremarkable. KIDNEYS: Normal configuration. No calcification or obstruction. ABDOMINAL AORTA: Moderate wall calcification, nonaneurysmal. GASTROINTESTINAL TRACT: Gastric feeding tube has been placed since prior. No small bowel obstruction. Moderate stool in the proximal colon. Colonic diverticulosis. No abdominal ascites and/or free air. URINARY BLADDER: Unremarkable. REPRODUCTIVE: Uterus and adnexa unremarkable. OSSEOUS STRUCTURES: Mild anterior wedging T12. Old pubic rami fractures. Chronic bilateral rib fractures. Chronic left transverse process fractures at L1-L2. OTHER: None. IMPRESSION: 1. Very mild tree-in-bud nodularity lung bases suspect for atypical type infection. Very small area of right middle lobe pulmonary nodule. 2. Interval placement of a gastric feeding tube. No gastrointestinal tract obstruction. Assessment/Plan Assessment/Plan Assessment/Plan Possible GI bleed Monitor and trend hemoglobin Transfuse if needed Continue protonix Continue with clear liquid diet Hypoxia Continue with oxygen mask (currently on 4 liters) Leukocytosis Started on Vancomycin and Zosyn CT showed Tree in [place] nodularity at lung bases TIM Continue hydration Elevated Procalcitonin PEG tube aspiration Elevated Liver enzymes Vascular Dementia-non verbal Clinical Quality Measures DVT/VTE Risk/Contraindication: Contraindications-Pharm: Other *list below* Other: gi bleed FREDO CHRISTIAN DO 08/22/22 1633: History of Present Illness History of Present Illness History of Present Illness Consult requested by Dr. Marrufo for possible GI bleed. Patient 86-year-old female who is unable to communicate with me. This is secondary to dementia. Her oldest son is at bedside. Patient nursing staff states that she has having some coffee-ground emesis and also some coming out of her feeding tube the last couple of days. She is unable to provide any information. Her son states that she is also having a little bit of difficulty breathing and was found to be hypoxic but with oxygen this did improve. Patient unable to pass swallow test. Ct abdomen/pelvis: 1. Very mild tree-in-bud nodularity lung bases suspect for atypical type infection. Very small area of right middle lobe pulmonary nodule. 2. Interval placement of a gastric feeding tube. No gastrointestinal tract obstruction.. Allergies and Home Medications Allergies Coded Allergies: melatonin (Verified Allergy, Unknown, 03/12/22) quetiapine (Verified Adverse Reaction, Unknown, 12/02/18) confusion Patient Home Medication List Home Medication List Reviewed: Yes Acetaminophen (Acetaminophen) 500 Mg Tablet, 1,000 MG PO TID, (Reported) Entered as Reported by: JANAK RAHMAN on 08/22/22938 Last Action: Reviewed Acetaminophen (Acetaminophen) 325 Mg/10.15 Ml Soln, 20.3 ML PO Q6H PRN for PAIN- MILD (1-4), (Reported) Entered as Reported by: JANAK RAHMAN on 08/22/22938 Last Action: Reviewed Alendronate Sodium (Alendronate Sodium) 70 Mg Tablet, 70 MG PO FRI, (Reported) Entered as Reported by: JANAK RAHMAN on 03/14/22850 Last Action: Reviewed Allopurinol (Allopurinol) 100 Mg Tablet, 100 MG PO DAILY, (Reported) Entered as Reported by: JANAK RAHMAN on 08/22/22938 Last Action: Reviewed Amlodipine Besylate (Amlodipine Besylate) 5 Mg Tablet, 5 MG PO DAILY, (Reported) Entered as Reported by: JANAK RAHMAN on 08/22/22938 Last Action: Reviewed Ascorbic Acid (Vitamin C) 1,000 Mg Tablet, 1,000 MG PO DAILY, (Reported) Entered as Reported by: JANAK RAHMAN on 08/22/22938 Last Action: Reviewed Aspirin (Aspirin) 81 Mg Tab.chew, 81 MG PO HS, (Reported) Entered as Reported by: JANAK RAHMAN on 08/22/22938 Last Action: Reviewed Carboxymethylcellulose Sodium (Refresh Tears) 0.5 % Drops, 1 DROP OU QID, (Reported) Entered as Reported by: JANAK RAHMAN on 08/22/22938 Last Action: Reviewed Cholecalciferol (Vitamin D3) (Vitamin D3) 125 Mcg (5000 Unit) Capsule, 125 MCG PO DAILY, (Reported) Entered as Reported by: JANAK RAHMAN on 03/14/22850 Last Action: Reviewed Diclofenac Sodium (Diclofenac Sodium) 1 % Gel..gram., 2 GM TOP QID PRN for PAIN- BREAKTHROUGH, (Reported) Entered as Reported by: JANAK RAHMAN on 08/22/22938 Last Action: Reviewed Doxazosin Mesylate (Doxazosin Mesylate) 1 Mg Tablet, 1 MG PO DAILY, (Reported) Entered as Reported by: JANAK RAHMAN on 08/22/22938 Last Action: Reviewed Eyelid Cleanser Combination #5 (Ocusoft Lid Scrub) 1 Each Med..pad, 1 EACH TP DAILY, (Reported) Entered as Reported by: JANAK RAHMAN on 08/22/22938 Last Action: Reviewed Lactulose (Lactulose) 10 Gram/15 Ml Solution, 10 GM PO BID, (Reported) Entered as Reported by: JANAK RAHMAN on 08/22/22938 Last Action: Reviewed Multivitamin (Multivitamin) 1 Each Tablet, 1 EACH PO DAILY, (Reported) Entered as Reported by: JANAK RAHMAN on 03/14/22850 Last Action: Reviewed Polyethylene Glycol 3350 (Miralax) 17 Gram Powd.pack, 17 GM PO HS, (Reported) Entered as Reported by: JANAK RAHMAN on 03/14/22850 Last Action: Reviewed Polymyxin B Sulf/Trimethoprim (Polytrim Eye Drops) 10,000 Unit-1 Mg/Ml Drops, 1 DROP OU TID, (Reported) Entered as Reported by: JANAK RAHMAN on 03/14/22850 Last Action: Reviewed Quetiapine Fumarate (Quetiapine Fumarate) 25 Mg Tablet, 12.5 MG PO HS, (Reported) Entered as Reported by: JANAK RAHMAN on 08/22/22938 Last Action: Reviewed Sennosides/Docusate Sodium (Senna Plus Tablet) 8.6 Mg-50 Mg Tablet, 1 EACH PO Q12H, (Reported) Entered as Reported by: JANAK RAHMAN on 03/14/22850 Last Action: Reviewed Sulfamethoxazole/Trimethoprim (Bactrim Ds Tablet) 1 Each Tablet, 1 EACH PO BID, (Reported) Entered as Reported by: JANAK RAHMAN on 08/22/22938 Last Action: Reviewed Discontinued Medications Acetaminophen (Acetaminophen) 325 Mg/10.15 Ml Soln, 10.15 ML PO Q6H PRN for PAIN-MILD (1-4), (Reported) Discontinued Reason: Prescription changed Entered as Reported by: JANAK RAHMAN on 03/14/22850 Amlodipine Besylate (Amlodipine Besylate) 5 Mg Tablet, 5 MG PO DAILY Discontinued Reason: Duplicate Order Prescribed by: SATINDER MARRUFO on 03/17/22 111 Last Action: Discontinued Aspirin (Aspirin) 81 Mg Tab.chew, 81 MG PO DAILY Discontinued Reason: Duplicate Order Prescribed by: SATINDER MARRUFO on 03/17/221112 Last Action: Discontinued Carboxymethylcellulose Sodium (Refresh Tears) 0.5 % Drops, 1 DROP OU DAILY, (Reported) Discontinued Reason: Duplicate Order Entered as Reported by: JANAK RAHMAN on 03/14/22 0851 Last Action: Discontinued Doxazosin Mesylate (Doxazosin Mesylate) 1 Mg Tablet, 1 MG PO DAILY Discontinued Reason: No Longer Taking Prescribed by: SATINDER MARRUFO on 03/17/221112 Last Action: Discontinued Oxycodone HCl (Oxycodone HCl) 5 Mg/5 Ml Solution, 5 ML GT Q4H PRN for PAIN- SEVERE (8-10) Discontinued Reason: No Longer Taking Prescribed by: SATINDER MARRUFO on 03/17/221113 Last Action: Discontinued Past Laxcwvs-Lywpkt-Hbfwad Hx Reviewed Nursing Assessment Reviewed/Agree w Nursing PMH: Yes Family Medical History Significant Family History: No Pertinent Family Hx Family Medial History: Dementia G8 SISTER Diabetes mellitus 19 FATHER Review of Systems-General ROS-Unable to Obtain: unable to obtaine due to patient condition Physical Exam-General Problems Physical Exam General Appearance: cachetic, thin (laying in bed); No moderate distress HEENT: PERRL/EOMI; No scleral icterus (R), No scleral icterus (L) Neck: non-tender, supple Respiratory: chest non-tender, no respiratory distress, no accessory muscle use Cardiovascular: regular rate, rhythm, no JVD Gastrointestinal: soft, other (gastrostomy tube luq) Rectal: deferred Back: no CVA tenderness, no vertebral tenderness; No vertebral tenderness Extremities: non-tender, no pedal edema Neurologic/Psychiatric: alert, motor weakness, disoriented x 3, other (Non verbal, moans in response to questioning ) Skin: normal color, warm/dry Lymphatic: No no adenopathy Assessment/Plan Assessment/Plan Assessment/Plan Hypoxia GI bleed likely upper Atypical lung infection b/l Dementia-vascular Patient no active signs of bleeding except some black output from gastrostomy tube. Protonix Elevated procalcitonin and lung base changes likely atypical infection- continue abx, consider Ct of chest if not improving Elevated liver enzymes and leukocytosis, repeat labs and follow No surgical intervention at this time. . Supervisory-Addendum Brief Verification & Attestation Participated in pt care: history, MDM, physical Personally performed: exam, history, MDM, supervision of care Care discussed with: Medical Student Procedures: n/a Results interpretation: Verified all documentation Verification and Attestation of Medical Student E/M Service A medical student performed and documented this service in my presence. I reviewed and verified all information documented by the medical student and made modifications to such information, when appropriate. I personally performed the physical exam and medical decision making. Fredo Christian, Aug 22, 2022,16:41 HANSA MCKEON Aug 22, 2022 07:25 FREDO CHRISTIAN DO Aug 22, 2022 16:33
[2022-08-22] MEDS ORDERED: ALLO100T PO (09:39)
[2022-08-22] MEDS ORDERED: ACET-93 PO (09:39)
[2022-08-22] MEDS ORDERED: QUET25TA35 PO (09:39)
[2022-08-22] MEDS ORDERED: LACT10SO3 PO (09:39)
[2022-08-22] MEDS ORDERED: DOXA1TAB2 PO (09:39)
[2022-08-22] MEDS ORDERED: AC160U10 PO (09:39)
[2022-08-22] MEDS ORDERED: ASPI-999 PO (09:39)
[2022-08-22] MEDS ORDERED: AMLO-250 PO (09:39)
[2022-08-22] MEDS ORDERED: EYEL1MED TP (09:39)
[2022-08-22] MEDS ORDERED: DICL100G13 TOP (09:39)
[2022-08-22] MEDS ORDERED: SULF1TAB38 PO (09:39)
[2022-08-22] MEDS ORDERED: CARB15DR OU (09:39)
[2022-08-22] MEDS ORDERED: ASCO100024 PO (09:39)
[2022-08-22] MEDS: polyethylene glycoL POWDER 17 GM (MIRALAX) PACK PO PRN ×2 (09:59→10:01)
[2022-08-22] MEDS ORDERED: PIPERACILLIN SODIUM/TAZOBACTAM 4.5 GM in NS (IVPB) 100 ML IV ONE (10:00)
[2022-08-22] MEDS ORDERED: amLODIPine 5 MG (NORVASC) TAB PO NR (10:00)
[2022-08-22] MEDS: SENNOSIDES 8.6 MG (SENOKOT) TAB PO SCH ×2 (10:00→20:30)
[2022-08-22] MEDS: ACETAMINOPHEN 325 MG TABLET PO PRN ×3 (10:01→20:33)
[2022-08-22] MEDS: PANTOPRAZOLE 40 MG (PROTONIX) VIAL IV SCH (10:01)
[2022-08-22] MEDS: amLODIPine 5 MG (NORVASC) TAB PO SCH (10:02)
--- NOTE | 2022-08-22 10:09 | Speech Therapy Progress Note ---
Therapy Progress Note Speech pathology received clinical bedside swallowing evaluation consultation and the chart was reviewed. At this time the patient is receiving supplemental oxygen at a rate of 4L via oxy-mask. The patient intermittently makes eye contact with the clinician when her name is spoken and moves continuously in the bed. Due to the patient's current presentation, the clinician is not comfortable evaluating the patient or providing P.O. trials at this time. The patient's RN stated she would attempt to transfer the patient to nasal cannula and get the patient seated upright to assess for stability. Prior to P.O. attempts, the patient will need to be tolerating nasal cannula. The clinician provided the RN with the information. The RN requested information on how the patient should receive her medication. At this time, the clinician would recommend the patient remain N.P.O. due to documented concern for aspiration. The patient does have a PEG tube present. If deemed appropriate for use by the physician, the clinician would recommend utilization of the PEG tube. The patient has a suspected family member at bedside and the patient's speech language pathologist from her facility ([facility]). The patient's speech language pathologist from her facility is asking multiple questions of the RN. This clinician is not addressed throughout her time with the patient. The family member present does not ask questions. This clinician will re-attempt the assessment as the patient is appropriate. BRANT VALLADARES Aug 22, 2022 10:09
--- NOTE | 2022-08-22 10:45 | History & Physical ---
ERNESTO DEVLIN 08/22/22 1045: History of Present Illness History of Present Illness Reason for visit/HPI Patient is an 86-year-old female with a history of vascular dementia, HTN, and Afib who presented to the ED by EMS from the retirement on 08/21. Nursing staff report that there was brown vomit and brown residuals in her feeding tube. Unable to obtain a history due to patient being nonverbal. The patient is able to squeeze a hand on command, but is unable to answer any questions. Per ED, patient had some black fluid mixed with clear stomach contents in her PEG tube on aspiration. Patient's oxygen saturation was 77% on admission, but improved to 96% with 4L of oxygen. Date of Admission Aug 22, 2022 at 04:41 Date Seen by a Provider: Aug 22, 2022 Time Seen by a Provider: 08:20 I consulted on this patient on 08/22/22 10:39 Attending Physician Trey Holliday DO Admitting Physician Admitting Physician: Fariha Marrufo DO Attending Physician: Fariha Marrufo DO Consult Allergies and Home Medications Allergies Coded Allergies: melatonin (Verified Allergy, Unknown, 03/12/22) quetiapine (Verified Adverse Reaction, Unknown, 12/02/18) confusion Patient Home Medication List Home Medication List Reviewed: Yes Acetaminophen (Acetaminophen) 500 Mg Tablet, 1,000 MG PO TID, (Reported) Entered as Reported by: JANAK RAHMAN on 08/22/22938 Last Action: Reviewed Acetaminophen (Acetaminophen) 325 Mg/10.15 Ml Soln, 20.3 ML PO Q6H PRN for PAIN- MILD (1-4), (Reported) Entered as Reported by: JANAK RAHMAN on 08/22/22938 Last Action: Reviewed Alendronate Sodium (Alendronate Sodium) 70 Mg Tablet, 70 MG PO SUN, (Reported) Entered as Reported by: JANAK RAHMAN on 03/14/22 08 Last Action: Reviewed Allopurinol (Allopurinol) 100 Mg Tablet, 100 MG PO DAILY, (Reported) Entered as Reported by: JANAK RAHMAN on 08/22/22938 Last Action: Reviewed Amlodipine Besylate (Amlodipine Besylate) 5 Mg Tablet, 5 MG PO DAILY, (Reported) Entered as Reported by: JANAK RAHMAN on 08/22/22938 Last Action: Reviewed Ascorbic Acid (Vitamin C) 1,000 Mg Tablet, 1,000 MG PO DAILY, (Reported) Entered as Reported by: JANAK RAHMAN on 08/22/22938 Last Action: Reviewed Aspirin (Aspirin) 81 Mg Tab.chew, 81 MG PO HS, (Reported) Entered as Reported by: JANAK RAHMAN on 08/22/22938 Last Action: Reviewed Carboxymethylcellulose Sodium (Refresh Tears) 0.5 % Drops, 1 DROP OU QID, (Reported) Entered as Reported by: JANAK RAHMAN on 08/22/22938 Last Action: Reviewed Cholecalciferol (Vitamin D3) (Vitamin D3) 125 Mcg (5000 Unit) Capsule, 125 MCG PO DAILY, (Reported) Entered as Reported by: JANAK RAHMAN on 03/14/22850 Last Action: Reviewed Diclofenac Sodium (Diclofenac Sodium) 1 % Gel..gram., 2 GM TOP QID PRN for PAIN- BREAKTHROUGH, (Reported) Entered as Reported by: JANAK RAHMAN on 08/22/22938 Last Action: Reviewed Doxazosin Mesylate (Doxazosin Mesylate) 1 Mg Tablet, 1 MG PO DAILY, (Reported) Entered as Reported by: JANAK RAHMAN on 08/22/22938 Last Action: Reviewed Eyelid Cleanser Combination #5 (Ocusoft Lid Scrub) 1 Each Med..pad, 1 EACH TP DAILY, (Reported) Entered as Reported by: JANAK RAHMAN on 08/22/22938 Last Action: Reviewed Lactulose (Lactulose) 10 Gram/15 Ml Solution, 10 GM PO BID, (Reported) Entered as Reported by: JANAK RAHMAN on 08/22/22938 Last Action: Reviewed Multivitamin (Multivitamin) 1 Each Tablet, 1 EACH PO DAILY, (Reported) Entered as Reported by: JANAK RAHMAN on 03/14/22850 Last Action: Reviewed Polyethylene Glycol 3350 (Miralax) 17 Gram Powd.pack, 17 GM PO HS, (Reported) Entered as Reported by: JANAK RAHMAN on 03/14/22850 Last Action: Reviewed Polymyxin B Sulf/Trimethoprim (Polytrim Eye Drops) 10,000 Unit-1 Mg/Ml Drops, 1 DROP OU TID, (Reported) Entered as Reported by: JANAK RAHMAN on 03/14/22850 Last Action: Reviewed Quetiapine Fumarate (Quetiapine Fumarate) 25 Mg Tablet, 12.5 MG PO HS, (Reported) Entered as Reported by: JANAK RAHMAN on 08/22/22938 Last Action: Reviewed Sennosides/Docusate Sodium (Senna Plus Tablet) 8.6 Mg-50 Mg Tablet, 1 EACH PO Q12H, (Reported) Entered as Reported by: JANAK RAHMAN on 03/14/22850 Last Action: Reviewed Sulfamethoxazole/Trimethoprim (Bactrim Ds Tablet) 1 Each Tablet, 1 EACH PO BID, (Reported) Entered as Reported by: JANAK RAHMAN on 08/22/22938 Last Action: Reviewed Discontinued Medications Acetaminophen (Acetaminophen) 325 Mg/10.15 Ml Soln, 10.15 ML PO Q6H PRN for PAIN-MILD (1-4), (Reported) Discontinued Reason: Prescription changed Entered as Reported by: JANAK RAHMAN on 03/14/22850 Amlodipine Besylate (Amlodipine Besylate) 5 Mg Tablet, 5 MG PO DAILY Discontinued Reason: Duplicate Order Prescribed by: FARIHA MARRUFO on 03/17/221112 Last Action: Discontinued Aspirin (Aspirin) 81 Mg Tab.chew, 81 MG PO DAILY Discontinued Reason: Duplicate Order Prescribed by: FARIHA MARRUFO on 03/17/221112 Last Action: Discontinued Carboxymethylcellulose Sodium (Refresh Tears) 0.5 % Drops, 1 DROP OU DAILY, (Reported) Discontinued Reason: Duplicate Order Entered as Reported by: JANAK RAHMAN on 03/14/22850 Last Action: Discontinued Doxazosin Mesylate (Doxazosin Mesylate) 1 Mg Tablet, 1 MG PO DAILY Discontinued Reason: No Longer Taking Prescribed by: FARIHA MARRUFO on 03/17/221112 Last Action: Discontinued Oxycodone HCl (Oxycodone HCl) 5 Mg/5 Ml Solution, 5 ML GT Q4H PRN for PAIN- SEVERE (8-10) Discontinued Reason: No Longer Taking Prescribed by: FARIHA MARRUFO on 03/17/221113 Last Action: Discontinued Past Sskpogi-Icceif-Gzjsqt Hx Patient Social History Tobacco Use?: No Smoking Status: Never a Smoker Smokeless Tobacco Frequency: Never a User Use of E-Cig and/or Vaping dev: No Substance use?: No Alcohol Use?: No Pt feels they are or have been: Unable to obtain Immunizations Up To Date Date of Influenza Vaccine: Jul 22, 2017 First/Initial COVID19 Vaccinat: YES Second COVID19 Vaccination Theo: YES Tetanus Booster (TDap): Unknown Hepatitis A: No Hepatitis B: No PED Vaccines UTD: No Date of Pneumonia Vaccine: Jul 22, 2017 Seasonal Allergies Seasonal Allergies: No Current Status Advance Directives: No Communicates: Unable To Communicate Primary Language: Icelandic Preferred Spoken Language: Icelandic Is interpretation needed?: No Sensory deficits: Vision impairment, Hearing impairment Past Medical History Surgeries: Abdominal Currently Using CPAP: No Currently Using BIPAP: No Atrial Fibrillation, Hypertension Dementia (Vascular), TIA Sexually Transmitted Disease: No HIV/AIDS: No UTI-Chronic Fractures, Gout Hypothyroidsim Cataract Loss of Vision: Denies Hearing Impairment: Hard of Hearing Depression Recent Skin Changes Blood Disorders: No Adverse Reaction/Blood Tranf: No PMHx: HTN HLD PSurgHx: none Family Medical History Reviewed Nursing Family Hx Dementia G8 SISTER Diabetes mellitus 19 FATHER Diabetes, Psychiatric Problems (dementia) Review of Systems ROS-Unable to Obtain: Patient is nonverbal Physical Exam Vital Signs Vital Signs - First Documented 08/22/22 08/22/22 02:44 04:52 Temp 36.7 Pulse 103 Resp 20 B/P (MAP) 120/86 (97) Pulse Ox 77 O2 Delivery Room Air O2 Flow Rate 5.00 Capillary Refill : Less Than 3 Seconds Height, Weight, BMI Height: 5'4.00" Weight: 117lbs. 8.0oz. 53.782921ha; 18.66 BMI Method:Stated General Appearance: Chronically ill, Mild Distress, Thin HEENT: PERRL/EOMI, Pharynx Normal Neck: Non Tender, Supple Respiratory: Chest Non Tender, Normal Breath Sounds Cardiovascular: Regular Rate, Rhythm, No Edema Gastrointestinal: Non Tender, Soft Rectal: Deferred Back: Normal Inspection, No CVA Tenderness Extremity: Normal Capillary Refill, Non Tender Neurologic/Psychiatric: Alert, Disoriented Skin: Warm/Dry, Ecchymosis Lymphatic: No Adenopathy Assessment/Plan Assessment and Plan Hypoxia Leukocytosis Possible GI bleed HTN Hx of afib Vascular dementia TIM Continue oxygen Currently on vancomycin and Zosyn Surgery consulted for possible GI bleed Continue IV fluids Admission Diagnosis Admission Status: Inpatient Order (span 2 midnights) Reason for Inpatient Admission: Needs at least 48 hours of IV fluids and antibiotics Clinical Quality Measures DVT/VTE Risk/Contraindication: Contraindications-Pharm: Other *list below* Other: gi bleed FARIHA MARRUFO DO 08/23/22 0506: History of Present Illness History of Present Illness Reason for visit/HPI CC: Pneumonia with UTI and hematemesis HPI: This is an 86 yr old female retirement pt that Aissatou Prado and I have been taking care of. She was set to go home today when she presented to the ER with fever and altered mental status. She was found to have pneumonia with a white count of 20,000, UTI, and hematemesis. Dr. Smith will be consulted. Pt was placed on Zosyn for aspiration pneumonia and Vancomycin for presumed bacteremia facility acquired. Spoke with DPOA and we will talk more about DNR since she appears to be very debilitated. Allergies and Home Medications Allergies Coded Allergies: melatonin (Verified Allergy, Unknown, 03/12/22) quetiapine (Verified Adverse Reaction, Unknown, 12/02/18) confusion Patient Home Medication List Acetaminophen (Acetaminophen) 500 Mg Tablet, 1,000 MG PO TID, (Reported) Entered as Reported by: JANAK RAHMAN on 08/22/22938 Last Action: Reviewed Acetaminophen (Acetaminophen) 325 Mg/10.15 Ml Soln, 20.3 ML PO Q6H PRN for PAIN- MILD (1-4), (Reported) Entered as Reported by: JANAK RAHMAN on 08/22/22938 Last Action: Reviewed Alendronate Sodium (Alendronate Sodium) 70 Mg Tablet, 70 MG PO FRI, (Reported) Entered as Reported by: JANAK RAHMAN on 03/14/22 0851 Last Action: Reviewed Allopurinol (Allopurinol) 100 Mg Tablet, 100 MG PO DAILY, (Reported) Entered as Reported by: JANAK RAHMAN on 08/22/22938 Last Action: Reviewed Amlodipine Besylate (Amlodipine Besylate) 5 Mg Tablet, 5 MG PO DAILY, (Reported) Entered as Reported by: JANAK RAHMAN on 08/22/22938 Last Action: Reviewed Ascorbic Acid (Vitamin C) 1,000 Mg Tablet, 1,000 MG PO DAILY, (Reported) Entered as Reported by: JANAK RAHMAN on 08/22/22938 Last Action: Reviewed Aspirin (Aspirin) 81 Mg Tab.chew, 81 MG PO HS, (Reported) Entered as Reported by: JANAK RAHMAN on 08/22/22938 Last Action: Reviewed Carboxymethylcellulose Sodium (Refresh Tears) 0.5 % Drops, 1 DROP OU QID, (Reported) Entered as Reported by: JANAK RAHMAN on 08/22/22938 Last Action: Reviewed Cholecalciferol (Vitamin D3) (Vitamin D3) 125 Mcg (5000 Unit) Capsule, 125 MCG PO DAILY, (Reported) Entered as Reported by: JANAK RAHMAN on 03/14/22850 Last Action: Reviewed Diclofenac Sodium (Diclofenac Sodium) 1 % Gel..gram., 2 GM TOP QID PRN for PAIN- BREAKTHROUGH, (Reported) Entered as Reported by: JANAK RAHMAN on 08/22/22938 Last Action: Reviewed Doxazosin Mesylate (Doxazosin Mesylate) 1 Mg Tablet, 1 MG PO DAILY, (Reported) Entered as Reported by: JANAK RAHMAN on 08/22/22938 Last Action: Reviewed Eyelid Cleanser Combination #5 (Ocusoft Lid Scrub) 1 Each Med..pad, 1 EACH TP DAILY, (Reported) Entered as Reported by: JANAK RAHMAN on 08/22/22938 Last Action: Reviewed Lactulose (Lactulose) 10 Gram/15 Ml Solution, 10 GM PO BID, (Reported) Entered as Reported by: JANAK RAHMAN on 08/22/22938 Last Action: Reviewed Multivitamin (Multivitamin) 1 Each Tablet, 1 EACH PO DAILY, (Reported) Entered as Reported by: JANAK RAHMAN on 03/14/22850 Last Action: Reviewed Polyethylene Glycol 3350 (Miralax) 17 Gram Powd.pack, 17 GM PO HS, (Reported) Entered as Reported by: JANAK RAHMAN on 03/14/22850 Last Action: Reviewed Polymyxin B Sulf/Trimethoprim (Polytrim Eye Drops) 10,000 Unit-1 Mg/Ml Drops, 1 DROP OU TID, (Reported) Entered as Reported by: JANAK RAHMAN on 03/14/22850 Last Action: Reviewed Quetiapine Fumarate (Quetiapine Fumarate) 25 Mg Tablet, 12.5 MG PO HS, (Re ported) Entered as Reported by: JANAK RAHMAN on 08/22/22938 Last Action: Reviewed Sennosides/Docusate Sodium (Senna Plus Tablet) 8.6 Mg-50 Mg Tablet, 1 EACH PO Q12H, (Reported) Entered as Reported by: JANAK RAHMAN on 03/14/22850 Last Action: Reviewed Sulfamethoxazole/Trimethoprim (Bactrim Ds Tablet) 1 Each Tablet, 1 EACH PO BID, (Reported) Entered as Reported by: JANAK RAHMAN on 08/22/22938 Last Action: Reviewed Discontinued Medications Acetaminophen (Acetaminophen) 325 Mg/10.15 Ml Soln, 10.15 ML PO Q6H PRN for PAIN-MILD (1-4), (Reported) Discontinued Reason: Prescription changed Entered as Reported by: JANAK RAHMAN on 03/14/22850 Amlodipine Besylate (Amlodipine Besylate) 5 Mg Tablet, 5 MG PO DAILY Discontinued Reason: Duplicate Order Prescribed by: FARIHA MARRUFO on 03/17/221112 Last Action: Discontinued Aspirin (Aspirin) 81 Mg Tab.chew, 81 MG PO DAILY Discontinued Reason: Duplicate Order Prescribed by: FARIHA MARRUFO on 03/17/221112 Last Action: Discontinued Carboxymethylcellulose Sodium (Refresh Tears) 0.5 % Drops, 1 DROP OU DAILY, (Reported) Discontinued Reason: Duplicate Order Entered as Reported by: JANAK RAHMAN on 03/14/22850 Last Action: Discontinued Doxazosin Mesylate (Doxazosin Mesylate) 1 Mg Tablet, 1 MG PO DAILY Discontinued Reason: No Longer Taking Prescribed by: FARIHA MARRUFO on 03/17/221112 Last Action: Discontinued Oxycodone HCl (Oxycodone HCl) 5 Mg/5 Ml Solution, 5 ML GT Q4H PRN for PAIN- SEVERE (8-10) Discontinued Reason: No Longer Taking Prescribed by: FARIHA MARRUFO on 03/17/221113 Last Action: Discontinued Past Pmakqcc-Cwfoom-Xibuhx Hx Patient Social History Marrital Status: single Employed/Student: retired Smoking Status: Never a Smoker Past Medical History Dementia Gastroesophageal Reflux Family Medical History Dementia G8 SISTER Diabetes mellitus 19 FATHER Review of Systems Constitutional: see HPI Physical Exam General Appearance: Chronically ill, Mild Distress, Thin, Other (Confused) Respiratory: No Accessory Muscle Use, No Respiratory Distress, Decreased Breath Sounds Cardiovascular: Regular Rate, Rhythm Neurologic/Psychiatric: Alert, Depressed Affect, Disoriented Assessment/Plan Assessment and Plan Assessment: Hypoxia Pneumonia UTI facility acquired GI bleed Vascular dementia PEG tube Plan: IV antibiotics Needs DNR Surgery consultation patient is Admission Diagnosis Admission Status: Inpatient Order (span 2 midnights) Reason for Inpatient Admission: Pneumonia UTI with GI bleed Supervisory-Addendum Brief Verification & Attestation Participated in pt care: history, MDM, physical Personally performed: exam, history, MDM, supervision of care Care discussed with: Medical Student Procedures: n/a Results interpretation: Verified all documentation Verification and Attestation of Medical Student E/M Service A medical student performed and documented this service in my presence. I reviewed and verified all information documented by the medical student and made modifications to such information, when appropriate. I personally performed the physical exam and medical decision making. Fariha Marrufo, Aug 23, 2022,05:06 ERNESTO DEVLIN Aug 22, 2022 10:45 FARIHA MARRUFO DO Aug 23, 2022 05:06
[2022-08-22] MEDS: DOCUSATE SODIUM 100 MG (COLACE) CAP PO SCH ×2 (12:15→20:30)
--- NOTE | 2022-08-22 13:48 | ST Dysphagia Evaluation ---
Speech Evaluation-General Medical Diagnosis Hypoxia Onset Date: Aug 21, 2022 Therapy Diagnosis Therapy Diagnosis: Suspected Oropharyngeal Dysphagia Precautions Precautions: Fall, Pressure Ulcer, Aspiration Precautions/Isolations: Aspiration, Fall Prevention, Standard Precautions, Pressure Ulcer Referral Referring Physician: Dr. Parnell Reason for Referral: Evaluation/Treatment Medical History Pertinent Medical History: Arthritis, Dementia, HTN Current History The patient is an 86 year-old female with a past medical history significant for dysphagia, dementia, HTN, CAD, atrial fibrillation, hypothyroidism, hyperlipidemia, UTI, and hard of hearing, who presents to the emergency department via EMS following brown residuals from her PEG tube. CT Abdomen/Pelvis: 08/22/22: 1. Very mild tree-in-bud nodularity lung bases suspect for atypical type infection. Very small area of right middle lobe pulmonary nodule. 2. Interval placement of a gastric feeding tube. No gastrointestinal tract obstruction. Speech PLF/Current-Dysphagia Prior Level of Function Prior to admission, the patient was receiving a mechanically altered diet consistency with thin liquids. The patient completed a modified barium swallow evaluation with this clinician on 05/26/2022. At that time, no aspiration or penetration were viewed with any consistency tested. Full supervision and feeding were recommended by this clinician for P.O. intake. Subjective The patient was lying in bed, eyes opened, upon entrance to her room by the clinician. The patient intermittently made eye contact with the clinician when her name was spoken. The patient was seated upright in bed for safe swallowing. Cognitive Status Patient Orientation: Unable to Assess Oral Motor Skills Dentition: Natural Current Food Consistancy: Clear Liquids Ability to Follow Directions: Poor The patient rarely followed verbal commands with direct modeling provided by the clinician. Due to her hard of hearing status, elevated vocal intensity was provided by the clinician. Oral Expression Ability: Severe Impairment Face Facial Symmetry: Asymmetrical Oral-Facial Assessment Oral-Facial Dentition: Normal Labial Seal Description: Weak, Poor Coordination Lingual Protrusion: Normal Lingual Strength: Abnormal (Weak, bilaterally.) Volitional Dry Swallow: No Voluntary Cough: No Can Clear Throat Volitionally: No Productive Cough: No Productive Throat Clear: No Dysphagia Evaluation Consistencies Presented: Thin Liquid (One ice chip, three half teaspoons, one bite size of Jell-O.) Oral Phase: Anterior Spillage, Absent Oral Transit The patient displayed the ability to round her lips and remove the thin liquids from the teaspoon. The patient orally held all boluses provided, displaying anterior spillage of each consistency. Limited posterior transfer was achieved. Maximum verbal prompting was required for limited participation. Maximum verbal cueing and direct modeling were required by the clinician. Significantly delayed onset of the pharyngeal swallow was present with gentle tactile stimulation and palpation of the thyroid notch. Immediate, rigorous coughing was present with each bolus provided. Dietary Recommendations: NPO Liquid Recommendations: NPO Recommendations: - The patient should remain N.P.O. - If deemed appropriate by the physician, the patient should receive nutrition, hydration, and medication via PEG tube. - Frequent and excellent oral care to reduce the transfer of oral bacteria to the lungs should aspiration of secretions occur. - Speech pathology to re-assess the oropharyngeal swallowing function, as appropriate. Due to the patient's history of fluctuating aspiration, the patient's current level of lethargy, and inability to consistency follow verbal instructions, the clinician suspects a high risk of aspiration with P.O. intake. Prior to recommendations of an oral diet, speech pathology would recommend a modified barium swallow evaluation when the patient is appropriate and able to participate. The above recommendations were provided to the RN at completion of the study. The patient's lunch tray was removed from bedside by the speech pathologist and the in-room white board was updated to read N.P.O. Dysphagia Evaluation Summary The patient demonstrated suspected oropharyngeal dysphagia characterized by decreased lingual and labial range of motion and strength, a suspected delayed onset of the pharyngeal swallow function, and poor airway protection in the presence of bolus material. Speech Short Term Goals Short Term Goals Short Term Goals 1. The patient will tolerate trials of the least restrictive consistency without s/s of suspected aspiration. Time Frame-STG: Two Days. Speech Senior Care Goals Senior Care Goals 1. The patient will demonstrate tolerance of the least restrictive diet consistency without s/s of suspected aspiration. Time Frame: Six Weeks. Speech-Plan Treatment Plan Speech Therapy Treatment Plan: Continue Plan of Care Treatment Duration: Aug 25, 2022 Frequency: 2 times per week Estimated Hrs Per Day: .25 hour per day Rehab Potential: Poor Safety Risks/Education Teaching Recipient: Patient Teaching Methods: Discussion Response to Teaching: Unable to Comprehend Education Topics Provided: Results, Recommendations, Plan of Care Discharge Recommendations 24 Hour Supervision Time Speech Therapy Time In: 13:25 Speech Therapy Time Out: 13:45 Total Billed Time: 20 Billed Treatment Time 1, JAYCEEEVS, BRANT Estrada Aug 22, 2022 13:48
[2022-08-22] MEDS: PIPERACILLIN SODIUM/TAZOBACTAM 4.5 GM in NS (IVPB) 100 ML IV SCH (16:32)
[2022-08-23 03:19] VITALS: BP 155/71
[2022-08-23] MEDS: PIPERACILLIN SODIUM/TAZOBACTAM 4.5 GM in NS (IVPB) 100 ML IV SCH ×3 (04:12→20:34)
[2022-08-23] MEDS ORDERED: TROUGH ORDER-PHARMACY XX ONE (05:00)
[2022-08-23] MEDS: NS IV 1000 ML 1,000 ML IV SCH ×3 (05:35→18:27)
[2022-08-23 05:38] LABS: BASOPHILS % (AUTO) 0 % (0-10); EOSINOPHILS # (AUTO) 0.1 10^3/uL (0.0-0.3); EOSINOPHILS % (AUTO) 1 % (0-10); HEMATOCRIT 29 % (35-52); HEMOGLOBIN 8.9 g/dL (11.5-16.0); LYMPHOCYTES # (AUTO) 1.8 10^3/uL (1.0-4.0); LYMPHOCYTES % (AUTO) 16 % (12-44); MEAN CORPUSCULAR HEMOGLOBIN 29 pg (25-34); MEAN CORPUSCULAR HGB CONC 31 g/dL (32-36); MEAN CORPUSCULAR VOLUME 95 fL (80-99); MEAN PLATELET VOLUME 9.9 fL (9.0-12.2); MONOCYTES # (AUTO) 0.9 10^3/uL (0.0-1.0); MONOCYTES % (AUTO) 8 % (0-12); NEUTROPHILS # (AUTO) 8.6 10^3/uL (1.8-7.8); NEUTROPHILS % (AUTO) 74 % (42-75); PLATELET COUNT 188 10^3/uL (130-400); WHITE BLOOD COUNT 11.5 10^3/uL (4.3-11.0)
[2022-08-23 06:08] LABS: ALBUMIN 2.8 GM/DL (3.2-4.5); BILIRUBIN,TOTAL 0.5 MG/DL (0.1-1.0); CALCIUM 11.2 MG/DL (8.5-10.1); CREATININE SERUM 1.12 MG/DL (0.60-1.30); POTASSIUM 3.7 MMOL/L (3.6-5.0); TOTAL PROTEIN 5.8 GM/DL (6.4-8.2)
[2022-08-23 06:14] LABS: VANCOMYCIN,TROUGH 8.6 UG/ML (10.0-20.0)
--- NOTE | 2022-08-23 06:18 | Progress Note - Surgery ---
HANSA MCKEON 08/23/22 0618: Subjective Date Seen by a Provider: Aug 23, 2022 Time Seen by a Provider: 08:20 Subjective/Events-last exam Patient appears in less distress compared to yesterday She is more responsive today, making better eye contact and able to follow a few commands Her oxygen is down to 2 L from 4 L. No blood was seen in PEG tube yesterday No evidence of blood loss Labs reviewed Objective Exam Vital Signs Date Time Temp Pulse Resp B/P (MAP) Pulse Ox O2 Delivery O2 Flow Rate FiO2 08/23/22 03:19 36.6 86 18 155/71 (99) 99 Nasal Cannula 2.00 2.00 08/23/22 01:00 73 08/22/22 23:13 36.1 75 18 140/63 (88) 97 Nasal Cannula 2.00 2.00 08/22/22 20:53 Nasal Cannula 2.00 08/22/22 19:35 36.6 82 18 161/73 (102) 96 Nasal Cannula 3.00 08/22/22 19:01 82 08/22/22 16:00 160/80 (106) 08/22/22 16:00 36.7 93 18 95 Nasal Cannula 2.50 08/22/22 12:37 90 08/22/22 11:38 36.7 95 20 151/74 (99) 95 Nasal Cannula 3.00 08/22/22 08:23 36.6 97 20 173/93 (119) 95 OxyMask 4.00 08/22/22 08:00 OxyMask 4.00 08/22/22 07:08 96 08/22/22 06:46 36.4 90 96 08/22/22 06:43 90 20 126/81 (96) 96 OxyMask 4.00 08/22/22 06:24 OxyMask 4.00 08/22/22 06:23 OxyMask 6.00 I & O 08/23/22 07:00 Intake Total 1950 ml Output Total 1450 ml Balance 500 ml Capillary Refill : Less Than 3 Seconds General Appearance: Chronically ill, Mild Distress, Thin, Other (Confused) HEENT: PERRL/EOMI, Pharynx Normal Neck: Non Tender, Supple Respiratory: No Accessory Muscle Use, No Respiratory Distress, Decreased Breath Sounds Cardiovascular: Regular Rate, Rhythm, No JVD Peripheral Pulses: 2+ Radial Pulses (R), 2+ Radial Pulses (L) Gastrointestinal: soft, other (gastrostomy tube LLQ) Extremity: Normal Capillary Refill, Non Tender Neurologic/Psychiatric: Alert, Depressed Affect, Disoriented Skin: Warm/Dry, Ecchymosis; No Jaundice Lymphatic: No Adenopathy Results Lab Laboratory Tests 08/23/22 05:20: White Blood Count 11.5H, Red Blood Count 3.07L, Hemoglobin 8.9L, Hematocrit 29L, Mean Corpuscular Volume 95, Mean Corpuscular Hemoglobin 29, Mean Corpuscular Hemoglobin Concent 31L, Red Cell Distribution Width 18.3H, Platelet Count 188, Mean Platelet Volume 9.9, Immature Granulocyte % (Auto) 0, Neutrophils (%) (Auto) 74, Lymphocytes (%) (Auto) 16, Monocytes (%) (Auto) 8, Eosinophils (%) (Auto) 1, Basophils (%) (Auto) 0, Neutrophils # (Auto) 8.6H, Lymphocytes # (Auto) 1.8, Monocytes # (Auto) 0.9, Eosinophils # (Auto) 0.1, Basophils # (Auto) 0.0, Immature Granulocyte # (Auto) 0.0, Sodium Level 142, Potassium Level 3.7, Carbon Dioxide Level 20L, Anion Gap 11, Blood Urea Nitrogen 42H, Creatinine 1.12, Estimat Glomerular Filtration Rate 48, BUN/Creatinine Ratio 38, Glucose Level 83, Calcium Level 11.2H, Corrected Calcium 12.2H, Total Bilirubin 0.5, Aspartate Amino Transf (AST/SGOT) 27, Alanine Aminotransferase (ALT/SGPT) 96H, Alkaline Phosphatase 214H, Total Protein 5.8L, Albumin 2.8L Microbiology 08/22/22 Urine Culture - Preliminary, Resulted Gram Positive Cocci In Chains Assessment/Plan Assessment/Plan Assessment/Plan GI bleed-likely upper GI Monitor and trend hemoglobin Transfuse if needed Continue protonix NPO at this time No blood seen in gastrostomy yesterday No surgical intervention at this time Hypoxia Currently on 2 Liters NC, down from 4 Liters yesterday Atypical lung infection/Leukocytosis Continue on Vancomycin and Zosyn CT showed Tree in [place] nodularity at lung bases TIM Continue hydration Elevated liver enzymes Monitor labs Elevated Procalcitonin-Secondary to atypical lung infection Monitor labs PEG tube aspiration Elevated Liver enzymes Vascular Dementia-non verbal Clinical Quality Measures DVT/VTE Risk/Contraindication: Contraindications-Pharm: Other *list below* Other: gi bleed JESUS ALBERTO SMITH DO 08/23/222046: Subjective Subjective/Events-last exam Patient states shes doing okay. She is not having any abdominal pain. Denies any other complaints. Hgb decreased today. No evidence of active bleeding. Denies n/v fever sweats chills shortness of breath or chest pain at this time. Objective Exam General Appearance: Chronically ill; No Mild Distress; Thin HEENT: PERRL/EOMI Neck: Non Tender, Supple Respiratory: Chest Non Tender, No Accessory Muscle Use, No Respiratory Distress Cardiovascular: Regular Rate, Rhythm, No JVD Gastrointestinal: soft, other (gastrostomy tube LLQ) Extremity: Non Tender Neurologic/Psychiatric: Alert; No Oriented x3 Skin: Normal Color, Warm/Dry Lymphatic: No Adenopathy Assessment/Plan Assessment/Plan Assessment/Plan GI bleed likely upper Hypoxia Atypical lung infection b/l Dementia-vascular Patient no active signs of bleeding WBC improving Hgb decreased could be dilution Protonix Elevated procalcitonin and lung base changes likely atypical infection- continue abx, consider Ct of chest if not improving Elevated liver enzymes and leukocytosis, repeat labs and follow-improving No surgical intervention at this time. . Supervisory-Addendum Brief Verification & Attestation Participated in pt care: history, MDM, physical Personally performed: exam, history, MDM, supervision of care Care discussed with: Medical Student Procedures: n/a Results interpretation: Verified all documentation Verification and Attestation of Medical Student E/M Service A medical student performed and documented this service in my presence. I reviewed and verified all information documented by the medical student and made modifications to such information, when appropriate. I personally performed the physical exam and medical decision making. Jesus Alberto Smith, Aug 23, 2022,20:48 HANSA MCKEON Aug 23, 2022 06:18 JESUS ALBERTO SMITH DO Aug 23, 2022 20:47
[2022-08-23 07:12] VITALS: BP 181/77
[2022-08-23] MEDS: VANCOMYCIN 750 MG/NS 250 ML IVPB IV SCH ×2 (07:33)
[2022-08-23] MEDS: polyethylene glycoL POWDER 17 GM (MIRALAX) PACK PO PRN (09:28)
[2022-08-23] MEDS: SENNOSIDES 8.6 MG (SENOKOT) TAB PO SCH ×2 (09:29→20:22)
[2022-08-23] MEDS: DOCUSATE SODIUM 100 MG (COLACE) CAP PO SCH ×2 (09:29→20:22)
[2022-08-23] MEDS: amLODIPine 5 MG (NORVASC) TAB PO SCH (09:29)
[2022-08-23] MEDS: ACETAMINOPHEN 325 MG TABLET PO PRN (09:29)
[2022-08-23] MEDS: PANTOPRAZOLE 40 MG (PROTONIX) VIAL IV SCH (09:29)
[2022-08-23 12:11] VITALS: BP 172/78
--- NOTE | 2022-08-23 12:21 | Progress Note ---
ERNESTO DEVLIN 08/23/22 1221: Subjective Date Seen by a Provider: Aug 23, 2022 Time Seen by a Provider: 10:30 Subjective/Events-last exam Patient is slightly more responsive today. She is still unable to answer most questions but replied, "not good" when asked how she was doing today. The patient's DPOA was in the room and stated that the patient has not said much else besides that. The patient was slightly restless this morning, but did not appear in any distress. The patient's WBC count improved from 20.9 yesterday to 11.5 today. Objective Exam Last Set of Vital Signs Vital Signs Date Time Temp Pulse Resp B/P (MAP) Pulse Ox O2 Delivery O2 Flow Rate FiO2 08/23/22 12:11 36.8 80 21 172/78 (109) 96 Nasal Cannula 2.00 Capillary Refill : Less Than 3 Seconds I&O Intake and Output 08/22/22 23:58 Intake Total 1950 ml Output Total 900 ml Balance 1050 ml Intake Oral 0 ml IV Total 1950 ml Output Urine Total 900 ml Daily Weight Change Unsure General: Alert, No Acute Distress HEENT: Atraumatic Neck: Supple Lungs: Clear to Auscultation Heart: Regular Rate, No Murmurs Abdomen: Soft, No Tenderness Extremities: No Clubbing Results Lab Laboratory Tests 08/23/22 05:20: White Blood Count 11.5H, Red Blood Count 3.07L, Hemoglobin 8.9L, Hematocrit 29L, Mean Corpuscular Volume 95, Mean Corpuscular Hemoglobin 29, Mean Corpuscular Hemoglobin Concent 31L, Red Cell Distribution Width 18.3H, Platelet Count 188, Mean Platelet Volume 9.9, Immature Granulocyte % (Auto) 0, Neutrophils (%) (Auto) 74, Lymphocytes (%) (Auto) 16, Monocytes (%) (Auto) 8, Eosinophils (%) (Auto) 1, Basophils (%) (Auto) 0, Neutrophils # (Auto) 8.6H, Lymphocytes # (Auto ) 1.8, Monocytes # (Auto) 0.9, Eosinophils # (Auto) 0.1, Basophils # (Auto) 0.0, Immature Granulocyte # (Auto) 0.0, Sodium Level 142, Potassium Level 3.7, Chloride Level 111H, Carbon Dioxide Level 20L, Anion Gap 11, Blood Urea Nitrogen 42H, Creatinine 1.12, Estimat Glomerular Filtration Rate 48, BUN/Creatinine Ratio 38, Glucose Level 83, Calcium Level 11.2H, Corrected Calcium 12.2H, Total Bilirubin 0.5, Aspartate Amino Transf (AST/SGOT) 27, Alanine Aminotransferase (ALT/SGPT) 96H, Alkaline Phosphatase 214H, Total Protein 5.8L, Albumin 2.8L, Vancomycin Level Trough 8.6L Microbiology 08/22/22 Urine Culture - Preliminary, Resulted Enterococcus species Assessment/Plan Assessment/Plan Assess & Plan/Chief Complaint Pneumonia Hypoxia UTI- facility acquired Vascular dementia GI bleed Currently on vancomycin and zosyn Continue oxygen Surgery consulted Continue protonix Maintain NPO Clinical Quality Measures Admission Status Admission Dx Hypoxia Leukocytosis Possible GI bleed HTN Hx of afib Vascular dementia TIM Continue oxygen Currently on vancomycin and Zosyn Surgery consulted for possible GI bleed Continue IV fluids DVT/VTE Risk/Contraindication: Contraindications-Pharm: Other *list below* Other: gi bleed FARIHA PARNELL DO 08/23/222040: Subjective Subjective/Events-last exam Pt is very debilitated Remains nonverbal Hemoglobin is down Urine culture shows Enterococcus Pt is on Zosyn and Vancomycin DPOA is at the bedside and insists she is a full code She appears to be a hospice candidate currently Will continue to be supportive Objective Exam General: Alert, Other (confused) Lungs: Clear to Auscultation Heart: Regular Rate Assessment/Plan Assessment/Plan Assess & Plan/Chief Complaint Appreciate general surgery Patient has a very poor prognosis Supervisory-Addendum Brief Verification & Attestation Participated in pt care: history, MDM, physical Personally performed: exam, history, MDM, supervision of care Care discussed with: Medical Student Procedures: n/a Results interpretation: Verified all documentation Verification and Attestation of Medical Student E/M Service A medical student performed and documented this service in my presence. I reviewed and verified all information documented by the medical student and made modifications to such information, when appropriate. I personally performed the physical exam and medical decision making. Fariha Parnell, Aug 23, 2022,20:42 ERNESTO DEVLIN Aug 23, 2022 12:21 FARIHA PARNELL DO Aug 23, 2022 20:41
--- NOTE | 2022-08-23 13:22 | Speech Therapy Daily Note ---
Speech Daily Progress Note Subjective Date Seen by Provider: Aug 23, 2022 Time Seen by Provider: 11:45 The patient was lying in bed, eyes opened, upon entrance to her room by the clinician. The patient's son is present at bedside and remains for the skilled treatment session on this date. The patient intermittently made eye contact with the clinician when her name was verbally spoken. The patient was positioned upright in bed for safe swallowing. The patient is receiving supplemental oxygen via nasal cannula (2L) with SpO2% at 99% prior to, throughout, and following P.O. bolus trials. Per RN (and student RN), the patient recently received pain medication. Prior to the pain medication, the patient was reported as "restless." Following the pain medication, the patient has displayed more fatigue as the RN feels the patient has been able to find increased comfort. Maximum verbal prompting is required throughout the treatment session for limited active participation. The patient returns to sleep on three occasions throughout the fifteen minute treatment session. The patient rarely follows simple, one-step commands and does not attempt verbalizations or responses to the clinician's questions. Objective The patient initially displays an appropriate ability to remove the ice chip from the teaspoon with lip rounding. The patient minimally manipulates the ice chip in the oral cavity, allowing the ice chip to melt. The patient does not display active posterior transfer of the material and allows for complete premature spillage into the hypopharynx as the thin liquid is not visualized in the oral cavity. The patient does not elicit a pharyngeal swallow. Regardless of maximum verbal prompting and gentle tactile thyroid notch palpation, the patient does not elicit a pharyngeal swallow. Following multiple minutes, the patient displays a pharyngeal swallow followed by an immediate, rigorous cough. Half teaspoons of thin liquid were attempted. Initially, the patient would not remove the liquid from the teaspoon. With maximum verbal prompting and thermal tactile stimulation to the lips, the patient displayed lip rounding and removal of the thin liquid. Oral holding behaviors were again displayed. With prolonged time, the patient displayed a pharyngeal swallow. Following the first attempt of the half teaspoon, the patient continuously returns to sleep. When the patient wakes following maximum verbal prompting, she does not accept oral boluses. The patient is actively snoring at the completion of the treatment session. At this time, the patient is not deemed safe or appropriate for P.O. intake. Recommendations: - The patient should remain N.P.O. - Pending clearance from the physician, the patient should receive total nutrition, hydration and medication via PEG tube. - The RN asked the clinician if the PEG tube could be utilized. The clinician deferred all decisions regarding PEG tube use to the physician, as this clinician recommended following the evaluation the day prior. Additionally, the transfer worker has placed PEG tube feeding recommendations for nutrition in the zeus clarke's chart, however, has also deferred the recommendation for PEG tube use to the patient's medical team. - Frequent and excellent oral care to reduce the transfer of oral bacteria to the lungs should aspiration of secretions occur. - Speech pathology to re-assess the oropharyngeal swallowing function, as appropriate. Due to the patient's history of fluctuating aspiration, the patient's current level of lethargy, and her inability to consistency follow verbal instructions, the clinician suspects a high risk of aspiration with P.O. intake. Prior to recommendations of an oral diet, speech pathology would recommend a modified barium swallow evaluation when the patient is appropriate and able to participate. Additionally, the patient's son reports, "She does that with the liquids. With solids she is okay but with the liquids she coughs and coughs." The clinician requested clarification from the son, who appears to communicate to the clinician the patient consistently displayed s/s of suspected aspiration throughout meals with thin liquids prior to admission. The information provided by the son in correlation to the patient's most recent chest exam, provides additional necessity of a modified barium swallow prior to re-initiation of an oral diet if an oral diet recommendation becomes appropriate. The above recommendations were provided to the RN at completion of the study. Assessment Assessment Current Status: Poor Progress Treatment Plan Continue Plan of Care Speech Short Term Goals Short Term Goals Short Term Goals 1. The patient will tolerate trials of the least restrictive consistency without s/s of suspected aspiration. Time Frame-STG: Two Days. Speech Intermediate Goals System Trainer Goals 1. The patient will demonstrate tolerance of the least restrictive diet consistency without s/s of suspected aspiration. Time Frame: Six Weeks. Speech-Plan Treatment Plan Speech Therapy Treatment Plan: Continue Plan of Care Treatment Duration: Aug 25, 2022 Frequency: 2 times per week Estimated Hrs Per Day: .25 hour per day Rehab Potential: Poor Safety Risks/Education Teaching Recipient: Patient, Family Teaching Methods: Discussion Response to Teaching: Reinforcement Needed Education Topics Provided: Results, Recommendations Time Speech Therapy Time In: 11:45 Speech Therapy Time Out: 12:00 Total Billed Time: 15 Billed Treatment Time 1, BRANT SALDANA Aug 23, 2022 13:22
[2022-08-23 15:42] VITALS: BP 195/87
[2022-08-23 20:10] VITALS: BP 163/82
[2022-08-23] MEDS ORDERED: DEXTROSE 50% 50 ML (IMS) SYR IV PRN (20:30)
[2022-08-23] MEDS: D5 NS 1000 ML IV SOLUTION 1,000 ML IV SCH (21:52)
[2022-08-24] VITALS (7 sets, daily range): BP systolic 133–179; BP diastolic 64–81
[2022-08-24] MEDS: PIPERACILLIN SODIUM/TAZOBACTAM 4.5 GM in NS (IVPB) 100 ML IV SCH ×3 (03:55→20:43)
[2022-08-24 05:25] LABS: BASOPHILS % (AUTO) 0 % (0-10); EOSINOPHILS # (AUTO) 0.2 10^3/uL (0.0-0.3); EOSINOPHILS % (AUTO) 2 % (0-10); HEMATOCRIT 26 % (35-52); HEMOGLOBIN 8.1 g/dL (11.5-16.0); LYMPHOCYTES # (AUTO) 1.9 10^3/uL (1.0-4.0); LYMPHOCYTES % (AUTO) 17 % (12-44); MEAN CORPUSCULAR HEMOGLOBIN 29 pg (25-34); MEAN CORPUSCULAR HGB CONC 31 g/dL (32-36); MEAN CORPUSCULAR VOLUME 93 fL (80-99); MEAN PLATELET VOLUME 9.8 fL (9.0-12.2); MONOCYTES # (AUTO) 0.9 10^3/uL (0.0-1.0); MONOCYTES % (AUTO) 9 % (0-12); NEUTROPHILS # (AUTO) 7.7 10^3/uL (1.8-7.8); NEUTROPHILS % (AUTO) 72 % (42-75); PLATELET COUNT 195 10^3/uL (130-400); WHITE BLOOD COUNT 10.7 10^3/uL (4.3-11.0)
[2022-08-24 05:48] LABS: VANCOMYCIN,TROUGH 12.1 UG/ML (10.0-20.0)
[2022-08-24 06:04] LABS: ALBUMIN 2.6 GM/DL (3.2-4.5); BILIRUBIN,TOTAL 0.6 MG/DL (0.1-1.0); CALCIUM 9.9 MG/DL (8.5-10.1); CREATININE SERUM 0.84 MG/DL (0.60-1.30); TOTAL PROTEIN 5.3 GM/DL (6.4-8.2)
--- NOTE | 2022-08-24 06:06 | Progress Note - Surgery ---
HANSA MCKEON 08/24/22 0606: Subjective Date Seen by a Provider: Aug 24, 2022 Time Seen by a Provider: 11:00 Subjective/Events-last exam Patient is improved today, more alert and able to shake head to yes or no questioning. Physical exam elicited no tenderness to palpation. Was lying comfortable in bed. Much less restlessness compared to yesterday Is in less distress, dyspnea improved No signs of blood loss Labs reviewed Objective Exam Vital Signs Date Time Temp Pulse Resp B/P (MAP) Pulse Ox O2 Delivery O2 Flow Rate FiO2 08/24/22 04:09 36.5 80 20 158/75 (102) 95 Nasal Cannula 2.00 08/24/22 01:00 74 08/24/22 00:41 36.7 71 20 162/77 (105) 98 Nasal Cannula 2.00 08/23/22 20:58 Nasal Cannula 2.00 08/23/22 20:10 36.1 84 16 163/82 (109) 100 Nasal Cannula 3.00 08/23/22 19:00 82 08/23/22 15:42 36.4 80 18 195/87 (123) 100 Nasal Cannula 3.00 08/23/22 13:27 82 08/23/22 12:11 36.8 80 21 172/78 (109) 96 Nasal Cannula 2.00 08/23/22 08:00 Nasal Cannula 2.00 08/23/22 07:12 36.4 91 20 181/77 (111) 94 Nasal Cannula 2.00 08/23/22 06:31 99 Nasal Cannula 2.00 I & O 08/24/22 07:00 Intake Total 1000 ml Output Total 1300 ml Balance -300 ml Capillary Refill : Less Than 3 Seconds General Appearance: Chronically ill; No Mild Distress; Thin HEENT: PERRL/EOMI; No Scleral Icterus (L), No Scleral Icterus (R) Neck: Non Tender, Supple Respiratory: Chest Non Tender, No Accessory Muscle Use, No Respiratory Distress Cardiovascular: Regular Rate, Rhythm, No JVD Peripheral Pulses: 1+ Radial Pulses (R), 1+ Radial Pulses (L) Gastrointestinal: non tender, soft, other (gastrostomy tube LLQ) Extremity: Non Tender, No Pedal Edema Neurologic/Psychiatric: Alert; No Oriented x3 Skin: Normal Color, Warm/Dry, Other (Distal nail bed ischemic ) Lymphatic: No Adenopathy Results Lab Laboratory Tests 08/23/22 20:09: Glucometer 65L 08/24/22 05:05: White Blood Count 10.7, Red Blood Count 2.77L, Hemoglobin 8.1L, Hematocrit 26L, Mean Corpuscular Volume 93, Mean Corpuscular Hemoglobin 29, Mean Corpuscular Hemoglobin Concent 31L, Red Cell Distribution Width 17.6H, Platelet Count 195, Mean Platelet Volume 9.8, Immature Granulocyte % (Auto) 0, Neutrophils (%) (Auto) 72, Lymphocytes (%) (Auto) 17, Monocytes (%) (Auto) 9, Eosinophils (%) (Auto) 2, Basophils (%) (Auto) 0, Neutrophils # (Auto) 7.7, Lymphocytes # (Auto) 1.9, Monocytes # (Auto) 0.9, Eosinophils # (Auto) 0.2, Basophils # (Auto) 0.0, Immature Granulocyte # (Auto) 0.0, Vancomycin Level Trough 12.1 Microbiology 08/22/22 Urine Culture - Preliminary, Resulted Enterococcus faecalis Assessment/Plan Assessment/Plan Assessment/Plan GI bleed-likely upper GI- Monitor and trend hemoglobin- Down to 8.1 from 8.9 yesterday, most likely dilution Transfuse if needed Continue protonix NPO at this time No blood seen in gastrostomy yesterday No surgical intervention at this time Hypoxia Currently on 2 Liters NC Atypical lung infection/Leukocytosis-Improving WBC at 10.7 from 11.5 yesterday Continue on Vancomycin and Zosyn CT showed Tree in [place] nodularity at lung bases TIM Continue hydration UTI Urine culture grew Enterococcus Faecalis Continue antibiotics Elevated liver enzymes Monitor labs Elevated Procalcitonin-Secondary to atypical lung infection Monitor labs PEG tube aspiration Elevated Liver enzymes Vascular Dementia-non verbal Clinical Quality Measures DVT/VTE Risk/Contraindication: Contraindications-Pharm: Other *list below* Other: gi bleed JESUS ALBERTO SMITH DO 08/25/22 0025: Subjective Subjective/Events-last exam Patient answering questions. Not having any pain. Answers questions but confused. Hgb minimal drop. No family at bedside. Objective Exam General Appearance: No Apparent Distress, Chronically ill, Thin HEENT: PERRL/EOMI, Normal ENT Inspection Neck: Non Tender, Supple Respiratory: Chest Non Tender, No Accessory Muscle Use, No Respiratory Distress Cardiovascular: Regular Rate, Rhythm, No JVD Gastrointestinal: non tender, soft, other (gastrostomy tube LUQ) Extremity: Non Tender, No Pedal Edema Neurologic/Psychiatric: Alert; No Oriented x3 Skin: Normal Color, Warm/Dry Lymphatic: No Adenopathy Assessment/Plan Assessment/Plan Assessment/Plan upper Gi bleed, hgb still in 8 range vascular dementia atyplical lung infection UTI Continue medical management no surgical intervention at this time Continue abx Supervisory-Addendum Brief Verification & Attestation Participated in pt care: history, MDM, physical Personally performed: exam, history, MDM, supervision of care Care discussed with: Medical Student Procedures: n/a Results interpretation: Verified all documentation Verification and Attestation of Medical Student E/M Service A medical student performed and documented this service in my presence. I reviewed and verified all information documented by the medical student and made modifications to such information, when appropriate. I personally performed the physical exam and medical decision making. Jesus Alberto Smith, Aug 24, 2022,23:24 HANSA MCKEON Aug 24, 2022 06:06 JESUS ALBERTO SMITH DO Aug 25, 2022 00:25
[2022-08-24] MEDS: TROUGH ORDER-PHARMACY XX ONE ×2 (06:08→06:09)
[2022-08-24] MEDS: VANCOMYCIN 750 MG/NS 250 ML IVPB IV SCH ×2 (06:30)
[2022-08-24] MEDS: D5 NS 1000 ML IV SOLUTION 1,000 ML IV SCH ×2 (06:57→18:03)
[2022-08-24] MEDS: DOCUSATE SODIUM 100 MG (COLACE) CAP PO SCH ×2 (08:35→21:00)
[2022-08-24] MEDS: ACETAMINOPHEN 325 MG TABLET PO PRN ×2 (08:35→20:43)
[2022-08-24] MEDS: SENNOSIDES 8.6 MG (SENOKOT) TAB PO SCH ×2 (08:35→21:00)
[2022-08-24] MEDS: PANTOPRAZOLE 40 MG (PROTONIX) VIAL IV SCH (08:35)
[2022-08-24] MEDS: amLODIPine 5 MG (NORVASC) TAB PO SCH (08:35)
--- NOTE | 2022-08-24 08:38 | Speech Therapy Daily Note ---
Speech Daily Progress Note Subjective Date Seen by Provider: Aug 24, 2022 Time Seen by Provider: 08:14 The patient was lying in bed, eyes opened, upon entrance to her room by the clinician. The patient made eye contact with the clinician when her name was verbally spoken. The patient was positioned upright in bed for safe swallowing. The patient remains on 2L supplemental oxygen via nasal cannula with SpO2% at 99% prior to, throughout, and following P.O. trials. Objective The patient displays 60% accuracy with simple yes and no questions provided by the clinician on this date. The patient's vocal quality is aphonic. The clinician provided the rationale for the skilled therapy session to which the patient responded, "I can't." The clinician provided gentle encouragement for participation. The patient was provided one ice chip, three half teaspoons of water (thin liquid), and multiple attempts of a coated teaspoon with applesauce (the patient refused). The patient was able to remove the ice chip from the teaspoon with appropriate lip rounding. The patient did not manipulate the ice chip in the oral cavity, allowing for suspected complete posterior bolus loss. Following 75 seconds, the patient elicited a pharyngeal swallow followed by an immediate, rigorous cough. The patient required maximum verbal cueing and direct modeling from the clinician to remove the half teaspoon of water from the spoon as the clinician would not "dump" the contents into the patient's oral cavity for improved patient safety. Following multiple attempts, the patient removed three half teaspoons of water. The patient displayed an immediate, rigorous cough following two of the three teaspoons. The clinician attempted a coated teaspoon of puree. The teaspoon was brought to the patient's lips, however, the patient said, "no." The clinician provided gentle tactile stimulate with the teaspoon, however, the patient continued refusal, not opening the oral cavity for the bolus. At this time, the treatment session was ended. Recommendations: - The patient should remain N.P.O. - Pending clearance from the physician, the patient should receive total nutrition, hydration and medication via PEG tube. - The named account executive has placed PEG tube feeding recommendations for nutrition in the patient's chart, however, has also deferred the recommendation for PEG tube use to the patient's medical team. - Frequent and excellent oral care to reduce the transfer of oral bacteria to t he lungs should aspiration of secretions occur. - Speech pathology to re-assess the oropharyngeal swallowing function, as merissa carvalho. At this time, the speech pathologist suspects a poor prognosis for the oropharyngeal swallowing function. Due to the patient's history of fluctuating aspiration, the patient's son's reports of suspected s/s of suspected aspiration with thin liquids, the patient's current level of lethargy, and her inability to consistency follow verbal instructions, the clinician suspects a high risk of aspiration with P.O. intake. Prior to recommendations of an oral diet, speech pathology would recommend a modified barium swallow evaluation when/if the patient is appropriate and able to participate. The above recommendations were provided to the RN at completion of the study. Assessment Assessment Current Status: Poor Progress Treatment Plan Continue Plan of Care Speech Short Term Goals Short Term Goals Short Term Goals 1. The patient will tolerate trials of the least restrictive consistency without s/s of suspected aspiration. Time Frame-STG: Two Days. Speech Long-Term Goals Long-Term Goals 1. The patient will demonstrate tolerance of the least restrictive diet consistency without s/s of suspected aspiration. Time Frame: Six Weeks. Speech-Plan Treatment Plan Speech Therapy Treatment Plan: Continue Plan of Care Treatment Duration: Aug 25, 2022 Frequency: 2 times per week Estimated Hrs Per Day: .25 hour per day Rehab Potential: Poor Safety Risks/Education Teaching Recipient: Patient Teaching Methods: Discussion Response to Teaching: Unable to Comprehend Education Topics Provided: Results, Recommendations, Plan of Care Time Speech Therapy Time In: 08:14 Speech Therapy Time Out: 08:30 DATE: Aug 24, 2022 Total Billed Time: 16 Billed Treatment Time 1, BRANT SALDANA Aug 24, 2022 08:38
[2022-08-24] MEDS: POTASSIUM CL 10MEQ/50ML IVPB 50 ML IV SCH ×5 (13:09→15:56)
--- NOTE | 2022-08-24 13:21 | Progress Note ---
ERNESTO DVELIN 08/24/22 1321: Subjective Date Seen by a Provider: Aug 24, 2022 Time Seen by a Provider: 11:00 Subjective/Events-last exam Patient was unable to be aroused this morning, no family at bedside. Patient's hemoglobin is down to 8.1 today from 8.9 yesterday. Physical exam unremarkable. Patient's condition largely unchanged from yesterday Objective Exam Last Set of Vital Signs Vital Signs Date Time Temp Pulse Resp B/P (MAP) Pulse Ox O2 Delivery O2 Flow Rate FiO2 08/24/22 12:09 36.3 70 21 137/65 (89) 97 Nasal Cannula 2.50 Capillary Refill : Less Than 3 Seconds I&O Intake and Output 08/24/22 00:00 Intake Total 1000 ml Output Total 2050 ml Balance -1050 ml Intake Oral 0 ml IV Total 1000 ml Output Urine Total 2050 ml # Bowel Movements 2 General: Other (Unable to be aroused) HEENT: Atraumatic Neck: Supple Lungs: Clear to Auscultation Heart: Regular Rate, No Murmurs Extremities: No Clubbing, No Edema Skin: No Significant Lesion Results Lab Laboratory Tests 08/23/22 20:09: Glucometer 65L 08/24/22 05:05: White Blood Count 10.7, Red Blood Count 2.77L, Hemoglobin 8.1L, Hematocrit 26L, Mean Corpuscular Volume 93, Mean Corpuscular Hemoglobin 29, Mean Corpuscular Hem oglobin Concent 31L, Red Cell Distribution Width 17.6H, Platelet Count 195, Mean Platelet Volume 9.8, Immature Granulocyte % (Auto) 0, Neutrophils (%) (Auto) 72, Lymphocytes (%) (Auto) 17, Monocytes (%) (Auto) 9, Eosinophils (%) (Auto) 2, Basophils (%) (Auto) 0, Neutrophils # (Auto) 7.7, Lymphocytes # (Auto) 1.9, Monocytes # (Auto) 0.9, Eosinophils # (Auto) 0.2, Basophils # (Auto) 0.0, Immature Granulocyte # (Auto) 0.0, Sodium Level 142, Potassium Level 3.0L, Chloride Level 109H, Carbon Dioxide Level 22, Anion Gap 11, Blood Urea Nitrogen 25H, Creatinine 0.84, Estimat Glomerular Filtration Rate 67, BUN/Creatinine Ratio 30, Glucose Level 113H, Calcium Level 9.9, Corrected Calcium 11.0H, Total Bilirubin 0.6, Aspartate Amino Transf (AST/SGOT) 19, Alanine Aminotransferase (ALT/SGPT) 65H, Alkaline Phosphatase 170H, Total Protein 5.3L, Albumin 2.6L, Vancomycin Level Trough 12.1 Microbiology 08/22/22 Urine Culture - Preliminary, Resulted Enterococcus faecalis Assessment/Plan Assessment/Plan Assess & Plan/Chief Complaint Pneumonia Hypoxia UTI- facility acquired Vascular dementia GI bleed Currently on vancomycin and zosyn Continue oxygen Surgery consulted Continue protonix Starting on clears through PEG tube Clinical Quality Measures Admission Status Admission Dx Hypoxia Leukocytosis Possible GI bleed HTN Hx of afib Vascular dementia TIM Continue oxygen Currently on vancomycin and Zosyn Surgery consulted for possible GI bleed Continue IV fluids DVT/VTE Risk/Contraindication: Contraindications-Pharm: Other *list below* Other: gi bleed FARIHA PARNELL DO 08/25/22 0509: Subjective Subjective/Events-last exam Patient appears to be more declined Labs improved Will start clear liquids per tube Extremely poor prognosis Family in denial Objective Exam General: Other (Unable to be aroused) Lungs: Clear to Auscultation Heart: Regular Rate Assessment/Plan Assessment/Plan Assess & Plan/Chief Complaint Start clear liquids per PEG tube Supervisory-Addendum Brief Verification & Attestation Participated in pt care: history, MDM, physical Personally performed: exam, history, MDM, supervision of care Care discussed with: Medical Student Procedures: n/a Results interpretation: Verified all documentation Verification and Attestation of Medical Student E/M Service A medical student performed and documented this service in my presence. I reviewed and verified all information documented by the medical student and made modifications to such information, when appropriate. I personally performed the physical exam and medical decision making. Fariha Parnell Aug 25, 2022,05:08 ERNESTO DEVLIN Aug 24, 2022 13:21 FARIHA PARNELL DO Aug 25, 2022 05:09
[2022-08-24] MEDS: cloNIDine 0.1 MG (CATAPRES) TAB PO PRN (20:43)
[2022-08-25 00:30] VITALS: BP 140/61
[2022-08-25] MEDS: PIPERACILLIN SODIUM/TAZOBACTAM 4.5 GM in NS (IVPB) 100 ML IV SCH ×3 (03:08→19:58)
[2022-08-25] MEDS: D5 NS 1000 ML IV SOLUTION 1,000 ML IV SCH ×3 (03:08→19:59)
[2022-08-25 03:11] VITALS: BP 162/76
[2022-08-25] MEDS: VANCOMYCIN 750 MG/NS 250 ML IVPB IV SCH ×2 (05:48)
[2022-08-25 06:01] LABS: BASOPHILS % (AUTO) 0 % (0-10); EOSINOPHILS # (AUTO) 0.3 10^3/uL (0.0-0.3); EOSINOPHILS % (AUTO) 3 % (0-10); HEMATOCRIT 25 % (35-52); HEMOGLOBIN 7.7 g/dL (11.5-16.0); LYMPHOCYTES # (AUTO) 2.3 10^3/uL (1.0-4.0); LYMPHOCYTES % (AUTO) 25 % (12-44); MEAN CORPUSCULAR HEMOGLOBIN 29 pg (25-34); MEAN CORPUSCULAR HGB CONC 31 g/dL (32-36); MEAN CORPUSCULAR VOLUME 93 fL (80-99); MEAN PLATELET VOLUME 10.3 fL (9.0-12.2); MONOCYTES # (AUTO) 0.9 10^3/uL (0.0-1.0); MONOCYTES % (AUTO) 9 % (0-12); NEUTROPHILS # (AUTO) 5.9 10^3/uL (1.8-7.8); NEUTROPHILS % (AUTO) 63 % (42-75); PLATELET COUNT 188 10^3/uL (130-400); WHITE BLOOD COUNT 9.4 10^3/uL (4.3-11.0)
[2022-08-25 06:21] LABS: ALBUMIN 2.5 GM/DL (3.2-4.5); BILIRUBIN,TOTAL 0.6 MG/DL (0.1-1.0); CALCIUM 9.4 MG/DL (8.5-10.1); CREATININE SERUM 0.78 MG/DL (0.60-1.30); POTASSIUM 3.2 MMOL/L (3.6-5.0); TOTAL PROTEIN 5.2 GM/DL (6.4-8.2)
[2022-08-25 07:21] VITALS: BP_SYST 150
[2022-08-25] MEDS: PANTOPRAZOLE 40 MG (PROTONIX) VIAL IV SCH (08:47)
[2022-08-25] MEDS: SENNOSIDES 8.6 MG (SENOKOT) TAB PO SCH ×2 (08:47→19:48)
[2022-08-25] MEDS: DOCUSATE SODIUM 100 MG (COLACE) CAP PO SCH ×2 (08:47→19:47)
[2022-08-25] MEDS: amLODIPine 5 MG (NORVASC) TAB PO SCH (08:47)
--- NOTE | 2022-08-25 09:37 | Speech Therapy Daily Note ---
Speech Daily Progress Note Subjective Date Seen by Provider: Aug 25, 2022 Time Seen by Provider: 08:10 The patient was lying in bed, eyes opened, upon entrance to her room by the clinician. The patient made immediate eye contact when her name was spoken in a verbal greeting from the clinician. The patient does attempt verbalization, however, her speech is not intelligible to the clinician. The patient was positioned upright for safe swallowing. The patient is currently receiving 3L supplemental oxygen via nasal cannula with SpO2% at 99% (prior to, during, and following P.O. trials). Objective The patient's voice quality is harsh and breathy. The oral cavity is clean, yet dry. The patient displays increased ability to follow verbal instructions on this date. Additionally, the patient displays slightly improved alertness and participation throughout the treatment session. The patient is provided four ice chips, eight half teaspoon of water, and five half teaspoons of puree. The patient orally accepts each bolus on this date, by rounding her lips to remove the bolus from the teaspoon. The patient displays increased oral and lingual manipulation of the ice chip, actively demonstrating mastication. Improved timing of the pharyngeal swallow trigger is achieved. The patient displays an immediate wet vocal quality and subtle throat clearing behaviors following the swallows of thin liquid and ice chips. Following the final half teaspoon, an immediate rigorous cough was displayed with continuous throat clearing. The clinician attempted a thickened consistency of applesauce. Initially, the patient refused, however, accepted with gentle encouragement from the clinician. The patient continues with subtle throat clearing and increasingly wet vocal quality. Following the final teaspoon, a second rigorous cough was displayed. The coughing response continued with the subsequent bolus provided (thin liquid half teaspoon). Once the patient returned to baseline (coughing ceased), the clinician ended the treatment session. The patient's most recent video swallow evaluation report was reviewed by the clinician. The report does note moderate pharyngeal residue following the swallow. The clinician highly suspects the patient has continued to display pharyngeal residue and the pharyngeal residue is causing aspiration following the swallow (due to the continuous throat clearing and delayed coughing post swallow response). Recommendations: - The patient should remain N.P.O. with total nutrition, hydration, and medication via PEG. - Frequent and excellent oral care to reduce the transfer of oral bacteria to the lungs should aspiration of secretions occur. - Speech pathology to re-assess the oropharyngeal swallowing function, as appropriate. At this time, the speech pathologist suspects a poor prognosis for the oropharyngeal swallowing function. Due to the patient's history of fluctuating aspiration, the patient's son's reports of suspected s/s of suspected aspiration with thin liquids, the patient's current level of lethargy, and her inability to consistency follow verbal instructions, the clinician suspects a high risk of aspiration with P.O. intake. Prior to recommendations of an oral diet, speech pathology would recommend a modified barium swallow evaluation when/if the patient is appropriate and able to participate. Assessment Assessment Current Status: Poor Progress Treatment Plan Continue Plan of Care Speech Short Term Goals Short Term Goals Short Term Goals 1. The patient will tolerate trials of the least restrictive consistency without s/s of suspected aspiration. Time Frame-STG: Two Days. Speech Profile Saw Operator Goals Profile Saw Operator Goals 1. The patient will demonstrate tolerance of the least restrictive diet consistency without s/s of suspected aspiration. Time Frame: Six Weeks. Speech-Plan Treatment Plan Speech Therapy Treatment Plan: Continue Plan of Care Treatment Duration: Aug 25, 2022 Frequency: 2 times per week Estimated Hrs Per Day: .25 hour per day Rehab Potential: Poor Safety Risks/Education Teaching Recipient: Patient Teaching Methods: Discussion Response to Teaching: Unable to Comprehend Education Topics Provided: Results, Recommendations, Plan of Care Time Speech Therapy Time In: 08:10 Speech Therapy Time Out: 08:30 DATE: Aug 25, 2022 Total Billed Time: 20 Billed Treatment Time 1RAIN ELIZABETH Aug 25, 2022 09:37
[2022-08-25] MEDS: ACETAMINOPHEN 325 MG TABLET PO PRN ×2 (09:44→16:21)
[2022-08-25] MEDS ORDERED: HYPOCHLOROUS ACID/NaCl (VASHE) 250 ML IR PRN (10:15)
--- NOTE | 2022-08-25 10:37 | Progress Note - Surgery ---
HANSA MCKEON 08/25/22 1037: Subjective Date Seen by a Provider: Aug 25, 2022 Time Seen by a Provider: 10:28 Subjective/Events-last exam Patient is improved today, more alert and able to shake head to yes or no questioning. Was able to point to pain. Physical exam elicited pain on left shoulder, otherwise no tenderness noted Was lying comfortable in bed. Much less restlessness compared to yesterday Is in less distress, dyspnea improved Did have bowel movement yesterday- was reported to be dark. Labs reviewed Objective Exam Vital Signs Date Time Temp Pulse Resp B/P (MAP) Pulse Ox O2 Delivery O2 Flow Rate FiO2 08/25/22 07:21 36.0 64 18 150/ Nasal Cannula 69.00 3.00 08/25/22 03:11 36.7 59 16 162/76 (104) 98 Nasal Cannula 3.00 08/25/22 00:30 36.4 56 17 140/61 (87) 98 Nasal Cannula 2.50 08/24/22 21:50 66 133/64 (87) 08/24/22 21:09 98 Nasal Cannula 2.50 08/24/22 20:33 Nasal Cannula 2.00 08/24/22 19:37 36.5 75 18 179/81 (113) 98 Nasal Cannula 4.00 08/24/22 15:28 36.5 67 22 163/68 (99) 97 Nasal Cannula 2.50 08/24/22 12:09 36.3 70 21 137/65 (89) 97 Nasal Cannula 2.50 08/24/22 10:54 97 Nasal Cannula 2.50 I & O 08/25/22 07:00 Intake Total 0 ml Output Total 1425 ml Balance -1425 ml Capillary Refill : Less Than 3 Seconds General Appearance: No Apparent Distress, Chronically ill, Thin HEENT: PERRL/EOMI, Normal ENT Inspection Neck: Non Tender, Supple Respiratory: Chest Non Tender, No Accessory Muscle Use, No Respiratory Distress Cardiovascular: Regular Rate, Rhythm, No JVD Peripheral Pulses: 1+ Radial Pulses (R), 1+ Radial Pulses (L) Gastrointestinal: non tender, soft, other (gastrostomy tube LUQ) Extremity: Non Tender, No Pedal Edema, Other (Left shoulder tender to palpation) Neurologic/Psychiatric: Alert; No Oriented x3 Skin: Normal Color, Warm/Dry Lymphatic: No Adenopathy Results Lab Laboratory Tests 08/25/22 05:20: White Blood Count 9.4, Red Blood Count 2.63L, Hemoglobin 7.7L, Hematocrit 25L, Mean Corpuscular Volume 93, Mean Corpuscular Hemoglobin 29, Mean Corpuscular Hemoglobin Concent 31L, Red Cell Distribution Width 17.5H, Platelet Count 188, Mean Platelet Volume 10.3, Immature Granulocyte % (Auto) 0, Neutrophils (%) (Auto) 63, Lymphocytes (%) (Auto) 25, Monocytes (%) (Auto) 9, Eosinophils (%) (Auto) 3, Basophils (%) (Auto) 0, Neutrophils # (Auto) 5.9, Lymphocytes # (Auto) 2.3, Monocytes # (Auto) 0.9, Eosinophils # (Auto) 0.3, Basophils # (Auto) 0.0, Immature Granulocyte # (Auto) 0.0, Sodium Level 143, Potassium Level 3.2L, Chloride Level 114H, Carbon Dioxide Level 20L, Anion Gap 9, Blood Urea Nitrogen 15, Creatinine 0.78, Estimat Glomerular Filtration Rate 73, BUN/Creatinine Ratio 19, Glucose Level 116H, Calcium Level 9.4, Corrected Calcium 10.6H, Total Bilirubin 0.6, Aspartate Amino Transf (AST/SGOT) 16, Alanine Aminotransferase (ALT/SGPT) 52, Alkaline Phosphatase 171H, Total Protein 5.2L, Albumin 2.5L Microbiology 08/22/22 Urine Culture - Preliminary, Resulted Enterococcus faecalis Assessment/Plan Assessment/Plan Assessment/Plan GI bleed-likely upper GI- Monitor and trend hemoglobin- Down to 7.7 from 8.1 yesterday Transfuse if needed Continue protonix Clear liquid at this time Stool still noted to be dark No blood seen in gastrostomy yesterday No surgical intervention at this time Hypoxia Currently on 2 Liters NC Atypical lung infection/Leukocytosis-Improving WBC at 9.4 from 10.5 yesterday Continue on Vancomycin and Zosyn CT showed [place] in [place] nodularity at lung bases TIM-resolved Continue hydration UTI Urine culture grew Enterococcus Faecalis Continue antibiotics Elevated liver enzymes-Improving Monitor labs Elevated Procalcitonin-Secondary to atypical lung infection Monitor labs PEG tube aspiration Vascular Dementia-non verbal Clinical Quality Measures DVT/VTE Risk/Contraindication: Contraindications-Pharm: Other *list below* Other: gi bleed JESUS ALBERTO SMITH DO 08/25/22 1155: Subjective Subjective/Events-last exam Patient alert and follows directions. Patient not having any significant pain. N.p.o. using tube feeds. Breathing okay. Dark bm yesterday. No family present at this time. Denies nausea vomiting fever sweats chills. Objective Exam General Appearance: No Apparent Distress, Chronically ill, Thin HEENT: PERRL/EOMI, Normal ENT Inspection Neck: Non Tender, Supple Respiratory: Chest Non Tender, No Accessory Muscle Use, No Respiratory Distress Cardiovascular: Regular Rate, Rhythm, No JVD Gastrointestinal: non tender, soft, other (gastrostomy tube LUQ) Extremity: Normal Inspection, Non Tender Neurologic/Psychiatric: Alert; No Oriented x3 Skin: Normal Color, Warm/Dry Lymphatic: No Adenopathy Assessment/Plan Assessment/Plan Assessment/Plan GI bleed-likely upper GI-Hypoxia Atypical lung infection/Leukocytosis- TIM-resolved UTI PEG tube aspiration Vascular Dementia-non verbal continue tube feeds Protonix Follow hgb and transfuse as needed. Supervisory-Addendum Brief Verification & Attestation Participated in pt care: history, MDM, physical Personally performed: exam, history, MDM, supervision of care Care discussed with: Medical Student Procedures: n/a Results interpretation: Verified all documentation Verification and Attestation of Medical Student E/M Service A medical student performed and documented this service in my presence. I reviewed and verified all information documented by the medical student and made modifications to such information, when appropriate. I personally performed the physical exam and medical decision making. Jesus Alberto Smith, Aug 25, 2022,11:55 HANSA MCKEON Aug 25, 2022 10:37 JESUS ALBERTO SMITH DO Aug 25, 2022 11:55
--- NOTE | 2022-08-25 11:40 | Progress Note ---
Subjective Date Seen by a Provider: Aug 25, 2022 Time Seen by a Provider: 10:00 Subjective/Events-last exam Pt is about the same Hemoglobin is 7.7 Potassium low Family thinks she has thrush so we will initiate Diflucan PEG tube will need tube feedings per dietary Overall very poor prognosis Review of Systems Neurological: Confusion Objective Exam Last Set of Vital Signs Vital Signs Date Time Temp Pulse Resp B/P (MAP) Pulse Ox O2 Delivery O2 Flow Rate FiO2 08/25/22 08:00 98 Nasal Cannula 3.00 08/25/22 07:21 36.0 64 18 150/ Capillary Refill : Less Than 3 Seconds I&O Intake and Output 08/25/22 00:00 Intake Total 0 ml Output Total 1525 ml Balance -1525 ml Intake Oral 0 ml Output Urine Total 1525 ml # Bowel Movements 2 General: Other (semi-comatose) Lungs: Clear to Auscultation Heart: Regular Rate Results Lab Laboratory Tests 08/25/22 05:20: White Blood Count 9.4, Red Blood Count 2.63L, Hemoglobin 7.7L, Hematocrit 25L, Mean Corpuscular Volume 93, Mean Corpuscular Hemoglobin 29, Mean Corpuscular Hemoglobin Concent 31L, Red Cell Distribution Width 17.5H, Platelet Count 188, Mean Platelet Volume 10.3, Immature Granulocyte % (Auto) 0, Neutrophils (%) (Auto) 63, Lymphocytes (%) (Auto) 25, Monocytes (%) (Auto) 9, Eosinophils (%) (Auto) 3, Basophils (%) (Auto) 0, Neutrophils # (Auto) 5.9, Lymphocytes # (Auto) 2.3, Monocytes # (Auto) 0.9, Eosinophils # (Auto) 0.3, Basophils # (Auto) 0.0, Immature Granulocyte # (Auto) 0.0, Sodium Level 143, Potassium Level 3.2L, Chloride Level 114H, Carbon Dioxide Level 20L, Anion Gap 9, Blood Urea Nitrogen 15, Creatinine 0.78, Estimat Glomerular Filtration Rate 73, BUN/Creatinine Ratio 19, Glucose Level 116H, Calcium Level 9.4, Corrected Calcium 10.6H, Total Bilirubin 0.6, Aspartate Amino Transf (AST/SGOT) 16, Alanine Aminotransferase (ALT/SGPT) 52, Alkaline Phosphatase 171H, Total Protein 5.2L, Albumin 2.5L Microbiology 08/22/22 Urine Culture - Preliminary, Resulted Enterococcus faecalis Assessment/Plan Assessment/Plan Assess & Plan/Chief Complaint Start TF per PEG tube Clinical Quality Measures Admission Status Admission Dx Assessment: Hypoxia Pneumonia UTI facility acquired GI bleed Vascular dementia PEG tube Plan: IV antibiotics Needs DNR Surgery consultation patient is DVT/VTE Risk/Contraindication: Contraindications-Pharm: Other *list below* Other: gi bleed SATINDER MARRUFO DO Aug 25, 2022 11:40
[2022-08-25 12:11] VITALS: BP 143/63
[2022-08-25] MEDS: LACTOBACILLUS ACIDOPHILUS (PROBIOTIC) CAPSULE PEG SCH ×2 (12:14→16:21)
[2022-08-25 15:36] VITALS: BP 175/76
--- NOTE | 2022-08-25 17:36 | Physician Query Clarification ---
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 Pneumonitis due to inhalation of food and vomit, present on admission 2. Other explanation of clinical findings 3. Unable to determine (no explanation for clinical findings) Please clarify and document your clinical opinion in the progress notes and discharge summary including the definitive and/or presumptive diagnosis, (suspected or probable), related to the above clinical findings. Please include clinical findings supporting your diagnosis. Christi Aguilar RN, MSN [phone] [email or web address] PHYSICIAN RESPONSE: Based on the clinical findings in the record, please respond to the query above on this document as an addendum. Physician Response: Physician Response 1 If you have questions please contact: Automated Process Operator: Ext: Thank you for your time and cooperation. Clinical Vinyl Hanger/Automated Process Operator This is a permanent part of the medical record CHRISTI AGUILAR Aug 25, 2022 17:35 SATINDER MARRUFO DO Aug 25, 2022 20:23
--- NOTE | 2022-08-25 17:36 | Physician Query Clarification ---
Physician Query-General Query to Physician: The medical record reflects the following clinical evidence: Clinical Indicators: Shortness of air at rest on admission, was started on oxygen at 5 L has been as high as 6 L, respiratory rate 20 on admission has been mostly 18-20, initial O2 sats 77% on room air O2 sat 94 to 97% on oxygen, was 96% on 5 L in ER (P/F=215) Risk Factor(s): Advanced age, Pneumonia Treatment: Continuous Supplemental 02 up to 6L, Infection treatment: Vancomycin IV, normal saline 500 mL, added Zosyn, Speech Therapy eval/Dysphagia screening 1. Acute respiratory failure with hypoxia, present on admission 2. Other explanation of clinical findings 3. Unable to determine (no explanation for clinical findings) Please clarify and document your clinical opinion in the progress notes and discharge summary including the definitive and/or presumptive diagnosis, (suspected or probable), related to the above clinical findings. Please include clinical findings supporting your diagnosis. Christi Aguilar RN, MSN Clinical Documentation Film Archivist [phone] [email or web address] PHYSICIAN RESPONSE: Based on the clinical findings in the record, please respond to the query above on this document as an addendum. Physician Response: Physician Response 1 If you have questions please contact: Licensed Practical Nurse Clinic Nurse: Ext: Thank you for your time and cooperation. Clinical Senior Foreman/Licensed Practical Nurse Clinic Nurse This is a permanent part of the medical record CHRISTI AGUILAR Aug 25, 2022 17:36 SATINDER MARRUFO DO Aug 25, 2022 20:24
[2022-08-25 19:08] VITALS: BP 165/66
[2022-08-26] VITALS (8 sets, daily range): BP systolic 113–172; BP diastolic 58–94
[2022-08-26] MEDS: PIPERACILLIN SODIUM/TAZOBACTAM 4.5 GM in NS (IVPB) 100 ML IV SCH ×3 (03:35→20:30)
[2022-08-26] MEDS: cloNIDine 0.1 MG (CATAPRES) TAB PO PRN (03:38)
[2022-08-26] MEDS: ACETAMINOPHEN 325 MG TABLET PO PRN ×4 (03:39→22:01)
[2022-08-26 05:42] LABS: BASOPHILS % (AUTO) 0 % (0-10); HEMOGLOBIN 7.6 g/dL (11.5-16.0); MEAN CORPUSCULAR VOLUME 94 fL (80-99)
[2022-08-26 05:44] LABS: EOSINOPHILS # (AUTO) 0.2 10^3/uL (0.0-0.3); EOSINOPHILS % (AUTO) 3 % (0-10); HEMATOCRIT 24 % (35-52); LYMPHOCYTES # (AUTO) 1.5 10^3/uL (1.0-4.0); LYMPHOCYTES % (AUTO) 18 % (12-44); MEAN CORPUSCULAR HEMOGLOBIN 29 pg (25-34); MEAN CORPUSCULAR HGB CONC 31 g/dL (32-36); MEAN PLATELET VOLUME 10.1 fL (9.0-12.2); MONOCYTES # (AUTO) 0.8 10^3/uL (0.0-1.0); MONOCYTES % (AUTO) 9 % (0-12); NEUTROPHILS # (AUTO) 5.6 10^3/uL (1.8-7.8); NEUTROPHILS % (AUTO) 69 % (42-75); PLATELET COUNT 224 10^3/uL (130-400)
[2022-08-26 06:13] LABS: ALBUMIN 2.3 GM/DL (3.2-4.5); BILIRUBIN,TOTAL 0.4 MG/DL (0.1-1.0); CALCIUM 8.6 MG/DL (8.5-10.1); CREATININE SERUM 0.74 MG/DL (0.60-1.30); POTASSIUM 2.9 MMOL/L (3.6-5.0); TOTAL PROTEIN 4.8 GM/DL (6.4-8.2)
--- NOTE | 2022-08-26 06:19 | Progress Note - Surgery ---
HANSA MCKEON 08/26/22 0619: Subjective Date Seen by a Provider: Aug 26, 2022 Time Seen by a Provider: 06:14 Subjective/Events-last exam Patient is laying in bed relaxing comfortably Physical exam elicited no pain except in her left shoulder Last reported bowel movement yesterday was loose and less dark compared to yesterday Tube feeding have begun, no blood seen in tube Labs reviewed Objective Exam Vital Signs Date Time Temp Pulse Resp B/P (MAP) Pulse Ox O2 Delivery O2 Flow Rate FiO2 08/26/22 04:16 36.5 88 16 172/94 (120) 95 Nasal Cannula 3.00 08/26/22 00:00 36.3 81 18 124/71 (88) 97 Nasal Cannula 3.00 08/25/22 21:28 Nasal Cannula 2.50 08/25/22 20:08 Nasal Cannula 3.00 08/25/22 19:08 37.1 82 19 165/66 (99) 98 Nasal Cannula 3.00 08/25/22 15:36 36.3 76 19 175/76 (109) 91 Nasal Cannula 2.00 08/25/22 12:11 35.8 54 18 143/63 (89) 98 Nasal Cannula 3.00 08/25/22 08:00 98 Nasal Cannula 3.00 08/25/22 07:21 36.0 64 18 150/ Nasal Cannula 69.00 3.00 I & O 08/26/22 07:00 Intake Total 2640 ml Output Total 1800 ml Balance 840 ml Capillary Refill : Less Than 3 Seconds General Appearance: No Apparent Distress, Chronically ill, Thin HEENT: PERRL/EOMI, Normal ENT Inspection, Pale Conjunctivae (L), Pale Conjunctivae (R) Neck: Non Tender, Supple Respiratory: Chest Non Tender, No Accessory Muscle Use, No Respiratory Distress Cardiovascular: Regular Rate, Rhythm, No JVD Peripheral Pulses: 1+ Radial Pulses (R), 1+ Radial Pulses (L) Gastrointestinal: non tender, soft, other (gastrostomy tube LUQ, no blood at this time) Extremity: Normal Inspection, Non Tender, Other (Left shoulder tender to palpation) Neurologic/Psychiatric: Alert; No Oriented x3 Skin: Normal Color, Warm/Dry Lymphatic: No Adenopathy Results Lab Laboratory Tests 08/26/22 05:00: Sodium Level 141, Potassium Level 2.9L, Carbon Dioxide Level 19L, Anion Gap 11, Blood Urea Nitrogen 12, Creatinine 0.74, Estimat Glomerular Filtration Rate 78, BUN/Creatinine Ratio 16, Glucose Level 172H, Calcium Level 8.6, Corrected Calcium 10.0, Total Bilirubin 0.4, Aspartate Amino Transf (AST/SGOT) 18, Alanine Aminotransferase (ALT/SGPT) 42, Alkaline Phosphatase 149H, Total Protein 4.8L, Albumin 2.3L Microbiology 08/22/22 Urine Culture - Final, Complete Enterococcus faecalis Enterococcus faecalis#2 Assessment/Plan Assessment/Plan Assessment/Plan GI bleed-likely upper GI Hypoxia Atypical lung infection/ Leukocytosis-currently in range TIM-resolved UTI PEG tube aspiration Vascular Dementia-non verbal Continue tube feeds Continue Protonix Follow hemoglobin and transfuse as needed- Currently 7.6 from 7.7 yesterday Continue to check for signs of blood loss Needs DNR Clinical Quality Measures DVT/VTE Risk/Contraindication: Contraindications-Pharm: Other *list below* Other: gi bleed JESUS ALBERTO SMITH DO 08/26/22 1606: Subjective Subjective/Events-last exam Patient laying in bed. Hgb stable Tolerating tube feeds. No family at bedside. Patient fatigued. No new complaints. Objective Exam General Appearance: No Apparent Distress, Chronically ill, Thin HEENT: PERRL/EOMI, Normal ENT Inspection Neck: Non Tender, Supple Respiratory: Chest Non Tender, No Accessory Muscle Use, No Respiratory Distress Cardiovascular: Regular Rate, Rhythm, No JVD Gastrointestinal: non tender, soft, other (gastrostomy tube LUQ, no blood at this time) Extremity: Normal Inspection, Non Tender Neurologic/Psychiatric: Alert; No Oriented x3 Skin: Normal Color, Warm/Dry Lymphatic: No Adenopathy Assessment/Plan Assessment/Plan Assessment/Plan GI bleed-likely upper GI Hypoxia Atypical lung infection/ Leukocytosis TIM-resolved UTI PEG tube aspiration Vascular Dementia-non verbal Continue tube feeds Continue Protonix Follow hemoglobin and transfuse as needed- Currently stable 7.6 from 7.7 yesterday Continue to check for signs of blood loss Supervisory-Addendum Brief Verification & Attestation Participated in pt care: history, MDM, physical Personally performed: exam, history, MDM, supervision of care Care discussed with: Medical Student Procedures: n/a Results interpretation: Verified all documentation Verification and Attestation of Medical Student E/M Service A medical student performed and documented this service in my presence. I reviewed and verified all information documented by the medical student and made modifications to such information, when appropriate. I personally performed the physical exam and medical decision making. Jesus Alberto Smith, Aug 26, 2022,16:06 HANSA MCKEON Aug 26, 2022 06:19 JESUS ALBERTO SMITH DO Aug 26, 2022 16:06
[2022-08-26] MEDS: VANCOMYCIN 750 MG/NS 250 ML IVPB IV SCH ×2 (06:38)
[2022-08-26] MEDS: LACTOBACILLUS ACIDOPHILUS (PROBIOTIC) CAPSULE PEG SCH ×4 (08:52→17:54)
[2022-08-26] MEDS: D5 NS 1000 ML IV SOLUTION 1,000 ML IV SCH ×3 (09:36→18:50)
[2022-08-26] MEDS: SENNOSIDES 8.6 MG (SENOKOT) TAB PO SCH ×2 (09:36→20:31)
[2022-08-26] MEDS: amLODIPine 5 MG (NORVASC) TAB PO SCH ×2 (09:36→09:59)
[2022-08-26] MEDS: DOCUSATE SODIUM 100 MG (COLACE) CAP PO SCH ×2 (09:36→20:31)
[2022-08-26] MEDS: fluCOnazole (DIFLUCAN) 100 MG TAB PEG SCH (09:59)
[2022-08-26] MEDS: PANTOPRAZOLE 40 MG (PROTONIX) VIAL IV SCH (09:59)
--- NOTE | 2022-08-26 11:25 | Progress Note - Hospitalist ---
Subjective HPI/CC On Admission Date Seen by Provider: Aug 26, 2022 Time Seen by Provider: 11:21 Subjective/Events-last exam Patient nonverbal does not open eyes but just the active listening with stethoscope leads to nonpurposeful movement of the arms. Nursing staff report that she has been trying to pull lines out requiring mittens which do not appear to be bothering her. No other care problems reported per staff. Objective Exam Vital Signs Vital Signs Date Time Temp Pulse Resp B/P (MAP) Pulse Ox O2 Delivery O2 Flow Rate FiO2 08/26/22 11:11 36.2 67 18 113/58 (76) 98 Nasal Cannula 3.00 Capillary Refill : Less Than 3 Seconds General Appearance: No Apparent Distress, Chronically ill Respiratory: No Accessory Muscle Use, No Respiratory Distress, Other (Scattered rhonchi without wheezing) Cardiovascular: No JVD, No Murmur, Irregularly Irregular Results/Procedures Lab Laboratory Tests 08/26/22 05:00 Patient resulted labs reviewed. Assessment/Plan Assessment and Plan Assess & Plan/Chief Complaint 1. 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 Prognosis extremely poor but family not agreeable to DNR status or consideration for hospice at this time. Continue current medical management. Critical Care Critically Ill Patient Clinical Quality Measures DVT/VTE Risk/Contraindication: Contraindications-Pharm: Other *list below* Other: CAMILLE Dallas MD Aug 26, 2022 11:25
[2022-08-26] MEDS ORDERED: KCL 20 MEQ TAB (K-DUR) PO ONE (20:30)
[2022-08-27] MEDS: D5 NS 1000 ML IV SOLUTION 1,000 ML IV SCH ×3 (01:27→19:58)
[2022-08-27 03:40] VITALS: BP 146/66
[2022-08-27] MEDS: PIPERACILLIN SODIUM/TAZOBACTAM 4.5 GM in NS (IVPB) 100 ML IV SCH ×3 (04:05→19:56)
[2022-08-27] MEDS: ACETAMINOPHEN 325 MG TABLET PO PRN ×3 (04:06→21:19)
[2022-08-27 06:40] LABS: BASOPHILS % (AUTO) 0 % (0-10); EOSINOPHILS # (AUTO) 0.3 10^3/uL (0.0-0.3); EOSINOPHILS % (AUTO) 3 % (0-10); HEMATOCRIT 24 % (35-52); HEMOGLOBIN 7.5 g/dL (11.5-16.0); LYMPHOCYTES % (AUTO) 23 % (12-44); MEAN CORPUSCULAR HEMOGLOBIN 29 pg (25-34); MEAN CORPUSCULAR HGB CONC 31 g/dL (32-36); MEAN CORPUSCULAR VOLUME 95 fL (80-99); MEAN PLATELET VOLUME 9.5 fL (9.0-12.2); MONOCYTES # (AUTO) 0.9 10^3/uL (0.0-1.0); MONOCYTES % (AUTO) 10 % (0-12); NEUTROPHILS # (AUTO) 5.5 10^3/uL (1.8-7.8); NEUTROPHILS % (AUTO) 64 % (42-75); PLATELET COUNT 207 10^3/uL (130-400); WHITE BLOOD COUNT 8.6 10^3/uL (4.3-11.0)
--- NOTE | 2022-08-27 06:53 | Progress Note - Surgery ---
HANSA MCKEON 08/27/22 0653: Subjective Date Seen by a Provider: Aug 27, 2022 Time Seen by a Provider: 11:00 Subjective/Events-last exam Patient is laying in bed relaxing comfortably Physical exam elicited no pain except in her left shoulder Last reported bowel movement yesterday was loose and not dark in color Tube feeding have begun, no blood seen in tube during any feedings Labs reviewed Objective Exam Vital Signs Date Time Temp Pulse Resp B/P (MAP) Pulse Ox O2 Delivery O2 Flow Rate FiO2 08/27/22 03:40 36.3 58 20 146/66 (92) 99 Nasal Cannula 3.00 08/26/22 23:26 36.2 63 20 130/60 (83) 99 Nasal Cannula 3.00 08/26/22 22:40 36.7 72 98 08/26/22 20:30 Nasal Cannula 3.00 08/26/22 20:20 36.7 72 16 121/58 (79) 99 Room Air 08/26/22 16:03 36.6 59 16 149/68 (95) 98 Room Air 08/26/22 11:11 36.2 67 18 113/58 (76) 98 Nasal Cannula 3.00 08/26/22 08:58 Nasal Cannula 3.00 08/26/22 08:27 Nasal Cannula 3.00 08/26/22 07:28 36.3 65 18 135/60 (85) 98 Nasal Cannula 3.00 I & O 08/27/22 07:00 Intake Total 2880 ml Output Total 550 ml Balance 2330 ml Capillary Refill : Less Than 3 Seconds General Appearance: No Apparent Distress, Chronically ill, Thin HEENT: PERRL/EOMI, Normal ENT Inspection Neck: Non Tender, Supple Respiratory: Chest Non Tender, No Accessory Muscle Use, No Respiratory Distress Cardiovascular: Regular Rate, Rhythm, No JVD Peripheral Pulses: 1+ Radial Pulses (R), 1+ Radial Pulses (L) Gastrointestinal: non tender, soft, other (gastrostomy tube LUQ, no blood at this time) Extremity: Normal Inspection, Non Tender Neurologic/Psychiatric: Alert; No Oriented x3 Skin: Normal Color, Warm/Dry Lymphatic: No Adenopathy Results Lab Laboratory Tests 08/27/22 06:31: White Blood Count 8.6, Red Blood Count 2.56L, Hemoglobin 7.5L, Hematocrit 24L, Mean Corpuscular Volume 95, Mean Corpuscular Hemoglobin 29, Mean Corpuscular Hemoglobin Concent 31L, Red Cell Distribution Width 17.4H, Platelet Count 207, Mean Platelet Volume 9.5, Immature Granulocyte % (Auto) 0, Neutrophils (%) (Auto) 64, Lymphocytes (%) (Auto) 23, Monocytes (%) (Auto) 10, Eosinophils (%) (Auto) 3, Basophils (%) (Auto) 0, Neutrophils # (Auto) 5.5, Lymphocytes # (Auto) 2.0, Monocytes # (Auto) 0.9, Eosinophils # (Auto) 0.3, Basophils # (Auto) 0.0, Immature Granulocyte # (Auto) 0.0 Microbiology 08/22/22 Urine Culture - Final, Complete Enterococcus faecalis Enterococcus faecalis#2 Assessment/Plan Assessment/Plan Assessment/Plan GI bleed-likely upper GI Hypoxia-improving Atypical lung infection-improving Leukocytosis-currently within normal range TIM-resolved UTI PEG tube aspiration-non currently Vascular Dementia-non verbal Continue tube feeds Continue Protonix Follow hemoglobin and transfuse as needed- Currently stable 7.5 from 7.6 yesterday Continue to check for signs of blood loss Family does not want DNR at this time Clinical Quality Measures DVT/VTE Risk/Contraindication: Contraindications-Pharm: Other *list below* Other: gi bleed JESUS ALBERTO SMITH DO 08/27/22 1413: Subjective Subjective/Events-last exam Laying in bed. Tolerating tube feeds. No family at bedside. Having bowel function. Hgb stable. Objective Exam General Appearance: No Apparent Distress, Chronically ill, Thin HEENT: PERRL/EOMI, Normal ENT Inspection Neck: Non Tender, Supple Respiratory: Chest Non Tender, No Accessory Muscle Use, No Respiratory Distress Cardiovascular: Regular Rate, Rhythm, No JVD Gastrointestinal: non tender, soft, other (gastrostomy tube LUQ, no blood at this time) Extremity: Normal Inspection, Non Tender Neurologic/Psychiatric: Alert; No Oriented x3 Skin: Normal Color, Warm/Dry Lymphatic: No Adenopathy Assessment/Plan Assessment/Plan Assessment/Plan GI bleed-likely upper GI Hypoxia-improving Atypical lung infection-improving Leukocytosis-currently within normal range TIM-resolved UTI PEG tube aspiration-non currently Vascular Dementia-non verbal Continue tube feeds Continue Protonix Follow hemoglobin and transfuse as needed- Currently stable 7.5 from 7.6 yesterday Continue to check for signs of blood loss Will sign off, call if needed. Supervisory-Addendum Brief Verification & Attestation Participated in pt care: history, MDM, physical Personally performed: exam, history, MDM, supervision of care Care discussed with: Medical Student Procedures: n/a Results interpretation: Verified all documentation Verification and Attestation of Medical Student E/M Service A medical student performed and documented this service in my presence. I reviewed and verified all information documented by the medical student and made modifications to such information, when appropriate. I personally performed the physical exam and medical decision making. Jesus Alberto Smith, Aug 27, 2022,14:13 HANSA MCKEON Aug 27, 2022 06:53 JESUS ALBERTO SMITH DO Aug 27, 2022 14:13
[2022-08-27 07:03] LABS: ALBUMIN 2.3 GM/DL (3.2-4.5); BILIRUBIN,TOTAL 0.3 MG/DL (0.1-1.0); CALCIUM 8.8 MG/DL (8.5-10.1); CREATININE SERUM 0.79 MG/DL (0.60-1.30); POTASSIUM 3.1 MMOL/L (3.6-5.0); TOTAL PROTEIN 4.8 GM/DL (6.4-8.2)
[2022-08-27 07:27] VITALS: BP 140/60
[2022-08-27] MEDS: fluCOnazole (DIFLUCAN) 100 MG TAB PEG SCH (08:58)
[2022-08-27] MEDS: LACTOBACILLUS ACIDOPHILUS (PROBIOTIC) CAPSULE PEG SCH ×3 (08:58→17:11)
[2022-08-27] MEDS: KCL 20 MEQ TAB (K-DUR) PO SCH (08:59)
[2022-08-27] MEDS: PANTOPRAZOLE 40 MG (PROTONIX) VIAL IV SCH (08:59)
[2022-08-27] MEDS: DOCUSATE SODIUM 100 MG (COLACE) CAP PO SCH ×2 (08:59→19:56)
[2022-08-27] MEDS: SENNOSIDES 8.6 MG (SENOKOT) TAB PO SCH ×2 (08:59→19:56)
[2022-08-27] MEDS: amLODIPine 5 MG (NORVASC) TAB PO SCH (08:59)
[2022-08-27 11:25] VITALS: BP 137/74
--- NOTE | 2022-08-27 11:45 | Progress Note - Hospitalist ---
Subjective HPI/CC On Admission Date Seen by Provider: Aug 27, 2022 Time Seen by Provider: 11:43 Subjective/Events-last exam No significant behavioral problems does get agitated when stimulated nonverbal no meaningful following of commands reported. No care issues reported per nursing staff. Patient sleeping I did not arouse her she only gets agitated and at baseline is noncommunicative. Objective Exam Vital Signs Vital Signs Date Time Temp Pulse Resp B/P (MAP) Pulse Ox O2 Delivery O2 Flow Rate FiO2 08/27/22 11:25 36.7 88 16 137/74 (95) 97 Nasal Cannula 3.00 Capillary Refill : Less Than 3 Seconds General Appearance: No Apparent Distress, Chronically ill Respiratory: Chest Non Tender, Lungs Clear, Normal Breath Sounds, No Accessory Muscle Use, No Respiratory Distress Cardiovascular: Regular Rate, Rhythm, No Edema, No Gallop, No JVD, No Murmur, Normal Peripheral Pulses Gastrointestinal: Normal Bowel Sounds Results/Procedures Lab Laboratory Tests 08/27/22 06:31 Patient resulted labs reviewed. Assessment/Plan Assessment and Plan Assess & Plan/Chief Complaint 1. Likely aspiration pneumonitis with hypoxemia exacerbating underlying end- stage vascular dementia that had required PEG tube placement.Respiratory status has been stable transfer back to the care home in the morning. Prognosis extremely poor but family not agreeable to DNR status or consideration for hospice at this time. Continue current medical management. Critical Care Critically Ill Patient Clinical Quality Measures DVT/VTE Risk/Contraindication: Contraindications-Pharm: Other *list below* Other: gi bleCAMILLE Valadez MD Aug 27, 2022 11:45
[2022-08-27 16:09] VITALS: BP 178/80
[2022-08-27 19:13] VITALS: BP 157/68
[2022-08-27 23:39] VITALS: BP 127/63
[2022-08-28 03:28] VITALS: BP 135/63
[2022-08-28] MEDS: PIPERACILLIN SODIUM/TAZOBACTAM 4.5 GM in NS (IVPB) 100 ML IV SCH (03:33)
[2022-08-28] MEDS: ACETAMINOPHEN 325 MG TABLET PO PRN (04:37)
[2022-08-28 05:29] LABS: BASOPHILS % (AUTO) 0 % (0-10); EOSINOPHILS # (AUTO) 0.2 10^3/uL (0.0-0.3); EOSINOPHILS % (AUTO) 3 % (0-10); HEMATOCRIT 24 % (35-52); HEMOGLOBIN 7.4 g/dL (11.5-16.0); LYMPHOCYTES # (AUTO) 2.4 10^3/uL (1.0-4.0); LYMPHOCYTES % (AUTO) 25 % (12-44); MEAN CORPUSCULAR HEMOGLOBIN 29 pg (25-34); MEAN CORPUSCULAR HGB CONC 31 g/dL (32-36); MEAN CORPUSCULAR VOLUME 95 fL (80-99); MEAN PLATELET VOLUME 9.6 fL (9.0-12.2); MONOCYTES # (AUTO) 1.1 10^3/uL (0.0-1.0); MONOCYTES % (AUTO) 11 % (0-12); NEUTROPHILS # (AUTO) 5.7 10^3/uL (1.8-7.8); NEUTROPHILS % (AUTO) 60 % (42-75); PLATELET COUNT 213 10^3/uL (130-400); WHITE BLOOD COUNT 9.5 10^3/uL (4.3-11.0)
[2022-08-28 05:51] LABS: ALBUMIN 2.3 GM/DL (3.2-4.5); BILIRUBIN,TOTAL 0.3 MG/DL (0.1-1.0); CALCIUM 8.6 MG/DL (8.5-10.1); CREATININE SERUM 0.76 MG/DL (0.60-1.30); POTASSIUM 3.1 MMOL/L (3.6-5.0)
[2022-08-28] MEDS: D5 NS 1000 ML IV SOLUTION 1,000 ML IV SCH (06:32)
[2022-08-28 07:42] VITALS: BP 168/72
--- NOTE | 2022-08-28 09:08 | Speech Therapy Daily Note ---
Speech Daily Progress Note Subjective Date Seen by Provider: Aug 28, 2022 Time Seen by Provider: 08:30 The patient was lying in bed, eyes closed, upon entrance to her room by the clinician. The patient woke with moderate clinician verbal prompting. The patient moans and intermittently mumbles, however, most verbalizations are not intelligible. The patient was positioned upright in bed for safe swallowing. Objective Moisture was applied to the patient's lips, lingual surface, and oral cavity for increased comfort. The patient does attempt manipulation of the swab on this date by displaying mastication to draw additional liquid into the oral cavity. Following, the patient was provided one ice chip and one half teaspoon of water. The patient minimally manipulates the ice chip with phasic mastication. Improved timeliness of the pharyngeal swallow was achieved with the ice chip and the thin liquid half teaspoon bolus. The patient displays an immediate wet vocal quality and wheezing, increased respirations. A delayed, rigorous cough was displayed. The patient continues to return to sleep, turning her head away from the clinician. The clinician ensured the patient's respiratory status returned to baseline prior to close of the treatment session. The patient does appear to be displaying regression and increased fatigue, however, does remain participatory with the clinician. At this time, the patient is not deemed safe or appropriate for continued treatment. The patient does politely defer additional boluses offered by the clinician. The patient points to the chair and requests the clinician remain with her. The treatment session is ended, however, the clinician remains at bedside to provide additional comfort to the patient as requested. Continue plan of care. Recommendations: - The patient should remain N.P.O. with total nutrition, hydration, and medication via PEG. - Frequent and excellent oral care to reduce the transfer of oral bacteria to the lungs should aspiration of secretions occur. - Speech pathology to re-assess the oropharyngeal swallowing function, as appropriate. At this time, the speech pathologist suspects a poor prognosis for the oropharyngeal swallowing function. If the patient transfers to her facility on this date, the clinician recommends continued treatment and evaluation of the oropharyngeal swallowing function. If increased alertness, participation, and appropriateness are displayed, a modified barium swallow is recommended prior to a return to a P.O. diet consistency due to the patient's multiple risk factors and the patient's son's report of coughing with thin liquids throughout his time with her at the facility. Assessment Assessment Current Status: Regressing Treatment Plan Continue Plan of Care Speech Short Term Goals Short Term Goals Short Term Goals 1. The patient will tolerate trials of the least restrictive consistency without s/s of suspected aspiration. Time Frame-STG: Two Days. Speech Shelter Goals Utilization Manager Goals 1. The patient will demonstrate tolerance of the least restrictive diet consist ency without s/s of suspected aspiration. Time Frame: Six Weeks. Speech-Plan Treatment Plan Speech Therapy Treatment Plan: Continue Plan of Care Treatment Duration: Aug 25, 2022 Frequency: 2 times per week Estimated Hrs Per Day: .25 hour per day Rehab Potential: Poor Safety Risks/Education Teaching Recipient: Patient Teaching Methods: Discussion Response to Teaching: Unable to Comprehend Education Topics Provided: Results, Recommendations Time Speech Therapy Time In: 08:30 Speech Therapy Time Out: 08:45 DATE: Aug 28, 2022 Total Billed Time: 15 Billed Treatment Time [facility] Aug 28, 2022 09:08
[2022-08-28] MEDS ORDERED: POTASSIUM BICARB 20 MEQ (EFFER-K) TABLET PEG SCH (09:15)
[2022-08-28] MEDS ORDERED: FAMO-119 PEG (09:32)
[2022-08-28] MEDS ORDERED: POTA20TA28 PEG (09:32)
--- NOTE | 2022-08-28 09:32 | Discharge Summary ---
Diagnosis/Chief Complaint Date of Admission Aug 22, 2022 at 04:41 Date of Discharge Discharge Date: Aug 28, 2022 Discharge Diagnosis Assessment: Encephalopathy Dementia Hypoxia Pneumonia UTI facility acquired GI bleed Vascular dementia PEG tube Reason Hospital Visit CC: Pneumonia with UTI and hematemesis HPI: This is an 86 yr old female correction pt that Aissatou Prado and I have been taking care of. She was set to go home today when she presented to the ER with fever and altered mental status. She was found to have pneumonia with a white count of 20,000, UTI, and hematemesis. Dr. Smith will be consulted. Pt was placed on Zosyn for aspiration pneumonia and Vancomycin for presumed bacteremia facility acquired. Spoke with DPOA and we will talk more about DNR since she appears to be very debilitated. Discharge Summary Discharge Physical Examination Allergies: Coded Allergies: melatonin (Verified Allergy, Unknown, 03/12/22) quetiapine (Verified Adverse Reaction, Unknown, CONFUSION, 08/25/22) confusion Vitals & I&Os Vital Signs Date Time Temp Pulse Resp B/P (MAP) Pulse Ox O2 Delivery O2 Flow Rate FiO2 08/28/22 11:49 35.9 77 18 170/70 (103) 93 Nasal Cannula 3.00 General Appearance: Other (sleeping) Respiratory: Clear to Auscultation Cardiovascular: Regular Rate Hospital Course Was the Problem List Reviewed?: Yes Patient is an 86-year-old female with a history of vascular dementia, HTN, and Afib who presented to the ED on 08/21 for hematemesis and hypoxia. Patient was found to have aspiration pneumonia and a UTI for which she was placed on vancomycin and zosyn. Patient was started on feeds of 120mls of Jevity 1.5 4x a day through her PEG tube on 08/25 and has been tolerated well. Surgery was consulted for a possible GI bleed. The patient was started on potassium replacement on 08/24 after being found to be hypokalemic. The patient remains nonverbal which is her baseline. The patient is scheduled to be discharged back to [facility]. Labs (last 24 hrs) Laboratory Tests 08/22/22 02:54: Blood Gas Puncture Site LR, Blood Gas Patient Temperature 36.7, Arterial Blood pH 7.44H, Arterial Blood Partial Pressure CO2 44, Arterial Blood Partial Pressure O2 50L, Arterial Blood HCO3 30H, Arterial Blood Total CO2 31.0, Arterial Blood Oxygen Saturation 85L, Arterial Blood Base Excess 5.5H, Glen Test YES-POS, Blood Gas Ventilator Setting NO, Blood Gas Inspired Oxygen 6L 08/22/22 03:10: White Blood Count 20.9H, Red Blood Count 3.72L, Hemoglobin 10.9L, Hematocrit 34L , Mean Corpuscular Volume 90, Mean Corpuscular Hemoglobin 29, Mean Corpuscular Hemoglobin Concent 32, Red Cell Distribution Width 18.5H, Platelet Count 242, Mean Platelet Volume 9.9, Immature Granulocyte % (Auto) 1, Neutrophils (%) (Auto) 86H, Lymphocytes (%) (Auto) 8L, Monocytes (%) (Auto) 6, Eosinophils (%) (Auto) 0, Basophils (%) (Auto) 0, Neutrophils # (Auto) 18.0H, Lymphocytes # (Auto) 1.6, Monocytes # (Auto) 1.2H, Eosinophils # (Auto) 0.0, Basophils # (Auto) 0.0, Immature Granulocyte # (Auto) 0.1, Neutrophils % (Manual) 84, Lymphocytes % (Manual) 9, Monocytes % (Manual) 7, Blood Morphology Comment NORMAL, Prothrombin Time 12.7, INR Comment 0.9, Sodium Level 139, Potassium Level 4.2, Chloride Level 100, Carbon Dioxide Level 24, Anion Gap 15H, Blood Urea Nitrogen 62H, Creatinine 1.78H, Estimat Glomerular Filtration Rate 27, BUN/Creatinine Ratio 35, Glucose Level 118H, Calcium Level 14.2*H, Corrected Calcium 14.6H, Total Bilirubin 0.6, Aspartate Amino Transf (AST/SGOT) 41H, Alanine Aminotransferase (ALT/SGPT) 174H, Alkaline Phosphatase 329H, Total Protein 7.1, Albumin 3.5 08/22/22 04:09: D-Dimer 2.41H, Procalcitonin 0.94H, Influenza Type A (RT-PCR) Not Detected, Influenza Type B (RT-PCR) Not Detected, SARS-CoV-2 RNA (RT-PCR) Not Detected 08/22/22 04:33: Urine Color YELLOW, Urine Clarity TURBID, Urine pH 5.0, Urine Specific [place] >=1.030, Urine Protein TRACEH, Urine Glucose (UA) NEGATIVE, Urine Ketones NEGATIVE, Urine Nitrite NEGATIVE, Urine Bilirubin NEGATIVE, Urine Urobilinogen 0.2, Urine Leukocyte Esterase 2+H, Urine RBC (Auto) TRACE-IH, Urine RBC 10-25H, Urine WBC >100H, Urine Squamous Epithelial Cells 2-5, Urine Crystals PRESENTH, Urine Calcium Oxalate Crystals RAREH, Urine Bacteria FEWH, Urine Casts NONE, Urine Mucus SMALLH, Urine Other , Urine Culture Indicated YES 08/23/22 05:20: White Blood Count 11.5H, Red Blood Count 3.07L, Hemoglobin 8.9L, Hematocrit 29L, Mean Corpuscular Volume 95, Mean Corpuscular Hemoglobin 29, Mean Corpuscular Hemoglobin Concent 31L, Red Cell Distribution Width 18.3H, Platelet Count 188, Mean Platelet Volume 9.9, Immature Granulocyte % (Auto) 0, Neutrophils (%) (Auto) 74, Lymphocytes (%) (Auto) 16, Monocytes (%) (Auto) 8, Eosinophils (%) (Auto) 1, Basophils (%) (Auto) 0, Neutrophils # (Auto) 8.6H, Lymphocytes # (Auto) 1.8, Monocytes # (Auto) 0.9, Eosinophils # (Auto) 0.1, Basophils # (Auto) 0.0, Immature Granulocyte # (Auto) 0.0, Sodium Level 142, Potassium Level 3.7, Chloride Level 111H, Carbon Dioxide Level 20L, Anion Gap 11, Blood Urea Nitrogen 42H, Creatinine 1.12, Estimat Glomerular Filtration Rate 48, BUN/Creatinine Ratio 38, Glucose Level 83, Calcium Level 11.2H, Corrected Calcium 12.2H, Total Bilirubin 0.5, Aspartate Amino Transf (AST/SGOT) 27, Alanine Aminotransferase (ALT/SGPT) 96H, Alkaline Phosphatase 214H, Total Protein 5.8L, Albumin 2.8L, Vancomycin Level Trough 8.6L 08/23/22 20:09: Glucometer 65L 08/24/22 05:05: White Blood Count 10.7, Red Blood Count 2.77L, Hemoglobin 8.1L, Hematocrit 26L, Mean Corpuscular Volume 93, Mean Corpuscular Hemoglobin 29, Mean Corpuscular Hemoglobin Concent 31L, Red Cell Distribution Width 17.6H, Platelet Count 195, Mean Platelet Volume 9.8, Immature Granulocyte % (Auto) 0, Neutrophils (%) (Auto) 72, Lymphocytes (%) (Auto) 17, Monocytes (%) (Auto) 9, Eosinophils (%) (Auto) 2, Basophils (%) (Auto) 0, Neutrophils # (Auto) 7.7, Lymphocytes # (Auto) 1.9, Monocytes # (Auto) 0.9, Eosinophils # (Auto) 0.2, Basophils # (Auto) 0.0, Immature Granulocyte # (Auto) 0.0, Sodium Level 142, Potassium Level 3.0L, Chloride Level 109H, Carbon Dioxide Level 22, Anion Gap 11, Blood Urea Nitrogen 25H, Creatinine 0.84, Estimat Glomerular Filtration Rate 67, BUN/Creatinine Ratio 30, Glucose Level 113H, Calcium Level 9.9, Corrected Calcium 11.0H, Total Bilirubin 0.6, Aspartate Amino Transf (AST/SGOT) 19, Alanine Aminotransferase (ALT/SGPT) 65H, Alkaline Phosphatase 170H, Total Protein 5.3L, Albumin 2.6L, Vancomycin Level Trough 12.1 08/25/22 05:20: White Blood Count 9.4, Red Blood Count 2.63L, Hemoglobin 7.7L, Hematocrit 25L, Mean Corpuscular Volume 93, Mean Corpuscular Hemoglobin 29, Mean Corpuscular He moglobin Concent 31L, Red Cell Distribution Width 17.5H, Platelet Count 188, Mean Platelet Volume 10.3, Immature Granulocyte % (Auto) 0, Neutrophils (%) (Auto) 63, Lymphocytes (%) (Auto) 25, Monocytes (%) (Auto) 9, Eosinophils (%) (Auto) 3, Basophils (%) (Auto) 0, Neutrophils # (Auto) 5.9, Lymphocytes # (Auto) 2.3, Monocytes # (Auto) 0.9, Eosinophils # (Auto) 0.3, Basophils # (Auto) 0.0, Immature Granulocyte # (Auto) 0.0, Sodium Level 143, Potassium Level 3.2L, Chloride Level 114H, Carbon Dioxide Level 20L, Anion Gap 9, Blood Urea Nitrogen 15, Creatinine 0.78, Estimat Glomerular Filtration Rate 73, BUN/Creatinine Ratio 19, Glucose Level 116H, Calcium Level 9.4, Corrected Calcium 10.6H, Total Bilirubin 0.6, Aspartate Amino Transf (AST/SGOT) 16, Alanine Aminotransferase (ALT/SGPT) 52, Alkaline Phosphatase 171H, Total Protein 5.2L, Albumin 2.5L 08/26/22 05:00: White Blood Count 8.0, Red Blood Count 2.60L, Hemoglobin 7.6L, Hematocrit 24L, Mean Corpuscular Volume 94, Mean Corpuscular Hemoglobin 29, Mean Corpuscular Hemoglobin Concent 31L, Red Cell Distribution Width 17.1H, Platelet Count 224, Mean Platelet Volume 10.1, Immature Granulocyte % (Auto) 0, Neutrophils (%) (Auto) 69, Lymphocytes (%) (Auto) 18, Monocytes (%) (Auto) 9, Eosinophils (%) (Auto) 3, Basophils (%) (Auto) 0, Neutrophils # (Auto) 5.6, Lymphocytes # (Auto) 1.5, Monocytes # (Auto) 0.8, Eosinophils # (Auto) 0.2, Basophils # (Auto) 0.0, Immature Granulocyte # (Auto) 0.0, Percent Immature Platelet Fraction 2.0, Sodium Level 141, Potassium Level 2.9L, Chloride Level 111H, Carbon Dioxide Level 19L, Anion Gap 11, Blood Urea Nitrogen 12, Creatinine 0.74, Estimat Glomerular Filtration Rate 78, BUN/Creatinine Ratio 16, Glucose Level 172H, Calcium Level 8.6, Corrected Calcium 10.0, Total Bilirubin 0.4, Aspartate Amino Transf (AST/SGOT) 18, Alanine Aminotransferase (ALT/SGPT) 42, Alkaline Phosphatase 149H, Total Protein 4.8L, Albumin 2.3L 08/27/22 06:31: White Blood Count 8.6, Red Blood Count 2.56L, Hemoglobin 7.5L, Hematocrit 24L, Mean Corpuscular Volume 95, Mean Corpuscular Hemoglobin 29, Mean Corpuscular Hemoglobin Concent 31L, Red Cell Distribution Width 17.4H, Platelet Count 207, Mean Platelet Volume 9.5, Immature Granulocyte % (Auto) 0, Neutrophils (%) (Auto) 64, Lymphocytes (%) (Auto) 23, Monocytes (%) (Auto) 10, Eosinophils (%) (Auto) 3, Basophils (%) (Auto) 0, Neutrophils # (Auto) 5.5, Lymphocytes # (Auto) 2.0, Monocytes # (Auto) 0.9, Eosinophils # (Auto) 0.3, Basophils # (Auto) 0.0, Immature Granulocyte # (Auto) 0.0, Sodium Level 143, Potassium Level 3.1L, Chloride Level 114H, Carbon Dioxide Level 20L, Anion Gap 9, Blood Urea Nitrogen 16, Creatinine 0.79, Estimat Glomerular Filtration Rate 72, BUN/Creatinine Ratio 20, Glucose Level 163H, Calcium Level 8.8, Corrected Calcium 10.2H, Total Bilirubin 0.3, Aspartate Amino Transf (AST/SGOT) 13, Alanine Aminotransferase (ALT/SGPT) 31, Alkaline Phosphatase 129, Total Protein 4.8L, Albumin 2.3L 08/28/22 05:09: White Blood Count 9.5, Red Blood Count 2.55L, Hemoglobin 7.4L, Hematocrit 24L, Mean Corpuscular Volume 95, Mean Corpuscular Hemoglobin 29, Mean Corpuscular Hemoglobin Concent 31L, Red Cell Distribution Width 17.3H, Platelet Count 213, Mean Platelet Volume 9.6, Immature Granulocyte % (Auto) 0, Neutrophils (%) (Auto) 60, Lymphocytes (%) (Auto) 25, Monocytes (%) (Auto) 11, Eosinophils (%) (Auto) 3, Basophils (%) (Auto) 0, Neutrophils # (Auto) 5.7, Lymphocytes # (Auto) 2.4, Monocytes # (Auto) 1.1H, Eosinophils # (Auto) 0.2, Basophils # (Auto) 0.0, Immature Granulocyte # (Auto) 0.0, Sodium Level 145, Potassium Level 3.1L, Chloride Level 115H, Carbon Dioxide Level 21, Anion Gap 9, Blood Urea Nitrogen 13, Creatinine 0.76, Estimat Glomerular Filtration Rate 76, BUN/Creatinine Ratio 17, Glucose Level 114H, Calcium Level 8.6, Corrected Calcium 10.0, Total Bilirubin 0.3, Aspartate Amino Transf (AST/SGOT) 12, Alanine Aminotransferase (ALT/SGPT) 28, Alkaline Phosphatase 122, Total Protein 5.0L, Albumin 2.3L Microbiology 08/22/22 Urine Culture - Final, Complete Enterococcus faecalis Enterococcus faecalis#2 Pending Labs Microbiology Date/Time Source Procedure Growth Status 08/22/22 04:33 Urine Straight Cath, In/Out Urine Culture - Final Enterococcus faecalis Enterococcus faecalis#2 Complete Laboratory Tests 08/22/22 02:54: Blood Gas Puncture Site LR, Blood Gas Patient Temperature 36.7, Arterial Blood pH 7.44, Arterial Blood Partial Pressure CO2 44, Arterial Blood Partial Pressure O2 50, Arterial Blood HCO3 30, Arterial Blood Total CO2 31.0, Arterial Blood Oxygen Saturation 85, Arterial Blood Base Excess 5.5, Glen Test YES-POS, Blood Gas Ventilator Setting NO, Blood Gas Inspired Oxygen 6L 08/22/22 03:10: White Blood Count 20.9, Red Blood Count 3.72, Hemoglobin 10.9, Hematocrit 34, Mean Corpuscular Volume 90, Mean Corpuscular Hemoglobin 29, Mean Corpuscular Hemoglobin Concent 32, Red Cell Distribution Width 18.5, Platelet Count 242, Mean Platelet Volume 9.9, Immature Granulocyte % (Auto) 1, Neutrophils (%) (Auto) 86, Lymphocytes (%) (Auto) 8, Monocytes (%) (Auto) 6, Eosinophils (%) (Auto) 0, Basophils (%) (Auto) 0, Neutrophils # (Auto) 18.0, Lymphocytes # (Auto) 1.6, Monocytes # (Auto) 1.2, Eosinophils # (Auto) 0.0, Basophils # (Auto) 0.0, Immature Granulocyte # (Auto) 0.1, Neutrophils % (Manual) 84, Lymphocytes % (Manual) 9, Monocytes % (Manual) 7, Blood Morphology Comment NORMAL, Prothrombin Time 12.7, INR Comment 0.9, Sodium Level 139, Potassium Level 4.2, Chloride Level 100, Carbon Dioxide Level 24, Anion Gap 15, Blood Urea Nitrogen 62, Creatinine 1.78, Estimat Glomerular Filtration Rate 27, BUN/Creatinine Ratio 35, Glucose Level 118, Calcium Level 14.2, Corrected Calcium 14.6, Total Bilirubin 0.6, Aspartate Amino Transf (AST/SGOT) 41, Alanine Aminotransferase (ALT/SGPT) 174, Alkaline Phosphatase 329, Total Protein 7.1, Albumin 3.5 08/22/22 04:09: D-Dimer 2.41, Procalcitonin 0.94, Influenza Type A (RT-PCR) Not Detected, Influenza Type B (RT-PCR) Not Detected, SARS-CoV-2 RNA (RT-PCR) Not Detected 08/22/22 04:33: Urine Color YELLOW, Urine Clarity TURBID, Urine pH 5.0, Urine Specific [place] >=1.030, Urine Protein TRACE, Urine Glucose (UA) NEGATIVE, Urine Ketones NEGATIVE, Urine Nitrite NEGATIVE, Urine Bilirubin NEGATIVE, Urine Urobilinogen 0.2, Urine Leukocyte Esterase 2+, Urine RBC (Auto) TRACE-I, Urine RBC 10-25, Urine WBC >100, Urine Squamous Epithelial Cells 2-5, Urine Crystals PRESENT, Urine Calcium Oxalate Crystals RARE, Urine Bacteria FEW, Urine Casts NONE, Urine Mucus SMALL, Urine Other , Urine Culture Indicated YES 08/23/22 05:20: White Blood Count 11.5, Red Blood Count 3.07, Hemoglobin 8.9, Hematocrit 29, Mean Corpuscular Volume 95, Mean Corpuscular Hemoglobin 29, Mean Corpuscular Hemoglobin Concent 31, Red Cell Distribution Width 18.3, Platelet Count 188, Mean Platelet Volume 9.9, Immature Granulocyte % (Auto) 0, Neutrophils (%) (Auto) 74, Lymphocytes (%) (Auto) 16, Monocytes (%) (Auto) 8, Eosinophils (%) (Auto) 1, Basophils (%) (Auto) 0, Neutrophils # (Auto) 8.6, Lymphocytes # (Auto) 1.8, Monocytes # (Auto) 0.9, Eosinophils # (Auto) 0.1, Basophils # (Auto) 0.0, Immature Granulocyte # (Auto) 0.0, Sodium Level 142, Potassium Level 3.7, Chloride Level 111, Carbon Dioxide Level 20, Anion Gap 11, Blood Urea Nitrogen 42, Creatinine 1.12, Estimat Glomerular Filtration Rate 48, BUN/Creatinine Ratio 38, Glucose Level 83, Calcium Level 11.2, Corrected Calcium 12.2, Total Bilirubin 0.5, Aspartate Amino Transf (AST/SGOT) 27, Alanine Aminotransferase (ALT/SGPT) 96, Alkaline Phosphatase 214, Total Protein 5.8, Albumin 2.8, Vancomycin Level Trough 8.6 08/23/22 20:09: Glucometer 65 08/24/22 05:05: White Blood Count 10.7, Red Blood Count 2.77, Hemoglobin 8.1, Hematocrit 26, Mean Corpuscular Volume 93, Mean Corpuscular Hemoglobin 29, Mean Corpuscular He moglobin Concent 31, Red Cell Distribution Width 17.6, Platelet Count 195, Mean Platelet Volume 9.8, Immature Granulocyte % (Auto) 0, Neutrophils (%) (Auto) 72, Lymphocytes (%) (Auto) 17, Monocytes (%) (Auto) 9, Eosinophils (%) (Auto) 2, Basophils (%) (Auto) 0, Neutrophils # (Auto) 7.7, Lymphocytes # (Auto) 1.9, Monocytes # (Auto) 0.9, Eosinophils # (Auto) 0.2, Basophils # (Auto) 0.0, Immature Granulocyte # (Auto) 0.0, Sodium Level 142, Potassium Level 3.0, Chloride Level 109, Carbon Dioxide Level 22, Anion Gap 11, Blood Urea Nitrogen 25, Creatinine 0.84, Estimat Glomerular Filtration Rate 67, BUN/Creatinine Ratio 30, Glucose Level 113, Calcium Level 9.9, Corrected Calcium 11.0, Total Bilirubin 0.6, Aspartate Amino Transf (AST/SGOT) 19, Alanine Aminotransferase (ALT/SGPT) 65, Alkaline Phosphatase 170, Total Protein 5.3, Albumin 2.6, Vancomycin Level Trough 12.1 08/25/22 05:20: White Blood Count 9.4, Red Blood Count 2.63, Hemoglobin 7.7, Hematocrit 25, Mean Corpuscular Volume 93, Mean Corpuscular Hemoglobin 29, Mean Corpuscular Hemoglobin Concent 31, Red Cell Distribution Width 17.5, Platelet Count 188, Mean Platelet Volume 10.3, Immature Granulocyte % (Auto) 0, Neutrophils (%) (Auto) 63, Lymphocytes (%) (Auto) 25, Monocytes (%) (Auto) 9, Eosinophils (%) (Auto) 3, Basophils (%) (Auto) 0, Neutrophils # (Auto) 5.9, Lymphocytes # (Auto) 2.3, Monocytes # (Auto) 0.9, Eosinophils # (Auto) 0.3, Basophils # (Auto) 0.0, Immature Granulocyte # (Auto) 0.0, Sodium Level 143, Potassium Level 3.2, Chloride Level 114, Carbon Dioxide Level 20, Anion Gap 9, Blood Urea Nitrogen 15, Creatinine 0.78, Estimat Glomerular Filtration Rate 73, BUN/Creatinine Ratio 19, Glucose Level 116, Calcium Level 9.4, Corrected Calcium 10.6, Total Bilirubin 0.6, Aspartate Amino Transf (AST/SGOT) 16, Alanine Aminotransferase (ALT/SGPT) 52, Alkaline Phosphatase 171, Total Protein 5.2, Albumin 2.5 08/26/22 05:00: White Blood Count 8.0, Red Blood Count 2.60, Hemoglobin 7.6, Hematocrit 24, Mean Corpuscular Volume 94, Mean Corpuscular Hemoglobin 29, Mean Corpuscular Hemoglobin Concent 31, Red Cell Distribution Width 17.1, Platelet Count 224, Mean Platelet Volume 10.1, Immature Granulocyte % (Auto) 0, Neutrophils (%) (Auto) 69, Lymphocytes (%) (Auto) 18, Monocytes (%) (Auto) 9, Eosinophils (%) (Auto) 3, Basophils (%) (Auto) 0, Neutrophils # (Auto) 5.6, Lymphocytes # (Auto) 1.5, Monocytes # (Auto) 0.8, Eosinophils # (Auto) 0.2, Basophils # (Auto) 0.0, Immature Granulocyte # (Auto) 0.0, Percent Immature Platelet Fraction 2.0, Sodium Level 141, Potassium Level 2.9, Chloride Level 111, Carbon Dioxide Level 19, Anion Gap 11, Blood Urea Nitrogen 12, Creatinine 0.74, Estimat Glomerular Filtration Rate 78, BUN/Creatinine Ratio 16, Glucose Level 172, Calcium Level 8.6, Corrected Calcium 10.0, Total Bilirubin 0.4, Aspartate Amino Transf (AST/SGOT) 18, Alanine Aminotransferase (ALT/SGPT) 42, Alkaline Phosphatase 149, Total Protein 4.8, Albumin 2.3 08/27/22 06:31: White Blood Count 8.6, Red Blood Count 2.56, Hemoglobin 7.5, Hematocrit 24, Mean Corpuscular Volume 95, Mean Corpuscular Hemoglobin 29, Mean Corpuscular Hemoglobin Concent 31, Red Cell Distribution Width 17.4, Platelet Count 207, Mean Platelet Volume 9.5, Immature Granulocyte % (Auto) 0, Neutrophils (%) (Auto) 64, Lymphocytes (%) (Auto) 23, Monocytes (%) (Auto) 10, Eosinophils (%) (Auto) 3, Basophils (%) (Auto) 0, Neutrophils # (Auto) 5.5, Lymphocytes # (Auto) 2.0, Monocytes # (Auto) 0.9, Eosinophils # (Auto) 0.3, Basophils # (Auto) 0.0, Immature Granulocyte # (Auto) 0.0, Sodium Level 143, Potassium Level 3.1, Chloride Level 114, Carbon Dioxide Level 20, Anion Gap 9, Blood Urea Nitrogen 16, Creatinine 0.79, Estimat Glomerular Filtration Rate 72, BUN/Creatinine Ratio 20, Glucose Level 163, Calcium Level 8.8, Corrected Calcium 10.2, Total Bilirubin 0.3, Aspartate Amino Transf (AST/SGOT) 13, Alanine Aminotransferase (ALT/SGPT) 31, Alkaline Phosphatase 129, Total Protein 4.8, Albumin 2.3 08/28/22 05:09: White Blood Count 9.5, Red Blood Count 2.55, Hemoglobin 7.4, Hematocrit 24, Mean Corpuscular Volume 95, Mean Corpuscular Hemoglobin 29, Mean Corpuscular Hemoglobin Concent 31, Red Cell Distribution Width 17.3, Platelet Count 213, Mean Platelet Volume 9.6, Immature Granulocyte % (Auto) 0, Neutrophils (%) (Auto) 60, Lymphocytes (%) (Auto) 25, Monocytes (%) (Auto) 11, Eosinophils (%) (Auto) 3, Basophils (%) (Auto) 0, Neutrophils # (Auto) 5.7, Lymphocytes # (Auto) 2.4, Monocytes # (Auto) 1.1, Eosinophils # (Auto) 0.2, Basophils # (Auto) 0.0, Immature Granulocyte # (Auto) 0.0, Sodium Level 145, Potassium Level 3.1, Chloride Level 115, Carbon Dioxide Level 21, Anion Gap 9, Blood Urea Nitrogen 13, Creatinine 0.76, Estimat Glomerular Filtration Rate 76, BUN/Creatinine Ratio 17, Glucose Level 114, Calcium Level 8.6, Corrected Calcium 10.0, Total Bilirubin 0.3, Aspartate Amino Transf (AST/SGOT) 12, Alanine Aminotransferase (ALT/SGPT) 28, Alkaline Phosphatase 122, Total Protein 5.0, Albumin 2.3 Discharge Home Medications: Active Scripts Active Pepcid (Famotidine) 20 Mg Tablet 20 Mg PEG BID Effer-K 20 Meq Tablet Eff (Potassium Bicarbonate/Cit AC) 20 Meq Tablet.eff 20 Meq PEG DAILY@0700 Reported Ocusoft Lid Scrub (Eyelid Cleanser Combination #5) 1 Each Med..pad 1 Each TP DAILY Vitamin C (Ascorbic Acid) 1,000 Mg Tablet 1,000 Mg PO DAILY Allopurinol 100 Mg Tablet 100 Mg PO DAILY Diclofenac Sodium 1 % Gel..gram. 2 Gm TOP QID PRN APPLY TO AFFECTED AREA Lactulose 10 Gram/15 Ml Solution 10 Gm PO BID Doxazosin Mesylate 1 Mg Tablet 1 Mg PO DAILY Refresh Tears (Carboxymethylcellulose Sodium) 0.5 % Drops 1 Drop OU QID Quetiapine Fumarate 25 Mg Tablet 12.5 Mg PO HS TAKES OF A 25MG TAB Aspirin 81 Mg Tab.chew 81 Mg PO HS Amlodipine Besylate 5 Mg Tablet 5 Mg PO DAILY HOLD FOR SBP <100 OR PULSE LESS THAN 60 Acetaminophen 325 Mg/10.15 Ml Soln 20.3 Ml PO Q6H PRN Acetaminophen 500 Mg Tablet 1,000 Mg PO TID Vitamin D3 (Cholecalciferol (Vitamin D3)) 125 Mcg (5000 Unit) Capsule 125 Mcg PO DAILY Multivitamin 1 Each Tablet 1 Each PO DAILY Polytrim Eye Drops (Polymyxin B Sulf/Trimethoprim) 10,000 Unit-1 Mg/Ml Drops 1 Drop OU TID Senna Plus Tablet (Sennosides/Docusate Sodium) 8.6 Mg-50 Mg Tablet 1 Each PO Q12H Miralax (Polyethylene Glycol 3350) 17 Gram Powd.pack 17 Gm PO HS Alendronate Sodium 70 Mg Tablet 70 Mg PO FRI Instructions to patient/family Please see electronic discharge instructions given to patient. Clinical Quality Measures DVT/VTE Risk/Contraindication: Contraindications-Pharm: Other *list below* Other: gi bleed SATINDER MARRUFO DO Aug 28, 2022 09:32
--- NOTE | 2022-08-28 10:10 | Progress Note ---
ERNESTO DEVLIN 08/28/22 1010: Progress Note Patient is an 86-year-old female with a history of vascular dementia, HTN, and Afib who presented to the ED on 08/21 for hematemesis and hypoxia. Patient was found to have aspiration pneumonia and a UTI for which she was placed on vancomycin and zosyn. Patient was started on feeds of 120mls of Jevity 1.5 4x a day through her PEG tube on 08/25 and has been tolerated well. Surgery was consulted for a possible GI bleed. The patient was started on potassium replacement on 08/24 after being found to be hypokalemic. The patient remains nonverbal which is her baseline. The patient is scheduled to be discharged back to [facility]. FARIHA PARNELL DO 08/28/222025: Supervisory-Addendum Brief Verification & Attestation Participated in pt care: history, MDM, physical Personally performed: exam, history, MDM, supervision of care Care discussed with: Medical Student Procedures: n/a Results interpretation: Verified all documentation Verification and Attestation of Medical Student E/M Service A medical student performed and documented this service in my presence. I reviewed and verified all information documented by the medical student and made modifications to such information, when appropriate. I personally performed the physical exam and medical decision making. Fariha Parnell, Aug 28, 2022,20:24 ERNESTO DEVLIN Aug 28, 2022 10:10 FARIHA PARNELL DO Aug 28, 2022 20:26
--- NOTE | 2022-08-28 10:19 | Discharge Inst-Skilled Nursing ---
Discharge Inst-Skilled NF Reconcile Patient Problems Problems Reviewed?: Yes Patient Instructions Patient Problems: debility Consult/Follow Up/Orders Follow Up Appt.: [place] rounds dr parnell and rosa wolf Skilled NF Admit to: [facility] Certification ([facility]) I certify that [facility] services are required to be given on an inpatient basis because of the above named patient's need for long term care on a continuing basis for the conditions(s) for which he/she was receiving inpatient hospital services prior to his/her transfer to the [facility]. Assisted Facility Order: Nursing Services, Registered Nurse Teacher-Evaluate & Treat, Physical Therapy-Evaluate & Treat, Speech Language-Evaluate & Treat Oxygen Delivery Method: Nasal Cannula Discharge Diet: Tube Feeding Daily Activity as Tolerated: Yes Resuscitation Status: Full Code New & Resume Previous Orders New Medications: Famotidine (Pepcid) 20 Mg Tablet 20 MG PEG BID, #60 TAB Potassium Bicarbonate/Cit AC (Effer-K 20 Meq Tablet Eff) 20 Meq Tablet.eff 20 MEQ PEG DAILY@0700, #30 TAB Continued Medications: Acetaminophen (Acetaminophen) 500 Mg Tablet 1000 MG PO TID, TAB Acetaminophen (Acetaminophen) 325 Mg/10.15 Ml Soln 20.3 ML PO Q6H PRN for PAIN-MILD (1-4), EA Alendronate Sodium (Alendronate Sodium) 70 Mg Tablet 70 MG PO FRI, TAB Allopurinol (Allopurinol) 100 Mg Tablet 100 MG PO DAILY, TAB Amlodipine Besylate (Amlodipine Besylate) 5 Mg Tablet 5 MG PO DAILY, TAB HOLD FOR SBP <100 OR PULSE LESS THAN 60 Ascorbic Acid (Vitamin C) 1,000 Mg Tablet 1000 MG PO DAILY, TAB Aspirin (Aspirin) 81 Mg Tab.chew 81 MG PO HS, TAB Carboxymethylcellulose Sodium (Refresh Tears) 0.5 % Drops 1 DROP OU QID, DROPS Cholecalciferol (Vitamin D3) (Vitamin D3) 125 Mcg (5000 Unit) Capsule 125 MCG PO DAILY, CAP Diclofenac Sodium (Diclofenac Sodium) 1 % Gel..gram. 2 GM TOP QID PRN for PAIN-BREAKTHROUGH, EA APPLY TO AFFECTED AREA Doxazosin Mesylate (Doxazosin Mesylate) 1 Mg Tablet 1 MG PO DAILY, TAB Eyelid Cleanser Combination #5 (Ocusoft Lid Scrub) 1 Each Med..pad 1 EACH TP DAILY, EA Lactulose (Lactulose) 10 Gram/15 Ml Solution 10 GM PO BID, EA Multivitamin (Multivitamin) 1 Each Tablet 1 EACH PO DAILY, TAB Polyethylene Glycol 3350 (Miralax) 17 Gram Powd.pack 17 GM PO HS, EACH Polymyxin B Sulf/Trimethoprim (Polytrim Eye Drops) 10,000 Unit-1 Mg/Ml Drops 1 DROP OU TID, DROPS Quetiapine Fumarate (Quetiapine Fumarate) 25 Mg Tablet 12.5 MG PO HS, TAB TAKES OF A 25MG TAB Sennosides/Docusate Sodium (Senna Plus Tablet) 8.6 Mg-50 Mg Tablet 1 EACH PO Q12H, TAB Discontinued Medications: Sulfamethoxazole/Trimethoprim (Bactrim Ds Tablet) 1 Each Tablet 1 EACH PO BID, TAB START DATE 08-19-2022- STOP DATE 08-29-2022 Fariha Parnell Aug 28, 2022 10:17 FARIHA PARNELL DO Aug 28, 2022 10:18
[2022-08-28] MEDS: PANTOPRAZOLE 40 MG (PROTONIX) VIAL IV SCH (10:35)
[2022-08-28] MEDS: KCL 20 MEQ TAB (K-DUR) PO SCH (10:35)
[2022-08-28] MEDS: fluCOnazole (DIFLUCAN) 100 MG TAB PEG SCH (10:35)
[2022-08-28] MEDS: amLODIPine 5 MG (NORVASC) TAB PO SCH (10:35)
[2022-08-28] MEDS: LACTOBACILLUS ACIDOPHILUS (PROBIOTIC) CAPSULE PEG SCH (10:35)
[2022-08-28] MEDS: DOCUSATE SODIUM 100 MG (COLACE) CAP PO SCH (10:35)
[2022-08-28] MEDS: SENNOSIDES 8.6 MG (SENOKOT) TAB PO SCH (10:36)
[2022-08-28 11:46] VITALS: BP 168/72
[2022-08-28 11:49] VITALS: BP 170/70
== END 2022-08-28 11:45 | DRG 177 ==
LOC: EDUNIT# 02:37 → ER 02:38 → 4TH 04:41
PROVIDERS: ADMIT Internal Medicine; ATTEND Internal Medicine
DX: J69.0 Pneumonitis due to inhalation of food and vomit (principal); J96.01 Acute respiratory failure with hypoxia; N17.9 Acute kidney failure, unspecified; N39.0 Urinary tract infection, site not specified; K92.2 Gastrointestinal hemorrhage, unspecified; G93.40 Encephalopathy, unspecified; Z79.82 Long term (current) use of aspirin; Z79.899 Other long term (current) drug therapy; E78.5 Hyperlipidemia, unspecified; E03.9 Hypothyroidism, unspecified; I10 Essential (primary) hypertension; I25.10 Atherosclerotic heart disease of native coronary artery without angina pectoris; I48.91 Unspecified atrial fibrillation; M10.9 Gout, unspecified; Z20.822 Contact with and (suspected) exposure to COVID-19; F32.A Depression, unspecified; D72.829 Elevated white blood cell count, unspecified; F01.50 Vascular dementia, unspecified severity, without behavioral disturbance, psychotic disturbance, mood disturbance, and anxiety; E87.6 Hypokalemia
CPT/HCPCS: 36415; 51702; 71045; 74176; 80053; 80202; 81000; 82805; 82947; 84145; 85007; 85025; 85027; 85379; 85610; 86900; 86901; 87077; 87088; 87186; 87636; 94760; 96374

== ENCOUNTER → 2022-08-31 | Outpatient (CLI) | payer MEDICARE, OTHER, MEDICAID ==
[~2022-08-31] MED LIST changes: +ACET-93 PO; +ALLO100T PO; +ASCO100024 PO; +DICL100G13 TOP; +EYEL1MED TP; +FAMO-119 PEG; +LACT10SO3 PO; +POTA20TA28 PEG; +SULF1TAB38 PO
--- NOTE | 2022-08-31 17:37 | Diagnostic Imaging Report ---
INDICATION: Left shoulder fracture follow-up. EXAMINATION: 4 views of the left shoulder were obtained. COMPARISON: 05/11/2022. 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 The glenohumeral joint and AC joint appear in good alignment. 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 Dictated by: Dictated on workstation # [id number]
== END ==
LOC: ORTHO 14:45
PROVIDERS: ATTEND Orthopaedic Surgery
DX: Z47.89 Encounter for other orthopedic aftercare (principal); S42.292D Other displaced fracture of upper end of left humerus, subsequent encounter for fracture with routine healing; X58.XXXD Exposure to other specified factors, subsequent encounter
CPT/HCPCS: 73030; G0463; 99213

== ENCOUNTER → 2022-09-08 | Outpatient (CLI) | payer MEDICARE, MEDICAID ==
--- NOTE | 2022-09-08 14:20 | Diagnostic Imaging Report ---
Indication: Dysphagia. The procedure was performed in conjunction with speech pathology. Video fluoroscopy was performed during the swallowing of barium in multiple consistencies. A total of 2.0 minutes of fluoroscopic time was utilized. The patient ingested thin barium as well as applesauce and banana consistencies. There was some flash penetration and silent aspiration during the swallowing of thin barium. All other consistencies consistencies were unremarkable. Overall study is somewhat compromised due to marked patient kyphotic curvature. IMPRESSION: Penetration and silent aspiration during the swallowing of thin barium. No other significant abnormality was detected. Dictated by: Dictated on workstation # [id number]
== END ==
LOC: RAD 10:04
PROVIDERS: ATTEND Nurse Practitioner Gerontology
DX: R13.19 Other dysphagia (principal)
CPT/HCPCS: 74230

== ENCOUNTER 2022-09-24 10:11 | Emergency (ER) | payer MEDICARE, MEDICAID ==
[~2022-09-24] VITALS: Ht 165 cm; Wt 45.0 kg
[2022-09-24 10:18] VITALS: BP 135/71
[2022-09-24] MEDS ORDERED: amLODIPine 5 MG (NORVASC) TAB GT ONE (10:45)
[2022-09-24] MEDS ORDERED: amLODIPine 5 MG (NORVASC) TAB ONE (10:46)
--- NOTE | 2022-09-24 10:48 | ED GI ---
General Chief Complaint: Catheter/Drain/Tube Problems Stated Complaint: FEEDING TUBE CHANGE Nursing Triage Note: PT TO ED PER W/C W/ C/O "BLOCKED" FEEDING TUBE. STAFF W/ PT REPORT PT HAD 0400 FEEDING, 0830 MEDS BUT SINCE TUBE HAS NOT WORKED. STAFF ALSO REPORTS THEY ATTEMPTED TO PUSH "COKE" THROUGH IT W/O SUCCESS. NO DISTRESS OR DISCOMFORT NOTED AT THIS TIME. Source of Information: Caregiver Exam Limitations: No Limitations History of Present Illness Date Seen by Provider: Sep 24, 2022 Time Seen by Provider: 10:30 Initial Comments 86-year-old female G-tube dependent feedings presents for malfunction of the G- tube. He was placed in February and has been functioning well since that time, ch anged multiple times by surgery about once a month. Was able to be used for 4a.m. medication administration but would not function to give her 10:00 feeding. She is in her usual state of health according to her caregivers. Patient is nonverbal and history is obtained from 2 caregivers at bedside Allergies and Home Medications Allergies Coded Allergies: melatonin (Verified Allergy, Unknown, 03/12/22) quetiapine (Verified Adverse Reaction, Unknown, CONFUSION, 08/25/22) confusion Patient Home Medication List Home Medication List Reviewed: Yes Acetaminophen (Acetaminophen) 500 Mg Tablet, 1,000 MG PO TID, (Reported) Entered as Reported by: JANAK RAHMAN on 08/22/22 09 Acetaminophen (Acetaminophen) 325 Mg/10.15 Ml Soln, 20.3 ML PO Q6H PRN for PAIN- MILD (1-4), (Reported) Entered as Reported by: JANAK RAHMAN on 08/22/22 09 Alendronate Sodium (Alendronate Sodium) 70 Mg Tablet, 70 MG PO FRI, (Reported) Entered as Reported by: JANAK RAHMAN on 03/14/22 0851 Allopurinol (Allopurinol) 100 Mg Tablet, 100 MG PO DAILY, (Reported) Entered as Reported by: JANAK RAHMAN on 08/22/22 09 Amlodipine Besylate (Amlodipine Besylate) 5 Mg Tablet, 5 MG PO DAILY, (Reported) Entered as Reported by: JANAK RAHMAN on 08/22/22 0939 Ascorbic Acid (Vitamin C) 1,000 Mg Tablet, 1,000 MG PO DAILY, (Reported) Entered as Reported by: JANAK RAHMAN on 08/22/22938 Aspirin (Aspirin) 81 Mg Tab.chew, 81 MG PO HS, (Reported) Entered as Reported by: JANAK RAHMAN on 08/22/22938 Carboxymethylcellulose Sodium (Refresh Tears) 0.5 % Drops, 1 DROP OU QID, (Reported) Entered as Reported by: JANAK RAHMAN on 08/22/22938 Cholecalciferol (Vitamin D3) (Vitamin D3) 125 Mcg (5000 Unit) Capsule, 125 MCG PO DAILY, (Reported) Entered as Reported by: JANAK RAHMAN on 03/14/22850 Diclofenac Sodium (Diclofenac Sodium) 1 % Gel..gram., 2 GM TOP QID PRN for PAIN- BREAKTHROUGH, (Reported) Entered as Reported by: JANAK RAHMAN on 08/22/22938 Doxazosin Mesylate (Doxazosin Mesylate) 1 Mg Tablet, 1 MG PO DAILY, (Reported) Entered as Reported by: JANAK RAHMAN on 08/22/22938 Eyelid Cleanser Combination #5 (Ocusoft Lid Scrub) 1 Each Med..pad, 1 EACH TP DAILY, (Reported) Entered as Reported by: JANAK RAHMAN on 08/22/22938 Famotidine (Pepcid) 20 Mg Tablet, 20 MG PEG BID Prescribed by: SATINDER MARRUFO on 08/28/22931 Lactulose (Lactulose) 10 Gram/15 Ml Solution, 10 GM PO BID, (Reported) Entered as Reported by: JANAK RAHMAN on 08/22/22938 Multivitamin (Multivitamin) 1 Each Tablet, 1 EACH PO DAILY, (Reported) Entered as Reported by: JANAK RAHMAN on 03/14/22850 Polyethylene Glycol 3350 (Miralax) 17 Gram Powd.pack, 17 GM PO HS, (Reported) Entered as Reported by: JANAK RAHMAN on 03/14/22850 Polymyxin B Sulf/Trimethoprim (Polytrim Eye Drops) 10,000 Unit-1 Mg/Ml Drops, 1 DROP OU TID, (Reported) Entered as Reported by: JANAK RAHMAN on 03/14/22850 Potassium Bicarbonate/Cit AC (Effer-K 20 Meq Tablet Eff) 20 Meq Tablet.eff, 20 MEQ PEG DAILY@0700 Prescribed by: SATINDER MARRUFO on 08/28/22 0932 Quetiapine Fumarate (Quetiapine Fumarate) 25 Mg Tablet, 12.5 MG PO HS, (Reported) Entered as Reported by: JANAK RAHMAN on 08/22/22 0939 Sennosides/Docusate Sodium (Senna Plus Tablet) 8.6 Mg-50 Mg Tablet, 1 EACH PO Q12H, (Reported) Entered as Reported by: JANAK RAHMAN on 03/14/22 0851 Review of Systems Review of Systems Constitutional: no symptoms reported EENTM: No Symptoms Reported Respiratory: No Symptoms Reported Cardiovascular: No Symptoms Reported Gastrointestinal: Other (G-tube not functioning properly) Genitourinary: No Symptoms Reported Musculoskeletal: no symptoms reported Skin: no symptoms reported Psychiatric/Neurological: No Symptoms Reported Endocrine: No Symptoms Reported Hematologic/Lymphatic: No Symptoms Reported Past Xvvusna-Rpzfje-Myrbje Hx Patient Social History Tobacco Use?: No Use of E-Cig and/or Vaping dev: No Substance use?: No Alcohol Use?: No Pt feels they are or have been: No Immunizations Up To Date Tetanus Booster (TDap): Unknown PED Vaccines UTD: No First/Initial COVID19 Vaccinat: YES Second COVID19 Vaccination Theo: YES Third COVID19 Vaccination Date: YES Seasonal Allergies Seasonal Allergies: No Past Medical History Surgery/Hospitalization HX: DEMENTIA, A-FIB,CAD, HTN, HYPOTHYROIDISM, HYPERLIPIDEMIA G TUBE Surgeries: Yes Abdominal Respiratory: No Currently Using CPAP: No Currently Using BIPAP: No Cardiac: Yes (SEES DR. MOTTA UNSURE WHY) Atrial Fibrillation, Hypertension Neurological: Yes Dementia Reproductive Disorders: No Female Reproductive Disorders: Denies Sexually Transmitted Disease: No HIV/AIDS: No Genitourinary: Yes UTI-Chronic Gastrointestinal: No Gastroesophageal Reflux Musculoskeletal: Yes Fractures, Gout Endocrine: Yes Hypothyroidsim HEENT: Yes Cataract Loss of Vision: Denies Hearing Impairment: Hard of Hearing Cancer: No Psychosocial: No Depression Integumentary: No Recent Skin Changes Blood Disorders: No Adverse Reaction/Blood Tranf: No Family Medical History Reviewed Nursing Family Hx Dementia G8 SISTER Diabetes mellitus 19 FATHER No Pertinent Family Hx Physical Exam Vital Signs Vital Signs - First Documented 09/24/22 10:18 Temp 35.7 Pulse 72 Resp 18 B/P (MAP) 135/71 (92) Pulse Ox 97 O2 Delivery Room Air Capillary Refill : Less Than 3 Seconds Height/Weight/BMI Height: 5'4.00" Weight: 117lbs. 8.0oz. 53.693103ap; 16.00 BMI Method:Stated General Appearance: WD/WN, no apparent distress HEENT: normal ENT inspection, pharynx normal Neck: non-tender, normal inspection Respiratory: chest non-tender, normal breath sounds, no respiratory distress Cardiovascular: regular rate, rhythm, no murmur Gastrointestinal: normal bowel sounds, non tender, soft, other (G-tube left mid abdomen) Extremities: normal inspection, normal capillary refill Skin: normal color, warm/dry Procedures/Interventions Suture Size: 5-0 Progress/Results/Core Measures Results/Orders My Orders Orders - ALON RILEY DO Amlodipine Tablet (Norvasc Tablet) (09/24/22 10:45) Vital Signs/I&O 09/24/22 10:18 Temp 35.7 Pulse 72 Resp 18 B/P (MAP) 135/71 (92) Pulse Ox 97 O2 Delivery Room Air Blood Pressure Mean: 92 Departure Communication (Admissions) I believe that the G-tube is suctioning to the side of the stomach creating a vacuum in the tube as when I tried to draw back it would collapse the tubing. I flushed 5 cc of normal saline and was ultimately able to aspirate this and stomach acid as well. Patient has no abdominal pain. This may have been clogged however may just be suctioning up against the stomach intermittently. I gave the caregivers at bedside some tips on flushing and use. Notably the balloon for the G-tube only had 5 cc of fluid, I added 3 more cc with the manufacture recommendation to 7 to 10 cc in hopes of helping with the problem. We were able to use her to administer amlodipine dose. Advised to give her feeding when they returned to the nursing facility. They state understanding. They are comfortable and agreeable to the current plan of care. They will follow-up with her general surgeon for the regularly scheduled changes. Impression Primary Impression: Malfunction of gastrostomy tube Disposition: HOME, SELF-CARE Condition: Stable Departure-Patient Inst. Referrals: DEEPA BRYAN DO (PCP/Family) Primary Care Physician Patient Instructions: How to Care for Your Gastrostomy Tube ALON RILEY DO Sep 24, 2022 10:48
== END 2022-09-24 10:55 | disposition home or self-care (01) ==
LOC: EDUNIT# 10:11 → ER 10:14
DX: K94.23 Gastrostomy malfunction (principal)
CPT/HCPCS: 99281

== ENCOUNTER → 2022-10-31 | Outpatient (CLI) | payer MEDICARE, MEDICAID ==
--- NOTE | 2022-10-31 16:37 | Diagnostic Imaging Report ---
INDICATION: Left shoulder fracture follow-up. AP and transscapular views left shoulder are obtained and compared to . There is a chronic nonunited fracture of the proximal humerus with unchanged displacement. There is some ill-defined callus formation. The humeral joint appears in good alignment. AC joint appears in good alignment. IMPRESSION: Chronic nonunited fracture of proximal humerus with unchanged displacement. Dictated by: Dictated on workstation # [id number]
== END ==
LOC: ORTHO 13:16
PROVIDERS: ATTEND Orthopaedic Surgery
DX: Z47.89 Encounter for other orthopedic aftercare (principal); S42.202D Unspecified fracture of upper end of left humerus, subsequent encounter for fracture with routine healing; X58.XXXD Exposure to other specified factors, subsequent encounter
CPT/HCPCS: 73030; G0463; 99213

== ENCOUNTER → 2022-11-03 | Outpatient (CLI) | payer MEDICARE, MEDICAID ==
--- NOTE | 2022-11-03 12:30 | Diagnostic Imaging Report ---
INDICATION: Dysphasia. Procedure was performed in conjunction with speech pathology. Video fluoroscopy was performed during swallowing of barium at multiple consistencies. 125 seconds of fluoroscopic time was utilized. Patient ingested thin barium as well as nectar, honey, applesauce and banana consistency. There was penetration and aspiration observed during swallowing of thin barium. There was also an episode of deep laryngeal penetration during swallowing of nectar consistency. Applesauce and banana consistency was unremarkable. There is significant vallecular residue noted with all consistencies. There is a significant delay in the oral phase with moderate amount of spill. IMPRESSION: Abnormal modified barium swallow demonstrating aspiration during the swallowing of thin barium as well as deep laryngeal penetration with nectar consistency. There is significant vallecular residue noted with all consistencies. Dictated by: Dictated on workstation # [id number]
== END ==
LOC: RAD 09:45
PROVIDERS: ATTEND Pediatrics
DX: Z91.89 Other specified personal risk factors, not elsewhere classified (principal); R13.12 Dysphagia, oropharyngeal phase
CPT/HCPCS: 74230

== ENCOUNTER → 2022-12-18 | Outpatient (CLI) | payer MEDICARE, MEDICAID ==
--- NOTE | 2022-12-18 11:50 | Diagnostic Imaging Report ---
INDICATION: Dysphagia. Procedure was performed in conjunction with speech pathology. Video fluoroscopy was performed during swallowing of barium in multiple consistencies. A total of 145 seconds of fluoroscopic time was utilized. Patient ingested thin barium as well as nectar, applesauce and banana consistency. There is early spillover with all consistencies. There was penetration with aspiration during swallowing of thin barium. No penetration or aspiration was observed with any other consistency. There is significant vallecular residue with the banana consistency however this did clear with multiple swallows. IMPRESSION: Modified barium swallow, as described with aspiration during swallowing of thin barium. There is also significant vallecular residue with mechanical soft consistency which did clear with repeat swallows. Dictated by: Dictated on workstation # [id number]
== END ==
LOC: RAD 10:05
PROVIDERS: ATTEND Pediatrics
DX: R13.12 Dysphagia, oropharyngeal phase (principal)
CPT/HCPCS: 74230

== ENCOUNTER 2023-01-13 18:09 | Emergency (ER) | payer MEDICARE, MEDICAID ==
[~2023-01-13] VITALS: Ht 165 cm; Wt 45.0 kg
--- NOTE | 2023-01-13 18:48 | ED Trauma-Multisystem ---
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 AIDE REPORTS SHE WAS HELPING PATIENT UP FROM CHAIR TO GO TO RESTROOM, PATIENT TRIPPED ON FOOT REST, FELL FORWARD AND HIT HEAD ON FLOOR. NO LOC. PT REPORTS PAIN IN FACE, HEAD, AND R HIP. LAC NOTED TO FOREHEAD. AIDE REPORTS PT ALREADY HAD A BROKEN L ARM AND WEARS A LIDOCAINE PATCH. Source of Information: Patient, Caregiver, Old Records Exam Limitations: Physical Impairments (baseline dementia) History of Present Illness Date Seen by Provider: Jan 13, 2023 Time Seen by Provider: 18:31 Allergies and Home Medications Allergies Coded Allergies: melatonin (Verified Allergy, Unknown, 03/12/22) quetiapine (Verified Adverse Reaction, Unknown, CONFUSION, 08/25/22) confusion Patient Home Medication List Acetaminophen (Acetaminophen) 500 Mg Tablet, 1,000 MG PO TID, (Reported) Entered as Reported by: JANAK RAHMAN on 08/22/22 09 Acetaminophen (Acetaminophen) 325 Mg/10.15 Ml Soln, 20.3 ML PO Q6H PRN for PAIN- MILD (1-4), (Reported) Entered as Reported by: JANAK RAHMAN on 08/22/22 09 Alendronate Sodium (Alendronate Sodium) 70 Mg Tablet, 70 MG PO SUN, (Reported) Entered as Reported by: JANAK RAHMAN on 03/14/22 0851 Allopurinol (Allopurinol) 100 Mg Tablet, 100 MG PO DAILY, (Reported) Entered as Reported by: JANAK RAHMAN on 08/22/22 09 Amlodipine Besylate (Amlodipine Besylate) 5 Mg Tablet, 5 MG PO DAILY, (Reported) Entered as Reported by: JANAK RAHMAN on 08/22/22 09 Ascorbic Acid (Vitamin C) 1,000 Mg Tablet, 1,000 MG PO DAILY, (Reported) Entered as Reported by: JANAK RAHMAN on 08/22/22 09 Aspirin (Aspirin) 81 Mg Tab.chew, 81 MG PO HS, (Reported) Entered as Reported by: JANAK RAHMAN on 08/22/22 09 Carboxymethylcellulose Sodium (Refresh Tears) 0.5 % Drops, 1 DROP OU QID, (Reported) Entered as Reported by: JANAK RAHMAN on 08/22/22938 Cholecalciferol (Vitamin D3) (Vitamin D3) 125 Mcg (5000 Unit) Capsule, 125 MCG PO DAILY, (Reported) Entered as Reported by: JANAK RAHMAN on 03/14/22850 Diclofenac Sodium (Diclofenac Sodium) 1 % Gel..gram., 2 GM TOP QID PRN for PAIN- BREAKTHROUGH, (Reported) Entered as Reported by: JANAK RAHMAN on 08/22/22938 Doxazosin Mesylate (Doxazosin Mesylate) 1 Mg Tablet, 1 MG PO DAILY, (Reported) Entered as Reported by: JANAK RAHMAN on 08/22/22938 Eyelid Cleanser Combination #5 (Ocusoft Lid Scrub) 1 Each Med..pad, 1 EACH TP DAILY, (Reported) Entered as Reported by: JANAK RAHMAN on 08/22/22938 Famotidine (Pepcid) 20 Mg Tablet, 20 MG PEG BID Prescribed by: SATINDER MARRUFO on 08/28/22931 Lactulose (Lactulose) 10 Gram/15 Ml Solution, 10 GM PO BID, (Reported) Entered as Reported by: JANAK RAHMAN on 08/22/22938 Multivitamin (Multivitamin) 1 Each Tablet, 1 EACH PO DAILY, (Reported) Entered as Reported by: JANAK RAHMAN on 03/14/22850 Polyethylene Glycol 3350 (Miralax) 17 Gram Powd.pack, 17 GM PO HS, (Reported) Entered as Reported by: JANAK RAHMAN on 03/14/22850 Polymyxin B Sulf/Trimethoprim (Polytrim Eye Drops) 10,000 Unit-1 Mg/Ml Drops, 1 DROP OU TID, (Reported) Entered as Reported by: JANAK RAHMAN on 03/14/22850 Potassium Bicarbonate/Cit AC (Effer-K 20 Meq Tablet Eff) 20 Meq Tablet.eff, 20 MEQ PEG DAILY@0700 Prescribed by: SATINDER MARRUFO on 08/28/22931 Quetiapine Fumarate (Quetiapine Fumarate) 25 Mg Tablet, 12.5 MG PO HS, (Reported) Entered as Reported by: JANAK RAHMAN on 08/22/22938 Sennosides/Docusate Sodium (Senna Plus Tablet) 8.6 Mg-50 Mg Tablet, 1 EACH PO Q12H, (Reported) Entered as Reported by: JANAK RAHMAN on 03/14/22 0851 Past Ulqsoef-Abfvrt-Bctigb Hx Immunizations Up To Date Tetanus Booster (TDap): Unknown PED Vaccines UTD: No First/Initial COVID19 Vaccinat: YES Second COVID19 Vaccination Theo: YES Third COVID19 Vaccination Date: YES Seasonal Allergies Seasonal Allergies: No Past Medical History Surgery/Hospitalization HX: DEMENTIA, A-FIB,CAD, HTN, HYPOTHYROIDISM, HYPERLIPIDEMIA G TUBE Surgeries: Yes Abdominal Respiratory: No Currently Using CPAP: No Currently Using BIPAP: No Cardiac: Yes (SEES DR. MOTTA UNSURE WHY) Atrial Fibrillation, Hypertension Neurological: Yes Dementia Reproductive Disorders: No Female Reproductive Disorders: Denies Sexually Transmitted Disease: No HIV/AIDS: No Genitourinary: Yes UTI-Chronic Gastrointestinal: No Gastroesophageal Reflux Musculoskeletal: Yes Fractures, Gout Endocrine: Yes Hypothyroidsim HEENT: Yes Cataract Loss of Vision: Denies Hearing Impairment: Hard of Hearing Cancer: No Psychosocial: No Depression Integumentary: No Recent Skin Changes Blood Disorders: No Adverse Reaction/Blood Tranf: No Family Medical History Dementia G8 SISTER Diabetes mellitus 19 FATHER No Pertinent Family Hx Physical Exam Vital Signs Vital Signs - First Documented 01/13/23 18:09 Temp 36.2 Pulse 94 Resp 14 B/P (MAP) 179/78 (111) Pulse Ox 97 O2 Delivery Room Air Height, Weight, BMI Height: 5'4.00" Weight: 117lbs. 8.0oz. 53.358291eq; 16.00 BMI Method:Stated Procedures/Interventions Suture Size: 5-0 Progress/Results/Core Measures Results/Orders Vital Signs/I&O 01/13/23 18:09 Temp 36.2 Pulse 94 Resp 14 B/P (MAP) 179/78 (111) Pulse Ox 97 O2 Delivery Room Air Blood Pressure Mean: 111 Departure Departure-Patient Inst. Referrals: JANAK PRAKASH DO (PCP) Primary Care Physician [facility] (Family) Primary Care Physician HERNESTO BELLAMY Jan 13, 2023 18:48
--- NOTE | 2023-01-13 18:51 | ED Fall/Injury ---
General Chief Complaint: Trauma-Non Activation Stated Complaint: FALL | Nursing Triage Note: PT TO ED BY EMS WITH AIDE WITH C/O FALL APPROX 30 MIN UNARMED SECURITY GUARD. AIDE REPORTS SHE WAS HELPING PATIENT UP FROM CHAIR TO GO TO RESTROOM, PATIENT TRIPPED ON FOOT REST, FELL FORWARD AND HIT HEAD ON FLOOR. NO LOC. PT REPORTS PAIN IN FACE, HEAD, AND R HIP. LAC NOTED TO FOREHEAD. AIDE REPORTS PT ALREADY HAD A BROKEN L ARM AND WEARS A LIDOCAINE PATCH. Source: patient, EMS, caregiver Exam Limitations: no limitations History of Present Illness Date Seen by Provider: Jan 13, 2023 Time Seen by Provider: 18:08 Initial Comments 87yoF with PMH most notable for dementia coming in via EMS from home after a witnessed fall tripping and landing on her face. Did not pass out and remembers all events. Believes her last tetanus shot was within the past 10 years. Denies any neck or back pain. Had standed since the incident. Denies any chest pain, SOB, abd pain, n/v/d, weakness, numbness, or any other concerns. Does not take any blood thinners. EMS endorses normal vitals and a 2cm laceration to her forehead. Allergies and Home Medications Allergies Coded Allergies: melatonin (Verified Allergy, Unknown, 03/12/22) quetiapine (Verified Adverse Reaction, Unknown, CONFUSION, 08/25/22) confusion Patient Home Medication List Home Medication List Reviewed: Yes Acetaminophen (Acetaminophen) 500 Mg Tablet, 1,000 MG PO TID, (Reported) Entered as Reported by: JANAK RAHMAN on 08/22/22 09 Acetaminophen (Acetaminophen) 325 Mg/10.15 Ml Soln, 20.3 ML PO Q6H PRN for PAIN- MILD (1-4), (Reported) Entered as Reported by: JANAK RAHMAN on 08/22/22 09 Alendronate Sodium (Alendronate Sodium) 70 Mg Tablet, 70 MG PO FRI, (Reported) Entered as Reported by: JANAK RAHMAN on 03/14/22 0851 Allopurinol (Allopurinol) 100 Mg Tablet, 100 MG PO DAILY, (Reported) Entered as Reported by: JANAK RAHMAN on 08/22/22 09 Amlodipine Besylate (Amlodipine Besylate) 5 Mg Tablet, 5 MG PO DAILY, (Reported) Entered as Reported by: JANAK RAHMAN on 08/22/22938 Ascorbic Acid (Vitamin C) 1,000 Mg Tablet, 1,000 MG PO DAILY, (Reported) Entered as Reported by: JANAK RAHMAN on 08/22/22938 Aspirin (Aspirin) 81 Mg Tab.chew, 81 MG PO HS, (Reported) Entered as Reported by: JANAK RAHMAN on 08/22/22938 Carboxymethylcellulose Sodium (Refresh Tears) 0.5 % Drops, 1 DROP OU QID, (Reported) Entered as Reported by: JANAK RAHMAN on 08/22/22938 Cholecalciferol (Vitamin D3) (Vitamin D3) 125 Mcg (5000 Unit) Capsule, 125 MCG PO DAILY, (Reported) Entered as Reported by: JANAK RAHMAN on 03/14/22850 Diclofenac Sodium (Diclofenac Sodium) 1 % Gel..gram., 2 GM TOP QID PRN for PAIN- BREAKTHROUGH, (Reported) Entered as Reported by: JANAK RAHMAN on 08/22/22938 Doxazosin Mesylate (Doxazosin Mesylate) 1 Mg Tablet, 1 MG PO DAILY, (Reported) Entered as Reported by: JANAK RAHMAN on 08/22/22938 Eyelid Cleanser Combination #5 (Ocusoft Lid Scrub) 1 Each Med..pad, 1 EACH TP DAILY, (Reported) Entered as Reported by: JANAK RAHMAN on 08/22/22938 Famotidine (Pepcid) 20 Mg Tablet, 20 MG PEG BID Prescribed by: SATINDER MARRUFO on 08/28/22931 Lactulose (Lactulose) 10 Gram/15 Ml Solution, 10 GM PO BID, (Reported) Entered as Reported by: JANAK RAHMAN on 08/22/22938 Multivitamin (Multivitamin) 1 Each Tablet, 1 EACH PO DAILY, (Reported) Entered as Reported by: JANAK RAHMAN on 03/14/22850 Polyethylene Glycol 3350 (Miralax) 17 Gram Powd.pack, 17 GM PO HS, (Reported) Entered as Reported by: JANAK RAHMAN on 03/14/22850 Polymyxin B Sulf/Trimethoprim (Polytrim Eye Drops) 10,000 Unit-1 Mg/Ml Drops, 1 DROP OU TID, (Reported) Entered as Reported by: JANAK RAHMAN on 03/14/22 0851 Potassium Bicarbonate/Cit AC (Effer-K 20 Meq Tablet Eff) 20 Meq Tablet.eff, 20 MEQ PEG DAILY@0700 Prescribed by: SATINDER MARRUFO on 08/28/22 0932 Quetiapine Fumarate (Quetiapine Fumarate) 25 Mg Tablet, 12.5 MG PO HS, (Reported) Entered as Reported by: JANAK RAHMAN on 08/22/22 0939 Sennosides/Docusate Sodium (Senna Plus Tablet) 8.6 Mg-50 Mg Tablet, 1 EACH PO Q12H, (Reported) Entered as Reported by: JANAK RAHMAN on 03/14/22 0851 Review of Systems Review of Systems Constitutional: No fever Eyes: No Symptoms Reported Ears, Nose, Mouth, Throat: no symptoms reported Respiratory: no symptoms reported Cardiovascular: no symptoms reported Gastrointestinal: no symptoms reported Genitourinary: no symptoms reported Musculoskeletal: see HPI Skin: see HPI Psychiatric/Neurological: No Symptoms Reported All Other Systems Reviewed Negative Unless Noted: Yes Past Pwwinzr-Nwwzzq-Exlvto Hx Patient Social History Tobacco Use?: No Immunizations Up To Date Tetanus Booster (TDap): Unknown PED Vaccines UTD: No First/Initial COVID19 Vaccinat: YES Second COVID19 Vaccination Theo: YES Third COVID19 Vaccination Date: YES Seasonal Allergies Seasonal Allergies: No Past Medical History Surgery/Hospitalization HX: DEMENTIA, A-FIB,CAD, HTN, HYPOTHYROIDISM, HYPERLIPIDEMIA G TUBE Surgeries: Yes Abdominal Respiratory: No Currently Using CPAP: No Currently Using BIPAP: No Cardiac: Yes (SEES DR. MOTTA UNSURE WHY) Atrial Fibrillation, Hypertension Neurological: Yes Dementia Reproductive Disorders: No Female Reproductive Disorders: Denies Sexually Transmitted Disease: No HIV/AIDS: No Genitourinary: Yes UTI-Chronic Gastrointestinal: No Gastroesophageal Reflux Musculoskeletal: Yes Fractures, Gout Endocrine: Yes Hypothyroidsim HEENT: Yes Cataract Loss of Vision: Denies Hearing Impairment: Hard of Hearing Cancer: No Psychosocial: No Depression Integumentary: No Recent Skin Changes Blood Disorders: No Adverse Reaction/Blood Tranf: No Family Medical History Dementia G8 SISTER Diabetes mellitus 19 FATHER No Pertinent Family Hx Physical Exam Vital Signs Vital Signs - First Documented 01/13/23 18:09 Temp 36.2 Pulse 94 Resp 14 B/P (MAP) 179/78 (111) Pulse Ox 97 O2 Delivery Room Air Capillary Refill : Less Than 3 Seconds Height, Weight, BMI Height: 5'4.00" Weight: 117lbs. 8.0oz. 53.177841ue; 16.00 BMI Method:Stated General Appearance: WD/WN, no apparent distress HEENT: PERRL/EOMI, normal ENT inspection, pharynx normal, other (2cm laceration superfical above right eyebrow) Neck: non-tender, full range of motion, supple, normal inspection Cardiovascular: regular rate, rhythm, no edema, no murmur Respiratory: chest non-tender, lungs clear, normal breath sounds, no respiratory distress, no accessory muscle use Gastrointestinal: normal bowel sounds, non tender, soft; No distended, No guarding, No rebound Back: normal inspection, no CVA tenderness, no vertebral tenderness Extremities: normal range of motion, non-tender, normal inspection, no pedal edema, no calf tenderness, normal capillary refill Neurologic/Psychiatric: no motor/sensory deficits, alert, normal mood/affect, other (oriented to self) Skin: normal color, warm/dry Elda Coma Score Best Eye Response: (4) Open Spontaneously Best Verbal Response: (5) Oriented Best Motor Response: (6) Obeys Commands Procedures/Interventions Wound Location: Face Other Wound Location forehead Wound Length (cm): 2 Wound's Depth, Shape: superficial Wound Explored: clean Irrigated w/ Saline (ccs): 300 Suture Size: 5-0 Other Closure Supply: Steri Strip 1/4", Mastisol, Wound Adhesive Progress Wound cleaned with sterile saline and skin around it with chlorhexidine. Wound was already well opposed so tissue adhesive, Mastisol, and Steri-Strips used with good result. Patient tolerated this well. Progress/Results/Core Measures Results/Orders My Orders Orders - JOSEMANUEL LEÓN MD Ct Head/Face/Cervical Wo (01/13/23 18:44) Pelvis With Right Hip 2-3views (01/13/23 18:56) Hydrocodone/Apap 5/325 Tablet (Lortab 5 (01/13/23 19:30) Medications Given in ED Current Medications Medications Dose Ordered Sig/Kayla Route Start Time Stop Time Status Last Admin Dose Admin Acetaminophen/ Hydrocodone Bitart 1 ea ONCE ONCE PO 01/13/23 19:30 01/13/23 19:31 DC 01/13/23 19:34 1 EA Vital Signs/I&O 01/13/23 18:09 Temp 36.2 Pulse 94 Resp 14 B/P (MAP) 179/78 (111) Pulse Ox 97 O2 Delivery Room Air Blood Pressure Mean: 111 Progress Progress Note : Progress Note 87-year-old female presenting after mechanical fall. ABCs were intact and vitals were stable on presentation. Physical exam with 2 cm superficial laceration to her forehead. This was cleaned and closed with glue and Steri- Strips. Tetanus is already up-to-date. CT head, face, cervical spine ordered and interpreted by me showing no obvious intracranial hemorrhage or fracture/dislocation. This is pending radiology review. X-ray of the pelvis and right hip also ordered later when she later on was having pain that initially was not there. This was also negative for any acute fracture. Given hydrocodone through her PEG tube for pain control. I believe she is otherwise stable for discharge with outpatient follow-up. She has 14/05 care at home. She was sent home with strict return precautions Diagnostic Imaging Diagonstic Imaging: Xray (pelvis and right hip), CT (head, face, c spine) Comments NAME: SUDARSHAN ARAUJO [facility] REC#: [id number] PT STATUS: REG ER : 1935 PHYSICIAN: JOSEMANUEL LEÓN MD ADMIT DATE: 01/13/23/ER Draft Date of Exam:01/13/23 PELVIS WITH RIGHT HIP 2-3VIEWS EXAMINATION: Pelvis and right hip radiographs. EXAM DATE: 01/13/2023 7:10 PM. COMPARISON: None available. HISTORY: Pelvic, hip pain. TECHNIQUE: 3 views. FINDINGS: There is no acute fracture, dislocation or destructive osseous process. The joint spaces are normal. The soft tissues are normal. A stable irregularity of the bilateral inferior pubic rami and superior left pubic ramus, compared to 01/30/2021. IMPRESSION: No acute osseous abnormality. Dictated on workstation # [id number] Dict: 01/13/231913 Trans: 01/13/231921 [id number] Interpreted by: CHRIS,ADALI C DO Electronically signed by: NAME: SUDARSHAN ARAUJO [facility] REC#: [id number] PT STATUS: REG ER : 1935 PHYSICIAN: JOSEMANUEL LEÓN MD ADMIT DATE: 01/13/23/ER Draft Date of Exam:01/13/23 CT HEAD/FACE/CERVICAL WO EXAMINATION: CT head, face and CT cervical spine without contrast. TECHNIQUE: Multiple contiguous axial images were obtained through the face, brain and cervical spine without the use of intravenous contrast. Sagittal and coronal reformations through the cervical spine were then performed. All CT scans use one or more of the following dose optimizing techniques: automated exposure control, MA and/or KvP adjustment based on patient size and exam type or iterative reconstruction. HISTORY: Head, face and neck pain after injury. COMPARISON: 05/11/2022. FINDINGS: CT HEAD: Mild diffuse cerebral volume loss with proportional enlargement of the ventricles and sulci. Moderate hypodensities throughout the supratentorial white matter posterior hemispheres. 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 No acute intracranial hemorrhage or abnormal extra-axial fluid collection is present. Calcification of the intracranial ICAs. No hyperdense vessel. The calvarium is intact. Right frontal scalp swelling and laceration. The mastoid air cells are clear. The visualized paranasal sinuses are clear. The orbits are normal. CT C-SPINE: Vertebral body height and alignment are preserved. No acute fracture, dislocation or destructive osseous process. There is multilevel facet hypertrophy without perched facets. There is multilevel cervical spondylosis. The paraspinous soft tissues are normal. The visualized thyroid gland is normal. The visualized lung apices are normal. CT FACE: No fracture is seen in the face. The nasal bones are normal. Mandible and maxillae are normal. Zygomatic arches are normal. Pterygoid plates are normal. No soft tissue abnormality is seen. IMPRESSION: 1. No acute intracranial abnormality. Chronic microangiopathy and volume loss. 2. Degenerative changes of the cervical spine without acute osseous abnormality. 3. No acute fracture is seen within the face. 4. Right frontal scalp swelling and laceration without underlying calvarial fracture. Dictated on workstation # [id number] Dict: 01/13/231923 Trans: 01/13/231932 [facility] [id number] Interpreted by: ADALI PEREZ DO Electronically signed by: Departure Impression Primary Impression: Fall Qualified Codes: W19.XXXA - Unspecified fall, initial encounter Additional Impression: Forehead laceration Qualified Codes: S01.81XA - Laceration without foreign body of other part of head, initial encounter Disposition: HOME, SELF-CARE Condition: Stable Departure-Patient Inst. Decision time for Depature: 20:00 Referrals: JANAK PRAKASH DO (PCP) Primary Care Physician [facility] (Family) Primary Care Physician Patient Instructions: Laceration Repair With Glue ED Add. Discharge Instructions: Try not to get the wound on her forehead wet for at least 24 hours, water can briefly run over it after that for the next week, but do not submerge in water. Give it roughly 7 to 10 days before your allowing it to submerge in water at all, depending on how well the wound is scabbed over and healed. Once the Steri-Strips start peeling off, you can slowly take them off. Take Tylenol as needed for pain. JOSEMANUEL LEÓN MD Jan 13, 2023 18:51
--- NOTE | 2023-01-13 19:22 | Diagnostic Imaging Report ---
EXAMINATION: Pelvis and right hip radiographs. EXAM DATE: 01/13/2023 7:10 PM. COMPARISON: None available. HISTORY: Pelvic, hip pain. TECHNIQUE: 3 views. FINDINGS: There is no acute fracture, dislocation or destructive osseous process. The joint spaces are normal. The soft tissues are normal. A stable irregularity of the bilateral inferior pubic rami and superior left pubic ramus, compared to 01/30/2021. IMPRESSION: No acute osseous abnormality. Dictated by: Dictated on workstation # [id number]
[2023-01-13] MEDS ORDERED: HYDROcodone/APAP 5 MG/325 MG (LORTAB) TAB PO ONE (19:30)
--- NOTE | 2023-01-13 19:35 | Diagnostic Imaging Report ---
EXAMINATION: CT head, face and CT cervical spine without contrast. TECHNIQUE: Multiple contiguous axial images were obtained through the face, brain and cervical spine without the use of intravenous contrast. Sagittal and coronal reformations through the cervical spine were then performed. All CT scans use one or more of the following dose optimizing techniques: automated exposure control, MA and/or KvP adjustment based on patient size and exam type or iterative reconstruction. HISTORY: Head, face and neck pain after injury. COMPARISON: 05/11/2022. FINDINGS: CT HEAD: Mild diffuse cerebral volume loss with proportional enlargement of the ventricles and sulci. Moderate hypodensities throughout the supratentorial white matter posterior hemispheres. 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 No acute intracranial hemorrhage or abnormal extra-axial fluid collection is present. Calcification of the intracranial ICAs. No hyperdense vessel. The calvarium is intact. Right frontal scalp swelling and laceration. The mastoid air cells are clear. The visualized paranasal sinuses are clear. The orbits are normal. CT C-SPINE: Vertebral body height and alignment are preserved. No acute fracture, dislocation or destructive osseous process. There is multilevel facet hypertrophy without perched facets. There is multilevel cervical spondylosis. The paraspinous soft tissues are normal. The visualized thyroid gland is normal. The visualized lung apices are normal. CT FACE: No fracture is seen in the face. The nasal bones are normal. Mandible and maxillae are normal. Zygomatic arches are normal. Pterygoid plates are normal. No soft tissue abnormality is seen. IMPRESSION: 1. No acute intracranial abnormality. Chronic microangiopathy and volume loss. 2. Degenerative changes of the cervical spine without acute osseous abnormality. 3. No acute fracture is seen within the face. 4. Right frontal scalp swelling and laceration without underlying calvarial fracture. Dictated by: Dictated on workstation # [id number]
[2023-01-13 19:49] VITALS: BP 187/94
== END 2023-01-13 19:49 | disposition home or self-care (01) ==
LOC: EDUNIT# 18:09 → ER 18:11
DX: S01.81XA Laceration without foreign body of other part of head, initial encounter (principal); W01.198A Fall on same level from slipping, tripping and stumbling with subsequent striking against other object, initial encounter
CPT/HCPCS: 12011; 70450; 70486; 72125

== ENCOUNTER 2023-01-18 09:59 | Outpatient (RCR) | payer MEDICARE, MEDICAID | END 2023-01-19 | disposition home or self-care (01) | PROVIDERS: ATTEND Pediatrics | DX: G11.9 Hereditary ataxia, unspecified (principal) ==

== ENCOUNTER 2023-02-15 11:33 | Outpatient (RCR) | payer MEDICARE, MEDICAID | END 2023-02-18 | disposition home or self-care (01) | PROVIDERS: ATTEND Pediatrics | DX: G11.9 Hereditary ataxia, unspecified (principal) ==

== ENCOUNTER 2023-02-25 19:16 | Emergency (ER) | payer MEDICARE, MEDICAID ==
[~2023-02-25] VITALS: Ht 162.6 cm; Wt 60.5 kg
[2023-02-25 19:22] VITALS: BP 150/77
--- NOTE | 2023-02-25 19:39 | ED General ---
General Stated Complaint: EXCESS MUCUS Source of Information: Caregiver, Other (SON-IN-LAW, AND FURNISHINGS CONSERVATOR) Exam Limitations: Other (PT WITH DEMENTIA AND IS NOT TALKING) History of Present Illness Date Seen by Provider: February 25, 2023 Time Seen by Provider: 19:25 Initial Comments PT ARRIVES VIA POV FROM HOME, WITH FURNISHINGS CONSERVATOR AND SON-IN-LAW PT NEEDS WHEELCHAIR ON ARRIVAL, IS WEARING A GAIT BELT, AND NEEDS 2 PERSON FULL ASSIST FOR TRANSFER FROM WHEELCHAIR TO BED. CAREGIVERS REPORT THAT 30 MINUTES AGO, PT BEGAN "FOAMING AT THE MOUTH" --"THICK FOAMY MUCOUS" SHE WAS ALSO PATTING HER CHEST NO DIFFICULTY BREATHING SYMPTOMS SEEM TO BE BETTER AT THIS TIME. PT HAS HISTORY OF ASPIRATION, AND HAS A PERMANENT FEEDING TUBE DUE TO THIS PROBLEM SHE WAS EATING CHICKEN NUGGETS AND BELGIAN FRIES--CAREGIVERS DO NOT KNOW IF SHE GOT CHOKED OR NOT, BUT THE "FOAMING AT THE MOUTH" BEGAN IMMEDIATELY AFTER SHE WAS EATING. PT GETS ALL MEDICATIONS THROUGH FEEDING TUBE, AND JEVITY THROUGH FEEDING TUBE. BUT CAREGIVERS STATE SHE IS ALLOWED TO EAT REGULAR FOOD, DESPITE HISTORY OF ASPIRATION NO FEVER OR RECENT ILLNESS. PT HAS HAD COVID VACCINE X 2, AND FLU VACCINE IN ADDITION TO ALZHEIMER'S AND ASPIRATION, SHE ALSO HAS ATRIAL FIBRILLATION, CAD, HTN, HYPERLIPIDEMIA, HYPOTHYROIDISM AND GOUT. SHE IS AT NORMAL BASELINE PCP: DR. PRAKASH AT [facility] Allergies and Home Medications Allergies Coded Allergies: melatonin (Verified Allergy, Unknown, 03/12/22) quetiapine (Verified Adverse Reaction, Unknown, CONFUSION, 08/25/22) confusion Patient Home Medication List Home Medication List Reviewed: Yes Acetaminophen (Acetaminophen) 500 Mg Tablet, 1,000 MG PO TID, (Reported) Entered as Reported by: JANAK RAHMAN on 08/22/22 0939 Acetaminophen (Acetaminophen) 325 Mg/10.15 Ml Soln, 20.3 ML PO Q6H PRN for PAIN- MILD (1-4), (Reported) Entered as Reported by: JANAK RAHMAN on 08/22/22 0939 Alendronate Sodium (Alendronate Sodium) 70 Mg Tablet, 70 MG PO FRI, (Reported) Entered as Reported by: JANAK RAHMAN on 03/14/22 0851 Allopurinol (Allopurinol) 100 Mg Tablet, 100 MG PO DAILY, (Reported) Entered as Reported by: JANAK RAHMAN on 08/22/22938 Amlodipine Besylate (Amlodipine Besylate) 5 Mg Tablet, 5 MG PO DAILY, (Reported) Entered as Reported by: JANAK RAHMAN on 08/22/22938 Ascorbic Acid (Vitamin C) 1,000 Mg Tablet, 1,000 MG PO DAILY, (Reported) Entered as Reported by: JANAK RAHMAN on 08/22/22938 Aspirin (Aspirin) 81 Mg Tab.chew, 81 MG PO HS, (Reported) Entered as Reported by: JANAK RAHMAN on 08/22/22938 Carboxymethylcellulose Sodium (Refresh Tears) 0.5 % Drops, 1 DROP OU QID, (Reported) Entered as Reported by: JANAK RAHMAN on 08/22/22938 Cholecalciferol (Vitamin D3) (Vitamin D3) 125 Mcg (5000 Unit) Capsule, 125 MCG PO DAILY, (Reported) Entered as Reported by: JANAK RAHMAN on 03/14/22850 Diclofenac Sodium (Diclofenac Sodium) 1 % Gel..gram., 2 GM TOP QID PRN for PAIN-BREAKTHROUGH, (Reported) Entered as Reported by: JANAK RAHMAN on 08/22/22938 Doxazosin Mesylate (Doxazosin Mesylate) 1 Mg Tablet, 1 MG PO DAILY, (Reported) Entered as Reported by: JANAK RAHMAN on 08/22/22938 Eyelid Cleanser Combination #5 (Ocusoft Lid Scrub) 1 Each Med..pad, 1 EACH TP DAILY, (Reported) Entered as Reported by: JANAK RAHMAN on 08/22/22938 Famotidine (Pepcid) 20 Mg Tablet, 20 MG PEG BID Prescribed by: SATINDER MARRUFO on 08/28/22931 Lactulose (Lactulose) 10 Gram/15 Ml Solution, 10 GM PO BID, (Reported) Entered as Reported by: JANAK RAHMAN on 08/22/22938 Multivitamin (Multivitamin) 1 Each Tablet, 1 EACH PO DAILY, (Reported) Entered as Reported by: JANAK RAHMAN on 03/14/22850 Polyethylene Glycol 3350 (Miralax) 17 Gram Powd.pack, 17 GM PO HS, (Reported) Entered as Reported by: JANAK RAHMAN on 5/24/22 0851 Polymyxin B Sulf/Trimethoprim (Polytrim Eye Drops) 10,000 Unit-1 Mg/Ml Drops, 1 DROP OU TID, (Reported) Entered as Reported by: JANAK RAHMAN on 03/14/22 0851 Potassium Bicarbonate/Cit AC (Effer-K 20 Meq Tablet Eff) 20 Meq Tablet.eff, 20 MEQ PEG DAILY@0700 Prescribed by: SATINDER MARRUFO on 08/28/22 0932 Quetiapine Fumarate (Quetiapine Fumarate) 25 Mg Tablet, 12.5 MG PO HS, (Reported) Entered as Reported by: JANAK RAHMAN on 08/22/22 0939 Sennosides/Docusate Sodium (Senna Plus Tablet) 8.6 Mg-50 Mg Tablet, 1 EACH PO Q12H, (Reported) Entered as Reported by: JANAK RAHMAN on 03/14/22 0851 Review of Systems Review of Systems Constitutional: no symptoms reported EENTM: see HPI Respiratory: see HPI Cardiovascular: see HPI Gastrointestinal: see HPI Psychiatric/Neurological: See HPI Past [id number]-Oipqaf Hx Immunizations Up To Date Tetanus Booster (TDap): Unknown PED Vaccines UTD: No First/Initial COVID19 Vaccinat: YES Second COVID19 Vaccination Theo: YES Third COVID19 Vaccination Date: YES Seasonal Allergies Seasonal Allergies: No Past Medical History Surgery/Hospitalization HX: DEMENTIA, A-FIB, CAD, HTN, HYPOTHYROIDISM, HYPERLIPIDEMIA FREQUENT FALLS 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 Sexually Transmitted Disease: No HIV/AIDS: No Genitourinary: Yes UTI-Chronic Gastrointestinal: Yes (ASPIRATION) Gastroesophageal Reflux Musculoskeletal: Yes (POOR AMBULATION, FREQUENT FALLS; MULTIPLE FRACTURES) Fractures, Gout Endocrine: Yes Hypothyroidsim HEENT: Yes Cataract Loss of Vision: Denies Hearing Impairment: Hard of Hearing Cancer: No Psychosocial: Yes Depression Integumentary: No Blood Disorders: No Adverse Reaction/Blood Tranf: No Family Medical History Dementia G8 SISTER Diabetes mellitus 19 FATHER No Pertinent Family Hx Physical Exam Vital Signs Vital Signs - First Documented 02/25/23 19:22 Temp 36.4 Pulse 73 Resp 16 B/P (MAP) 150/77 (101) Pulse Ox 96 O2 Delivery Room Air Capillary Refill : Height, Weight, BMI Height: 5'4.00" Weight: 117lbs. 8.0oz. 53.551973gq; 16.00 BMI Method:Stated General Appearance: No Apparent Distress, Thin, Other (PT IS NON-VERBAL BUT IS ALERT, AND DOES NOT APPEAR TO BE IN ANY DISCOMFORT OR DISTRESS, THERE IS NO "FO AMING AT THE MOUTH" OR COUGHING OR GAGGING; ) HEENT: PERRL/EOMI, Other (EDENTULOUS. THERE IS NO DROOLING OR EXCESSIVE SECRETIONS/MUCOUS. PT IS NO GAGGING OR COUGHING OR CHOKING. SHE IS ABLE TO HANDLE SECRETIONS AT THIS TIME. ) Neck: Normal Inspection Respiratory: Normal Breath Sounds, No Accessory Muscle Use, No Respiratory Distress Cardiovascular: Regular Rate, Rhythm, No Edema, No JVD, No Murmur, Normal Peripheral Pulses Gastrointestinal: Non Tender, Soft, Other (FEEDING TUBE IN PLACE, NO SIGNS OF INFECTION OR MALFUNCTION) Extremity: No Pedal Edema Neurologic/Psychiatric: Alert, Other (MOVES ALL EXTREMITIES, BUT IS NOT TALKING OR FOLLOWING COMMANDS--PT WITH DEMENITA, AND IS AT NORMAL BASELINE. ) Skin: Normal Color, Warm/Dry Procedures/Interventions Suture Size: 5-0 Progress/Results/Core Measures Suspected Sepsis SIRS Temperature: Pulse: Respiratory Rate: Laboratory Tests 02/25/23 19:40: White Blood Count 8.8 Blood Pressure / Mean: Laboratory Tests 02/25/23 19:40: Creatinine 0.89, Platelet Count 265, Total Bilirubin 0.5 Results/Orders Lab Results Laboratory Tests Test 02/25/23 19:40 02/25/23 20:28 Range/Units White Blood Count 8.8 4.3-11.0 10^3/uL Red Blood Count 4.21 3.80-5.11 10^6/uL Hemoglobin 13.3 11.5-16.0 g/dL Hematocrit 39 35-52 % Mean Corpuscular Volume 93 80-99 fL Mean Corpuscular Hemoglobin 32 25-34 pg Mean Corpuscular Hemoglobin Concent 34 32-36 g/dL Red Cell Distribution Width 14.7 H 10.0-14.5 % Platelet Count 265 130-400 10^3/uL Mean Platelet Volume 8.9 L 9.0-12.2 fL Immature Granulocyte % (Auto) 0 % Neutrophils (%) (Auto) 56 42-75 % Lymphocytes (%) (Auto) 34 12-44 % Monocytes (%) (Auto) 9 0-12 % Eosinophils (%) (Auto) 1 0-10 % Basophils (%) (Auto) 0 0-10 % Neutrophils # (Auto) 4.9 1.8-7.8 10^3/uL Lymphocytes # (Auto) 3.0 1.0-4.0 10^3/uL Monocytes # (Auto) 0.8 0.0-1.0 10^3/uL Eosinophils # (Auto) 0.1 0.0-0.3 10^3/uL Basophils # (Auto) 0.0 0.0-0.1 10^3/uL Immature Granulocyte # (Auto) 0.0 0.0-0.1 10^3/uL Sodium Level 133 L 135-145 MMOL/L Potassium Level 3.9 3.6-5.0 MMOL/L Chloride Level 97 L 98-107 MMOL/L Carbon Dioxide Level 23 21-32 MMOL/L Anion Gap 13 5-14 MMOL/L Blood Urea Nitrogen 24 H 7-18 MG/DL Creatinine 0.89 0.60-1.30 MG/DL Estimat Glomerular Filtration Rate 62 BUN/Creatinine Ratio 27 Glucose Level 122 H 70-105 MG/DL Calcium Level 10.2 H 8.5-10.1 MG/DL Corrected Calcium 10.0 8.5-10.1 MG/DL Total Bilirubin 0.5 0.1-1.0 MG/DL Aspartate Amino Transf (AST/SGOT) 27 5-34 U/L Alanine Aminotransferase (ALT/SGPT) 25 0-55 U/L Alkaline Phosphatase 74 40-136 U/L Total Protein 7.9 6.4-8.2 GM/DL Albumin 4.2 3.2-4.5 GM/DL Influenza Type A (RT-PCR) Not Detected Not Detecte Influenza Type B (RT-PCR) Not Detected Not Detecte SARS-CoV-2 RNA (RT-PCR) Not Detected Not Detecte My Orders Orders - VICTOR HUGO,KAREY K DO Ed Iv/Invasive Line Start (02/25/23 19:25) Monitor-Rhythm Ecg Trace Only (02/25/23 19:25) Covid 19 Inhouse Test (02/25/23 19:25) Influenza A And B By Pcr (02/25/23 19:25) Isolation Central Supply Req (02/25/23 19:25) Chest 1 View, Ap/Pa Only (02/25/23 19:25) Cbc With Automated Diff (02/25/23 19:25) Comprehensive Metabolic Panel (02/25/23 19:25) Ct Chest/Abdomen/Pelvis Wo (02/25/23 20:02) Vital Signs/I&O 02/25/23 19:22 Temp 36.4 Pulse 73 Resp 16 B/P (MAP) 150/77 (101) Pulse Ox 96 O2 Delivery Room Air Capillary Refill : Progress Note : Progress Note PLACED IN ISOLATION ROOM PPE WORN PT HAS NO SYMPTOMS OF ANY KIND AT THIS TIME. SHE IS NOT DROOLING OR CHOKING OR GAGGING, AND SHE IS ABLE TO HANDLE HER SECRETIONS SHE IS RESTING QUIETLY AND DOES NOT APPEAR TO BE IN ANY DISCOMFORT OR DISTRESS VITALS STABLE UNEVENTFUL ER STAY NO COUGH NO DYSPNEA NO HYPOXIA NO FEVER NO DIFFICULTY HANDLING HER SALIVA NO VOMITING DISCUSSED TEST RESULTS WITH CAREGIVERS, DISCUSSED IMPORTANCE OF PUREED DIET AT ALL TIMES, AND TO LIMIT ORAL INGESTIONS IF POSSIBLE, SHE HAS A FEEDING TUBE FOR THIS SPECIFIC PURPOSE DUE TO HISTORY OF ASPIRATION. DISCUSSED ANTICIPATED COURSE, NEED FOR FOLLOW UP AND RETURN PRECAUTIONS. Diagnostic Imaging Comments CXR--PER RADIOLOGIST REPORT AT 2002 FINDINGS: The lungs are hyperinflated. There is no alveolar pneumonia. There is no effusion. There is no pneumothorax. Heart size is unchanged. There is no current finding of edema or failure. 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 IMPRESSION: 1. Hyperinflated but clear lungs. No finding of pneumonia or edema. 2. 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 CT CHEST/ABDOMEN/PELVIS--PER RADIOLOGIST REPORT AT [id number] FINDINGS: There is no finding of airspace consolidation or evidence to suggest an acute pneumonia. There is no suspicious nodule or mass. There is no pneumothorax. There is no pleural effusion. The visualized portion of the trachea demonstrates no evidence of a filling defect. There is no filling defect within the major pulmonary bronchi. The esophagus is unremarkable. There is cardiomegaly. There are coronary calcifications. There is no trace pericardial fluid. The liver demonstrates no focal and abnormality. There are gallstones within the gallbladder without biliary dilatation. The pancreas is atrophic without focal abnormality. The spleen is normal in size. There are splenic granulomas. There is no adrenal mass. The kidneys demonstrate no hydronephrosis or urolithiasis. There is a small hiatal hernia. A gastrostomy tube is in place. There is no finding of small or large bowel dilation or bowel obstruction. The appendix is normal. There are a few diverticula but no findings of diverticulitis. Urinary bladder demonstrates mild distention without bladder wall thickening. The uterus is age-appropriate. There is no pelvic free fluid. There is no finding of free air, abscess or adenopathy. The aorta is normal in caliber. Remote fracture deformities within the pubic rami are noted. There is no hip dislocation. There is a chronic-appearing superior endplate wedge compression of T12 with minimal height loss. There is reidentification of the patient's nonunited left humerus fracture and remote right rib fractures. No acute or suspicious osseous abnormality demonstrated. IMPRESSION: 1. No CT finding to suggest pneumonia. No pulmonary infiltrate or effusion evident. 2. No filling defect evident within the trachea or major bronchi. 3. Atherosclerosis and coronary artery disease. 4. Cholelithiasis. There is no biliary dilatation. 5. No bowel obstruction or diverticulitis. 6. No free fluid, adenopathy or abscess. 7. Remote fractures of the pelvic rami and reidentification of a nonunited fracture of the left humerus. Multiple remote right-sided rib fractures are also noted. Reviewed: Reviewed by Me Departure Impression Primary Impression: Dysphagia Additional Impressions: Dementia Feeding by G-tube History of aspiration pneumonia Disposition: 01 HOME, SELF-CARE Condition: Stable Departure-Patient Inst. Decision time for Depature: 20:40 Referrals: JANAK PRAKASH DO (PCP) Primary Care Physician [facility] (Family) Primary Care Physician Patient Instructions: Dementia ED, Dysphagia (DC), Thickening Liquids for Dysphagia Diet Add. Discharge Instructions: GIVE MEDICATIONS PRESCRIBED PUREED DIET IF PT TAKES ANYTHING BY MOUTH. FOLLOW UP WITH YOUR DR NEEDED KAREY GAY DO February 25, 2023 19:39
--- NOTE | 2023-02-25 19:49 | Diagnostic Imaging Report ---
INDICATION: Productive cough. COMPARISON: 08/22/2022. FINDINGS: The lungs are hyperinflated. There is no alveolar pneumonia. There is no effusion. There is no pneumothorax. Heart size is unchanged. There is no current finding of edema or failure. 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 IMPRESSION: 1. Hyperinflated but clear lungs. No finding of pneumonia or edema. 2. 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 Dictated by: Dictated on workstation # [id number]
[2023-02-25 19:52] LABS: BASOPHILS % (AUTO) 0 % (0-10); EOSINOPHILS # (AUTO) 0.1 10^3/uL (0.0-0.3); EOSINOPHILS % (AUTO) 1 % (0-10); HEMATOCRIT 39 % (35-52); HEMOGLOBIN 13.3 g/dL (11.5-16.0); LYMPHOCYTES % (AUTO) 34 % (12-44); MEAN CORPUSCULAR HEMOGLOBIN 32 pg (25-34); MEAN CORPUSCULAR HGB CONC 34 g/dL (32-36); MEAN CORPUSCULAR VOLUME 93 fL (80-99); MEAN PLATELET VOLUME 8.9 fL (9.0-12.2); MONOCYTES # (AUTO) 0.8 10^3/uL (0.0-1.0); MONOCYTES % (AUTO) 9 % (0-12); NEUTROPHILS # (AUTO) 4.9 10^3/uL (1.8-7.8); NEUTROPHILS % (AUTO) 56 % (42-75); PLATELET COUNT 265 10^3/uL (130-400); WHITE BLOOD COUNT 8.8 10^3/uL (4.3-11.0)
[2023-02-25 20:11] LABS: ALBUMIN 4.2 GM/DL (3.2-4.5); BILIRUBIN,TOTAL 0.5 MG/DL (0.1-1.0); CALCIUM 10.2 MG/DL (8.5-10.1); CREATININE SERUM 0.89 MG/DL (0.60-1.30); POTASSIUM 3.9 MMOL/L (3.6-5.0); TOTAL PROTEIN 7.9 GM/DL (6.4-8.2)
--- NOTE | 2023-02-25 20:34 | Diagnostic Imaging Report ---
PROCEDURE: CT chest, abdomen, and pelvis without contrast. TECHNIQUE: Multiple contiguous axial images were obtained through the chest, abdomen, and pelvis without the use of intravenous contrast. Auto Exposure Controls were utilized during the CT exam to meet ALARA standards for radiation dose reduction. INDICATION: Shortness of breath. Choked on food. Evaluate for aspiration. COMPARISON: Chest radiograph from the same day. FINDINGS: There is no finding of airspace consolidation or evidence to suggest an acute pneumonia. There is no suspicious nodule or mass. There is no pneumothorax. There is no pleural effusion. The visualized portion of the trachea demonstrates no evidence of a filling defect. There is no filling defect within the major pulmonary bronchi. The esophagus is unremarkable. There is cardiomegaly. There are coronary calcifications. There is no trace pericardial fluid. The liver demonstrates no focal and abnormality. There are gallstones within the gallbladder without biliary dilatation. The pancreas is atrophic without focal abnormality. The spleen is normal in size. There are splenic granulomas. There is no adrenal mass. The kidneys demonstrate no hydronephrosis or urolithiasis. There is a small hiatal hernia. A gastrostomy tube is in place. There is no finding of small or large bowel dilation or bowel obstruction. The appendix is normal. There are a few diverticula but no findings of diverticulitis. Urinary bladder demonstrates mild distention without bladder wall thickening. The uterus is age-appropriate. There is no pelvic free fluid. There is no finding of free air, abscess or adenopathy. The aorta is normal in caliber. Remote fracture deformities within the pubic rami are noted. There is no hip dislocation. There is a chronic-appearing superior endplate wedge compression of T12 with minimal height loss. There is reidentification of the patient's nonunited left humerus fracture and remote right rib fractures. No acute or suspicious osseous abnormality demonstrated. IMPRESSION: 1. No CT finding to suggest pneumonia. No pulmonary infiltrate or effusion evident. 2. No filling defect evident within the trachea or major bronchi. 3. Atherosclerosis and coronary artery disease. 4. Cholelithiasis. There is no biliary dilatation. 5. No bowel obstruction or diverticulitis. 6. No free fluid, adenopathy or abscess. 7. Remote fractures of the pelvic rami and reidentification of a nonunited fracture of the left humerus. Multiple remote right-sided rib fractures are also noted. Dictated by: Dictated on workstation # [id number]
== END 2023-02-25 21:20 | disposition home or self-care (01) ==
LOC: EDUNIT# 19:16 → ER 19:19
DX: R13.10 Dysphagia, unspecified (principal); F03.90 Unspecified dementia, unspecified severity, without behavioral disturbance, psychotic disturbance, mood disturbance, and anxiety; Z87.01 Personal history of pneumonia (recurrent); Z93.1 Gastrostomy status; Z20.822 Contact with and (suspected) exposure to COVID-19
CPT/HCPCS: 36415; 71045; 71250; 74176; 80053; 85025; 87636; 93041

== ENCOUNTER 2023-03-15 11:22 | Outpatient (RCR) | payer MEDICARE, MEDICAID ==
[~2023-03-15 11:22] MED LIST changes: +POLY10DR20; -POLY10DR31
== END 2023-03-15 12:00 | disposition home or self-care (01) ==
PROVIDERS: ATTEND Pediatrics
DX: G11.9 Hereditary ataxia, unspecified (principal)

== ENCOUNTER 2023-04-02 05:28 | Emergency (ER) | payer MEDICARE, MEDICAID ==
[~2023-04-02] VITALS: Ht 162.6 cm; Wt 55.0 kg
--- NOTE | 2023-04-02 05:53 | ED GI ---
General Chief Complaint: Abdominal/GI Problems Stated Complaint: PULLED OUT PEG TUBE Nursing Triage Note: Pt presents via wheelchair with caregivers. She pulled out her peg tube sometime between 0330 and 0430. Pt has peg for adding nutrition and medication administration. Source of Information: Caregiver (BASSAM MARTINEZ MD) History of Present Illness Date Seen by Provider: Apr 02, 2023 Time Seen by Provider: 05:38 Initial Comments Patient is an 87-year-old female who presents to the emergency department with caregivers chief complaint dislodged PEG tube. Happened between 330 and 430 this morning. She had a 20 Taiwanese. Timing/Duration: 1-3 Hours (BASSAM MARTINEZ MD) Allergies and Home Medications Allergies Coded Allergies: melatonin (Verified Allergy, Unknown, 03/12/22) quetiapine (Verified Adverse Reaction, Unknown, CONFUSION, 08/25/22) confusion Patient Home Medication List Home Medication List Reviewed: Yes (BASSAM MARTINEZ MD) Acetaminophen (Acetaminophen) 500 Mg Tablet, 1,000 MG PO TID, (Reported) Entered as Reported by: JANAK RAHMAN on 08/22/22938 Acetaminophen (Acetaminophen) 325 Mg/10.15 Ml Soln, 20.3 ML PO Q6H PRN for PAIN- MILD (1-4), (Reported) Entered as Reported by: JANAK RAHMAN on 08/22/22938 Alendronate Sodium (Alendronate Sodium) 70 Mg Tablet, 70 MG PO SUN, (Reported) Entered as Reported by: JANAK RAHMAN on 03/14/22 0851 Allopurinol (Allopurinol) 100 Mg Tablet, 100 MG PO DAILY, (Reported) Entered as Reported by: JANAK RAHMAN on 08/22/22938 Amlodipine Besylate (Amlodipine Besylate) 5 Mg Tablet, 5 MG PO DAILY, (Reported) Entered as Reported by: JANAK RAHMAN on 08/22/22938 Ascorbic Acid (Vitamin C) 1,000 Mg Tablet, 1,000 MG PO DAILY, (Reported) Entered as Reported by: JANAK RAHMAN on 08/22/22938 Aspirin (Aspirin) 81 Mg Tab.chew, 81 MG PO HS, (Reported) Entered as Reported by: JANAK RAHMAN on 08/22/22938 Carboxymethylcellulose Sodium (Refresh Tears) 0.5 % Drops, 1 DROP OU QID, (Reported) Entered as Reported by: JANAK RAHMAN on 08/22/22938 Cholecalciferol (Vitamin D3) (Vitamin D3) 125 Mcg (5000 Unit) Capsule, 125 MCG PO DAILY, (Reported) Entered as Reported by: JANAK RAHMAN on 03/14/22850 Diclofenac Sodium (Diclofenac Sodium) 1 % Gel..gram., 2 GM TOP QID PRN for PAIN- BREAKTHROUGH, (Reported) Entered as Reported by: JANAK RAHMAN on 08/22/22938 Doxazosin Mesylate (Doxazosin Mesylate) 1 Mg Tablet, 1 MG PO DAILY, (Reported) Entered as Reported by: JANAK RAHMAN on 08/22/22938 Eyelid Cleanser Combination #5 (Ocusoft Lid Scrub) 1 Each Med..pad, 1 EACH TP DAILY, (Reported) Entered as Reported by: JANAK RAHMAN on 08/22/22938 Famotidine (Pepcid) 20 Mg Tablet, 20 MG PEG BID Prescribed by: SATINDER MARRUFO on 08/28/22931 Lactulose (Lactulose) 10 Gram/15 Ml Solution, 10 GM PO BID, (Reported) Entered as Reported by: JANAK RAHMAN on 08/22/22938 Multivitamin (Multivitamin) 1 Each Tablet, 1 EACH PO DAILY, (Reported) Entered as Reported by: JANAK RAHMAN on 03/14/22850 Polyethylene Glycol 3350 (Miralax) 17 Gram Powd.pack, 17 GM PO HS, (Reported) Entered as Reported by: JANAK RAHMAN on 03/14/22850 Polymyxin B Sulf/Trimethoprim (Polytrim Eye Drops) 10,000 Unit-1 Mg/Ml Drops, 1 DROP OU TID, (Reported) Entered as Reported by: JANAK RAHMAN on 03/14/22850 Potassium Bicarbonate/Cit AC (Effer-K 20 Meq Tablet Eff) 20 Meq Tablet.eff, 20 MEQ PEG DAILY@0700 Prescribed by: SATINDER MARRUFO on 08/28/22931 Quetiapine Fumarate (Quetiapine Fumarate) 25 Mg Tablet, 12.5 MG PO HS, (Reported) Entered as Reported by: JANAK RAHMAN on 11/1/22 0939 Sennosides/Docusate Sodium (Senna Plus Tablet) 8.6 Mg-50 Mg Tablet, 1 EACH PO Q12H, (Reported) Entered as Reported by: JANAK RAHMAN on 03/14/22 0851 Review of Systems Review of Systems Constitutional: see HPI Gastrointestinal: Other (peg tube dislodged) (BASSAM MARTINEZ MD) Past Curyvku-Hzqasc-Jogszh Hx Immunizations Up To Date Tetanus Booster (TDap): Unknown PED Vaccines UTD: No First/Initial COVID19 Vaccinat: YES Second COVID19 Vaccination Theo: YES Third COVID19 Vaccination Date: YES (BASSAM MARTINEZ MD) Seasonal Allergies Seasonal Allergies: No (BASSAM MARTINEZ MD) Past Medical History Surgery/Hospitalization HX: DEMENTIA, A-FIB, CAD, HTN, HYPOTHYROIDISM, HYPERLIPIDEMIA FREQUENT FALLS 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 Sexually Transmitted Disease: No HIV/AIDS: No Genitourinary: Yes UTI-Chronic Gastrointestinal: Yes (ASPIRATION) Gastroesophageal Reflux Musculoskeletal: Yes (POOR AMBULATION, FREQUENT FALLS; MULTIPLE FRACTURES) Fractures, Gout Endocrine: Yes Hypothyroidsim HEENT: Yes Cataract Loss of Vision: Denies Hearing Impairment: Hard of Hearing Cancer: No Psychosocial: Yes Depression Integumentary: No Blood Disorders: No Adverse Reaction/Blood Tranf: No (BASSAM MARTINEZ MD) Family Medical History Dementia G8 SISTER Diabetes mellitus 19 FATHER No Pertinent Family Hx (BASSAM MARTINEZ MD) Physical Exam Vital Signs Vital Signs - First Documented 04/02/23 05:38 Temp 35.3 Pulse 80 Resp 16 B/P (MAP) 142/73 (96) (KRISS SAGASTUME MD) Vital Signs Capillary Refill : Less Than 3 Seconds (BASSAM MARTINEZ MD) Height/Weight/BMI Height: 5'4.00" Weight: 117lbs. 8.0oz. 53.292629mn; 20.00 BMI Method:Stated General Appearance: WD/WN, no apparent distress HEENT: PERRL/EOMI Respiratory: no respiratory distress, no accessory muscle use Gastrointestinal: soft, other (stoma left upper quadrant with a little surrounding dark blood) Neurologic/Psychiatric: alert Skin: normal color, warm/dry (BASSAM MARTINEZ MD) Procedures/Interventions Suture Size: 5-0 (BASSAM MARTINEZ MD) Progress/Results/Core Measures Results/Orders Medications Given in ED Current Medications Medications Dose Ordered Sig/Kayla Route Start Time Stop Time Status Last Admin Dose Admin Diatrizoate Meglum/ Diatrizoate Sod 120 ml ONCE ONCE NG 04/02/23 06:30 04/02/23 06:31 DC 04/02/23 06:27 30 ML (KRISS SAGASTUME MD) Vital Signs/I&O 04/02/23 05:38 Temp 35.3 Pulse 80 Resp 16 B/P (MAP) 142/73 (96) (KRISS SAGASTUME MD) Blood Pressure Mean: 96 Progress Progress Note : Time: 05:51 Progress Note Skin around stoma cleansed with normal saline. 20Fr Peg lubricated with KY jelly and gentle pressure used to replace the peg. KUB ordered with gastroview to confirm placement. (BASSAM MARTINEZ MD) Progress Note : Progress Note 0645: I did review x-ray of the abdomen after PEG tube replacement. This does show Gastrografin within stomach and proximal small intestines without extravasation on my interpretation. Discharged home with return precautions. Verbalized understanding instructions and agreement with plan. (KRISS SAGASTUME MD) Diagnostic Imaging Diagonstic Imaging: Xray Plain Films/CT/US/NM/MRI: abdomen Comments NAME: SHERLEYCARSONSandraShelbyUGOSUDARSHAN [facility] REC#: [id number] PT STATUS: REG ER : 1935 PHYSICIAN: BASSAM MARTINEZ MD ADMIT DATE: 04/02/23/ER Draft Date of Exam:04/02/23 PEG TUBE CHECK INDICATION: PEG tube was pulled out. Counter Clerk radiograph shows catheter projecting over the left hemiabdomen. Contrast was injected and frontal and crosstable lateral views performed showed the retention balloon inflated within the gastric lumen. Contrast injection opacifies the nondistended stomach with gastric emptying and opacification throughout the length of the duodenum. No extravasation. IMPRESSION: The device is patent and in excellent position, the stomach is unobstructed. Dictated on workstation # [id number] Dict: 04/02/23 0627 Trans: 04/02/23 0702 [facility] [id number] Interpreted by: COLT GUILLORY Electronically signed by: (KRISS SAGASTUME MD) Departure Impression Primary Impression: Dislodged gastrostomy tube Disposition: 01 HOME, SELF-CARE Condition: Improved Departure-Patient Inst. Decision time for Depature: 06:48 (KRISS SAGASTUME MD) Referrals: JANAK PRAKASH DO (PCP) Primary Care Physician [facility] (Family) Primary Care Physician Patient Instructions: Percutaneous Endoscopic Gastrostomy (DC) Add. Discharge Instructions: You may resume peg tube feeds. Return to the Emergency Department for any new or concerning symptoms. Copy Copies To 1: JANAK PRAKASH KATHRYN M MD Apr 02, 2023 05:53 KRISS SAGASTUME MD Apr 02, 2023 06:48
[2023-04-02] MEDS ORDERED: DIATRIZOATE MEGLUM/SODIUM 37% 120 ML (GASTROGRAFIN) NG ONE (06:30)
--- NOTE | 2023-04-02 07:04 | Diagnostic Imaging Report ---
INDICATION: PEG tube was pulled out. Tailings Man radiograph shows catheter projecting over the left hemiabdomen. Contrast was injected and frontal and crosstable lateral views performed showed the retention balloon inflated within the gastric lumen. Contrast injection opacifies the nondistended stomach with gastric emptying and opacification throughout the length of the duodenum. No extravasation. IMPRESSION: The device is patent and in excellent position, the stomach is unobstructed. Dictated by: Dictated on workstation # [id number]
[2023-04-02 07:17] VITALS: BP 124/67
== END 2023-04-02 07:17 | disposition home or self-care (01) ==
LOC: EDUNIT# 05:28 → ER 05:32
DX: K94.23 Gastrostomy malfunction (principal)
CPT/HCPCS: 49465; 99281

== ENCOUNTER 2023-04-14 19:59 | Emergency (ER) | payer MEDICARE, MEDICAID ==
[2023-04-14 20:06] VITALS: BP 152/80
[2023-04-14 20:43] LABS: BASOPHILS % (AUTO) 0 % (0-10); EOSINOPHILS # (AUTO) 0.1 10^3/uL (0.0-0.3); EOSINOPHILS % (AUTO) 1 % (0-10); HEMATOCRIT 36 % (35-52); HEMOGLOBIN 11.9 g/dL (11.5-16.0); LYMPHOCYTES # (AUTO) 1.7 10^3/uL (1.0-4.0); LYMPHOCYTES % (AUTO) 20 % (12-44); MEAN CORPUSCULAR HEMOGLOBIN 31 pg (25-34); MEAN CORPUSCULAR HGB CONC 33 g/dL (32-36); MEAN CORPUSCULAR VOLUME 94 fL (80-99); MEAN PLATELET VOLUME 8.7 fL (9.0-12.2); MONOCYTES # (AUTO) 0.9 10^3/uL (0.0-1.0); MONOCYTES % (AUTO) 10 % (0-12); NEUTROPHILS # (AUTO) 5.7 10^3/uL (1.8-7.8); NEUTROPHILS % (AUTO) 68 % (42-75); PLATELET COUNT 244 10^3/uL (130-400); WHITE BLOOD COUNT 8.3 10^3/uL (4.3-11.0)
--- NOTE | 2023-04-14 20:50 | Diagnostic Imaging Report ---
PROCEDURE: CT head without contrast. TECHNIQUE: Multiple contiguous axial images were obtained through the brain without the use of intravenous contrast. Auto Exposure Controls were utilized during the CT exam to meet ALARA standards for radiation dose reduction. INDICATION: Questionable seizure. COMPARISON: 01/13/2023. FINDINGS: There is prominence of the ventricles and sulci. There is no hydrocephalus or cerebral edema. There is no midline shift or mass-effect. There is no intracranial mass, hemorrhage or extra-axial fluid collection. There is some diffuse decreased attenuation of the periventricular white matter which is nonspecific. The visualized paranasal sinuses and mastoid air cells are clear. There are no regional areas of decreased attenuation appreciated to suggest an acute CVA. IMPRESSION: 1. No acute intracranial process. 2. Age-appropriate atrophy. 3. Decreased attenuation of the periventricular white matter which is nonspecific, however, likely reflects senescent change and/or chronic small vessel ischemic disease. Dictated by: Dictated on workstation # [id number]
--- NOTE | 2023-04-14 20:55 | ED General ---
General Chief Complaint: Neurological Problems Stated Complaint: POSSIBLE STROKE Nursing Triage Note: PT TO ROOM 03 VIA [facility] WITH C/O POSSIBLE STROKE. EMS REPORTS LEFT SIDE WEAKNESS THAT IS NEW. EMS REPORTS PT HAS HX OF TIA. LAST KNOW WELL TIME WAS 192 TODAY. Source of Information: EMS, Family (son) History of Present Illness Date Seen by Provider: Apr 14, 2023 Time Seen by Provider: 20:10 Initial Comments Patient is an 87-year-old female who presents from a local senior care with chief complaint of concern for possible seizure. Her son is with her and states that she was in a wheelchair, outside and they decided to go back inside with staff. Son states that he witnessed her shake all over briefly and then slumped back in her chair. He states he rubbed the back of her hair and her shoulders and she came back around. He was concerned that she may have had a seizure or another stroke. He states that she is back to baseline. She has had previous subdural hematoma 2 years ago which left her nonverbal. She is usually PEG tube fed. She can nod her head yes and no. Otherwise she is not independent/ambulatory. Son states that she has had an "infection" recently but he is not sure what it was. Son is a difficult historian secondary to deafness and mental challenges. 2122 Further history from Sonja's nighttime caregiver who was actually with her during this event -she states that Sonja pushed back in her chair and became very "stiff" and her eyes "glazed over". She then seemed to shake for about 30 seconds. She was very poorly responsive for about 5 minutes after this. No t rauma. Her nighttime caregiver has never seen her do anything like this in the past. Timing/Duration: 1 Hour Severity: Mild Allergies and Home Medications Allergies Coded Allergies: melatonin (Verified Allergy, Unknown, 03/12/22) quetiapine (Verified Adverse Reaction, Unknown, CONFUSION, 08/25/22) confusion Patient Home Medication List Home Medication List Reviewed: Yes Acetaminophen (Acetaminophen) 500 Mg Tablet, 1,000 MG PO TID, (Reported) Entered as Reported by: JANAK RAHMAN on 08/22/22 0900 Acetaminophen (Acetaminophen) 325 Mg/10.15 Ml Soln, 20.3 ML PO Q6H PRN for PAIN- MILD (1-4), (Reported) Entered as Reported by: JANAK RAHMAN on 08/22/22938 Alendronate Sodium (Alendronate Sodium) 70 Mg Tablet, 70 MG PO FRI, (Reported) Entered as Reported by: JANAK RAHMAN on 03/14/22850 Allopurinol (Allopurinol) 100 Mg Tablet, 100 MG PO DAILY, (Reported) Entered as Reported by: JANAK RAHMAN on 08/22/22938 Amlodipine Besylate (Amlodipine Besylate) 5 Mg Tablet, 5 MG PO DAILY, (Reported) Entered as Reported by: JANAK RAHMAN on 08/22/22938 Ascorbic Acid (Vitamin C) 1,000 Mg Tablet, 1,000 MG PO DAILY, (Reported) Entered as Reported by: JANAK RAHMAN on 08/22/22938 Aspirin (Aspirin) 81 Mg Tab.chew, 81 MG PO HS, (Reported) Entered as Reported by: JANAK RAHMAN on 08/22/22938 Carboxymethylcellulose Sodium (Refresh Tears) 0.5 % Drops, 1 DROP OU QID, (Reported) Entered as Reported by: JANAK RAHMAN on 08/22/22938 Cholecalciferol (Vitamin D3) (Vitamin D3) 125 Mcg (5000 Unit) Capsule, 125 MCG PO DAILY, (Reported) Entered as Reported by: JANAK RAHMAN on 03/14/22850 Diclofenac Sodium (Diclofenac Sodium) 1 % Gel..gram., 2 GM TOP QID PRN for PAIN- BREAKTHROUGH, (Reported) Entered as Reported by: JANAK RAHMAN on 08/22/22938 Doxazosin Mesylate (Doxazosin Mesylate) 1 Mg Tablet, 1 MG PO DAILY, (Reported) Entered as Reported by: JANAK RAHMAN on 08/22/22938 Eyelid Cleanser Combination #5 (Ocusoft Lid Scrub) 1 Each Med..pad, 1 EACH TP DAILY, (Reported) Entered as Reported by: JANAK RAHMAN on 08/22/22938 Famotidine (Pepcid) 20 Mg Tablet, 20 MG PEG BID Prescribed by: SATINDER MARRUFO on 08/28/22 09 Lactulose (Lactulose) 10 Gram/15 Ml Solution, 10 GM PO BID, (Reported) Entered as Reported by: JANAK RAHMAN on 11/1/22 0939 Multivitamin (Multivitamin) 1 Each Tablet, 1 EACH PO DAILY, (Reported) Entered as Reported by: JANAK RAHMAN on 03/14/22 08 Polyethylene Glycol 3350 (Miralax) 17 Gram Powd.pack, 17 GM PO HS, (Reported) Entered as Reported by: JANAK RAHMAN on 03/14/22 08 Polymyxin B Sulf/Trimethoprim (Polytrim Eye Drops) 10,000 Unit-1 Mg/Ml Drops, 1 DROP OU TID, (Reported) Entered as Reported by: JANAK RAHMAN on 03/14/22 08 Potassium Bicarbonate/Cit AC (Effer-K 20 Meq Tablet Eff) 20 Meq Tablet.eff, 20 MEQ PEG DAILY@0700 Prescribed by: SATINDER MARRUFO on 08/28/22 0932 Quetiapine Fumarate (Quetiapine Fumarate) 25 Mg Tablet, 12.5 MG PO HS, (Reported) Entered as Reported by: JANAK RAHMAN on 08/22/22 09 Sennosides/Docusate Sodium (Senna Plus Tablet) 8.6 Mg-50 Mg Tablet, 1 EACH PO Q12H, (Reported) Entered as Reported by: JANAK RAHMAN on 03/14/22 08 Review of Systems Review of Systems Constitutional: see HPI Unable to obtain from the patient due to prior stroke/nonverbal status Past Yktumuv-Sxscyl-Wluczz Hx Patient Social History Tobacco Use?: No Smoking Status: Never a Smoker Smokeless Tobacco Frequency: Never a User Use of E-Cig and/or Vaping dev: No Use of E-Cig and/or Vaping Maxwell: Never a User Substance use?: No Alcohol Use?: No Pt feels they are or have been: No Immunizations Up To Date Tetanus Booster (TDap): Unknown PED Vaccines UTD: No First/Initial COVID19 Vaccinat: YES Second COVID19 Vaccination Theo: YES Third COVID19 Vaccination Date: YES Seasonal Allergies Seasonal Allergies: No Past Medical History Surgery/Hospitalization HX: DEMENTIA, A-FIB, CAD, HTN, HYPOTHYROIDISM, HYPERLIPIDEMIA FREQUENT FALLS 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 Sexually Transmitted Disease: No HIV/AIDS: No Genitourinary: Yes UTI-Chronic Gastrointestinal: Yes (ASPIRATION) Gastroesophageal Reflux Musculoskeletal: Yes (POOR AMBULATION, FREQUENT FALLS; MULTIPLE FRACTURES) Fractures, Gout Endocrine: Yes Hypothyroidsim HEENT: Yes Cataract Loss of Vision: Denies Hearing Impairment: Hard of Hearing Cancer: No Psychosocial: Yes Depression Integumentary: No Blood Disorders: No Adverse Reaction/Blood Tranf: No Family Medical History Dementia G8 SISTER Diabetes mellitus 19 FATHER No Pertinent Family Hx Physical Exam Vital Signs Vital Signs - First Documented 04/14/23 20:06 Temp 36.1 Pulse 82 Resp 14 B/P (MAP) 152/80 (104) O2 Delivery Room Air Capillary Refill : Less Than 3 Seconds Height, Weight, BMI Height: 5'4.00" Weight: 117lbs. 8.0oz. 53.064147wv; 20.00 BMI Method:Stated General Appearance: No Apparent Distress, Thin Eyes: Bilateral Eye PERRL HEENT: Other (Dry oral mucosa) Respiratory: Lungs Clear, Normal Breath Sounds, No Accessory Muscle Use, No Respiratory Distress Cardiovascular: Regular Rate, Rhythm, Normal Peripheral Pulses Gastrointestinal: Soft, Tenderness (Lower abdomen seems to be tender to deep palpation positive bowel sounds) Procedures/Interventions Suture Size: 5-0 Progress/Results/Core Measures Suspected Sepsis SIRS Temperature: Pulse: 82 Respiratory Rate: 14 Laboratory Tests 04/14/23 20:38: White Blood Count 8.3 Blood Pressure 152 /80 Mean: 104 Laboratory Tests 04/14/23 20:38: Creatinine 0.98, Platelet Count 244, Total Bilirubin 0.4 Results/Orders Lab Results Laboratory Tests Test 04/14/23 20:38 04/14/23 20:55 Range/Units White Blood Count 8.3 4.3-11.0 10^3/uL Red Blood Count 3.83 3.80-5.11 10^6/uL Hemoglobin 11.9 11.5-16.0 g/dL Hematocrit 36 35-52 % Mean Corpuscular Volume 94 80-99 fL Mean Corpuscular Hemoglobin 31 25-34 pg Mean Corpuscular Hemoglobin Concent 33 32-36 g/dL Red Cell Distribution Width 14.3 10.0-14.5 % Platelet Count 244 130-400 10^3/uL Mean Platelet Volume 8.7 L 9.0-12.2 fL Immature Granulocyte % (Auto) 0 % Neutrophils (%) (Auto) 68 42-75 % Lymphocytes (%) (Auto) 20 12-44 % Monocytes (%) (Auto) 10 0-12 % Eosinophils (%) (Auto) 1 0-10 % Basophils (%) (Auto) 0 0-10 % Neutrophils # (Auto) 5.7 1.8-7.8 10^3/uL Lymphocytes # (Auto) 1.7 1.0-4.0 10^3/uL Monocytes # (Auto) 0.9 0.0-1.0 10^3/uL Eosinophils # (Auto) 0.1 0.0-0.3 10^3/uL Basophils # (Auto) 0.0 0.0-0.1 10^3/uL Immature Granulocyte # (Auto) 0.0 0.0-0.1 10^3/uL Sodium Level 135 135-145 MMOL/L Potassium Level 4.4 3.6-5.0 MMOL/L Chloride Level 100 98-107 MMOL/L Carbon Dioxide Level 24 21-32 MMOL/L Anion Gap 11 5-14 MMOL/L Blood Urea Nitrogen 23 H 7-18 MG/DL Creatinine 0.98 0.60-1.30 MG/DL Estimat Glomerular Filtration Rate 56 BUN/Creatinine Ratio 23 Glucose Level 132 H 70-105 MG/DL Calcium Level 10.0 8.5-10.1 MG/DL Corrected Calcium 10.2 H 8.5-10.1 MG/DL Total Bilirubin 0.4 0.1-1.0 MG/DL Aspartate Amino Transf (AST/SGOT) 23 5-34 U/L Alanine Aminotransferase (ALT/SGPT) 25 0-55 U/L Alkaline Phosphatase 76 40-136 U/L Total Protein 6.9 6.4-8.2 GM/DL Albumin 3.7 3.2-4.5 GM/DL Urine Color YELLOW Urine Clarity CLEAR Urine pH 7.0 5-9 Urine Specific [place] 1.010 L 1.016-1.022 Urine Protein TRACE H NEGATIVE Urine Glucose (UA) NEGATIVE NEGATIVE Urine Ketones NEGATIVE NEGATIVE Urine Nitrite NEGATIVE NEGATIVE Urine Bilirubin NEGATIVE NEGATIVE Urine Urobilinogen 0.2 < = 1.0 MG/DL Urine Leukocyte Esterase 1+ H NEGATIVE Urine RBC (Auto) NEGATIVE NEGATIVE Urine RBC NONE /HPF Urine WBC 10-25 H /HPF Urine Squamous Epithelial Cells RARE /HPF Urine Crystals NONE /LPF Urine Bacteria FEW H /HPF Urine Casts PRESENT /LPF Urine Hyaline Casts 2-5 H /LPF Urine Mucus NEGATIVE /LPF Urine Culture Indicated YES My Orders Orders - BASSAM MARTINEZ MD Ed Iv/Invasive Line Start (04/14/23 20:21) Cbc With Automated Diff (04/14/23 20:21) Comprehensive Metabolic Panel (04/14/23 20:21) Ua Culture If Indicated (04/14/23 20:21) Bladder Scan (04/14/23 20:21) Ct Head Wo (04/14/23 20:21) Urine Culture (04/14/23 20:55) Levetiracetam Injection (Keppra Injectio (04/14/23 21:22) Cephalexin Oral Suspension (Keflex Oral (04/14/23 21:22) Vital Signs/I&O 04/14/23 20:06 Temp 36.1 Pulse 82 Resp 14 B/P (MAP) 152/80 (104) O2 Delivery Room Air Capillary Refill : Less Than 3 Seconds Blood Pressure Mean: 104 Progress Note : Time: 21:15 Progress Note Patient seen and evaluated by me. Evaluation today includes physical exam, CBC, Chem-12, urinalysis and CT head without contrast. Pertinent physical exam findings elderly female in no acute distress, nonverbal due to prior "stroke". She appears to move all of her extremities equally. No facial droop is appreciated. She is able to answer "yes and no" it seems appropriately with head nods. She seems to have a little tenderness in the lower abdomen on palpation. No lower extremity edema. Pupils are equal. Differential diagnosis based on history and physical exam, TIA, stroke, seizure, infection. Labs independently reviewed and interpreted by me. CBC is normal. Chem-12 is pertinent for just slightly elevated glucose at 132. Cath UA specimen is negative for nitrite, positive 1+ LE, 10-25 white blood cells and mild bacteria. CT head noncontrast shows findings consistent with advanced age, atrophy small vessel disease. Her vital signs remained stable. She is reexamined at this time, smiling more alert. Continues to move all 4 extremities equally no evidence of unilateral weakness. No facial droop. Suspect she may have had a seizure potentially due to urinary tract infection or prior stroke. Will load with 500 mg of Keppra and start her on Keppra twice daily to follow-up with her primary care physician. I have discussed this with the caregiver at the bedside as well as her daughter via phone. All questions are sought and answered. Diagnostic Imaging Diagonstic Imaging: CT Comments [facility] [place], [place] NAME: SONJA ARAUJO [facility] REC#: [id number] PT STATUS: REG ER : 1935 PHYSICIAN: BASSAM MARTINEZ MD ADMIT DATE: 04/14/23/ER Signed Date of Exam:04/14/23 CT HEAD WO PROCEDURE: CT head without contrast. TECHNIQUE: Multiple contiguous axial images were obtained through the brain without the use of intravenous contrast. Auto Exposure Controls were utilized during the CT exam to meet ALARA standards for radiation dose reduction. INDICATION: Questionable seizure. COMPARISON: 01/13/2023. FINDINGS: There is prominence of the ventricles and sulci. There is no hydrocephalus or cerebral edema. There is no midline shift or mass-effect. There is no intracranial mass, hemorrhage or extra-axial fluid collection. There is some diffuse decreased attenuation of the periventricular white matter which is nonspecific. The visualized paranasal sinuses and mastoid air cells are clear. There are no regional areas of decreased attenuation appreciated to suggest an acute CVA. IMPRESSION: 1. No acute intracranial process. 2. Age-appropriate atrophy. 3. Decreased attenuation of the periventricular white matter which is nonspecific, however, likely reflects senescent change and/or chronic small vessel ischemic disease. Dictated by: Dictated on workstation # [id number] Dict: 04/14/232045 Trans: 04/14/232103 [facility] [id number] Interpreted by: REMBERTO UPTON MD Electronically signed by: REMBERTO UPTON MD 04/14/232103 Departure Impression Primary Impression: Urinary tract infection Qualified Codes: N30.00 - Acute cystitis without hematuria Additional Impression: Concern for seizure Disposition: HOME, SELF-CARE Condition: Stable Departure-Patient Inst. Decision time for Depature: 21:24 Referrals: JANAK PRAKASH DO (PCP) Primary Care Physician [facility] (Family) Primary Care Physician Patient Instructions: Urinary tract infections in adults Add. Discharge Instructions: Give the Keflex 500 mg per PEG tube 3 times a day for the next 3 days. I am starting her on Keppra which is a seizure medication. 5 ml Twice daily per PEG tube. Please call on Sunday morning for a follow-up appointment with Dr. Prakash next week. Monitor for further shaking episodes or episodes of unresponsiveness. Return to the emergency department for any new, concerning or emergent complaints. Scripts Levetiracetam (Keppra) 100 Mg/Ml Solution 500 MG PEG BID, #300 ML 1 Refill Prov: BASSAM MARTINEZ MD 04/14/23 Cephalexin (Cephalexin) 250 Mg/5 Ml Susp.recon 500 MG PEG TID for 3 Days, #100 ML Prov: BASSAM MARTINEZ MD 04/14/23 Copy Copies To 1: JANAK PRAKASH KATHRYN M MD Apr 14, 2023 20:55
[2023-04-14 21:03] LABS: BILIRUBIN,URINE NEGATIVE (NEGATIVE); CLARITY,URINE CLEAR; COLOR,URINE YELLOW; GLUCOSE, URINE (UA) NEGATIVE (NEGATIVE); KETONES,URINE NEGATIVE (NEGATIVE); LEUKOCYTE ESTERASE ,URINE 1+ (NEGATIVE); NITRITE,URINE NEGATIVE (NEGATIVE); PROTEIN,URINE TRACE (NEGATIVE)
[2023-04-14 21:12] LABS: BACTERIA,URINE FEW /HPF; SQUAMOUS EPITHELIAL CELL,UR RARE /HPF
[2023-04-14 21:13] LABS: ALBUMIN 3.7 GM/DL (3.2-4.5); BILIRUBIN,TOTAL 0.4 MG/DL (0.1-1.0); CREATININE SERUM 0.98 MG/DL (0.60-1.30); POTASSIUM 4.4 MMOL/L (3.6-5.0); TOTAL PROTEIN 6.9 GM/DL (6.4-8.2)
[2023-04-14] MEDS ORDERED: CEPHALEXIN 250 MG/5 ML 100 ML (KEFLEX) SUSP GT STA (21:22)
[2023-04-14] MEDS ORDERED: LEVE100S16 PEG (21:40)
[2023-04-14] MEDS ORDERED: CEPH250S PEG (21:40)
[2023-04-15] MEDS ORDERED: LEVE100S16 PEG (11:10)
[2023-04-15] MEDS ORDERED: CEPH250S PEG (11:10)
== END 2023-04-14 21:58 | disposition home or self-care (01) ==
LOC: EDUNIT# 19:59 → ER 20:01
DX: N39.0 Urinary tract infection, site not specified (principal); R73.9 Hyperglycemia, unspecified
CPT/HCPCS: 36415; 70450; 80053; 81000; 85025; 87077; 87088

== ENCOUNTER 2023-05-18 19:45 | Inpatient (IN) | payer MEDICARE, MEDICAID ==
[~2023-05-18] VITALS: Ht 163 cm; Wt 53.2 kg
[~2023-05-18 19:45] MED LIST changes: +ACET-2840; +ALLO100T; -ALLO100T PO; +AMLO-250; +AMOX600S4 GT; +ASCO100024; -ASCO100024 PO; +ASPI-999; +CEPH250S PEG; +FAMO20TA5; +LEVE100S16 PEG; +LIDO700A45 TP; +ONDA-105; +PANT40SU GT; +POLY10DR20 OU; +POLY238P32; +PSYL1PAC10; +SULF473O12 GT; +[UNRECOGNIZED DRUG - CODE] PO
--- NOTE | 2023-05-18 20:01 | ED Respiratory ---
General Chief Complaint: Respiratory Problems Stated Complaint: SOA History of Present Illness Date Seen by Provider: May 18, 2023 Time Seen by Provider: 19:47 Initial Comments PT ARRIVES VIA EMS FROM HOME EMS WAS CALLED FOR PT WITH "BREATHING WEIRD AND WANT A CHEST XRAY DONE" PT WAS ADMITTED 05/04/23-05/15/23 FOR UPPER GI BLEED, UTI HOSPICE WAS DISCUSSED, BUT FAMILY DECLINED FAMILY NOW WANT "SHORT TERM PLACEMENT" AT [facility] PT HAD BEEN ADMITTED TO VIA [facility], THEN FAMILY MOVED HER BACK HOME SEPTEMBER 2022 SHE HAS HAD A MULTITUDE OF VISITS HERE. ESPECIALLY SINCE SHE HAS BEEN AT HOME. PT WITH DEMENTIA, AND IS NON-VERBAL SHE HAS A SON WHO IS DEAF, AND HAS DIAMOND POLISHER 24 HOURS, AND BOTH ARE HERE WITH PT. SHE HAD BEEN IN INTERMEDIATE, AND THEN MOVED BACK HOME IN SEPTEMBER 2022 DIAMOND POLISHER REPORTS THAT PT IS AT NORMAL BASELINE. PT HAS LONG HISTORY OF ASPIRATION WITH PNEUMONIA, AND HAS A PERMANENT FEEDING TUBE IN PLACE FOR THAT PROBLEM HOWEVER, PT CONTINUES TO EAT FOOD, DESPITE EXTENSIVE HISTORY OF ASPIRATION --DIAMOND POLISHER STATES SHE EATS 3 MEALS A DAY PLUS 2 SNACKS DURING THE DAY, AND GETS TUBE FEEDING TWICE A DAY WITH JEVITY. SHE EATS BOTH SOFT AND SOLID FOOD. SHE HAS CHRONIC ATRIAL FIBRILLATION, CAD, HTN, HYPERLIPIDEMIA, HYPOTHYROIDISM AND GOUT SHE HAS FREQUENT FALLS WITH MULTIPLE FRACTURES AND HAD SUBDURAL HEMATOMA 02/2022 DUE TO FALL SHE IS NOT ON BLOOD THINNERS AT THIS TIME, BUT SHE DOES TAKE 81 MG ASPIRIN DAILY, SHE IS NOT TAKING NSAIDS. Allergies and Home Medications Allergies Coded Allergies: melatonin (Verified Allergy, Unknown, 03/12/22) quetiapine (Verified Adverse Reaction, Unknown, CONFUSION, 08/25/22) confusion Patient Home Medication List Acetaminophen (Tylenol 8 Hour) 650 Mg Tablet.er, 650 MG Q8H, (Reported) Entered as Reported by: JANAK RAHMAN on 05/04/23 1350 Allopurinol (Allopurinol) 100 Mg Tablet, 100 MG DAILY, (Reported) Entered as Reported by: JANAK RAHMAN on 08/22/22 0939 Amlodipine Besylate (Amlodipine Besylate) 5 Mg Tablet, 5 MG DAILY, (Reported) Entered as Reported by: JANAK RAHMAN on 08/22/22 0939 Amoxicillin/Potassium Clav (Amox Tr-K Clv 600-42.9/5 Susp) 600 Mg-42.9 Mg/5 Ml Susp.recon, 0 MG GT BID Prescribed by: HEATHER DYER on 05/15/23 1152 Ascorbic Acid (Vitamin C) 1,000 Mg Tablet, 1,000 MG DAILY, (Reported) Entered as Reported by: JANAK RAHMAN on 08/22/22 09 Aspirin (Aspirin) 81 Mg Tab.chew, 81 MG HS, (Reported) Entered as Reported by: JANAK RAHMAN on 08/22/22 09 Carboxymethylcellulose Sodium (Refresh Tears) 0.5 % Drops, 1 DROP OU QID, (Reported) Entered as Reported by: JANAK RAHMAN on 08/22/22 09 Cholecalciferol (Vitamin D3) (Vitamin D3) 125 Mcg/Ml (5000 Unit/Ml) Drops, 0.5 ML PO HS, (Reported) Entered as Reported by: JANAK RAHMAN on 05/04/23 1356 Diclofenac Sodium (Diclofenac Sodium) 1 % Gel..gram., 2 GM TOP QID PRN for PAIN- BREAKTHROUGH, (Reported) Entered as Reported by: JANAK RAHMAN on 08/22/22 09 Eyelid Cleanser Combination #5 (Ocusoft Lid Scrub) 1 Each Med..pad, 1 EACH TP DAILY, (Reported) Entered as Reported by: JANAK RAHMAN on 08/22/22 09 Lidocaine (Lidocaine 5% Patch) 5 % Adh..patch, 1 EACH TP DAILY, (Reported) Entered as Reported by: JANAK RAHMAN on 05/04/23 1354 Ondansetron HCl (Ondansetron HCl) 4 Mg Tablet, 4 MG Q8H PRN for NAUSEA/VOMITING- 1ST LINE, (Reported) Entered as Reported by: JANAK RAHMAN on 05/04/23 1350 Pantoprazole Sodium (Protonix) 40 Mg Granpkt.dr, 40 MG GT BID Prescribed by: HEATHER DYER on 05/15/23 115 Polyethylene Glycol 3350 ([id number]) 17 Gram/Dose Powder, 17 GM DAILY, (Reported) Entered as Reported by: JANAK RAHMAN on 05/04/23 135 Polymyxin B Sulf/Trimethoprim (Polymyxin B-Tmp Eye Drops) 10,000 Unit-1 Mg/Ml Drops, 1 DROP OU TID, (Reported) Entered as Reported by: JANAK RAHMAN on 05/04/23 1350 Psyllium Husk (with Sugar) (Metamucil Packet) 3.4 Gram Powd.pack, 3.4 GM BID, (Reported) Entered as Reported by: JANAK RAHMAN on 05/04/23 1350 Discontinued Medications Famotidine (Famotidine) 20 Mg Tablet, 20 MG BID, (Reported) Entered as Reported by: JANAK RAHMAN on 05/04/23 1350 Sulfamethoxazole/Trimethoprim (Sulfamethoxazole-Tmp Susp 200MG/40MG/5ML) 200 Mg- 40 Mg/5 Ml Oral.susp, 5 ML GT DAILY, (Reported) Entered as Reported by: JANAK RAHMAN on 05/04/23 1350 Past Hjcvxsp-Sjrrty-Whtvha Hx Immunizations Up To Date Tetanus Booster (TDap): Unknown PED Vaccines UTD: No First/Initial COVID19 Vaccinat: YES Second COVID19 Vaccination Theo: YES Third COVID19 Vaccination Date: YES Seasonal Allergies Seasonal Allergies: No Past Medical History Surgery/Hospitalization HX: DEMENTIA, A-FIB, CAD, HTN, HYPOTHYROIDISM, HYPERLIPIDEMIAFREQUENT FALLSSUBDURAL HEMATOMA 02/2022 DUE TO FALL; G TUBE Surgeries: Yes (FEEDING TUBE) Abdominal Respiratory: Yes (ASPIRATION PNEUMONIA) Pneumonia Currently Using CPAP: No Currently Using BIPAP: No Cardiac: Yes (SEES DR. 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 Sexually Transmitted Disease: No HIV/AIDS: No Genitourinary: Yes UTI-Chronic Gastrointestinal: Yes (ASPIRATION) Gastroesophageal Reflux Musculoskeletal: Yes (POOR AMBULATION, FREQUENT FALLS; MULTIPLE FRACTURES) Fractures, Gout Endocrine: Yes Hypothyroidsim HEENT: Yes Cataract Loss of Vision: Denies Hearing Impairment: Hard of Hearing Cancer: No Psychosocial: Yes Depression Integumentary: No Blood Disorders: No Adverse Reaction/Blood Tranf: No Family Medical History Dementia G8 SISTER Diabetes mellitus 19 FATHER No Pertinent Family Hx LEFT HUMERUS FRACTURE PELVIS FRACTURES/PUBIC RAMI FRACTURES RIB FRACTURES PT HAD WITNESSED SEIZURE ACTIVITY 04/13/23 AND WAS STARTED ON KEPPRA HERE IN ER. Physical Exam Vital Signs - First Documented Capillary Refill : Height: 5'4.00" Weight: 117lbs. 8.0oz. 53.044561il; 20.91 BMI Method:Stated General Appearance: WD/WN, no apparent distress, other (PT WITH FREQUENT MOIST COUGH. SHE IS CONSTANTLY GROANING, AND SCREAMS WITH IV STICKS. SHE IS BUNDLED IN FLEECE BLANKET AND HAS A THICK/FUZZY NECK PILLOW ALL AROUND HER NECK. ) Respiratory: other (MILDLY DYSPNEIC, WITH RALES AND RHONCHI ON RIGHT) Cardiovascular: regular rate, rhythm Gastrointestinal: soft, other (FEEDING TUBE IN PLACE) Extremities: normal capillary refill Neurologic/Psychiatric: other (APHASIC, NORMAL BASELINE MENTATION / NEUROLOGICAL BASELINE WITH DEMENTIA. N) Procedures/Interventions Suture Size: 5-0 Progress/Results/Core Measures Suspected Sepsis SIRS Temperature: Pulse: Respiratory Rate: Laboratory Tests 05/18/23 19:58: White Blood Count 10.0 Blood Pressure / Mean: Laboratory Tests 05/18/23 19:58: Creatinine 0.90, Platelet Count 367, Total Bilirubin 0.3 Results/Orders Lab Results Laboratory Tests Test 05/18/23 19:58 05/18/23 20:15 05/18/23 20:22 Range/Units White Blood Count 10.0 4.3-11.0 10^3/uL Red Blood Count 3.22 L 3.80-5.11 10^6/uL Hemoglobin 9.8 L 11.5-16.0 g/dL Hematocrit 30 L 35-52 % Mean Corpuscular Volume 94 80-99 fL Mean Corpuscular Hemoglobin 30 25-34 pg Mean Corpuscular Hemoglobin Concent 32 32-36 g/dL Red Cell Distribution Width 14.7 H 10.0-14.5 % Platelet Count 367 130-400 10^3/uL Mean Platelet Volume 10.4 9.0-12.2 fL Immature Granulocyte % (Auto) 1 % Neutrophils (%) (Auto) 69 42-75 % Lymphocytes (%) (Auto) 21 12-44 % Monocytes (%) (Auto) 7 0-12 % Eosinophils (%) (Auto) 2 0-10 % Basophils (%) (Auto) 0 0-10 % Neutrophils # (Auto) 6.9 1.8-7.8 10^3/uL Lymphocytes # (Auto) 2.1 1.0-4.0 10^3/uL Monocytes # (Auto) 0.7 0.0-1.0 10^3/uL Eosinophils # (Auto) 0.2 0.0-0.3 10^3/uL Basophils # (Auto) 0.0 0.0-0.1 10^3/uL Immature Granulocyte # (Auto) 0.1 0.0-0.1 10^3/uL Sodium Level 134 L 135-145 MMOL/L Potassium Level 4.6 3.6-5.0 MMOL/L Chloride Level 98 98-107 MMOL/L Carbon Dioxide Level 25 21-32 MMOL/L Anion Gap 11 5-14 MMOL/L Blood Urea Nitrogen 40 H 7-18 MG/DL Creatinine 0.90 0.60-1.30 MG/DL Estimat Glomerular Filtration Rate 61 BUN/Creatinine Ratio 44 Glucose Level 118 H 70-105 MG/DL Calcium Level 9.4 8.5-10.1 MG/DL Corrected Calcium 10.1 8.5-10.1 MG/DL Magnesium Level 2.2 1.6-2.4 MG/DL Total Bilirubin 0.3 0.1-1.0 MG/DL Aspartate Amino Transf (AST/SGOT) 21 5-34 U/L Alanine Aminotransferase (ALT/SGPT) 31 0-55 U/L Alkaline Phosphatase 87 40-136 U/L Troponin I 0.052 H <0.028 NG/ML B-Type Natriuretic Peptide 190.2 H <100.0 PG/ML Total Protein 7.2 6.4-8.2 GM/DL Albumin 3.1 L 3.2-4.5 GM/DL Urine Color YELLOW Urine Clarity CLEAR Urine pH 7.5 5-9 Urine Specific [place] <=1.005 1.016-1.022 Urine Protein NEGATIVE NEGATIVE Urine Glucose (UA) NEGATIVE NEGATIVE Urine Ketones NEGATIVE NEGATIVE Urine Nitrite NEGATIVE NEGATIVE Urine Bilirubin NEGATIVE NEGATIVE Urine Urobilinogen 1.0 < = 1.0 MG/DL Urine Leukocyte Esterase NEGATIVE NEGATIVE Urine RBC (Auto) NEGATIVE NEGATIVE Urine RBC NONE /HPF Urine WBC NONE /HPF Urine Squamous Epithelial Cells 2-5 /HPF Urine Crystals NONE /LPF Urine Bacteria NEGATIVE /HPF Urine Casts NONE /LPF Urine Mucus NEGATIVE /LPF Urine Culture Indicated NO My Orders Orders - VICTOR HUGO,KAREY K DO Ed Iv/Invasive Line Start (05/18/23 19:49) Ekg Tracing (05/18/23 19:49) O2 (05/18/23 19:49) Monitor-Rhythm Ecg Trace Only (05/18/23 19:49) Chest 1 View, Ap/Pa Only (05/18/23 19:49) Bnp Sydnie (05/18/23 19:49) Cbc With Automated Diff (05/18/23 19:49) Comprehensive Metabolic Panel (05/18/23 19:49) Magnesium (05/18/23 19:49) Troponin I Sydnie (05/18/23 19:49) Catheter(Urinary) Insert & Ass 03,15 (05/18/23 20:01) Ua Culture If Indicated (05/18/23 20:01) Lidocaine 2% (Urojet) (Xylocaine Urojet) (05/18/23 20:15) Covid 19 Inhouse Test (05/18/23 20:19) Influenza A And B By Pcr (05/18/23 20:19) Cefepime Injection (Cefepime Injection) (05/18/23 20:45) Blood Culture (05/18/23 20:05) Blood Culture (05/18/23 19:58) Vital Signs Adult Sepsis Patie Q15M (05/18/23 20:44) O2 (05/18/23 20:44) Remove Rings In Anticipation O (05/18/23 20:44) Lactic Acid Analyzer (05/18/23 20:44) Lactated Ringers (Lr 1000 Ml Iv Solution (05/18/23 20:45) Vital Signs/I&O 05/18/23 05/18/23 05/18/23 19:45 19:45 19:45 Temp 36.9 Pulse 87 Resp 18 B/P (MAP) 134/70 (91) Pulse Ox 97 O2 Delivery Nasal Cannula Nasal Cannula Nasal Cannula O2 Flow Rate 2.00 2.00 2.00 Capillary Refill : Progress Note : Progress Note ECG Initial ECG Impression Date: May 18, 2023 Initial ECG Impression Time: 19:59 Initial ECG Rate: 80 Initial ECG Rhythm: Normal Sinus Initial ECG Intervals: Normal Initial ECG Impression: Nonspecific Changes (INFERIOR Q WAVES) Initial ECG Comparisson: Unchanged Comment INTERPRETED BY ME Diagnostic Imaging Comments CXR--PER RADIOLOGIST REPORT AT 2050 FINDINGS: There is a small left pleural effusion with left basilar airspace opacity, mildly improved since the prior exam. There is no pneumothorax. The cardiac silhouette is stable in size. There is aortic atherosclerosis. Bone density is diffusely low. IMPRESSION: Small left pleural effusion with left basilar airspace opacity, mildly improved since 05/10/2023. Reviewed: Reviewed by Me Departure Impression Primary Impression: Aspiration pneumonia Additional Impressions: PEG (percutaneous endoscopic gastrostomy) status CHRONIC DYSPHAGIA AND ASPIRATION Dementia Disposition: ADMITTED INPATIENT Condition: Stable Admissions Decision to Admit Reason: Admit from ER (General) Decision to Admit/Date: May 18, 2023 Time/Decision to Admit Time: 20:45 Departure-Patient Inst. Referrals: JANAK PRAKASH DO (PCP/Family) Primary Care Physician KAREY GAY DO May 18, 2023 20:01
[2023-05-18 20:06] LABS: BASOPHILS % (AUTO) 0 % (0-10); EOSINOPHILS # (AUTO) 0.2 10^3/uL (0.0-0.3); EOSINOPHILS % (AUTO) 2 % (0-10); HEMATOCRIT 30 % (35-52); HEMOGLOBIN 9.8 g/dL (11.5-16.0); LYMPHOCYTES # (AUTO) 2.1 10^3/uL (1.0-4.0); LYMPHOCYTES % (AUTO) 21 % (12-44); MEAN CORPUSCULAR HEMOGLOBIN 30 pg (25-34); MEAN CORPUSCULAR HGB CONC 32 g/dL (32-36); MEAN CORPUSCULAR VOLUME 94 fL (80-99); MEAN PLATELET VOLUME 10.4 fL (9.0-12.2); MONOCYTES # (AUTO) 0.7 10^3/uL (0.0-1.0); MONOCYTES % (AUTO) 7 % (0-12); NEUTROPHILS # (AUTO) 6.9 10^3/uL (1.8-7.8); NEUTROPHILS % (AUTO) 69 % (42-75); PLATELET COUNT 367 10^3/uL (130-400)
[2023-05-18] MEDS ORDERED: LIDOCAINE UROJET 2% GEL 10 ML PKG TOP ONE (20:15)
[2023-05-18 20:24] LABS: ALBUMIN 3.1 GM/DL (3.2-4.5); BILIRUBIN,TOTAL 0.3 MG/DL (0.1-1.0); CALCIUM 9.4 MG/DL (8.5-10.1); CREATININE SERUM 0.9 MG/DL (0.60-1.30); MAGNESIUM 2.2 MG/DL (1.6-2.4); POTASSIUM 4.6 MMOL/L (3.6-5.0); TOTAL PROTEIN 7.2 GM/DL (6.4-8.2)
[2023-05-18 20:25] LABS: BILIRUBIN,URINE NEGATIVE (NEGATIVE); CLARITY,URINE CLEAR; COLOR,URINE YELLOW; GLUCOSE, URINE (UA) NEGATIVE (NEGATIVE); KETONES,URINE NEGATIVE (NEGATIVE); LEUKOCYTE ESTERASE ,URINE NEGATIVE (NEGATIVE); NITRITE,URINE NEGATIVE (NEGATIVE); PH,URINE 7.5 (5-9); PROTEIN,URINE NEGATIVE (NEGATIVE)
[2023-05-18 20:32] LABS: BACTERIA,URINE NEGATIVE /HPF
[2023-05-18] MEDS ORDERED: LACTATED RINGERS 1,000 ML IV ONE (20:45)
[2023-05-18] MEDS ORDERED: CEFEPIME INJECTION 1,000 MG in NS (IVPB) 50 ML 50 ML IV ONE (20:45)
--- NOTE | 2023-05-18 20:46 | Diagnostic Imaging Report ---
HISTORY: Dyspnea. COMPARISON: 05/10/2023. TECHNIQUE: Frontal view of the chest. FINDINGS: There is a small left pleural effusion with left basilar airspace opacity, mildly improved since the prior exam. There is no pneumothorax. The cardiac silhouette is stable in size. There is aortic atherosclerosis. Bone density is diffusely low. IMPRESSION: Small left pleural effusion with left basilar airspace opacity, mildly improved since 05/10/2023. Dictated by: Dictated on workstation # [id number]
[2023-05-18 21:50] VITALS: BP 155/74
[2023-05-18] MEDS ORDERED: ONDANSETRON 4 MG/2 ML (SDV) Z0FRAN IV PRN (22:30)
[2023-05-18] MEDS ORDERED: ACETAMINOPHEN 325 MG/10.15 ML ORAL SOLN UDC PEG PRN (22:30)
[2023-05-18] MEDS ORDERED: RT-ALBUTEROL SULF 2.5 MG/3 ML PRE-MIX VIAL INH PRN (23:00)
[2023-05-18] MEDS: LACTATED RINGERS 1,000 ML IV SCH (23:20)
[2023-05-19] VITALS (7 sets, daily range): BP systolic 146–166; BP diastolic 66–79
[2023-05-19 05:31] LABS: BASOPHILS % (AUTO) 0 % (0-10); EOSINOPHILS # (AUTO) 0.2 10^3/uL (0.0-0.3); EOSINOPHILS % (AUTO) 2 % (0-10); HEMATOCRIT 27 % (35-52); HEMOGLOBIN 8.8 g/dL (11.5-16.0); LYMPHOCYTES # (AUTO) 1.8 10^3/uL (1.0-4.0); LYMPHOCYTES % (AUTO) 21 % (12-44); MEAN CORPUSCULAR HEMOGLOBIN 30 pg (25-34); MEAN CORPUSCULAR HGB CONC 32 g/dL (32-36); MEAN CORPUSCULAR VOLUME 93 fL (80-99); MEAN PLATELET VOLUME 10.5 fL (9.0-12.2); MONOCYTES # (AUTO) 0.8 10^3/uL (0.0-1.0); MONOCYTES % (AUTO) 9 % (0-12); NEUTROPHILS # (AUTO) 5.8 10^3/uL (1.8-7.8); NEUTROPHILS % (AUTO) 67 % (42-75); PLATELET COUNT 313 10^3/uL (130-400); WHITE BLOOD COUNT 8.6 10^3/uL (4.3-11.0)
[2023-05-19 05:40] LABS: ALBUMIN 2.7 GM/DL (3.2-4.5)
[2023-05-19 05:41] LABS: POTASSIUM 4.3 MMOL/L (3.6-5.0)
[2023-05-19 05:42] LABS: CALCIUM 9.4 MG/DL (8.5-10.1)
[2023-05-19 05:45] LABS: BILIRUBIN,TOTAL 0.3 MG/DL (0.1-1.0)
[2023-05-19 05:47] LABS: CREATININE SERUM 0.79 MG/DL (0.60-1.30)
[2023-05-19] MEDS: CEFEPIME 1,000 MG/NS 50 ML IVPB IV SCH ×6 (06:02→20:21)
[2023-05-19] MEDS: LACTATED RINGERS 1,000 ML IV SCH ×4 (06:02→23:54)
--- NOTE | 2023-05-19 06:58 | History & Physical-Hospitalist ---
History of Present Illness HPI/Chief Complaint Is an 87-year-old female known to me from recent admission who presented to the emergency department due to aspiration. 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 Was eating yesterday and started to choke prompting her evaluation in the emergency department. She had an increase in her oxygen requirement. Family reported to the ER that they are now interested in pursuing short-term care home placement for skilled therapies. No family is at bedside to assist with history and patient is unable to provide any. All of his history is obtained from the records. Source: patient Exam Limitations: clinical condition Date Seen 05/19/23 Time Seen by a Provider: 06:00 Attending Physician Ulises Mercado DO PCP Admitting Physician: Caron Hoang MD Attending Physician: Caron Hoang MD Referring Physician Date of Admission May 18, 2023 at 21:51 Home Medications & Allergies Home Medications Reviewed patient Home Medication Reconciliation performed by pharmacy medication reconciliations cable television technician and/or nursing. Patients Allergies have been reviewed. Allergies Allergies Coded Allergies melatonin (Verified Allergy, Unknown, 03/12/22) quetiapine (Verified Adverse Reaction, Unknown, CONFUSION, 08/25/22) confusion Past Keiefgc-Zeuvob-Dzuhea Hx Patient Social History Tobacco Use?: No Use of E-Cig and/or Vaping dev: No Substance use?: No Alcohol Use?: No Pt feels they are or have been: No Immunizations Up To Date Date of Influenza Vaccine: Jul 22, 2017 First/Initial COVID19 Vaccinat: YES Second COVID19 Vaccination Theo: YES Tetanus Booster (TDap): Unknown Hepatitis A: No Hepatitis B: No PED Vaccines UTD: No Date of Pneumonia Vaccine: Jul 22, 2017 Seasonal Allergies Seasonal Allergies: No Current Status status: No status: No Advance Directives: No Communicates: Does Not Communicate Primary Language: Macedonian Preferred Spoken Language: Macedonian Is interpretation needed?: No Sensory deficits: Speech impairment Past Medical History Surgeries: Abdominal Pneumonia Currently Using CPAP: No Currently Using BIPAP: No Atrial Fibrillation, Coronary Artery Disease, High Cholesterol, Hypertension Dementia, Traumatic Brain Injury 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 Review of Systems Constitutional: see HPI Physical Exam Physical Exam Vital Signs Vital Signs - First Documented Capillary Refill : Less Than 3 Seconds Height, Weight, BMI Height: 5'4.00" Weight: 117lbs. 8.0oz. 53.821683gm; 20.02 BMI Method:Stated General Appearance: No Apparent Distress, Chronically ill, Thin Respiratory: Lungs Clear, No Respiratory Distress Cardiovascular: Regular Rate, Rhythm Gastrointestinal: Normal Bowel Sounds, Soft, Other (PEG) Extremity: No Pedal Edema Neurologic/Psychiatric: Alert, Disoriented Results Results/Procedures Labs Laboratory Tests 05/18/23 19:58 05/19/23 05:18 Patient resulted labs reviewed. Assessment/Plan Admission Diagnosis Aspiration Pna Admission Status: Observation Assessment and Plan Aspiration pneumonia Acute respiratory failure with hypoxia Dysphagia PEG Continue abx 2lpm currently, wean as able NPO Continue tube feeds (4 can Jevity a day with 150mL FWF following each can) Family interested in pursuing NH placement upon DC HTN HLD Cerebellar ataxia Dementia Humeral fracture Chronic debility Advanced age Chronic, stable Caregiver at home DVT prophylaxis: Lovenox Diagnosis/Problems Diagnosis/Problems (1) Aspiration pneumonia Status: Acute (2) Cerebellar ataxia Status: Chronic (3) Poor prognosis Status: Acute (4) Aspiration into airway Status: Acute CARON HOANG MD May 19, 2023 06:58
--- NOTE | 2023-05-19 08:24 | Diagnostic Imaging Report ---
EXAMINATION: Chest 1 view HISTORY: Pneumonia COMPARISON: 05/18/2023 FINDINGS: Heart size and pulmonary vasculature are normal. The visualized lungs are clear. Left lung base is not entirely visualized. There may be small left pleural effusion and left basilar opacities which do not appear significantly changed from prior radiograph. No pneumothorax. The osseous structures are intact. IMPRESSION: 1. No acute radiographic abnormality in the nonvisualized chest. 2. Partially visualized but likely stable small left pleural effusion with basilar opacities. Dictated by: Dictated on workstation # [id number]
[2023-05-19] MEDS: RT-ALBUTEROL SULF 2.5 MG/3 ML PRE-MIX VIAL INH SCH ×2 (08:50→21:04)
[2023-05-19] MEDS: LORazepam INJ 2 MG/ML (ATIVAN) VIAL IV PRN ×2 (14:34→17:14)
[2023-05-19] MEDS: fentaNYL INJ 100 MCG/2 ML AMP IV PRN (18:27)
[2023-05-20 04:10] VITALS: BP 167/73
[2023-05-20] MEDS: CEFEPIME 1,000 MG/NS 50 ML IVPB IV SCH ×6 (05:30→20:00)
[2023-05-20 05:45] LABS: BASOPHILS % (AUTO) 0 % (0-10); EOSINOPHILS # (AUTO) 0.1 10^3/uL (0.0-0.3); EOSINOPHILS % (AUTO) 2 % (0-10); HEMATOCRIT 30 % (35-52); HEMOGLOBIN 9.6 g/dL (11.5-16.0); LYMPHOCYTES % (AUTO) 22 % (12-44); MEAN CORPUSCULAR HEMOGLOBIN 30 pg (25-34); MEAN CORPUSCULAR HGB CONC 32 g/dL (32-36); MEAN CORPUSCULAR VOLUME 93 fL (80-99); MEAN PLATELET VOLUME 10.3 fL (9.0-12.2); MONOCYTES # (AUTO) 0.9 10^3/uL (0.0-1.0); MONOCYTES % (AUTO) 10 % (0-12); NEUTROPHILS # (AUTO) 6.2 10^3/uL (1.8-7.8); NEUTROPHILS % (AUTO) 67 % (42-75); PLATELET COUNT 341 10^3/uL (130-400); WHITE BLOOD COUNT 9.4 10^3/uL (4.3-11.0)
[2023-05-20 05:54] LABS: ALBUMIN 3.1 GM/DL (3.2-4.5); POTASSIUM 4.3 MMOL/L (3.6-5.0)
[2023-05-20 05:57] LABS: TOTAL PROTEIN 6.9 GM/DL (6.4-8.2)
[2023-05-20 05:58] LABS: BILIRUBIN,TOTAL 0.4 MG/DL (0.1-1.0)
[2023-05-20 06:00] LABS: CREATININE SERUM 0.77 MG/DL (0.60-1.30)
[2023-05-20] MEDS: RT-ALBUTEROL SULF 2.5 MG/3 ML PRE-MIX VIAL INH SCH ×2 (07:26→22:02)
[2023-05-20 08:12] VITALS: BP 163/72
[2023-05-20] MEDS: LACTATED RINGERS 1,000 ML IV SCH ×2 (09:53→14:29)
[2023-05-20 11:50] VITALS: BP 147/68
--- NOTE | 2023-05-20 12:21 | Progress Note - Hospitalist ---
Subjective HPI/CC On Admission Date Seen by Provider: May 20, 2023 Is an 87-year-old female known to me from recent admission who presented to the emergency department due to aspiration. 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 Was eating yesterday and started to choke prompting her evaluation in the emergency department. She had an increase in her oxygen requirement. Family reported to the ER that they are now interested in pursuing short-term detention placement for skilled therapies. No family is at bedside to assist with history and patient is unable to provide any. All of his history is obtained from the records. Subjective/Events-last exam Pt laying in bed sleeping. No family at bedside. Patient unable to provide ROS. Focused Exam Lactate Level 05/18/23 19:58: Lactic Acid Level 0.85 Objective Exam Vital Signs Vital Signs Date Time Temp Pulse Resp B/P (MAP) Pulse Ox O2 Delivery O2 Flow Rate FiO2 05/20/23 11:50 37.4 103 20 147/68 (94) 92 Room Air 05/20/23 07:27 0.00 Capillary Refill : Less Than 3 Seconds General Appearance: No Apparent Distress, Chronically ill, Thin Respiratory: No Respiratory Distress, Crackles, Decreased Breath Sounds Cardiovascular: Regular Rate, Rhythm Gastrointestinal: Normal Bowel Sounds, Soft Extremity: No Pedal Edema Neurologic/Psychiatric: Alert, Disoriented Results/Procedures Lab Laboratory Tests 05/20/23 05:26 Patient resulted labs reviewed. Assessment/Plan Assessment and Plan Assess & Plan/Chief Complaint Aspiration pneumonia Acute respiratory failure with hypoxia Dysphagia PEG Continue abx On room air NPO Continue tube feeds (4 can Jevity a day with 150mL FWF following each can) Spoke with daughter Emani about prognosis and how it appears pt is facing the end of her life as she is no longer able to clear her own secretions- she expresses understanding of the disease process and where he mom is in that process. 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
[2023-05-20] MEDS ORDERED: SCOPOLAMINE 1.5 MG (TRANSDERM-SCOP) PATCH TD ONE (12:30)
[2023-05-20] MEDS: fentaNYL INJ 100 MCG/2 ML AMP IV PRN ×2 (12:56→16:26)
[2023-05-20] MEDS: LORazepam INJ 2 MG/ML (ATIVAN) VIAL IV PRN ×2 (15:40→18:27)
[2023-05-20 16:07] VITALS: BP 171/80
[2023-05-20] MEDS ORDERED: hydrALAZINE (APESOLINE) 20 MG/ML VIAL IV PRN ×2 (17:15→20:45)
[2023-05-20] MEDS ORDERED: hydrALAZINE (APESOLINE) 20 MG/ML VIAL ONE (17:41)
[2023-05-20] MEDS ORDERED: fentaNYL INJ 100 MCG/2 ML AMP IV PRN ×2 (18:25→20:45)
[2023-05-20 19:26] VITALS: BP 175/74
[2023-05-20] MEDS ORDERED: fentaNYL INJ 100 MCG/2 ML AMP ONE (19:56)
[2023-05-20 23:30] VITALS: BP 156/77
[2023-05-21 03:32] VITALS: BP 125/65
[2023-05-21] MEDS: LACTATED RINGERS 1,000 ML IV SCH ×4 (04:12→14:17)
[2023-05-21] MEDS: CEFEPIME 1,000 MG/NS 50 ML IVPB IV SCH ×6 (05:57→20:01)
[2023-05-21 06:03] LABS: BASOPHILS % (AUTO) 0 % (0-10); EOSINOPHILS # (AUTO) 0.1 10^3/uL (0.0-0.3); EOSINOPHILS % (AUTO) 1 % (0-10); HEMATOCRIT 28 % (35-52); LYMPHOCYTES # (AUTO) 2.3 10^3/uL (1.0-4.0); LYMPHOCYTES % (AUTO) 24 % (12-44); MEAN CORPUSCULAR HEMOGLOBIN 30 pg (25-34); MEAN CORPUSCULAR HGB CONC 33 g/dL (32-36); MEAN CORPUSCULAR VOLUME 93 fL (80-99); MEAN PLATELET VOLUME 10.2 fL (9.0-12.2); MONOCYTES # (AUTO) 1.2 10^3/uL (0.0-1.0); MONOCYTES % (AUTO) 12 % (0-12); NEUTROPHILS # (AUTO) 6.1 10^3/uL (1.8-7.8); NEUTROPHILS % (AUTO) 63 % (42-75); PLATELET COUNT 377 10^3/uL (130-400); WHITE BLOOD COUNT 9.7 10^3/uL (4.3-11.0)
[2023-05-21 06:15] LABS: POTASSIUM 4.7 MMOL/L (3.6-5.0)
[2023-05-21 06:16] LABS: CALCIUM 9.5 MG/DL (8.5-10.1)
[2023-05-21 06:19] LABS: BILIRUBIN,TOTAL 0.5 MG/DL (0.1-1.0)
[2023-05-21 06:21] LABS: CREATININE SERUM 0.91 MG/DL (0.60-1.30)
[2023-05-21 07:04] VITALS: BP 138/74
[2023-05-21] MEDS: RT-ALBUTEROL SULF 2.5 MG/3 ML PRE-MIX VIAL INH SCH ×2 (08:17→19:16)
--- NOTE | 2023-05-21 08:42 | Physical Therapy Evaluation ---
PT Evaluation-General Medical Diagnosis Admission Date May 18, 2023 at 21:51 Medical Diagnosis: aspiration pneumonia/sepsis/dementia Onset Date: May 18, 2023 Therapy Diagnosis Therapy Diagnosis: severe debility/weakness Height/Weight Height (Feet): 5 Height (Inches): 4.00 Weight (Pounds): 117 Weight (Ounces): 8.0 Precautions Precautions/Isolations: Aspiration, Fall Prevention, Standard Precautions Referral Physician: Viktor Reason for Referral: Evaluation/Treatment Medical History Pertinent Medical History: Arthritis, CAD, Dementia, HTN Additional Medical History frequent falls/multiple fractures/non verbal/PEG but still eats per report Current History ER secondary to SOA Reviewed History: Yes Social History caregiver/lives with family Prior Prior Level of Function SCALE: Activities may be completed with or without assistive devices. 0-Asnfbdmrvr-mmtltwg completes the activity by him/herself with no assistance from a helper. 5-Set-up or Clean-up Assistance-helper sets up or cleans up; patient completes activity. [place] assists only prior to or following the activity. 4-Supervision or Touching Assistance-helper provides verbal cues and/or touching/steadying and/or contact guard assistance as patient completes activity. Assistance may be provided throughout the activity or intermittently. 3-Partial/Moderate Assistance-helper does LESS THAN HALF the effort. [place] lifts, holds or supports trunk or limbs, but provides less than half the effort. 2-Substantial/Maximal Assistance-helper does MORE THAN HALF the effort. [place] lifts or holds trunk or limbs and provides more than half the effort. 6-Qcjlthzzu-gfwhqe does ALL the effort. Patient does none of the effort to complete the activity. Or, the assistance of 2 or more helpers is required for the patient to complete the activity. If activity was not attempted, code reason: 7-Patient Refused. 9-Not Applicable-not attempted and the patient did not perform the activity before the current illness, exacerbation or injury. 10-Not Attempted due to Environmental Limitations-(lack of equipment, weather restraints, etc.). 88-Not Attempted due to Medical Conditions or Safety Concerns. unable to determine due to no family/caregiver present (but per report, caregiver reports patient is at baseline) PT Evaluation-Current Objective Patient Orientation: Non-Verbal/Aphasic, Listless Attachments: Jernigan Catheter, IV ROM/Strength ROM Lower Extremities bilateral LE WFL Strength Lower Extremities 2-/5 grossly bilateral LE Integumentary/Posture Bladder Incontinence: Jernigan Cath Posture kyphotic Neuromuscular (Tone, Coordination, Reflexes) severely diminished with all Sensory Vision: Unable to Assess Hearing: Unable to Assess Transfers Roll Left to Right (QC): 1 Sit to Lying (QC): 88 Lying to Sitting/Side of Bed(Q: 88 Assessment/Needs Patient writhing with any tactile stimuli. Patient does become increasingly agitated with any and all mobility. Attempted to reposition patient with patient moaning. PT will see patient for 2-4 visits to determine continues POC. Rehab Potential: Guarded PT Prison Goals Scale Mechanic Goals PT Scale Mechanic Goals Time Frame: Jun 02, 2023 Roll Left & Right (QC): 2 Sit to Lying (QC): 2 Lying-Sitting on Side/Bed(QC): 2 Sit to Stand (QC): 2 PT Plan Problem List Problem List: Activity Tolerance, Functional Strength, Safety, Transfer Treatment/Plan Treatment Plan: Continue Plan of Care Treatment Plan: Bed Mobility, Functional Activity Romario, Functional Strength, Therapeutic Exercise, Transfers Treatment Duration: Jun 02, 2023 Frequency: 5 times per week Estimated Hrs Per Day: .25 hour per day Time Time In: 801 Time Out: 811 DATE: May 21, 2023 Total Billed Treatment Time: 10 [facility] May 21, 2023 08:42
[2023-05-21] MEDS ORDERED: ACET325T49 PEG (09:09)
[2023-05-21] MEDS ORDERED: LACT10SO64 PEG (09:09)
[2023-05-21] MEDS ORDERED: PANT40SU PEG (09:18)
--- NOTE | 2023-05-21 10:06 | Occupational Therapy Eval ---
OT Evaluation-General/PLF Medical Diagnosis Admission Date May 18, 2023 at 21:51 Medical Diagnosis: aspiration pneumonia/sepsis/dementia Onset Date: May 18, 2023 Therapy Diagnosis Therapy Diagnosis: debility Height/Weight Height (Feet): 5 Height (Inches): 4.00 Weight (Pounds): 117 Weight (Ounces): 8.0 Precautions Precautions/Isolations: Aspiration, Fall Prevention, Standard Precautions Referral Physician: Viktor Medical History Pertinent Medical History: Arthritis, CAD, Dementia, HTN Additional Medical History Recurrent falls, fractures, NPO w/ PEG, has been eating at home and choking noted, Debility and Dementia, End of Life cycle. Family seeking SNF before determining Hospice Current History SOA, aspiration Social History Unable to obtain from Patient, patient does visually track therapist in room and responses to touch, temp and painful response when ROM is performed and position in bed performed. ADL-Prior Level of Function SCALE: Activities may be completed with or without assistive devices. 1-Bfgjlyevtq-rseoghg completes the activity by him/herself with no assistance from a helper. 5-Set-up or Clean-up Assistance-helper sets up or cleans up; patient completes activity. [place] assists only prior to or following the activity. 4-Supervision or Touching Assistance-helper provides verbal cues and/or touching/steadying and/or contact guard assistance as patient completes activity. Assistance may be provided throughout the activity or intermittently. 3-Partial/Moderate Assistance-helper does LESS THAN HALF the effort. [place] lifts, holds or supports trunk or limbs, but provides less than half the effort. 2-Substantial/Maximal Assistance-helper does MORE THAN HALF the effort. [place] lifts or holds trunk or limbs and provides more than half the effort. 6-Cedwldlmj-uqutlo does ALL the effort. Patient does none of the effort to complete the activity. Or, the assistance of 2 or more helpers is required for the patient to complete the activity. If activity was not attempted, code reason: 7-Patient Refused. 9-Not Applicable-not attempted and the patient did not perform the activity before the current illness, exacerbation or injury. 10-Not Attempted due to Environmental Limitations-(lack of equipment, weather restraints, etc.). 88-Not Attempted due to Medical Conditions or Safety Concerns. Self Care: Unknown Functional Cognition: Unknown (obtained form chart taht patient requires assistance) Drive Self: No OT Current Status Subjective Patient visually tracks movements and makes eye contact w/ therapist, is unable to verbally communicate at this time Mental Status/Objective Patient Orientation: Unable to Assess, Non-Verbal/Aphasic, Eyes Open Attachments: IV Current Glasses/Contacts: No Upper Extremity ROM resistive however Assisted mobility sustains to perform UE Dressing/ADLS at max to dependent level Upper Extremity Coordination impaired Upper Extremity Sensation na/unknown Upper Extremity Strength unable to assess ADL-Treatment Eating (QC): 88 (NPO has been recommended by [facility] episodes) Oral Hygiene (QC): 1 Shower/Bathe Self (QC): 1 Upper Body Dressing (QC): 1 Lower Body Dressing (QC): 1 On/Off Footwear (QC): 1 Toileting Hygiene (QC): 1 Education OT Patient Education: Correct positioning, Modified ADL techniques, Purpose of tx/functional activities, Reviewed precautions, Rehab process, Safety issues Teaching Recipient: Patient Response to Teaching: Unable to Return Demonstration, Unable to Comprehend OT Correctional Supervisor Lieutenant Goals Correctional Supervisor Lieutenant Goals 1=Demonstrate adherence to instructed precautions during ADL tasks. 2=Patient will verbalize/demonstrate understanding of assistive devices/modifications for ADL. 3=Patient will improve strength/tolerance for activity to enable patient to perform ADL's. OT Education/Plan Problem List/Assessment Assessment: No Skilled OT Needs ID'd Discharge Recommendations Plan/Recommendations: Discontinue OT Comment Communication between therapists concludes family continues to provide oral intake despite NPO precautions and recommendation and patient inactivity Treatment Plan/Plan of Care Patient would benefit from OT for education, treatment and training to promote independence in ADL's, mobility, safety and/or upper extremity function for ADL's. Plan of Care: OTHER (EVAL only) Treatment Duration: May 21, 2023 Frequency: 1 time per week Estimated Hrs Per Day: .25 hour per day Rehab Potential: Poor Time Start Time: 10:00 Stop Time: 10:20 DATE: May 21, 2023 Total Time Billed (hr/min): 20 Billed Treatment Time EVM 20 min PHANI CARVALHO OT May 21, 2023 10:06
[2023-05-21 11:02] VITALS: BP 142/79
--- NOTE | 2023-05-21 12:29 | ST Dysphagia Evaluation ---
Speech Evaluation-General Medical Diagnosis Aspiration Pneumonia/Sepsis/Dementia Onset Date: May 18, 2023 Therapy Diagnosis Therapy Diagnosis: Severe Oropharyngeal Dysphagia Precautions Precautions: Fall, Pressure Ulcer, Aspiration Precautions/Isolations: Aspiration, Fall Prevention, Standard Precautions Referral Referring Physician: Dr. Hoang Reason for Referral: Evaluation/Treatment Medical History Pertinent Medical History: Arthritis, CAD, Dementia, HTN The patient is well known to this clinician from previous skilled speech language pathology dysphagia evaluations and treatment sessions. Please find the below dates of modified barium swallow evaluations and results: - 04/04/2022: N.P.O. recommendation following Modified Barium Swallow - 08/22/2022: N.P.O. recommendation following Modified Barium Swallow - 09/12/2022: N.P.O. recommendation following Modified Barium Swallow - 11/03/2022: N.P.O. recommendation following Modified Barium Swallow - 12/20/2022: N.P.O. recommendation following Modified Barium Swallow - 01/16/2023: N.P.O. recommendation following outpatient skilled treatment session. The clinician has completed multiple modified barium swallow evaluations with the patient with a recommendation of N.P.O. Following each evaluation, the clinician has discussed extensively with the patient's present family member (son), present caregiver, or present treating speech pathologist (Charu), the importance of N.P.O. to eliminate aspiration and the patient's high risk for aspiration if P.O. is continued. Following the most recent modified barium swallow (December 2022) and skilled outpatient treatment session, the patient's caregiver stated the patient will continue P.O. regardless of aspiration risks for quality of life per family. Additionally, the clinician held a conversation and discussion with the patient's son after the most recent modified barium swallow and the son stated the family has decided to allow P.O. intake regardless of the patient's risks. Reviewed History: Yes Speech PLF/Current-Dysphagia Prior Level of Function Since August 2022, a recommendation of N.P.O has been provided to the patient. Regardless of the patient's aspiration risks, the patient and family decided towards continued P.O. intake with PEG tube supplemental support. Per patient's caregiver, the patient was recently consuming three meals per day and two snacks. Per patient's daughter, Emani, the patient has been N.P.O. since her most recent hospital discharge 05/15/2023 (re-admitted 05/18/23). The patient is N.P.O. at this time. Subjective The patient is lying in bed, eyes open, upon the clinician's entrance to her room. The patient does make eye contact when her name is spoken by the clinician and tracks the clinician as she moves around the bed. The patient was re- positioned upright in bed with assistance from the occupational therapist. The patient's son is present at bedside. Oral Motor Skills Dentition: Natural Ability to Follow Directions: Unable Oral Expression Ability: Severe Impairment Face Facial Symmetry: Symmetrical (Grossly symmetrical at rest. ) Oral-Facial Assessment Oral-Facial Dentition: Normal Labial Seal Description: Weak, Poor Coordination Volitional Dry Swallow: No Voluntary Cough: No Can Clear Throat Volitionally: No Productive Cough: No Productive Throat Clear: No Dysphagia Evaluation Consistencies Presented: Thin Liquid (One ice chip, one half teaspoon of water.), Pureed (One coated teaspoon of applesauce.) Oral Phase: Anterior Spillage, Absent Oral Transit Initially, a moist oral swab was attempted by the clinician. The patient does not open the oral cavity in attempts to manipulate the oral swab regardless of maximum clinician verbal encouragement and gentle tactile prompting. The patient minimally opens the oral cavity to accept an ice chip. Following maximum verbal prompting and encouragement, the patient continues oral holding. The patient opens the oral cavity and the ice chip displays complete anterior loss. One half teaspoon of water was accepted by the patient. Following oral holding, the patient transferred the bolus posteriorly. A coated teaspoon of applesauce was not manipulated or transferred in the oral cavity and was removed with a finger sweep by the clinician. The patient demonstrated an immediate, rigorous cough following the swallow of the half teaspoon of water. Additional pharyngeal swallows were not triggered. The patient required maximum verbal cueing for limited participation. The patient is not safe or appropriate for oral trials at this time and the evaluation was ended for patient safety. Dietary Recommendations: NPO Liquid Recommendations: NPO Dysphagia Evaluation Summary The clinician was contacted by the patient's daughter, Emani, for an update on the patient's plan of care and prognosis. The clinician reviewed the patient's past medical history of dysphagia as well as the evaluations and prior recommendations from this clinician. The patient's daughter was curious if the patient's swallowing "would return." The clinician stated it is unknown at this time however if the swallow does "return" it does not mean the swallowing function is "safe." As the patient has participated in eight months of skilled dysphagia therapy through a shelter facility and home health, the clinician does not feel a return to function will occur. The patient's daughter stated she was unaware "sepsis could be because of the aspiration." The clinician continued to state she (the clinician) was unaware of the etiology of the patient's sepsis however Emani stated "I didn't even know the two could be related." The patient provided the daughter with an update of the evaluation on this date. The clinician continued to state her professional recommendation would be N.P.O. for patient safety. Emani stated "it makes me look at quality of life differently. If what we are giving her could cause this, that's not quality of l oz." The clinician stated quality of life decisions and discussions should be between family members. The clinician answered all of the daughter's questions within the scope of speech pathology practice and deferred any medical questions to the treating physician. The clinician encouraged the daughter to contact her with any additional questions throughout the patient's stay. (21 minutes total) Recommendations: - Due to the patient's extensive medical history of aspiration (including silent), the clinician would recommend a modified barium swallow prior to advancing the diet at bedside. At this time, the patient is not appropriate for participation in a modified barium swallow as applesauce was removed with a finger sweep from the oral cavity following P.O. attempts by this clinician. If the patient becomes appropriate, a modified barium swallow will be scheduled. The clinician will continue daily assessments of the patient's progress and swallowing function. - N.P.O. - Frequent and excellent oral care to reduce the transfer of oral bacteria to the lungs should aspiration of secretions occur (suspected). - Speech pathology to re-assess the patient's oropharyngeal swallowing function daily. The recommendations were provided to the patient's son throughout the assessment. Extensive recommendations were provided to the patient's daughter following the evaluation. Speech Short Term Goals Short Term Goals Short Term Goals 1. The patient, staff, and family will follow safe swallowing strategies with 90% accuracy, independently. Time Frame-STG: Two Days. Speech Group Home Goals Ethanol Quality Leader Goals 1. The patient will tolerate the least restrictive diet consistency without s/s of suspected aspiration. Time Frame: Three Days. Speech-Plan Treatment Plan Speech Therapy Treatment Plan: Continue Plan of Care Treatment Duration: May 23, 2023 Frequency: 3 times per week Estimated Hrs Per Day: .25 hour per day Rehab Potential: Poor Pt/Family Agrees to Plan: Yes Safety Risks/Education Teaching Recipient: Patient, Family Teaching Methods: Discussion Response to Teaching: Verbalize Understanding (Family.) Education Topics Provided: - Results, Recommendations, Plan of Care Time Speech Therapy Time In: 10:10 Speech Therapy Time Out: 10:35 DATE: May 21, 2023 Total Billed Time: 25 Billed Treatment Time 1, RAIN ORTIZ [facility] ST May 21, 2023 12:29
--- NOTE | 2023-05-21 12:57 | Progress Note ---
Subjective Subjective/Events-last exam Son at bedside this AM. No new ON events. Patient resting comfortably. Unable to make needs known. Review of Systems Unable to ask due to non verbal Focused Exam Lactate Level 05/18/23 19:58: Lactic Acid Level 0.85 Objective Exam Last Set of Vital Signs Vital Signs Date Time Temp Pulse Resp B/P (MAP) Pulse Ox O2 Delivery O2 Flow Rate FiO2 05/21/23 12:21 92 05/21/23 11:02 36.6 18 142/79 (100) 96 Room Air 05/21/23 08:18 0.00 Capillary Refill : Less Than 3 Seconds I&O Intake and Output 05/21/23 00:00 Intake Total 200 ml Output Total 4075 ml Balance -3875 ml Intake Oral 0 ml Enteral Flush 200 ml Output Urine Total 4075 ml # Bowel Movements 1 General: Other (Resting comfortable, laying in position) Lungs: Other (diminished breath sounds, basilar crackles) Heart: Regular Rate Abdomen: Soft, No Tenderness Extremities: No Edema, No Tenderness/Swelling Results/Procedures Lab Laboratory Tests 05/21/23 05:53: White Blood Count 9.7, Red Blood Count 2.97L, Hemoglobin 9.0L, Hematocrit 28L, Mean Corpuscular Volume 93, Mean Corpuscular Hemoglobin 30, Mean Corpuscular Hemoglobin Concent 33, Red Cell Distribution Width 15.0H, Platelet Count 377, M jodi Platelet Volume 10.2, Immature Granulocyte % (Auto) 0, Neutrophils (%) (Auto) 63, Lymphocytes (%) (Auto) 24, Monocytes (%) (Auto) 12, Eosinophils (%) (Auto) 1, Basophils (%) (Auto) 0, Neutrophils # (Auto) 6.1, Lymphocytes # (Auto) 2.3, Monocytes # (Auto) 1.2H, Eosinophils # (Auto) 0.1, Basophils # (Auto) 0.0, Immature Granulocyte # (Auto) 0.0, Sodium Level 136, Potassium Level 4.7, Chloride Level 104, Carbon Dioxide Level 21, Anion Gap 11, Blood Urea Nitrogen 23H, Creatinine 0.91, Estimat Glomerular Filtration Rate 61, BUN/Creatinine Ratio 25, Glucose Level 93, Calcium Level 9.5, Corrected Calcium 10.3H, Total Bilirubin 0.5, Aspartate Amino Transf (AST/SGOT) 23, Alanine Aminotransferase (ALT/SGPT) 21, Alkaline Phosphatase 76, Total Protein 7.0, Albumin 3.0L Microbiology 05/18/23 Blood Culture - Preliminary, Resulted No growth Assessment/Plan Assessment/Plan (1) Aspiration pneumonia Status: Acute Assessment & Plan: 05/21: Oxygen wean as tolerated, discussed with family end stage dementia and this is a very poor prognostic factor, Family wishes to Skill patient but she is unable to participate in skilled therapy. Qualifiers: Qualified Codes: J69.0 - Pneumonitis due to inhalation of food and vomit (2) Acute respiratory failure with hypoxia Status: Acute (3) Severe protein-calorie malnutrition Status: Chronic Assessment & Plan: 05/21: PEG tube dependent, strict NPO (4) Dysphagia Status: Chronic Assessment & Plan: - PEG tube, NPO (5) Feeding by G-tube Status: Chronic (6) Cerebellar ataxia Status: Chronic ABISAI WHARTON MD May 21, 2023 12:56
[2023-05-21 15:14] VITALS: BP 135/61
[2023-05-21 19:53] VITALS: BP 112/63
[2023-05-21 23:48] VITALS: BP 147/69
[2023-05-22 03:07] VITALS: BP 152/66
[2023-05-22] MEDS: LACTATED RINGERS 1,000 ML IV SCH (04:38)
[2023-05-22] MEDS: CEFEPIME 1,000 MG/NS 50 ML IVPB IV SCH ×4 (04:38→13:48)
[2023-05-22 05:47] LABS: BASOPHILS % (AUTO) 0 % (0-10); EOSINOPHILS # (AUTO) 0.1 10^3/uL (0.0-0.3); EOSINOPHILS % (AUTO) 1 % (0-10); HEMATOCRIT 24 % (35-52); HEMOGLOBIN 7.9 g/dL (11.5-16.0); LYMPHOCYTES # (AUTO) 1.7 10^3/uL (1.0-4.0); LYMPHOCYTES % (AUTO) 21 % (12-44); MEAN CORPUSCULAR HEMOGLOBIN 30 pg (25-34); MEAN CORPUSCULAR HGB CONC 33 g/dL (32-36); MEAN CORPUSCULAR VOLUME 92 fL (80-99); MONOCYTES % (AUTO) 12 % (0-12); NEUTROPHILS # (AUTO) 5.4 10^3/uL (1.8-7.8); NEUTROPHILS % (AUTO) 66 % (42-75); PLATELET COUNT 332 10^3/uL (130-400); WHITE BLOOD COUNT 8.3 10^3/uL (4.3-11.0)
[2023-05-22 05:56] LABS: ALBUMIN 2.8 GM/DL (3.2-4.5)
[2023-05-22 05:57] LABS: POTASSIUM 4.2 MMOL/L (3.6-5.0)
[2023-05-22 05:58] LABS: CALCIUM 8.8 MG/DL (8.5-10.1)
[2023-05-22 05:59] LABS: TOTAL PROTEIN 6.3 GM/DL (6.4-8.2)
[2023-05-22 06:01] LABS: BILIRUBIN,TOTAL 0.4 MG/DL (0.1-1.0)
[2023-05-22 06:03] LABS: CREATININE SERUM 0.82 MG/DL (0.60-1.30)
[2023-05-22 07:09] VITALS: BP 135/65
[2023-05-22] MEDS: RT-ALBUTEROL SULF 2.5 MG/3 ML PRE-MIX VIAL INH SCH (07:16)
--- NOTE | 2023-05-22 10:24 | Speech Therapy Daily Note ---
Speech Daily Progress Note Subjective Date Seen by Provider: May 22, 2023 Time Seen by Provider: 09:52 The patient was lying in bed, eyes opened, upon entrance to her room by the clinician. The patient made eye contact and attempted verbalizations following a verbal greeting from the clinician. The patient appears with increased alertness on this date. The head of bed was elevated for safe swallowing. The patient's son is at bedside. During a conversation with the patient's daughter yesterday, Emani (daughter) stated she felt there was miscommunication regarding the patient's P.O. intake as it was reported to the admitting staff the patient "choked on something." Per Emani, the patient has been strict NPO since discharge on 05/15/2023. On today's date, the patient's son provided information to the patient regarding providing the patient with a banana following discharge therefore the patient's intake status is unknown to this clinician due to conflicting reports from caregivers. Objective Initially, the patient refused P.O. trials presented, turning her head and pursing her lips in response to tactile stimulation of the spoon on her lips. With maximum encouragement from the clinician and the patient's son, the patient accepted half teaspoons of water (two) with oral holding and immediate rigorous coughing following. The patient accepted four coated teaspoons of applesauce over an extended time period. Following the fourth teaspoon, rigorous coughing was displayed. The patient continuously attempted refusal of P.O. trials, physically turning her head away from the clinician and covering her lips with her neck pillow when offered. Due to the overt s/s of suspected aspiration with the limited P.O. trials, oral holding behaviors, and patient refusal, the session was ended for patient safety. The patient was unable to follow simple one-step commands for completion of dysphagia exercises regardless of maximum clinician cueing, including a direct model. Continue plan of care. Assessment Assessment Current Status: Poor Progress Treatment Plan Continue Plan of Care Speech Short Term Goals Short Term Goals Short Term Goals 1. The patient, staff, and family will follow safe swallowing strategies with 90% accuracy, independently. Time Frame-STG: Two Days. Speech [place] Machine Tender Goals Care Home Goals 1. The patient will tolerate the least restrictive diet consistency without s/s of suspected aspiration. Time Frame: Three Days. Speech-Plan Treatment Plan Speech Therapy Treatment Plan: Continue Plan of Care Treatment Duration: May 23, 2023 Frequency: 3 times per week Estimated Hrs Per Day: .25 hour per day Rehab Potential: Poor Pt/Family Agrees to Plan: Yes Safety Risks/Education Teaching Recipient: Patient, Family Teaching Methods: Discussion Response to Teaching: Unable to Comprehend Education Topics Provided: Results, Recommendations, Plan of Care Time Speech Therapy Time In: 09:52 Speech Therapy Time Out: 10:10 DATE: May 22, 2023 Total Billed Time: 18 Billed Treatment Time 1, BRANT SALDANA May 22, 2023 10:24
--- NOTE | 2023-05-22 10:45 | Discharge Summary ---
Discharge Summary Reconcile Patient Problems Problems Reviewed?: Yes Hospital Course Hospital Course Date of Admission: May 18, 2023 at 21:51 Admission Diagnosis : Family Physician/Provider: Ulises Mercado DO Date of Discharge: 05/22/23 Discharge Diagnosis: Aspiration PNA Acute Respiratory failure with hypoxia Severe PEM Dyshagia G-Tube dependent Cerebellar Ataxia Hospital Course: 87 yo F admitted with aspiration PNA with severe dysphagia and PEM. Patient has end stage dementia and now having associated aspiration PNA. Patient stabilized with antibiotics. Family is wishing to pursue SNF at this time but understand that this will likely reoccur and patient will continue to have decline as natural progression of disease. Patient with poor prognosis. Labs and Pending Lab Test: Laboratory Tests 05/22/23 05:22: White Blood Count 8.3, Red Blood Count 2.61L, Hemoglobin 7.9L, Hematocrit 24L, Mean Corpuscular Volume 92, Mean Corpuscular Hemoglobin 30, Mean Corpuscular Hemoglobin Concent 33, Red Cell Distribution Width 14.8H, Platelet Count 332, Mean Platelet Volume 10.0, Immature Granulocyte % (Auto) 0, Neutrophils (%) (Auto) 66, Lymphocytes (%) (Auto) 21, Monocytes (%) (Auto) 12, Eosinophils (%) (Auto) 1, Basophils (%) (Auto) 0, Neutrophils # (Auto) 5.4, Lymphocytes # (Auto) 1.7, Monocytes # (Auto) 1.0, Eosinophils # (Auto) 0.1, Basophils # (Auto) 0.0, Immature Granulocyte # (Auto) 0.0, Sodium Level 134L, Potassium Level 4.2, Chloride Level 106, Carbon Dioxide Level 18L, Anion Gap 10, Blood Urea Nitrogen 27H, Creatinine 0.82, Estimat Glomerular Filtration Rate 69, BUN/Creatinine Ratio 33, Glucose Level 114H, Calcium Level 8.8, Corrected Calcium 9.8, Total Bilirubin 0.4, Aspartate Amino Transf (AST/SGOT) 22, Alanine Aminotransferase (ALT/SGPT) 23, Alkaline Phosphatase 79, Total Protein 6.3L, Albumin 2.8L Microbiology 05/18/23 Blood Culture - Preliminary, Resulted No growth Home Meds Active Reported Protonix (Pantoprazole Sodium) 40 Mg Granpkt.dr 40 Mg PEG 0930,2130 RINSE WITH 10ML OF APPLE JUICE Constulose (Lactulose) 10 Gram/15 Ml Solution 15 Ml PEG BID PRN Acetaminophen 325 Mg Tablet 650 Mg PEG 0000,0800,1600 Vitamin D3 (Cholecalciferol (Vitamin D3)) 125 Mcg/Ml (5000 Unit/Ml) Drops 0.5 Ml PO HS Lidocaine 5% Patch (Lidocaine) 5 % Adh..patch 1 Each TP DAILY APPLY TO UPPER LEFT ARM Metamucil Packet (Psyllium Husk (with Sugar)) 3.4 Gram Powd.pack 3.4 Gm BID Ondansetron HCl 4 Mg Tablet 4 Mg Q8H PRN [id number] (Polyethylene Glycol 3350) 17 Gram/Dose Powder 17 Gm DAILY Polymyxin B-Tmp Eye Drops (Polymyxin B Sulf/Trimethoprim) 10,000 Unit-1 Mg/Ml Drops 1 Drop OU TID Ocusoft Lid Scrub (Eyelid Cleanser Combination #5) 1 Each Med..pad 1 Each TP DAILY Vitamin C (Ascorbic Acid) 1,000 Mg Tablet 1,000 Mg DAILY Allopurinol 100 Mg Tablet 100 Mg DAILY Diclofenac Sodium 1 % Gel..gram. 2 Gm TOP QID PRN APPLY TO AFFECTED AREA Refresh Tears (Carboxymethylcellulose Sodium) 0.5 % Drops 1 Drop OU QID Aspirin 81 Mg Tab.chew 81 Mg HS Amlodipine Besylate 5 Mg Tablet 5 Mg DAILY HOLD IF SBP <100 OR PULSE <60 Skilled NF Admit to: [facility] Certification (SNF) I certify that SNF services are required to be given on an inpatient basis because of the above named patient's need for retirement care on a continuing basis for the conditions(s) for which he/she was receiving inpatient hospital services prior to his/her transfer to the SNF. [facility] Facility Order: Nursing Services, Heel Room Supervisor-Evaluate & Treat, Physical Therapy-Evaluate & Treat, Speech Language-Evaluate & Treat Oxygen Delivery Method: Room Air Discharge Diet: Other Diet (NPO) Daily Activity as Tolerated: Yes Resuscitation Status: Do Not Resuscitate New & Resume Previous Orders Jevity 1.5, 4 cans daily Flush 100 mL after each feed Flush 150 between each feed Abisai Anne May 22, 2023 10:38 Discharge Physical Exam General: Other (Awake, Disoriented x 3, unable to make needs known) Lungs: Other (Basilar crackles, normal work of breathing at discharge) Heart: Regular Rate Abdomen: Soft, No Tenderness Extremities: No Edema, No Tenderness/Swelling ABISAI ANNE MD May 22, 2023 10:45
[2023-05-22] MEDS ORDERED: AMOX1TAB11 GT (10:48)
[2023-05-22 11:20] VITALS: BP 138/68
[2023-05-22 14:27] VITALS: BP 138/68
[2023-05-23] MEDS ORDERED: SCOPOLAMINE PATCH REMOVAL TP ONE (12:30)
== END 2023-05-22 14:00 | DRG 177 ==
LOC: EDUNIT# 19:46 → ER 19:48 → 4TH 21:51
PROVIDERS: ADMIT Family Medicine; ATTEND Family Medicine
DX: J69.0 Pneumonitis due to inhalation of food and vomit (principal); E43 Unspecified severe protein-calorie malnutrition; J96.01 Acute respiratory failure with hypoxia; G11.9 Hereditary ataxia, unspecified; Z79.82 Long term (current) use of aspirin; F03.90 Unspecified dementia, unspecified severity, without behavioral disturbance, psychotic disturbance, mood disturbance, and anxiety; I48.91 Unspecified atrial fibrillation; Z66 Do not resuscitate; I25.10 Atherosclerotic heart disease of native coronary artery without angina pectoris; I10 Essential (primary) hypertension; E03.9 Hypothyroidism, unspecified; E78.00 Pure hypercholesterolemia, unspecified; K21.9 Gastro-esophageal reflux disease without esophagitis; M10.9 Gout, unspecified; F32.A Depression, unspecified; Z93.1 Gastrostomy status; R53.81 Other malaise; Z68.20 Body mass index [BMI] 20.0-20.9, adult; Z20.822 Contact with and (suspected) exposure to COVID-19
CPT/HCPCS: 36415; 51702; 71045; 80053; 81000; 83605; 83735; 83880; 84484; 85025; 87040; 87636; 93005; 93041; 94640; 94760; 96361; 96365

== ENCOUNTER 2023-08-31 18:04 | Inpatient (IN) | payer MEDICARE, MEDICAID ==
[~2023-08-31] VITALS: Ht 167 cm; Wt 56.8 kg
[~2023-08-31 18:04] MED LIST changes: +ACET325T49 PEG; -ALLO100T; +ALLO100T PEG; -AMLO-250; +AMLO-250 PEG; +AMOX1TAB11 GT; -ASCO100024; +ASCO100024 PEG; -ASPI-999; +ASPI-999 PEG; -DICL100G13 TOP; +DICL100G60 TOP; +LACT10SO64 PEG; +NEBI5TAB2 PO; -ONDA-105; +ONDA-105 PEG; +PANT40SU PEG; -POLY238P32; +POLY238P32 PEG; -PSYL1PAC10; +PSYL1PAC10 PEG; +[UNRECOGNIZED DRUG - CODE] PEG; -[UNRECOGNIZED DRUG - CODE] PO
[2023-08-31] MEDS ORDERED: ACETAMINOPHEN 500 MG TABLET FEEDING ONE (18:15)
[2023-08-31] MEDS ORDERED: PANTOPRAZOLE INJECTION 40 MG VIAL IV ONE (18:15)
[2023-08-31] MEDS ORDERED: ONDANSETRON INJECTION 4 MG/2 ML (SDV) IVP ONE (18:15)
[2023-08-31] MEDS ORDERED: NS IV 1000 ML 1,000 ML IV SCH ×2 (18:15)
[2023-08-31] MEDS ORDERED: PIPERACILLIN/Tazobactam 4.5 GM in NS (IVPB) 100 ML 100 ML IV ONE (18:15)
--- NOTE | 2023-08-31 18:17 | ED General ---
General Chief Complaint: Respiratory Problems Stated Complaint: ELEVATED WHITE BLOOD COUNT Nursing Triage Note: PT ARRIVED PER EMS, PT IS FROM [facility]. PT HAS HAD SOA TODAY, PT HAS PEG TUBE AND WHEN RESIDUAL CHECKED, PT HAS COFFEE GROUND RESULTS. PT HAS HAD LOW GRADE TEMP TODAY. PT IS NON VERBAL. PT ALSO HAD WBC OF 22,000 Source of Information: EMS, Correction Records Exam Limitations: Other (PT IS NON-VERBAL) History of Present Illness Date Seen by Provider: Aug 31, 2023 Time Seen by Provider: 18:08 Initial Comments PT ARRIVES VIA EMS FROM [facility] PT IS NON-VERBAL PT HAS FEEDING TUBE AND HAD SOME COFFEE-GROUND STOMACH CONTENTS TODAY PT HAS BEEN SHORT OF BREATH TODAY--PT ARRIVES ON 4L O2/NC EMS REPORT TEMP OF 103 PT HAD LAB DONE TODAY AND WBC WAS 22,000, SO SENT HERE NO OTHER INFORMATION IS OBTAINABLE AT THIS TIME PT IS DNR. PCP: DR. CATALAN Allergies and Home Medications Allergies Coded Allergies: melatonin (Verified Allergy, Unknown, 03/12/22) nitrofurantoin (Verified Allergy, Unknown, 05/21/23) quetiapine (Verified Adverse Reaction, Unknown, CONFUSION, 08/25/22) confusion Patient Home Medication List Acetaminophen (Acetaminophen) 325 Mg Tablet, 650 MG PEG 0000,0800,1600, (Report ed) Entered as Reported by: JANAK RAHMAN on 05/21/23 0909 Allopurinol (Allopurinol) 100 Mg Tablet, 100 MG DAILY, (Reported) Entered as Reported by: JANAK RAHMAN on 08/22/22 0939 Amlodipine Besylate (Amlodipine Besylate) 5 Mg Tablet, 5 MG DAILY, (Reported) Entered as Reported by: JANAK RAHMAN on 08/22/22 0939 Amoxicillin/Potassium Clav (Amox Tr-K Clv 500-125 mg Tab) 500 Mg-125 Mg Tablet, 1 EACH GT BID Prescribed by: ABISAI WHARTON on 05/22/23 1048 Ascorbic Acid (Vitamin C) 1,000 Mg Tablet, 1,000 MG DAILY, (Reported) Entered as Reported by: JANAK RAHMAN on 08/22/22 0939 Aspirin (Aspirin) 81 Mg Tab.chew, 81 MG HS, (Reported) Entered as Reported by: JANAK RAHMAN on 08/22/22 0939 Carboxymethylcellulose Sodium (Refresh Tears) 0.5 % Drops, 1 DROP OU QID, (Reported) Entered as Reported by: JANAK RAHMAN on 08/22/22 0939 Cholecalciferol (Vitamin D3) (Vitamin D3) 125 Mcg/Ml (5000 Unit/Ml) Drops, 0.5 ML PO HS, (Reported) Entered as Reported by: JANAK RAHMAN on 05/04/23 1356 Eyelid Cleanser Combination #5 (Ocusoft Lid Scrub) 1 Each Med..pad, 1 EACH TP DAILY, (Reported) Entered as Reported by: JANAK RAHMAN on 08/22/22 0939 Lactulose (Constulose) 10 Gram/15 Ml Solution, 15 ML PEG BID PRN for CONSTIPATION-3RD LINE, (Reported) Entered as Reported by: JANAK RAHMAN on 05/21/23 0909 Lidocaine (Lidocaine 5% Patch) 5 % Adh..patch, 1 EACH TP DAILY, (Reported) Entered as Reported by: JANAK RAHMAN on 05/04/23 1354 Ondansetron HCl (Ondansetron HCl) 4 Mg Tablet, 4 MG Q8H PRN for NAUSEA/VOMITING- 1ST LINE, (Reported) Entered as Reported by: JANAK RAHMAN on 05/04/23 135 Pantoprazole Sodium (Protonix) 40 Mg Granpkt.dr, 40 MG PEG 929,2129, (Reported) Entered as Reported by: JANAK RAHMAN on 05/21/23 0918 Polyethylene Glycol 3350 ([id number]) 17 Gram/Dose Powder, 17 GM DAILY, (Reported) Entered as Reported by: JANAK RAHMAN on 05/04/23 135 Psyllium Husk (with Sugar) (Metamucil Packet) 3.4 Gram Powd.pack, 3.4 GM BID, (Reported) Entered as Reported by: JANAK RAHMAN on 05/04/23 135 Past Kozedbh-Yubfms-Oagvrz Hx Immunizations Up To Date Tetanus Booster (TDap): Unknown PED Vaccines UTD: No First/Initial COVID19 Vaccinat: YES Second COVID19 Vaccination Theo: YES Third COVID19 Vaccination Date: YES Seasonal Allergies Seasonal Allergies: No Past Medical History Surgery/Hospitalization HX: DEMENTIA, A-FIB, CAD, HTN, HYPOTHYROIDISM, HYPERLIPIDEMIA FREQUENT FALLS SUBDURAL HEMATOMA 02/2022 DUE TO FALL; G TUBE Surgeries: Yes (FEEDING TUBE) Abdominal Respiratory: Yes (ASPIRATION PNEUMONIA) Pneumonia Currently Using CPAP: No Currently Using BIPAP: No Cardiac: Yes (SEES DR. MOTTA UNSURE WHY) Atrial Fibrillation, Coronary Artery Disease, High Cholesterol, Hypertension Neurological: Yes (SUBDURAL HEMATOMA 02/2022; SEIZURE 04/14/23) Dementia, Traumatic Brain Injury Reproductive Disorders: No Female Reproductive Disorders: Denies RN SURGICAL PCU History: Menopausal Sexually Transmitted Disease: No HIV/AIDS: No Genitourinary: Yes UTI-Chronic Gastrointestinal: Yes (ASPIRATION) Gastroesophageal Reflux Musculoskeletal: Yes (POOR AMBULATION, FREQUENT FALLS; MULTIPLE FRACTURES) Fractures, Gout Endocrine: Yes Hypothyroidsim HEENT: Yes Cataract Loss of Vision: Denies Hearing Impairment: Hard of Hearing Cancer: No Psychosocial: Yes Depression Integumentary: No Blood Disorders: No Adverse Reaction/Blood Tranf: No Family Medical History Dementia G8 SISTER Diabetes mellitus 19 FATHER No Pertinent Family Hx LEFT HUMERUS FRACTURE PELVIS FRACTURES/PUBIC RAMI FRACTURES RIB FRACTURES PT HAD WITNESSED SEIZURE ACTIVITY 04/13/23 AND WAS STARTED ON KEPPRA HERE IN ER. Physical Exam Vital Signs Vital Signs - First Documented 08/31/23 08/31/23 18:05 18:14 Temp 40.3 Pulse 107 Resp 18 B/P (MAP) 126/80 (95) Pulse Ox 92 O2 Delivery Nasal Cannula O2 Flow Rate 4.00 Capillary Refill : Less Than 3 Seconds Height, Weight, BMI Height: 5'4.00" Weight: 117lbs. 8.0oz. [id number]; 16.00 BMI Method:Stated Gastrointestinal: Other (FEEDING TUBE --TUBING IS BROKEN OFF) Genital/Rectal: Other (MUSE WITHOUT ANY URINE IN BAG OR IN TUBING) Focused Exam Lactate Level 08/31/23 18:10: Lactic Acid Level 1.76 Lactic Acid Level Laboratory Tests Test 08/31/23 18:10 Lactic Acid Level 1.76 MMOL/L (0.50-2.00) Procedures/Interventions Suture Size: 5-0 Progress/Results/Core Measures Suspected Sepsis SIRS Temperature: Pulse: 107 Respiratory Rate: 18 Laboratory Tests 08/31/23 18:10: White Blood Count 22.1H Blood Pressure 126 /80 Mean: 95 08/31/23 18:10: Lactic Acid Level 1.76 Laboratory Tests 08/31/23 18:10: Creatinine 1.38H, INR Comment 1.2, Platelet Count 306, Total Bilirubin 0.5 Results/Orders Lab Results Laboratory Tests Test 08/31/23 18:10 08/31/23 18:39 08/31/23 19:36 Range/Units White Blood Count 22.1 H 4.3-11.0 10^3/uL Red Blood Count 3.54 L 3.80-5.11 10^6/uL Hemoglobin 10.5 L 11.5-16.0 g/dL Hematocrit 32 L 35-52 % Mean Corpuscular Volume 91 80-99 fL Mean Corpuscular Hemoglobin 30 25-34 pg Mean Corpuscular Hemoglobin Concent 33 32-36 g/dL Red Cell Distribution Width 17.0 H 10.0-14.5 % Platelet Count 306 130-400 10^3/uL Mean Platelet Volume 9.5 9.0-12.2 fL Immature Granulocyte % (Auto) 1 % Neutrophils (%) (Auto) 85 H 42-75 % Lymphocytes (%) (Auto) 8 L 12-44 % Monocytes (%) (Auto) 7 0-12 % Eosinophils (%) (Auto) 0 0-10 % Basophils (%) (Auto) 0 0-10 % Neutrophils # (Auto) 18.7 H 1.8-7.8 10^3/uL Lymphocytes # (Auto) 1.8 1.0-4.0 10^3/uL Monocytes # (Auto) 1.5 H 0.0-1.0 10^3/uL Eosinophils # (Auto) 0.0 0.0-0.3 10^3/uL Basophils # (Auto) 0.0 0.0-0.1 10^3/uL Immature Granulocyte # (Auto) 0.1 0.0-0.1 10^3/uL Neutrophils % (Manual) 86 % Lymphocytes % (Manual) 8 % Monocytes % (Manual) 4 % Band Neutrophils 2 % Anisocytosis SLIGHT Prothrombin Time 15.4 H 12.2-14.7 SEC INR Comment 1.2 0.8-1.4 Activated Partial Thromboplast Time 32 24-35 SEC Sodium Level 135 135-145 MMOL/L Potassium Level 4.7 3.6-5.0 MMOL/L Chloride Level 96 L 98-107 MMOL/L Carbon Dioxide Level 26 21-32 MMOL/L Anion Gap 13 5-14 MMOL/L Blood Urea Nitrogen 44 H 7-18 MG/DL Creatinine 1.38 H 0.60-1.30 MG/DL Estimat Glomerular Filtration Rate 37 BUN/Creatinine Ratio 32 Glucose Level 137 H 70-105 MG/DL Lactic Acid Level 1.76 0.50-2.00 MMOL/L Calcium Level 10.6 H 8.5-10.1 MG/DL Corrected Calcium 10.9 H 8.5-10.1 MG/DL Magnesium Level 1.8 1.6-2.4 MG/DL Total Bilirubin 0.5 0.1-1.0 MG/DL Aspartate Amino Transf (AST/SGOT) 21 5-34 U/L Alanine Aminotransferase (ALT/SGPT) 19 0-55 U/L Alkaline Phosphatase 84 40-136 U/L Total Protein 7.5 6.4-8.2 GM/DL Albumin 3.6 3.2-4.5 GM/DL Amylase Level 42 25-125 U/L Lipase 6 L 8-78 U/L Influenza Type A (RT-PCR) Not Detected Not Detecte Influenza Type B (RT-PCR) Not Detected Not Detecte SARS-CoV-2 RNA (RT-PCR) Not Detected Not Detecte Urine Color YELLOW Urine Clarity CLOUDY Urine pH 7.0 5-9 Urine Specific [place] 1.025 H 1.016-1.022 Urine Protein 3+ H NEGATIVE Urine Glucose (UA) NEGATIVE NEGATIVE Urine Ketones NEGATIVE NEGATIVE Urine Nitrite NEGATIVE NEGATIVE Urine Bilirubin NEGATIVE NEGATIVE Urine Urobilinogen 0.2 < = 1.0 MG/DL Urine Leukocyte Esterase 3+ H NEGATIVE Urine RBC (Auto) 2+ H NEGATIVE Urine RBC 50-100 H /HPF Urine WBC TNTC H /HPF Urine Squamous Epithelial Cells NONE /HPF Urine Crystals NONE /LPF Urine Bacteria LARGE H /HPF Urine Casts NONE /LPF Urine Mucus NEGATIVE /LPF Urine Culture Indicated CULTURE PENDING My Orders Orders - KAREY GAY DO Ed Iv/Invasive Line Start (08/31/23 18:08) O2 (08/31/23 18:08) Monitor-Rhythm Ecg Trace Only (08/31/23 18:08) Amylase (08/31/23 18:08) Comprehensive Metabolic Panel (08/31/23 18:08) Lipase (08/31/23 18:08) Magnesium (08/31/23 18:08) Ua Culture If Indicated (08/31/23 18:08) Ed Iv/Invasive Line Start (08/31/23 18:08) Ns Iv 1000 Ml (Ns Iv 1000 Ml) (08/31/23 18:15) Ondansetron Injection (Ondansetron Inj (08/31/23 18:15) Pantoprazole Injection (Pantoprazole Inj (08/31/23 18:15) Cbc And Automated Diff (08/31/23 18:12) Blood Culture (08/31/23 18:12) Sputum Culture (08/31/23 18:12) Urine Culture (08/31/23 18:12) Protime With Inr (08/31/23 18:12) Chest 1 View, Ap/Pa Only (08/31/23 18:12) Acetaminophen Tablet (Acetaminophen Ta (08/31/23 18:15) Ed Iv/Invasive Line Start (08/31/23 18:12) Ed Iv/Invasive Line Start (08/31/23 18:12) Vital Signs Adult Sepsis Patie Q15M (08/31/23 18:12) O2 (08/31/23 18:12) Remove Rings In Anticipation O (08/31/23 18:12) Lactic Acid Analyzer (08/31/23 18:12) Ns Iv 1000 Ml (Ns Iv 1000 Ml) (08/31/23 18:15) Piperacillin/Tazobactam (Piperacillin/Ta (08/31/23 18:15) Ct Chest/Abdomen/Pelvis W (08/31/23 18:18) Manual Differential (08/31/23 18:10) Covid 19 Inhouse Test (08/31/23 18:34) Influenza A And B By Pcr (08/31/23 18:34) Partial Thromboplastin Time (08/31/23 18:58) Ed Iv/Invasive Line Start (08/31/23 19:17) Lactated Ringers 1,000 Ml (Lactated Ring (08/31/23 19:30) Iohexol Injection (Omnipaque 350 Mg/Ml 1 (08/31/23 19:45) Ns (Ivpb) 100 Ml (Sodium Chloride 0.9% 1 (08/31/23 19:45) Medications Given in ED Current Medications Medications Dose Ordered Sig/Kayla Route Start Time Stop Time Status Last Admin Dose Admin Acetaminophen 1,000 mg ONCE ONCE FEEDING 08/31/23 18:15 08/31/23 18:16 DC 08/31/23 18:25 1,000 MG Iohexol 100 ml ONCE ONCE IV 08/31/23 19:45 08/31/23 19:46 DC 08/31/23 19:38 40 ML Lactated Ringer's 1,000 ml @ 0 mls/hr Q0M ONCE IV 08/31/23 19:30 08/31/23 19:31 DC 08/31/23 19:37 0 MLS/HR Ondansetron HCl 4 mg ONCE ONCE IVP 08/31/23 18:15 08/31/23 18:16 DC 08/31/23 18:19 4 MG Pantoprazole 80 mg ONCE ONCE IV 08/31/23 18:15 08/31/23 18:16 DC 08/31/23 18:19 80 MG Piperacillin Sod/ Tazobactam Sod 4.5 gm/Sodium Chloride 100 ml @ 200 mls/hr ONCE ONCE IV 08/31/23 18:15 08/31/23 18:44 DC 08/31/23 18:25 200 MLS/HR Sodium Chloride 100 ml ONCE ONCE IV 08/31/23 19:45 08/31/23 19:46 DC 08/31/23 19:38 70 ML Vital Signs/I&O 08/31/23 08/31/23 08/31/23 18:05 18:05 18:14 Temp 40.3 36.9 Pulse 107 Resp 18 B/P (MAP) 126/80 (95) Pulse Ox 92 O2 Delivery Nasal Cannula Nasal Cannula O2 Flow Rate 4.00 4.00 Capillary Refill : Less Than 3 Seconds Blood Pressure Mean: 95 Progress Note : Progress Note VTIALS ON ARRIVAL: TEMP 40.3=104.6, HR 107, RR 18, BP 126/80, O2 SAT 92% ON 4L/NC SEPSIS PROTOCOL INITIATED MUSE CATHETER REMOVED AND REPLACED WITH IMMEDIATE RETURN OF LARGE AMOUNT OF URINE. MUSE TUBING CLOGGED WITH DEBRIS FEEDING TUBE--EXTERNAL TUBING IS BROKEN OFF AND HAS BEEN TIED IN A KNOT PRIOR TO PT'S ARRIVAL TO ER THERE IS BLACK DEBRIS AROUND THE STOMA GIVEN: -IV FLUIDS -ZOFRAN -PROTONIX -ZOSYN -TYLENOL FOR FEVER LABS: -CBC WITH WBC 22.1, HGB 10.5, PLT 306,000 -CMP--ELECTROLYTES NORMAL, BUN 44, CR 1.38, GLU 137, LFT'S NORMAL -MG NORMAL -AMYLASE/LIPASE NORMAL -PT/PTT/INR PT 15.4, OTHERWISE NORMAL -LACTIC ACID 1.76 -UA -COVID/FLU NEGATIVE Diagnostic Imaging Comments CXR--PER RADIOLOGIST REPORT AT 1957 CORRELATION STUDY: 05/19/2023. FINDINGS: Heart size stable. Vasculature is increased from prior. Perihilar, basilar and right upper lobe opacities are present, appearing changed from prior. Suspect left pleural effusion. Ununited left proximal humerus fracture, unchanged. IMPRESSION: 1. Heart size stable with vasculature appearing increased suspect for at least component of edema. 2. Scattered bilateral pulmonary opacities. May reflect asymmetric areas of edema with infiltrate or even aspiration not excluded. Most pronounced at the left lung base. Dictated on workstation # [id number] CT CHEST/ABDOMEN/PELVIS--PER RADIOLOGIST REPORT AT 2030 FINDINGS: CT CHEST: The heart is mildly large. There is mild pericardial fluid without rj effusion seen. There is calcific atherosclerosis of the aorta. The ascending aorta is mildly ectatic. There is a small hiatal hernia. There is coronary atherosclerosis. No axillary adenopathy is seen. There is airspace consolidation in the left upper lobe and the left lower lobe at the lung base. This is new since the prior study. There is motion artifact throughout the lungs with dependent atelectasis. No central endobronchial lesion is seen. No acute osseous abnormality is seen. There is an old nonunited fracture of the proximal left humerus. CT ABDOMEN/PELVIS: The liver demonstrates no focal lesion. There is motion artifact. There is a calcified granuloma in the spleen. The pancreas is mildly atrophic but otherwise unremarkable. The adrenal glands appear normal. The kidneys are mildly atrophic with no hydronephrosis or enhancing lesion seen. The bladder is mildly thickened with a Muse catheter in place. There is a PEG tube in the stomach. No bowel distention is seen. The appendix appears to be normal. The colon is unremarkable. No contrast extravasation is seen in the stomach. No free fluid or free air is seen. No acute osseous abnormality is seen. There are old posttraumatic deformities in the pelvis. IMPRESSION: 1. Consolidation in the left lung, concerning for infection. 2. Mild thickening of the urinary bladder, please correlate clinically for findings of infection. No other acute abnormality is seen in the abdomen or pelvis. Reviewed: Reviewed by Me Departure Impression Primary Impression: Sepsis Additional Impressions: Pneumonia POSSIBLE GI BLEED BROKEN FEEDING TUBE Dementia Departure-Patient Inst. Referrals: JANAK PRAKASH DO (PCP/Family) Primary Care Physician KAREY GAY DO Aug 31, 2023 18:17
[2023-08-31 18:31] LABS: BASOPHILS % (AUTO) 0 % (0-10); EOSINOPHILS % (AUTO) 0 % (0-10); HEMATOCRIT 32 % (35-52); HEMOGLOBIN 10.5 g/dL (11.5-16.0); LYMPHOCYTES # (AUTO) 1.8 10^3/uL (1.0-4.0); LYMPHOCYTES % (AUTO) 8 % (12-44); MEAN CORPUSCULAR HEMOGLOBIN 30 pg (25-34); MEAN CORPUSCULAR HGB CONC 33 g/dL (32-36); MEAN CORPUSCULAR VOLUME 91 fL (80-99); MEAN PLATELET VOLUME 9.5 fL (9.0-12.2); MONOCYTES # (AUTO) 1.5 10^3/uL (0.0-1.0); MONOCYTES % (AUTO) 7 % (0-12); NEUTROPHILS # (AUTO) 18.7 10^3/uL (1.8-7.8); NEUTROPHILS % (AUTO) 85 % (42-75); PLATELET COUNT 306 10^3/uL (130-400); WHITE BLOOD COUNT 22.1 10^3/uL (4.3-11.0)
[2023-08-31 18:45] LABS: INR 1.2 (0.8-1.4); PROTHROMBIN TIME PATIENT 15.4 SEC (12.2-14.7)
[2023-08-31 18:54] LABS: ALBUMIN 3.6 GM/DL (3.2-4.5); BILIRUBIN,TOTAL 0.5 MG/DL (0.1-1.0); CALCIUM 10.6 MG/DL (8.5-10.1); CREATININE SERUM 1.38 MG/DL (0.60-1.30); MAGNESIUM 1.8 MG/DL (1.6-2.4); POTASSIUM 4.7 MMOL/L (3.6-5.0); TOTAL PROTEIN 7.5 GM/DL (6.4-8.2)
[2023-08-31 18:59] LABS: BAND NEUTROPHILS 2 %; NEUTROPHILS % (MANUAL) 86 %
[2023-08-31 19:00] LABS: ANISOCYTOSIS SLIGHT; LYMPHOCYTES % (MANUAL) 8 %; MONOCYTES % (MANUAL) 4 %
[2023-08-31] MEDS ORDERED: LACTATED RINGERS 1,000 ML 1,000 ML IV ONE (19:30)
--- NOTE | 2023-08-31 19:37 | Diagnostic Imaging Report ---
INDICATION: Shortness of air, fever. TECHNIQUE: Single view chest 7:09 PM. CORRELATION STUDY: 05/19/2023. FINDINGS: Heart size stable. Vasculature is increased from prior. Perihilar, basilar and right upper lobe opacities are present, appearing changed from prior. Suspect left pleural effusion. Ununited left proximal humerus fracture, unchanged. IMPRESSION: 1. Heart size stable with vasculature appearing increased suspect for at least component of edema. 2. Scattered bilateral pulmonary opacities. May reflect asymmetric areas of edema with infiltrate or even aspiration not excluded. Most pronounced at the left lung base. Dictated by: Dictated on workstation # [id number]
[2023-08-31] MEDS ORDERED: IOHEXOL 350 MG/ML 100 ML (OMNIPAQUE 350) VIAL IV ONE (19:45)
[2023-08-31] MEDS ORDERED: NS 100 ML (IVPB) BAG IV ONE (19:45)
[2023-08-31 19:58] LABS: BILIRUBIN,URINE NEGATIVE (NEGATIVE); CLARITY,URINE CLOUDY; COLOR,URINE YELLOW; GLUCOSE, URINE (UA) NEGATIVE (NEGATIVE); KETONES,URINE NEGATIVE (NEGATIVE); LEUKOCYTE ESTERASE ,URINE 3+ (NEGATIVE); NITRITE,URINE NEGATIVE (NEGATIVE); PROTEIN,URINE 3+ (NEGATIVE); RBC,URINE 50-100 /HPF
[2023-08-31 19:59] LABS: BACTERIA,URINE LARGE /HPF; WBC,URINE TNTC /HPF
--- NOTE | 2023-08-31 20:16 | Diagnostic Imaging Report ---
PROCEDURE: CT chest, abdomen, and pelvis with contrast. TECHNIQUE: Multiple contiguous axial images were obtained through the chest, abdomen, and pelvis after the administration of intravenous contrast. Auto Exposure Controls were utilized during the CT exam to meet ALARA standards for radiation dose reduction. INDICATION: Dyspnea, hypoxia, coffee-ground contents of feeding tube, GI bleed. COMPARISON: 02/25/2023. FINDINGS: CT CHEST: The heart is mildly large. There is mild pericardial fluid without rj effusion seen. There is calcific atherosclerosis of the aorta. The ascending aorta is mildly ectatic. There is a small hiatal hernia. There is coronary atherosclerosis. No axillary adenopathy is seen. There is airspace consolidation in the left upper lobe and the left lower lobe at the lung base. This is new since the prior study. There is motion artifact throughout the lungs with dependent atelectasis. No central endobronchial lesion is seen. No acute osseous abnormality is seen. There is an old nonunited fracture of the proximal left humerus. CT ABDOMEN/PELVIS: The liver demonstrates no focal lesion. There is motion artifact. There is a calcified granuloma in the spleen. The pancreas is mildly atrophic but otherwise unremarkable. The adrenal glands appear normal. The kidneys are mildly atrophic with no hydronephrosis or enhancing lesion seen. The bladder is mildly thickened with a Jernigan catheter in place. There is a PEG tube in the stomach. No bowel distention is seen. The appendix appears to be normal. The colon is unremarkable. No contrast extravasation is seen in the stomach. No free fluid or free air is seen. No acute osseous abnormality is seen. There are old posttraumatic deformities in the pelvis. IMPRESSION: 1. Consolidation in the left lung, concerning for infection. 2. Mild thickening of the urinary bladder, please correlate clinically for findings of infection. No other acute abnormality is seen in the abdomen or pelvis. Dictated by: Dictated on workstation # [id number]
[2023-08-31] MEDS ORDERED: NS IV ONE (22:00)
[2023-08-31] MEDS ORDERED: ONDANSETRON INJECTION 4 MG/2 ML (SDV) IV PRN (22:15)
[2023-08-31] MEDS ORDERED: ACETAMINOPHEN 650 MG SUPPOSITORY PR PRN (22:15)
[2023-08-31] MEDS: LACTATED RINGERS 1,000 ML 1,000 ML IV SCH (23:16)
[2023-08-31] MEDS: PIPERACILLIN/Tazobactam 4.5 GM in NS (IVPB) 100 ML 100 ML IV SCH (23:17)
[2023-09-01] VITALS (9 sets, daily range): BP systolic 120–167; BP diastolic 63–90
[2023-09-01] MEDS: PANTOPRAZOLE INJECTION 40 MG VIAL IV SCH ×2 (05:12→18:01)
[2023-09-01] MEDS: LACTATED RINGERS 1,000 ML 1,000 ML IV SCH ×3 (05:13→13:12)
[2023-09-01 05:34] LABS: BASOPHILS % (AUTO) 0 % (0-10); EOSINOPHILS % (AUTO) 0 % (0-10); HEMATOCRIT 24 % (35-52); HEMOGLOBIN 7.6 g/dL (11.5-16.0); LYMPHOCYTES # (AUTO) 1.8 10^3/uL (1.0-4.0); LYMPHOCYTES % (AUTO) 13 % (12-44); MEAN CORPUSCULAR HEMOGLOBIN 30 pg (25-34); MEAN CORPUSCULAR HGB CONC 32 g/dL (32-36); MEAN CORPUSCULAR VOLUME 93 fL (80-99); MEAN PLATELET VOLUME 9.1 fL (9.0-12.2); MONOCYTES # (AUTO) 1.1 10^3/uL (0.0-1.0); MONOCYTES % (AUTO) 8 % (0-12); NEUTROPHILS % (AUTO) 79 % (42-75); PLATELET COUNT 225 10^3/uL (130-400)
[2023-09-01 05:54] LABS: ALBUMIN 2.7 GM/DL (3.2-4.5); BILIRUBIN,TOTAL 0.4 MG/DL (0.1-1.0); CALCIUM 8.7 MG/DL (8.5-10.1); CREATININE SERUM 1.02 MG/DL (0.60-1.30); POTASSIUM 4.1 MMOL/L (3.6-5.0); TOTAL PROTEIN 5.4 GM/DL (6.4-8.2)
[2023-09-01] MEDS: PIPERACILLIN/Tazobactam 4.5 GM in NS (IVPB) 100 ML 100 ML IV SCH ×3 (06:42→22:57)
[2023-09-01] MEDS: RT-Ipratropium/Albuterol NEB 3 ML VIAL INH SCH ×4 (07:13→22:19)
--- NOTE | 2023-09-01 08:26 | Diagnostic Imaging Report ---
INDICATION: Dyspnea, follow-up pneumonia. COMPARISON: 08/31/2023. DISCUSSION: Single portable upright view of the chest was obtained. Improved aeration of the left lung base. Some infiltrates remain within the left lung base and throughout the right lung. Old right rib fractures are noted. Stable heart size. No pleural fluid or pneumothorax. Ununited proximal left humeral shaft fracture again noted. IMPRESSION: 1. Improved aeration of the left lung base. Infiltrates within the right lung are stable. Dictated by: Dictated on workstation # [id number]
[2023-09-01] MEDS ORDERED: RT-Ipratropium/Albuterol NEB 3 ML VIAL INH PRN (09:30)
--- NOTE | 2023-09-01 11:35 | Consultation - Surgery ---
History of Present Illness History of Present Illness Patient Consulted On(cornelia/time) 09/01/23 11:29 Time Seen by Provider: 10:39 History of Present Illness Surgery asked to consult regarding anemia and G-tube complications HPI per ED: PT ARRIVED PER EMS, PT IS FROM [facility]. PT HAS HAD SOA TODAY, PT HAS PEG TUBE AND WHEN RESIDUAL CHECKED, PT HAS COFFEE GROUND RESULTS. PT HAS HAD LOW GRADE TEMP TODAY. PT IS NON VERBAL. PT ALSO HAD WBC OF 22,000 Source of Information: EMS, Halfway RecordsExam Limitations: Other (PT IS NON-VERBAL) PT ARRIVES VIA EMS FROM [facility], PT IS NON-VERBAL, PT HAS FEEDING TUBE AND HAD SOME COFFEE-GROUND STOMACH CONTENTS TODAY, PT HAS BEEN SHORT OF BREATH TODAY--PT ARRIVES ON 4L O2/NC, EMS REPORT TEMP OF 103, PT HAD LAB DONE TODAY AND WBC WAS 22,000, SO SENT HERE Hx obtained from chart, pt is non-verbal and no family present. Allergies and Home Medications Allergies Coded Allergies: melatonin (Verified Allergy, Unknown, 03/12/22) nitrofurantoin (Verified Allergy, Unknown, 05/21/23) quetiapine (Verified Adverse Reaction, Unknown, CONFUSION, 08/25/22) confusion Patient Home Medication List Home Medication List Reviewed: Yes Acetaminophen (Acetaminophen) 325 Mg Tablet, 650 MG PEG 0000,0800,1600, (Reported) Entered as Reported by: JANAK RAHMAN on 05/21/23 0909 Allopurinol (Allopurinol) 100 Mg Tablet, 100 MG DAILY, (Reported) Entered as Reported by: JANAK RAHMAN on 08/22/22 0939 Amlodipine Besylate (Amlodipine Besylate) 5 Mg Tablet, 5 MG DAILY, (Reported) Entered as Reported by: JANAK RAHMAN on 08/22/22 0939 Amoxicillin/Potassium Clav (Amox Tr-K Clv 500-125 mg Tab) 500 Mg-125 Mg Tablet, 1 EACH GT BID Prescribed by: ABISAI WHARTON on 05/22/23 1048 Ascorbic Acid (Vitamin C) 1,000 Mg Tablet, 1,000 MG DAILY, (Reported) Entered as Reported by: JANAK RAHMAN on 08/22/22 0939 Aspirin (Aspirin) 81 Mg Tab.chew, 81 MG HS, (Reported) Entered as Reported by: JANAK RAHMAN on 08/22/22 09 Carboxymethylcellulose Sodium (Refresh Tears) 0.5 % Drops, 1 DROP OU QID, (Reported) Entered as Reported by: JANAK RAHMAN on 08/22/22 09 Cholecalciferol (Vitamin D3) (Vitamin D3) 125 Mcg/Ml (5000 Unit/Ml) Drops, 0.5 ML PO HS, (Reported) Entered as Reported by: JANAK RAHMAN on 05/04/23 135 Eyelid Cleanser Combination #5 (Ocusoft Lid Scrub) 1 Each Med..pad, 1 EACH TP DAILY, (Reported) Entered as Reported by: JANAK RAHMAN on 08/22/22 09 Lactulose (Constulose) 10 Gram/15 Ml Solution, 15 ML PEG BID PRN for CONSTIPATION-3RD LINE, (Reported) Entered as Reported by: JANAK RAHMAN on 05/21/23 09 Lidocaine (Lidocaine 5% Patch) 5 % Adh..patch, 1 EACH TP DAILY, (Reported) Entered as Reported by: JANAK RAHMAN on 05/04/23 135 Ondansetron HCl (Ondansetron HCl) 4 Mg Tablet, 4 MG Q8H PRN for NAUSEA/VOMITING- 1ST LINE, (Reported) Entered as Reported by: JANAK RAHMAN on 05/04/23 135 Pantoprazole Sodium (Protonix) 40 Mg Granpkt.dr, 40 MG PEG 929,2129, (Reported) Entered as Reported by: JANAK RAHMAN on 05/21/23 09 Polyethylene Glycol 3350 ([id number]) 17 Gram/Dose Powder, 17 GM DAILY, (Reported) Entered as Reported by: JANAK RAHMAN on 05/04/23 135 Psyllium Husk (with Sugar) (Metamucil Packet) 3.4 Gram Powd.pack, 3.4 GM BID, (Reported) Entered as Reported by: JANAK RAHMAN on 05/04/23 135 Past Hxrjhdu-Ehmfzh-Loovbj Hx Patient Social History Recent Hopitalizations: No Alcohol Use?: Unable to obtain Immunizations Up To Date Tetanus Booster (TDap): Unknown PED Vaccines UTD: No Date of Pneumonia Vaccine: Jul 22, 2017 Date of Influenza Vaccine: Jul 22, 2017 Seasonal Allergies Seasonal Allergies: No Surgeries History of Surgeries: Yes (FEEDING TUBE) Surgeries: Abdominal Respiratory History of Respiratory Disorde: Yes (ASPIRATION PNEUMONIA) Respiratory Disorders: Pneumonia Cardiovascular History of Cardiac Disorders: Yes (SEES DR. 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 Genitourinary History of Genitourinary Disor: Yes Genitourinary Disorders: UTI-Chronic Gastrointestinal History of Gastrointestinal Di: Yes (ASPIRATION) Gastrointestinal Disorders: Gastroesophageal Reflux Musculoskeletal History of Musculoskeletal Dis: Yes (POOR AMBULATION, FREQUENT FALLS; MULTIPLE FRACTURES) Musculoskeletal Disorders: Fractures, Gout Endocrine History of Endocrine Disorders: Yes Endocrine Disorders: Hypothyroidsim HEENT History of HEENT Disorders: Yes HEENT Disorders: Cataract Loss of Vision: Denies Hearing Impairment: Hard of Hearing Cancer History of Cancer: No Psychosocial History of Psychiatric Problem: Yes Behavioral Health Disorders: Depression Integumentary History of Skin or Integumenta: No Blood Transfusions History of Blood Disorders: No Adverse Reaction to a Blood Tr: No Family Medical History Significant Family History: Diabetes (Father) Family Medial History: Dementia G8 SISTER Diabetes mellitus 19 FATHER Review of Systems-General ROS-Unable to Obtain: pt non-verbal Physical Exam-General Problems Physical Exam Vital Signs Vital Signs - First Documented 08/31/23 08/31/23 18:05 18:14 Temp 40.3 Pulse 107 Resp 18 B/P (MAP) 126/80 (95) Pulse Ox 92 O2 Delivery Nasal Cannula O2 Flow Rate 4.00 Capillary Refill : Less Than 3 Seconds General Appearance: mild distress, cachetic, other (appears chronically ill and is laying in position, does not appear to be in pain) Eyes: Bilateral Eye EOMI, Bilateral Eye Other (surgical changes on eyes) HEENT: pharynx normal; No scleral icterus (R), No scleral icterus (L) Respiratory: no respiratory distress, no accessory muscle use, decreased breath sounds, crackles Cardiovascular: no murmur, tachycardia Gastrointestinal: soft, no organomegaly, other (Peg tube, one port is broken but accessible. Pt says stop when I am touching her abdomen, but it doesn't look like a pain reaction) Rectal: deferred Extremities: no pedal edema, normal capillary refill, other (pt appears to be contracted in all limbs and I cannot get her to lay flat) Neurologic/Psychiatric: other (does not answer questions) Skin: normal color, warm/dry Data Review Labs Laboratory Tests 08/31/23 18:10: White Blood Count 22.1H, Red Blood Count 3.54L, Hemoglobin 10.5L, Hematocrit 32L , Mean Corpuscular Volume 91, Mean Corpuscular Hemoglobin 30, Mean Corpuscular Hemoglobin Concent 33, Red Cell Distribution Width 17.0H, Platelet Count 306, Mean Platelet Volume 9.5, Immature Granulocyte % (Auto) 1, Neutrophils (%) (Auto) 85H, Lymphocytes (%) (Auto) 8L, Monocytes (%) (Auto) 7, Eosinophils (%) (Auto) 0, Basophils (%) (Auto) 0, Neutrophils # (Auto) 18.7H, Lymphocytes # (Auto) 1.8, Monocytes # (Auto) 1.5H, Eosinophils # (Auto) 0.0, Basophils # (Auto) 0.0, Immature Granulocyte # (Auto) 0.1, Neutrophils % (Manual) 86, Lymphocytes % (Manual) 8, Monocytes % (Manual) 4, Band Neutrophils 2, Anisocytosis SLIGHT, Prothrombin Time 15.4H, INR Comment 1.2, Activated Partial Thromboplast Time 32, Sodium Level 135, Potassium Level 4.7, Chloride Level 96L, Carbon Dioxide Level 26, Anion Gap 13, Blood Urea Nitrogen 44H, Creatinine 1.38H , Estimat Glomerular Filtration Rate 37, BUN/Creatinine Ratio 32, Glucose Level 137H, Lactic Acid Level 1.76, Calcium Level 10.6H, Corrected Calcium 10.9H, Magnesium Level 1.8, Total Bilirubin 0.5, Aspartate Amino Transf (AST/SGOT) 21, Alanine Aminotransferase (ALT/SGPT) 19, Alkaline Phosphatase 84, Total Protein 7.5, Albumin 3.6, Amylase Level 42, Lipase 6L 08/31/23 18:39: Influenza Type A (RT-PCR) Not Detected, Influenza Type B (RT-PCR) Not Detected, SARS-CoV-2 RNA (RT-PCR) Not Detected 08/31/23 19:36: Urine Color YELLOW, Urine Clarity CLOUDY, Urine pH 7.0, Urine Specific [place] 1.025H, Urine Protein 3+H, Urine Glucose (UA) NEGATIVE, Urine Ketones NEGATIVE, Urine Nitrite NEGATIVE, Urine Bilirubin NEGATIVE, Urine Urobilinogen 0.2, Urine Leukocyte Esterase 3+H, Urine RBC (Auto) 2+H, Urine RBC 50-100H, Urine WBC TNTCH , Urine Squamous Epithelial Cells NONE, Urine Crystals NONE, Urine Bacteria LARGEH, Urine Casts NONE, Urine Mucus NEGATIVE, Urine Culture Indicated CULTURE PENDING 09/01/23 05:25: White Blood Count 14.0H, Red Blood Count 2.54L, Hemoglobin 7.6#L, Hematocrit 24L , Mean Corpuscular Volume 93, Mean Corpuscular Hemoglobin 30, Mean Corpuscular Hemoglobin Concent 32, Red Cell Distribution Width 17.1H, Platelet Count 225, Mean Platelet Volume 9.1, Immature Granulocyte % (Auto) 0, Neutrophils (%) (Auto) 79H, Lymphocytes (%) (Auto) 13, Monocytes (%) (Auto) 8, Eosinophils (%) (Auto) 0, Basophils (%) (Auto) 0, Neutrophils # (Auto) 11.0H, Lymphocytes # (Auto) 1.8, Monocytes # (Auto) 1.1H, Eosinophils # (Auto) 0.0, Basophils # (Auto) 0.0, Immature Granulocyte # (Auto) 0.1, Sodium Level 136, Potassium Level 4.1, Chloride Level 105, Carbon Dioxide Level 22, Anion Gap 9, Blood Urea Nitrogen 37H, Creatinine 1.02, Estimat Glomerular Filtration Rate 53, BUN/Creatinine Ratio 36, Glucose Level 86, Calcium Level 8.7, Corrected Calcium 9.7, Total Bilirubin 0.4, Aspartate Amino Transf (AST/SGOT) 17, Alanine Aminotransferase (ALT/SGPT) 15, Alkaline Phosphatase 58, Total Protein 5.4L, Albumin 2.7L Microbiology 08/31/23 Urine Culture - Preliminary, Resulted Gram Negative Bacillus 1 Radiology Date of Exam:08/31/23 CT CHEST/ABDOMEN/PELVIS W PROCEDURE: CT chest, abdomen, and pelvis with contrast. TECHNIQUE: Multiple contiguous axial images were obtained through the chest, abdomen, and pelvis after the administration of intravenous contrast. Auto Exposure Controls were utilized during the CT exam to meet ALARA standards for radiation dose reduction. INDICATION: Dyspnea, hypoxia, coffee-ground contents of feeding tube, GI bleed. COMPARISON: 02/25/2023. FINDINGS: CT CHEST: The heart is mildly large. There is mild pericardial fluid without rj effusion seen. There is calcific atherosclerosis of the aorta. The ascending aorta is mildly ectatic. There is a small hiatal hernia. There is coronary atherosclerosis. No axillary adenopathy is seen. There is airspace consolidation in the left upper lobe and the left lower lobe at the lung base. This is new since the prior study. There is motion artifact throughout the lungs with dependent atelectasis. No central endobronchial lesion is seen. No acute osseous abnormality is seen. There is an old nonunited fracture of the proximal left humerus. CT ABDOMEN/PELVIS: The liver demonstrates no focal lesion. There is motion artifact. There is a calcified granuloma in the spleen. The pancreas is mildly atrophic but otherwise unremarkable. The adrenal glands appear normal. The kidneys are mildly atrophic with no hydronephrosis or enhancing lesion seen. The bladder is mildly thickened with a Jernigan catheter in place. There is a PEG tube in the stomach. No bowel distention is seen. The appendix appears to be normal. The colon is unremarkable. No contrast extravasation is seen in the stomach. No free fluid or free air is seen. No acute osseous abnormality is seen. There are old posttraumatic deformities in the pelvis. IMPRESSION: 1. Consolidation in the left lung, concerning for infection. 2. Mild thickening of the urinary bladder, please correlate clinically for findings of infection. No other acute abnormality is seen in the abdomen or pelvis. Dictated by: Dictated on workstation # [id number] Dict: 08/31/231944 Trans: 08/31/232239 [facility] [id number] Interpreted by: ARTUR VILLANUEVA MD Electronically signed by: ARTUR VILLANUEVA MD 08/31/237 Assessment/Plan Assessment/Plan Assessment/Plan Anemia G-tube problems UTI Leukocytosis - improved, but unknown cause I would leave the G-tube alone, it is accessible and can work for tube feeds (the male/female connector in the access works). She did drop her Hg and there is report of melanotic drainage from around tube (I did not see anything); if family wants we can make her NPO Sunday night and do an EGD on Sunday. She was started on ABX, would continue and await culture results. ROB BARTON DO Sep 01, 2023 11:35
[2023-09-01] MEDS: fentaNYL INJECTION 100 MCG/2 ML VIAL IV PRN ×2 (12:18→16:50)
--- NOTE | 2023-09-01 12:22 | History & Physical-Hospitalist ---
History of Present Illness HPI/Chief Complaint Patient is an 87-year-old female known to me from previous admissions who presented to the emergency department due to coffee-ground emesis and leukocytosis. She is unable to provide me any history and there is no family at bedside. History is obtained from the records. Per the halfway she had coffee-ground contents in her PEG tube today and was short of breath. They reported a temperature of 103 and so labs were done which showed a leukocytosis of 22,000 and she was referred to the emergency department. The ER he was found to have a mild TIM and persistent leukocytosis with a UTI. She was admitted for IV antibiotics. Her PEG tube was also malfunction appear to be broken. Surgery has been consulted. 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 Patients Allergies have been reviewed. Allergies Allergies Coded Allergies melatonin (Verified Allergy, Unknown, 03/12/22) nitrofurantoin (Verified Allergy, Unknown, 05/21/23) quetiapine (Verified Adverse Reaction, Unknown, CONFUSION, 08/25/22) confusion Past Mudhdlc-Mlufiq-Ssvedk Hx Patient Social History Tobacco Use?: No Smokeless Tobacco Frequency: Unknown if Ever Used Use of E-Cig and/or Vaping dev: Unable to obtain Substance use?: Unable to obtain Alcohol Use?: Unable to obtain Pt feels they are or have been: Unable to obtain Immunizations Up To Date Date of Influenza Vaccine: Jul 22, 2017 First/Initial COVID19 Vaccinat: YES Second COVID19 Vaccination Theo: YES Tetanus Booster (TDap): Unknown Hepatitis A: No Hepatitis B: No PED Vaccines UTD: No Date of Pneumonia Vaccine: Jul 22, 2017 Seasonal Allergies Seasonal Allergies: No Current Status Advance Directives: Unable to obtain Advance Directive Location: Copy placed in chart Communicates: Does Not Communicate Primary Language: Urdu Preferred Spoken Language: Urdu Is interpretation needed?: No Sensory deficits: Hearing impairment Implanted or Applied Medical D: Other Past Medical History Surgeries: Abdominal Pneumonia Currently Using CPAP: No Currently Using BIPAP: No Atrial Fibrillation, Coronary Artery Disease, High Cholesterol, Hypertension Dementia, Traumatic Brain Injury 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 Review of Systems Constitutional: see HPI Physical Exam Physical Exam Vital Signs Vital Signs - First Documented 08/31/23 08/31/23 18:05 18:14 Temp 40.3 Pulse 107 Resp 18 B/P (MAP) 126/80 (95) Pulse Ox 92 O2 Delivery Nasal Cannula O2 Flow Rate 4.00 Capillary Refill : Less Than 3 Seconds Height, Weight, BMI Height: 5'4.00" Weight: 117lbs. 8.0oz. 53.075555ka; 33.74 BMI Method:Stated General Appearance: No Apparent Distress, Chronically ill Respiratory: No Accessory Muscle Use, Crackles (right base), Decreased Breath Sounds; No Wheezing Cardiovascular: Regular Rate, Rhythm, No Murmur Gastrointestinal: Other (broken PEG tube) Neurologic/Psychiatric: Alert, Other (answered yes and no questions only and u nsure if accurate) Results Results/Procedures Labs Laboratory Tests 09/04/23 05:23 Patient resulted labs reviewed. Imaging [facility], [place], [place] NAME: SUDARSHAN ARAUJO [facility] REC#: [id number] PT STATUS: REG ER : 1935 PHYSICIAN: KAREY GAY DO ADMIT DATE: 08/31/23/ER Signed Date of Exam:08/31/23 CHEST 1 VIEW, AP/PA ONLY INDICATION: Shortness of air, fever. TECHNIQUE: Single view chest 7:09 PM. CORRELATION STUDY: 05/19/2023. FINDINGS: Heart size stable. Vasculature is increased from prior. Perihilar, basilar and right upper lobe opacities are present, appearing changed from prior. Suspect left pleural effusion. Ununited left proximal humerus fracture, unchanged. IMPRESSION: 1. Heart size stable with vasculature appearing increased suspect for at least component of edema. 2. Scattered bilateral pulmonary opacities. May reflect asymmetric areas of edema with infiltrate or even aspiration not excluded. Most pronounced at the left lung base. Dictated by: Dictated on workstation # [id number] Dict: 08/31/231931 Trans: 08/31/232012 [facility] [id number] Interpreted by: KANDI NASH DO Electronically signed by: KANDI NASH DO 08/31/232012 [facility], [place] NAME: SUDARSHAN ARAUJO [facility] REC#: [id number] PT STATUS: ADM IN : 1935 PHYSICIAN: KAREY GAY DO ADMIT DATE: 08/31/23 Signed Date of Exam:08/31/23 CT CHEST/ABDOMEN/PELVIS W PROCEDURE: CT chest, abdomen, and pelvis with contrast. TECHNIQUE: Multiple contiguous axial images were obtained through the chest, abdomen, and pelvis after the administration of intravenous contrast. Auto Exposure Controls were utilized during the CT exam to meet ALARA standards for radiation dose reduction. INDICATION: Dyspnea, hypoxia, coffee-ground contents of feeding tube, GI bleed. COMPARISON: 02/25/2023. FINDINGS: CT CHEST: The heart is mildly large. There is mild pericardial fluid without rj effusion seen. There is calcific atherosclerosis of the aorta. The ascending aorta is mildly ectatic. There is a small hiatal hernia. There is coronary atherosclerosis. No axillary adenopathy is seen. There is airspace consolidation in the left upper lobe and the left lower lobe at the lung base. This is new since the prior study. There is motion artifact throughout the lungs with dependent atelectasis. No central endobronchial lesion is seen. No acute osseous abnormality is seen. There is an old nonunited fracture of the proximal left humerus. CT ABDOMEN/PELVIS: The liver demonstrates no focal lesion. There is motion artifact. There is a calcified granuloma in the spleen. The pancreas is mildly atrophic but otherwise unremarkable. The adrenal glands appear normal. The kidneys are mildly atrophic with no hydronephrosis or enhancing lesion seen. The bladder is mildly thickened with a Jernigan catheter in place. There is a PEG tube in the stomach. No bowel distention is seen. The appendix appears to be normal. The colon is unremarkable. No contrast extravasation is seen in the stomach. No free fluid or free air is seen. No acute osseous abnormality is seen. There are old posttraumatic deformities in the pelvis. IMPRESSION: 1. Consolidation in the left lung, concerning for infection. 2. Mild thickening of the urinary bladder, please correlate clinically for findings of infection. No other acute abnormality is seen in the abdomen or pelvis. Dictated by: Dictated on workstation # [id number] Dict: 08/31/231944 Trans: 08/31/232239 [facility] [id number] Interpreted by: ARTUR VILLANUEVA MD Electronically signed by: ARTUR VILLANUEVA MD 08/31/232239 Assessment/Plan Admission Diagnosis Sepsis Admission Status: Inpatient Order (span 2 midnights) Reason for Inpatient Admission: see below Assessment and Plan Severe Sepsis due to UTI and aspiration PNA- POA TIM Continue IV abx Await cultures NPO Wean oxygen as able Anemia with coffee ground emesis Dysphagia PEG tube malfunction NPO Continue tube feeds as able per [facility] orders Surgery consulted, appreciate recs PPI HTN HLD Cerebellar ataxia Dementia Chronic debility Advanced age Chronic, stable Resides in NH Continue home meds as able DVT prophylaxis: HEATHER Winchester MD Sep 01, 2023 12:22
[2023-09-02] MEDS: LACTATED RINGERS 1,000 ML 1,000 ML IV SCH ×2 (03:09→16:32)
[2023-09-02] MEDS: RT-Ipratropium/Albuterol NEB 3 ML VIAL INH SCH ×4 (03:09→21:21)
[2023-09-02 03:25] VITALS: BP 127/78
[2023-09-02 05:33] LABS: BASOPHILS % (AUTO) 0 % (0-10); EOSINOPHILS # (AUTO) 0.1 10^3/uL (0.0-0.3); EOSINOPHILS % (AUTO) 1 % (0-10); HEMATOCRIT 25 % (35-52); HEMOGLOBIN 8.2 g/dL (11.5-16.0); LYMPHOCYTES # (AUTO) 1.4 10^3/uL (1.0-4.0); LYMPHOCYTES % (AUTO) 12 % (12-44); MEAN CORPUSCULAR HEMOGLOBIN 30 pg (25-34); MEAN CORPUSCULAR HGB CONC 32 g/dL (32-36); MEAN CORPUSCULAR VOLUME 91 fL (80-99); MEAN PLATELET VOLUME 9.1 fL (9.0-12.2); MONOCYTES % (AUTO) 8 % (0-12); NEUTROPHILS # (AUTO) 9.4 10^3/uL (1.8-7.8); NEUTROPHILS % (AUTO) 79 % (42-75); PLATELET COUNT 225 10^3/uL (130-400); WHITE BLOOD COUNT 11.9 10^3/uL (4.3-11.0)
[2023-09-02 05:41] LABS: ALBUMIN 2.7 GM/DL (3.2-4.5)
[2023-09-02 05:42] LABS: POTASSIUM 3.4 MMOL/L (3.6-5.0)
[2023-09-02 05:43] LABS: CALCIUM 8.9 MG/DL (8.5-10.1)
[2023-09-02 05:44] LABS: TOTAL PROTEIN 5.7 GM/DL (6.4-8.2)
[2023-09-02 05:46] LABS: BILIRUBIN,TOTAL 0.6 MG/DL (0.1-1.0)
[2023-09-02 05:48] LABS: CREATININE SERUM 0.88 MG/DL (0.60-1.30)
[2023-09-02] MEDS: PANTOPRAZOLE INJECTION 40 MG VIAL IV SCH ×2 (05:48→17:47)
[2023-09-02] MEDS: PIPERACILLIN/Tazobactam 4.5 GM in NS (IVPB) 100 ML 100 ML IV SCH ×3 (06:06→23:13)
[2023-09-02 08:15] VITALS: BP 160/72
[2023-09-02 11:42] VITALS: BP 177/80
--- NOTE | 2023-09-02 12:29 | Progress Note - Hospitalist ---
Subjective HPI/CC On Admission Date Seen by Provider: Sep 02, 2023 Patient is an 87-year-old female known to me from previous admissions who presented to the emergency department due to coffee-ground emesis and leukocytosis. She is unable to provide me any history and there is no family at bedside. History is obtained from the records. Per the half-way she had coffee-ground contents in her PEG tube today and was short of breath. They reported a temperature of 103 and so labs were done which showed a leukocytosis of 22,000 and she was referred to the emergency department. The ER he was found to have a mild TIM and persistent leukocytosis with a UTI. She was admitted for IV antibiotics. Her PEG tube was also malfunction appear to be broken. Surgery has been consulted. Subjective/Events-last exam Pt more alert today. Answered a few questions seemingly appropriate. Updated her DPOA over the phone. Focused Exam Lactate Level 08/31/23 05:25: Lactic Acid Level 1.20 08/31/23 18:10: Lactic Acid Level 1.76 Objective Exam Vital Signs Vital Signs Date Time Temp Pulse Resp B/P (MAP) Pulse Ox O2 Delivery O2 Flow Rate FiO2 09/02/23 11:42 36.5 82 20 177/80 (112) 97 Nasal Cannula 4.00 Capillary Refill : Less Than 3 Seconds General Appearance: No Apparent Distress, Chronically ill, Thin Respiratory: Lungs Clear, No Respiratory Distress Cardiovascular: Regular Rate, Rhythm, No Murmur Gastrointestinal: Normal Bowel Sounds, Soft Neurologic/Psychiatric: Alert, Other (aphasia) Results/Procedures Lab Laboratory Tests 09/02/23 05:23 Patient resulted labs reviewed. Assessment/Plan Assessment and Plan Assess & Plan/Chief Complaint Severe Sepsis due to UTI and aspiration PNA- POA TIM Continue IV abx Await cultures still NPO for known dysphagia Wean oxygen as able Anemia with coffee ground emesis Dysphagia PEG tube malfunction NPO Continue tube feeds as able per NH orders Surgery consulted, appreciate recs PPI HTN HLD Cerebellar ataxia Dementia Chronic debility Advanced age Chronic, stable Resides in NH Continue home meds as able DVT prophylaxis: HEATHER Winchester MD Sep 02, 2023 12:29
--- NOTE | 2023-09-02 14:50 | Progress Note - Surgery ---
Subjective Time Seen by a Provider: 12:07 Subjective/Events-last exam Pt seen and examined, appears comfortable and there is no family in the room. Review of Systems unable to obtain, pt non-verbal Focused Exam Lactate Level 08/31/23 05:25: Lactic Acid Level 1.20 08/31/23 18:10: Lactic Acid Level 1.76 Objective Exam Vital Signs Date Time Temp Pulse Resp B/P (MAP) Pulse Ox O2 Delivery O2 Flow Rate FiO2 09/02/23 13:23 82 09/02/23 11:42 36.5 82 20 177/80 (112) 97 Nasal Cannula 4.00 09/02/23 09:22 90 Nasal Cannula 4.00 09/02/23 08:24 94 Nasal Cannula 4.00 09/02/23 08:15 36.6 76 20 160/72 (101) 94 Nasal Cannula 4.00 09/02/23 07:01 79 09/02/23 07:00 62 09/02/23 03:25 36.8 79 24 127/78 (94) 95 Nasal Cannula 4.00 4.00 09/02/23 03:09 95 Nasal Cannula 4.00 09/02/23 01:00 76 09/01/23 23:49 37.4 84 24 148/65 (92) 97 Nasal Cannula 4.00 09/01/23 22:19 94 Nasal Cannula 4.00 09/01/23 20:04 Nasal Cannula 4.00 09/01/23 19:47 37.0 81 17 134/71 (92) 96 Nasal Cannula 4.00 09/01/23 19:00 88 09/01/23 17:14 37.0 83 18 137/63 (87) 97 Nasal Cannula 4.00 09/01/23 17:14 36.4 09/01/23 16:00 37.0 83 18 137/63 (87) 97 Nasal Cannula 4.00 I & O 09/02/23 06:59 Intake Total 1200 ml Output Total 1475 ml Balance -275 ml Capillary Refill : Less Than 3 Seconds General Appearance: No Apparent Distress, Chronically ill, Thin Respiratory: Lungs Clear, No Respiratory Distress Cardiovascular: Regular Rate, Rhythm, No Murmur Gastrointestinal: soft, no organomegaly, other (Peg tube, one port is broken but accessible. ) Neurologic/Psychiatric: Other (aphasia) Results Lab Laboratory Tests 09/02/23 05:23: White Blood Count 11.9H, Red Blood Count 2.78L, Hemoglobin 8.2L, Hematocrit 25L, Mean Corpuscular Volume 91, Mean Corpuscular Hemoglobin 30, Mean Corpuscular Hemoglobin Concent 32, Red Cell Distribution Width 16.9H, Platelet Count 225, Mean Platelet Volume 9.1, Immature Granulocyte % (Auto) 0, Neutrophils (%) (Auto) 79H, Lymphocytes (%) (Auto) 12, Monocytes (%) (Auto) 8, Eosinophils (%) (Auto) 1, Basophils (%) (Auto) 0, Neutrophils # (Auto) 9.4H, Lymphocytes # (A uto) 1.4, Monocytes # (Auto) 1.0, Eosinophils # (Auto) 0.1, Basophils # (Auto) 0.0, Immature Granulocyte # (Auto) 0.0, Sodium Level 134L, Potassium Level 3.4L, Chloride Level 102, Carbon Dioxide Level 24, Anion Gap 8, Blood Urea Nitrogen 22H, Creatinine 0.88, Estimat Glomerular Filtration Rate 63, BUN/Creatinine Ratio 25, Glucose Level 72, Calcium Level 8.9, Corrected Calcium 9.9, Total Bilirubin 0.6, Aspartate Amino Transf (AST/SGOT) 20, Alanine Aminotransferase (ALT/SGPT) 14, Alkaline Phosphatase 58, Total Protein 5.7L, Albumin 2.7L Microbiology 08/31/23 Urine Culture - Preliminary, Resulted Gram Negative Bacillus 1 08/31/23 Blood Culture - Preliminary, Resulted Staphylococcus epidermidis Assessment/Plan Assessment/Plan Assessment/Plan Anemia G-tube problems UTI Leukocytosis - improved, but unknown cause I spoke with Hospitalist who states family is fine keeping her comfortable, monitoring labs and not doing anything heroic. Therefore, I would leave the G- tube alone, it is accessible and can work for tube feeds (the male/female connector in the access works). She was started on ABX, would continue and await culture results. ROB BARTON DO Sep 02, 2023 14:50
[2023-09-02 15:55] VITALS: BP 132/88
[2023-09-02 19:39] VITALS: BP 156/68
[2023-09-02 23:49] VITALS: BP 158/71
[2023-09-03] MEDS: RT-Ipratropium/Albuterol NEB 3 ML VIAL INH SCH ×4 (03:00→21:28)
[2023-09-03 03:09] VITALS: BP 140/68
[2023-09-03] MEDS: PANTOPRAZOLE INJECTION 40 MG VIAL IV SCH ×2 (05:18→17:29)
[2023-09-03] MEDS: LACTATED RINGERS 1,000 ML 1,000 ML IV SCH (05:19)
[2023-09-03 05:59] LABS: BASOPHILS % (AUTO) 0 % (0-10); EOSINOPHILS # (AUTO) 0.2 10^3/uL (0.0-0.3); EOSINOPHILS % (AUTO) 3 % (0-10); HEMATOCRIT 27 % (35-52); HEMOGLOBIN 8.3 g/dL (11.5-16.0); LYMPHOCYTES # (AUTO) 1.4 10^3/uL (1.0-4.0); LYMPHOCYTES % (AUTO) 16 % (12-44); MEAN CORPUSCULAR HEMOGLOBIN 29 pg (25-34); MEAN CORPUSCULAR HGB CONC 31 g/dL (32-36); MEAN CORPUSCULAR VOLUME 92 fL (80-99); MEAN PLATELET VOLUME 9.5 fL (9.0-12.2); MONOCYTES # (AUTO) 0.8 10^3/uL (0.0-1.0); MONOCYTES % (AUTO) 9 % (0-12); NEUTROPHILS # (AUTO) 6.5 10^3/uL (1.8-7.8); NEUTROPHILS % (AUTO) 73 % (42-75); PLATELET COUNT 223 10^3/uL (130-400); WHITE BLOOD COUNT 8.9 10^3/uL (4.3-11.0)
[2023-09-03] MEDS: PIPERACILLIN/Tazobactam 4.5 GM in NS (IVPB) 100 ML 100 ML IV SCH ×3 (06:10→22:17)
[2023-09-03 06:24] LABS: ALBUMIN 2.7 GM/DL (3.2-4.5); BILIRUBIN,TOTAL 0.5 MG/DL (0.1-1.0); CREATININE SERUM 0.74 MG/DL (0.60-1.30); POTASSIUM 3.2 MMOL/L (3.6-5.0); TOTAL PROTEIN 5.7 GM/DL (6.4-8.2)
[2023-09-03] MEDS ORDERED: DEXTROSE 50% 50 ML (IMS) SYR ONE (06:42)
[2023-09-03] MEDS ORDERED: DEXTROSE 50% 50 ML (IMS) SYR IV ONE (06:45)
[2023-09-03 07:19] VITALS: BP 145/70
[2023-09-03] MEDS: POTASSIUM CHLORIDE 20 MEQ TABLET PO NR ×2 (07:42→07:44)
[2023-09-03] MEDS: POTASSIUM CL 10MEQ/50ML IVPB 50 ML IV SCH ×3 (08:11→10:23)
[2023-09-03] MEDS ORDERED: POTASSIUM CHLORIDE 20 MEQ TABLET PO NR (09:00)
--- NOTE | 2023-09-03 10:02 | Physical Therapy Progress Note ---
Therapy Progress Note Patient is dependent PLOF with all gross motor skills at MD. No skilled PT indicated. Patient currently lethargic and moans with any movement/intervention. Physician and SW notified. DEVIN FINCH PT Sep 03, 2023 10:02
[2023-09-03 11:11] VITALS: BP 140/65
--- NOTE | 2023-09-03 11:46 | Occ Therapy Progress Note ---
Therapy Progress Note Patient is dependent PLOF with all gross motor skills at MT. No skilled OT indicated. Patient currently lethargic and moans with any movement/intervention. Physician and SW notified. PHANI CARVALHO OT Sep 03, 2023 11:46
--- NOTE | 2023-09-03 12:12 | Progress Note ---
JOSEMANUEL JOHN 09/03/23 1212: Subjective Date Seen by a Provider: Sep 03, 2023 Subjective/Events-last exam Pt was seen today and was nonverbal. Family was not in the room. Focused Exam Lactate Level 08/31/23 18:10: Lactic Acid Level 1.76 Objective Exam Last Set of Vital Signs Vital Signs Date Time Temp Pulse Resp B/P (MAP) Pulse Ox O2 Delivery O2 Flow Rate FiO2 09/03/23 08:00 Nasal Cannula 4.00 09/03/23 07:30 65 09/03/23 07:19 36.2 20 145/70 (95) 95 Capillary Refill : Less Than 3 Seconds I&O Intake and Output 09/02/23 23:59 Intake Total 1100 ml Output Total 1400 ml Balance -300 ml Intake Oral 0 ml IV Total 1100 ml Output Urine Total 1400 ml General: Alert, Cooperative HEENT: PERRLA, EOMI Lungs: Clear to Auscultation, Normal Air Movement Heart: Regular Rate, No Murmurs Abdomen: Normal Bowel Sounds, Soft, No Tenderness Extremities: No Clubbing, No Cyanosis, Normal Pulses (2+ b/l radial and posterior tibialis) Results Lab Laboratory Tests 09/03/23 05:08: White Blood Count 8.9, Red Blood Count 2.89L, Hemoglobin 8.3L, Hematocrit 27L, Mean Corpuscular Volume 92, Mean Corpuscular Hemoglobin 29, Mean Corpuscular Hemoglobin Concent 31L, Red Cell Distribution Width 16.6H, Platelet Count 223, Mean Platelet Volume 9.5, Immature Granulocyte % (Auto) 0, Neutrophils (%) (Auto) 73, Lymphocytes (%) (Auto) 16, Monocytes (%) (Auto) 9, Eosinophils (%) (Auto) 3, Basophils (%) (Auto) 0, Neutrophils # (Auto) 6.5, Lymphocytes # (Auto) 1.4, Monocytes # (Auto) 0.8, Eosinophils # (Auto) 0.2, Basophils # (Auto) 0.0, Immature Granulocyte # (Auto) 0.0, Sodium Level 138, Potassium Level 3.2L, Chloride Level 103, Carbon Dioxide Level 23, Anion Gap 12, Blood Urea Nitrogen 19H, Creatinine 0.74, Estimat Glomerular Filtration Rate 78, BUN/Creatinine Ratio 26, Glucose Level 53*L, Calcium Level 9.0, Corrected Calcium 10.0, Total Bilirubin 0.5, Aspartate Amino Transf (AST/SGOT) 17, Alanine Aminotransferase (ALT/SGPT) 14, Alkaline Phosphatase 56, Total Protein 5.7L, Albumin 2.7L 09/03/23 07:17: Glucometer 107 09/03/23 08:08: Microbiology 08/31/23 Urine Culture - Preliminary, Resulted Proteus mirabilis 08/31/23 Blood Culture - Final, Complete Staphylococcus epidermidis No Susceptibility Performed See Comments Assessment/Plan Assessment/Plan Assess & Plan/Chief Complaint Assessment: Anemia UTI G-tube problems Pneumonia Plan: Anemia -CBC to check Hgb status. Iron will be ordered to check level. -EGD not indicated at this time due to risks outweighing the benefits UTI -continue the antibiotics -will review the results of the urine culture + sensitivity to see if changing Abx is necessary G-tube problems -restarted the food through the tube today Pneumonia -continue abx -being to wean pt off the oxygen and monitor O2 stats HEATHER HOANG MD 09/03/23 2012: Assessment/Plan Assessment/Plan Assess & Plan/Chief Complaint Severe Sepsis due to UTI and aspiration PNA- POA TIM Continue IV abx culture growing proteus- await sensitivities NPO for known dysphagia Wean oxygen as able Updated her DPOA Emani today for hopeful plan to DC tomorrow Anemia with coffee ground emesis Dysphagia PEG tube malfunction NPO Continue tube feeds as able per AL orders Surgery consulted, appreciate recs PPI HTN HLD Cerebellar ataxia Dementia Chronic debility Advanced age Chronic, stable Resides in NH Continue home meds as able DVT prophylaxis: SCDs Supervisory-Addendum Brief Verification & Attestation Participated in pt care: history, MDM, physical Personally performed: exam, history, MDM, supervision of care Care discussed with: Medical Student Procedures: n/a Results interpretation: Verified all documentation Verification and Attestation of Medical Student E/M Service A medical student performed and documented this service in my presence. I reviewed and verified all information documented by the medical student and made modifications to such information, when appropriate. I personally performed the physical exam and medical decision making. Heather Hoang, Sep 03, 2023,20:10 JOSEMANUEL JOHN Sep 03, 2023 12:12 HEATHER HOANG MD Sep 03, 2023 20:12
--- NOTE | 2023-09-03 12:59 | Discharge Inst-Simple/Standard ---
Discharge Inst-Standard Patient Instructions/Follow Up Plan of Care/Instructions/FU: Please continue to take your medications as written. Please follow up with your primary care doctor to follow up this hospital stay. Activity as Tolerated: Yes Discharge Diet: Other Diet (Tube Feeds 4 cans of Jevity with 150cc FWF each) Return to The Hospital For: Please bring in for evaluation if she develops shortness of breath, wheezing, abd pain, chest pain, weakness, confusion, or if she appears to be doing worse. HEATHER DYER MD Sep 03, 2023 12:59
--- NOTE | 2023-09-03 13:47 | Progress Note - Surgery ---
Subjective Time Seen by a Provider: 11:49 Subjective/Events-last exam Pt seen and examined, she is actually a little alert today. I asked her if she was in any pain and she said no. Nurse stated that when she nilsa back on G-tube there was no black liquid. Review of Systems Pulmonary: No Dyspnea, No Cough Gastrointestinal: No: Nausea, Vomiting, Abdominal Pain unable to obtain, pt non-verbal Focused Exam Lactate Level 08/31/23 18:10: Lactic Acid Level 1.76 Objective Exam Vital Signs Date Time Temp Pulse Resp B/P (MAP) Pulse Ox O2 Delivery O2 Flow Rate FiO2 09/03/23 13:06 93 09/03/23 11:11 36.1 74 18 140/65 (90) 98 Nasal Cannula 4.00 09/03/23 08:00 Nasal Cannula 4.00 09/03/23 07:30 65 09/03/23 07:19 36.2 68 20 145/70 (95) 95 Nasal Cannula 4.00 09/03/23 03:09 36.4 68 18 140/68 (92) 98 Nasal Cannula 4.00 4.00 09/03/23 01:00 56 09/02/23 23:49 36.5 72 18 158/71 (100) 92 Nasal Cannula 4.00 4.00 09/02/23 21:21 93 Nasal Cannula 4.00 09/02/23 19:45 Nasal Cannula 4.00 09/02/23 19:39 36.6 74 18 156/68 (97) 99 Nasal Cannula 4.00 09/02/23 19:00 74 09/02/23 15:55 37.2 87 20 132/88 (103) Nasal Cannula 4.00 I & O 09/03/23 06:59 Intake Total 1100 ml Output Total 1175 ml Balance -75 ml Capillary Refill : Less Than 3 Seconds General Appearance: No Apparent Distress, Chronically ill, Thin Respiratory: Lungs Clear, Normal Breath Sounds, No Accessory Muscle Use, No Respiratory Distress Cardiovascular: Regular Rate, Rhythm, No Murmur Gastrointestinal: soft, no organomegaly, other (Peg tube, one port is broken but accessible. ) Neurologic/Psychiatric: Other (aphasia) Results Lab Laboratory Tests 09/03/23 05:08: White Blood Count 8.9, Red Blood Count 2.89L, Hemoglobin 8.3L, Hematocrit 27L, Mean Corpuscular Volume 92, Mean Corpuscular Hemoglobin 29, Mean Corpuscular Hemoglobin Concent 31L, Red Cell Distribution Width 16.6H, Platelet Count 223, Mean Platelet Volume 9.5, Immature Granulocyte % (Auto) 0, Neutrophils (%) (Auto) 73, Lymphocytes (%) (Auto) 16, Monocytes (%) (Auto) 9, Eosinophils (%) (Auto) 3, Basophils (%) (Auto) 0, Neutrophils # (Auto) 6.5, Lymphocytes # (Auto) 1.4, Monocytes # (Auto) 0.8, Eosinophils # (Auto) 0.2, Basophils # (Auto) 0.0, Immature Granulocyte # (Auto) 0.0, Sodium Level 138, Potassium Level 3.2L, Chloride Level 103, Carbon Dioxide Level 23, Anion Gap 12, Blood Urea Nitrogen 19H, Creatinine 0.74, Estimat Glomerular Filtration Rate 78, BUN/Creatinine Ratio 26, Glucose Level 53*L, Calcium Level 9.0, Corrected Calcium 10.0, Total Bilirubin 0.5, Aspartate Amino Transf (AST/SGOT) 17, Alanine Aminotransferase (ALT/SGPT) 14, Alkaline Phosphatase 56, Total Protein 5.7L, Albumin 2.7L 09/03/23 07:17: Glucometer 107 09/03/23 08:08: 09/03/23 12:12: Glucometer 85 Microbiology 08/31/23 Urine Culture - Final, Complete Proteus mirabilis 08/31/23 Blood Culture - Final, Complete Staphylococcus epidermidis No Susceptibility Performed See Comments Assessment/Plan Assessment/Plan Assessment/Plan Anemia UTI G-tube problems Pneumonia Anemia - CBC to check Hgb status. EGD not indicated at this time due to risks outweighing the benefits UTI -continue the antibiotics, await results of the urine culture + sensitivity to see if changing Abx is necessary G-tube problems -restarted the food through the tube today, I went over accessing it with the nurse Pneumonia -continue abx, try to wean pt off the oxygen and monitor O2 stats I will sign off and can reconsult if needed. ROB BARTON DO Sep 03, 2023 13:47
[2023-09-03] MEDS ORDERED: SCOP1PAT10 TD (13:53)
[2023-09-03] MEDS ORDERED: ALBU2.5V4 INH (14:09)
[2023-09-03 15:43] VITALS: BP 169/74
[2023-09-03 19:24] VITALS: BP 172/77
[2023-09-04] VITALS: BP 150/69
[2023-09-04 04:00] VITALS: BP 155/60
[2023-09-04 05:42] LABS: BASOPHILS % (AUTO) 0 % (0-10); EOSINOPHILS # (AUTO) 0.3 10^3/uL (0.0-0.3); EOSINOPHILS % (AUTO) 4 % (0-10); HEMATOCRIT 25 % (35-52); HEMOGLOBIN 8.1 g/dL (11.5-16.0); LYMPHOCYTES # (AUTO) 1.5 10^3/uL (1.0-4.0); LYMPHOCYTES % (AUTO) 19 % (12-44); MEAN CORPUSCULAR HEMOGLOBIN 29 pg (25-34); MEAN CORPUSCULAR HGB CONC 32 g/dL (32-36); MEAN CORPUSCULAR VOLUME 89 fL (80-99); MEAN PLATELET VOLUME 9.2 fL (9.0-12.2); MONOCYTES # (AUTO) 0.9 10^3/uL (0.0-1.0); MONOCYTES % (AUTO) 11 % (0-12); NEUTROPHILS # (AUTO) 5.2 10^3/uL (1.8-7.8); NEUTROPHILS % (AUTO) 66 % (42-75); PLATELET COUNT 231 10^3/uL (130-400); WHITE BLOOD COUNT 7.9 10^3/uL (4.3-11.0)
[2023-09-04 06:11] LABS: ALBUMIN 2.6 GM/DL (3.2-4.5); BILIRUBIN,TOTAL 0.5 MG/DL (0.1-1.0); CALCIUM 8.6 MG/DL (8.5-10.1); CREATININE SERUM 0.7 MG/DL (0.60-1.30); POTASSIUM 3.2 MMOL/L (3.6-5.0); TOTAL PROTEIN 5.4 GM/DL (6.4-8.2)
[2023-09-04] MEDS: LACTATED RINGERS 1,000 ML 1,000 ML IV SCH (06:15)
[2023-09-04] MEDS: PANTOPRAZOLE INJECTION 40 MG VIAL IV SCH (06:15)
[2023-09-04] MEDS: PIPERACILLIN/Tazobactam 4.5 GM in NS (IVPB) 100 ML 100 ML IV SCH (06:15)
[2023-09-04] MEDS: RT-Ipratropium/Albuterol NEB 3 ML VIAL INH SCH (07:30)
[2023-09-04 07:42] VITALS: BP 122/64
[2023-09-04] MEDS ORDERED: CEPH500T PO (09:15)
--- NOTE | 2023-09-04 09:21 | Discharge Summary ---
Diagnosis/Chief Complaint Date of Admission Aug 31, 2023 at 21:21 Date of Discharge Discharge Date: Sep 03, 2023 Admission Diagnosis Sepsis Primary Care Ulises Mercado V DO Discharge Summary Discharge Physical Exam Allergies: Coded Allergies: melatonin (Verified Allergy, Unknown, 03/12/22) nitrofurantoin (Verified Allergy, Unknown, 05/21/23) quetiapine (Verified Adverse Reaction, Unknown, CONFUSION, 08/25/22) confusion Vitals & I&Os Vital Signs Date Time Temp Pulse Resp B/P (MAP) Pulse Ox O2 Delivery O2 Flow Rate FiO2 09/04/23 14:39 35.8 78 16 136/70 93 Nasal Cannula 2.00 General Appearance: No Apparent Distress, Chronically ill, Thin Cardiovascular: Regular Rate, Rhythm Gastrointestinal: Soft, Other (PEG) Neurologic/Psychiatric: Alert, Other (expressive aphasia) Hospital Course Patient was admitted to the hospital secondary to sepsis due to urinary tract infection and questionable pneumonia. She also had coffee-ground contents in her PEG tube. Surgery was consulted and she was treated with PPI. Her hemoglobin improved so EGD was deferred. She was treated with IV antibiotics and that improved as well. She was discharged back to her residential in stable improved condition to follow-up with her primary care physician. Labs (last 24 hrs) Microbiology 08/31/23 Urine Culture - Final, Complete Proteus mirabilis 08/31/23 Blood Culture - Final, Complete Staphylococcus epidermidis No Susceptibility Performed See Comments Patient resulted labs reviewed. Pending Labs Discussion & Recommendations Discharge Planning: >30 minutes discharge planning Discharge Home Medications: Active Scripts Active Cephalexin 500 Mg Tablet 500 Mg PO BID Reported Albuterol Sulfate 2.5 Mg/3 Ml (0.083 %) Vial.neb 1 Vial INH Q6H PRN Transderm-Scop (Scopolamine) 1 Mg/3 Day Patch.td72 1 Each TD Q72H Protonix (Pantoprazole Sodium) 40 Mg Granpkt.dr 40 Mg PEG 0930,2130 RINSE WITH 10ML OF APPLE JUICE Constulose (Lactulose) 10 Gram/15 Ml Solution 15 Ml PEG BID PRN Acetaminophen 325 Mg Tablet 650 Mg PEG 0000,0800,1600 TAKES 2 (325MG) TAB Vitamin D3 (Cholecalciferol (Vitamin D3)) 125 Mcg/Ml (5000 Unit/Ml) Drops 0.5 Ml PEG HS Lidocaine 5% Patch (Lidocaine) 5 % Adh..patch 1 Each TP DAILY APPLY TO UPPER LEFT ARM Metamucil Packet (Psyllium Husk (with Sugar)) 3.4 Gram Powd.pack 3.4 Gm PEG BID Ondansetron HCl 4 Mg Tablet 4 Mg PEG Q8H PRN [id number] (Polyethylene Glycol 3350) 17 Gram/Dose Powder 17 Gm PEG DAILY Ocusoft Lid Scrub (Eyelid Cleanser Combination #5) 1 Each Med..pad 1 Each TP ISHAAN LY Vitamin C (Ascorbic Acid) 1,000 Mg Tablet 1,000 Mg PEG DAILY TAKES 2 (500MG) TABS Allopurinol 100 Mg Tablet 100 Mg PEG DAILY Refresh Tears (Carboxymethylcellulose Sodium) 0.5 % Drops 1 Drop OU QID Aspirin 81 Mg Tab.chew 81 Mg PEG HS Amlodipine Besylate 5 Mg Tablet 5 Mg PEG DAILY HOLD IF SBP <100 OR PULSE <60 Instructions to patient/family Please see electronic discharge instructions given to patient. HEATHER DYER MD Sep 04, 2023 09:21
--- NOTE | 2023-09-04 09:24 | Physician Query-Final Dx ---
CHRISTI AGUILAR 09/04/23 0924: Final Diagnosis Give Final Diagnosis Please give Final Diagnosis The medical record reflects the following clinical evidence: Clinical Indicators: RR 18 on admission has mostly been 20 and above highest recorded was 24, O2 sat admission was 92% this was on 4 L (P/F=181), did decrease to 88% at one-point on 4 L (P/F= 153) O2 sats frequently 92 to 93% while on oxygen, has been on 02 continuously since admission, but has been weaned down to 2 L oxygen, Documentation of SOA at Rest on admission and ongoing. Risk Factor(s): Advanced age, Aspiration PNA and Sepsis, no indication of 02 use prior to hospitalization documentation of attempting to wean Pt off 02 Treatment: Supplemental 02 up to 4L, Respiratory monitoring, Weaning 02 Acute respiratory failure with hypoxia, present on admission Other explanation of clinical findings Unable to determine (no explanation for clinical findings) Please clarify and document your clinical opinion in the progress notes and discharge summary including the definitive and/or presumptive diagnosis, (suspected or probable), related to the above clinical findings. Please include clinical findings supporting your diagnosis. Christi Aguilar, MSN, RN Clinical Home Management Supervisor [phone] [email or web address] HEATHER DYER MD 09/04/23 1214: Final Diagnosis Give Final Diagnosis Acute respiratory failure- JONATHANVincent CHRISTI AGUILAR Sep 04, 2023 09:24 HEATHER DYER MD Sep 04, 2023 12:14
[2023-09-04 11:45] VITALS: BP 136/70
[2023-09-04 14:39] VITALS: BP 136/70
== END 2023-09-04 14:43 | DRG 871 ==
LOC: EDUNIT# 18:04 → ER 18:05 → 4TH 21:21
PROVIDERS: ADMIT Family Medicine; ATTEND Family Medicine
DX: A41.9 Sepsis, unspecified organism (principal); J69.0 Pneumonitis due to inhalation of food and vomit; J96.01 Acute respiratory failure with hypoxia; N39.0 Urinary tract infection, site not specified; N17.9 Acute kidney failure, unspecified; K94.23 Gastrostomy malfunction; G11.9 Hereditary ataxia, unspecified; R65.20 Severe sepsis without septic shock; Z79.82 Long term (current) use of aspirin; Z79.899 Other long term (current) drug therapy; F03.90 Unspecified dementia, unspecified severity, without behavioral disturbance, psychotic disturbance, mood disturbance, and anxiety; Z11.52 Encounter for screening for COVID-19; I48.91 Unspecified atrial fibrillation; I10 Essential (primary) hypertension; E03.9 Hypothyroidism, unspecified; I25.10 Atherosclerotic heart disease of native coronary artery without angina pectoris; K21.9 Gastro-esophageal reflux disease without esophagitis; M10.9 Gout, unspecified; F32.A Depression, unspecified; D64.9 Anemia, unspecified; R53.81 Other malaise; Z66 Do not resuscitate
CPT/HCPCS: 36415; 71045; 71260; 74177; 80053; 81000; 82150; 82728; 82947; 83540; 83550; 83605; 83690; 83735; 85007; 85025; 85027; 85610; 85730; 87040; 87077; 87088; 87186; 87636; 93041; 94640; 94760; 96361; 96365; 96375